=== PATIENT | male | born 1955 ===

== ENCOUNTER 2017-11-14 15:26 | Inpatient (IN) | payer SELFPAY ==
[2017-11-14] MEDS ORDERED: Multivitamin (MVI) 10 ML, Thiamine 100 MG, Folic Acid 1 MG in Dextrose 5%/0.45% NS 1,00... IV ONE (15:42)
--- NOTE | 2017-11-14 15:53 | ED PDOC ---
HPI: Altered Mental Status Time Seen by Provider: 11/14/17 15:41 Chief Complaint (Nursing): Altered Mental Status History Per: Patient, EMS History/Exam Limitations: Intoxication Onset/Duration Of Symptoms: Days (1) Current Symptoms Are (Timing): Still Present Description Of Symptoms: Confused Usual Baseline: Alert Oriented Exacerbating Factor(s): Alcohol Use Use Of Anticoag/Antiplatlets: No Severity: Moderate Additional History Per: Patient, EMS Associated Symptoms: Disoriented Additional Complaint(s): Patient was BIBA for AMS and possible alcohol intoxication. Patient was loitering on the street around a store. He fell and EMS was called. LOC was not reported. Patient admits to drinking alcohol today. NIHSS Stroke Scale - Date/Time Evaluation Performed Date Performed: 11/14/17 Time Performed: 15:50 When Was NIHSS Performed: Baseline - How Severe is the Stroke Level of Consciousness: 0=Alert LOC to Questions: 2=Neither correct LOC to commands: 0=Obeys both correctly Best Gaze: 0=Normal Visual: 0=No visual loss Facial: 0=Normal Motor Arm - Left: 0=No drift Motor Arm - Right: 0=No drift Motor Leg - Left: 0=No drift Motor Leg - Right: 0=No drift Limb Ataxia: 0=Absent Sensory: 0=Normal Best Language: 0=No aphasia Dysarthia: 1=Mild to moderate slurring Extinction & Inattention (Neglect): 0=Normal, no object Score: 3 Severity Of Stroke: 1-4 = Minor Stroke rTPA Inclusion/Exclusion - Refusal of Treatment Patient Refused Treatment: No - Inclusion Criteria for Altepase Patient is 18 years or Older: Yes Clinical DX Ischemic Stroke Cause Neurological Deficit: No Time of Onset Established Less Than 270 Mins Before TX Begin: No Risk/Benefit Discussed With Patient/Family Member Present: Yes Past Medical History Reviewed: Historical Data, Nursing Documentation, Vital Signs, Unable To Obtain Vital Signs: Last Vital Signs Temp 98.9 F 11/14/17 15:27 Pulse 110 H 11/14/17 15:27 Resp 20 11/14/17 15:27 BP 140/93 H 11/14/17 15:27 Pulse Ox 97 11/14/17 15:27 - Medical History PMH: No Chronic Diseases - Surgical History Surgical History: No Surg Hx - Family History Family History: States: No Known Family Hx - Allergies Allergies/Adverse Reactions: Allergies Allergy/AdvReac Type Severity Reaction Status Date / Time Unobtainable Allergy Verified 11/14/17 15:27 Review of Systems Review Of Systems: ROS cannot be obtained secondary to pt's inabilty to answer questions. Physical Exam - Reviewed Nursing Documentation Reviewed: Yes Vital Signs Reviewed: Yes - Physical Exam Appears: Positive for: No Acute Distress (disheveled) Head Exam: Positive for: ATRAUMATIC, NORMAL INSPECTION, NORMOCEPHALIC Skin: Positive for: Normal Color, Warm, Dry Eye Exam: Positive for: EOMI, PERRL ENT: Positive for: Normal ENT Inspection Neck: Positive for: Painless ROM, Supple Cardiovascular/Chest: Positive for: Regular Rate, Rhythm, Tachycardia Respiratory: Positive for: Normal Breath Sounds. Negative for: Respiratory Distress Gastrointestinal/Abdominal: Positive for: Soft. 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 Negative for: Motor/Sensory Deficits - Laboratory Results Result Diagrams: 11/15/17 04:15 11/15/17 04:15 - ECG O2 Sat by Pulse Oximetry: 97 Medical Decision Making Medical Decision Making: Impression AMS, alcohol abuse, head injury Diff include Alcohol intoxication, alcohol encephalopathy, encephalopathy hepatic, CVA, syncope, head injury with ICH Plan: CBC CMP alcohol ammonia CT head EKG trop reassess 18:[address]: FINDINGS: HEMORRHAGE: No acute parenchymal, subarachnoid or extra-axial hemorrhage. BRAIN: There are moderate to significant diffuse/confluent chronic white matter ischemic changes seen extending from the periventricular into the subcortical regions bilaterally. Changes are most pronounced in the parietal lobes. In addition, there are scattered chronic bilateral basal nuclei lacunar type infarcts. Small lacunar type infarcts also seen both cerebellar hemispheres. Note that the possibility of a small hyperacute infarct cannot be excluded on this study. Clinical correlation recommended. VENTRICLES: There is marked dilatation of the atria and occipital horns possibly secondary to central volume loss on which is above most pronounced in the temporal occipital and parietal watershed zone regions. CALVARIUM: Unremarkable. No acute calvarial fractures. PARANASAL SINUSES: Minor mucosal thickening seen within both maxillary antrum. Minimal mucosal thickening in the ethmoid air complex extending superiorly into the frontal sinus. . There are old bilateral lamina papyracea fractures. . There is focal leftward deviation of the nasal septum associated with a left-sided septal bone bar. MASTOID AIR CELLS: Unremarkable as visualized. No inflammatory changes. OTHER FINDINGS: None. IMPRESSION: Limited motion degraded study. Moderate to significant diffuse/confluent chronic white matter ischemic changes seen extending from the periventricular into the subcortical regions bilaterally. Changes are most pronounced in the parietal lobes. In addition, there are scattered chronic bilateral basal nuclei lacunar type infarcts. Small lacunar type infarcts also seen both cerebellar hemispheres. Note that the possibility of a small hyperacute infarct cannot be excluded on this study. Clinical correlation recommended. Marked dilatation of the atria and occipital horns possibly secondary to central volume loss on which is above most pronounced in the temporal occipital and parietal watershed zone regions [address] Mcneill. He will be consult although considers CVA less likely. Recommends drug screen, admission for AMS further work u to rule out CVA. Disposition - Clinical Impression Clinical Impression: Altered mental status, Alcohol intoxication - Patient ED Disposition Is Patient to be Admitted: Yes Discussed With DrLd: Helio Beaulieu Doctor Will See Patient In The: ED Counseled Patient/Family Regarding: Studies Performed, Diagnosis - Disposition Disposition Time: 06:30 Condition: FAIR - Pt Status Changed To: Hospital Disposition Of: Inpatient - Admit Certification Admit to Inpatient:: After my assessment, the patient will require hospitalization for at least two midnights. This is because of the severity of symptoms shown, intensity of services needed, and/or the medical risk in this patient being treated as an outpatient. - POA Present On Arrival: Falls Or Trauma, Pressure Ulcer (feet)
[2017-11-14 16:48] LABS: BASO % 0.5 % (0.0-2.0); EOS # 0.1 K/uL (0.0-0.7); EOS % 0.7 % (0.0-4.0); HEMOGLOBIN 13.8 g/dL (12.0-18.0); LYMPH # 1.2 K/uL (1.0-4.3); LYMPH % 14.4 % (20.0-40.0); MEAN CELL VOLUME 90.9 fl (80.0-94.0); MEAN CORPUSCULAR HEMOGLOBIN 30.3 pg (27.0-31.0); MEAN CORPUSCULAR HGB CONC 33.3 g/dL (33.0-37.0); MEAN PLATELET VOLUME 9.4 fl (7.2-11.7); MONO # 0.8 K/uL (0.0-0.8); MONO % 10.3 % (0.0-10.0); NEUT # 6.1 K/uL (1.8-7.0); NEUT % 74.1 % (50.0-75.0); RBC 4.56 Mil/uL (4.40-5.90); RED CELL DISTRIBUTION WIDTH 15.1 % (11.5-14.5); WHITE BLOOD COUNT 8.2 K/uL (4.8-10.8)
[2017-11-14 16:55] LABS: ALBUMIN 3.9 g/dL (3.5-5.0); BLOOD UREA NITROGEN 12 mg/dl (9-20); CALCIUM 9.5 mg/dL (8.4-10.2); GFR AFRICAN-AMERICAN > 60; GFR NON-AFRICAN AMERICAN > 60
[2017-11-14 16:56] LABS: ALT/SGPT 29 U/L (21-72); AST/SGOT 36 U/L (17-59)
--- NOTE | 2017-11-14 18:01 | CT ---
PROCEDURE: CT HEAD WITHOUT CONTRAST. HISTORY: AMS COMPARISON: None available. TECHNIQUE: Axial computed tomography images were obtained through the head/brain without intravenous contrast. Radiation dose: Total exam DLP = 1333.33 mGy-cm. This CT exam was performed using one or more of the following dose reduction techniques: Automated exposure control, adjustment of the mA and/or kV according to patient size, and/or use of iterative reconstruction technique. FINDINGS: HEMORRHAGE: No acute parenchymal, subarachnoid or extra-axial hemorrhage. BRAIN: There are moderate to significant diffuse/confluent chronic white matter ischemic changes seen extending from the periventricular into the subcortical regions bilaterally. Changes are most pronounced in the parietal lobes. In addition, there are scattered chronic bilateral basal nuclei lacunar type infarcts. Small lacunar type infarcts also seen both cerebellar hemispheres. Note that the possibility of a small hyperacute infarct cannot be excluded on this study. Clinical correlation recommended. VENTRICLES: There is marked dilatation of the atria and occipital horns possibly secondary to central volume loss on which is above most pronounced in the temporal occipital and parietal watershed zone regions. CALVARIUM: Unremarkable. No acute calvarial fractures. PARANASAL SINUSES: Minor mucosal thickening seen within both maxillary antrum. Minimal mucosal thickening in the ethmoid air complex extending superiorly into the frontal sinus. . There are old bilateral lamina papyracea fractures. . There is focal leftward deviation of the nasal septum associated with a left-sided septal bone bar. MASTOID AIR CELLS: Unremarkable as visualized. No inflammatory changes. OTHER FINDINGS: None. IMPRESSION: Limited motion degraded study. Moderate to significant diffuse/confluent chronic white matter ischemic changes seen extending from the periventricular into the subcortical regions bilaterally. Changes are most pronounced in the parietal lobes. In addition, there are scattered chronic bilateral basal nuclei lacunar type infarcts. Small lacunar type infarcts also seen both cerebellar hemispheres. Note that the possibility of a small hyperacute infarct cannot be excluded on this study. Clinical correlation recommended. Marked dilatation of the atria and occipital horns possibly secondary to central volume loss on which is above most pronounced in the temporal occipital and parietal watershed zone regions
--- NOTE | 2017-11-14 18:43 | CP.PCM.HP ---
History of Present Illness - History of Present Illness History of Present Illness: 63 yo male brought in by EMS after he was found falling in the street with unsteady gait. Patient was unable to give further information. Present on Admission - Present on Admission Any Indicators Present on Admission: No History of DVT/PE: No History of Uncontrolled Diabetes: No Urinary Catheter: No Decubitus Ulcer Present: No Review of Systems - Review of Systems Systems not reviewed;Unavailable: Altered Mental Status Past Patient History - Past Social History Smoking Status: Unknown If Ever Smoked - PSYCHIATRIC Hx Substance Use: No (Unknown) Meds Allergies/Adverse Reactions: Allergies Allergy/AdvReac Type Severity Reaction Status Date / Time Unobtainable Allergy Verified 11/14/17 15:27 Physical Exam - Constitutional Appears: No Acute Distress, Unkempt, Confused - Head Exam Head Exam: ATRAUMATIC - Eye Exam Eye Exam: absent: Scleral icterus - ENT Exam ENT Exam: Mucous Membranes Moist - Neck Exam Neck exam: Negative for: Meningismus - Respiratory Exam Respiratory Exam: absent: Rales, Rhonchi, Wheezes, Respiratory Distress - Cardiovascular Exam Cardiovascular Exam: Tachycardia - GI/Abdominal Exam GI & Abdominal Exam: Soft. absent: Tenderness - Rectal Exam Rectal Exam: Deferred - Neurological Exam Neurological exam: Altered - Psychiatric Exam Psychiatric exam: Flat Affect - Skin Skin Exam: Dry, Intact Results - Vital Signs Recent Vital Signs: Last Vital Signs Temp 98.9 F 11/14/17 15:27 Pulse 110 H 11/14/17 15:27 Resp 20 11/14/17 15:27 BP 140/93 H 11/14/17 15:27 Pulse Ox 97 11/14/17 18:36 - Labs Result Diagrams: 11/14/17 16:30 11/14/17 16:30 Labs: Laboratory Results - last 24 hr 11/14/17 11/14/17 11/14/17 16:10 16:30 16:30 WBC 8.2 RBC 4.56 Hgb 13.8 Hct 41.5 MCV 90.9 MCH 30.3 MCHC 33.3 RDW 15.1 H Plt Count 163 MPV 9.4 Neut % (Auto) 74.1 Lymph % (Auto) 14.4 L [place] % (Auto) 10.3 H Eos % (Auto) 0.7 Baso % (Auto) 0.5 Neut # (Auto) 6.1 Lymph # (Auto) 1.2 [place] # (Auto) 0.8 Eos # (Auto) 0.1 Baso # (Auto) 0.0 Sodium 138 Potassium 3.9 Chloride 96 L Carbon Dioxide 27 Anion Gap 19 BUN 12 Creatinine 0.7 L Est GFR ( Amer) > 60 Est GFR (Non-Af Amer) > 60 POC Glucose (mg/dL) 108 Random Glucose 126 H Calcium 9.5 Total Bilirubin 0.7 AST 36 ALT 29 Alkaline Phosphatase 69 Troponin I < 0.0120 Total Protein 7.6 Albumin 3.9 Globulin 3.7 Albumin/Globulin Ratio 1.0 Alcohol, Quantitative < 10 Assessment & Plan - Assessment and Plan (Free Text) Assessment: 63 yo male brought in by EMS after he was found falling in the street with unsteady gait. Patient was unable to give further information. 1. AMS probably secondary to Alcoholic Encephalopathy IV hydration with NSS 150cc/hr Thiamine 100mg IV Folic Acid 1mg IV serum drug screen CT scan of the head: chronic white matter ischemic changes, chronic lacunar infarct on both cerebellar areas
[2017-11-14 19:11] LABS: BARBITURATES, UR NEGATIVE (NEGATIVE); BENZODIAZEPINES, UR NEGATIVE (NEGATIVE); OPIATES, UR NEGATIVE (NEGATIVE); PHENCYCLIDINE, UR NEGATIVE (NEGATIVE)
[2017-11-15] MEDS: Sodium Chloride 0.9% 1,000 ML IV SCH ×4 (02:16→21:56)
[2017-11-15 05:10] LABS: BASO % 0.4 % (0.0-2.0); EOS # 0.1 K/uL (0.0-0.7); EOS % 0.9 % (0.0-4.0); HEMOGLOBIN 14.2 g/dL (12.0-18.0); LYMPH # 1.9 K/uL (1.0-4.3); LYMPH % 21.7 % (20.0-40.0); MEAN CORPUSCULAR HEMOGLOBIN 30.8 pg (27.0-31.0); MEAN CORPUSCULAR HGB CONC 33.9 g/dL (33.0-37.0); MEAN PLATELET VOLUME 9.3 fl (7.2-11.7); MONO % 10.8 % (0.0-10.0); NEUT # 5.9 K/uL (1.8-7.0); NEUT % 66.2 % (50.0-75.0); NRBC % 0.1 % (0.0-0.0); RBC 4.62 Mil/uL (4.40-5.90); RED CELL DISTRIBUTION WIDTH 15.2 % (11.5-14.5); WHITE BLOOD COUNT 8.9 K/uL (4.8-10.8)
[2017-11-15 05:22] LABS: BLOOD UREA NITROGEN 8 mg/dl (9-20); CALCIUM 8.7 mg/dL (8.4-10.2); GFR AFRICAN-AMERICAN > 60; GFR NON-AFRICAN AMERICAN > 60
[2017-11-15 06:32] LABS: T4 7.05 ug/dl (5.5-11.0)
[2017-11-15 08:41] LABS: PARTIAL THROMBOPLASTIN TIME 29.7 Seconds (25.6-37.1); PROTHROMBIN TIME 11.6 Seconds (9.8-13.1)
[2017-11-15] MEDS ORDERED: Pantoprazole 40 mg EC Tab PO SCH (09:00)
[2017-11-15] MEDS: Thiamine 100 mg/ml Inj IV SCH (09:11)
--- NOTE | 2017-11-15 09:47 | CP.PCM.PN ---
Subjective - Date & Time of Evaluation Date of Evaluation: 11/15/17 Time of Evaluation: 09:30 - Subjective Subjective: Pt is unkempt unknown name No fever remains lethargic but arousable follows simple commands speech slurred denies pain Objective - Vital Signs/Intake and Output Vital Signs (last 24 hours): Temp Pulse Resp BP Pulse Ox 97.7 F 82 20 130/76 98 11/15/17 07:54 11/15/17 09:28 11/15/17 07:54 11/15/17 09:28 11/15/17 07:54 - Medications Medications: Current Medications Aspirin (Aspirin Supp) 300 mg [place] DAILY [facility] Last Admin: 11/15/17 09:15 Dose: 300 mg Sodium Chloride (Sodium Chloride 0.9%) 1,000 mls @ 150 mls/hr IV .Q6H40M [facility] Last Admin: 11/15/17 09:20 Dose: 150 mls/hr Folic Acid 1 mg/ Sodium (Chloride) 100.2 mls @ 60 mls/hr IVPB DAILY [facility] Last Admin: 11/15/17 09:08 Dose: 60 mls/hr Lorazepam (Ativan) 1 mg IVP Q6 PRN PRN Reason: Agitation Pantoprazole Sodium (Protonix Inj) 40 mg IVP DAILY [facility] Thiamine HCl (Vitamin B1 Inj) 100 mg IV DAILY [facility] Last Admin: 11/15/17 09:11 Dose: 100 mg - Labs Labs: 11/15/17 04:15 11/15/17 04:15 PT 11.6 Seconds (9.8-13.1) 11/15/17 08:15 INR 1.0 (0.9-1.2) 11/15/17 08:15 APTT 29.7 Seconds (25.6-37.1) 11/15/17 08:15 - Constitutional Appears: Unkempt, Chronically Ill - Head Exam Head Exam: NORMOCEPHALIC - Eye Exam Eye Exam: Normal appearance - ENT Exam ENT Exam: Mucous Membranes Dry, Normal External Ear Exam - Neck Exam Neck Exam: Full ROM. absent: Meningismus - Respiratory Exam Respiratory Exam: Rales, Rhonchi. absent: Wheezes, Respiratory Distress - Cardiovascular Exam Cardiovascular Exam: REGULAR RHYTHM, +S1, +S2 - GI/Abdominal Exam GI & Abdominal Exam: Soft, Normal Bowel Sounds. absent: Tenderness - Extremities Exam Extremities Exam: Normal Capillary Refill. absent: Calf Tenderness, Pedal Edema Additional comments: moves all extremities - Neurological Exam Additional comments: lethargic follows simple command said " NO" when asked if he is in pain" Shaked head when asjked if he has family - Psychiatric Exam Psychiatric exam: Flat Affect - Skin Skin Exam: Dry, Normal Color, Warm Assessment and Plan (1) Altered mental status Status: Acute (2) Slurring of speech Status: Acute (3) HTN (hypertension) Status: Chronic (4) DVT prophylaxis Status: Acute - Assessment and Plan (Free Text) Assessment: White male , Tez White , unkempt, unknown if homeless, per ED documentation, he admitted to Alcoholism, he observed to be falling in the street so was brought in by EMS Pt is lethargic however arousable and follows simple commands however his speech is slurred. CT of head : Moderate to significant diffuse/confluent chronic white matter ischemic changes seen extending from the periventricular into the subcortical regions bilaterally. Changes are most pronounced in the parietal lobes. In addition, there are scattered chronic bilateral basal nuclei lacunar type infarcts. Small lacunar type infarcts also seen both cerebellar hemispheres. Note that the possibility of a small hyperacute infarct cannot be excluded on this study. Clinical correlation recommended. Marked dilatation of the atria and occipital horns possibly secondary to central volume loss on which is above most pronounced in the temporal occipital and parietal watershed zone regions (1) Altered mental status with Slurring of speech, unclear etiology - prob sec to ETOH withdrawal r/o CVA Chronic infarcts seen on CT of head Neuro consult Neuro checks start ASA, statin DVT proph ECHO MRI of brain Carotid Sono (2) HTN (hypertension) Status: Chronic ? sec to withdrawal vs chronic monitor closely allow for permissive HTN for now 3. ? Alcoholism unclear if alcoholic ETOH level low urine Tox : neg Thiamine and FA watch for active withdrawal sxs (4) DVT prophylaxis Status: Acute Lovenox
--- NOTE | 2017-11-15 17:01 | US ---
PROCEDURE: Duplex ultrasound of the carotid and vertebral arteries. HISTORY: Altered mental status, r/o tia, encephalopathy COMPARISON: None available. TECHNIQUE: Grayscale and duplex Doppler evaluation of the cervical carotid and vertebral arteries were performed. The common carotid, carotid bifurcations and cervical ICA and proximal ECA were evaluated. The vertebral arteries were evaluated for gross patency and direction. FINDINGS: RIGHT CAROTID ARTERIES: Common Carotid Artery: Intimal thickening is present Maximal flow velocity of 120.5 cm/s. Carotid Bifurcation: Intimal thickening is present Internal Carotid Artery:Heterogeneous plaque formation. Maximal flow velocity of 101.2 cm/s. External Carotid Artery (proximal branches): Normal. Maximal flow velocity of 94.6 cm/s. ICA/CCA Ratio: 0.9 LEFT CAROTID ARTERIES: Common Carotid Artery: Intimal thickening is present Maximal flow velocity of 91.4 cm/s. Carotid Bifurcation: Intimal thickening is present Internal Carotid Artery:Patient related issues have resulted in nondiagnostic study of the ICA External Carotid Artery (proximal branches): Normal. Maximal flow velocity of 91.4 cm/s. VERTEBRAL ARTERIES: Right Vertebral Artery: Patent. Antegrade flow. Left Vertebral Artery: Patent. Antegrade flow. OTHER FINDINGS: None. IMPRESSION: Right ICA degree of stenosis: Less than 50% Left nondiagnostic assessment of the left ICA % Reference Internal Carotid Artery (ICA) Peak Systolic Velocity (PSV) for above: 1. Less than 50% stenosis less than 125 cm/s peak systolic velocity 2. 50-69% stenosis 125-230cm/s peak systolic velocity 3. Greater than 70% but less than near occlusion greater than 230 cm/s peak systolic velocity
--- NOTE | 2017-11-15 17:22 | RAD ---
HISTORY: to check for metal prior to MRI COMPARISON: No prior. FINDINGS: BONES: Alignment maintained. No fracture. DISC SPACES: Normal. SOFT TISSUES: Normal. OTHER FINDINGS: No evidence of metallic radiopaque foreign body. IMPRESSION: Normal radiographs of the thoracic spine.
--- NOTE | 2017-11-15 17:23 | RAD ---
PROCEDURE: Cervical Spine Radiographs. HISTORY: Pain. COMPARISON: None. FINDINGS: BONES: Technically limited examination. Vertebral bodies maintained in height. Limited evaluation of lower cervical vertebra. Normal alignment maintained. DISC SPACES: Normal. SOFT TISSUES: Normal. No prevertebral soft tissue swelling. OTHER FINDINGS: No radiopaque metallic foreign body identified. IMPRESSION: Normal cervical spine radiographs
--- NOTE | 2017-11-15 17:27 | RAD ---
PROCEDURE: Radiographs of the Lumbar Spine. HISTORY: to check for metal prior to MRI COMPARISON: No prior. FINDINGS: BONES: Normal alignment. No listhesis. No fracture. DISC SPACES: Narrowing of the L4-5 disc space consistent with degenerative disc disease. The remaining intervertebral disc spaces are maintained in height. OTHER FINDINGS: No radiopaque metallic foreign body identified. IMPRESSION: Degenerative disc disease at L4-5.
--- NOTE | 2017-11-15 20:13 | CP.PCM.CON ---
History of Present Illness - History of Present Illness History of Present Illness: The patient is a 63-year-old Tez White, who was found dysarthric, lethargic on the side-walk and brought in to the ED due to unsteadiness and confusion. He was given Ativan about 1/2 an hour prior to my evaluation and he was not able to provide me with any history. Review of Systems - Review of Systems All systems: reviewed and no additional remarkable complaints except Past Patient History - Past Medical History & Family History Past Medical History?: No - Past Social History Smoking Status: unknown - MUSCULOSKELETAL/RHEUMATOLOGICAL Hx Falls: (unknown) - PSYCHIATRIC Hx Substance Use: No (Unknown) - SURGICAL HISTORY Hx Surgeries: No Other/Comment: Unknown - ANESTHESIA Hx Anesthesia: (unknown) Meds Allergies/Adverse Reactions: Allergies Allergy/AdvReac Type Severity Reaction Status Date / Time Unobtainable Allergy Verified 11/14/17 15:27 - Medications Medications: Current Medications Aspirin (Aspirin Supp) 300 mg [place] DAILY [facility] Last Admin: 11/15/17 09:15 Dose: 300 mg Enoxaparin Sodium (Lovenox) 40 mg SC DAILY [facility] PRN Reason: Protocol Sodium Chloride (Sodium Chloride 0.9%) 1,000 mls @ 150 mls/hr IV .Q6H40M [facility] Last Admin: 11/15/17 17:55 Dose: 150 mls/hr Folic Acid 1 mg/ Sodium (Chloride) 100.2 mls @ 60 mls/hr IVPB DAILY [facility] Last Admin: 11/15/17 09:08 Dose: 60 mls/hr Lorazepam (Ativan) 1 mg IVP Q6 PRN PRN Reason: Agitation Last Admin: 11/15/17 14:39 Dose: 1 mg Pantoprazole Sodium (Protonix Inj) 40 mg IVP DAILY [facility] Last Admin: 11/15/17 10:24 Dose: 40 mg Thiamine HCl (Vitamin B1 Inj) 100 mg IV DAILY [facility] Last Admin: 11/15/17 09:11 Dose: 100 mg Physical Exam - Constitutional Appears: Unkempt, Confused - Neurological Exam Neurological exam: Altered, CN II-XII Intact, Reflexes Normal Additional comments: Moves all extremities to painful stimulus. Reflexes are intact. Results - Vital Signs Recent Vital Signs: Last Vital Signs Temp 97.9 F 11/15/17 19:55 Pulse 107 H 11/15/17 19:55 Resp 17 11/15/17 19:55 BP 131/77 11/15/17 19:55 Pulse Ox 95 11/15/17 19:55 - Labs Result Diagrams: 11/15/17 04:15 11/15/17 04:15 Labs: Laboratory Results - last 24 hr 11/15/17 11/15/17 11/15/17 04:15 04:15 06:00 WBC 8.9 RBC 4.62 Hgb 14.2 Hct 42.0 MCV 91.0 MCH 30.8 MCHC 33.9 RDW 15.2 H Plt Count 163 MPV 9.3 Neut % (Auto) 66.2 Lymph % (Auto) 21.7 [place] % (Auto) 10.8 H Eos % (Auto) 0.9 Baso % (Auto) 0.4 Neut # (Auto) 5.9 Lymph # (Auto) 1.9 [place] # (Auto) 1.0 H Eos # (Auto) 0.1 Baso # (Auto) 0.0 PT INR APTT Sodium 134 Potassium 3.7 Chloride 98 Carbon Dioxide 29 Anion Gap 11 BUN 8 L Creatinine 0.6 L Est GFR ( Amer) > 60 Est GFR (Non-Af Amer) > 60 Random Glucose 110 Hemoglobin A1c 5.6 Calcium 8.7 Triglycerides Cholesterol LDL Cholesterol Direct HDL Cholesterol Vitamin B12 25-OH Vitamin D Total Thyroxine (T4) Total T3 TSH 3rd Generation RPR 11/15/17 11/15/17 11/15/17 06:00 06:00 08:15 WBC RBC Hgb Hct MCV MCH MCHC RDW Plt Count MPV Neut % (Auto) Lymph % (Auto) [place] % (Auto) Eos % (Auto) Baso % (Auto) Neut # (Auto) Lymph # (Auto) [place] # (Auto) Eos # (Auto) Baso # (Auto) PT 11.6 INR 1.0 APTT 29.7 Sodium Potassium Chloride Carbon Dioxide Anion Gap BUN Creatinine Est GFR ( Amer) Est GFR (Non-Af Amer) Random Glucose Hemoglobin A1c Calcium Triglycerides 118 Cholesterol 180 LDL Cholesterol Direct 117 HDL Cholesterol 43 Vitamin B12 292 25-OH Vitamin D Total < 12.8 L Thyroxine (T4) 7.05 Total T3 1.00 L TSH 3rd Generation 0.61 RPR 11/15/17 08:15 WBC RBC Hgb Hct MCV MCH MCHC RDW Plt Count MPV Neut % (Auto) Lymph % (Auto) [place] % (Auto) Eos % (Auto) Baso % (Auto) Neut # (Auto) Lymph # (Auto) [place] # (Auto) Eos # (Auto) Baso # (Auto) PT INR APTT Sodium Potassium Chloride Carbon Dioxide Anion Gap BUN Creatinine Est GFR ( Amer) Est GFR (Non-Af Amer) Random Glucose Hemoglobin A1c Calcium Triglycerides Cholesterol LDL Cholesterol Direct HDL Cholesterol Vitamin B12 25-OH Vitamin D Total Thyroxine (T4) Total T3 TSH 3rd Generation RPR Nonreactive Assessment & Plan (1) Altered mental status Assessment and Plan: Likely due to toxic-metabolic encephalopathy. Will evaluate with EEG and obtain an MRI to determine if there is underlying neuropathology. Will re- examine the patient tomorrow after sedation has worn off. Thank you. Status: Acute Priority: High
[2017-11-16] MEDS ORDERED: Sodium Chloride 0.9% 1,000 ML IV SCH (03:48)
[2017-11-16 05:27] LABS: HEMOGLOBIN 14.2 g/dL (12.0-18.0); MEAN CORPUSCULAR HEMOGLOBIN 30.6 pg (27.0-31.0); MEAN CORPUSCULAR HGB CONC 33.7 g/dL (33.0-37.0); RBC 4.63 Mil/uL (4.40-5.90); WHITE BLOOD COUNT 13.3 K/uL (4.8-10.8)
[2017-11-16 05:46] LABS: BLOOD UREA NITROGEN 7 mg/dl (9-20); CALCIUM 8.5 mg/dL (8.4-10.2); GFR AFRICAN-AMERICAN > 60; GFR NON-AFRICAN AMERICAN > 60
--- NOTE | 2017-11-16 07:53 | RAD ---
HISTORY: SOB/Congestion COMPARISON: No prior. FINDINGS: LUNGS: Respiratory motion is excessive and generate artifacts severely limiting this evaluation. No prominent infiltrate is appreciable. PLEURA: No significant pleural effusion identified ; pneumothorax cannot be excluded in this patient due to respiratory motion related artifact. CARDIOVASCULAR: Normal. OSSEOUS STRUCTURES: No significant abnormalities. VISUALIZED UPPER ABDOMEN: Normal. OTHER FINDINGS: None. IMPRESSION: No gross infiltrate or pleural effusion appreciable. Pneumothorax cannot be excluded greater excessive restrained motion generate artifacts severely limiting this evaluation. Repeat chest radiography recommended when feasible. Clinically correlate further.
[2017-11-16] MEDS ORDERED: Albuterol-Ipratrop 3 mg / 0.5 (3 ml) UD INH STA (08:30)
[2017-11-16] MEDS: Thiamine 100 mg/ml Inj IV SCH (08:32)
[2017-11-16] MEDS ORDERED: Albuterol-Ipratrop 3 mg / 0.5 (3 ml) UD ONE (08:33)
--- NOTE | 2017-11-16 08:54 | CP.PCM.PN ---
Subjective - Date & Time of Evaluation Date of Evaluation: 11/16/17 Time of Evaluation: 08:30 - Subjective Subjective: Noticed that pt is more lethargic than yesterday minimally responsive to pain moves lower extremities Also noted tachypnea coarse BS coming from throat tachycardic Transferrred pt to ICU Pt now intubated on Mech Vent Objective - Vital Signs/Intake and Output Vital Signs (last 24 hours): Temp Pulse Resp BP Pulse Ox 98.1 F 131 H 18 187/95 H 91 L 11/16/17 07:56 11/16/17 07:56 11/16/17 07:56 11/16/17 07:56 11/16/17 07:56 - Medications Medications: Current Medications Aspirin (Aspirin Supp) 300 mg [place] DAILY [facility] Last Admin: 11/15/17 09:15 Dose: 300 mg Enoxaparin Sodium (Lovenox) 40 mg SC DAILY [facility] PRN Reason: Protocol Folic Acid 1 mg/ Sodium (Chloride) 100.2 mls @ 60 mls/hr IVPB DAILY [facility] Last Admin: 11/15/17 09:08 Dose: 60 mls/hr Sodium Chloride (Sodium Chloride 0.9%) 1,000 mls @ 42 mls/hr IV .[id number] [facility] Last Admin: 11/16/17 04:06 Dose: 42 mls/hr Lorazepam (Ativan) 1 mg IVP Q6 PRN PRN Reason: Agitation Last Admin: 11/15/17 14:39 Dose: 1 mg Pantoprazole Sodium (Protonix Inj) 40 mg IVP DAILY [facility] Last Admin: 11/16/17 08:36 Dose: 40 mg Thiamine HCl (Vitamin B1 Inj) 100 mg IV DAILY [facility] Last Admin: 11/16/17 08:32 Dose: 100 mg - Labs Labs: 11/16/17 04:20 11/16/17 04:20 PT 11.6 Seconds (9.8-13.1) 11/15/17 08:15 INR 1.0 (0.9-1.2) 11/15/17 08:15 APTT 29.7 Seconds (25.6-37.1) 11/15/17 08:15 - Constitutional Appears: Obtunded , Unkempt, Chronically Ill - Head Exam Head Exam: NORMOCEPHALIC - Eye Exam Eye Exam: Normal appearance pupils 2-3 mm sluggishly reactive - ENT Exam ENT Exam: Mucous Membranes Dry, Normal External Ear Exam - Neck Exam Neck Exam: Full ROM. absent: Meningismus - Respiratory Exam Respiratory Exam: Rales, Rhonchi. absent: Wheezes tachypneic , coarse BS - Cardiovascular Exam Cardiovascular Exam:tachycardic, REGULAR RHYTHM, +S1, +S2 - GI/Abdominal Exam GI & Abdominal Exam: Soft, Normal Bowel Sounds. absent: Tenderness - Extremities Exam Extremities Exam: Normal Capillary Refill. absent: Calf Tenderness, Pedal Edema noted to move lower extremities - Neurological Exam Obtunded noticed that he withdraws from pain bymoving lower extremities - Psychiatric Exam Psychiatric exam: obtunded - Skin Skin Exam: Dry, Normal Color, Warm Assessment and Plan (1) Altered mental status Status: Acute (2) Slurring of speech Status: Acute (3) HTN (hypertension) Status: Chronic (4) DVT prophylaxis Status: Acute (5) Acute metabolic encephalopathy Status: Acute (6) Acute respiratory insufficiency Status: Acute - Assessment and Plan (Free Text) Assessment: White male , Tez White , unkempt, unknown PMH, per ED documentation - ? Alcoholism . He was brought in by EMS after he was he observed by bystanders falling in the street. Pt was lethargic on admission however arousable , noted to have a facial droop and his speech was slurred. CT of head : Moderate to significant diffuse/confluent chronic white matter ischemic changes seen extending from the periventricular into the subcortical regions bilaterally. Changes are most pronounced in the parietal lobes. In addition, there are scattered chronic bilateral basal nuclei lacunar type infarcts. Small lacunar type infarcts also seen both cerebellar hemispheres. Note that the possibility of a small hyperacute infarct cannot be excluded on this study. Clinical correlation recommended. Marked dilatation of the atria and occipital horns possibly secondary to central volume loss on which is above most pronounced in the temporal occipital and parietal watershed zone regions Today 11/16 : Pt is noted to be obtunded , and unable to clear his secretions, tachypneic and saturation in the 80%. Pt transferred to ICU and intubated for airway protection. Rpt CT of head : no change. 1. Acute Respiratory Insufficiency due to Altered Level of consciousness Pt transferred to ICU Pt unable to clear secretions, tachypneic and desaturating Intubated for airway protection- now on Mech Vent CXR : no infiltrate (2.) Encephalopathy (Altered mental status with Slurring of speech), unclear etiology further work up needed Pt is more lethargic - obtunded today Chronic infarcts seen on CT of head, rpt CT of head 11/16 : no change Neuro consulted Neuro checks cont ASA ECHO MRI of brain Carotid Sono: no significant stenosis EEG Ammonia level normal TSH : normal Pt has no fever, no signs of infection, check Procalcitonin level also check Prolactin (3) HTN (hypertension) Status: Chronic monitor closely allow for permissive HTN for now 4. ? Alcoholism unclear if alcoholic, cannot obtain hx however ED note states that pt ETOH level low urine Tox : neg Thiamine and FA watch for active withdrawal sxs DVT prophylaxis Status: Acute Lovenox
--- NOTE | 2017-11-16 10:02 | CT ---
PROCEDURE: CT HEAD WITHOUT CONTRAST. HISTORY: worsening AMS, r/o Bleed COMPARISON: Unenhanced head CT 11/14/2017. TECHNIQUE: Axial computed tomography images were obtained through the head/brain without intravenous contrast. Radiation dose: Total exam DLP = 993.53 mGy-cm. This CT exam was performed using one or more of the following dose reduction techniques: Automated exposure control, adjustment of the mA and/or kV according to patient size, and/or use of iterative reconstruction technique. FINDINGS: HEMORRHAGE: No intracranial hemorrhage. BRAIN: There remains no evidence to suggest an acute or subacute brain infarction at this time with extensive chronic microangiopathy reiterated and pbke-ar-dirknsiz diffuse cerebral atrophy. Central atrophy versus communicators hydrocephalus pattern remains with a dilated ventricular system again appreciated diffusely. No masses appreciated and multiple right the laminae chronic lacunes are seen as well as in the bilateral basal ganglia. No atrophy or chronic microvascular ischemic changes. VENTRICLES: Unremarkable. No hydrocephalus. CALVARIUM: Unremarkable. PARANASAL SINUSES: Unremarkable as visualized. No significant inflammatory changes. MASTOID AIR CELLS: Unremarkable as visualized. No inflammatory changes. OTHER FINDINGS: None. IMPRESSION: Stable age related neuro degenerative changes are findings are appreciate without definite acute intracranial disease as per standard CT criteria. Central atrophy or a communicating hydrocephalus related diffuse ventricular dilatation is again demonstrated. Further clinical correlation is recommended.
[2017-11-16] MEDS: Enoxaparin 40 mg Syringe SC SCH (10:12)
[2017-11-16] MEDS ORDERED: Sodium Chloride 3% for Inhalation 4 ML VIAL.NEB IH PRN ×2 (10:36→23:43)
[2017-11-16] MEDS ORDERED: Propofol 10 mg/ml Inj (20 ML) IV ONE (10:41)
--- NOTE | 2017-11-16 10:44 | CP.CCUPN ---
<JoseSánchezMich - Last Filed: 11/16/17 14:45> CCU Subjective - Physician Review Events Since Last Encounter (Free Text): ICU Admission note, transfer from [address] [place] [address] 63 y/o male, with an unknown PMHx, whom was admitted to telemetry on 11/14/2017 secondary to AMS has been transferred to the ICU secondary to being obtunded, unable to clear secretions, tachypnea and desaturation to 81%. Pt was evaluated at bedside in telemetry, put on 100% re-breather, and saturation only improved to 92%. He was obtunded, tachypneic and unable to clear airway secretions. All Labs and imaging reviewed during hospital stay thus far. ROS: unobtainable 2/2 to mental status PMHx: unobtainable Psurghx: unobtainable Meds: unobtainable ALL: unobtainable FamilyHx: unobtainable SocialHx: as per PMD, he has a suspected history of ETOH abuse, however quantifying level of abuse is unobtainable CCU Objective - Vital Signs / Intake & Output Vital Signs (Last 4 hours): Vital Signs Temp Pulse Resp BP Pulse Ox 11/16/17 09:00 131 H 80 L 11/16/17 08:30 98 F 122 H 24 127/81 94 L 11/16/17 07:56 98.1 F 131 H 18 187/95 H 91 L Intake and Output (Last 8hrs): Intake & Output 11/15/17 11/16/17 11/16/17 22:59 06:59 14:59 Intake Total 184 Balance 184 Intake: IV 84 Intake, Piggyback 100 - Physical Exam Physical Exam Limitations: Positive for: Altered Mental Status, Uncooperative Head: Positive for: Atraumatic, Normocephalic. Negative for: Ecchymosis, Abrasion, Laceration Pupils: Positive for: PERRL Extroacular Muscles: Positive for: EOMI. Negative for: Gaze Palsy Conjunctiva: Positive for: Normal. Negative for: Injected, Icteric Ears: Positive for: Normal Mouth: Positive for: Moist Mucous Membranes. Negative for: Normal Teeth ( missing dentition ) Pharnyx: Positive for: Normal. Negative for: ERYTHEMA, EXUDATE, TONSILS ENLARGED Neck: Positive for: Normal Range of Motion, Trachea Midline. Negative for: Meningeal Signs, JVD, Lymphadenopathy Respiratory/Chest: Positive for: Clear to Auscultation, Respiratory Distress, Accessory Muscle Use, Tachypneic. Negative for: Decreased Breath Sounds, Rales , Retracting, Rhonchi, Tender to Palpation Cardiovascular: Positive for: Normal S1, S2, Peripheal Pulses Present, Tachycardic. Negative for: Regular Rate and Rhythm, Murmurs, Irregular Rhythm, Rub, Gallop, Muffled Abdomen: Positive for: Normal Bowel Sounds. Negative for: Tenderness, Distention, Peritoneal Signs Upper Extremity: Positive for: Normal Inspection, Capillary Refill < 2s. Negative for: Cyanosis, Edema Lower Extremity: Positive for: Normal Inspection, NORMAL PULSES, Neurovascularly Intact, Capillary Refill < 2 s. Negative for: Edema, CALF TENDERNESS, Swelling, Erythema, Temperature Abnormalties Neurological: Negative for: GCS=15 (GCS: 9), Speech Normal (unable to evaluate ) Skin: Positive for: Warm, Dry. Negative for: Normal Color (vitiligo?) Psychiatric: Negative for: Alert, Oriented x 3, Normal Insight, Normal Concentration - Medications Active Medications: Active Medications Generic Name Dose Route Start Last Admin Trade Name Freq PRN Reason Stop Dose Admin Aspirin 300 mg 11/15/17 09:00 11/16/17 10:12 Aspirin Supp MS Not Given DAILY [facility] Enoxaparin Sodium 40 mg 11/16/17 09:00 11/16/17 10:12 Lovenox SC Not Given DAILY [facility] Protocol Folic Acid 1 mg/ Sodium 100.2 mls @ 60 mls/hr 11/15/17 09:00 11/16/17 10:06 Chloride IVPB 60 mls/hr DAILY [facility] Administration Sodium Chloride 1,000 mls @ 42 mls/hr 11/16/17 03:48 11/16/17 04:06 Sodium Chloride 0.9% IV 42 mls/hr .[id number] [facility] Administration Lorazepam 1 mg 11/14/17 18:55 11/15/17 14:39 Ativan IVP 1 mg Q6 PRN Administration Agitation Pantoprazole Sodium 40 mg 11/15/17 09:15 11/16/17 08:36 Protonix Inj IVP 40 mg DAILY [facility] Administration Propofol 7 mg 11/16/17 10:41 Diprivan IV 05/09/18 10:42 ONCE ONE Thiamine HCl 100 mg 11/15/17 09:00 11/16/17 08:32 Vitamin B1 Inj IV 100 mg DAILY [facility] Administration - Patient Studies Lab Studies: Lab Studies 11/16/17 11/16/17 11/15/17 Range/Units 04:20 04:20 08:15 WBC 13.3 H (4.8-10.8) K/uL RBC 4.63 (4.40-5.90) Mil/uL Hgb 14.2 (12.0-18.0) g/dL Hct 42.1 (35.0-51.0) % MCV 91.0 (80.0-94.0) fl MCH 30.6 (27.0-31.0) pg MCHC 33.7 (33.0-37.0) g/dL RDW 15.0 H (11.5-14.5) % Plt Count 159 (130-400) K/uL Sodium 137 (132-148) mmol/l Potassium 3.7 (3.6-5.0) MMOL/L Chloride 100 (98-107) mmol/L Carbon Dioxide 21 L (22-30) mmol/L Anion Gap 20 (10-20) BUN 7 L (9-20) mg/dl Creatinine 0.6 L (0.8-1.5) mg/dl Est GFR ( Amer) > 60 Est GFR (Non-Af Amer) > 60 Random Glucose 106 (75-110) mg/dL Hemoglobin A1c (4.2-6.5) % Calcium 8.5 (8.4-10.2) mg/dL 25-OH Vitamin D Total (30.0-100.0) NG/ML RPR Nonreactive (NONREACTIVE) 11/15/17 11/15/17 Range/Units 06:00 06:00 WBC (4.8-10.8) K/uL RBC (4.40-5.90) Mil/uL Hgb (12.0-18.0) g/dL Hct (35.0-51.0) % MCV (80.0-94.0) fl MCH (27.0-31.0) pg MCHC (33.0-37.0) g/dL RDW (11.5-14.5) % Plt Count (130-400) K/uL Sodium (132-148) mmol/l Potassium (3.6-5.0) MMOL/L Chloride (98-107) mmol/L Carbon Dioxide (22-30) mmol/L Anion Gap (10-20) BUN (9-20) mg/dl Creatinine (0.8-1.5) mg/dl Est GFR ( Amer) Est GFR (Non-Af Amer) Random Glucose (75-110) mg/dL Hemoglobin A1c 5.6 (4.2-6.5) % Calcium (8.4-10.2) mg/dL 25-OH Vitamin D Total < 12.8 L (30.0-100.0) NG/ML RPR (NONREACTIVE) Laboratory Results - last 24 hr 11/15/17 11/15/17 11/15/17 06:00 06:00 08:15 WBC RBC Hgb Hct MCV MCH MCHC RDW Plt Count Sodium Potassium Chloride Carbon Dioxide Anion Gap BUN Creatinine Est GFR ( Amer) Est GFR (Non-Af Amer) Random Glucose Hemoglobin A1c 5.6 Calcium 25-OH Vitamin D Total < 12.8 L RPR Nonreactive 11/16/17 11/16/17 04:20 04:20 WBC 13.3 H RBC 4.63 Hgb 14.2 Hct 42.1 MCV 91.0 MCH 30.6 MCHC 33.7 RDW 15.0 H Plt Count 159 Sodium 137 Potassium 3.7 Chloride 100 Carbon Dioxide 21 L Anion Gap 20 BUN 7 L Creatinine 0.6 L Est GFR ( Amer) > 60 Est GFR (Non-Af Amer) > 60 Random Glucose 106 Hemoglobin A1c Calcium 8.5 25-OH Vitamin D Total RPR Fingerstick Blood Sugar Results: 108 Review of Systems - Review of Systems Systems not reviewed;Unavailable: Intubated Critical Care Progress Note - Ventilator Checklist Head of Bed 30 Degrees: Yes PUD Prophalyxis: Yes DVT Prophylaxis: Yes Oral Care with Chlorhexidine Gluconate {CHG}: Yes - Vent Settings MODE:: ASSIST CONTROL TIDAL VOLUME:: 450 RESP RATE:: 18 FIO2:: 60 PEEP:: 5 - Extremities/Vascular Does the Patient have a Central Venous Catheter?: No Does the Patient have a Holloway Catheter?: Yes Does the Patient need a Holloway Catheter?: Yes Catheter Insertion Criteria: Patient requires prolonged immobilization - Restraints Justification for Restraints: High risk for self extubation, High risk for removing IV access, High risk for harming self - Prophylaxis GI Prophylaxis GI: PPI - Prophylaxis DVT Prophylaxis DVT: Lovenox, SCDs - Nutrition Nutrition: Nutrition Category Date Time Status NPO Diet [DIET] Diets 11/15/17 Lunch Active Assessment/Plan - Assessment and Plan (Free Text) Assessment: 63 y/o male, with unobtainable medical history, admitted to hospital for AMS of uncertain etiology, transferred to ICU due to worsening mental status, tachypnea , and desaturation. Plan: 1) Altered Mental Status -unlikely due to Acute CVA as noncontrast head CT negative x 2, with no interval change appreciated -Rule out toxic-metabolic encephalopathy -Rule out Nonconvulsive status epilepticus -rule out POOLROOM TABLE ATTENDANT infection -rule out autoimmune etiology -HIV, Prolactin, ESR/CRP, sputum cultures, Urine cultures, labs pending and re- evaluate -EEG/Brain MRI pending as per Neuro team -all other labs and imaging reviewed, there are no visible or extraordinary findings to currently account for current clinical condition. -c/w with Propofol drip for sedation -wrist splinting 2) Suspect history of ETOH abuse -no elevation in tranasminases -abd u/s pending -currently on Thiamine/Folate IV supplementation -maintenance fluids 3) Elevated Blood Pressure without Diagnosis of HTN -labs reviewed -monitor BPs 4) Leukocytosis -afebrile -CXR clear -f/u urine/sputum cultures -recheck AM labs 5) Prophylaxis -Head of bed elevation @ 30 degrees -Protonix 40mg IVP QD -Lovenox 40mg SC QD -SCDs 6) Code Status: -Full code <[email or web address] Yun - Last Filed: 11/16/17 18:38> CCU Subjective - Physician Review Events Since Last Encounter (Free Text): Attestation: Patient seen and examined at the bedside with Resident Dr. Chastity Garcia; and I agree with his outline of plans and management documented below as discussed on AM rounds reflecting my review of all applicable clinical data, and participation in the care of the patient throughout the day in ICU; today, November.
[2017-11-16 12:02] LABS: SQUAMOUS EPITHIAL 1 /hpf (0-5); URINE AMORPHOUS SEDIMENT RARE /ul (<OCC); URINE BACTERIA RARE (<OCC); URINE BILIRUBIN NEGATIVE (NEGATIVE); URINE BLOOD MODERATE (NEGATIVE); URINE CLARITY SLIGHTY-CLOUDY (Clear); URINE COLOR YELLOW (YELLOW); URINE GLUCOSE (UA) NEG (Normal); URINE LEUKOCYTE ESTERASE NEG Leu/uL (Negative); URINE PROTEIN NEGATIVE (NEGATIVE)
--- NOTE | 2017-11-16 12:02 | CARD ---
APPROVED REPORT EXAM: Two-dimensional and M-mode echocardiogram with Doppler and color Doppler. Other Information Quality : GoodRhythm : NSR INDICATION AMS 2D DIMENSIONS IVSd1.28 (0.7-1.1cm)LVDd3.94 (3.9-5.9cm) LVOT Diameter1.83 (1.8-2.4cm)PWd1.06 (0.7-1.1cm) IVSs1.53 (0.8-1.2cm)LVDs2.36 (2.5-4.0cm) FS (%) 40.1 %PWs1.22 (0.8-1.2cm) M-Mode DIMENSIONS Left Atrium (MM)4.53 (2.5-4.0cm)IVSd0.78 (0.7-1.1cm) Aortic Root2.84 (2.2-3.7cm)LVDd6.06 (4.0-5.6cm) Aortic Cusp Exc.1.91 (1.5-2.0cm)PWd1.22 (0.7-1.1cm) IVSs1.72 cmFS (%) 44 % LVDs3.38 (2.0-3.8cm)PWs1.56 cm Mitral Valve E/A ratio0.0 TDI E/Lateral E'0.0E/Medial E'0.0 Pulmonary Valve PV Peak [id number]/s LEFT VENTRICLE The left ventricle is normal size. There is normal left ventricular wall thickness. Left ventricle systolic function is normal. The LVEF is 65% There is normal LV segmental wall motion. Transmitral Doppler flow pattern is Grade IV-fixed restrictive diastolic dysfunction. No left ventricle thrombus noted on this study. There is no ventricular septal defect visualized. There is no left ventricular aneurysm. There is no mass noted in the left ventricle. RIGHT VENTRICLE The right ventricle is normal size. There is normal right ventricular wall thickness. The right ventricular systolic function is normal. ATRIA The left atrium size is normal. The right atrium size is normal. The interatrial septum is intact with no evidence for an atrial septal defect. AORTIC VALVE The aortic valve is normal in structure. No aortic regurgitation is present. There is no aortic valvular stenosis. There is no aortic valvular vegetation. MITRAL VALVE The mitral valve is normal in structure. There is no evidence of mitral valve prolapse. There is no mitral valve stenosis. There is no mitral valve regurgitation noted. TRICUSPID VALVE The tricuspid valve is normal in structure. There is no tricuspid valve regurgitation noted. There is no tricuspid valve prolapse or vegetation. There is no tricuspid valve stenosis. PULMONIC VALVE The pulmonary valve is normal in structure. There is no pulmonic valvular regurgitation. There is no pulmonic valvular stenosis. GREAT VESSELS The aortic root is normal in size. The ascending aorta is normal in size. The IVC is normal in size and collapses >50% with inspiration. PERICARDIAL EFFUSION The pericardium appears normal. There is no pleural effusion. <Conclusion> Essentially Normal Echocardiogram
--- NOTE | 2017-11-16 12:37 | CP.PCM.PN ---
Subjective - Date & Time of Evaluation Date of Evaluation: 11/16/17 Time of Evaluation: 12:32 - Subjective Subjective: Mr. White was seen and examined at the bedside in ICU. He is on mechanical ventilator on PRVC mode. He is currently receiving propofol drip for sedation, but remains with episode of restlessness. He is on bilateral wrist restraints for patient safety.His pupils remains brisk reactive to light accommodation, + corneal reflex, + gag reflex, and withdraws to pain stimuli. He had an incident this morning such as facial grimaces noted to painful stimuli only, otherwise not responding. extremities stiff.B/P 187/95 [address]resp rapid 24 per min.Pulse oximeter 91% on room air. 0830 pt congested and suctioned orally large amount of thick yellow secretions. HOB elevated.Dr Calderon aware. repeat b/p 127/81. HR [address] pt placed on o2 2 ln/c. pulse oximeter spot check 94%. This prompted the primary team to transfer the patient to ICU for higher level of care. CT scan of the head showed stable age-related neuro- degenerative changes without definite acute intracranial disease. Central atrophy or a communicating hydrocephalus related diffuse ventricular dilation is again demonstrated. Objective - Vital Signs/Intake and Output Vital Signs (last 24 hours): Temp Pulse Resp BP Pulse Ox 98.8 F 116 H 24 136/91 H 98 11/16/17 11:25 11/16/17 11:25 11/16/17 11:25 11/16/17 11:25 11/16/17 11:25 Intake and Output: 11/16/17 11/16/17 06:59 18:59 Intake Total 226 Balance 226 - Medications Medications: Current Medications Aspirin (Aspirin Supp) 300 mg [place] DAILY [facility] Last Admin: 11/16/17 10:12 Dose: Not Given Enoxaparin Sodium (Lovenox) 40 mg SC DAILY [facility] PRN Reason: Protocol Last Admin: 11/16/17 10:12 Dose: Not Given Folic Acid 1 mg/ Sodium (Chloride) 100.2 mls @ 60 mls/hr IVPB DAILY [facility] Last Admin: 11/16/17 10:06 Dose: 60 mls/hr Sodium Chloride (Sodium Chloride 0.9%) 1,000 mls @ 42 mls/hr IV .[id number] [facility] Last Admin: 11/16/17 04:06 Dose: 42 mls/hr Lorazepam (Ativan) 1 mg IVP Q6 PRN PRN Reason: Agitation Last Admin: 11/15/17 14:39 Dose: 1 mg Pantoprazole Sodium (Protonix Inj) 40 mg IVP DAILY [facility] Last Admin: 11/16/17 08:36 Dose: 40 mg Thiamine HCl (Vitamin B1 Inj) 100 mg IV DAILY [facility] Last Admin: 11/16/17 08:32 Dose: 100 mg - Labs Labs: 11/16/17 04:20 11/16/17 04:20 PT 11.6 Seconds (9.8-13.1) 11/15/17 08:15 INR 1.0 (0.9-1.2) 11/15/17 08:15 APTT 29.7 Seconds (25.6-37.1) 11/15/17 08:15 - Constitutional Appears: No Acute Distress - Head Exam Head Exam: NORMAL INSPECTION - Eye Exam Pupil Exam: Miosis, PERRL Additional comments: bilateral eyes are 3mm in size. - Neurological Exam Neuro motor strength exam: Left Upper Extremity: 3, Right Upper Extremity: 3, Left Lower Extremity: 4, Right Lower Extremity: 4 Additional comments: His pupils remains brisk reactive to light accommodation, + corneal reflex, + gag reflex, and withdraws to pain stimuli. He is able to move all extremities spontaneously. Assessment and Plan (1) Acute metabolic encephalopathy Assessment & Plan: Case discussed with Dr. Mcneill, continue all current medical regimens. Recommend MRI of the brain and EEG to evaluate any brain pathology. Status: Acute
--- NOTE | 2017-11-16 13:41 | RAD ---
HISTORY: post-intubation COMPARISON: Chest radiograph performed approximately 6.5 hours prior. FINDINGS: LUNGS: No active pulmonary disease. PLEURA: No significant pleural effusion identified, no pneumothorax apparent. CARDIOVASCULAR: Atherosclerotic aortic calcifications. Cardiomediastinal silhouette unchanged. OSSEOUS STRUCTURES: Unchanged. VISUALIZED UPPER ABDOMEN: Normal. OTHER FINDINGS: Endotracheal tube with tip at the level of the clavicular head. IMPRESSION: Interval placement of endotracheal tube in satisfactory position.
--- NOTE | 2017-11-16 14:25 | PCM.PROC ---
Procedures Attestation:: I certify that I have explained the specified Operation(s) or Procedure(s), risks, benefits and reasonable alternatives to the Patient and/or other person responsible. The opportunity was given to ask questions and all questions answered - Intubation Time Out Performed: Yes (10:50am ) Sedative: Other (Propofol 70mg ) Mg Given: 70mg Laryngoscope: Flex ET Tube Size: 8.0 ET Tube Uncuffed: No ET Tube Secured at Depth: 23cm at the gums ET Tube Secured Locarion: Lips ET Tube Placement Confirmation: Visualized Passing Through Cords, Breath Sounds Equal Bilaterally, No Breath Sounds Over Epigastrum, Confirmation w/Capnometry Patient Tolerated Procedure: Well Procedure Immediate Complications: None Additional comments: ETCO2 color change confirmed upon CXR done, ET tube with proper placement, above yan
[2017-11-16] MEDS: Sodium Chloride 0.9% 1,000 ML IV SCH (14:29)
[2017-11-16 20:38] LABS: PROLACTIN 7.6 ng/mL (3.7-17.9)
[2017-11-16] MEDS ORDERED: Piperacillin/Tazobact 3.375 GM in Sodium Chloride 0.9% 100 ML IVPB SCH (21:00)
[2017-11-17 04:29] LABS: ABG ALLEN TEST YES; ARTERIAL BLOOD GAS HCO3 24.3 mmol/L (21-28); ARTERIAL BLOOD GAS O2 SAT 99.1 % (95-98); ARTERIAL BLOOD GAS PCO2 37 mm/Hg (35-45); ARTERIAL BLOOD GAS PH 7.41 (7.35-7.45); ARTERIAL BLOOD GAS PO2 124 mm/Hg (80-100); ARTERIAL BLOOD GAS TCO2 24.6 mmol/L (22-28)
[2017-11-17 06:02] LABS: HEMOGLOBIN 13.6 g/dL (12.0-18.0); MEAN CELL VOLUME 91.9 fl (80.0-94.0); MEAN CORPUSCULAR HEMOGLOBIN 30.6 pg (27.0-31.0); MEAN CORPUSCULAR HGB CONC 33.3 g/dL (33.0-37.0); RBC 4.46 Mil/uL (4.40-5.90); RED CELL DISTRIBUTION WIDTH 14.8 % (11.5-14.5); WHITE BLOOD COUNT 22.4 K/uL (4.8-10.8)
[2017-11-17] MEDS: Sodium Chloride 0.9% 1,000 ML IV SCH (06:33)
[2017-11-17 06:35] LABS: ALB/GLOB RATIO 0.9 (1.0-2.1); ALBUMIN 3.3 g/dL (3.5-5.0); ALT/SGPT 23 U/L (21-72); AST/SGOT 34 U/L (17-59); BLOOD UREA NITROGEN 17 mg/dl (9-20); CALCIUM 8.5 mg/dL (8.4-10.2); GFR AFRICAN-AMERICAN > 60; GFR NON-AFRICAN AMERICAN > 60
[2017-11-17] MEDS ORDERED: Potassium Chloride 20 mEq/15 ml LIQ UD GT ONE ×2 (06:51→11:00)
[2017-11-17] MEDS: Morphine 4 MG/ML VIAL IVP PRN (07:35)
--- NOTE | 2017-11-17 09:11 | US ---
HISTORY: rule out liver pathology COMPARISON: None. TECHNIQUE: Sonographic evaluation of the abdomen. FINDINGS: LIVER: Measures 13.7 cm. Normal echogenicity of the liver parenchyma. No mass. No intrahepatic bile duct dilatation. GALLBLADDER: Unremarkable. No gallstones. COMMON BILE DUCT: Measures 3 mm. No stones. No dilatation. PANCREAS: Not well-visualized. RIGHT KIDNEY: Measures 10.2 x 4.3 x 4.8cm. Normal echogenicity. No calculus, mass, or hydronephrosis. LEFT KIDNEY: Measures 11.3 x 6.3 x 4.4cm. Normal echogenicity. No calculus, mass, or hydronephrosis. SPLEEN: Normal in size and contour. No mass. AORTA: No aneurysmal dilatation. IVC: Unremarkable. OTHER FINDINGS: None. IMPRESSION: Limited evaluation of the pancreas. Otherwise, unremarkable abdominal sonogram.
[2017-11-17] MEDS: Enoxaparin 40 mg Syringe SC SCH (09:41)
--- NOTE | 2017-11-17 09:45 | RAD ---
HISTORY: intubated COMPARISON: Chest radiograph dated 11/16/2017. FINDINGS: LUNGS: No active pulmonary disease. PLEURA: No significant pleural effusion identified, no pneumothorax apparent. CARDIOVASCULAR: Atherosclerotic aortic calcifications. Cardiomediastinal silhouette unchanged. OSSEOUS STRUCTURES: Unchanged. VISUALIZED UPPER ABDOMEN: Normal. OTHER FINDINGS: New enteric tube with tip in the stomach. Endotracheal tube, unchanged. Gaseous distention of bowel. IMPRESSION: Interval placement of enteric tube in satisfactory position.
--- NOTE | 2017-11-17 10:09 | CP.CCUPN ---
<WilliamstephanMich - Last Filed: 11/17/17 16:14> CCU Subjective - Physician Review Subjective (Free Text): pt seen and examined at bedside. No acute events overnight. Fever of 103.0 F. Repeat blood cultures drawn. Afebrile this morning. Vitals stable this morning. On Vent. Unresponsive to painful stimuli. Intermittent decerebrate movements. CCU Objective - Vital Signs / Intake & Output Vital Signs (Last 4 hours): Vital Signs Temp Pulse Resp BP Pulse Ox 11/17/17 08:11 98.8 F 105 H 23 158/85 H 99 11/17/17 07:45 104 H 21 158/85 H 99 11/17/17 07:00 98.6 F 106 H 23 148/90 99 Intake and Output (Last 8hrs): Intake & Output 11/16/17 11/17/17 11/17/17 22:59 06:59 14:59 Intake Total 1315 170 Output Total 200 Balance 1115 170 Intake: IV 1065 170 Intake, Piggyback 250 Output: Urine 200 2-way Urethral 200 - Physical Exam Physical Exam Limitations: Positive for: Altered Mental Status Head: Positive for: Atraumatic, Normocephalic. Negative for: Ecchymosis, Abrasion, Laceration Pupils: Positive for: Pinpoint Extroacular Muscles: Negative for: EOMI, Gaze Palsy Conjunctiva: Positive for: Normal. Negative for: Injected, Icteric Mouth: Positive for: Dry. Negative for: Normal Teeth (missing dentition ) Pharnyx: Positive for: Normal. Negative for: ERYTHEMA, EXUDATE, TONSILS ENLARGED Neck: Positive for: Normal Range of Motion, Trachea Midline. Negative for: Meningeal Signs, JVD, Lymphadenopathy Respiratory/Chest: Positive for: Clear to Auscultation, Respiratory Distress, Accessory Muscle Use, Tachypneic. Negative for: Decreased Breath Sounds, Rales , Retracting, Rhonchi, Tender to Palpation Cardiovascular: Positive for: Normal S1, S2, Peripheal Pulses Present, Tachycardic. Negative for: Regular Rate and Rhythm, Murmurs, Irregular Rhythm, Rub, Gallop, Muffled Abdomen: Positive for: Normal Bowel Sounds. Negative for: Tenderness, Distention, Peritoneal Signs Upper Extremity: Positive for: Normal Inspection, Capillary Refill < 2s. Negative for: Cyanosis, Edema Lower Extremity: Positive for: Normal Inspection, NORMAL PULSES, Neurovascularly Intact, Capillary Refill < 2 s. Negative for: Edema, CALF TENDERNESS, Swelling, Erythema, Temperature Abnormalties Neurological: Positive for: Other (intermittent decerebrate posturing ). Negative for: GCS=15 (GCS: 9), CN II-XII Intact, Speech Normal (unable to evaluate ), Normal Sensory Function, Normal Cerebellar Funct, Norm Deep Tendon Reflexes (asymmetric rigidity with brisk reflexes ) Skin: Positive for: Warm, Dry. Negative for: Normal Color (vitiligo?, chronic skin changes from weather exposure and recurrent friction/trauma ), Laceration Lymphatic: Negative for: Cervical Adenopathy Psychiatric: Negative for: Alert, Oriented x 3, Normal Insight, Normal Concentration - Medications Active Medications: Active Medications Generic Name Dose Route Start Last Admin Trade Name Freq PRN Reason Stop Dose Admin Acetaminophen 650 mg 11/16/17 23:44 11/16/17 23:58 Tylenol 650 Mg Supp W[place] 650 mg Q6 PRN Administration Fever >100.4 F Aspirin 300 mg 11/15/17 09:00 11/16/17 10:12 Aspirin Supp W[place] Not Given DAILY ZIA Enoxaparin Sodium 40 mg 11/16/17 09:00 11/17/17 09:41 Lovenox SC 40 mg DAILY ZIA Administration Protocol Folic Acid 1 mg 11/17/17 09:00 Folic Acid GT DAILY ZIA Sodium Chloride 1,000 mls @ 85 mls/hr 11/16/17 14:15 11/17/17 06:33 Sodium Chloride 0.9% IV 11/18/17 14:15 85 mls/hr .[id number] ZIA Administration Vancomycin HCl 1 gm/ Sodium 250 mls @ 166.667 mls/hr 11/16/17 15:30 11/17/17 09:40 Chloride IVPB 166.667 mls/hr DAILY ZIA Administration Protocol Piperacillin Sod/Tazobactam 100 mls @ 100 mls/hr 11/16/17 21:00 Sod 3.375 gm/ Sodium Chloride IVPB Q12 ZIA Protocol Lorazepam 1 mg 11/14/17 18:55 11/15/17 14:39 Ativan IVP 1 mg Q6 PRN Administration Agitation Lorazepam 1 mg 11/16/17 15:30 11/17/17 01:01 Ativan IVP 1 mg PRN ZIA Administration Morphine Sulfate 4 mg 11/16/17 15:28 11/17/17 07:35 Morphine IVP 4 mg Q4 PRN Administration Pain, moderate (4-7) Pantoprazole Sodium 40 mg 11/15/17 09:15 11/16/17 08:36 Protonix Inj IVP 40 mg DAILY ZIA Administration Potassium Chloride 20 meq 11/17/17 11:00 Potassium Chloride Oral Soln GT 11/17/17 11:01 ONCE ONE Thiamine HCl 100 mg 11/17/17 09:00 Vitamin B1 Tab GT DAILY ZIA - Patient Studies Lab Studies: Microbiology Studies 11/16/17 11:40 Gram Stain - Final Sputum Lab Studies 11/17/17 11/17/17 11/17/17 Range/Units 04:30 04:30 04:00 WBC 22.4 H D (4.8-10.8) K/uL RBC 4.46 (4.40-5.90) Mil/uL Hgb 13.6 (12.0-18.0) g/dL Hct 41.0 (35.0-51.0) % MCV 91.9 (80.0-94.0) fl MCH 30.6 (27.0-31.0) pg MCHC 33.3 (33.0-37.0) g/dL RDW 14.8 H (11.5-14.5) % Plt Count 136 (130-400) K/uL ESR (0-20) mm/hr pCO2 37 (35-45) mm/Hg pO2 124 H (80-100) mm/Hg HCO3 24.3 (21-28) mmol/L ABG pH 7.41 (7.35-7.45) ABG Total CO2 24.6 (22-28) mmol/L ABG O2 Saturation 99.1 H (95-98) % ABG Base Excess -0.8 (-2.0-3.0) mmol/L Roberto Test Yes ABG Potassium 2.9 L (3.6-5.2) mmol/L A-a O2 Difference 258.0 mm/Hg Sodium 141 135.0 (132-148) mmol/L Chloride 103 107.0 (98-107) mmol/L Glucose 90 (75-110) mg/dL Lactate 1.2 (0.7-2.1) mmol/L Vent Mode A/c Mechanical Rate 16 FiO2 60.0 % Tidal Volume 450 PEEP 5 Potassium 3.2 L (3.6-5.0) MMOL/L Carbon Dioxide 23 (22-30) mmol/L Anion Gap 18 (10-20) BUN 17 (9-20) mg/dl Creatinine 0.9 (0.8-1.5) mg/dl Est GFR ( Amer) > 60 Est GFR (Non-Af Amer) > 60 Random Glucose 83 (75-110) mg/dL Lactic Acid (0.7-2.1) MMOL/L Calcium 8.5 (8.4-10.2) mg/dL Total Bilirubin 1.9 H (0.2-1.3) mg/dl AST 34 (17-59) U/L ALT 23 (21-72) U/L Alkaline Phosphatase 52 (38-126) U/L Ammonia (16-60) umo/L C-Reactive Protein (0.0-9.9) mg/L Total Protein 7.0 (6.3-8.2) G/DL Albumin 3.3 L (3.5-5.0) g/dL Globulin 3.7 (2.2-3.9) gm/dL Albumin/Globulin Ratio 0.9 L (1.0-2.1) Procalcitonin (0.19-0.49) NG/ML Prolactin (3.7-17.9) ng/mL Arterial Blood Potassium 2.9 L (3.6-5.2) mmol/L Urine Color (YELLOW) Urine Clarity (Clear) Urine pH (5.0-8.0) Ur Specific [place] (1.003-1.030) Urine Protein (NEGATIVE) mg/dL Urine Glucose (UA) (Normal) mg/dL Urine Ketones (NEGATIVE) mg/dL Urine Blood (NEGATIVE) Urine Nitrate (NEGATIVE) Urine Bilirubin (NEGATIVE) Urine Urobilinogen (0.2-1.0) mg/dL Ur Leukocyte Esterase (Negative) Kallie/uL Urine RBC (Auto) (0-3) /hpf Urine Microscopic WBC (0-5) /hpf Ur Squamous Epith Cells (0-5) /hpf Amorphous Sediment (<OCC) /ul Urine Bacteria (<OCC) HIV 1&2 Ag/Ab, 4th Gen (Nonreactive) 11/16/17 11/16/17 11/16/17 Range/Units 13:54 12:40 12:40 WBC (4.8-10.8) K/uL RBC (4.40-5.90) Mil/uL Hgb (12.0-18.0) g/dL Hct (35.0-51.0) % MCV (80.0-94.0) fl MCH (27.0-31.0) pg MCHC (33.0-37.0) g/dL RDW (11.5-14.5) % Plt Count (130-400) K/uL ESR 19 (0-20) mm/hr pCO2 (35-45) mm/Hg pO2 (80-100) mm/Hg HCO3 (21-28) mmol/L ABG pH (7.35-7.45) ABG Total CO2 (22-28) mmol/L ABG O2 Saturation (95-98) % ABG Base Excess (-2.0-3.0) mmol/L Roberto Test ABG Potassium (3.6-5.2) mmol/L A-a O2 Difference mm/Hg Sodium (132-148) mmol/L Chloride (98-107) mmol/L Glucose (75-110) mg/dL Lactate (0.7-2.1) mmol/L Vent Mode Mechanical Rate FiO2 % Tidal Volume PEEP Potassium (3.6-5.0) MMOL/L Carbon Dioxide (22-30) mmol/L Anion Gap (10-20) BUN (9-20) mg/dl Creatinine (0.8-1.5) mg/dl Est GFR ( Amer) Est GFR (Non-Af Amer) Random Glucose (75-110) mg/dL Lactic Acid (0.7-2.1) MMOL/L Calcium (8.4-10.2) mg/dL Total Bilirubin (0.2-1.3) mg/dl AST (17-59) U/L ALT (21-72) U/L Alkaline Phosphatase (38-126) U/L Ammonia (16-60) umo/L C-Reactive Protein (0.0-9.9) mg/L Total Protein (6.3-8.2) G/DL Albumin (3.5-5.0) g/dL Globulin (2.2-3.9) gm/dL Albumin/Globulin Ratio (1.0-2.1) Procalcitonin 0.08 L (0.19-0.49) NG/ML Prolactin (3.7-17.9) ng/mL Arterial Blood Potassium (3.6-5.2) mmol/L Urine Color (YELLOW) Urine Clarity (Clear) Urine pH (5.0-8.0) Ur Specific [place] (1.003-1.030) Urine Protein (NEGATIVE) mg/dL Urine Glucose (UA) (Normal) mg/dL Urine Ketones (NEGATIVE) mg/dL Urine Blood (NEGATIVE) Urine Nitrate (NEGATIVE) Urine Bilirubin (NEGATIVE) Urine Urobilinogen (0.2-1.0) mg/dL Ur Leukocyte Esterase (Negative) Kallie/uL Urine RBC (Auto) (0-3) /hpf Urine Microscopic WBC (0-5) /hpf Ur Squamous Epith Cells (0-5) /hpf Amorphous Sediment (<OCC) /ul Urine Bacteria (<OCC) HIV 1&2 Ag/Ab, 4th Gen Nonreactive (Nonreactive) 11/16/17 11/16/17 11/16/17 Range/Units 12:40 12:40 12:40 WBC (4.8-10.8) K/uL RBC (4.40-5.90) Mil/uL Hgb (12.0-18.0) g/dL Hct (35.0-51.0) % MCV (80.0-94.0) fl MCH (27.0-31.0) pg MCHC (33.0-37.0) g/dL RDW (11.5-14.5) % Plt Count (130-400) K/uL ESR (0-20) mm/hr pCO2 (35-45) mm/Hg pO2 (80-100) mm/Hg HCO3 (21-28) mmol/L ABG pH (7.35-7.45) ABG Total CO2 (22-28) mmol/L ABG O2 Saturation (95-98) % ABG Base Excess (-2.0-3.0) mmol/L Roberto Test ABG Potassium (3.6-5.2) mmol/L A-a O2 Difference mm/Hg Sodium (132-148) mmol/L Chloride (98-107) mmol/L Glucose (75-110) mg/dL Lactate (0.7-2.1) mmol/L Vent Mode Mechanical Rate FiO2 % Tidal Volume PEEP Potassium (3.6-5.0) MMOL/L Carbon Dioxide (22-30) mmol/L Anion Gap (10-20) BUN (9-20) mg/dl Creatinine (0.8-1.5) mg/dl Est GFR ( Amer) Est GFR (Non-Af Amer) Random Glucose (75-110) mg/dL Lactic Acid 1.8 (0.7-2.1) MMOL/L Calcium (8.4-10.2) mg/dL Total Bilirubin (0.2-1.3) mg/dl AST (17-59) U/L ALT (21-72) U/L Alkaline Phosphatase (38-126) U/L Ammonia 13 L D (16-60) umo/L C-Reactive Protein 74.50 H (0.0-9.9) mg/L Total Protein (6.3-8.2) G/DL Albumin (3.5-5.0) g/dL Globulin (2.2-3.9) gm/dL Albumin/Globulin Ratio (1.0-2.1) Procalcitonin (0.19-0.49) NG/ML Prolactin 7.6 (3.7-17.9) ng/mL Arterial Blood Potassium (3.6-5.2) mmol/L Urine Color (YELLOW) Urine Clarity (Clear) Urine pH (5.0-8.0) Ur Specific [place] (1.003-1.030) Urine Protein (NEGATIVE) mg/dL Urine Glucose (UA) (Normal) mg/dL Urine Ketones (NEGATIVE) mg/dL Urine Blood (NEGATIVE) Urine Nitrate (NEGATIVE) Urine Bilirubin (NEGATIVE) Urine Urobilinogen (0.2-1.0) mg/dL Ur Leukocyte Esterase (Negative) Kallie/uL Urine RBC (Auto) (0-3) /hpf Urine Microscopic WBC (0-5) /hpf Ur Squamous Epith Cells (0-5) /hpf Amorphous Sediment (<OCC) /ul Urine Bacteria (<OCC) HIV 1&2 Ag/Ab, 4th Gen (Nonreactive) 11/16/17 Range/Units 11:40 WBC (4.8-10.8) K/uL RBC (4.40-5.90) Mil/uL Hgb (12.0-18.0) g/dL Hct (35.0-51.0) % MCV (80.0-94.0) fl MCH (27.0-31.0) pg MCHC (33.0-37.0) g/dL RDW (11.5-14.5) % Plt Count (130-400) K/uL ESR (0-20) mm/hr pCO2 (35-45) mm/Hg pO2 (80-100) mm/Hg HCO3 (21-28) mmol/L ABG pH (7.35-7.45) ABG Total CO2 (22-28) mmol/L ABG O2 Saturation (95-98) % ABG Base Excess (-2.0-3.0) mmol/L Roberto Test ABG Potassium (3.6-5.2) mmol/L A-a O2 Difference mm/Hg Sodium (132-148) mmol/L Chloride (98-107) mmol/L Glucose (75-110) mg/dL Lactate (0.7-2.1) mmol/L Vent Mode Mechanical Rate FiO2 % Tidal Volume PEEP Potassium (3.6-5.0) MMOL/L Carbon Dioxide (22-30) mmol/L Anion Gap (10-20) BUN (9-20) mg/dl Creatinine (0.8-1.5) mg/dl Est GFR ( Amer) Est GFR (Non-Af Amer) Random Glucose (75-110) mg/dL Lactic Acid (0.7-2.1) MMOL/L Calcium (8.4-10.2) mg/dL Total Bilirubin (0.2-1.3) mg/dl AST (17-59) U/L ALT (21-72) U/L Alkaline Phosphatase (38-126) U/L Ammonia (16-60) umo/L C-Reactive Protein (0.0-9.9) mg/L Total Protein (6.3-8.2) G/DL Albumin (3.5-5.0) g/dL Globulin (2.2-3.9) gm/dL Albumin/Globulin Ratio (1.0-2.1) Procalcitonin (0.19-0.49) NG/ML Prolactin (3.7-17.9) ng/mL Arterial Blood Potassium (3.6-5.2) mmol/L Urine Color Yellow (YELLOW) Urine Clarity Slighty-cloudy (Clear) Urine pH 6.0 (5.0-8.0) Ur Specific [place] 1.016 (1.003-1.030) Urine Protein Negative (NEGATIVE) mg/dL Urine Glucose (UA) Neg (Normal) mg/dL Urine Ketones 20 (NEGATIVE) mg/dL Urine Blood Moderate (NEGATIVE) Urine Nitrate Negative (NEGATIVE) Urine Bilirubin Negative (NEGATIVE) Urine Urobilinogen 2.0 (0.2-1.0) mg/dL Ur Leukocyte Esterase Neg (Negative) Kallie/uL Urine RBC (Auto) 18 H (0-3) /hpf Urine Microscopic WBC 2 (0-5) /hpf Ur Squamous Epith Cells 1 (0-5) /hpf Amorphous Sediment Rare H (<OCC) /ul Urine Bacteria Rare (<OCC) HIV 1&2 Ag/Ab, 4th Gen (Nonreactive) Laboratory Results - last 24 hr 11/16/17 11/16/17 11/16/17 11:40 12:40 12:40 WBC RBC Hgb Hct MCV MCH MCHC RDW Plt Count ESR pCO2 pO2 HCO3 ABG pH ABG Total CO2 ABG O2 Saturation ABG Base Excess Roberto Test ABG Potassium A-a O2 Difference Sodium Chloride Glucose Lactate Vent Mode Mechanical Rate FiO2 Tidal Volume PEEP Potassium Carbon Dioxide Anion Gap BUN Creatinine Est GFR ( Amer) Est GFR (Non-Af Amer) Random Glucose Lactic Acid Calcium Total Bilirubin AST ALT Alkaline Phosphatase Ammonia 13 L D C-Reactive Protein 74.50 H Total Protein Albumin Globulin Albumin/Globulin Ratio Procalcitonin Prolactin 7.6 Arterial Blood Potassium Urine Color Yellow Urine Clarity Slighty-cloudy Urine pH 6.0 Ur Specific [place] 1.016 Urine Protein Negative Urine Glucose (UA) Neg Urine Ketones 20 Urine Blood Moderate Urine Nitrate Negative Urine Bilirubin Negative Urine Urobilinogen 2.0 Ur Leukocyte Esterase Neg Urine RBC (Auto) 18 H Urine Microscopic WBC 2 Ur Squamous Epith Cells 1 Amorphous Sediment Rare H Urine Bacteria Rare HIV 1&2 Ag/Ab, 4th Gen 11/16/17 11/16/17 11/16/17 12:40 12:40 12:40 WBC RBC Hgb Hct MCV MCH MCHC RDW Plt Count ESR 19 pCO2 pO2 HCO3 ABG pH ABG Total CO2 ABG O2 Saturation ABG Base Excess Roberto Test ABG Potassium A-a O2 Difference Sodium Chloride Glucose Lactate Vent Mode Mechanical Rate FiO2 Tidal Volume PEEP Potassium Carbon Dioxide Anion Gap BUN Creatinine Est GFR ( Amer) Est GFR (Non-Af Amer) Random Glucose Lactic Acid 1.8 Calcium Total Bilirubin AST ALT Alkaline Phosphatase Ammonia C-Reactive Protein Total Protein Albumin Globulin Albumin/Globulin Ratio Procalcitonin Prolactin Arterial Blood Potassium Urine Color Urine Clarity Urine pH Ur Specific [place] Urine Protein Urine Glucose (UA) Urine Ketones Urine Blood Urine Nitrate Urine Bilirubin Urine Urobilinogen Ur Leukocyte Esterase Urine RBC (Auto) Urine Microscopic WBC Ur Squamous Epith Cells Amorphous Sediment Urine Bacteria HIV 1&2 Ag/Ab, 4th Gen Nonreactive 11/16/17 11/17/17 11/17/17 13:54 04:00 04:30 WBC 22.4 H D RBC 4.46 Hgb 13.6 Hct 41.0 MCV 91.9 MCH 30.6 MCHC 33.3 RDW 14.8 H Plt Count 136 ESR pCO2 37 pO2 124 H HCO3 24.3 ABG pH 7.41 ABG Total CO2 24.6 ABG O2 Saturation 99.1 H ABG Base Excess -0.8 Roberto Test Yes ABG Potassium 2.9 L A-a O2 Difference 258.0 Sodium 135.0 Chloride 107.0 Glucose 90 Lactate 1.2 Vent Mode A/c Mechanical Rate 16 FiO2 60.0 Tidal Volume 450 PEEP 5 Potassium Carbon Dioxide Anion Gap BUN Creatinine Est GFR ( Amer) Est GFR (Non-Af Amer) Random Glucose Lactic Acid Calcium Total Bilirubin AST ALT Alkaline Phosphatase Ammonia C-Reactive Protein Total Protein Albumin Globulin Albumin/Globulin Ratio Procalcitonin 0.08 L Prolactin Arterial Blood Potassium 2.9 L Urine Color Urine Clarity Urine pH Ur Specific [place] Urine Protein Urine Glucose (UA) Urine Ketones Urine Blood Urine Nitrate Urine Bilirubin Urine Urobilinogen Ur Leukocyte Esterase Urine RBC (Auto) Urine Microscopic WBC Ur Squamous Epith Cells Amorphous Sediment Urine Bacteria HIV 1&2 Ag/Ab, 4th Gen 11/17/17 04:30 WBC RBC Hgb Hct MCV MCH MCHC RDW Plt Count ESR pCO2 pO2 HCO3 ABG pH ABG Total CO2 ABG O2 Saturation ABG Base Excess Roberto Test ABG Potassium A-a O2 Difference Sodium 141 Chloride 103 Glucose Lactate Vent Mode Mechanical Rate FiO2 Tidal Volume PEEP Potassium 3.2 L Carbon Dioxide 23 Anion Gap 18 BUN 17 Creatinine 0.9 Est GFR ( Amer) > 60 Est GFR (Non-Af Amer) > 60 Random Glucose 83 Lactic Acid Calcium 8.5 Total Bilirubin 1.9 H AST 34 ALT 23 Alkaline Phosphatase 52 Ammonia C-Reactive Protein Total Protein 7.0 Albumin 3.3 L Globulin 3.7 Albumin/Globulin Ratio 0.9 L Procalcitonin Prolactin Arterial Blood Potassium Urine Color Urine Clarity Urine pH Ur Specific [place] Urine Protein Urine Glucose (UA) Urine Ketones Urine Blood Urine Nitrate Urine Bilirubin Urine Urobilinogen Ur Leukocyte Esterase Urine RBC (Auto) Urine Microscopic WBC Ur Squamous Epith Cells Amorphous Sediment Urine Bacteria HIV 1&2 Ag/Ab, 4th Gen Fingerstick Blood Sugar Results: 108 Review of Systems - Review of Systems Systems not reviewed;Unavailable: Intubated Critical Care Progress Note - Ventilator Checklist Head of Bed 30 Degrees: Yes PUD Prophalyxis: Yes (PPI) DVT Prophylaxis: Yes (Lovenox ) - Vent Settings MODE:: ASSIST CONTROL TIDAL VOLUME:: 450 RESP RATE:: 18 FIO2:: 60 PEEP:: 5 - Extremities/Vascular Does the Patient have a Central Venous Catheter?: No Does the Patient have a Holloway Catheter?: Yes Does the Patient need a Holloway Catheter?: Yes Catheter Insertion Criteria: Need for accurate measurement of output in critically ill patient - Restraints Justification for Restraints: High risk for self extubation, High risk for harming self - Prophylaxis GI Prophylaxis GI: PPI - Prophylaxis DVT Prophylaxis DVT: Lovenox - Nutrition Nutrition: Nutrition Category Date Time Status NPO Diet [DIET] Diets 11/15/17 Lunch Active Assessment/Plan - Assessment and Plan (Free Text) Assessment: 63 y/o male, with unobtainable medical history, admitted to hospital for AMS of uncertain etiology, transferred to ICU due to worsening mental status, tachypnea , and desaturation, 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 Plan: 1) Altered Mental Status/Acute Pontine infarct with extension to midbrain -EEG-pending -brain MRI: acute pontine infaract with extension to midbrain. Smaller cerebellar infarcts b/l -Intubated, Ativan/Morphine PRN -Prolactin/HIV/Procalcitonin: WNL -CRP elevated -HSV pending -c/w respiratory support -repeat ABG in AM -aspirin -awaiting neurology recommendations 2) Hypokalemia -3.2 -replete K+ via OGT -repeat AM labs 3) Leukocytosis -22.4 today -103.0 F fever overnight -currently Vanco/Zosyn -repeat cultures pending -CXR clear -f/u urine/sputum cultures -f/u CBC 4) Suspect history of ETOH abuse -no elevation in tranasminases -abd u/s: -currently on Thiamine/Folate IV supplementation -maintenance fluids, NS @ 85 mls/hr 5) Elevated Blood Pressure without Diagnosis of HTN -labs reviewed -normalized BP today -monitor BPs 6) Prophylaxis -Head of bed elevation @ 30 degrees -Protonix 40mg IVP QD -Lovenox 40mg SC QD -SCDs 7) Code Status: -Full code <[email or web address] Mary Beth - Last Filed: 11/17/17 22:29> CCU Subjective - Physician Review Subjective (Free Text): Attestation: Patient seen and examined at the bedside with Resident Dr. Chastity Garcia; and I agree with his outline of plans and management documented below as discussed on AM rounds reflecting my review of all applicable clinical data, and participation in the care of the patient throughout the day in ICU; today, November 17, 2017.
--- NOTE | 2017-11-17 14:59 | CP.PCM.PN ---
Subjective - Date & Time of Evaluation Date of Evaluation: 11/17/17 Time of Evaluation: 08:30 - Subjective Subjective: Patient seen and evaluated bedside in ICU. intubated on MV PRVC /AC mode 16/450/ 5/40 %, not sedated , unresponsive. With pinpoint pupils bilaterally and no cornea reflex. Decerebrated movemnets of bilateral upper extremities noted with brisk reflexes to lower extremities Hemodynamically stable, breathing over the vent BP 158/86 HR 105 Tmax 103 last 12 hours RR 23 ABG 37/124/24/7.4 WBc trending up to 22 K Procalcitonin 0.08 K [address] Objective - Vital Signs/Intake and Output Vital Signs (last 24 hours): Temp Pulse Resp BP Pulse Ox 98.9 F 73 21 112/74 99 11/17/17 14:00 11/17/17 13:00 11/17/17 12:00 11/17/17 13:00 11/17/17 12:00 Intake and Output: 11/17/17 11/17/17 06:59 18:59 Intake Total 170 Balance 170 - Medications Medications: Current Medications Acetaminophen (Tylenol 650 Mg Supp) 650 mg [place] Q6 PRN PRN Reason: Fever >100.4 F Last Admin: 11/16/17 23:58 Dose: 650 mg Aspirin (Aspirin Supp) 300 mg NE DAILY [facility] Last Admin: 11/17/17 13:34 Dose: 300 mg Enoxaparin Sodium (Lovenox) 40 mg SC DAILY [facility] PRN Reason: Protocol Last Admin: 11/17/17 09:41 Dose: 40 mg Folic Acid (Folic Acid) 1 mg GT DAILY [facility] Last Admin: 11/17/17 14:24 Dose: 1 mg Sodium Chloride (Sodium Chloride 0.9%) 1,000 mls @ 85 mls/hr IV .[id number] [facility] Stop: 11/18/17 14:15 Last Admin: 11/17/17 06:33 Dose: 85 mls/hr Vancomycin HCl 1 gm/ Sodium (Chloride) 250 mls @ 166.667 mls/hr IVPB DAILY [facility] PRN Reason: Protocol Last Admin: 11/17/17 09:40 Dose: 166.667 mls/hr Piperacillin Sod/Tazobactam (Sod 3.375 gm/ Sodium Chloride) 100 mls @ 100 mls/ hr IVPB Q8 [facility] PRN Reason: Protocol Lorazepam (Ativan) 1 mg IVP Q6 PRN PRN Reason: Agitation Last Admin: 11/15/17 14:39 Dose: 1 mg Lorazepam (Ativan) 1 mg IVP PRN [facility] Last Admin: 11/17/17 01:01 Dose: 1 mg Morphine Sulfate (Morphine) 4 mg IVP Q4 PRN PRN Reason: Pain, moderate (4-7) Last Admin: 11/17/17 07:35 Dose: 4 mg Pantoprazole Sodium (Protonix Inj) 40 mg IVP DAILY [facility] Last Admin: 11/17/17 14:25 Dose: 40 mg Thiamine HCl (Vitamin B1 Tab) 100 mg NG DAILY [facility] Last Admin: 11/17/17 14:24 Dose: 100 mg - Labs Labs: 11/17/17 04:30 11/17/17 04:30 PT 11.6 Seconds (9.8-13.1) 11/15/17 08:15 INR 1.0 (0.9-1.2) 11/15/17 08:15 APTT 29.7 Seconds (25.6-37.1) 11/15/17 08:15 - Constitutional Appears: Other (intuabted on MV, not sedtaed , not responsicve with decerebrated movements) - Head Exam Head Exam: ATRAUMATIC, NORMOCEPHALIC - Eye Exam Additional comments: pin point pupils bilaterally no cornea reflex - ENT Exam ENT Exam: Mucous Membranes Dry - Neck Exam Neck Exam: Normal Inspection - Respiratory Exam Respiratory Exam: Clear to Ausculation Bilateral. absent: Rales, Rhonchi, Wheezes - GI/Abdominal Exam GI & Abdominal Exam: Soft. absent: Distended, Guarding, Tenderness, Rebound - Rectal Exam Rectal Exam: Deferred - Extremities Exam Extremities Exam: absent: Pedal Edema Additional comments: bilateral hip and lower extremities hypopigmented inflammatory skin changes left foot plantal calluses dry skin bilaterally and poor hygiene - Neurological Exam Additional comments: non responsive decerebrated movemnets bilaterally to upper extremities Brisk reflexes - Skin Skin Exam: Dry, Warm Assessment and Plan - Assessment and Plan (Free Text) Assessment: White male , Tez Christopher , unkempt, unknown PMH was broughtby EMS after he was observed by bystanders falling in the street. Patient was lethargic on admission however arousable , noted to have a facial droop and his speech was slurred. CT of head : Moderate to significant diffuse/confluent chronic white matter ischemic changes seen extending from the periventricular into the subcortical regions bilaterally. Changes are most pronounced in the parietal lobes. In addition, there are scattered chronic bilateral basal nuclei lacunar type infarcts. Small lacunar type infarcts also seen both cerebellar hemispheres. Note that the possibility of a small hyperacute infarct cannot be excluded on this study. Clinical correlation recommended. Marked dilatation of the atria and occipital horns possibly secondary to central volume loss on which is above most pronounced in the temporal occipital and parietal watershed zone regions On 11/16 noted to be obtunded ,d unable to clear his secretions, tachypneic and saturation in the 80%. He was transferred to ICU and intubated for airway protection. Repeat CT of head showed no change. At present in ICU, intubated , not sedtaed , not responsive with pinpoint pupils , decerebrated movement to upper extremities and brisk reflexes noted 1. Acute Respiratory failure due to Altered Level of consciousness intubated on MV CXR showed no infiltrates Thick secretions suctioned during intubation and with greenish secretions at present Continue respiratory toilet and sputum cxkeep HOB elevated Continue Vanco and Zosyn 2. Encephalopathy / AMS --unclear etiology r/o CVA vs infectious etiology vs seziure / postictal Most likely central etiology since patient is decorticating and having brisk reflexes. CT head showed no acute pathology Will check MRI head to r/o CVA . Check EEG Continue respiratory support Neurology consulted Will perform LP if MRI shows no acute pathology or reason for stupor to rule out [employer] infection F/u blood Cx, respiratory Cx , urine cx Continue Vanco and Zosyn for now Start Acyclovir since patient has been having Fever Tmax 103 amnd WBC trending up to 22 K send HSV 1 & 2 in blood 3.HTN (hypertension) Chronic monitor closely allow for permissive HTN for now 4. ? Alcoholism unclear if alcoholic, cannot obtain hx however ED note states that pt ETOH level low urine Tox : neg Thiamine and FA watch for active withdrawal sxs 5.DVT prophylaxis Acute Lovenox
--- NOTE | 2017-11-17 15:10 | MRI ---
PROCEDURE: MRI BRAIN WITHOUT CONTRAST HISTORY: AMS COMPARISON: None. TECHNIQUE: Multiplanar, multisequence MR images of the brain were obtained without intravenous contrast enhancement. FINDINGS: HEMORRHAGE: None DWI: There is an acute pontine infarct. This also extends into the midbrain. Small bilateral infarcts are seen in the cerebellar hemispheres. Small bilateral thalamic infarcts are also seen. The findings fit the distribution of the tip of the basilar artery as well as branches of the posterior cerebral and cerebellar arteries. I called the ICU and spoke to the patient's nurse Meghan at 2:55 p.m. BRAIN PARENCHYMA: Moderate atrophy and microvascular changes are seen VENTRICLES: Unremarkable. No hydrocephalus. CRANIUM: Unremarkable. ORBITS: Grossly unremarkable. PARANASAL SINUSES/MASTOIDS: Clear VASCULAR SYSTEM: There is slow flow in the basilar artery which is high in signal intensity on T1 imaging. Normal flow voids are seen on FLAIR and T2 imaging OTHER FINDINGS: None. IMPRESSION: Acute pontine infarct with smaller infarcts in the midbrain, cerebellar hemispheres and thalami. See comments
[2017-11-17] MEDS ORDERED: Acyclovir 500 MG in Sodium Chloride 0.9% 100 ML IVPB SCH (17:00)
[2017-11-17] MEDS: Piperacillin/Tazobact 3.375 GM in Sodium Chloride 0.9% 100 ML IVPB SCH (17:02)
[2017-11-18] MEDS: Morphine 4 MG/ML VIAL IVP PRN (02:01)
[2017-11-18 05:04] LABS: ABG ALLEN TEST YES; ARTERIAL BLOOD GAS HCO3 22.7 mmol/L (21-28); ARTERIAL BLOOD GAS HEMOGLOBIN 12.1 g/dL (11.7-17.4); ARTERIAL BLOOD GAS O2 CAPACITY 16.7 mL/dL (16-24); ARTERIAL BLOOD GAS O2 CONTENT 16.4 ML/dL (15-23); ARTERIAL BLOOD GAS O2 SAT 98.3 % (95-98); ARTERIAL BLOOD GAS PCO2 37 mm/Hg (35-45); ARTERIAL BLOOD GAS PH 7.38 (7.35-7.45); ARTERIAL BLOOD GAS PO2 95 mm/Hg (80-100)
[2017-11-18 05:26] LABS: HEMOGLOBIN 12.1 g/dL (12.0-18.0); MEAN CELL VOLUME 93.3 fl (80.0-94.0); MEAN CORPUSCULAR HEMOGLOBIN 30.6 pg (27.0-31.0); MEAN CORPUSCULAR HGB CONC 32.8 g/dL (33.0-37.0); RBC 3.97 Mil/uL (4.40-5.90); WHITE BLOOD COUNT 15.3 K/uL (4.8-10.8)
[2017-11-18 05:49] LABS: BLOOD UREA NITROGEN 20 mg/dl (9-20); CALCIUM 8.4 mg/dL (8.4-10.2); GFR AFRICAN-AMERICAN > 60; GFR NON-AFRICAN AMERICAN > 60
--- NOTE | 2017-11-18 07:48 | RAD ---
PROCEDURE: CHEST RADIOGRAPH, 1 VIEW HISTORY: intubated COMPARISON: Portable chest 11/17/2017. FINDINGS: LUNGS: Endotracheal and nasogastric tubes appear unchanged in position. Trace medial left basilar atelectasis is favored over infiltrate with remaining lung peres clear. No pleural effusion or pneumothorax bilaterally. Vascular pattern is normal swells cardiac size parent PLEURA: As above. CARDIOVASCULAR: As above. OSSEOUS STRUCTURES: No significant abnormalities. VISUALIZED UPPER ABDOMEN: Normal. OTHER FINDINGS: None. IMPRESSION: Limited medial basilar atelectasis favored over infiltrate. Examination appears stable.
[2017-11-18] MEDS: Enoxaparin 40 mg Syringe SC SCH (08:20)
[2017-11-18] MEDS: Piperacillin/Tazobact 3.375 GM in Sodium Chloride 0.9% 100 ML IVPB SCH ×2 (08:21→16:28)
--- NOTE | 2017-11-18 09:52 | CP.PCM.PN ---
Subjective - Date & Time of Evaluation Date of Evaluation: 11/18/17 Time of Evaluation: 09:51 - Subjective Subjective: Mr. White was seen and examined at the bedside in ICU. He remains on mechanical ventilator on PRVC mode. His pupils are sluggishly reactive to light accommodation, + gag reflex, withdraws from pain stimuli. He is tolerating his NGT feedings. MRI of the brain showed acute pontine infarct with smaller infarcts in the midbrain, cerebellar hemispheres, and thalami. There was no untoward events overnight. Objective - Vital Signs/Intake and Output Vital Signs (last 24 hours): Temp Pulse Resp BP Pulse Ox 100.3 F H 75 17 110/66 100 11/18/17 09:00 11/18/17 09:00 11/18/17 09:00 11/18/17 09:00 11/18/17 09:00 Intake and Output: 11/18/17 11/18/17 06:59 18:59 Intake Total 85 170 Output Total 50 Balance 35 170 - Medications Medications: Current Medications Acetaminophen (Tylenol 650 Mg Supp) 650 mg [place] Q6 PRN PRN Reason: Fever >100.4 F Last Admin: 11/18/17 02:35 Dose: 650 mg Amantadine HCl (Amantadine 100 Mg Cap) 100 mg PO BID [facility] Last Admin: 11/18/17 08:20 Dose: 100 mg Aspirin (Aspirin Chewable) 81 mg NG DAILY [facility] Atorvastatin Calcium (Lipitor) 40 mg PO HS [facility] Last Admin: 11/17/17 21:35 Dose: 40 mg Clopidogrel Bisulfate (Plavix) 75 mg NG DAILY [facility] Enoxaparin Sodium (Lovenox) 40 mg SC DAILY [facility] PRN Reason: Protocol Last Admin: 11/18/17 08:20 Dose: 40 mg Folic Acid (Folic Acid) 1 mg GT DAILY [facility] Last Admin: 11/18/17 08:20 Dose: 1 mg Sodium Chloride (Sodium Chloride 0.9%) 1,000 mls @ 85 mls/hr IV .[id number] [facility] Stop: 11/18/17 14:15 Last Admin: 11/17/17 06:33 Dose: 85 mls/hr Vancomycin HCl 1 gm/ Sodium (Chloride) 250 mls @ 166.667 mls/hr IVPB DAILY [facility] PRN Reason: Protocol Last Admin: 11/17/17 09:40 Dose: 166.667 mls/hr Piperacillin Sod/Tazobactam (Sod 3.375 gm/ Sodium Chloride) 100 mls @ 100 mls/ hr IVPB Q8 [facility] PRN Reason: Protocol Last Admin: 11/18/17 08:21 Dose: 100 mls/hr Acyclovir 500 mg/ Sodium (Chloride) 100 mls @ 100 mls/hr IVPB Q8 [facility] PRN Reason: Protocol Last Admin: 11/18/17 08:23 Dose: 100 mls/hr Lorazepam (Ativan) 1 mg IVP PRN [facility] Last Admin: 11/17/17 01:01 Dose: 1 mg Morphine Sulfate (Morphine) 4 mg IVP Q4 PRN PRN Reason: Pain, moderate (4-7) Last Admin: 11/18/17 02:01 Dose: 4 mg Pantoprazole Sodium (Protonix Inj) 40 mg IVP DAILY [facility] Last Admin: 11/18/17 08:20 Dose: 40 mg Thiamine HCl (Vitamin B1 Tab) 100 mg NG DAILY [facility] Last Admin: 11/18/17 08:20 Dose: 100 mg - Labs Labs: 11/18/17 04:30 11/18/17 04:30 PT 11.6 Seconds (9.8-13.1) 11/15/17 08:15 INR 1.0 (0.9-1.2) 11/15/17 08:15 APTT 29.7 Seconds (25.6-37.1) 11/15/17 08:15 - Constitutional Appears: No Acute Distress - Head Exam Head Exam: NORMAL INSPECTION - Eye Exam Pupil Exam: PERRL Additional comments: sluggish 3 mm bilaterally. Assessment and Plan (1) Ischemic stroke Assessment & Plan: Case discussed with Dr. Mcneill, continue all current medical regimen. Recommend changing aspirin via [place] to aspirin 81 mg NGT daily, Plavix 75 mg NGT daily, and Amantadine 100 mg NGT daily. Pending results of EEG. Status: Acute
--- NOTE | 2017-11-18 10:25 | CP.CCUPN ---
<Mich Garcia - Last Filed: 11/18/17 13:26> CCU Subjective - Physician Review Subjective (Free Text): pt seen and examined at bedside. Intubated. Vitals stable overnight. No acute events overnight. Febrile. Decerebrate posturing not as frequent. Reflexes 4/5 b /l compared to yesterdays 5+ b/l. Pupils reactive to light but sluggish. + Corneal reflex today. Labs/vitals/nursing documentation reviewed. CCU Objective - Vital Signs / Intake & Output Vital Signs (Last 4 hours): Vital Signs Temp Pulse Resp BP Pulse Ox 11/18/17 10:00 72 17 120/65 100 11/18/17 09:00 100.3 F H 75 17 110/66 100 Intake and Output (Last 8hrs): Intake & Output 11/17/17 11/18/17 11/18/17 22:59 06:59 14:59 Intake Total 1285 710 Output Total 350 Balance 935 710 Intake: IV 935 170 Intake, Piggyback 350 350 Tube Feeding 40 Free Water Flush 150 Output: Urine 350 2-way Urethral 350 - Physical Exam Physical Exam Limitations: Positive for: Altered Mental Status (comatose ) Head: Positive for: Atraumatic, Normocephalic. Negative for: Ecchymosis, Abrasion, Laceration Pupils: Positive for: Sluggish Extroacular Muscles: Negative for: EOMI, Gaze Palsy Conjunctiva: Positive for: Normal. Negative for: Injected, Icteric Ears: Positive for: Normal Mouth: Positive for: Dry. Negative for: Normal Teeth (missing dentition ) Pharnyx: Positive for: Normal. Negative for: ERYTHEMA, EXUDATE, TONSILS ENLARGED Neck: Positive for: Normal Range of Motion, Trachea Midline. Negative for: Meningeal Signs, JVD, Lymphadenopathy Respiratory/Chest: Positive for: Clear to Auscultation, Respiratory Distress, Accessory Muscle Use, Tachypneic. Negative for: Decreased Breath Sounds, Rales , Retracting, Rhonchi, Tender to Palpation Cardiovascular: Positive for: Normal S1, S2, Peripheal Pulses Present, Tachycardic. Negative for: Regular Rate and Rhythm, Murmurs, Irregular Rhythm, Rub, Gallop, Muffled Abdomen: Positive for: Normal Bowel Sounds. Negative for: Tenderness, Distention, Peritoneal Signs Upper Extremity: Positive for: Normal Inspection, Capillary Refill < 2s. Negative for: Cyanosis, Edema Lower Extremity: Positive for: Normal Inspection, NORMAL PULSES, Neurovascularly Intact, Capillary Refill < 2 s. Negative for: Edema, CALF TENDERNESS, Swelling, Erythema, Temperature Abnormalties Neurological: Positive for: Motor Func Grossly Intact, Other (intermittent decerebrate posturing, less frequent today. +corneal reflex today). Negative for: GCS=15 (GCS: 9), CN II-XII Intact, Speech Normal (unable to evaluate ), Normal Sensory Function, Normal Cerebellar Funct, Norm Deep Tendon Reflexes ( asymmetric rigidity with brisk reflexes b/l, improved ) Skin: Positive for: Warm, Dry. Negative for: Normal Color (vitiligo?, chronic skin changes from weather exposure and recurrent friction/trauma ), Laceration Lymphatic: Negative for: Cervical Adenopathy Psychiatric: Positive for: Other (comatose). Negative for: Alert, Oriented x 3 , Normal Insight, Normal Concentration - Medications Active Medications: Active Medications Generic Name Dose Route Start Last Admin Trade Name Freq PRN Reason Stop Dose Admin Acetaminophen 650 mg 11/16/17 23:44 11/18/17 02:35 Tylenol 650 Mg Supp [place] 650 mg Q6 PRN Administration Fever >100.4 F Amantadine HCl 100 mg 11/17/17 17:00 11/18/17 08:20 Amantadine 100 Mg Cap PO 100 mg BID [facility] Administration Aspirin 81 mg 11/19/17 09:00 Aspirin Chewable NG DAILY [facility] Atorvastatin Calcium 40 mg 11/17/17 22:00 11/17/17 21:35 Lipitor PO 40 mg HS [facility] Administration Clopidogrel Bisulfate 75 mg 11/18/17 09:45 11/18/17 09:53 Plavix NG 75 mg DAILY [facility] Administration Enoxaparin Sodium 40 mg 11/16/17 09:00 11/18/17 08:20 Lovenox SC 40 mg DAILY [facility] Administration Protocol Folic Acid 1 mg 11/17/17 09:00 11/18/17 08:20 Folic Acid GT 1 mg DAILY [facility] Administration Sodium Chloride 1,000 mls @ 85 mls/hr 11/16/17 14:15 11/17/17 06:33 Sodium Chloride 0.9% IV 11/18/17 14:15 85 mls/hr .[id number] [facility] Administration Vancomycin HCl 1 gm/ Sodium 250 mls @ 166.667 mls/hr 11/16/17 15:30 11/18/17 09:54 Chloride IVPB 166.667 mls/hr DAILY [facility] Administration Protocol Piperacillin Sod/Tazobactam 100 mls @ 100 mls/hr 11/17/17 17:00 11/18/17 08: 21 Sod 3.375 gm/ Sodium Chloride IVPB 100 mls/hr Q8 [facility] Administration Protocol Acyclovir 500 mg/ Sodium 100 mls @ 100 mls/hr 11/17/17 17:00 11/18/17 08:23 Chloride IVPB 100 mls/hr Q8 [facility] Administration Protocol Lorazepam 1 mg 11/16/17 15:30 11/17/17 01:01 Ativan IVP 1 mg PRN [facility] Administration Morphine Sulfate 4 mg 11/16/17 15:28 11/18/17 02:01 Morphine IVP 4 mg Q4 PRN Administration Pain, moderate (4-7) Pantoprazole Sodium 40 mg 11/15/17 09:15 11/18/17 08:20 Protonix Inj IVP 40 mg DAILY [facility] Administration Thiamine HCl 100 mg 11/17/17 13:45 11/18/17 08:20 Vitamin B1 Tab NG 100 mg DAILY [facility] Administration - Patient Studies Lab Studies: Microbiology Studies 11/17/17 04:30 Blood Culture - Preliminary Blood-Venous NO GROWTH AFTER 24 HOURS 11/17/17 04:40 Blood Culture - Preliminary Blood-Venous NO GROWTH AFTER 24 HOURS 11/16/17 11:40 MRSA Culture (Admit) - Final Naris MRSA NOT DETECTED 11/16/17 12:20 Gram Stain - Preliminary Sputum Lab Studies 11/18/17 11/18/17 11/18/17 Range/Units 04:30 04:30 04:00 WBC 15.3 H (4.8-10.8) K/uL RBC 3.97 L (4.40-5.90) Mil/uL Hgb 12.1 (12.0-18.0) g/dL Hct 37.0 (35.0-51.0) % MCV 93.3 (80.0-94.0) fl MCH 30.6 (27.0-31.0) pg MCHC 32.8 L (33.0-37.0) g/dL RDW 15.0 H (11.5-14.5) % Plt Count 120 L (130-400) K/uL pCO2 37 (35-45) mm/Hg pO2 95 (80-100) mm/Hg HCO3 22.7 (21-28) mmol/L ABG pH 7.38 (7.35-7.45) ABG Total CO2 23.0 (22-28) mmol/L ABG O2 Saturation 98.3 H (95-98) % ABG O2 Content 16.4 (15-23) ML/dL ABG Base Excess -2.8 L (-2.0-3.0) mmol/L ABG Hemoglobin 12.1 (11.7-17.4) g/dL ABG Carboxyhemoglobin 1.4 (0.5-1.5) % POC ABG HHb (Measured) 1.7 (0.0-5.0) % ABG Methemoglobin 1.2 (0.0-3.0) % ABG O2 Capacity 16.7 (16-24) mL/dL Roberto Test Yes A-a O2 Difference 144.0 mm/Hg Hgb O2 Saturation 95.7 (95.0-98.0) % Vent Mode A/c Mechanical Rate 16 FiO2 40.0 % Tidal Volume 450 PEEP 5 Sodium 145 (132-148) mmol/l Potassium 3.4 L (3.6-5.0) MMOL/L Chloride 108 H (98-107) mmol/L Carbon Dioxide 22 (22-30) mmol/L Anion Gap 18 (10-20) BUN 20 (9-20) mg/dl Creatinine 0.7 L (0.8-1.5) mg/dl Est GFR ( Amer) > 60 Est GFR (Non-Af Amer) > 60 Random Glucose 70 L (75-110) mg/dL Calcium 8.4 (8.4-10.2) mg/dL Laboratory Results - last 24 hr 11/18/17 11/18/17 11/18/17 04:00 04:30 04:30 WBC 15.3 H RBC 3.97 L Hgb 12.1 Hct 37.0 MCV 93.3 MCH 30.6 MCHC 32.8 L RDW 15.0 H Plt Count 120 L pCO2 37 pO2 95 HCO3 22.7 ABG pH 7.38 ABG Total CO2 23.0 ABG O2 Saturation 98.3 H ABG O2 Content 16.4 ABG Base Excess -2.8 L ABG Hemoglobin 12.1 ABG Carboxyhemoglobin 1.4 POC ABG HHb (Measured) 1.7 ABG Methemoglobin 1.2 ABG O2 Capacity 16.7 Roberto Test Yes A-a O2 Difference 144.0 Hgb O2 Saturation 95.7 Vent Mode A/c Mechanical Rate 16 FiO2 40.0 Tidal Volume 450 PEEP 5 Sodium 145 Potassium 3.4 L Chloride 108 H Carbon Dioxide 22 Anion Gap 18 BUN 20 Creatinine 0.7 L Est GFR ( Amer) > 60 Est GFR (Non-Af Amer) > 60 Random Glucose 70 L Calcium 8.4 Fingerstick Blood Sugar Results: 108 Review of Systems - Review of Systems Systems not reviewed;Unavailable: Altered Mental Status Critical Care Progress Note - Ventilator Checklist Head of Bed 30 Degrees: Yes PUD Prophalyxis: Yes (PPI) DVT Prophylaxis: Yes (lovenox) Oral Care with Chlorhexidine Gluconate {CHG}: Yes - Vent Settings MODE:: PRVC TIDAL VOLUME:: 450 RESP RATE:: 16 FIO2:: 40 PEEP:: 5 - Extremities/Vascular Does the Patient have a Central Venous Catheter?: No Does the Patient have a Holloway Catheter?: Yes Does the Patient need a Holloway Catheter?: Yes Catheter Insertion Criteria: Need for accurate measurement of output in critically ill patient - Prophylaxis GI Prophylaxis GI: PPI - Prophylaxis DVT Prophylaxis DVT: Lovenox - Nutrition Nutrition: Nutrition Category Date Time Status NPO Diet [DIET] Diets 11/15/17 Lunch Active Assessment/Plan - Assessment and Plan (Free Text) Assessment: 63 y/o male, with unobtainable medical history, admitted to hospital for AMS of uncertain etiology, transferred to ICU due to worsening mental status, tachypnea , and desaturation, 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 Plan: 1) Altered Mental Status/Acute Pontine infarct with extension to midbrain -EEG-pending -brain MRI: acute pontine infaract with extension to midbrain. Smaller cerebellar infarcts b/l -Intubated -c/w respiratory support -repeat ABG in AM -aspirin/plavix as per neuro -amantadine 2) Hypokalemia -3.4 -replete K+ via OGT -repeat AM labs 3) Leukocytosis -improving -15.3 today -febrile overnight -Ucx: gram positive cocci -c/w Vanco/Zosyn -Diflucan for fungal -d/c Acyclovir -CXR clear 4) Suspected history of ETOH abuse -no elevation in tranasminases -currently on Thiamine/Folate IV supplementation -maintenance fluids, NS @ 85 mls/hr 5) Elevated Blood Pressure without Diagnosis of HTN -stable -labs reviewed -normalized BP today -monitor BPs 6) Prophylaxis -Head of bed elevation @ 30 degrees -Protonix 40mg IVP QD -Lovenox 40mg SC QD -SCDs 7) Code Status: -Full code <Talib Montejo - Last Filed: 11/18/17 18:44> CCU Subjective - Physician Review Subjective (Free Text): Attestation: Patient seen and examined at the bedside with Resident Dr. Chastity Garcia; and I agree with his outline of plans and management documented below as discussed on AM rounds reflecting my review of all applicable clinical data, and participation in the care of the patient throughout the day in ICU; today, November 18, 2017.
[2017-11-18] MEDS ORDERED: Potassium Chloride 20 mEq/15 ml LIQ UD PO ONE (10:57)
[2017-11-18] MEDS ORDERED: Fluconazole IV 100mg/50 ml NS 50 ML IVPB SCH (11:00)
--- NOTE | 2017-11-18 12:23 | CARD ---
APPROVED REPORT EKG Measurement Heart [id number] <Conclusion> Normal sinus rhythm Inferior infarct, age undetermined Abnormal ECG
--- NOTE | 2017-11-18 12:33 | CP.PCM.PN ---
Subjective - Date & Time of Evaluation Date of Evaluation: 11/18/17 Time of Evaluation: 09:00 - Subjective Subjective: Patient seen and evaluated bedside in ICU. Intubated on MV PRVC /AC mode 16/450/ 5/40 %, not sedated , unresponsive. Pupils 3 mm bilaterally sluggish.Cornea and gag reflex present. Decerebrated movements of bilateral upper extremities still noted but to a much lesser extend compared to the day prior , brisk reflexes to lower extremities but not as pronounced as yesterday Hemodynamically stable, breathing over the vent BP 110/66 HR 75 Saturating 100 % Tmax 100.3 last 12 hours HR RR 23 ABG 37/95/22/7.3 WBc trending down from 22 K to 15 K Hgb 12 PLt 120K Na 145 K 3.4 MRI brain showed acute pontine infarct, midbrain , cerebellar hemispheres and thalami infarcts Objective - Vital Signs/Intake and Output Vital Signs (last 24 hours): Temp Pulse Resp BP Pulse Ox 100.3 F H 72 17 120/65 100 11/18/17 09:00 11/18/17 10:00 11/18/17 10:00 11/18/17 10:00 11/18/17 10:00 Intake and Output: 11/18/17 11/18/17 06:59 18:59 Intake Total 85 710 Output Total 50 Balance 35 710 - Medications Medications: Current Medications Acetaminophen (Tylenol 650 Mg Supp) 650 mg HI Q6 PRN PRN Reason: Fever >100.4 F Last Admin: 11/18/17 02:35 Dose: 650 mg Amantadine HCl (Amantadine 100 Mg Cap) 100 mg PO BID [facility] Last Admin: 11/18/17 08:20 Dose: 100 mg Aspirin (Aspirin Chewable) 81 mg NG DAILY [facility] Atorvastatin Calcium (Lipitor) 40 mg PO HS [facility] Last Admin: 11/17/17 21:35 Dose: 40 mg Clopidogrel Bisulfate (Plavix) 75 mg NG DAILY [facility] Last Admin: 11/18/17 09:53 Dose: 75 mg Enoxaparin Sodium (Lovenox) 40 mg SC DAILY [facility] PRN Reason: Protocol Last Admin: 11/18/17 08:20 Dose: 40 mg Folic Acid (Folic Acid) 1 mg GT DAILY [facility] Last Admin: 11/18/17 08:20 Dose: 1 mg Sodium Chloride (Sodium Chloride 0.9%) 1,000 mls @ 85 mls/hr IV .[id number] [facility] Stop: 11/18/17 14:15 Last Admin: 11/17/17 06:33 Dose: 85 mls/hr Vancomycin HCl 1 gm/ Sodium (Chloride) 250 mls @ 166.667 mls/hr IVPB DAILY [facility] PRN Reason: Protocol Last Admin: 11/18/17 09:54 Dose: 166.667 mls/hr Piperacillin Sod/Tazobactam (Sod 3.375 gm/ Sodium Chloride) 100 mls @ 100 mls/ hr IVPB Q8 [facility] PRN Reason: Protocol Last Admin: 11/18/17 08:21 Dose: 100 mls/hr Fluconazole (Diflucan Iv 100 Mg/50 Ml Ns) 50 mls @ 50 mls/hr IVPB DAILY [facility] PRN Reason: Protocol Last Admin: 11/18/17 11:42 Dose: 50 mls/hr Lorazepam (Ativan) 1 mg IVP PRN [facility] Last Admin: 11/17/17 01:01 Dose: 1 mg Morphine Sulfate (Morphine) 4 mg IVP Q4 PRN PRN Reason: Pain, moderate (4-7) Last Admin: 11/18/17 02:01 Dose: 4 mg Pantoprazole Sodium (Protonix Inj) 40 mg IVP DAILY [facility] Last Admin: 11/18/17 08:20 Dose: 40 mg Thiamine HCl (Vitamin B1 Tab) 100 mg NG DAILY [facility] Last Admin: 11/18/17 08:20 Dose: 100 mg - Labs Labs: 11/18/17 04:30 11/18/17 04:30 PT 11.6 Seconds (9.8-13.1) 11/15/17 08:15 INR 1.0 (0.9-1.2) 11/15/17 08:15 APTT 29.7 Seconds (25.6-37.1) 11/15/17 08:15 - Constitutional Appears: Other (intubated on MV , not sedtaed ,, unresponsive , sluggish pupils) - Head Exam Head Exam: ATRAUMATIC, NORMOCEPHALIC - Eye Exam Additional comments: 3 mm bilateral sluggish - ENT Exam ENT Exam: Mucous Membranes Dry - Neck Exam Neck Exam: Normal Inspection - Respiratory Exam Respiratory Exam: Decreased Breath Sounds (right base). absent: Rales, Rhonchi , Wheezes, Respiratory Distress - Cardiovascular Exam Cardiovascular Exam: REGULAR RHYTHM, +S1, +S2. absent: JVD - GI/Abdominal Exam GI & Abdominal Exam: Soft, Normal Bowel Sounds. absent: Distended, Guarding, Tenderness, Rebound - Rectal Exam Rectal Exam: Deferred - Extremities Exam Additional comments: bilateral hip and lower extremities , denuded hypopigmented skin color changes - Neurological Exam Additional comments: sluggish pupils cornea and gag reflex present Unresponsive decerebrated motion present on upper extremities brisk reflexes - Skin Skin Exam: Dry, Warm Additional comments: bilateral hip and lower extremities , larges areas of skin with hypopigmentation Assessment and Plan - Assessment and Plan (Free Text) Assessment: White male , Tez White , unkempt, unknown PMH was broughtby EMS after he was observed by bystanders falling in the street. Patient was lethargic on admission however arousable , noted to have a facial droop and his speech was slurred. CT of head : Moderate to significant diffuse/confluent chronic white matter ischemic changes seen extending from the periventricular into the subcortical regions bilaterally. Changes are most pronounced in the parietal lobes. In addition, there are scattered chronic bilateral basal nuclei lacunar type infarcts. Small lacunar type infarcts also seen both cerebellar hemispheres. Note that the possibility of a small hyperacute infarct cannot be excluded on this study. Clinical correlation recommended. Marked dilatation of the atria and occipital horns possibly secondary to central volume loss on which is above most pronounced in the temporal occipital and parietal watershed zone regions On 11/16 noted to be obtunded ,unable to clear his secretions, tachypneic and saturation in the 80%. He was transferred to ICU and intubated for airway protection. Repeat CT of head showed no change.MRI showed pontine, muidbrain, cerebellar hemispheres and thalami infarct. patient is intubated , unresponsive , with decerebrated movement to upper extremities and brisk refelxes 2. Encephalopathy / AMS secondary to acute CVA MRI brain showed pontine , midbrain, cerebellar hemispheres and thalamic infa= rct patient intubated , unresponsive , gag and corene areflexes present , breathing over the vent Neurology on cponsult Continue ASA, Started Statin, Plavix and Amantadine Vent management Permissive hypertension OGT feeding guarded prognosis 2. Acute Respiratory failure due to Altered Level of consciousness and CVA Breathing over the vent intubated on MV CXR showed no infiltrates Thick secretions suctioned during intubation and with greenish secretions at present afterwards Started Vanco , Zosyn IV empirically for possible URI since patient had elevated WBC count and is febrile Sputum Cx , blood cx with no growth D/c Acyclovir WBC trending down fromn 22 K -- 15 K Tmax 100.3 Keep HOB elevated and respiratory toilet with frequent suctioning 3.HTN (hypertension) Chronic BP lower today allow for permissive HTN for now 4. ? Alcoholism unclear if alcoholic, cannot obtain hx however ED note stated that pateint has history of ETOH ETOH level low urine Tox : neg Thiamine and FA watch for active withdrawal sxs 5.DVT prophylaxis Acute Lovenox
[2017-11-18] MEDS: Sodium Chloride 0.9% 1,000 ML IV SCH (20:00)
[2017-11-19] MEDS: Piperacillin/Tazobact 3.375 GM in Sodium Chloride 0.9% 100 ML IVPB SCH ×3 (01:35→17:22)
[2017-11-19 05:10] LABS: ABG ALLEN TEST YES; ARTERIAL BLOOD GAS HCO3 26.1 mmol/L (21-28); ARTERIAL BLOOD GAS O2 CAPACITY 15.1 mL/dL (16-24); ARTERIAL BLOOD GAS O2 CONTENT 14.7 ML/dL (15-23); ARTERIAL BLOOD GAS O2 SAT 97.1 % (95-98); ARTERIAL BLOOD GAS PCO2 38 mm/Hg (35-45); ARTERIAL BLOOD GAS PH 7.44 (7.35-7.45); ARTERIAL BLOOD GAS PO2 74 mm/Hg (80-100)
[2017-11-19 05:27] LABS: HEMOGLOBIN 11.3 g/dL (12.0-18.0); MEAN CELL VOLUME 92.4 fl (80.0-94.0); MEAN CORPUSCULAR HEMOGLOBIN 30.5 pg (27.0-31.0); RBC 3.71 Mil/uL (4.40-5.90); RED CELL DISTRIBUTION WIDTH 15.1 % (11.5-14.5); WHITE BLOOD COUNT 7.9 K/uL (4.8-10.8)
[2017-11-19 06:33] LABS: BLOOD UREA NITROGEN 15 mg/dl (9-20); CALCIUM 7.7 mg/dL (8.4-10.2); GFR AFRICAN-AMERICAN > 60; GFR NON-AFRICAN AMERICAN > 60
--- NOTE | 2017-11-19 07:27 | CP.PCM.PN ---
Subjective - Date & Time of Evaluation Date of Evaluation: 11/19/17 Time of Evaluation: 08:00 - Subjective Subjective: Patient seen and evaluated bedside . Intubated on MV PRVC /AC mode 16/450/5/40 % , not sedated , unresponsive. Pupils 2 mm bilaterally sluggish.Cornea and gag reflex present. Hemodynamically stable, breathing over the vent BP 136/70 HR 86 Saturating 100 % Tmax 100 last 12 hours ABG 38/74/26/7.4 WBC 7.9 Hgb 11 Plt 149 K Na 146 K 3.4 Cl 108 Objective - Vital Signs/Intake and Output Vital Signs (last 24 hours): Temp Pulse Resp BP Pulse Ox 100.0 F H 86 20 136/70 100 11/19/17 04:00 11/19/17 06:00 11/19/17 06:00 11/19/17 06:00 11/19/17 06:00 Intake and Output: 11/19/17 11/19/17 06:59 18:59 Intake Total 2205 Output Total 600 Balance 1605 - Medications Medications: Current Medications Acetaminophen (Tylenol 650 Mg Supp) 650 mg MI Q6 PRN PRN Reason: Fever >100.4 F Last Admin: 11/18/17 02:35 Dose: 650 mg Amantadine HCl (Amantadine 100 Mg Cap) 100 mg PO BID [facility] Last Admin: 11/18/17 16:28 Dose: 100 mg Aspirin (Aspirin Chewable) 81 mg NG DAILY [facility] Atorvastatin Calcium (Lipitor) 40 mg PO HS [facility] Last Admin: 11/18/17 21:13 Dose: 40 mg Clopidogrel Bisulfate (Plavix) 75 mg NG DAILY [facility] Last Admin: 11/18/17 09:53 Dose: 75 mg Enoxaparin Sodium (Lovenox) 40 mg SC DAILY [facility] PRN Reason: Protocol Last Admin: 11/18/17 08:20 Dose: 40 mg Folic Acid (Folic Acid) 1 mg GT DAILY [facility] Last Admin: 11/18/17 08:20 Dose: 1 mg Vancomycin HCl 1 gm/ Sodium (Chloride) 250 mls @ 166.667 mls/hr IVPB DAILY [facility] PRN Reason: Protocol Last Admin: 11/18/17 09:54 Dose: 166.667 mls/hr Piperacillin Sod/Tazobactam (Sod 3.375 gm/ Sodium Chloride) 100 mls @ 100 mls/ hr IVPB Q8 [facility] PRN Reason: Protocol Last Admin: 11/19/17 01:35 Dose: 100 mls/hr Pantoprazole Sodium (Protonix Susp) 40 mg NG DAILY [facility] Thiamine HCl (Vitamin B1 Tab) 100 mg NG DAILY [facility] Last Admin: 11/18/17 08:20 Dose: 100 mg - Labs Labs: 11/19/17 04:32 11/19/17 04:32 PT 11.6 Seconds (9.8-13.1) 11/15/17 08:15 INR 1.0 (0.9-1.2) 11/15/17 08:15 APTT 29.7 Seconds (25.6-37.1) 11/15/17 08:15 - Constitutional Appears: Other (intubated on MV, not sedatd , unresponsive) - Head Exam Head Exam: ATRAUMATIC, NORMOCEPHALIC - Eye Exam Additional comments: equal bilaterally 2 mm, sluggish - ENT Exam ENT Exam: Mucous Membranes Dry - Neck Exam Neck Exam: Normal Inspection - Respiratory Exam Respiratory Exam: Clear to Ausculation Bilateral, NORMAL BREATHING PATTERN. absent: Rales, Wheezes, Respiratory Distress - Cardiovascular Exam Cardiovascular Exam: REGULAR RHYTHM, RRR, +S1, +S2. absent: JVD - GI/Abdominal Exam GI & Abdominal Exam: Soft, Normal Bowel Sounds. absent: Distended, Guarding, Rebound - Rectal Exam Rectal Exam: Deferred - Extremities Exam Extremities Exam: absent: Pedal Edema Additional comments: right foot calluses lower ext skin hypopigmentation Bilateral hips laterally hypopigmented areas - Neurological Exam Additional comments: unresponsive brisk reflexes comatose pupils equal bilaterally 2 mm sluggishly responsive to light decerebrated motion with rigidity to extremities noted with noxious stimuli - Psychiatric Exam Additional comments: unresponsive - Skin Skin Exam: Dry, Warm Additional comments: bilateral hips hypopigmented areas bilateral LE hypo/ hyperpigmented skin changes Assessment and Plan - Assessment and Plan (Free Text) Assessment: White male , Tez White , unkempt, unknown PMH was broughtby EMS after he was observed by bystanders falling in the street. Patient was lethargic on admission however arousable , noted to have a facial droop and his speech was slurred. CT of head : Moderate to significant diffuse/confluent chronic white matter ischemic changes seen extending from the periventricular into the subcortical regions bilaterally. Changes are most pronounced in the parietal lobes. In addition, there are scattered chronic bilateral basal nuclei lacunar type infarcts. Small lacunar type infarcts also seen both cerebellar hemispheres. Note that the possibility of a small hyperacute infarct cannot be excluded on this study. Clinical correlation recommended. Marked dilatation of the atria and occipital horns possibly secondary to central volume loss on which is above most pronounced in the temporal occipital and parietal watershed zone regions On 11/16 noted to be obtunded ,unable to clear his secretions, tachypneic and saturation in the 80%. He was transferred to ICU and intubated for airway protection. Repeat CT of head showed no change.MRI showed pontine, midbrain, cerebellar hemispheres and thalami infarct. Patient is intubated , unresponsive , with decerebrated movement to upper extremities and brisk reflexes. No changes overnight Tmax 100 and urine growing gram positive Cocci WBC 7.9 2. Encephalopathy / AMS secondary to acute CVA MRI brain showed pontine , midbrain, cerebellar hemispheres and thalamic infarct patient intubated , unresponsive , gag and cornea reflexes present , breathing over the vent Neurology on consult Continue ASA, Statin, Plavix and Amantadine Vent management Permissive hypertension OGT feeding guarded prognosis 2. Acute Respiratory failure due to Altered Level of consciousness and CVA Breathing over the vent intubated on MV CXR showed no infiltrates Thick secretions suctioned during intubation and with greenish secretions at present afterwards Started Vanco , Zosyn IV empirically for possible URI since patient had elevated WBC count and is febrile Sputum Cx , blood cx with no growth WBC trending down fromn 22 K -- 7.8 K Tmax 100 Keep HOB elevated and respiratory toilet with frequent suctioning 3.HTN (hypertension) Chronic allow for permissive HTN for now 4. UTI urine cx positive for gram positive Cocci Continue vanco 5. ? Alcoholism unclear if alcoholic, cannot obtain hx however ED note stated that pateint has history of ETOH ETOH level low urine Tox : neg Thiamine and FA watch for active withdrawal sxs 6.DVT prophylaxis Acute Lovenox
[2017-11-19] MEDS: Pantoprazole 40 mg Susp UD NG SCH (08:40)
[2017-11-19] MEDS: Enoxaparin 40 mg Syringe SC SCH (08:40)
[2017-11-19] MEDS ORDERED: Potassium Chloride 20 mEq/15 ml LIQ UD PO ONE (12:12)
--- NOTE | 2017-11-19 15:29 | CP.CCUPN ---
CCU Subjective - Physician Review Events Since Last Encounter (Free Text): 11/19/17 15:27 comatose, decorticate response to deep painful stimuli. CCU Objective - Vital Signs / Intake & Output Vital Signs (Last 4 hours): Vital Signs Temp Pulse Resp BP Pulse Ox 11/19/17 13:58 77 19 139/74 100 11/19/17 12:00 98.5 F 78 19 138/77 100 Intake and Output (Last 8hrs): Intake & Output 11/19/17 11/19/17 11/19/17 06:59 14:59 22:59 Intake Total 1460 1487 Output Total 600 Balance 860 1487 Intake: IV 680 357 Intake, Piggyback 350 Oral 360 Tube Feeding 480 420 Free Water Flush 300 Output: Stool 600 Other: # Bowel Movements 0 - Physical Exam Head: Positive for: Atraumatic, Normocephalic. Negative for: Ecchymosis, Abrasion, Laceration Pupils: Positive for: Sluggish Extroacular Muscles: Negative for: EOMI, Gaze Palsy Conjunctiva: Positive for: Normal. Negative for: Injected, Icteric Ears: Positive for: Normal Mouth: Positive for: Dry. Negative for: Normal Teeth (missing dentition ) Pharnyx: Positive for: Normal. Negative for: ERYTHEMA, EXUDATE, TONSILS ENLARGED Neck: Positive for: Normal Range of Motion, Trachea Midline. Negative for: Meningeal Signs, JVD, Lymphadenopathy Respiratory/Chest: Positive for: Clear to Auscultation, Respiratory Distress, Accessory Muscle Use, Tachypneic. Negative for: Decreased Breath Sounds, Rales , Retracting, Rhonchi, Tender to Palpation Cardiovascular: Positive for: Normal S1, S2, Peripheal Pulses Present, Tachycardic. Negative for: Regular Rate and Rhythm, Murmurs, Irregular Rhythm, Rub, Gallop, Muffled Abdomen: Positive for: Normal Bowel Sounds. Negative for: Tenderness, Distention, Peritoneal Signs Upper Extremity: Positive for: Normal Inspection, Capillary Refill < 2s. Negative for: Cyanosis, Edema Lower Extremity: Positive for: Normal Inspection, NORMAL PULSES, Neurovascularly Intact, Capillary Refill < 2 s. Negative for: Edema, CALF TENDERNESS, Swelling, Erythema, Temperature Abnormalties Neurological: Positive for: Motor Func Grossly Intact, Other (intermittent decerebrate posturing, less frequent today. +corneal reflex today). Negative for: GCS=15 (GCS: 9), CN II-XII Intact, Speech Normal (unable to evaluate ), Normal Sensory Function, Normal Cerebellar Funct, Norm Deep Tendon Reflexes ( asymmetric rigidity with brisk reflexes b/l, improved ) Skin: Positive for: Warm, Dry. Negative for: Normal Color (vitiligo?, chronic skin changes from weather exposure and recurrent friction/trauma ), Laceration Lymphatic: Negative for: Cervical Adenopathy Psychiatric: Positive for: Other (comatose). Negative for: Alert, Oriented x 3 , Normal Insight, Normal Concentration - Medications Active Medications: Active Medications Generic Name Dose Route Start Last Admin Trade Name Freq PRN Reason Stop Dose Admin Acetaminophen 650 mg 11/16/17 23:44 11/18/17 02:35 Tylenol 650 Mg Supp SC 650 mg Q6 PRN Administration Fever >100.4 F Amantadine HCl 100 mg 11/17/17 17:00 11/19/17 08:39 Amantadine 100 Mg Cap PO 100 mg BID [facility] Administration Aspirin 81 mg 11/19/17 09:00 11/19/17 08:40 Aspirin Chewable NG 81 mg DAILY [facility] Administration Atorvastatin Calcium 40 mg 11/17/17 22:00 11/18/17 21:13 Lipitor PO 40 mg HS [facility] Administration Clopidogrel Bisulfate 75 mg 11/18/17 09:45 11/19/17 08:40 Plavix NG 75 mg DAILY [facility] Administration Enoxaparin Sodium 40 mg 11/16/17 09:00 11/19/17 08:40 Lovenox SC 40 mg DAILY [facility] Administration Protocol Folic Acid 1 mg 11/17/17 09:00 11/19/17 08:40 Folic Acid GT 1 mg DAILY [facility] Administration Vancomycin HCl 1 gm/ Sodium 250 mls @ 166.667 mls/hr 11/16/17 15:30 11/19/17 08:44 Chloride IVPB 166.667 mls/hr DAILY [facility] Administration Protocol Piperacillin Sod/Tazobactam 100 mls @ 100 mls/hr 11/17/17 17:00 11/19/17 08: 42 Sod 3.375 gm/ Sodium Chloride IVPB 100 mls/hr Q8 [facility] Administration Protocol Pantoprazole Sodium 40 mg 11/19/17 09:00 11/19/17 08:40 Protonix Susp NG 40 mg DAILY [facility] Administration Thiamine HCl 100 mg 11/17/17 13:45 11/19/17 08:41 Vitamin B1 Tab NG 100 mg DAILY [facility] Administration - Patient Studies Lab Studies: Microbiology Studies 11/16/17 12:20 Gram Stain - Final Sputum Sputum Culture - Final NORMAL ORAL FRANCES 11/16/17 11:40 Urine Culture - Preliminary Urine,[place] Gram Positive Cocci 11/17/17 04:30 Blood Culture - Preliminary Blood-Venous NO GROWTH AFTER 48 HOURS 11/17/17 04:40 Blood Culture - Preliminary Blood-Venous NO GROWTH AFTER 48 HOURS Lab Studies 11/19/17 11/19/17 11/19/17 Range/Units 04:58 04:32 04:32 WBC 7.9 (4.8-10.8) K/uL RBC 3.71 L (4.40-5.90) Mil/uL Hgb 11.3 L (12.0-18.0) g/dL Hct 34.3 L (35.0-51.0) % MCV 92.4 (80.0-94.0) fl MCH 30.5 (27.0-31.0) pg MCHC 33.0 (33.0-37.0) g/dL RDW 15.1 H (11.5-14.5) % Plt Count 149 (130-400) K/uL pCO2 38 (35-45) mm/Hg pO2 74 L (80-100) mm/Hg HCO3 26.1 (21-28) mmol/L ABG pH 7.44 (7.35-7.45) ABG Total CO2 27.0 (22-28) mmol/L ABG O2 Saturation 97.1 (95-98) % ABG O2 Content 14.7 L (15-23) ML/dL ABG Base Excess 1.6 (-2.0-3.0) mmol/L ABG Hemoglobin 11.0 L (11.7-17.4) g/dL ABG Carboxyhemoglobin 1.3 (0.5-1.5) % POC ABG HHb (Measured) 2.8 (0.0-5.0) % ABG Methemoglobin 1.0 (0.0-3.0) % ABG O2 Capacity 15.1 L (16-24) mL/dL Roberto Test Yes A-a O2 Difference 164.0 mm/Hg Hgb O2 Saturation 94.8 L (95.0-98.0) % Vent Mode Prvc/ac Mechanical Rate 16 FiO2 40.0 % Tidal Volume 450 PEEP 5 Sodium 146 (132-148) mmol/l Potassium 3.4 L (3.6-5.0) MMOL/L Chloride 108 H (98-107) mmol/L Carbon Dioxide 25 (22-30) mmol/L Anion Gap 16 (10-20) BUN 15 (9-20) mg/dl Creatinine 0.6 L (0.8-1.5) mg/dl Est GFR ( Amer) > 60 Est GFR (Non-Af Amer) > 60 Random Glucose 115 H (75-110) mg/dL Calcium 7.7 L (8.4-10.2) mg/dL HSV I IgG Ab index HSV II IgG index 11/17/17 Range/Units 09:55 WBC (4.8-10.8) K/uL RBC (4.40-5.90) Mil/uL Hgb (12.0-18.0) g/dL Hct (35.0-51.0) % MCV (80.0-94.0) fl MCH (27.0-31.0) pg MCHC (33.0-37.0) g/dL RDW (11.5-14.5) % Plt Count (130-400) K/uL pCO2 (35-45) mm/Hg pO2 (80-100) mm/Hg HCO3 (21-28) mmol/L ABG pH (7.35-7.45) ABG Total CO2 (22-28) mmol/L ABG O2 Saturation (95-98) % ABG O2 Content (15-23) ML/dL ABG Base Excess (-2.0-3.0) mmol/L ABG Hemoglobin (11.7-17.4) g/dL ABG Carboxyhemoglobin (0.5-1.5) % POC ABG HHb (Measured) (0.0-5.0) % ABG Methemoglobin (0.0-3.0) % ABG O2 Capacity (16-24) mL/dL Roberto Test A-a O2 Difference mm/Hg Hgb O2 Saturation (95.0-98.0) % Vent Mode Mechanical Rate FiO2 % Tidal Volume PEEP Sodium (132-148) mmol/l Potassium (3.6-5.0) MMOL/L Chloride (98-107) mmol/L Carbon Dioxide (22-30) mmol/L Anion Gap (10-20) BUN (9-20) mg/dl Creatinine (0.8-1.5) mg/dl Est GFR ( Amer) Est GFR (Non-Af Amer) Random Glucose (75-110) mg/dL Calcium (8.4-10.2) mg/dL HSV I IgG Ab 26.40 H index HSV II IgG <0.90 index Laboratory Results - last 24 hr 11/17/17 11/19/17 11/19/17 09:55 04:32 04:32 WBC 7.9 RBC 3.71 L Hgb 11.3 L Hct 34.3 L MCV 92.4 MCH 30.5 MCHC 33.0 RDW 15.1 H Plt Count 149 pCO2 pO2 HCO3 ABG pH ABG Total CO2 ABG O2 Saturation ABG O2 Content ABG Base Excess ABG Hemoglobin ABG Carboxyhemoglobin POC ABG HHb (Measured) ABG Methemoglobin ABG O2 Capacity Roberto Test A-a O2 Difference Hgb O2 Saturation Vent Mode Mechanical Rate FiO2 Tidal Volume PEEP Sodium 146 Potassium 3.4 L Chloride 108 H Carbon Dioxide 25 Anion Gap 16 BUN 15 Creatinine 0.6 L Est GFR ( Amer) > 60 Est GFR (Non-Af Amer) > 60 Random Glucose 115 H Calcium 7.7 L HSV I IgG Ab 26.40 H HSV II IgG <0.90 11/19/17 04:58 WBC RBC Hgb Hct MCV MCH MCHC RDW Plt Count pCO2 38 pO2 74 L HCO3 26.1 ABG pH 7.44 ABG Total CO2 27.0 ABG O2 Saturation 97.1 ABG O2 Content 14.7 L ABG Base Excess 1.6 ABG Hemoglobin 11.0 L ABG Carboxyhemoglobin 1.3 POC ABG HHb (Measured) 2.8 ABG Methemoglobin 1.0 ABG O2 Capacity 15.1 L Roberto Test Yes A-a O2 Difference 164.0 Hgb O2 Saturation 94.8 L Vent Mode Prvc/ac Mechanical Rate 16 FiO2 40.0 Tidal Volume 450 PEEP 5 Sodium Potassium Chloride Carbon Dioxide Anion Gap BUN Creatinine Est GFR ( Amer) Est GFR (Non-Af Amer) Random Glucose Calcium HSV I IgG Ab HSV II IgG Fingerstick Blood Sugar Results: 108 Review of Systems - Review of Systems Systems not reviewed;Unavailable: Altered Mental Status Critical Care Progress Note - Nutrition Nutrition: Nutrition Category Date Time Status NPO Diet [DIET] Diets 11/15/17 Lunch Active Assessment/Plan (1) Ischemic stroke Assessment and plan: Patient is off all sedation as still comatose. acute respiratory failure on vent. continue tube feeds. unlikely recovery. Awaiting investigation into his identity. Critical Care time 35 minutes Current Visit: Yes Status: Acute
[2017-11-19] MEDS ORDERED: Potassium Ch 20mEq in D5-1/2NS 1,000 ML IV SCH (21:00)
[2017-11-20] MEDS: Piperacillin/Tazobact 3.375 GM in Sodium Chloride 0.9% 100 ML IVPB SCH ×3 (00:33→17:06)
[2017-11-20 04:21] LABS: ABG ALLEN TEST YES; ARTERIAL BLOOD GAS HCO3 28.1 mmol/L (21-28); ARTERIAL BLOOD GAS HEMOGLOBIN 11.1 g/dL (11.7-17.4); ARTERIAL BLOOD GAS O2 CAPACITY 15.6 mL/dL (16-24); ARTERIAL BLOOD GAS O2 CONTENT 15.4 ML/dL (15-23); ARTERIAL BLOOD GAS O2 SAT 98.9 % (95-98); ARTERIAL BLOOD GAS PCO2 35 mm/Hg (35-45); ARTERIAL BLOOD GAS PO2 141 mm/Hg (80-100); ARTERIAL BLOOD GAS TCO2 28.4 mmol/L (22-28)
[2017-11-20 04:55] LABS: HEMOGLOBIN 11.3 g/dL (12.0-18.0); MEAN CELL VOLUME 92.8 fl (80.0-94.0); MEAN CORPUSCULAR HEMOGLOBIN 30.6 pg (27.0-31.0); MEAN CORPUSCULAR HGB CONC 32.9 g/dL (33.0-37.0); RBC 3.7 Mil/uL (4.40-5.90); WHITE BLOOD COUNT 7.7 K/uL (4.8-10.8)
[2017-11-20 05:17] LABS: BLOOD UREA NITROGEN 10 mg/dl (9-20); CALCIUM 7.7 mg/dL (8.4-10.2); GFR AFRICAN-AMERICAN > 60; GFR NON-AFRICAN AMERICAN > 60
--- NOTE | 2017-11-20 07:55 | RAD ---
HISTORY: intubated COMPARISON: 11/18/2017 FINDINGS: LUNGS: Bilateral interstitial infiltrates with consolidation at the left base. PLEURA: No significant pleural effusion identified, no pneumothorax apparent. CARDIOVASCULAR: Normal. OSSEOUS STRUCTURES: No significant abnormalities. VISUALIZED UPPER ABDOMEN: Normal. OTHER FINDINGS: ETT above the haresh. IMPRESSION: Bilateral interstitial infiltrates with consolidation at the left base. Findings worsened since prior exam.
--- NOTE | 2017-11-20 07:56 | RAD ---
PROCEDURE: CHEST RADIOGRAPH, 1 VIEW HISTORY: intubated COMPARISON: 11/19/2017 FINDINGS: LUNGS: Diffuse bilateral interstitial infiltrates, unchanged from prior exam. PLEURA: No pneumothorax or pleural fluid seen. CARDIOVASCULAR: Normal. OSSEOUS STRUCTURES: No significant abnormalities. VISUALIZED UPPER ABDOMEN: Normal. OTHER FINDINGS: ETT above the haresh. IMPRESSION: Diffuse bilateral interstitial infiltrates, unchanged from prior exam.
--- NOTE | 2017-11-20 08:33 | CP.PCM.PN ---
Subjective - Date & Time of Evaluation Date of Evaluation: 11/20/17 Time of Evaluation: 08:33 - Subjective Subjective: Mr. White was seen and examined at the bedside in ICU. He remains on mechanical ventilator on PRVC mode. His pupils are sluggishly reactive to light accommodation, + gag reflex, withdraws from pain stimuli, GCS-4T. He is tolerating his NGT feedings. There was no untoward events overnight. Objective - Vital Signs/Intake and Output Vital Signs (last 24 hours): Temp Pulse Resp BP Pulse Ox 99.5 F 81 18 139/77 100 11/20/17 07:31 11/20/17 07:31 11/20/17 07:31 11/20/17 07:31 11/20/17 07:31 Intake and Output: 11/20/17 11/20/17 06:59 18:59 Intake Total 2200 280 Output Total 700 Balance 1500 280 - Medications Medications: Current Medications Acetaminophen (Tylenol 650 Mg Supp) 650 mg ID Q6 PRN PRN Reason: Fever >100.4 F Last Admin: 11/19/17 19:40 Dose: 650 mg Amantadine HCl (Amantadine 100 Mg Cap) 100 mg PO BID [facility] Last Admin: 11/19/17 17:22 Dose: 100 mg Aspirin (Aspirin Chewable) 81 mg NG DAILY [facility] Last Admin: 11/19/17 08:40 Dose: 81 mg Atorvastatin Calcium (Lipitor) 40 mg PO HS [facility] Last Admin: 11/19/17 21:13 Dose: 40 mg Clopidogrel Bisulfate (Plavix) 75 mg NG DAILY [facility] Last Admin: 11/19/17 08:40 Dose: 75 mg Enoxaparin Sodium (Lovenox) 40 mg SC DAILY [facility] PRN Reason: Protocol Last Admin: 11/19/17 08:40 Dose: 40 mg Folic Acid (Folic Acid) 1 mg GT DAILY [facility] Last Admin: 11/19/17 08:40 Dose: 1 mg Vancomycin HCl 1 gm/ Sodium (Chloride) 250 mls @ 166.667 mls/hr IVPB DAILY [facility] PRN Reason: Protocol Last Admin: 11/19/17 08:44 Dose: 166.667 mls/hr Piperacillin Sod/Tazobactam (Sod 3.375 gm/ Sodium Chloride) 100 mls @ 100 mls/ hr IVPB Q8 [facility] PRN Reason: Protocol Last Admin: 11/20/17 00:33 Dose: 100 mls/hr Potassium Chloride/Dextrose/Sod Cl (Potassium Chl 20 Meq In D5-1/2ns) 1,000 mls @ 80 mls/hr IV .[id number] [facility] Stop: 11/20/17 09:29 Last Admin: 11/19/17 21:43 Dose: 80 mls/hr Pantoprazole Sodium (Protonix Susp) 40 mg NG DAILY [facility] Last Admin: 11/19/17 08:40 Dose: 40 mg Thiamine HCl (Vitamin B1 Tab) 100 mg NG DAILY [facility] Last Admin: 11/19/17 08:41 Dose: 100 mg - Labs Labs: 11/20/17 04:21 11/20/17 04:21 PT 11.6 Seconds (9.8-13.1) 11/15/17 08:15 INR 1.0 (0.9-1.2) 11/15/17 08:15 APTT 29.7 Seconds (25.6-37.1) 11/15/17 08:15 - Constitutional Appears: No Acute Distress - Head Exam Head Exam: NORMAL INSPECTION - Eye Exam Pupil Exam: Miosis, PERRL Additional comments: bilateral 2 mm - Neurological Exam Neuro motor strength exam: Left Upper Extremity: 0, Right Upper Extremity: 0, Left Lower Extremity: 0, Right Lower Extremity: 0 Additional comments: GCS-4T Assessment and Plan (1) Ischemic stroke Assessment & Plan: Case discussed with Dr. Mcneill, continue all current medical regimen. Pending results of EEG. Status: Acute
[2017-11-20] MEDS: Enoxaparin 40 mg Syringe SC SCH (08:36)
[2017-11-20] MEDS: Pantoprazole 40 mg Susp UD NG SCH (08:36)
--- NOTE | 2017-11-20 09:12 | CP.PCM.PN ---
Subjective - Date & Time of Evaluation Date of Evaluation: 11/20/17 Time of Evaluation: 08:00 - Subjective Subjective: Patient was seen at bedside. Patient continues to be intubated. continues to be on A/C 16/40%/450/PEEP +5 Hemodynamically stable, afebrile over last 36 hours T 99.5, P 71, 139/77, RR 18 AB.5/35/141/28.1 Objective - Vital Signs/Intake and Output Vital Signs (last 24 hours): Temp Pulse Resp BP Pulse Ox 99.5 F 81 18 139/77 100 11/20/17 07:31 11/20/17 07:31 11/20/17 07:31 11/20/17 07:31 11/20/17 07:31 Intake and Output: 11/20/17 11/20/17 06:59 18:59 Intake Total 2200 280 Output Total 700 Balance 1500 280 - Medications Medications: Current Medications Acetaminophen (Tylenol 650 Mg Supp) 650 mg [place] Q6 PRN PRN Reason: Fever >100.4 F Last Admin: 11/19/17 19:40 Dose: 650 mg Amantadine HCl (Amantadine 100 Mg Cap) 100 mg PO BID [facility] Last Admin: 11/20/17 08:33 Dose: 100 mg Aspirin (Aspirin Chewable) 81 mg NG DAILY [facility] Last Admin: 11/20/17 08:33 Dose: 81 mg Atorvastatin Calcium (Lipitor) 40 mg PO HS [facility] Last Admin: 11/19/17 21:13 Dose: 40 mg Clopidogrel Bisulfate (Plavix) 75 mg NG DAILY [facility] Last Admin: 11/20/17 08:33 Dose: 75 mg Enoxaparin Sodium (Lovenox) 40 mg SC DAILY [facility] PRN Reason: Protocol Last Admin: 11/20/17 08:36 Dose: 40 mg Folic Acid (Folic Acid) 1 mg GT DAILY [facility] Last Admin: 11/20/17 08:33 Dose: 1 mg Vancomycin HCl 1 gm/ Sodium (Chloride) 250 mls @ 166.667 mls/hr IVPB DAILY [facility] PRN Reason: Protocol Last Admin: 11/20/17 08:34 Dose: 166.667 mls/hr Piperacillin Sod/Tazobactam (Sod 3.375 gm/ Sodium Chloride) 100 mls @ 100 mls/ hr IVPB Q8 [facility] PRN Reason: Protocol Last Admin: 11/20/17 08:35 Dose: 100 mls/hr Potassium Chloride/Dextrose/Sod Cl (Potassium Chl 20 Meq In D5-1/2ns) 1,000 mls @ 80 mls/hr IV .[id number] [facility] Stop: 11/20/17 09:29 Last Admin: 11/19/17 21:43 Dose: 80 mls/hr Pantoprazole Sodium (Protonix Susp) 40 mg NG DAILY [facility] Last Admin: 11/20/17 08:36 Dose: 40 mg Thiamine HCl (Vitamin B1 Tab) 100 mg NG DAILY [facility] Last Admin: 11/20/17 08:33 Dose: 100 mg - Labs Labs: 11/20/17 04:21 11/20/17 04:21 PT 11.6 Seconds (9.8-13.1) 11/15/17 08:15 INR 1.0 (0.9-1.2) 11/15/17 08:15 APTT 29.7 Seconds (25.6-37.1) 11/15/17 08:15 - Additional Findings Additional findings: Physical exam: Constitutional- intubated, not sedated, unresponsive Head- NCAT, PERRL Eye- Pupils equil bilaterally, 2mm, sluggish ENT- + ET tube. nasal mucosa moist Neck- normal inspection, supple, no JVD Respiratory- CTAB, no wheezes rales rhonchi Cardiovascular- RRR, +S1, +S2 no MRG GI/Abdominal- normal bowel sounds, soft, no mass, no hsm Skin- warm, dry Extremities Exam- Right foot calluses. Lower extremity hypopigmentation bilaterally. bilateral hips show laterally hypopigmented areas. normal capillary refill, normal inspection Assessment and Plan - Assessment and Plan (Free Text) Plan: Assessment: White male , Tez White , unkempt, unknown PMH was broughtby EMS after he was observed by bystanders falling in the street. Patient was lethargic on admission however arousable , noted to have a facial droop and his speech was slurred. CT of head : Moderate to significant diffuse/confluent chronic white matter ischemic changes seen extending from the periventricular into the subcortical regions bilaterally. Changes are most pronounced in the parietal lobes. In addition, there are scattered chronic bilateral basal nuclei lacunar type infarcts. Small lacunar type infarcts also seen both cerebellar hemispheres. Note that the possibility of a small hyperacute infarct cannot be excluded on this study. Clinical correlation recommended. Marked dilatation of the atria and occipital horns possibly secondary to central volume loss on which is above most pronounced in the temporal occipital and parietal watershed zone regions On 11/16 noted to be obtunded ,unable to clear his secretions, tachypneic and saturation in the 80%. He was transferred to ICU and intubated for airway protection. Repeat CT of head showed no change.MRI showed pontine, midbrain, cerebellar hemispheres and thalami infarct. Patient is intubated , unresponsive , with decerebrated movement to upper extremities and brisk reflexes. No changes overnight Afebrile x 36 hours, urine growing gram positive Cocci WBC 7.7, normal since 1. Encephalopathy / AMS secondary to acute CVA MRI brain showed pontine , midbrain, cerebellar hemispheres and thalamic infarct patient intubated , unresponsive , gag and cornea reflexes present , breathing over the vent Neurology on consult Continue ASA, Statin, Plavix and Amantadine Vent management Permissive hypertension OGT feeding guarded prognosis 2. Acute Respiratory failure due to Altered Level of consciousness and CVA Breathing over the vent intubated on MV CXR showed no infiltrates Thick secretions suctioned during intubation and with greenish secretions at present afterwards Started Vanco , Zosyn IV empirically for possible URI since patient had elevated WBC count and is febrile Sputum Cx , blood cx with no growth WBC trending down fromn 22 K -- 7.8 K Tmax 100 Keep HOB elevated and respiratory toilet with frequent suctioning 3.HTN (hypertension) Chronic allow for permissive HTN for now 4. UTI urine cx positive for gram positive Cocci Continue vanco 5. ? Alcoholism unclear if alcoholic, cannot obtain hx however ED note stated that pateint has history of ETOH ETOH level low urine Tox : neg Thiamine and FA watch for active withdrawal sxs 6.DVT prophylaxis Acute Lovenox
--- NOTE | 2017-11-20 12:07 | CP.CCUPN ---
CCU Subjective - Physician Review Events Since Last Encounter (Free Text): 11/20/17 12:03 comatose, no improvemet. CCU Objective - Vital Signs / Intake & Output Vital Signs (Last 4 hours): Vital Signs Pulse Resp BP Pulse Ox 11/20/17 10:00 83 19 138/80 99 Intake and Output (Last 8hrs): Intake & Output 11/19/17 11/20/17 11/20/17 22:59 06:59 14:59 Intake Total 1425 1520 710 Output Total 800 700 Balance 625 820 710 Intake: IV 505 640 320 Intake, Piggyback 200 100 Tube Feeding 420 480 240 Free Water Flush 300 300 150 Output: Urine 800 700 2-way Urethral 800 700 - Physical Exam Head: Positive for: Atraumatic, Normocephalic. Negative for: Ecchymosis, Abrasion, Laceration Pupils: Positive for: Sluggish Extroacular Muscles: Negative for: EOMI, Gaze Palsy Conjunctiva: Positive for: Normal. Negative for: Injected, Icteric Ears: Positive for: Normal Mouth: Positive for: Dry. Negative for: Normal Teeth (missing dentition ) Pharnyx: Positive for: Normal. Negative for: ERYTHEMA, EXUDATE, TONSILS ENLARGED Neck: Positive for: Normal Range of Motion, Trachea Midline. Negative for: Meningeal Signs, JVD, Lymphadenopathy Respiratory/Chest: Positive for: Clear to Auscultation, Respiratory Distress, Accessory Muscle Use, Tachypneic. Negative for: Decreased Breath Sounds, Rales , Retracting, Rhonchi, Tender to Palpation Cardiovascular: Positive for: Normal S1, S2, Peripheal Pulses Present, Tachycardic. Negative for: Regular Rate and Rhythm, Murmurs, Irregular Rhythm, Rub, Gallop, Muffled Abdomen: Positive for: Normal Bowel Sounds. Negative for: Tenderness, Distention, Peritoneal Signs Upper Extremity: Positive for: Normal Inspection, Capillary Refill < 2s. Negative for: Cyanosis, Edema Lower Extremity: Positive for: Normal Inspection, NORMAL PULSES, Neurovascularly Intact, Capillary Refill < 2 s. Negative for: Edema, CALF TENDERNESS, Swelling, Erythema, Temperature Abnormalties Neurological: Positive for: Motor Func Grossly Intact, Other (intermittent decerebrate posturing, less frequent today. +corneal reflex today). Negative for: GCS=15 (GCS: 9), CN II-XII Intact, Speech Normal (unable to evaluate ), Normal Sensory Function, Normal Cerebellar Funct, Norm Deep Tendon Reflexes ( asymmetric rigidity with brisk reflexes b/l, improved ) Skin: Positive for: Warm, Dry. Negative for: Normal Color (vitiligo?, chronic skin changes from weather exposure and recurrent friction/trauma ), Laceration Lymphatic: Negative for: Cervical Adenopathy Psychiatric: Positive for: Other (comatose). Negative for: Alert, Oriented x 3 , Normal Insight, Normal Concentration - Medications Active Medications: Active Medications Generic Name Dose Route Start Last Admin Trade Name Freq PRN Reason Stop Dose Admin Acetaminophen 650 mg 11/16/17 23:44 11/19/17 19:40 Tylenol 650 Mg Supp [place] 650 mg Q6 PRN Administration Fever >100.4 F Amantadine HCl 100 mg 11/17/17 17:00 11/20/17 08:33 Amantadine 100 Mg Cap PO 100 mg BID [facility] Administration Aspirin 81 mg 11/19/17 09:00 11/20/17 08:33 Aspirin Chewable NG 81 mg DAILY [facility] Administration Atorvastatin Calcium 40 mg 11/17/17 22:00 11/19/17 21:13 Lipitor PO 40 mg HS [facility] Administration Clopidogrel Bisulfate 75 mg 11/18/17 09:45 11/20/17 08:33 Plavix NG 75 mg DAILY [facility] Administration Enoxaparin Sodium 40 mg 11/16/17 09:00 11/20/17 08:36 Lovenox SC 40 mg DAILY [facility] Administration Protocol Folic Acid 1 mg 11/17/17 09:00 11/20/17 08:33 Folic Acid GT 1 mg DAILY [facility] Administration Vancomycin HCl 1 gm/ Sodium 250 mls @ 166.667 mls/hr 11/16/17 15:30 11/20/17 08:34 Chloride IVPB 166.667 mls/hr DAILY [facility] Administration Protocol Piperacillin Sod/Tazobactam 100 mls @ 100 mls/hr 11/17/17 17:00 11/20/17 08: 35 Sod 3.375 gm/ Sodium Chloride IVPB 100 mls/hr Q8 [facility] Administration Protocol Pantoprazole Sodium 40 mg 11/19/17 09:00 11/20/17 08:36 Protonix Susp NG 40 mg DAILY [facility] Administration Thiamine HCl 100 mg 11/17/17 13:45 11/20/17 08:33 Vitamin B1 Tab NG 100 mg DAILY [facility] Administration - Patient Studies Lab Studies: Microbiology Studies 11/16/17 11:40 Urine Culture - Preliminary Urine,[place] Streptococcus Viridans 11/17/17 04:30 Blood Culture - Preliminary Blood-Venous NO GROWTH AFTER 3 DAYS 11/17/17 04:40 Blood Culture - Preliminary Blood-Venous NO GROWTH AFTER 3 DAYS 11/16/17 12:20 Gram Stain - Final Sputum Sputum Culture - Final NORMAL ORAL FRANCES Lab Studies 11/20/17 11/20/17 11/20/17 Range/Units 04:21 04:21 04:00 WBC 7.7 (4.8-10.8) K/uL RBC 3.70 L (4.40-5.90) Mil/uL Hgb 11.3 L (12.0-18.0) g/dL Hct 34.3 L (35.0-51.0) % MCV 92.8 (80.0-94.0) fl MCH 30.6 (27.0-31.0) pg MCHC 32.9 L (33.0-37.0) g/dL RDW 15.0 H (11.5-14.5) % Plt Count 169 (130-400) K/uL pCO2 35 (35-45) mm/Hg pO2 141 H (80-100) mm/Hg HCO3 28.1 H (21-28) mmol/L ABG pH 7.50 H (7.35-7.45) ABG Total CO2 28.4 H (22-28) mmol/L ABG O2 Saturation 98.9 H (95-98) % ABG O2 Content 15.4 (15-23) ML/dL ABG Base Excess 4.1 H (-2.0-3.0) mmol/L ABG Hemoglobin 11.1 L (11.7-17.4) g/dL ABG Carboxyhemoglobin 1.0 (0.5-1.5) % POC ABG HHb (Measured) 1.1 (0.0-5.0) % ABG Methemoglobin 0.9 (0.0-3.0) % ABG O2 Capacity 15.6 L (16-24) mL/dL Roberto Test Yes A-a O2 Difference 100.0 mm/Hg Hgb O2 Saturation 97.0 (95.0-98.0) % Vent Mode A/c Mechanical Rate 16 FiO2 40.0 % Tidal Volume 450 PEEP 5 Sodium 141 (132-148) mmol/l Potassium 3.6 (3.6-5.0) MMOL/L Chloride 104 (98-107) mmol/L Carbon Dioxide 27 (22-30) mmol/L Anion Gap 14 (10-20) BUN 10 (9-20) mg/dl Creatinine 0.6 L (0.8-1.5) mg/dl Est GFR ( Amer) > 60 Est GFR (Non-Af Amer) > 60 Random Glucose 135 H (75-110) mg/dL Calcium 7.7 L (8.4-10.2) mg/dL Laboratory Results - last 24 hr 11/20/17 11/20/17 11/20/17 04:00 04:21 04:21 WBC 7.7 RBC 3.70 L Hgb 11.3 L Hct 34.3 L MCV 92.8 MCH 30.6 MCHC 32.9 L RDW 15.0 H Plt Count 169 pCO2 35 pO2 141 H HCO3 28.1 H ABG pH 7.50 H ABG Total CO2 28.4 H ABG O2 Saturation 98.9 H ABG O2 Content 15.4 ABG Base Excess 4.1 H ABG Hemoglobin 11.1 L ABG Carboxyhemoglobin 1.0 POC ABG HHb (Measured) 1.1 ABG Methemoglobin 0.9 ABG O2 Capacity 15.6 L Roberto Test Yes A-a O2 Difference 100.0 Hgb O2 Saturation 97.0 Vent Mode A/c Mechanical Rate 16 FiO2 40.0 Tidal Volume 450 PEEP 5 Sodium 141 Potassium 3.6 Chloride 104 Carbon Dioxide 27 Anion Gap 14 BUN 10 Creatinine 0.6 L Est GFR ( Amer) > 60 Est GFR (Non-Af Amer) > 60 Random Glucose 135 H Calcium 7.7 L Fingerstick Blood Sugar Results: 108 Review of Systems - Review of Systems Systems not reviewed;Unavailable: Altered Mental Status Critical Care Progress Note - Nutrition Nutrition: Nutrition Category Date Time Status NPO Diet [DIET] Diets 11/15/17 Lunch Active Assessment/Plan (1) Ischemic stroke Assessment and plan: Patient is off all sedation as still comatose, s/p multiple CVA's. acute respiratory failure on vent. continue tube feeds. unlikely recovery. Awaiting investigation into his identity. Critical Care time 35 minutes Current Visit: Yes Status: Acute
[2017-11-20] MEDS ORDERED: Acetaminophen 650mg/20.3ml solution UD PO PRN (20:33)
[2017-11-20] MEDS: Acetaminophen 650mg/20.3ml solution UD PO PRN (21:47)
[2017-11-21] MEDS: Piperacillin/Tazobact 3.375 GM in Sodium Chloride 0.9% 100 ML IVPB SCH ×4 (03:02→21:19)
[2017-11-21] MEDS: Acetaminophen 650mg/20.3ml solution UD PO PRN ×3 (04:28→20:34)
[2017-11-21 05:17] LABS: ABG ALLEN TEST YES; ARTERIAL BLOOD GAS HCO3 28.3 mmol/L (21-28); ARTERIAL BLOOD GAS HEMOGLOBIN 12.1 g/dL (11.7-17.4); ARTERIAL BLOOD GAS O2 CAPACITY 16.5 mL/dL (16-24); ARTERIAL BLOOD GAS O2 CONTENT 16.3 ML/dL (15-23); ARTERIAL BLOOD GAS O2 SAT 98.5 % (95-98); ARTERIAL BLOOD GAS PCO2 39 mm/Hg (35-45); ARTERIAL BLOOD GAS PH 7.47 (7.35-7.45); ARTERIAL BLOOD GAS PO2 85 mm/Hg (80-100); ARTERIAL BLOOD GAS TCO2 29.6 mmol/L (22-28)
[2017-11-21 06:36] LABS: HEMOGLOBIN 12.1 g/dL (12.0-18.0); MEAN CORPUSCULAR HEMOGLOBIN 30.3 pg (27.0-31.0); MEAN CORPUSCULAR HGB CONC 33.3 g/dL (33.0-37.0); RBC 3.99 Mil/uL (4.40-5.90); RED CELL DISTRIBUTION WIDTH 14.7 % (11.5-14.5); WHITE BLOOD COUNT 10.9 K/uL (4.8-10.8)
[2017-11-21 06:57] LABS: ALB/GLOB RATIO 0.9 (1.0-2.1); ALBUMIN 2.9 g/dL (3.5-5.0); ALT/SGPT 34 U/L (21-72); AST/SGOT 53 U/L (17-59); BLOOD UREA NITROGEN 9 mg/dl (9-20); CALCIUM 7.8 mg/dL (8.4-10.2); GFR AFRICAN-AMERICAN > 60; GFR NON-AFRICAN AMERICAN > 60
--- NOTE | 2017-11-21 08:49 | RAD ---
HISTORY: Intubated COMPARISON: Portable chest 11/20/2017. FINDINGS: Endotracheal and nasogastric tubes appear unchanged in position. LUNGS: Bilateral interstitial infiltrates appear diminished. There is persistent but also diminishing airspace disease the left base probably reflective of diminishing atelectasis. Clinically correlate further. PLEURA: No significant pleural effusion identified, no pneumothorax apparent. CARDIOVASCULAR: Cardiac silhouette remains prominent appearing with borderline pulmonary vascular congestion. OSSEOUS STRUCTURES: No significant abnormalities. VISUALIZED UPPER ABDOMEN: Normal. OTHER FINDINGS: None. IMPRESSION: Diminishing bilateral insert interstitial infiltrates with borderline pulmonary vascular congestion. Diminishing left basilar airspace disease.
--- NOTE | 2017-11-21 09:37 | CP.PCM.PN ---
Subjective - Date & Time of Evaluation Date of Evaluation: 11/21/17 Time of Evaluation: 09:37 - Subjective Subjective: Mr. White was seen and examined at the bedside in ICU. He remains on mechanical ventilator on PRVC mode. His pupils are miosis non-reactive to light accommodation, + gag reflex, withdraws from pain stimuli, but decelebrate which is a decline from previous examination. He used to raise his hand or feet to withdraw from pain, GCS-4T. He also breath over the set vent. settings. He is tolerating his NGT feedings. There was no untoward events overnight. Objective - Vital Signs/Intake and Output Vital Signs (last 24 hours): Temp Pulse Resp BP Pulse Ox 99.2 F 90 18 113/65 100 11/21/17 07:43 11/21/17 07:43 11/21/17 07:43 11/21/17 07:43 11/21/17 07:43 Intake and Output: 11/21/17 11/21/17 06:59 18:59 Intake Total 1250 Output Total 2000 Balance -750 - Medications Medications: Current Medications Acetaminophen (Tylenol 650mg/20.3ml Solution Ud) 650 mg PO Q6 PRN PRN Reason: Fever >100.4 Last Admin: 11/21/17 04:28 Dose: 650 mg Amantadine HCl (Amantadine 100 Mg Cap) 100 mg PO BID [facility] Last Admin: 11/20/17 17:06 Dose: 100 mg Aspirin (Aspirin Chewable) 81 mg NG DAILY [facility] Last Admin: 11/20/17 08:33 Dose: 81 mg Atorvastatin Calcium (Lipitor) 40 mg PO HS [facility] Last Admin: 11/20/17 21:48 Dose: 40 mg Clopidogrel Bisulfate (Plavix) 75 mg NG DAILY [facility] Last Admin: 11/20/17 08:33 Dose: 75 mg Enoxaparin Sodium (Lovenox) 40 mg SC DAILY [facility] PRN Reason: Protocol Last Admin: 11/20/17 08:36 Dose: 40 mg Folic Acid (Folic Acid) 1 mg GT DAILY [facility] Last Admin: 11/20/17 08:33 Dose: 1 mg Vancomycin HCl 1 gm/ Sodium (Chloride) 250 mls @ 166.667 mls/hr IVPB DAILY [facility] PRN Reason: Protocol Last Admin: 11/20/17 08:34 Dose: 166.667 mls/hr Piperacillin Sod/Tazobactam (Sod 3.375 gm/ Sodium Chloride) 100 mls @ 100 mls/ hr IVPB Q6 [facility] PRN Reason: Protocol Last Admin: 11/21/17 03:02 Dose: 100 mls/hr Pantoprazole Sodium (Protonix Susp) 40 mg NG DAILY [facility] Last Admin: 11/20/17 08:36 Dose: 40 mg Thiamine HCl (Vitamin B1 Tab) 100 mg NG DAILY [facility] Last Admin: 11/20/17 08:33 Dose: 100 mg - Labs Labs: 11/21/17 06:24 11/21/17 06:24 PT 11.6 Seconds (9.8-13.1) 11/15/17 08:15 INR 1.0 (0.9-1.2) 11/15/17 08:15 APTT 29.7 Seconds (25.6-37.1) 11/15/17 08:15 - Constitutional Appears: No Acute Distress - Head Exam Head Exam: NORMAL INSPECTION - Neurological Exam Neuro motor strength exam: Left Upper Extremity: 0, Right Upper Extremity: 0, Left Lower Extremity: 0, Right Lower Extremity: 0 Additional comments: GCS-4T Assessment and Plan (1) Ischemic stroke Assessment & Plan: Case discussed with DR. Price, continue all current medical regimen. Recommend to repeat CT scan of the head to evaluate any other brain pathology. Recommend head of bed elevated, blood pressure control, normothermic. Status: Acute
[2017-11-21] MEDS ORDERED: Potassium Chloride 20 mEq 100 ML IVPB ONE (09:45)
[2017-11-21] MEDS: Enoxaparin 40 mg Syringe SC SCH (09:50)
[2017-11-21] MEDS: Pantoprazole 40 mg Susp UD NG SCH (09:51)
[2017-11-21] MEDS ORDERED: Potassium Chloride 20 mEq/15 ml LIQ UD PO ONE (10:07)
--- NOTE | 2017-11-21 11:34 | CP.CCUPN ---
CCU Subjective - Physician Review Events Since Last Encounter (Free Text): 11/21/17 17:53 The patient was Seen/interviewed and examined by me at the bedside during ICU round, Medical records reviewed and Management issues were discussed and formulated with the house staff. Events reviewed Pt orally intubated and mechanically ventilated. PRVC AC16 TV450 FiO2 40% PEEP5. Afebrile, NSR on the monitor Comatosed, no improvement of mental status Pt Continued on IV Vanco and Zosyn Urine C/S positive for gram positive Cocci Sputum and blood C/S with no growth 11/21/17 18:00 11/21/2017: CT HEAD WITHOUT CONTRAST. IMPRESSION: Evolution of brain infarction is identified partially obscured at the brainstem and more obvious at the bilateral cerebral peduncle as well as small foci at both cerebellar hemispheres as discussed above. No intracranial hemorrhage or significant mass appreciable this at this time. Reiteration of age related neuro degenerative changes. 11/21/17 18:04 CCU Objective - Vital Signs / Intake & Output Vital Signs (Last 4 hours): Vital Signs Temp Pulse Resp BP Pulse Ox 11/21/17 07:43 99.2 F 90 18 113/65 100 Intake and Output (Last 8hrs): Intake & Output 11/20/17 11/21/17 11/21/17 22:59 06:59 14:59 Intake Total 760 980 Output Total 1300 2000 Balance -540 -1020 Intake: Intake, Piggyback 100 200 Tube Feeding 360 480 Free Water Flush 300 300 Output: Urine 1300 2000 2-way Urethral 1300 2000 - Physical Exam Head: Positive for: Atraumatic, Normocephalic. Negative for: Ecchymosis, Abrasion, Laceration Pupils: Positive for: Sluggish Extroacular Muscles: Negative for: EOMI, Gaze Palsy Conjunctiva: Positive for: Normal. Negative for: Injected, Icteric Ears: Positive for: Normal Mouth: Positive for: Dry. Negative for: Normal Teeth (missing dentition ) Pharnyx: Positive for: Normal. Negative for: ERYTHEMA, EXUDATE, TONSILS ENLARGED Neck: Positive for: Normal Range of Motion, Trachea Midline. Negative for: Meningeal Signs, JVD, Lymphadenopathy Respiratory/Chest: Positive for: Clear to Auscultation, Respiratory Distress, Accessory Muscle Use, Tachypneic. Negative for: Decreased Breath Sounds, Rales , Retracting, Rhonchi, Tender to Palpation Cardiovascular: Positive for: Normal S1, S2, Peripheal Pulses Present, Tachycardic. Negative for: Regular Rate and Rhythm, Murmurs, Irregular Rhythm, Rub, Gallop, Muffled Abdomen: Positive for: Normal Bowel Sounds. Negative for: Tenderness, Distention, Peritoneal Signs Upper Extremity: Positive for: Normal Inspection, Capillary Refill < 2s. Negative for: Cyanosis, Edema Lower Extremity: Positive for: Normal Inspection, NORMAL PULSES, Neurovascularly Intact, Capillary Refill < 2 s. Negative for: Edema, CALF TENDERNESS, Swelling, Erythema, Temperature Abnormalties Neurological: Positive for: Motor Func Grossly Intact, Other (intermittent decerebrate posturing, less frequent today. +corneal reflex today). Negative for: GCS=15 (GCS: 9), CN II-XII Intact, Speech Normal (unable to evaluate ), Normal Sensory Function, Normal Cerebellar Funct, Norm Deep Tendon Reflexes ( asymmetric rigidity with brisk reflexes b/l, improved ) Skin: Positive for: Warm, Dry. Negative for: Normal Color (vitiligo?, chronic skin changes from weather exposure and recurrent friction/trauma ), Laceration Lymphatic: Negative for: Cervical Adenopathy Psychiatric: Positive for: Other (comatose). Negative for: Alert, Oriented x 3 , Normal Insight, Normal Concentration - Medications Active Medications: Active Medications Generic Name Dose Route Start Last Admin Trade Name Freq PRN Reason Stop Dose Admin Acetaminophen 650 mg 11/20/17 21:14 11/21/17 04:28 Tylenol 650mg/20.3ml Solution Ud PO 650 mg Q6 PRN Administration Fever >100.4 Amantadine HCl 100 mg 11/17/17 17:00 11/21/17 09:50 Amantadine 100 Mg Cap PO 100 mg BID [facility] Administration Aspirin 81 mg 11/19/17 09:00 11/21/17 09:50 Aspirin Chewable NG 81 mg DAILY [facility] Administration Atorvastatin Calcium 40 mg 11/17/17 22:00 11/20/17 21:48 Lipitor PO 40 mg HS [facility] Administration Clopidogrel Bisulfate 75 mg 11/18/17 09:45 11/21/17 09:50 Plavix NG 75 mg DAILY [facility] Administration Folic Acid 1 mg 11/17/17 09:00 11/21/17 09:50 Folic Acid GT 1 mg DAILY [facility] Administration Vancomycin HCl 1 gm/ Sodium 250 mls @ 166.667 mls/hr 11/16/17 15:30 11/21/17 09:51 Chloride IVPB 166.667 mls/hr DAILY [facility] Administration Protocol Piperacillin Sod/Tazobactam 100 mls @ 100 mls/hr 11/21/17 04:00 11/21/17 09: 49 Sod 3.375 gm/ Sodium Chloride IVPB 100 mls/hr Q6 [facility] Administration Protocol Potassium Chloride 100 mls @ 50 mls/hr 11/21/17 09:45 Potassium Chloride 20 Meq/100 Ml IVPB 11/21/17 11:44 ONCE ONE Pantoprazole Sodium 40 mg 11/19/17 09:00 11/21/17 09:51 Protonix Susp NG 40 mg DAILY [facility] Administration Thiamine HCl 100 mg 11/17/17 13:45 11/21/17 09:50 Vitamin B1 Tab NG 100 mg DAILY [facility] Administration - Patient Studies Lab Studies: Microbiology Studies 11/16/17 11:40 Urine Culture - Final Urine,[place] Streptococcus Viridans 11/17/17 04:30 Blood Culture - Preliminary Blood-Venous NO GROWTH AFTER 4 DAYS 11/17/17 04:40 Blood Culture - Preliminary Blood-Venous NO GROWTH AFTER 4 DAYS 11/19/17 21:00 Blood Culture - Preliminary Blood-Venous NO GROWTH AFTER 24 HOURS 11/19/17 21:00 Blood Culture - Preliminary Blood-Venous NO GROWTH AFTER 24 HOURS Lab Studies 11/21/17 11/21/17 11/21/17 Range/Units 06:24 06:24 05:09 WBC 10.9 H (4.8-10.8) K/uL RBC 3.99 L (4.40-5.90) Mil/uL Hgb 12.1 (12.0-18.0) g/dL Hct 36.3 (35.0-51.0) % MCV 91.0 (80.0-94.0) fl MCH 30.3 (27.0-31.0) pg MCHC 33.3 (33.0-37.0) g/dL RDW 14.7 H (11.5-14.5) % Plt Count 213 (130-400) K/uL pCO2 39 (35-45) mm/Hg pO2 85 (80-100) mm/Hg HCO3 28.3 H (21-28) mmol/L ABG pH 7.47 H (7.35-7.45) ABG Total CO2 29.6 H (22-28) mmol/L ABG O2 Saturation 98.5 H (95-98) % ABG O2 Content 16.3 (15-23) ML/dL ABG Base Excess 4.4 H (-2.0-3.0) mmol/L ABG Hemoglobin 12.1 (11.7-17.4) g/dL ABG Carboxyhemoglobin 1.7 H (0.5-1.5) % POC ABG HHb (Measured) 1.5 (0.0-5.0) % ABG Methemoglobin 1.2 (0.0-3.0) % ABG O2 Capacity 16.5 (16-24) mL/dL Roberto Test Yes A-a O2 Difference 151.0 mm/Hg Hgb O2 Saturation 95.6 (95.0-98.0) % Vent Mode Prvc ac Mechanical Rate 16 FiO2 40.0 % Tidal Volume 450 PEEP 5 Sodium 135 (132-148) mmol/l Potassium 3.3 L (3.6-5.0) MMOL/L Chloride 99 (98-107) mmol/L Carbon Dioxide 28 (22-30) mmol/L Anion Gap 11 (10-20) BUN 9 (9-20) mg/dl Creatinine 0.6 L (0.8-1.5) mg/dl Est GFR ( Amer) > 60 Est GFR (Non-Af Amer) > 60 Random Glucose 138 H (75-110) mg/dL Calcium 7.8 L (8.4-10.2) mg/dL Total Bilirubin 0.6 (0.2-1.3) mg/dl AST 53 (17-59) U/L ALT 34 (21-72) U/L Alkaline Phosphatase 56 (38-126) U/L Total Protein 6.2 L (6.3-8.2) G/DL Albumin 2.9 L (3.5-5.0) g/dL Globulin 3.3 (2.2-3.9) gm/dL Albumin/Globulin Ratio 0.9 L (1.0-2.1) Laboratory Results - last 24 hr 11/21/17 11/21/17 11/21/17 05:09 06:24 06:24 WBC 10.9 H RBC 3.99 L Hgb 12.1 Hct 36.3 MCV 91.0 MCH 30.3 MCHC 33.3 RDW 14.7 H Plt Count 213 pCO2 39 pO2 85 HCO3 28.3 H ABG pH 7.47 H ABG Total CO2 29.6 H ABG O2 Saturation 98.5 H ABG O2 Content 16.3 ABG Base Excess 4.4 H ABG Hemoglobin 12.1 ABG Carboxyhemoglobin 1.7 H POC ABG HHb (Measured) 1.5 ABG Methemoglobin 1.2 ABG O2 Capacity 16.5 Roberto Test Yes A-a O2 Difference 151.0 Hgb O2 Saturation 95.6 Vent Mode Prvc ac Mechanical Rate 16 FiO2 40.0 Tidal Volume 450 PEEP 5 Sodium 135 Potassium 3.3 L Chloride 99 Carbon Dioxide 28 Anion Gap 11 BUN 9 Creatinine 0.6 L Est GFR ( Amer) > 60 Est GFR (Non-Af Amer) > 60 Random Glucose 138 H Calcium 7.8 L Total Bilirubin 0.6 AST 53 ALT 34 Alkaline Phosphatase 56 Total Protein 6.2 L Albumin 2.9 L Globulin 3.3 Albumin/Globulin Ratio 0.9 L Fingerstick Blood Sugar Results: 108 Critical Care Progress Note - Ventilator Checklist Head of Bed 30 Degrees: Yes Daily Sedation Vacation: Yes Daily Assessment of Readiness to Wean: Yes Daily Spontaneous Breathing Trial: Yes PUD Prophalyxis: Yes DVT Prophylaxis: Yes Oral Care with Chlorhexidine Gluconate {CHG}: Yes - Extremities/Vascular Does the Patient need a Central Venous Catheter?: No - Nutrition Nutrition: Nutrition Category Date Time Status NPO Diet [DIET] Diets 11/15/17 Lunch Active Assessment/Plan (1) Ischemic stroke Current Visit: Yes Status: Acute Comment: 11/21/2017: CT HEAD WITHOUT CONTRAST. IMPRESSION: Evolution of brain infarction is identified partially obscured at the brainstem and more obvious at the bilateral cerebral peduncle as well as small foci at both cerebellar hemispheres as discussed above. No intracranial hemorrhage or significant mass appreciable this at this time. Reiteration of age related neuro degenerative changes. (2) Acute metabolic encephalopathy Current Visit: Yes Status: Acute (3) Acute respiratory insufficiency Current Visit: Yes Status: Acute Comment: Patient intubated for airway protection, due to Altered Level of consciousness (4) Alcohol intoxication Current Visit: Yes Status: Acute (5) Altered mental status Current Visit: Yes Status: Acute Priority: High Comment: Comatosed, no improvement of mental status (6) UTI (urinary tract infection) Current Visit: Yes Status: Acute Comment: Continue IV Vanco and Zosyn Urine C/S positive for gram positive Cocci Sputum and blood C/S with no growth
--- NOTE | 2017-11-21 12:14 | CP.PCM.PN ---
Subjective - Date & Time of Evaluation Date of Evaluation: 11/21/17 Time of Evaluation: 11:00 - Subjective Subjective: Patient was seen and examined at bedside. Still has 2 mm pupils that are nonreactive to light. Decelebrate posturing. Responds to painful stimuli only. HD stable on ventilator at this time. No new events overnight. Unfortunately appears to be slowly declining from neurologic standpoint. PRVC A/C 16/40%/450/PEEP+5 Objective - Vital Signs/Intake and Output Vital Signs (last 24 hours): Temp Pulse Resp BP Pulse Ox 99.2 F 90 18 113/65 100 11/21/17 07:43 11/21/17 07:43 11/21/17 07:43 11/21/17 07:43 11/21/17 07:43 Intake and Output: 11/21/17 11/21/17 06:59 18:59 Intake Total 1250 Output Total 2000 Balance -750 - Medications Medications: Current Medications Acetaminophen (Tylenol 650mg/20.3ml Solution Ud) 650 mg PO Q6 PRN PRN Reason: Fever >100.4 Last Admin: 11/21/17 04:28 Dose: 650 mg Amantadine HCl (Amantadine 100 Mg Cap) 100 mg PO BID [facility] Last Admin: 11/21/17 09:50 Dose: 100 mg Aspirin (Aspirin Chewable) 81 mg NG DAILY [facility] Last Admin: 11/21/17 09:50 Dose: 81 mg Atorvastatin Calcium (Lipitor) 40 mg PO HS [facility] Last Admin: 11/20/17 21:48 Dose: 40 mg Clopidogrel Bisulfate (Plavix) 75 mg NG DAILY [facility] Last Admin: 11/21/17 09:50 Dose: 75 mg Folic Acid (Folic Acid) 1 mg GT DAILY [facility] Last Admin: 11/21/17 09:50 Dose: 1 mg Vancomycin HCl 1 gm/ Sodium (Chloride) 250 mls @ 166.667 mls/hr IVPB DAILY [facility] PRN Reason: Protocol Last Admin: 11/21/17 09:51 Dose: 166.667 mls/hr Piperacillin Sod/Tazobactam (Sod 3.375 gm/ Sodium Chloride) 100 mls @ 100 mls/ hr IVPB Q6 [facility] PRN Reason: Protocol Last Admin: 11/21/17 09:49 Dose: 100 mls/hr Pantoprazole Sodium (Protonix Susp) 40 mg NG DAILY [facility] Last Admin: 11/21/17 09:51 Dose: 40 mg Thiamine HCl (Vitamin B1 Tab) 100 mg NG DAILY [facility] Last Admin: 11/21/17 09:50 Dose: 100 mg - Labs Labs: 11/21/17 06:24 11/21/17 06:24 PT 11.6 Seconds (9.8-13.1) 11/15/17 08:15 INR 1.0 (0.9-1.2) 11/15/17 08:15 APTT 29.7 Seconds (25.6-37.1) 11/15/17 08:15 - Additional Findings Additional findings: Physical exam: Constitutional- intubated, not sedated, unresponsive. Decereberate Head- NCAT, PERRL Eye- Pupils equil bilaterally, 2mm, sluggish ENT- + ET tube. nasal mucosa moist Neck- normal inspection, supple, no JVD Respiratory- CTAB, no wheezes rales rhonchi Cardiovascular- RRR, +S1, +S2 no MRG GI/Abdominal- normal bowel sounds, soft, no mass, no hsm Skin- warm, dry Extremities Exam- Right foot calluses. Lower extremity hypopigmentation bilaterally. bilateral hips show laterally hypopigmented areas. normal capillary refill, normal inspection Assessment and Plan - Assessment and Plan (Free Text) Plan: Assessment: White male , Tez White , unkempt, unknown PMH was broughtby EMS after he was observed by bystanders falling in the street. Patient was lethargic on admission however arousable , noted to have a facial droop and his speech was slurred. CT of head : Moderate to significant diffuse/confluent chronic white matter ischemic changes seen extending from the periventricular into the subcortical regions bilaterally. Changes are most pronounced in the parietal lobes. In addition, there are scattered chronic bilateral basal nuclei lacunar type infarcts. Small lacunar type infarcts also seen both cerebellar hemispheres. Note that the possibility of a small hyperacute infarct cannot be excluded on this study. Clinical correlation recommended. Marked dilatation of the atria and occipital horns possibly secondary to central volume loss on which is above most pronounced in the temporal occipital and parietal watershed zone regions On 11/16 noted to be obtunded ,unable to clear his secretions, tachypneic and saturation in the 80%. He was transferred to ICU and intubated for airway protection. Repeat CT of head showed no change.MRI showed pontine, midbrain, cerebellar hemispheres and thalami infarct. Patient is intubated , unresponsive , with decerebrated movement to upper extremities and brisk reflexes. No changes overnight Afebrile x 36 hours, urine growing gram positive Cocci WBC 7.7, normal since 1. Encephalopathy / AMS secondary to acute CVA MRI brain showed pontine , midbrain, cerebellar hemispheres and thalamic infarct patient intubated , unresponsive , gag and cornea reflexes present , breathing over the vent Neurology on consult Continue ASA, Statin, Plavix and Amantadine Vent management Permissive hypertension OGT feeding guarded prognosis May need physician / ethics committee involved moving forward as we still do not have an ID on this patient and his mental state appears to be slowly worsening 2. Acute Respiratory failure due to Altered Level of consciousness and CVA Breathing over the vent intubated on MV CXR showed no infiltrates Thick secretions suctioned during intubation and with greenish secretions at present afterwards Started Vanco , Zosyn IV empirically for possible URI since patient had elevated WBC count and is febrile Sputum Cx , blood cx with no growth WBC trending down fromn 22 K -- 7.8 K Tmax 100 Keep HOB elevated and respiratory toilet with frequent suctioning 3.HTN (hypertension) Chronic allow for permissive HTN for now 4. UTI urine cx positive for gram positive Cocci Continue vanco 5. ? Alcoholism unclear if alcoholic, cannot obtain hx however ED note stated that pateint has history of ETOH ETOH level low urine Tox : neg Thiamine and FA watch for active withdrawal sxs 6.DVT prophylaxis Acute Lovenox
--- NOTE | 2017-11-21 12:17 | CT ---
PROCEDURE: CT HEAD WITHOUT CONTRAST. HISTORY: change of mental status COMPARISON: Unenhanced head CT 11/16/2017. TECHNIQUE: Axial computed tomography images were obtained through the head/brain without intravenous contrast. Radiation dose: Total exam DLP = 996.18 mGy-cm. This CT exam was performed using one or more of the following dose reduction techniques: Automated exposure control, adjustment of the mA and/or kV according to patient size, and/or use of iterative reconstruction technique. FINDINGS: HEMORRHAGE: No intracranial hemorrhage. BRAIN: Lucency is not excluded at the brainstem where there is tremendous artifact from the anterior skullbase obscuring in the lower keshia. Based on prior brain MRI 11/17/2017, evolution of brainstem infarction is identified which also includes a portion of the bilateral cerebral peduncle is. This on further review of brain MRI 11/17/2017. Lucency at the bilateral cerebellar hemispheres reflects multifocal small infarcts subacute to early chronic timeframe as well. Diffuse cerebral atrophy chronic microangiopathy are reiterated VENTRICLES: Unremarkable. No hydrocephalus. CALVARIUM: Unremarkable. PARANASAL SINUSES: . No suspicious extra-axial fluid collection. Unremarkable as visualized. No significant inflammatory changes. MASTOID AIR CELLS: Unremarkable as visualized. No inflammatory changes. OTHER FINDINGS: None. IMPRESSION: Evolution of brain infarction is identified partially obscured at the brainstem and more obvious at the bilateral cerebral peduncle as well as small foci at both cerebellar hemispheres as discussed above. No intracranial hemorrhage or significant mass appreciable this at this time. Reiteration of age related neuro degenerative changes.
[2017-11-22] MEDS: Piperacillin/Tazobact 3.375 GM in Sodium Chloride 0.9% 100 ML IVPB SCH ×5 (03:26→21:12)
[2017-11-22] MEDS: Acetaminophen 650mg/20.3ml solution UD PO PRN (03:54)
[2017-11-22 04:40] LABS: ABG ALLEN TEST YES; ARTERIAL BLOOD GAS HEMOGLOBIN 12.9 g/dL (11.7-17.4); ARTERIAL BLOOD GAS O2 CAPACITY 17.6 mL/dL (16-24); ARTERIAL BLOOD GAS O2 CONTENT 16.2 ML/dL (15-23); ARTERIAL BLOOD GAS O2 SAT 91.9 % (95-98); ARTERIAL BLOOD GAS PCO2 38 mm/Hg (35-45); ARTERIAL BLOOD GAS PH 7.42 (7.35-7.45); ARTERIAL BLOOD GAS PO2 56 mm/Hg (80-100); ARTERIAL BLOOD GAS TCO2 25.8 mmol/L (22-28)
[2017-11-22 06:03] LABS: HEMOGLOBIN 13.3 g/dL (12.0-18.0); MEAN CELL VOLUME 93.2 fl (80.0-94.0); MEAN CORPUSCULAR HEMOGLOBIN 30.3 pg (27.0-31.0); MEAN CORPUSCULAR HGB CONC 32.6 g/dL (33.0-37.0); RBC 4.38 Mil/uL (4.40-5.90); RED CELL DISTRIBUTION WIDTH 15.3 % (11.5-14.5)
[2017-11-22] MEDS ORDERED: Sodium Chloride 0.9% 500 ML IV ONE ×2 (06:13→07:49)
[2017-11-22] MEDS ORDERED: Sodium Chloride 0.9% 1,000 ML IV SCH (06:15)
[2017-11-22 06:23] LABS: BLOOD UREA NITROGEN 16 mg/dl (9-20); CALCIUM 8.3 mg/dL (8.4-10.2); GFR AFRICAN-AMERICAN > 60; GFR NON-AFRICAN AMERICAN 55
--- NOTE | 2017-11-22 07:44 | CP.PCM.PN ---
Subjective - Date & Time of Evaluation Date of Evaluation: 11/22/17 Time of Evaluation: 07:30 - Subjective Subjective: Patient seen and evaluated bedside. Intubated on MV PRVC / Ac mode . With episode of vomiting overnight with possible aspiration . OGT output with 700 ml gastric content ( non bilious ) .Becoming tachycardic , hypoxemic, hypotensive and febrile .Mottling noted to skin on the lower extremities Tmax 102.4 BP 79/54 HR 105 ABG 38/56/25/7.4 on 16/450/5/80 % . At present on vent settings 16/450/5/100 % He is comatose with pupils fixed and dilated , no cornea reflex, not withdrawing to pain, gag reflex present WBC 17 K Hgb 13 Plt 199 K urine cx positive for Strep viridans CXR -pending Poor prognosis Objective - Vital Signs/Intake and Output Vital Signs (last 24 hours): Temp Pulse Resp BP Pulse Ox 102.4 F H 110 H 23 79/54 L 97 11/22/17 04:00 11/22/17 06:00 11/22/17 06:00 11/22/17 06:00 11/22/17 06:00 Intake and Output: 11/22/17 11/22/17 06:59 18:59 Intake Total 880 Output Total 1700 Balance -820 - Medications Medications: Current Medications Acetaminophen (Tylenol 650mg/20.3ml Solution Ud) 650 mg PO Q6 PRN PRN Reason: Fever >100.4 Last Admin: 11/22/17 03:54 Dose: 650 mg Amantadine HCl (Amantadine 100 Mg Cap) 100 mg PO BID [facility] Last Admin: 11/21/17 17:13 Dose: 100 mg Aspirin (Aspirin Chewable) 81 mg NG DAILY [facility] Last Admin: 11/21/17 09:50 Dose: 81 mg Atorvastatin Calcium (Lipitor) 40 mg PO HS [facility] Last Admin: 11/21/17 21:40 Dose: 40 mg Clopidogrel Bisulfate (Plavix) 75 mg NG DAILY [facility] Last Admin: 11/21/17 09:50 Dose: 75 mg Folic Acid (Folic Acid) 1 mg GT DAILY [facility] Last Admin: 11/21/17 09:50 Dose: 1 mg Piperacillin Sod/Tazobactam (Sod 3.375 gm/ Sodium Chloride) 100 mls @ 100 mls/ hr IVPB Q6 [facility] PRN Reason: Protocol Last Admin: 11/22/17 03:26 Dose: 100 mls/hr Sodium Chloride (Sodium Chloride 0.9%) 1,000 mls @ 100 mls/hr IV .Q10H [facility] Stop: 11/22/17 16:14 Last Admin: 11/22/17 07:31 Dose: 100 mls/hr Vancomycin HCl 1 gm/ Sodium (Chloride) 250 mls @ 166.667 mls/hr IVPB DAILY [facility] PRN Reason: Protocol Pantoprazole Sodium (Protonix Susp) 40 mg NG DAILY [facility] Last Admin: 11/21/17 09:51 Dose: 40 mg Thiamine HCl (Vitamin B1 Tab) 100 mg NG DAILY [facility] Last Admin: 11/21/17 09:50 Dose: 100 mg - Labs Labs: 11/22/17 05:30 11/22/17 05:30 PT 11.6 Seconds (9.8-13.1) 11/15/17 08:15 INR 1.0 (0.9-1.2) 11/15/17 08:15 APTT 29.7 Seconds (25.6-37.1) 11/15/17 08:15 - Constitutional Appears: Other (intubated on MV , not responsive ) - Head Exam Head Exam: ATRAUMATIC, NORMOCEPHALIC - Eye Exam Pupil Exam: Fixed Additional comments: pupils fixed and dilated - ENT Exam ENT Exam: Mucous Membranes Dry - Neck Exam Neck Exam: Normal Inspection - Respiratory Exam Respiratory Exam: absent: Rhonchi, Wheezes - Cardiovascular Exam Cardiovascular Exam: Tachycardia. absent: JVD - GI/Abdominal Exam GI & Abdominal Exam: Soft, Hypoactive Bowel Sounds. absent: Distended, Guarding , Rebound - Rectal Exam Rectal Exam: Deferred - Extremities Exam Extremities Exam: absent: Pedal Edema - Neurological Exam Additional comments: unresponsive does not withdraws to pain pupils fixed and dilated no cornea reflex gag reflex present ] - Skin Additional comments: mottling to skin on the lower extremities bilateral hip and bilateral lower extremities large hypopigmented skin areas Assessment and Plan - Assessment and Plan (Free Text) Assessment: White male , Tez White , unkempt, unknown PMH was broughtby EMS after he was observed by bystanders falling in the street. Patient was lethargic on admission however arousable , noted to have a facial droop and his speech was slurred. CT of head : Moderate to significant diffuse/confluent chronic white matter ischemic changes seen extending from the periventricular into the subcortical regions bilaterally. Changes are most pronounced in the parietal lobes. In addition, there are scattered chronic bilateral basal nuclei lacunar type infarcts. Small lacunar type infarcts also seen both cerebellar hemispheres. Note that the possibility of a small hyperacute infarct cannot be excluded on this study. Clinical correlation recommended. Marked dilatation of the atria and occipital horns possibly secondary to central volume loss on which is above most pronounced in the temporal occipital and parietal watershed zone regions On 11/16 noted to be obtunded ,unable to clear his secretions, tachypneic and saturation in the 80%. He was transferred to ICU and intubated for airway protection. Repeat CT of head showed no change.MRI showed pontine, midbrain, cerebellar hemispheres and thalami infarct. Patient is intubated , unresponsive comatose , with no cornea and fixed dilated pupils today . Overnight with episode of vomiting , possible aspiration , Becoming hypotensive , tachycardic, febrile, hypoxemic 1. Suspected Aspiration Pneumonia and sepsis CXR stat Vent settings adjusted to 16/5/450/100 % Continue Zosyn and vanco. Add Cipro and call ID consult Hold Feeding and keep NPO Bolus 2 L IVF and than 100 ml/hr . Start pressors if BP does not respond Cooling blankets,Tmax 102 Flat abdomen to r/o ileus or obstruction Send Lactic acid , procalcitonin Keep HOB elevated , aspiratin precautions,respiratory toilet with frequent suctioning 2. Encephalopathy / AMS secondary to acute CVA Patient is comatose at present with fixed and dilated pupils , not withdrawing to painful stimuli , cornea reflex no present , gag reflex present MRI brain showed pontine , midbrain, cerebellar hemispheres and thalamic infarct Neurology on consult Continue ASA, Statin, Plavix and Amantadine Vent management Permissive hypertension Poor Prognosis May need physician / ethics committee involved moving forward as we still do not have an ID on this patient and his mental state appears to be slowly worsening [facility] has been notified 3. Acute Respiratory failure due to Altered Level of consciousness and CVA Intubated on MV PRVC / Ac mode 16 /450/5/100 % Check CXR stat to rule out aspiration Continue vanco and Zosyn . Start Cipro 4. UTI urine cx positive for Strep viridans Continue vanco 5. ? Alcoholism unclear if alcoholic, cannot obtain hx however ED note stated that pateint has history of ETOH ETOH level low urine Tox : neg Thiamine and FA 6.DVT prophylaxis Acute Lovenox
[2017-11-22] MEDS ORDERED: Sodium Chloride 3% for Inhalation 4 ML VIAL.NEB IH PRN (07:51)
--- NOTE | 2017-11-22 08:38 | CP.CCUPN ---
<Mich Garcia - Last Filed: 11/22/17 10:03> CCU Subjective - Physician Review Events Since Last Encounter (Free Text): pt seen and evaluated at bedside. Overnight events reviewed. Spiked fevers, up to 102.4, desaturation and hypotension. Episode of vomiting. Remains intubated, at 16/100/450/5. WBC elevated today. Pupils dilated, w/o reaction. No corneal reflex present, however, gag remains. Intermittent decerebrate posturing still appreciated. CCU Objective - Vital Signs / Intake & Output Vital Signs (Last 4 hours): Vital Signs Temp Pulse Resp BP Pulse Ox 11/22/17 07:48 99.7 F H 106 H 21 74/54 L 100 11/22/17 06:00 110 H 23 79/54 L 97 Intake and Output (Last 8hrs): Intake & Output 11/21/17 11/22/17 11/22/17 22:59 06:59 14:59 Intake Total 1460 390 Output Total 800 1700 Balance 660 -1310 Weight 69.853 kg Intake: Intake, Piggyback 200 Tube Feeding 960 240 Free Water Flush 300 150 Output: Gastric Amount 700 Stomach 700 Urine 800 1000 2-way Urethral 800 1000 Other: # Bowel Movements 0 - Physical Exam Head: Positive for: Atraumatic, Normocephalic. Negative for: Ecchymosis, Abrasion, Laceration Pupils: Positive for: Non-Reactive, Other (dilated ) Extroacular Muscles: Negative for: EOMI, Gaze Palsy Conjunctiva: Positive for: Normal. Negative for: Injected, Icteric Ears: Positive for: Normal Mouth: Positive for: Dry. Negative for: Normal Teeth (missing dentition ) Pharnyx: Positive for: Normal. Negative for: ERYTHEMA, EXUDATE, TONSILS ENLARGED Neck: Positive for: Normal Range of Motion, Trachea Midline. Negative for: Meningeal Signs, JVD, Lymphadenopathy Respiratory/Chest: Positive for: Clear to Auscultation, Respiratory Distress, Accessory Muscle Use, Tachypneic. Negative for: Decreased Breath Sounds, Rales , Retracting, Rhonchi, Tender to Palpation Cardiovascular: Positive for: Normal S1, S2, Peripheal Pulses Present (present but faint ), Tachycardic. Negative for: Regular Rate and Rhythm, Murmurs, Irregular Rhythm, Rub, Gallop, Muffled Abdomen: Positive for: Normal Bowel Sounds. Negative for: Tenderness, Distention, Peritoneal Signs Upper Extremity: Positive for: Normal Inspection, Capillary Refill < 2s. Negative for: Cyanosis, Edema Lower Extremity: Positive for: Normal Inspection, NORMAL PULSES, Neurovascularly Intact, Capillary Refill < 2 s. Negative for: Edema, CALF TENDERNESS, Swelling, Erythema, Temperature Abnormalties Neurological: Positive for: Motor Func Grossly Intact, Other (intermittent decerebrate posturing, less frequent today. +corneal reflex today). Negative for: GCS=15 (GCS: 4T), CN II-XII Intact, Speech Normal (unable to evaluate ), Normal Sensory Function, Normal Cerebellar Funct, Norm Deep Tendon Reflexes ( asymmetric rigidity with brisk reflexes b/l, improved ) Skin: Positive for: Dry, Cold (extremities ), Other (mottled ). Negative for: Normal Color (vitiligo?, chronic skin changes from weather exposure and recurrent friction/trauma ), Laceration Lymphatic: Negative for: Cervical Adenopathy Psychiatric: Positive for: Other (comatose). Negative for: Alert, Oriented x 3 , Normal Insight, Normal Concentration - Medications Active Medications: Active Medications Generic Name Dose Route Start Last Admin Trade Name Freq PRN Reason Stop Dose Admin Acetaminophen 650 mg 11/20/17 21:14 11/22/17 03:54 Tylenol 650mg/20.3ml Solution Ud PO 650 mg Q6 PRN Administration Fever >100.4 Amantadine HCl 100 mg 11/17/17 17:00 11/21/17 17:13 Amantadine 100 Mg Cap PO 100 mg BID ZIA Administration Aspirin 81 mg 11/19/17 09:00 11/21/17 09:50 Aspirin Chewable NG 81 mg DAILY ZIA Administration Atorvastatin Calcium 40 mg 11/17/17 22:00 11/21/17 21:40 Lipitor PO 40 mg HS ZIA Administration Clopidogrel Bisulfate 75 mg 11/18/17 09:45 11/21/17 09:50 Plavix NG 75 mg DAILY ZIA Administration Folic Acid 1 mg 11/17/17 09:00 11/21/17 09:50 Folic Acid GT 1 mg DAILY ZIA Administration Piperacillin Sod/Tazobactam 100 mls @ 100 mls/hr 11/21/17 04:00 11/22/17 03: 26 Sod 3.375 gm/ Sodium Chloride IVPB 100 mls/hr Q6 ZIA Administration Protocol Sodium Chloride 1,000 mls @ 100 mls/hr 11/22/17 06:15 11/22/17 07:31 Sodium Chloride 0.9% IV 11/22/17 16:14 100 mls/hr .Q10H ZIA Administration Vancomycin HCl 1 gm/ Sodium 250 mls @ 166.667 mls/hr 11/22/17 09:00 Chloride IVPB DAILY ZIA Protocol Sodium Chloride 500 mls @ 500 mls/hr 11/22/17 07:49 Sodium Chloride 0.9% IV 11/22/17 08:48 .Q1H ONE Ciprofloxacin 400 mg in 200 mls @ 200 mls/hr 11/22/17 09:00 Cipro 400mg/200ml Dsw IVPB Q12 [facility]IA Protocol Pantoprazole Sodium 40 mg 11/19/17 09:00 11/21/17 09:51 Protonix Susp NG 40 mg DAILY ZIA Administration Thiamine HCl 100 mg 11/17/17 13:45 11/21/17 09:50 Vitamin B1 Tab NG 100 mg DAILY ZIA Administration - Patient Studies Lab Studies: Microbiology Studies 11/17/17 04:30 Blood Culture - Final Blood-Venous NO GROWTH AFTER 5 DAYS Gram Stain - Final TEST NOT PERFORMED 11/17/17 04:40 Blood Culture - Final Blood-Venous NO GROWTH AFTER 5 DAYS Gram Stain - Final TEST NOT PERFORMED 11/19/17 21:00 Blood Culture - Preliminary Blood-Venous NO GROWTH AFTER 48 HOURS 11/19/17 21:00 Blood Culture - Preliminary Blood-Venous NO GROWTH AFTER 48 HOURS 11/16/17 11:40 Urine Culture - Final Urine,[place] Streptococcus Viridans Lab Studies 11/22/17 11/22/17 11/22/17 Range/Units 05:30 05:30 04:25 WBC 17.0 H D (4.8-10.8) K/uL RBC 4.38 L (4.40-5.90) Mil/uL Hgb 13.3 (12.0-18.0) g/dL Hct 40.8 (35.0-51.0) % MCV 93.2 D (80.0-94.0) fl MCH 30.3 (27.0-31.0) pg MCHC 32.6 L (33.0-37.0) g/dL RDW 15.3 H (11.5-14.5) % Plt Count 199 (130-400) K/uL pCO2 38 (35-45) mm/Hg pO2 56 L (80-100) mm/Hg HCO3 25.0 (21-28) mmol/L ABG pH 7.42 (7.35-7.45) ABG Total CO2 25.8 (22-28) mmol/L ABG O2 Saturation 91.9 L (95-98) % ABG O2 Content 16.2 (15-23) ML/dL ABG Base Excess 0.3 (-2.0-3.0) mmol/L ABG Hemoglobin 12.9 (11.7-17.4) g/dL ABG Carboxyhemoglobin 1.4 (0.5-1.5) % POC ABG HHb (Measured) 7.9 H (0.0-5.0) % ABG Methemoglobin 1.1 (0.0-3.0) % ABG O2 Capacity 17.6 (16-24) mL/dL Roberto Test Yes A-a O2 Difference 467.0 mm/Hg Hgb O2 Saturation 89.5 L (95.0-98.0) % Vent Mode Prvc ac Mechanical Rate 16 FiO2 80.0 % Tidal Volume 450 PEEP 5 Sodium 137 (132-148) mmol/l Potassium 4.2 (3.6-5.0) MMOL/L Chloride 98 (98-107) mmol/L Carbon Dioxide 22 (22-30) mmol/L Anion Gap 21 H (10-20) BUN 16 (9-20) mg/dl Creatinine 1.3 (0.8-1.5) mg/dl Est GFR ( Amer) > 60 Est GFR (Non-Af Amer) 55 Random Glucose 161 H (75-110) mg/dL Calcium 8.3 L (8.4-10.2) mg/dL Laboratory Results - last 24 hr 11/22/17 11/22/17 11/22/17 04:25 05:30 05:30 WBC 17.0 H D RBC 4.38 L Hgb 13.3 Hct 40.8 MCV 93.2 D MCH 30.3 MCHC 32.6 L RDW 15.3 H Plt Count 199 pCO2 38 pO2 56 L HCO3 25.0 ABG pH 7.42 ABG Total CO2 25.8 ABG O2 Saturation 91.9 L ABG O2 Content 16.2 ABG Base Excess 0.3 ABG Hemoglobin 12.9 ABG Carboxyhemoglobin 1.4 POC ABG HHb (Measured) 7.9 H ABG Methemoglobin 1.1 ABG O2 Capacity 17.6 Roberto Test Yes A-a O2 Difference 467.0 Hgb O2 Saturation 89.5 L Vent Mode Prvc ac Mechanical Rate 16 FiO2 80.0 Tidal Volume 450 PEEP 5 Sodium 137 Potassium 4.2 Chloride 98 Carbon Dioxide 22 Anion Gap 21 H BUN 16 Creatinine 1.3 Est GFR ( Amer) > 60 Est GFR (Non-Af Amer) 55 Random Glucose 161 H Calcium 8.3 L Fingerstick Blood Sugar Results: 108 Critical Care Progress Note - Ventilator Checklist Head of Bed 30 Degrees: Yes Daily Sedation Vacation: No Daily Assessment of Readiness to Wean: No Daily Spontaneous Breathing Trial: No PUD Prophalyxis: Yes DVT Prophylaxis: Yes Oral Care with Chlorhexidine Gluconate {CHG}: Yes - Vent Settings MODE:: PRVC TIDAL VOLUME:: 450 RESP RATE:: 16 FIO2:: 100 PEEP:: 5 - Extremities/Vascular Does the Patient have a Central Venous Catheter?: Yes Insertion Site: Femoral Vein Does the Patient need a Central Venous Catheter?: Yes Does the Patient have a Holloway Catheter?: Yes Does the Patient need a Holloway Catheter?: Yes Catheter Insertion Criteria: Need for accurate measurement of output in critically ill patient - Prophylaxis GI Prophylaxis GI: PPI - Prophylaxis DVT Prophylaxis DVT: Lovenox - Nutrition Nutrition: Nutrition Category Date Time Status NPO Diet [DIET] Diets 11/15/17 Lunch Active Assessment/Plan - Assessment and Plan (Free Text) Assessment: 63 y/o male, with unobtainable medical history, admitted to hospital for AMS of uncertain etiology, transferred to ICU due to worsening mental status, tachypnea , and desaturation, 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 Plan: 1) Altered Mental Status secondary to Acute Pontine infarct with extension to midbrain -brain MRI: acute pontine infaract with extension to midbrain. Smaller cerebellar infarcts b/l -Intubated -c/w respiratory support -aspirin/plavix as per neuro -amantadine -poor prognosis 2) Respiratory Failure secondary to AMS -2/2 to Acute CVA -intubated -monitor vitals/ABG -currently at 16/100/450/5 -adjust accordingly 3) Suspected Aspiration Pneumonia/Sepsis -repeat CXR -procalcitonin/lactic acid pending -repeat reagan-cultures pending -Ciprofloxacin added to abx regiment -ID Consult pending -hypotensive -fluid resuscitation -CVC in right femoral placed, start Levophed -repeat AM labs/imaging 4) Urinary Tract Infection -Zosyn/Vanc -repeat Urine C&S pending 5) Prophylaxis -Head of bed elevation @ 30 degrees -Protonix 40mg IVP QD -Lovenox 40mg SC QD -SCDs 6) Code Status: -Full code <Ezekiel Torrez M - Last Filed: 11/22/17 12:20> CCU Objective - Vital Signs / Intake & Output Vital Signs (Last 4 hours): Vital Signs Temp Pulse Resp BP Pulse Ox 11/22/17 11:59 97.9 F 88 18 119/71 100 11/22/17 10:00 84 17 107/55 L 100 Intake and Output (Last 8hrs): Intake & Output 11/21/17 11/22/17 11/22/17 22:59 06:59 14:59 Intake Total 5196 250 2770 Output Total 800 1700 Balance 660 -1310 1600 Weight 154 lb Intake: IV 1500 Intake, Piggyback 200 100 Tube Feeding 960 240 Free Water Flush 300 150 Output: Gastric Amount 700 Stomach 700 Urine 800 1000 2-way Urethral 800 1000 Other: # Bowel Movements 0 - Medications Active Medications: Active Medications Generic Name Dose Route Start Last Admin Trade Name Freq PRN Reason Stop Dose Admin Acetaminophen 650 mg 11/20/17 21:14 11/22/17 03:54 Tylenol 650mg/20.3ml Solution Ud PO 650 mg Q6 PRN Administration Fever >100.4 Amantadine HCl 100 mg 11/17/17 17:00 11/22/17 08:51 Amantadine 100 Mg Cap PO Not Given BID ZIA Aspirin 81 mg 11/19/17 09:00 11/22/17 08:50 Aspirin Chewable NG Not Given DAILY ZIA Atorvastatin Calcium 40 mg 11/17/17 22:00 11/21/17 21:40 Lipitor PO 40 mg HS ZIA Administration Clopidogrel Bisulfate 75 mg 11/18/17 09:45 11/22/17 08:51 Plavix NG Not Given DAILY [facility] Folic Acid 1 mg 11/17/17 09:00 11/22/17 08:51 Folic Acid GT Not Given DAILY [facility] Piperacillin Sod/Tazobactam 100 mls @ 100 mls/hr 11/21/17 04:00 11/22/17 03: 26 Sod 3.375 gm/ Sodium Chloride IVPB 100 mls/hr Q6 ZIA Administration Protocol Sodium Chloride 1,000 mls @ 100 mls/hr 11/22/17 06:15 11/22/17 07:31 Sodium Chloride 0.9% IV 11/22/17 16:14 100 mls/hr .Q10H ZIA Administration Vancomycin HCl 1 gm/ Sodium 250 mls @ 166.667 mls/hr 11/22/17 09:00 Chloride IVPB DAILY [facility] Protocol Ciprofloxacin 400 mg in 200 mls @ 200 mls/hr 11/22/17 09:00 Cipro 400mg/200ml Dsw IVPB Q12 [facility] Protocol Norepinephrine Bitartrate 8 mg 258 mls @ 4.83 mls/hr 11/22/17 09:56 / Dextrose IV 11/23/17 09:55 .Q24H ONE 2.5 MCG/MIN Pantoprazole Sodium 40 mg 11/19/17 09:00 11/22/17 08:51 Protonix Susp NG Not Given DAILY [facility] Thiamine HCl 100 mg 11/17/17 13:45 11/22/17 08:52 Vitamin B1 Tab NG Not Given DAILY [facility] - Patient Studies Lab Studies: Microbiology Studies 11/17/17 04:30 Blood Culture - Final Blood-Venous NO GROWTH AFTER 5 DAYS Gram Stain - Final TEST NOT PERFORMED 11/17/17 04:40 Blood Culture - Final Blood-Venous NO GROWTH AFTER 5 DAYS Gram Stain - Final TEST NOT PERFORMED 11/19/17 21:00 Blood Culture - Preliminary Blood-Venous NO GROWTH AFTER 48 HOURS 11/19/17 21:00 Blood Culture - Preliminary Blood-Venous NO GROWTH AFTER 48 HOURS 11/16/17 11:40 Urine Culture - Final Urine,[place] Streptococcus Viridans Lab Studies 11/22/17 11/22/17 11/22/17 Range/Units 11:55 10:30 08:48 WBC (4.8-10.8) K/uL RBC (4.40-5.90) Mil/uL Hgb (12.0-18.0) g/dL Hct (35.0-51.0) % MCV (80.0-94.0) fl MCH (27.0-31.0) pg MCHC (33.0-37.0) g/dL RDW (11.5-14.5) % Plt Count (130-400) K/uL pCO2 (35-45) mm/Hg pO2 160 H (80-100) mm/Hg HCO3 (21-28) mmol/L ABG pH (7.35-7.45) ABG Total CO2 (22-28) mmol/L ABG O2 Saturation (95-98) % ABG O2 Content (15-23) ML/dL ABG Base Excess (-2.0-3.0) mmol/L ABG Hemoglobin (11.7-17.4) g/dL ABG Carboxyhemoglobin (0.5-1.5) % POC ABG HHb (Measured) (0.0-5.0) % ABG Methemoglobin (0.0-3.0) % ABG O2 Capacity (16-24) mL/dL Roberto Test VBG pH 7.37 (7.32-7.43) VBG pCO2 37 L (40-60) mmHg VBG HCO3 22.3 mmol/L VBG Total CO2 22.5 (22-28) mmol/L VBG O2 Sat (Calc) 99.7 H (40-65) % VBG Base Excess -3.4 L (0.0-2.0) mmol/L VBG Potassium 3.5 L (3.6-5.2) mmol/L A-a O2 Difference mm/Hg Hgb O2 Saturation (95.0-98.0) % Glucose 147 H (75-110) mg/dL Lactate 1.2 (0.7-2.1) mmol/L Vent Mode Mechanical Rate FiO2 40.0 % Tidal Volume PEEP Sodium 132.0 (132-148) mmol/l Potassium (3.6-5.0) MMOL/L Chloride 106.0 (98-107) mmol/L Carbon Dioxide (22-30) mmol/L Anion Gap (10-20) BUN (9-20) mg/dl Creatinine (0.8-1.5) mg/dl Est GFR ( Amer) Est GFR (Non-Af Amer) POC Glucose (mg/dL) 127 H (65-110) mg/dL Random Glucose (75-110) mg/dL Lactic Acid 2.1 (0.7-2.1) MMOL/L Calcium (8.4-10.2) mg/dL Venous Blood Potassium 3.5 L (3.6-5.2) mmol/L 11/22/17 11/22/17 11/22/17 Range/Units 05:30 05:30 04:25 WBC 17.0 H D (4.8-10.8) K/uL RBC 4.38 L (4.40-5.90) Mil/uL Hgb 13.3 (12.0-18.0) g/dL Hct 40.8 (35.0-51.0) % MCV 93.2 D (80.0-94.0) fl MCH 30.3 (27.0-31.0) pg MCHC 32.6 L (33.0-37.0) g/dL RDW 15.3 H (11.5-14.5) % Plt Count 199 (130-400) K/uL pCO2 38 (35-45) mm/Hg pO2 56 L (80-100) mm/Hg HCO3 25.0 (21-28) mmol/L ABG pH 7.42 (7.35-7.45) ABG Total CO2 25.8 (22-28) mmol/L ABG O2 Saturation 91.9 L (95-98) % ABG O2 Content 16.2 (15-23) ML/dL ABG Base Excess 0.3 (-2.0-3.0) mmol/L ABG Hemoglobin 12.9 (11.7-17.4) g/dL ABG Carboxyhemoglobin 1.4 (0.5-1.5) % POC ABG HHb (Measured) 7.9 H (0.0-5.0) % ABG Methemoglobin 1.1 (0.0-3.0) % ABG O2 Capacity 17.6 (16-24) mL/dL Roberto Test Yes VBG pH (7.32-7.43) VBG pCO2 (40-60) mmHg VBG HCO3 mmol/L VBG Total CO2 (22-28) mmol/L VBG O2 Sat (Calc) (40-65) % VBG Base Excess (0.0-2.0) mmol/L VBG Potassium (3.6-5.2) mmol/L A-a O2 Difference 467.0 mm/Hg Hgb O2 Saturation 89.5 L (95.0-98.0) % Glucose (75-110) mg/dL Lactate (0.7-2.1) mmol/L Vent Mode Prvc ac Mechanical Rate 16 FiO2 80.0 % Tidal Volume 450 PEEP 5 Sodium 137 (132-148) mmol/l Potassium 4.2 (3.6-5.0) MMOL/L Chloride 98 (98-107) mmol/L Carbon Dioxide 22 (22-30) mmol/L Anion Gap 21 H (10-20) BUN 16 (9-20) mg/dl Creatinine 1.3 (0.8-1.5) mg/dl Est GFR ( Amer) > 60 Est GFR (Non-Af Amer) 55 POC Glucose (mg/dL) (65-110) mg/dL Random Glucose 161 H (75-110) mg/dL Lactic Acid (0.7-2.1) MMOL/L Calcium 8.3 L (8.4-10.2) mg/dL Venous Blood Potassium (3.6-5.2) mmol/L Laboratory Results - last 24 hr 11/22/17 11/22/17 11/22/17 04:25 05:30 05:30 WBC 17.0 H D RBC 4.38 L Hgb 13.3 Hct 40.8 MCV 93.2 D MCH 30.3 MCHC 32.6 L RDW 15.3 H Plt Count 199 pCO2 38 pO2 56 L HCO3 25.0 ABG pH 7.42 ABG Total CO2 25.8 ABG O2 Saturation 91.9 L ABG O2 Content 16.2 ABG Base Excess 0.3 ABG Hemoglobin 12.9 ABG Carboxyhemoglobin 1.4 POC ABG HHb (Measured) 7.9 H ABG Methemoglobin 1.1 ABG O2 Capacity 17.6 Roberto Test Yes VBG pH VBG pCO2 VBG HCO3 VBG Total CO2 VBG O2 Sat (Calc) VBG Base Excess VBG Potassium A-a O2 Difference 467.0 Hgb O2 Saturation 89.5 L Glucose Lactate Vent Mode Prvc ac Mechanical Rate 16 FiO2 80.0 Tidal Volume 450 PEEP 5 Sodium 137 Potassium 4.2 Chloride 98 Carbon Dioxide 22 Anion Gap 21 H BUN 16 Creatinine 1.3 Est GFR ( Amer) > 60 Est GFR (Non-Af Amer) 55 POC Glucose (mg/dL) Random Glucose 161 H Lactic Acid Calcium 8.3 L Venous Blood Potassium 11/22/17 11/22/17 11/22/17 08:48 10:30 11:55 WBC RBC Hgb Hct MCV MCH MCHC RDW Plt Count pCO2 pO2 160 H HCO3 ABG pH ABG Total CO2 ABG O2 Saturation ABG O2 Content ABG Base Excess ABG Hemoglobin ABG Carboxyhemoglobin POC ABG HHb (Measured) ABG Methemoglobin ABG O2 Capacity Roberto Test VBG pH 7.37 VBG pCO2 37 L VBG HCO3 22.3 VBG Total CO2 22.5 VBG O2 Sat (Calc) 99.7 H VBG Base Excess -3.4 L VBG Potassium 3.5 L A-a O2 Difference Hgb O2 Saturation Glucose 147 H Lactate 1.2 Vent Mode Mechanical Rate FiO2 40.0 Tidal Volume PEEP Sodium 132.0 Potassium Chloride 106.0 Carbon Dioxide Anion Gap BUN Creatinine Est GFR ( Amer) Est GFR (Non-Af Amer) POC Glucose (mg/dL) 127 H Random Glucose Lactic Acid 2.1 Calcium Venous Blood Potassium 3.5 L Critical Care Progress Note - Nutrition Nutrition: Nutrition Category Date Time Status NPO Diet [DIET] Diets 11/15/17 Lunch Active Assessment/Plan (1) Ischemic stroke Current Visit: Yes Status: Acute Comment: 11/21/2017: CT HEAD WITHOUT CONTRAST. IMPRESSION: Evolution of brain infarction is identified partially obscured at the brainstem and more obvious at the bilateral cerebral peduncle as well as small foci at both cerebellar hemispheres as discussed above. No intracranial hemorrhage or significant mass appreciable this at this time. Reiteration of age related neuro degenerative changes. (2) Acute metabolic encephalopathy Current Visit: Yes Status: Acute (3) Acute respiratory insufficiency Current Visit: Yes Status: Acute Comment: Patient intubated for airway protection, due to Altered Level of consciousness (4) Alcohol intoxication Current Visit: Yes Status: Acute (5) Altered mental status Current Visit: Yes Status: Acute Priority: High Comment: Comatosed, no improvement of mental status (6) UTI (urinary tract infection) Current Visit: Yes Status: Acute Comment: Continue IV Vanco and Zosyn Urine C/S positive for gram positive Cocci Sputum and blood C/S with no growth Attending/Attestation - Attestation I have personally seen and examined this patient.: Yes I have fully participated in the care of the patient.: Yes I have reviewed all pertinent clinical information: Yes Notes (Text): 11/22/17 12:12 Today: Wednesday, November 22, 2017 The patient was Seen/interviewed and examined by me at the bedside during ICU round, Medical records reviewed and Management issues were discussed and formulated with the house staff. Events reviewed I have reviewed all the relevant clinical, laboratory, hemodynamic, radiographic data and medications Pain issues, skin care, head of the bed elevation, glycemic control were addressed. I concur with resident's assessment and plan of care as transcribed in Dr. Garcia note. Pt critically ill, orally intubated and mechanically ventilated. PRVC AC16 TV450 FiO2 increased to 100% PEEP5. Resp nonlabored, no spontaneous resp noted. Patient now with Septic shock Emergent cental line was placed, two physician consent obtained Optimize blood pressure, hemodynamic monitoring and maintain end-organ perfusion Patient initially noted to be hypotensive to 80s/60s and tachy Started on levophed for BP support, wean as tolerated Continue IV hydration; continue to reassess fluid status regularly Monitor UOP, Strict Is/Os Continue IV antibiotics with IV Vanco and Zosyn, also IV Cipro added Reagan culture sent Total critical care time 48 minutes
[2017-11-22] MEDS: Pantoprazole 40 mg Susp UD NG SCH (08:51)
[2017-11-22] MEDS ORDERED: Ciprofloxacin 400mg/200ml D5W 400 MG/200 ML BAG IVPB SCH (09:00)
--- NOTE | 2017-11-22 09:31 | RAD ---
HISTORY: ETT placement COMPARISON: Chest radiograph dated 11/21/2017. FINDINGS: LUNGS: Pulmonary vascular congestion. Left basilar atelectasis. PLEURA: Questionable small left pleural effusion. No pneumothorax apparent. CARDIOVASCULAR: Atherosclerotic aortic calcifications. Cardiomediastinal silhouette stably enlarged. OSSEOUS STRUCTURES: No significant abnormalities. VISUALIZED UPPER ABDOMEN: Normal. OTHER FINDINGS: Endotracheal, enteric tubes, unchanged. IMPRESSION: Stable tubes and lines. Pulmonary vascular congestion and left basilar atelectasis. Questionable small left pleural effusion.
--- NOTE | 2017-11-22 09:36 | RAD ---
HISTORY: r/o ileus COMPARISON: No prior. FINDINGS: BOWEL: Nonspecific bowel gas pattern with gaseous dilatation of bowel. A small bowel loop measures up to 5.6 cm. BONES: Normal. OTHER FINDINGS: Partially imaged enteric tube. IMPRESSION: Nonspecific gaseous dilatation of bowel with a small bowel loop measuring up to 5.6 cm.
--- NOTE | 2017-11-22 10:17 | PCM.PROC ---
Procedures Attestation:: I certify that I have explained the specified Operation(s) or Procedure(s), risks, benefits and reasonable alternatives to the Patient and/or other person responsible. The opportunity was given to ask questions and all questions answered - Central Line Placement Right Femoral Triple Lumen Catheter Aseptic technique was employed throughout the procedure: Hand Hygiene done prior to procedure, Full sterile barriers (mask, hair cover, sterile gown, sterile gloves), Full body sterile drape, Chloraprep Antiseptic: 2 minute prep for Femoral CVP Time Out Performed: Yes Pt. Placed on Pulse Ox Monitor: Yes Central Line Prep: Chlorhexidine-Alcohol Combination Ultrasound Used for Placement: No Central Line Lumen Inserted: triple Central Line Length: 20 cm Post Procedure: Sutured in Place, Good Blood Return, All Ports Aspirated, Flushed, Capped, Sterile Dressing Applied Secured by: Suture Post procedure dressing: Gauze, Clear vapor permeable, Chlorhexidine disc ( Biopatch) Patient Tolerated Procedure: No Complications Immediate Complications: None Additional Comments: two physician consent was obtained via primary and patient financial services coordinator. Time out: 9: 30am. Emergent central line placed to begin vasopressor therapy. No complications.
[2017-11-22 10:42] LABS: VENOUS BLOOD GAS BASE EXCESS -3.4 mmol/L (0.0-2.0); VENOUS BLOOD GAS PCO2 37 mmHg (40-60); VENOUS BLOOD GAS PO2 160 mm/Hg (30-55); VENOUS BLOOD PH 7.37 (7.32-7.43)
[2017-11-22] MEDS ORDERED: Dextrose 50% SYRINGE Inj (50 ml) ONE (17:00)
[2017-11-22] MEDS ORDERED: Dextrose 50% SYRINGE Inj (50 ml) IVP ONE (17:10)
--- NOTE | 2017-11-22 17:13 | CP.PCM.CON ---
History of Present Illness - History of Present Illness History of Present Illness: 63 yo male brought in by EMS after he was found falling in the street with unsteady gait. Patient was unable to give further information. No other history available Past Patient History - Past Medical History & Family History Past Medical History?: No - Past Social History Smoking Status: unknown - MUSCULOSKELETAL/RHEUMATOLOGICAL Hx Falls: (unknown) - PSYCHIATRIC Hx Substance Use: No (Unknown) - SURGICAL HISTORY Hx Surgeries: No Other/Comment: Unknown - ANESTHESIA Hx Anesthesia: (unknown) Meds Allergies/Adverse Reactions: Allergies Allergy/AdvReac Type Severity Reaction Status Date / Time Unobtainable Allergy Verified 11/14/17 15:27 - Medications Medications: Current Medications Acetaminophen (Tylenol 650mg/20.3ml Solution Ud) 650 mg PO Q6 PRN PRN Reason: Fever >100.4 Last Admin: 11/22/17 03:54 Dose: 650 mg Acetaminophen (Tylenol 650 Mg Supp) 650 mg [place] Q4 PRN PRN Reason: Fever >100.4 F Last Admin: 11/22/17 14:51 Dose: 650 mg Amantadine HCl (Amantadine 100 Mg Cap) 100 mg PO BID [facility] Last Admin: 11/22/17 16:09 Dose: Not Given Aspirin (Aspirin Chewable) 81 mg NG DAILY [facility] Last Admin: 11/22/17 08:50 Dose: Not Given Atorvastatin Calcium (Lipitor) 40 mg PO HS [facility] Last Admin: 11/21/17 21:40 Dose: 40 mg Clopidogrel Bisulfate (Plavix) 75 mg NG DAILY [facility] Last Admin: 11/22/17 08:51 Dose: Not Given Famotidine (Famotidine) 20 mg IVP Q12 [facility] Folic Acid (Folic Acid) 1 mg GT DAILY [facility] Last Admin: 11/22/17 08:51 Dose: Not Given Piperacillin Sod/Tazobactam (Sod 3.375 gm/ Sodium Chloride) 100 mls @ 100 mls/ hr IVPB Q6 [facility] PRN Reason: Protocol Last Admin: 11/22/17 16:10 Dose: 100 mls/hr Vancomycin HCl 1 gm/ Sodium (Chloride) 250 mls @ 166.667 mls/hr IVPB DAILY [facility] PRN Reason: Protocol Last Admin: 11/22/17 12:05 Dose: 166.667 mls/hr Ciprofloxacin (Cipro 400mg/200ml Dsw) 400 mg in 200 mls @ 200 mls/hr IVPB Q12 [facility] PRN Reason: Protocol Last Admin: 11/22/17 12:04 Dose: 200 mls/hr Norepinephrine Bitartrate 8 mg (/ Dextrose) 258 mls @ 4.83 mls/hr IV .Q24H ONE PRN Reason: 2.5 MCG/MIN Stop: 11/23/17 09:55 Last Admin: 11/22/17 12:00 Dose: 4.83 mls/hr Thiamine HCl (Vitamin B1 Tab) 100 mg NG DAILY [facility] Last Admin: 11/22/17 08:52 Dose: Not Given Physical Exam - Constitutional Additional comments: Pt with non verbal and unarousable Results - Vital Signs Recent Vital Signs: Last Vital Signs Temp 101.7 F H 11/22/17 16:00 Pulse 90 11/22/17 16:00 Resp 14 11/22/17 16:00 BP 127/67 11/22/17 16:00 Pulse Ox 100 11/22/17 16:00 - Labs Result Diagrams: 11/22/17 05:30 11/22/17 05:30 Labs: Laboratory Results - last 24 hr 11/22/17 11/22/17 11/22/17 04:25 05:30 05:30 WBC 17.0 H D RBC 4.38 L Hgb 13.3 Hct 40.8 MCV 93.2 D MCH 30.3 MCHC 32.6 L RDW 15.3 H Plt Count 199 pCO2 38 pO2 56 L HCO3 25.0 ABG pH 7.42 ABG Total CO2 25.8 ABG O2 Saturation 91.9 L ABG O2 Content 16.2 ABG Base Excess 0.3 ABG Hemoglobin 12.9 ABG Carboxyhemoglobin 1.4 POC ABG HHb (Measured) 7.9 H ABG Methemoglobin 1.1 ABG O2 Capacity 17.6 Roberto Test Yes VBG pH VBG pCO2 VBG HCO3 VBG Total CO2 VBG O2 Sat (Calc) VBG Base Excess VBG Potassium A-a O2 Difference 467.0 Hgb O2 Saturation 89.5 L Glucose Lactate Vent Mode Prvc ac Mechanical Rate 16 FiO2 80.0 Tidal Volume 450 PEEP 5 Sodium 137 Potassium 4.2 Chloride 98 Carbon Dioxide 22 Anion Gap 21 H BUN 16 Creatinine 1.3 Est GFR ( Amer) > 60 Est GFR (Non-Af Amer) 55 POC Glucose (mg/dL) Random Glucose 161 H Lactic Acid Calcium 8.3 L Venous Blood Potassium 11/22/17 11/22/17 11/22/17 08:48 10:30 11:55 WBC RBC Hgb Hct MCV MCH MCHC RDW Plt Count pCO2 pO2 160 H HCO3 ABG pH ABG Total CO2 ABG O2 Saturation ABG O2 Content ABG Base Excess ABG Hemoglobin ABG Carboxyhemoglobin POC ABG HHb (Measured) ABG Methemoglobin ABG O2 Capacity Roberto Test VBG pH 7.37 VBG pCO2 37 L VBG HCO3 22.3 VBG Total CO2 22.5 VBG O2 Sat (Calc) 99.7 H VBG Base Excess -3.4 L VBG Potassium 3.5 L A-a O2 Difference Hgb O2 Saturation Glucose 147 H Lactate 1.2 Vent Mode Mechanical Rate FiO2 40.0 Tidal Volume PEEP Sodium 132.0 Potassium Chloride 106.0 Carbon Dioxide Anion Gap BUN Creatinine Est GFR ( Amer) Est GFR (Non-Af Amer) POC Glucose (mg/dL) 127 H Random Glucose Lactic Acid 2.1 Calcium Venous Blood Potassium 3.5 L 11/22/17 16:49 WBC RBC Hgb Hct MCV MCH MCHC RDW Plt Count pCO2 pO2 HCO3 ABG pH ABG Total CO2 ABG O2 Saturation ABG O2 Content ABG Base Excess ABG Hemoglobin ABG Carboxyhemoglobin POC ABG HHb (Measured) ABG Methemoglobin ABG O2 Capacity Roberto Test VBG pH VBG pCO2 VBG HCO3 VBG Total CO2 VBG O2 Sat (Calc) VBG Base Excess VBG Potassium A-a O2 Difference Hgb O2 Saturation Glucose Lactate Vent Mode Mechanical Rate FiO2 Tidal Volume PEEP Sodium Potassium Chloride Carbon Dioxide Anion Gap BUN Creatinine Est GFR ( Amer) Est GFR (Non-Af Amer) POC Glucose (mg/dL) 76 Random Glucose Lactic Acid Calcium Venous Blood Potassium Assessment & Plan - Assessment and Plan (Free Text) Assessment: Comatose patient with infiltrates most likely aspiration pneumonitis. Continue Vanomycin and Zosyn. d/c cipro
[2017-11-23] MEDS: Piperacillin/Tazobact 3.375 GM in Sodium Chloride 0.9% 100 ML IVPB SCH ×4 (03:01→21:29)
[2017-11-23 05:19] LABS: ABG ALLEN TEST YES; ARTERIAL BLOOD GAS HCO3 25.9 mmol/L (21-28); ARTERIAL BLOOD GAS HEMOGLOBIN 12.4 g/dL (11.7-17.4); ARTERIAL BLOOD GAS O2 CAPACITY 17.1 mL/dL (16-24); ARTERIAL BLOOD GAS O2 CONTENT 16.7 ML/dL (15-23); ARTERIAL BLOOD GAS O2 SAT 97.6 % (95-98); ARTERIAL BLOOD GAS PCO2 40 mm/Hg (35-45); ARTERIAL BLOOD GAS PH 7.42 (7.35-7.45); ARTERIAL BLOOD GAS PO2 86 mm/Hg (80-100); ARTERIAL BLOOD GAS TCO2 27.1 mmol/L (22-28)
[2017-11-23 05:51] LABS: HEMOGLOBIN 12.3 g/dL (12.0-18.0); MEAN CELL VOLUME 91.4 fl (80.0-94.0); MEAN CORPUSCULAR HEMOGLOBIN 30.1 pg (27.0-31.0); MEAN CORPUSCULAR HGB CONC 32.9 g/dL (33.0-37.0); RBC 4.09 Mil/uL (4.40-5.90); RED CELL DISTRIBUTION WIDTH 15.2 % (11.5-14.5); WHITE BLOOD COUNT 20.2 K/uL (4.8-10.8)
[2017-11-23 06:15] LABS: ALB/GLOB RATIO 0.8 (1.0-2.1); ALT/SGPT 59 U/L (21-72); AST/SGOT 94 U/L (17-59); BLOOD UREA NITROGEN 20 mg/dl (9-20); CALCIUM 7.8 mg/dL (8.4-10.2); GFR AFRICAN-AMERICAN > 60; GFR NON-AFRICAN AMERICAN > 60
--- NOTE | 2017-11-23 07:43 | CP.PCM.PN ---
Subjective - Date & Time of Evaluation Date of Evaluation: 11/23/17 Time of Evaluation: 07:15 - Subjective Subjective: Patient seen and examined . Intubated on MV PRVC / Ac mode 16/450/5/40% ABG 40/ 86/25/7.4 Still with output from OGT around 300 ml last 24 hours , not bilious . Febrile Tmax 102.2 on Levophed drip since yesterday but BP this aM BETTER 141/ 70 HR 74 Tmax 102.4 BP 79/54 HR 105 ABG 38/56/25/7.4 on 16/450/5/80 % . At present on vent settings 16/450/5/100 % He is comatose with pupils fixed and dilated , no cornea reflex, not withdrawing to pain, gag reflex present WBC trending up to 20 K Hgb 12.3 Plt 100 K CXR -pending this AM Objective - Vital Signs/Intake and Output Vital Signs (last 24 hours): Temp Pulse Resp BP Pulse Ox 100.1 F H 74 12 141/70 100 11/23/17 06:28 11/23/17 06:28 11/23/17 06:28 11/23/17 06:28 11/23/17 06:28 Intake and Output: 11/23/17 11/23/17 06:59 18:59 Intake Total 355 Output Total 1600 Balance -1245 - Medications Medications: Current Medications Acetaminophen (Tylenol 650mg/20.3ml Solution Ud) 650 mg PO Q6 PRN PRN Reason: Fever >100.4 Last Admin: 11/22/17 03:54 Dose: 650 mg Acetaminophen (Tylenol 650 Mg Supp) 650 mg [place] Q4 PRN PRN Reason: Fever >100.4 F Last Admin: 11/23/17 00:10 Dose: 650 mg Amantadine HCl (Amantadine 100 Mg Cap) 100 mg PO BID [facility] Last Admin: 11/22/17 16:09 Dose: Not Given Aspirin (Aspirin Chewable) 81 mg NG DAILY [facility] Last Admin: 11/22/17 08:50 Dose: Not Given Atorvastatin Calcium (Lipitor) 40 mg PO HS [facility] Last Admin: 11/22/17 21:47 Dose: Not Given Clopidogrel Bisulfate (Plavix) 75 mg NG DAILY [facility] Last Admin: 11/22/17 08:51 Dose: Not Given Famotidine (Famotidine) 20 mg IVP Q12 [facility] Last Admin: 11/22/17 20:20 Dose: 20 mg Folic Acid (Folic Acid) 1 mg GT DAILY [facility] Last Admin: 11/22/17 08:51 Dose: Not Given Piperacillin Sod/Tazobactam (Sod 3.375 gm/ Sodium Chloride) 100 mls @ 100 mls/ hr IVPB Q6 [facility] PRN Reason: Protocol Last Admin: 11/23/17 03:01 Dose: 100 mls/hr Vancomycin HCl 1 gm/ Sodium (Chloride) 250 mls @ 166.667 mls/hr IVPB DAILY [facility] PRN Reason: Protocol Last Admin: 11/22/17 12:05 Dose: 166.667 mls/hr Norepinephrine Bitartrate 8 mg (/ Dextrose) 258 mls @ 4.83 mls/hr IV .Q24H ONE PRN Reason: 2.5 MCG/MIN Stop: 11/23/17 09:55 Last Admin: 11/22/17 12:00 Dose: 4.83 mls/hr Thiamine HCl (Vitamin B1 Tab) 100 mg NG DAILY [facility] Last Admin: 11/22/17 08:52 Dose: Not Given - Labs Labs: 11/23/17 04:20 11/23/17 04:20 PT 11.6 Seconds (9.8-13.1) 11/15/17 08:15 INR 1.0 (0.9-1.2) 11/15/17 08:15 APTT 29.7 Seconds (25.6-37.1) 11/15/17 08:15 - Constitutional Appears: Other (intubated , not sedtaed , comatose) - Head Exam Head Exam: ATRAUMATIC, NORMOCEPHALIC - Eye Exam Additional comments: Pupils fixed and dilated no cornea reflex - ENT Exam ENT Exam: Mucous Membranes Dry - Neck Exam Neck Exam: Normal Inspection - Respiratory Exam Respiratory Exam: Rhonchi, NORMAL BREATHING PATTERN. absent: Wheezes - Cardiovascular Exam Cardiovascular Exam: REGULAR RHYTHM, +S1, +S2. absent: JVD - GI/Abdominal Exam GI & Abdominal Exam: Soft, Normal Bowel Sounds. absent: Distended, Guarding, Tenderness, Rebound - Extremities Exam Extremities Exam: absent: Pedal Edema Additional comments: mottling to lower extremities - Neurological Exam Additional comments: comatose fixed dilated pupils no cornea reflex gag reflex present brisk reflexes - Skin Skin Exam: Dry, Warm Additional comments: large hypopigmented areas of skin to bilateral hips and lower extremities Dry callouses to left foot plantar surface mottling to lower extremities noted ( better than yesterday ) Assessment and Plan - Assessment and Plan (Free Text) Assessment: White male , Tez White , unkempt, unknown PMH was broughtby EMS after he was observed by bystanders falling in the street. Patient was lethargic on admission however arousable , noted to have a facial droop and his speech was slurred. CT of head : Moderate to significant diffuse/confluent chronic white matter ischemic changes seen extending from the periventricular into the subcortical regions bilaterally. Changes are most pronounced in the parietal lobes. In addition, there are scattered chronic bilateral basal nuclei lacunar type infarcts. Small lacunar type infarcts also seen both cerebellar hemispheres. Note that the possibility of a small hyperacute infarct cannot be excluded on this study. Clinical correlation recommended. Marked dilatation of the atria and occipital horns possibly secondary to central volume loss on which is above most pronounced in the temporal occipital and parietal watershed zone regions On 11/16 noted to be obtunded ,unable to clear his secretions, tachypneic and saturation in the 80%. He was transferred to ICU and intubated for airway protection. Repeat CT of head showed no change.MRI showed pontine, midbrain, cerebellar hemispheres and thalami infarct. Patient is intubated , unresponsive comatose , with no cornea and fixed dilated pupils today . With episode of vomiting and possible aspiration 11/22 , Becoming hypotensive, tachycardic, febrile, hypoxemic Neurologically comatose with fixed dilated pupils, no cornea reflex , gag reflex present. 1. Aspiration Pneumonitis and sepsis BP better today . will elli off levophed drip procalcitonin 79 on Vent PRVC/AC mode 16/5/450/40 % CXR still pending this AM Continue Zosyn and vanco. Case discussed with ID Dr. Anderson Still with output from OGT and abdominal xray showed dilated intestinal loops. Hold Feeding and keep NPO Continue IVF ,cooling blankets,Tylenol PRN for fever Keep HOB elevated , aspiratin precautions,respiratory toilet with frequent suctioning 2. Encephalopathy / AMS secondary to acute CVA--comatose Patient is comatose at present with fixed and dilated pupils , not withdrawing to painful stimuli , cornea reflex no present , gag reflex present MRI brain showed pontine , midbrain, cerebellar hemispheres and thalamic infarct Neurology on consult Continue ASA, Statin, Plavix and Amantadine Vent management Permissive hypertension Poor Prognosis May need physician / ethics committee involved moving forward as we still do not have an ID on this patient and his mental state appears to be slowly worsening [facility] has been notified 3. Acute Respiratory failure due to Altered Level of consciousness and CVA -- and now aspiration pneumonitis Intubated on MV PRVC / Ac mode 16 /450/5/40 % Continue vanco and Zosyn 4. UTI urine cx positive for Strep viridans on vanco IV 5. ? Alcoholism unclear if alcoholic, cannot obtain hx however ED note stated that pateint has history of ETOH ETOH level low urine Tox : neg Thiamine and FA 6.DVT prophylaxis Acute Lovenox
[2017-11-23] MEDS ORDERED: DEXTROSE IV SCH (08:30)
[2017-11-23] MEDS ORDERED: [UNRECOGNIZED DRUG - OTHER] IV SCH (08:30)
[2017-11-23] MEDS ORDERED: POTASSIUM CHLORIDE IV SCH (08:30)
[2017-11-23] MEDS ORDERED: Potassium Ch 20mEq in D5-1/2NS 1,000 ML IV SCH (09:00)
--- NOTE | 2017-11-23 09:17 | EEG ---
DATE: TECHNICAL INFORMATION: Please note that his EEG is acquired by the following. All 15 electrodes were configured using [employer] electrode system. All electrodes were reference to A1/A2, P1/P2 respectively. During this record, there is no normal posterior dominant rhythm rather there is diffuse generalized slowing. There are also spindles noted bilaterally noncharacterized, normal sleep. There are no focal epileptiform discharges. There are no clinical or subclinical seizures. IMPRESSION: This is an abnormal electroencephalogram with presence of diffuse generalized slowing encephalopathy and/or the presence of severe anoxic encephalopathy. Travon Price MD
--- NOTE | 2017-11-23 09:35 | CP.CCUPN ---
<WilliammaritzaMich van - Last Filed: 11/23/17 10:12> CCU Subjective - Physician Review Subjective (Free Text): pt seen and examined at bedside this morning. Intubated on PRVC rate of 12, FIO2 100, Vt 450, PEEP 5. Remains febrile overnight. BP stabilized. Off pressor therapy as of 7:30am today. Labs reviewed, Leukocytosis continues to trend upwards. Procalcitonin 79. Comatose. Pupils remain fixed and dilated. No corneal reflex identified. Gag reflex remains. Episodic decerebrate posturing, less frequent than yesterday, No purposeful movement or withdrawal from painful stimuli. CCU Objective - Vital Signs / Intake & Output Vital Signs (Last 4 hours): Vital Signs Temp Pulse Resp BP Pulse Ox 11/23/17 08:00 99.6 F 72 9 L 144/77 100 11/23/17 06:28 100.1 F H 74 12 141/70 100 11/23/17 05:49 72 12 159/77 H 100 Intake and Output (Last 8hrs): Intake & Output 11/22/17 11/23/17 11/23/17 22:59 06:59 14:59 Intake Total 248 140 Output Total 1200 1600 Balance -952 -1460 Weight 68.946 kg Intake: IV 48 40 Intake, Piggyback 200 100 Oral 0 0 Output: Gastric Amount 200 100 Stomach 200 100 Urine 1000 1500 2-way Urethral 1000 1500 Other: # Bowel Movements 0 1 - Physical Exam Head: Positive for: Atraumatic, Normocephalic. Negative for: Ecchymosis, Abrasion, Laceration Pupils: Positive for: Non-Reactive, Other (fixed and dilated ) Extroacular Muscles: Negative for: EOMI, Gaze Palsy Conjunctiva: Positive for: Normal. Negative for: Injected, Icteric Ears: Positive for: Normal Mouth: Positive for: Dry. Negative for: Normal Teeth (missing dentition ) Pharnyx: Positive for: Normal. Negative for: ERYTHEMA, EXUDATE, TONSILS ENLARGED Neck: Positive for: Normal Range of Motion, Trachea Midline. Negative for: Meningeal Signs, JVD, Lymphadenopathy Respiratory/Chest: Positive for: Clear to Auscultation, Respiratory Distress, Accessory Muscle Use, Tachypneic. Negative for: Decreased Breath Sounds, Rales , Retracting, Rhonchi, Tender to Palpation Cardiovascular: Positive for: Normal S1, S2, Peripheal Pulses Present (present but faint ), Tachycardic. Negative for: Regular Rate and Rhythm, Murmurs, Irregular Rhythm, Rub, Gallop, Muffled Abdomen: Positive for: Normal Bowel Sounds. Negative for: Tenderness, Distention, Peritoneal Signs Upper Extremity: Positive for: Normal Inspection, Capillary Refill < 2s. Negative for: Cyanosis, Edema Lower Extremity: Positive for: Normal Inspection, NORMAL PULSES, Neurovascularly Intact, Capillary Refill < 2 s. Negative for: Edema, CALF TENDERNESS, Swelling, Erythema, Temperature Abnormalties Neurological: Positive for: Gait Normal, Other (intermittent decerebrate posturing, less frequent today. ). Negative for: GCS=15 (GCS: 4T), CN II-XII Intact, Speech Normal (unable to evaluate ), Motor Func Grossly Intact, Normal Sensory Function, Normal Cerebellar Funct, Norm Deep Tendon Reflexes ( asymmetric rigidity with brisk reflexes b/l) Skin: Positive for: Dry, Cold (extremities ), Other (mottled ). Negative for: Normal Color (vitiligo?, chronic skin changes from weather exposure and recurrent friction/trauma ), Laceration Lymphatic: Negative for: Cervical Adenopathy Psychiatric: Positive for: Other (comatose). Negative for: Alert, Oriented x 3 , Normal Insight, Normal Concentration - Medications Active Medications: Active Medications Generic Name Dose Route Start Last Admin Trade Name Freq PRN Reason Stop Dose Admin Acetaminophen 650 mg 11/20/17 21:14 11/22/17 03:54 Tylenol 650mg/20.3ml Solution Ud PO 650 mg Q6 PRN Administration Fever >100.4 Acetaminophen 650 mg 11/22/17 14:09 11/23/17 00:10 Tylenol 650 Mg Supp [place] 650 mg Q4 PRN Administration Fever >100.4 F Amantadine HCl 100 mg 11/17/17 17:00 11/23/17 08:51 Amantadine 100 Mg Cap PO Not Given BID [facility] Aspirin 81 mg 11/19/17 09:00 11/23/17 08:51 Aspirin Chewable NG Not Given DAILY [facility] Atorvastatin Calcium 40 mg 11/17/17 22:00 11/22/17 21:47 Lipitor PO Not Given HS [facility] Clopidogrel Bisulfate 75 mg 11/18/17 09:45 11/23/17 08:52 Plavix NG Not Given DAILY [facility] Famotidine 20 mg 11/22/17 16:14 11/23/17 08:53 Famotidine IVP 20 mg Q12 [facility] Administration Folic Acid 1 mg 11/17/17 09:00 11/23/17 08:52 Folic Acid GT Not Given DAILY [facility] Piperacillin Sod/Tazobactam 100 mls @ 100 mls/hr 11/21/17 04:00 11/23/17 03: 01 Sod 3.375 gm/ Sodium Chloride IVPB 100 mls/hr Q6 [facility] Administration Protocol Vancomycin HCl 1 gm/ Sodium 250 mls @ 166.667 mls/hr 11/22/17 09:00 11/23/17 08:53 Chloride IVPB 166.667 mls/hr DAILY [facility] Administration Protocol Norepinephrine Bitartrate 8 mg 258 mls @ 4.83 mls/hr 11/22/17 09:56 11/22/17 12:00 / Dextrose IV 11/23/17 09:55 4.83 mls/hr .Q24H ONE Administration 2.5 MCG/MIN Potassium Chloride/Dextrose/Sod Cl 1,000 mls @ 40 mls/hr 11/23/17 09:00 Potassium Chl 20 Meq In D5-1/2ns IV .Q24H [facility] Thiamine HCl 100 mg 11/17/17 13:45 11/23/17 08:52 Vitamin B1 Tab NG Not Given DAILY [facility] - Patient Studies Lab Studies: Microbiology Studies 11/22/17 08:48 Blood Culture - Preliminary Blood NO GROWTH AFTER 24 HOURS 11/22/17 08:48 Blood Culture - Preliminary Blood NO GROWTH AFTER 24 HOURS 11/22/17 13:48 Gram Stain - Final Trachasp 11/19/17 21:00 Blood Culture - Preliminary Blood-Venous NO GROWTH AFTER 3 DAYS 11/19/17 21:00 Blood Culture - Preliminary Blood-Venous NO GROWTH AFTER 3 DAYS 11/17/17 04:30 Blood Culture - Final Blood-Venous NO GROWTH AFTER 5 DAYS Gram Stain - Final TEST NOT PERFORMED 11/17/17 04:40 Blood Culture - Final Blood-Venous NO GROWTH AFTER 5 DAYS Gram Stain - Final TEST NOT PERFORMED Lab Studies 11/23/17 11/23/17 11/23/17 Range/Units 05:31 05:01 04:20 WBC (4.8-10.8) K/uL RBC (4.40-5.90) Mil/uL Hgb (12.0-18.0) g/dL Hct (35.0-51.0) % MCV (80.0-94.0) fl MCH (27.0-31.0) pg MCHC (33.0-37.0) g/dL RDW (11.5-14.5) % Plt Count (130-400) K/uL pCO2 40 (35-45) mm/Hg pO2 86 (30-55) mm/Hg HCO3 25.9 (21-28) mmol/L ABG pH 7.42 (7.35-7.45) ABG Total CO2 27.1 (22-28) mmol/L ABG O2 Saturation 97.6 (95-98) % ABG O2 Content 16.7 (15-23) ML/dL ABG Base Excess 1.3 (-2.0-3.0) mmol/L ABG Hemoglobin 12.4 (11.7-17.4) g/dL ABG Carboxyhemoglobin 1.2 (0.5-1.5) % POC ABG HHb (Measured) 2.3 (0.0-5.0) % ABG Methemoglobin 1.5 (0.0-3.0) % ABG O2 Capacity 17.1 (16-24) mL/dL Roberto Test Yes VBG pH (7.32-7.43) VBG pCO2 (40-60) mmHg VBG HCO3 mmol/L VBG Total CO2 (22-28) mmol/L VBG O2 Sat (Calc) (40-65) % VBG Base Excess (0.0-2.0) mmol/L VBG Potassium (3.6-5.2) mmol/L A-a O2 Difference 149.0 mm/Hg Hgb O2 Saturation 95.1 (95.0-98.0) % Sodium 145 (132-148) mmol/L Chloride 106 (98-107) mmol/L Glucose (75-110) mg/dL Lactate (0.7-2.1) mmol/L Vent Mode Prvc ac Mechanical Rate 16 FiO2 40.0 % Tidal Volume 450 PEEP 5 Potassium 3.5 L (3.6-5.0) MMOL/L Carbon Dioxide 24 (22-30) mmol/L Anion Gap 19 (10-20) BUN 20 (9-20) mg/dl Creatinine 1.0 (0.8-1.5) mg/dl Est GFR ( Amer) > 60 Est GFR (Non-Af Amer) > 60 POC Glucose (mg/dL) 81 (65-110) mg/dL Random Glucose 98 (75-110) mg/dL Calcium 7.8 L (8.4-10.2) mg/dL Total Bilirubin 0.9 (0.2-1.3) mg/dl AST 94 H D (17-59) U/L ALT 59 (21-72) U/L Alkaline Phosphatase 66 (38-126) U/L Total Protein 7.0 (6.3-8.2) G/DL Albumin 3.0 L (3.5-5.0) g/dL Globulin 3.9 (2.2-3.9) gm/dL Albumin/Globulin Ratio 0.8 L (1.0-2.1) Procalcitonin (0.19-0.49) NG/ML Venous Blood Potassium (3.6-5.2) mmol/L 11/23/17 11/22/17 11/22/17 Range/Units 04:20 21:18 18:25 WBC 20.2 H (4.8-10.8) K/uL RBC 4.09 L (4.40-5.90) Mil/uL Hgb 12.3 (12.0-18.0) g/dL Hct 37.4 (35.0-51.0) % MCV 91.4 (80.0-94.0) fl MCH 30.1 (27.0-31.0) pg MCHC 32.9 L (33.0-37.0) g/dL RDW 15.2 H (11.5-14.5) % Plt Count 100 L D (130-400) K/uL pCO2 (35-45) mm/Hg pO2 (30-55) mm/Hg HCO3 (21-28) mmol/L ABG pH (7.35-7.45) ABG Total CO2 (22-28) mmol/L ABG O2 Saturation (95-98) % ABG O2 Content (15-23) ML/dL ABG Base Excess (-2.0-3.0) mmol/L ABG Hemoglobin (11.7-17.4) g/dL ABG Carboxyhemoglobin (0.5-1.5) % POC ABG HHb (Measured) (0.0-5.0) % ABG Methemoglobin (0.0-3.0) % ABG O2 Capacity (16-24) mL/dL Roberto Test VBG pH (7.32-7.43) VBG pCO2 (40-60) mmHg VBG HCO3 mmol/L VBG Total CO2 (22-28) mmol/L VBG O2 Sat (Calc) (40-65) % VBG Base Excess (0.0-2.0) mmol/L VBG Potassium (3.6-5.2) mmol/L A-a O2 Difference mm/Hg Hgb O2 Saturation (95.0-98.0) % Sodium (132-148) mmol/L Chloride (98-107) mmol/L Glucose (75-110) mg/dL Lactate (0.7-2.1) mmol/L Vent Mode Mechanical Rate FiO2 % Tidal Volume PEEP Potassium (3.6-5.0) MMOL/L Carbon Dioxide (22-30) mmol/L Anion Gap (10-20) BUN (9-20) mg/dl Creatinine (0.8-1.5) mg/dl Est GFR ( Amer) Est GFR (Non-Af Amer) POC Glucose (mg/dL) 86 127 H (65-110) mg/dL Random Glucose (75-110) mg/dL Calcium (8.4-10.2) mg/dL Total Bilirubin (0.2-1.3) mg/dl AST (17-59) U/L ALT (21-72) U/L Alkaline Phosphatase (38-126) U/L Total Protein (6.3-8.2) G/DL Albumin (3.5-5.0) g/dL Globulin (2.2-3.9) gm/dL Albumin/Globulin Ratio (1.0-2.1) Procalcitonin (0.19-0.49) NG/ML Venous Blood Potassium (3.6-5.2) mmol/L 11/22/17 11/22/17 11/22/17 Range/Units 16:49 11:55 10:30 WBC (4.8-10.8) K/uL RBC (4.40-5.90) Mil/uL Hgb (12.0-18.0) g/dL Hct (35.0-51.0) % MCV (80.0-94.0) fl MCH (27.0-31.0) pg MCHC (33.0-37.0) g/dL RDW (11.5-14.5) % Plt Count (130-400) K/uL pCO2 (35-45) mm/Hg pO2 160 H (30-55) mm/Hg HCO3 (21-28) mmol/L ABG pH (7.35-7.45) ABG Total CO2 (22-28) mmol/L ABG O2 Saturation (95-98) % ABG O2 Content (15-23) ML/dL ABG Base Excess (-2.0-3.0) mmol/L ABG Hemoglobin (11.7-17.4) g/dL ABG Carboxyhemoglobin (0.5-1.5) % POC ABG HHb (Measured) (0.0-5.0) % ABG Methemoglobin (0.0-3.0) % ABG O2 Capacity (16-24) mL/dL Roberto Test VBG pH 7.37 (7.32-7.43) VBG pCO2 37 L (40-60) mmHg VBG HCO3 22.3 mmol/L VBG Total CO2 22.5 (22-28) mmol/L VBG O2 Sat (Calc) 99.7 H (40-65) % VBG Base Excess -3.4 L (0.0-2.0) mmol/L VBG Potassium 3.5 L (3.6-5.2) mmol/L A-a O2 Difference mm/Hg Hgb O2 Saturation (95.0-98.0) % Sodium 132.0 (132-148) mmol/L Chloride 106.0 (98-107) mmol/L Glucose 147 H (75-110) mg/dL Lactate 1.2 (0.7-2.1) mmol/L Vent Mode Mechanical Rate FiO2 40.0 % Tidal Volume PEEP Potassium (3.6-5.0) MMOL/L Carbon Dioxide (22-30) mmol/L Anion Gap (10-20) BUN (9-20) mg/dl Creatinine (0.8-1.5) mg/dl Est GFR ( Amer) Est GFR (Non-Af Amer) POC Glucose (mg/dL) 76 127 H (65-110) mg/dL Random Glucose (75-110) mg/dL Calcium (8.4-10.2) mg/dL Total Bilirubin (0.2-1.3) mg/dl AST (17-59) U/L ALT (21-72) U/L Alkaline Phosphatase (38-126) U/L Total Protein (6.3-8.2) G/DL Albumin (3.5-5.0) g/dL Globulin (2.2-3.9) gm/dL Albumin/Globulin Ratio (1.0-2.1) Procalcitonin (0.19-0.49) NG/ML Venous Blood Potassium 3.5 L (3.6-5.2) mmol/L 11/22/17 Range/Units 08:48 WBC (4.8-10.8) K/uL RBC (4.40-5.90) Mil/uL Hgb (12.0-18.0) g/dL Hct (35.0-51.0) % MCV (80.0-94.0) fl MCH (27.0-31.0) pg MCHC (33.0-37.0) g/dL RDW (11.5-14.5) % Plt Count (130-400) K/uL pCO2 (35-45) mm/Hg pO2 (30-55) mm/Hg HCO3 (21-28) mmol/L ABG pH (7.35-7.45) ABG Total CO2 (22-28) mmol/L ABG O2 Saturation (95-98) % ABG O2 Content (15-23) ML/dL ABG Base Excess (-2.0-3.0) mmol/L ABG Hemoglobin (11.7-17.4) g/dL ABG Carboxyhemoglobin (0.5-1.5) % POC ABG HHb (Measured) (0.0-5.0) % ABG Methemoglobin (0.0-3.0) % ABG O2 Capacity (16-24) mL/dL Roberto Test VBG pH (7.32-7.43) VBG pCO2 (40-60) mmHg VBG HCO3 mmol/L VBG Total CO2 (22-28) mmol/L VBG O2 Sat (Calc) (40-65) % VBG Base Excess (0.0-2.0) mmol/L VBG Potassium (3.6-5.2) mmol/L A-a O2 Difference mm/Hg Hgb O2 Saturation (95.0-98.0) % Sodium (132-148) mmol/L Chloride (98-107) mmol/L Glucose (75-110) mg/dL Lactate (0.7-2.1) mmol/L Vent Mode Mechanical Rate FiO2 % Tidal Volume PEEP Potassium (3.6-5.0) MMOL/L Carbon Dioxide (22-30) mmol/L Anion Gap (10-20) BUN (9-20) mg/dl Creatinine (0.8-1.5) mg/dl Est GFR ( Amer) Est GFR (Non-Af Amer) POC Glucose (mg/dL) (65-110) mg/dL Random Glucose (75-110) mg/dL Calcium (8.4-10.2) mg/dL Total Bilirubin (0.2-1.3) mg/dl AST (17-59) U/L ALT (21-72) U/L Alkaline Phosphatase (38-126) U/L Total Protein (6.3-8.2) G/DL Albumin (3.5-5.0) g/dL Globulin (2.2-3.9) gm/dL Albumin/Globulin Ratio (1.0-2.1) Procalcitonin 79.02 H (0.19-0.49) NG/ML Venous Blood Potassium (3.6-5.2) mmol/L Laboratory Results - last 24 hr 11/22/17 11/22/17 11/22/17 08:48 10:30 11:55 WBC RBC Hgb Hct MCV MCH MCHC RDW Plt Count pCO2 pO2 160 H HCO3 ABG pH ABG Total CO2 ABG O2 Saturation ABG O2 Content ABG Base Excess ABG Hemoglobin ABG Carboxyhemoglobin POC ABG HHb (Measured) ABG Methemoglobin ABG O2 Capacity Roberto Test VBG pH 7.37 VBG pCO2 37 L VBG HCO3 22.3 VBG Total CO2 22.5 VBG O2 Sat (Calc) 99.7 H VBG Base Excess -3.4 L VBG Potassium 3.5 L A-a O2 Difference Hgb O2 Saturation Sodium 132.0 Chloride 106.0 Glucose 147 H Lactate 1.2 Vent Mode Mechanical Rate FiO2 40.0 Tidal Volume PEEP Potassium Carbon Dioxide Anion Gap BUN Creatinine Est GFR ( Amer) Est GFR (Non-Af Amer) POC Glucose (mg/dL) 127 H Random Glucose Calcium Total Bilirubin AST ALT Alkaline Phosphatase Total Protein Albumin Globulin Albumin/Globulin Ratio Procalcitonin 79.02 H Venous Blood Potassium 3.5 L 11/22/17 11/22/17 11/22/17 16:49 18:25 21:18 WBC RBC Hgb Hct MCV MCH MCHC RDW Plt Count pCO2 pO2 HCO3 ABG pH ABG Total CO2 ABG O2 Saturation ABG O2 Content ABG Base Excess ABG Hemoglobin ABG Carboxyhemoglobin POC ABG HHb (Measured) ABG Methemoglobin ABG O2 Capacity Roberto Test VBG pH VBG pCO2 VBG HCO3 VBG Total CO2 VBG O2 Sat (Calc) VBG Base Excess VBG Potassium A-a O2 Difference Hgb O2 Saturation Sodium Chloride Glucose Lactate Vent Mode Mechanical Rate FiO2 Tidal Volume PEEP Potassium Carbon Dioxide Anion Gap BUN Creatinine Est GFR ( Amer) Est GFR (Non-Af Amer) POC Glucose (mg/dL) 76 127 H 86 Random Glucose Calcium Total Bilirubin AST ALT Alkaline Phosphatase Total Protein Albumin Globulin Albumin/Globulin Ratio Procalcitonin Venous Blood Potassium 11/23/17 11/23/17 11/23/17 04:20 04:20 05:01 WBC 20.2 H RBC 4.09 L Hgb 12.3 Hct 37.4 MCV 91.4 MCH 30.1 MCHC 32.9 L RDW 15.2 H Plt Count 100 L D pCO2 40 pO2 86 HCO3 25.9 ABG pH 7.42 ABG Total CO2 27.1 ABG O2 Saturation 97.6 ABG O2 Content 16.7 ABG Base Excess 1.3 ABG Hemoglobin 12.4 ABG Carboxyhemoglobin 1.2 POC ABG HHb (Measured) 2.3 ABG Methemoglobin 1.5 ABG O2 Capacity 17.1 Roberto Test Yes VBG pH VBG pCO2 VBG HCO3 VBG Total CO2 VBG O2 Sat (Calc) VBG Base Excess VBG Potassium A-a O2 Difference 149.0 Hgb O2 Saturation 95.1 Sodium 145 Chloride 106 Glucose Lactate Vent Mode Prvc ac Mechanical Rate 16 FiO2 40.0 Tidal Volume 450 PEEP 5 Potassium 3.5 L Carbon Dioxide 24 Anion Gap 19 BUN 20 Creatinine 1.0 Est GFR ( Amer) > 60 Est GFR (Non-Af Amer) > 60 POC Glucose (mg/dL) Random Glucose 98 Calcium 7.8 L Total Bilirubin 0.9 AST 94 H D ALT 59 Alkaline Phosphatase 66 Total Protein 7.0 Albumin 3.0 L Globulin 3.9 Albumin/Globulin Ratio 0.8 L Procalcitonin Venous Blood Potassium 11/23/17 05:31 WBC RBC Hgb Hct MCV MCH MCHC RDW Plt Count pCO2 pO2 HCO3 ABG pH ABG Total CO2 ABG O2 Saturation ABG O2 Content ABG Base Excess ABG Hemoglobin ABG Carboxyhemoglobin POC ABG HHb (Measured) ABG Methemoglobin ABG O2 Capacity Roberto Test VBG pH VBG pCO2 VBG HCO3 VBG Total CO2 VBG O2 Sat (Calc) VBG Base Excess VBG Potassium A-a O2 Difference Hgb O2 Saturation Sodium Chloride Glucose Lactate Vent Mode Mechanical Rate FiO2 Tidal Volume PEEP Potassium Carbon Dioxide Anion Gap BUN Creatinine Est GFR ( Amer) Est GFR (Non-Af Amer) POC Glucose (mg/dL) 81 Random Glucose Calcium Total Bilirubin AST ALT Alkaline Phosphatase Total Protein Albumin Globulin Albumin/Globulin Ratio Procalcitonin Venous Blood Potassium Fingerstick Blood Sugar Results: 81 Critical Care Progress Note - Ventilator Checklist Head of Bed 30 Degrees: Yes Daily Sedation Vacation: No (not sedated ) Daily Assessment of Readiness to Wean: No Daily Spontaneous Breathing Trial: No PUD Prophalyxis: Yes (PPI) DVT Prophylaxis: Yes (Lovenox) Oral Care with Chlorhexidine Gluconate {CHG}: Yes - Vent Settings MODE:: PRVC TIDAL VOLUME:: 450 RESP RATE:: 12 FIO2:: 100 PEEP:: 5 - Extremities/Vascular Does the Patient have a Central Venous Catheter?: Yes Insertion Site: Femoral Vein Does the Patient need a Central Venous Catheter?: Yes Does the Patient have a Holloway Catheter?: Yes Does the Patient need a Holloway Catheter?: Yes Catheter Insertion Criteria: Need for accurate measurement of output in critically ill patient - Prophylaxis GI Prophylaxis GI: PPI - Prophylaxis DVT Prophylaxis DVT: Lovenox - Nutrition Nutrition: Nutrition Category Date Time Status NPO Diet [DIET] Diets 11/15/17 Lunch Active Assessment/Plan - Assessment and Plan (Free Text) Assessment: 63 y/o male, with unobtainable medical history, admitted to hospital for AMS of uncertain etiology, transferred to ICU due to worsening mental status, tachypnea , and desaturation, found to have 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 Plan: 1) Sepsis secondary to Aspiration Pneumonitis -repeat CXR done today, density overlying left rhonda-diaphragm, can be atelactasis/effusion/pneumonia -procalcitonin: 79 -lactic acid: 2.1 -repeat reagan-cultures pending -ID Consult: d/c Cipro, c/w IV Vanc/zosyn -BP stabilized, was on Levophed, d/c-ed this morning at 7:30am -repeat AM CBC/CMP/ABG 2) Altered Mental Status secondary to Acute Pontine infarct with extension to midbrain -brain MRI: acute pontine infaract with extension to midbrain. Smaller cerebellar infarcts b/l -Intubated -c/w respiratory support -aspirin/plavix as per neuro -amantadine -poor prognosis 3) Respiratory Failure secondary to AMS -2/2 to Acute CVA, now with aspiration pneumonitis -intubated -PRVC mode currently at 12/100/450/5 -ABG on 11/23: pH 7.42, PCO2 40, PO2 86. 4) Thrombocytopenia: -platelets: 100 today -likely 2/2 to septic shock -monitor, repeat labs in AM 5) Urinary Tract Infection -c/w IV Vanc -repeat Urine C&S pending 6) Prophylaxis -Head of bed elevation @ 30 degrees -Protonix 40mg IVP QD -Lovenox 40mg SC QD -SCDs 7) Code Status: -Full code <Talib Montejo - Last Filed: 11/23/17 11:54> CCU Subjective - Physician Review Subjective (Free Text): Attestation: Patient seen and examined at the bedside with Resident Dr. Chastity Garcia; and I agree with his outline of plans and management documented below as discussed on AM rounds reflecting my review of all applicable clinical data, and participation in the care of the patient throughout the day in ICU; today, November 23, 2017.
--- NOTE | 2017-11-23 10:06 | CP.PCM.PN ---
Subjective - Date & Time of Evaluation Date of Evaluation: 11/23/17 Time of Evaluation: 10:06 - Subjective Subjective: Mr. White was seen and examined at the bedside in ICU. He remains on mechanical ventilator on PRVC mode. His pupils are slight mydriasis 4mm bilaterally, non- reactive to light accommodation, + gag reflex, withdraws from pain stimuli, but decelebrate which is a decline from previous examination. He used to raise his hand or feet to withdraw from pain, GCS-4T. He also breath over the set vent. settings. He has bilateral lower extremities mottling until the knees,He is tolerating his NGT feedings. He had episode of febrile episode with t- max 100.6. Repeat CT scan of the head done 11/21/2017 showed evolution of brain infarction is identified obscured at the brainstem. and more obvious at the bilateral cerebral peduncle as well as small foci at both cerebellar hemispheres . There is no intracranial hemorrahge or significant mass appreciable. Objective - Vital Signs/Intake and Output Vital Signs (last 24 hours): Temp Pulse Resp BP Pulse Ox 99.6 F 74 13 160/85 H 100 11/23/17 08:00 11/23/17 09:00 11/23/17 09:00 11/23/17 09:00 11/23/17 09:00 Intake and Output: 11/23/17 11/23/17 06:59 18:59 Intake Total 355 Output Total 1600 100 Balance -1245 -100 - Medications Medications: Current Medications Acetaminophen (Tylenol 650mg/20.3ml Solution Ud) 650 mg PO Q6 PRN PRN Reason: Fever >100.4 Last Admin: 11/22/17 03:54 Dose: 650 mg Acetaminophen (Tylenol 650 Mg Supp) 650 mg [place] Q4 PRN PRN Reason: Fever >100.4 F Last Admin: 11/23/17 00:10 Dose: 650 mg Amantadine HCl (Amantadine 100 Mg Cap) 100 mg PO BID [facility] Last Admin: 11/23/17 08:51 Dose: Not Given Aspirin (Aspirin Chewable) 81 mg NG DAILY [facility] Last Admin: 11/23/17 08:51 Dose: Not Given Atorvastatin Calcium (Lipitor) 40 mg PO HS [facility] Last Admin: 11/22/17 21:47 Dose: Not Given Clopidogrel Bisulfate (Plavix) 75 mg NG DAILY [facility] Last Admin: 11/23/17 08:52 Dose: Not Given Famotidine (Famotidine) 20 mg IVP Q12 [facility] Last Admin: 11/23/17 08:53 Dose: 20 mg Folic Acid (Folic Acid) 1 mg GT DAILY [facility] Last Admin: 11/23/17 08:52 Dose: Not Given Piperacillin Sod/Tazobactam (Sod 3.375 gm/ Sodium Chloride) 100 mls @ 100 mls/ hr IVPB Q6 [facility] PRN Reason: Protocol Last Admin: 11/23/17 03:01 Dose: 100 mls/hr Vancomycin HCl 1 gm/ Sodium (Chloride) 250 mls @ 166.667 mls/hr IVPB DAILY [facility] PRN Reason: Protocol Last Admin: 11/23/17 08:53 Dose: 166.667 mls/hr Potassium Chloride/Dextrose/Sod Cl (Potassium Chl 20 Meq In D5-1/2ns) 1,000 mls @ 40 mls/hr IV .Q24H [facility] Last Admin: 11/23/17 09:55 Dose: 40 mls/hr Thiamine HCl (Vitamin B1 Tab) 100 mg NG DAILY [facility] Last Admin: 11/23/17 08:52 Dose: Not Given - Labs Labs: 11/23/17 04:20 11/23/17 04:20 PT 11.6 Seconds (9.8-13.1) 11/15/17 08:15 INR 1.0 (0.9-1.2) 11/15/17 08:15 APTT 29.7 Seconds (25.6-37.1) 11/15/17 08:15 - Constitutional Appears: No Acute Distress - Head Exam Head Exam: NORMAL INSPECTION - Eye Exam Pupil Exam: Mydriatic Additional comments: 4 mm bilateral non reactive - Neurological Exam Neuro motor strength exam: Left Upper Extremity: 0, Right Upper Extremity: 0, Left Lower Extremity: 0, Right Lower Extremity: 0 Additional comments: GCS-4T Assessment and Plan (1) Ischemic stroke Assessment & Plan: Case discussed with DR. Price, continue all current medical regimen. Recommend head of bed elevated, blood pressure control, normothermic. Recommend palliative care . Status: Acute
--- NOTE | 2017-11-23 11:34 | RAD ---
PROCEDURE: CHEST RADIOGRAPH, 1 VIEW HISTORY: intubated COMPARISON: 11/22/2017 FINDINGS: LUNGS: Bilateral pulmonary venous congestion re- suggested perhaps some slight decrease in the left perihilar pulmonary venous congestion. As before the left hemidiaphragm is not delineated -left basal infiltrate/ atelectasis with or without left pleural effusion are considerations. This appearance is similar. PLEURA: No pneumothorax. Other findings as above regarding the left lung base CARDIOVASCULAR: Aortic knob atherosclerotic vascular calcification. Cardiomegaly-similar. Left ventricular enlargement configuration suggested OSSEOUS STRUCTURES: No significant abnormalities. VISUALIZED UPPER ABDOMEN: Normal. OTHER FINDINGS: Endotracheal tube tip approximately 1.9 cm cephalad to the superior clavicle cortex - consider advancement Enteric tube tip projecting over gastric expected location -similar IMPRESSION: Pulmonary venous congestion -renoted left perihilar pulmonary venous congestion/ coalescence less compatible with interval improved aeration here Left basal a amorphous density similar -left basal infiltrate atelectasis with or without small left pleural effusion considerations as noted previously Endotracheal tube tip appears slightly more cephalad consider its advancement of approximately 2 to 2.5 cm. . Endotracheal tube tip projecting over stomach as before
[2017-11-23] MEDS: Acetaminophen 650mg/20.3ml solution UD PO PRN (15:20)
[2017-11-24] MEDS: Piperacillin/Tazobact 3.375 GM in Sodium Chloride 0.9% 100 ML IVPB SCH ×4 (04:16→21:06)
[2017-11-24 05:37] LABS: ABG ALLEN TEST YES; ARTERIAL BLOOD GAS HCO3 26.4 mmol/L (21-28); ARTERIAL BLOOD GAS HEMOGLOBIN 11.9 g/dL (11.7-17.4); ARTERIAL BLOOD GAS O2 CAPACITY 16.3 mL/dL (16-24); ARTERIAL BLOOD GAS O2 SAT 98.3 % (95-98); ARTERIAL BLOOD GAS PCO2 40 mm/Hg (35-45); ARTERIAL BLOOD GAS PH 7.43 (7.35-7.45); ARTERIAL BLOOD GAS PO2 87 mm/Hg (80-100); ARTERIAL BLOOD GAS TCO2 27.7 mmol/L (22-28)
[2017-11-24 06:51] LABS: HEMOGLOBIN 11.1 g/dL (12.0-18.0); MEAN CELL VOLUME 91.1 fl (80.0-94.0); MEAN CORPUSCULAR HEMOGLOBIN 30.1 pg (27.0-31.0); MEAN CORPUSCULAR HGB CONC 33.1 g/dL (33.0-37.0); RBC 3.7 Mil/uL (4.40-5.90); RED CELL DISTRIBUTION WIDTH 14.9 % (11.5-14.5); WHITE BLOOD COUNT 14.7 K/uL (4.8-10.8)
--- NOTE | 2017-11-24 07:21 | CP.PCM.PN ---
Subjective - Date & Time of Evaluation Date of Evaluation: 11/24/17 Time of Evaluation: 07:21 - Subjective Subjective: pt intubated, sedated HD stable no acute distress Objective - Vital Signs/Intake and Output Vital Signs (last 24 hours): Temp Pulse Resp BP Pulse Ox 99.8 F H 81 13 154/85 H 100 11/23/17 18:00 11/23/17 18:00 11/23/17 18:00 11/23/17 18:00 11/23/17 18:00 Intake and Output: 11/24/17 11/24/17 06:59 18:59 Intake Total 710 Balance 710 - Medications Medications: Current Medications Acetaminophen (Tylenol 650mg/20.3ml Solution Ud) 650 mg PO Q6 PRN PRN Reason: Fever >100.4 Last Admin: 11/23/17 15:20 Dose: 650 mg Acetaminophen (Tylenol 650 Mg Supp) 650 mg ID Q4 PRN PRN Reason: Fever >100.4 F Last Admin: 11/23/17 00:10 Dose: 650 mg Amantadine HCl (Amantadine 100 Mg Cap) 100 mg PO BID [facility] Last Admin: 11/23/17 16:33 Dose: 100 mg Aspirin (Aspirin Chewable) 81 mg NG DAILY [facility] Last Admin: 11/23/17 08:51 Dose: Not Given Atorvastatin Calcium (Lipitor) 40 mg PO HS [facility] Last Admin: 11/23/17 21:30 Dose: 40 mg Clopidogrel Bisulfate (Plavix) 75 mg NG DAILY [facility] Last Admin: 11/23/17 08:52 Dose: Not Given Famotidine (Famotidine) 20 mg IVP Q12 [facility] Last Admin: 11/23/17 21:30 Dose: 20 mg Folic Acid (Folic Acid) 1 mg GT DAILY [facility] Last Admin: 11/23/17 08:52 Dose: Not Given Piperacillin Sod/Tazobactam (Sod 3.375 gm/ Sodium Chloride) 100 mls @ 100 mls/ hr IVPB Q6 [facility] PRN Reason: Protocol Last Admin: 11/24/17 04:16 Dose: 100 mls/hr Vancomycin HCl 1 gm/ Sodium (Chloride) 250 mls @ 166.667 mls/hr IVPB DAILY [facility] PRN Reason: Protocol Last Admin: 11/23/17 08:53 Dose: 166.667 mls/hr Thiamine HCl (Vitamin B1 Tab) 100 mg NG DAILY [facility] Last Admin: 11/23/17 08:52 Dose: Not Given - Labs Labs: 11/24/17 06:45 11/23/17 04:20 PT 11.6 Seconds (9.8-13.1) 11/15/17 08:15 INR 1.0 (0.9-1.2) 11/15/17 08:15 APTT 29.7 Seconds (25.6-37.1) 11/15/17 08:15 - Constitutional Appears: Non-toxic, No Acute Distress - Head Exam Head Exam: ATRAUMATIC, NORMOCEPHALIC - Eye Exam Eye Exam: EOMI, Normal appearance - ENT Exam ENT Exam: Mucous Membranes Moist Additional comments: intubated - Respiratory Exam Respiratory Exam: Clear to Ausculation Bilateral, NORMAL BREATHING PATTERN - Cardiovascular Exam Cardiovascular Exam: RRR, +S1, +S2 - GI/Abdominal Exam GI & Abdominal Exam: Soft, Normal Bowel Sounds. absent: Mass - Extremities Exam Extremities Exam: Normal Capillary Refill. absent: Joint Swelling - Back Exam Back Exam: absent: CVA tenderness (L), CVA tenderness (R) - Neurological Exam Neurological Exam: absent: Alert, Awake - Psychiatric Exam Psychiatric exam: absent: Normal Affect, Normal Mood - Skin Skin Exam: Dry, Warm Assessment and Plan - Assessment and Plan (Free Text) Plan: White male , Tez White , unkempt, unknown PMH was broughtby EMS after he was observed by bystanders falling in the street. Patient was lethargic on admission however arousable , noted to have a facial droop and his speech was slurred. CT of head : Moderate to significant diffuse/confluent chronic white matter ischemic changes seen extending from the periventricular into the subcortical regions bilaterally. Changes are most pronounced in the parietal lobes. In addition, there are scattered chronic bilateral basal nuclei lacunar type infarcts. Small lacunar type infarcts also seen both cerebellar hemispheres. Note that the possibility of a small hyperacute infarct cannot be excluded on this study. Clinical correlation recommended. Marked dilatation of the atria and occipital horns possibly secondary to central volume loss on which is above most pronounced in the temporal occipital and parietal watershed zone regions On 11/16 noted to be obtunded ,unable to clear his secretions, tachypneic and saturation in the 80%. He was transferred to ICU and intubated for airway protection. Repeat CT of head showed no change.MRI showed pontine, midbrain, cerebellar hemispheres and thalami infarct. Patient is intubated , unresponsive comatose , with no cornea and fixed dilated pupils today . With episode of vomiting and possible aspiration 11/22 , Becoming hypotensive, tachycardic, febrile, hypoxemic Neurologically comatose with fixed dilated pupils, no cornea reflex , gag reflex present. 1. Aspiration Pneumonitis and sepsis BP improving. will taper off levophed drip procalcitonin 79 on Vent PRVC/AC mode 16/5/450/40 % CXR still pending this AM Continue Zosyn and vanco. Case discussed with ID Dr. Anderson Cultures: Citerobacter, pansensitive Still with output from OGT and abdominal xray showed dilated intestinal loops. Hold Feeding and keep NPO Continue IVF ,cooling blankets,Tylenol PRN for fever Keep HOB elevated , aspiratin precautions,respiratory toilet with frequent suctioning 2. Encephalopathy / AMS secondary to acute CVA--comatose Patient is comatose at present with fixed and dilated pupils , not withdrawing to painful stimuli , cornea reflex no present , gag reflex present MRI brain showed pontine , midbrain, cerebellar hemispheres and thalamic infarct Neurology on consult Continue ASA, Statin, Plavix and Amantadine Vent management Permissive hypertension Poor Prognosis May need physician / ethics committee involved moving forward as we still do not have an ID on this patient and his mental state appears to be slowly worsening [facility] [facility] has been notified 3. Acute Respiratory failure due to Altered Level of consciousness and CVA -- and now aspiration pneumonitis Intubated on MV PRVC / Ac mode 16 /450/5/40 % Continue vanco and Zosyn 4. UTI urine cx positive for Strep viridans on vanco IV 5. ? Alcoholism unclear if alcoholic, cannot obtain hx however ED note stated that pateint has history of ETOH ETOH level low urine Tox : neg Thiamine and FA 6.DVT prophylaxis Acute Lovenox
[2017-11-24 07:23] LABS: BLOOD UREA NITROGEN 15 mg/dl (9-20); CALCIUM 7.7 mg/dL (8.4-10.2); GFR AFRICAN-AMERICAN > 60; GFR NON-AFRICAN AMERICAN > 60
--- NOTE | 2017-11-24 07:25 | CP.CCUPN ---
<JoseSánchezMich - Last Filed: 11/24/17 10:21> CCU Subjective - Physician Review Events Since Last Encounter (Free Text): pt seen and examined at bedside this morning. Intubated on PRVC rate of 12, FIO2 100, Vt 450, PEEP 5. Breathing over vent at rate of 14-16. Remains febrile overnight. BP remain anjana. Labs reviewed, Currently on IV Vanc/Zosyn as per ID recs. Leukocytosis improved. Remains comatose. Pupils remain fixed and dilated. No corneal reflex identified. Gag reflex remains. Episodic decerebrate posturing even less frequent today. No purposeful movement or withdrawal from painful stimuli. CCU Objective - Vital Signs / Intake & Output Intake and Output (Last 8hrs): Intake & Output 11/23/17 11/24/17 11/24/17 22:59 06:59 14:59 Intake Total 1120 160 Output Total 700 Balance 420 160 Intake: IV 320 80 Intake, Piggyback 200 Tube Feeding 300 80 Free Water Flush 300 Output: Urine 700 2-way Urethral 700 - Physical Exam Head: Positive for: Atraumatic, Normocephalic. Negative for: Ecchymosis, Abrasion, Laceration Pupils: Positive for: Non-Reactive, Other (fixed and dilated ) Extroacular Muscles: Negative for: EOMI, Gaze Palsy Conjunctiva: Positive for: Normal. Negative for: Injected, Icteric Ears: Positive for: Normal Mouth: Positive for: Dry. Negative for: Normal Teeth (missing dentition ) Pharnyx: Positive for: Normal. Negative for: ERYTHEMA, EXUDATE, TONSILS ENLARGED Neck: Positive for: Normal Range of Motion, Trachea Midline. Negative for: Meningeal Signs, JVD, Lymphadenopathy Respiratory/Chest: Positive for: Clear to Auscultation, Respiratory Distress, Accessory Muscle Use, Tachypneic. Negative for: Decreased Breath Sounds, Rales , Retracting, Rhonchi, Tender to Palpation Cardiovascular: Positive for: Normal S1, S2, Peripheal Pulses Present (present but faint ), Tachycardic. Negative for: Regular Rate and Rhythm, Murmurs, Irregular Rhythm, Rub, Gallop, Muffled Abdomen: Positive for: Normal Bowel Sounds. Negative for: Tenderness, Distention, Peritoneal Signs Upper Extremity: Positive for: Normal Inspection, Capillary Refill < 2s. Negative for: Cyanosis, Edema Lower Extremity: Positive for: Normal Inspection, NORMAL PULSES, Neurovascularly Intact, Capillary Refill < 2 s. Negative for: Edema, CALF TENDERNESS, Swelling, Erythema, Temperature Abnormalties Neurological: Positive for: Gait Normal, Other (intermittent decerebrate posturing, less frequent today. ). Negative for: GCS=15 (GCS: 4T), CN II-XII Intact, Speech Normal (unable to evaluate ), Motor Func Grossly Intact, Normal Sensory Function, Normal Cerebellar Funct, Norm Deep Tendon Reflexes ( asymmetric rigidity with brisk reflexes b/l) Skin: Positive for: Dry, Cold (extremities ), Other (mottled ). Negative for: Normal Color (vitiligo?, chronic skin changes from weather exposure and recurrent friction/trauma ), Laceration Lymphatic: Negative for: Cervical Adenopathy Psychiatric: Positive for: Other (comatose). Negative for: Alert, Oriented x 3 , Normal Insight, Normal Concentration - Medications Active Medications: Active Medications Generic Name Dose Route Start Last Admin Trade Name Freq PRN Reason Stop Dose Admin Acetaminophen 650 mg 11/20/17 21:14 11/23/17 15:20 Tylenol 650mg/20.3ml Solution Ud PO 650 mg Q6 PRN Administration Fever >100.4 Acetaminophen 650 mg 11/22/17 14:09 11/23/17 00:10 Tylenol 650 Mg Supp PA 650 mg Q4 PRN Administration Fever >100.4 F Amantadine HCl 100 mg 11/17/17 17:00 11/23/17 16:33 Amantadine 100 Mg Cap PO 100 mg BID [facility] Administration Aspirin 81 mg 11/19/17 09:00 11/23/17 08:51 Aspirin Chewable NG Not Given DAILY [facility] Atorvastatin Calcium 40 mg 11/17/17 22:00 11/23/17 21:30 Lipitor PO 40 mg HS [facility] Administration Clopidogrel Bisulfate 75 mg 11/18/17 09:45 11/23/17 08:52 Plavix NG Not Given DAILY [facility] Famotidine 20 mg 11/22/17 16:14 11/23/17 21:30 Famotidine IVP 20 mg Q12 [facility] Administration Folic Acid 1 mg 11/17/17 09:00 11/23/17 08:52 Folic Acid GT Not Given DAILY [facility] Piperacillin Sod/Tazobactam 100 mls @ 100 mls/hr 11/21/17 04:00 11/24/17 04: 16 Sod 3.375 gm/ Sodium Chloride IVPB 100 mls/hr Q6 [facility] Administration Protocol Vancomycin HCl 1 gm/ Sodium 250 mls @ 166.667 mls/hr 11/22/17 09:00 11/23/17 08:53 Chloride IVPB 166.667 mls/hr DAILY [facility] Administration Protocol Thiamine HCl 100 mg 11/17/17 13:45 11/23/17 08:52 Vitamin B1 Tab NG Not Given DAILY [facility] - Patient Studies Lab Studies: Microbiology Studies 11/19/17 21:00 Blood Culture - Preliminary Blood-Venous NO GROWTH AFTER 4 DAYS 11/19/17 21:00 Blood Culture - Preliminary Blood-Venous NO GROWTH AFTER 4 DAYS 11/22/17 13:48 Gram Stain - Final Trachasp Sputum Culture - Preliminary Gram Negative Ross 11/22/17 08:48 Blood Culture - Preliminary Blood NO GROWTH AFTER 24 HOURS 11/22/17 08:48 Blood Culture - Preliminary Blood NO GROWTH AFTER 24 HOURS Lab Studies 11/24/17 11/24/17 11/24/17 Range/Units 06:45 06:45 05:38 WBC 14.7 H (4.8-10.8) K/uL RBC 3.70 L (4.40-5.90) Mil/uL Hgb 11.1 L (12.0-18.0) g/dL Hct 33.7 L (35.0-51.0) % MCV 91.1 (80.0-94.0) fl MCH 30.1 (27.0-31.0) pg MCHC 33.1 (33.0-37.0) g/dL RDW 14.9 H (11.5-14.5) % Plt Count 76 L D (130-400) K/uL pCO2 (35-45) mm/Hg pO2 (80-100) mm/Hg HCO3 (21-28) mmol/L ABG pH (7.35-7.45) ABG Total CO2 (22-28) mmol/L ABG O2 Saturation (95-98) % ABG O2 Content (15-23) ML/dL ABG Base Excess (-2.0-3.0) mmol/L ABG Hemoglobin (11.7-17.4) g/dL ABG Carboxyhemoglobin (0.5-1.5) % POC ABG HHb (Measured) (0.0-5.0) % ABG Methemoglobin (0.0-3.0) % ABG O2 Capacity (16-24) mL/dL Roberto Test ABG Potassium (3.6-5.2) mmol/L A-a O2 Difference mm/Hg Hgb O2 Saturation (95.0-98.0) % Sodium 138 (132-148) mmol/L Chloride 104 (98-107) mmol/L Glucose (75-110) mg/dL Lactate (0.7-2.1) mmol/L Vent Mode Mechanical Rate FiO2 % Tidal Volume PEEP Potassium 3.9 (3.6-5.0) MMOL/L Carbon Dioxide 26 (22-30) mmol/L Anion Gap 12 (10-20) BUN 15 (9-20) mg/dl Creatinine 0.6 L (0.8-1.5) mg/dl Est GFR ( Amer) > 60 Est GFR (Non-Af Amer) > 60 POC Glucose (mg/dL) 107 (65-110) mg/dL Random Glucose 133 H (75-110) mg/dL Calcium 7.7 L (8.4-10.2) mg/dL Arterial Blood Potassium (3.6-5.2) mmol/L 11/24/17 11/23/17 11/23/17 Range/Units 05:12 21:15 16:25 WBC (4.8-10.8) K/uL RBC (4.40-5.90) Mil/uL Hgb (12.0-18.0) g/dL Hct (35.0-51.0) % MCV (80.0-94.0) fl MCH (27.0-31.0) pg MCHC (33.0-37.0) g/dL RDW (11.5-14.5) % Plt Count (130-400) K/uL pCO2 40 (35-45) mm/Hg pO2 87 (80-100) mm/Hg HCO3 26.4 (21-28) mmol/L ABG pH 7.43 (7.35-7.45) ABG Total CO2 27.7 (22-28) mmol/L ABG O2 Saturation 98.3 H (95-98) % ABG O2 Content 16.0 (15-23) ML/dL ABG Base Excess 2.0 (-2.0-3.0) mmol/L ABG Hemoglobin 11.9 (11.7-17.4) g/dL ABG Carboxyhemoglobin 1.9 H (0.5-1.5) % POC ABG HHb (Measured) 1.6 (0.0-5.0) % ABG Methemoglobin 1.3 (0.0-3.0) % ABG O2 Capacity 16.3 (16-24) mL/dL Roberto Test Yes ABG Potassium 3.8 (3.6-5.2) mmol/L A-a O2 Difference 148.0 mm/Hg Hgb O2 Saturation 95.2 (95.0-98.0) % Sodium 136.0 (132-148) mmol/L Chloride 107.0 (98-107) mmol/L Glucose 145 H (75-110) mg/dL Lactate 0.9 (0.7-2.1) mmol/L Vent Mode A/c Mechanical Rate 12 FiO2 40.0 % Tidal Volume 450 PEEP 5 Potassium (3.6-5.0) MMOL/L Carbon Dioxide (22-30) mmol/L Anion Gap (10-20) BUN (9-20) mg/dl Creatinine (0.8-1.5) mg/dl Est GFR ( Amer) Est GFR (Non-Af Amer) POC Glucose (mg/dL) 110 100 (65-110) mg/dL Random Glucose (75-110) mg/dL Calcium (8.4-10.2) mg/dL Arterial Blood Potassium 3.8 (3.6-5.2) mmol/L 11/23/17 Range/Units 11:14 WBC (4.8-10.8) K/uL RBC (4.40-5.90) Mil/uL Hgb (12.0-18.0) g/dL Hct (35.0-51.0) % MCV (80.0-94.0) fl MCH (27.0-31.0) pg MCHC (33.0-37.0) g/dL RDW (11.5-14.5) % Plt Count (130-400) K/uL pCO2 (35-45) mm/Hg pO2 (80-100) mm/Hg HCO3 (21-28) mmol/L ABG pH (7.35-7.45) ABG Total CO2 (22-28) mmol/L ABG O2 Saturation (95-98) % ABG O2 Content (15-23) ML/dL ABG Base Excess (-2.0-3.0) mmol/L ABG Hemoglobin (11.7-17.4) g/dL ABG Carboxyhemoglobin (0.5-1.5) % POC ABG HHb (Measured) (0.0-5.0) % ABG Methemoglobin (0.0-3.0) % ABG O2 Capacity (16-24) mL/dL Roberto Test ABG Potassium (3.6-5.2) mmol/L A-a O2 Difference mm/Hg Hgb O2 Saturation (95.0-98.0) % Sodium (132-148) mmol/L Chloride (98-107) mmol/L Glucose (75-110) mg/dL Lactate (0.7-2.1) mmol/L Vent Mode Mechanical Rate FiO2 % Tidal Volume PEEP Potassium (3.6-5.0) MMOL/L Carbon Dioxide (22-30) mmol/L Anion Gap (10-20) BUN (9-20) mg/dl Creatinine (0.8-1.5) mg/dl Est GFR ( Amer) Est GFR (Non-Af Amer) POC Glucose (mg/dL) 73 (65-110) mg/dL Random Glucose (75-110) mg/dL Calcium (8.4-10.2) mg/dL Arterial Blood Potassium (3.6-5.2) mmol/L Laboratory Results - last 24 hr 11/23/17 11/23/17 11/23/17 11:14 16:25 21:15 WBC RBC Hgb Hct MCV MCH MCHC RDW Plt Count pCO2 pO2 HCO3 ABG pH ABG Total CO2 ABG O2 Saturation ABG O2 Content ABG Base Excess ABG Hemoglobin ABG Carboxyhemoglobin POC ABG HHb (Measured) ABG Methemoglobin ABG O2 Capacity Roberto Test ABG Potassium A-a O2 Difference Hgb O2 Saturation Sodium Chloride Glucose Lactate Vent Mode Mechanical Rate FiO2 Tidal Volume PEEP Potassium Carbon Dioxide Anion Gap BUN Creatinine Est GFR ( Amer) Est GFR (Non-Af Amer) POC Glucose (mg/dL) 73 100 110 Random Glucose Calcium Arterial Blood Potassium 11/24/17 11/24/17 11/24/17 05:12 05:38 06:45 WBC 14.7 H RBC 3.70 L Hgb 11.1 L Hct 33.7 L MCV 91.1 MCH 30.1 MCHC 33.1 RDW 14.9 H Plt Count 76 L D pCO2 40 pO2 87 HCO3 26.4 ABG pH 7.43 ABG Total CO2 27.7 ABG O2 Saturation 98.3 H ABG O2 Content 16.0 ABG Base Excess 2.0 ABG Hemoglobin 11.9 ABG Carboxyhemoglobin 1.9 H POC ABG HHb (Measured) 1.6 ABG Methemoglobin 1.3 ABG O2 Capacity 16.3 Roberto Test Yes ABG Potassium 3.8 A-a O2 Difference 148.0 Hgb O2 Saturation 95.2 Sodium 136.0 Chloride 107.0 Glucose 145 H Lactate 0.9 Vent Mode A/c Mechanical Rate 12 FiO2 40.0 Tidal Volume 450 PEEP 5 Potassium Carbon Dioxide Anion Gap BUN Creatinine Est GFR ( Amer) Est GFR (Non-Af Amer) POC Glucose (mg/dL) 107 Random Glucose Calcium Arterial Blood Potassium 3.8 11/24/17 06:45 WBC RBC Hgb Hct MCV MCH MCHC RDW Plt Count pCO2 pO2 HCO3 ABG pH ABG Total CO2 ABG O2 Saturation ABG O2 Content ABG Base Excess ABG Hemoglobin ABG Carboxyhemoglobin POC ABG HHb (Measured) ABG Methemoglobin ABG O2 Capacity Roberto Test ABG Potassium A-a O2 Difference Hgb O2 Saturation Sodium 138 Chloride 104 Glucose Lactate Vent Mode Mechanical Rate FiO2 Tidal Volume PEEP Potassium 3.9 Carbon Dioxide 26 Anion Gap 12 BUN 15 Creatinine 0.6 L Est GFR ( Amer) > 60 Est GFR (Non-Af Amer) > 60 POC Glucose (mg/dL) Random Glucose 133 H Calcium 7.7 L Arterial Blood Potassium Fingerstick Blood Sugar Results: 110 Critical Care Progress Note - Nutrition Nutrition: Nutrition Category Date Time Status NPO Diet [DIET] Diets 11/15/17 Lunch Active Assessment/Plan - Assessment and Plan (Free Text) Assessment: 63 y/o male, with unobtainable medical history, admitted to hospital for AMS of uncertain etiology, transferred to ICU due to worsening mental status, tachypnea , and desaturation, found to have 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 Plan: 1) Sepsis secondary to Aspiration Pneumonitis -CXR today: Left basilar consolidation and/or pleural effusion silhouetting left hemidiaphragm. -procalcitonin 15: 79 -lactic acid: 0.9 -sputum: citrobacter diversus -ID Consult: c/w IV Vanc/Zosyn -fever control -leukocytosis improving today 14.7 2) Left Pleural Effusion/Infiltrate -currently on IV Zosyn -monitor, repeat CXR in AM 3) Altered Mental Status secondary to Acute Pontine infarct with extension to midbrain -brain MRI: acute pontine infaract with extension to midbrain. Smaller cerebellar infarcts b/l -Intubated -c/w respiratory support -aspirin/plavix as per neuro -amantadine -poor prognosis 4) Respiratory Failure secondary to AMS -2/2 to Acute CVA, now with aspiration pneumonitis -intubated -PRVC mode currently at 12/100/450/5 -ABG on 11/24: pH 7.43, PCO2 40, PO2 87. 5) Thrombocytopenia: -platelets: 76 today -likely 2/2 to septic shock/abx -hold Lovenox -monitor, repeat labs in AM 6) Urinary Tract Infection -c/w IV Vanc (Cx: strep viridans) 7) Prophylaxis -Head of bed elevation @ 30 degrees -Protonix 40mg IVP QD -Lovenox held 2/2 to thrombocytopenia -SCDs 8) Code Status: -Full code <Talib Montejo - Last Filed: 11/24/17 11:38> CCU Subjective - Physician Review Events Since Last Encounter (Free Text): Attestation: Patient seen and examined at the bedside with Resident Dr. Chastity Garcia; and I agree with his outline of plans and management documented below as discussed on AM rounds reflecting my review of all applicable clinical data, and participation in the care of the patient throughout the day in ICU; today, November 24, 2017.
--- NOTE | 2017-11-24 09:06 | RAD ---
PROCEDURE: CHEST RADIOGRAPH, 1 VIEW HISTORY: intubated COMPARISON: 11/23/2017 FINDINGS: LUNGS: Retrocardiac opacity silhouetting the left diaphragmatic border. Possible consolidation and/or pleural effusion. PLEURA: Possible left pleural effusion, small. No pneumothorax. No right pleural effusion. CARDIOVASCULAR: Grossly normal size. Endotracheal tube positioned just beneath the level of the thoracic inlet. Nasogastric tube extends to the central upper abdomen. OSSEOUS STRUCTURES: No significant abnormalities. VISUALIZED UPPER ABDOMEN: Normal. OTHER FINDINGS: None. IMPRESSION: Left basilar consolidation and/or pleural effusion silhouetting left hemidiaphragm. No significant change from prior. ET tube and NG tube as above.
--- NOTE | 2017-11-24 10:28 | CP.PCM.PN ---
Subjective - Date & Time of Evaluation Date of Evaluation: 11/24/17 Time of Evaluation: 10:28 - Subjective Subjective: Mr. White was seen and examined at the bedside in ICU. He remains on mechanical ventilator on PRVC mode. His pupils are slight mydriasis 4mm bilaterally, non- reactive to light accommodation, + gag reflex, withdraws from pain stimuli, but decelebrate which is a decline from previous examination. He used to raise his hand or feet to withdraw from pain, GCS-4T. He also breath over the set vent. settings. He has bilateral lower extremities mottling until the knees,He is tolerating his NGT feedings.He had episode of febrile episode with t- max 100.2. There was no untoward events overnight. Objective - Vital Signs/Intake and Output Vital Signs (last 24 hours): Temp Pulse Resp BP Pulse Ox 100.2 F H 77 11 L 140/75 100 11/24/17 08:00 11/24/17 08:00 11/24/17 08:00 11/24/17 08:00 11/24/17 08:00 Intake and Output: 11/24/17 11/24/17 06:59 18:59 Intake Total 1500 Output Total 900 Balance 600 - Medications Medications: Current Medications Acetaminophen (Tylenol 650mg/20.3ml Solution Ud) 650 mg PO Q6 PRN PRN Reason: Fever >100.4 Last Admin: 11/23/17 15:20 Dose: 650 mg Acetaminophen (Tylenol 650 Mg Supp) 650 mg NE Q4 PRN PRN Reason: Fever >100.4 F Last Admin: 11/23/17 00:10 Dose: 650 mg Amantadine HCl (Amantadine 100 Mg Cap) 100 mg PO BID [facility] Last Admin: 11/24/17 08:52 Dose: 100 mg Aspirin (Aspirin Chewable) 81 mg NG DAILY [facility] Last Admin: 11/24/17 08:52 Dose: 81 mg Atorvastatin Calcium (Lipitor) 40 mg PO HS [facility] Last Admin: 11/23/17 21:30 Dose: 40 mg Clopidogrel Bisulfate (Plavix) 75 mg NG DAILY [facility] Last Admin: 11/24/17 08:53 Dose: 75 mg Famotidine (Famotidine) 20 mg IVP Q12 [facility] Last Admin: 11/24/17 08:52 Dose: 20 mg Folic Acid (Folic Acid) 1 mg GT DAILY [facility] Last Admin: 11/24/17 08:52 Dose: 1 mg Piperacillin Sod/Tazobactam (Sod 3.375 gm/ Sodium Chloride) 100 mls @ 100 mls/ hr IVPB Q6 [facility] PRN Reason: Protocol Last Admin: 11/24/17 04:16 Dose: 100 mls/hr Vancomycin HCl 1 gm/ Sodium (Chloride) 250 mls @ 166.667 mls/hr IVPB DAILY [facility] PRN Reason: Protocol Last Admin: 11/24/17 08:53 Dose: 166.667 mls/hr Thiamine HCl (Vitamin B1 Tab) 100 mg NG DAILY [facility] Last Admin: 11/24/17 08:53 Dose: 100 mg - Labs Labs: 11/24/17 06:45 11/24/17 06:45 PT 11.6 Seconds (9.8-13.1) 11/15/17 08:15 INR 1.0 (0.9-1.2) 11/15/17 08:15 APTT 29.7 Seconds (25.6-37.1) 11/15/17 08:15 - Constitutional Appears: No Acute Distress - Head Exam Head Exam: NORMAL INSPECTION - Eye Exam Pupil Exam: Fixed, Mydriatic Additional comments: 4 mm bilaterally. - Neurological Exam Neuro motor strength exam: Left Upper Extremity: 0, Right Upper Extremity: 0, Left Lower Extremity: 0, Right Lower Extremity: 0 Additional comments: gcs- 4T Assessment and Plan (1) Ischemic stroke Assessment & Plan: Case discussed with DR. Price, continue all current medical regimen. Recommend head of bed elevated, blood pressure control, normothermic. Recommend palliative care . Status: Acute
--- NOTE | 2017-11-24 11:30 | PCM.PROC ---
<Mich Garcia - Last Filed: 11/24/17 11:28> Procedures Attestation:: I certify that I have explained the specified Operation(s) or Procedure(s), risks, benefits and reasonable alternatives to the Patient and/or other person responsible. The opportunity was given to ask questions and all questions answered - Central Line Placement Right Internal Jugular Triple Lumen Catheter Aseptic technique was employed throughout the procedure: Hand Hygiene done prior to procedure, Full sterile barriers (mask, hair cover, sterile gown, sterile gloves), Full body sterile drape, Chloraprep Antiseptic: 30 second prep for IJ or SC sites CVP Time Out Performed: Yes Pt. Placed on Pulse Ox Monitor: Yes Central Line Prep: Chlorhexidine-Alcohol Combination Ultrasound Used for Placement: No Central Line Lumen Inserted: triple Central Line Length: 20 cm Post Procedure: Sutured in Place, Good Blood Return, All Ports Aspirated, Flushed, Capped, Sterile Dressing Applied Secured by: Suture Post procedure dressing: Clear vapor permeable, Chlorhexidine disc (Biopatch) Post Procedure X-Ray: Yes Patient Tolerated Procedure: Well Immediate Complications: None Additional Comments: right internal jugular vein line placed. Time out 11:00am. No immediate complications. <Talib Montejo - Last Filed: 11/24/17 12:08> Procedures Attestation:: I certify that I have explained the specified Operation(s) or Procedure(s), risks, benefits and reasonable alternatives to the Patient and/or other person responsible. The opportunity was given to ask questions and all questions answered - Central Line Placement Right Internal Jugular Triple Lumen Catheter Additional Comments: Procedure supervised in its entirety at the bedside, as performed by Resident Dr. Chastity Garcia. Post-procedure CXR shows satisfactory placement of tip of TLC in distal SVC, no pneumothorax seen. Overall, patient tolerated procedure well.
--- NOTE | 2017-11-24 12:52 | RAD ---
HISTORY: Right internal jugular catheter placed COMPARISON: 11/24/2017. Time of the most recent examination: 04:44. FINDINGS: LUNGS: Stable infiltrates left lung. PLEURA: No significant pleural effusion identified, no pneumothorax apparent. CARDIOVASCULAR: No radiographic findings to suggest acute or significant cardiovascular disease. Venous access catheter in satisfactory position. OSSEOUS STRUCTURES: No significant abnormalities. VISUALIZED UPPER ABDOMEN: Normal. OTHER FINDINGS: Stable position of endotracheal tube and nasogastric tube. IMPRESSION: No adverse findings, no pneumothorax following right IJ catheter placement
[2017-11-24] MEDS: Acetaminophen 650mg/20.3ml solution UD PO PRN (20:00)
[2017-11-25] MEDS: Acetaminophen 650mg/20.3ml solution UD PO PRN ×2 (00:57→09:22)
[2017-11-25] MEDS: Piperacillin/Tazobact 3.375 GM in Sodium Chloride 0.9% 100 ML IVPB SCH ×4 (02:59→21:04)
[2017-11-25 05:20] LABS: ABG ALLEN TEST YES; ARTERIAL BLOOD GAS HEMOGLOBIN 12.9 g/dL (11.7-17.4); ARTERIAL BLOOD GAS O2 CAPACITY 17.6 mL/dL (16-24); ARTERIAL BLOOD GAS O2 CONTENT 16.9 ML/dL (15-23); ARTERIAL BLOOD GAS O2 SAT 96.1 % (95-98); ARTERIAL BLOOD GAS PCO2 41 mm/Hg (35-45); ARTERIAL BLOOD GAS PH 7.45 (7.35-7.45); ARTERIAL BLOOD GAS PO2 66 mm/Hg (80-100); ARTERIAL BLOOD GAS TCO2 29.8 mmol/L (22-28)
[2017-11-25 05:25] LABS: HEMOGLOBIN 10.6 g/dL (12.0-18.0); MEAN CORPUSCULAR HEMOGLOBIN 30.1 pg (27.0-31.0); MEAN CORPUSCULAR HGB CONC 32.7 g/dL (33.0-37.0); RBC 3.51 Mil/uL (4.40-5.90); RED CELL DISTRIBUTION WIDTH 14.9 % (11.5-14.5); WHITE BLOOD COUNT 13.5 K/uL (4.8-10.8)
--- NOTE | 2017-11-25 07:26 | RAD ---
HISTORY: intubated COMPARISON: Portable chest 11/24/2017. FINDINGS: A transverse line and nasogastric tube do not appear significantly changed in position. ET tube is also stable, terminating above the level of clavicles in the plane of the trachea. Clinically correlate as to the to advance the ET tube further into the trachea. LUNGS: No active right sided pulmonary disease. Persistent opacification of the left base is appreciated on the basis of airspace disease and left pleural effusion potentially. No right-sided pleural effusion. No pneumothorax bilaterally. Patchy left perihilar airspace disease appears to be developing. CARDIOVASCULAR: Normal. OSSEOUS STRUCTURES: No significant abnormalities. VISUALIZED UPPER ABDOMEN: Normal. OTHER FINDINGS: None. IMPRESSION: Interval increase in left-sided airspace disease including left perihilar region with left retrocardiac opacity unchanged. Left pleural effusion unchanged within the right chest clear.
--- NOTE | 2017-11-25 09:48 | CP.CCUPN ---
<Mich Garcia - Last Filed: 11/25/17 10:24> CCU Subjective - Physician Review Subjective (Free Text): pt seen and examined at bedside this morning. Intubated, triggering vent, on PRVC rate of 12, FIO2 100, Vt 450, PEEP 5. Remains febrile overnight, 101.1 F. BP stable. Labs reviewed, Leukocytosis improving. Comatose. Pupils remain fixed and dilated. No corneal reflex identified. Gag reflex remains. Decerebrate posturing no longer appreciated on exam. Reacts to painful stimuli. Reflexes diminished b/l. CCU Objective - Vital Signs / Intake & Output Vital Signs (Last 4 hours): Vital Signs Temp Pulse Resp BP Pulse Ox 11/25/17 09:22 101.1 F H 11/25/17 08:00 101.1 F H 88 12 128/69 100 11/25/17 06:27 89 11 L 128/70 100 11/25/17 06:00 88 14 126/72 100 Intake and Output (Last 8hrs): Intake & Output 11/24/17 11/25/17 11/25/17 22:59 06:59 14:59 Intake Total 900 900 100 Output Total 900 1800 Balance 0 -900 100 Weight 52.617 kg Intake: IV 120 240 40 Intake, Piggyback 200 Oral 120 Tube Feeding 180 360 60 TPN/PPN 120 Free Water Flush 160 300 Output: Urine 900 1800 2-way Urethral 900 1800 Other: # Voids 2-way Urethral 2 # Bowel Movements 0 - Physical Exam Head: Positive for: Atraumatic, Normocephalic. Negative for: Ecchymosis, Abrasion, Laceration Pupils: Positive for: Non-Reactive, Other (fixed and dilated ) Extroacular Muscles: Negative for: EOMI, Gaze Palsy Conjunctiva: Positive for: Normal. Negative for: Injected, Icteric Ears: Positive for: Normal Mouth: Positive for: Dry. Negative for: Normal Teeth (missing dentition ) Pharnyx: Positive for: Normal. Negative for: ERYTHEMA, EXUDATE, TONSILS ENLARGED Neck: Positive for: Normal Range of Motion, Trachea Midline, Other (R. IJ line) . Negative for: Meningeal Signs, JVD, Lymphadenopathy Respiratory/Chest: Positive for: Good Air Exchange. Negative for: Clear to Auscultation (gugrling sounds, distant breath sounds b/l), Respiratory Distress , Decreased Breath Sounds, Rales, Retracting, Rhonchi, Tachypneic, Tender to Palpation Cardiovascular: Positive for: Normal S1, S2, Peripheal Pulses Present (present but faint ), Tachycardic. Negative for: Regular Rate and Rhythm, Murmurs, Irregular Rhythm, Rub, Gallop, Muffled Abdomen: Positive for: Normal Bowel Sounds. Negative for: Tenderness, Distention, Peritoneal Signs Upper Extremity: Positive for: Normal Inspection, Capillary Refill < 2s. Negative for: Cyanosis, Edema Lower Extremity: Positive for: Normal Inspection, NORMAL PULSES, Cyanosis, Neurovascularly Intact, Capillary Refill < 2 s. Negative for: Edema, CALF TENDERNESS, Swelling, Erythema, Temperature Abnormalties Neurological: Positive for: Gait Normal, Other (intermittent decerebrate posturing, less frequent today. ). Negative for: GCS=15 (GCS: 4T), CN II-XII Intact, Speech Normal (unable to evaluate ), Motor Func Grossly Intact, Normal Sensory Function, Normal Cerebellar Funct, Norm Deep Tendon Reflexes (diminished ) Skin: Positive for: Dry, Cold (extremities ), Other (mottled ). Negative for: Normal Color (vitiligo?, chronic skin changes from weather exposure and recurrent friction/trauma ), Laceration Lymphatic: Negative for: Cervical Adenopathy Psychiatric: Positive for: Other (comatose). Negative for: Alert, Oriented x 3 , Normal Insight, Normal Concentration - Medications Active Medications: Active Medications Generic Name Dose Route Start Last Admin Trade Name Freq PRN Reason Stop Dose Admin Acetaminophen 650 mg 11/20/17 21:14 11/25/17 09:22 Tylenol 650mg/20.3ml Solution Ud PO 650 mg Q6 PRN Administration Fever >100.4 Acetaminophen 650 mg 11/22/17 14:09 11/23/17 00:10 Tylenol 650 Mg Supp MS 650 mg Q4 PRN Administration Fever >100.4 F Amantadine HCl 100 mg 11/17/17 17:00 11/25/17 08:23 Amantadine 100 Mg Cap PO 100 mg BID ZIA Administration Aspirin 81 mg 11/19/17 09:00 11/25/17 08:23 Aspirin Chewable NG 81 mg DAILY ZIA Administration Atorvastatin Calcium 40 mg 11/17/17 22:00 11/24/17 21:03 Lipitor PO 40 mg HS ZIA Administration Clopidogrel Bisulfate 75 mg 11/18/17 09:45 11/25/17 08:23 Plavix NG 75 mg DAILY ZIA Administration Famotidine 20 mg 11/22/17 16:14 11/25/17 08:25 Famotidine IVP 20 mg Q12 ZIA Administration Folic Acid 1 mg 11/17/17 09:00 11/25/17 08:23 Folic Acid GT 1 mg DAILY ZIA Administration Piperacillin Sod/Tazobactam 100 mls @ 100 mls/hr 11/21/17 04:00 11/25/17 09: 23 Sod 3.375 gm/ Sodium Chloride IVPB 100 mls/hr Q6 ZIA Administration Protocol Vancomycin HCl 1 gm/ Sodium 250 mls @ 166.667 mls/hr 11/22/17 09:00 11/25/17 08:21 Chloride IVPB 166.667 mls/hr DAILY ZIA Administration Protocol Thiamine HCl 100 mg 11/17/17 13:45 11/25/17 08:23 Vitamin B1 Tab NG 100 mg DAILY ZIA Administration - Patient Studies Lab Studies: Microbiology Studies 11/22/17 08:48 Blood Culture - Preliminary Blood NO GROWTH AFTER 3 DAYS 11/22/17 08:48 Blood Culture - Preliminary Blood NO GROWTH AFTER 3 DAYS 11/19/17 21:00 Blood Culture - Final Blood-Venous NO GROWTH AFTER 5 DAYS Gram Stain - Final TEST NOT PERFORMED 11/19/17 21:00 Blood Culture - Final Blood-Venous NO GROWTH AFTER 5 DAYS Gram Stain - Final TEST NOT PERFORMED 11/22/17 13:48 Urine Culture - Final Urine,Hannah No Growth (<1,000 CFU/ML) 11/22/17 13:48 Gram Stain - Final Trachasp Sputum Culture - Final Citrobacter Diversus Lab Studies 11/25/17 11/25/17 11/25/17 Range/Units 05:17 05:05 05:00 WBC 13.5 H (4.8-10.8) K/uL RBC 3.51 L (4.40-5.90) Mil/uL Hgb 10.6 L (12.0-18.0) g/dL Hct 32.3 L (35.0-51.0) % MCV 92.0 (80.0-94.0) fl MCH 30.1 (27.0-31.0) pg MCHC 32.7 L (33.0-37.0) g/dL RDW 14.9 H (11.5-14.5) % Plt Count 83 L (130-400) K/uL pCO2 41 (35-45) mm/Hg pO2 66 L (80-100) mm/Hg HCO3 28.0 (21-28) mmol/L ABG pH 7.45 (7.35-7.45) ABG Total CO2 29.8 H (22-28) mmol/L ABG O2 Saturation 96.1 (95-98) % ABG O2 Content 16.9 (15-23) ML/dL ABG Base Excess 4.1 H (-2.0-3.0) mmol/L ABG Hemoglobin 12.9 (11.7-17.4) g/dL ABG Carboxyhemoglobin 2.0 H (0.5-1.5) % POC ABG HHb (Measured) 3.8 (0.0-5.0) % ABG Methemoglobin 1.2 (0.0-3.0) % ABG O2 Capacity 17.6 (16-24) mL/dL Roberto Test Yes A-a O2 Difference 168.0 mm/Hg Hgb O2 Saturation 93.0 L (95.0-98.0) % Vent Mode A/c Mechanical Rate 12 FiO2 40.0 % Tidal Volume 450 PEEP 5 POC Glucose (mg/dL) 128 H (65-110) mg/dL 11/24/17 11/24/17 11/24/17 Range/Units 21:22 16:57 12:01 WBC (4.8-10.8) K/uL RBC (4.40-5.90) Mil/uL Hgb (12.0-18.0) g/dL Hct (35.0-51.0) % MCV (80.0-94.0) fl MCH (27.0-31.0) pg MCHC (33.0-37.0) g/dL RDW (11.5-14.5) % Plt Count (130-400) K/uL pCO2 (35-45) mm/Hg pO2 (80-100) mm/Hg HCO3 (21-28) mmol/L ABG pH (7.35-7.45) ABG Total CO2 (22-28) mmol/L ABG O2 Saturation (95-98) % ABG O2 Content (15-23) ML/dL ABG Base Excess (-2.0-3.0) mmol/L ABG Hemoglobin (11.7-17.4) g/dL ABG Carboxyhemoglobin (0.5-1.5) % POC ABG HHb (Measured) (0.0-5.0) % ABG Methemoglobin (0.0-3.0) % ABG O2 Capacity (16-24) mL/dL Roberto Test A-a O2 Difference mm/Hg Hgb O2 Saturation (95.0-98.0) % Vent Mode Mechanical Rate FiO2 % Tidal Volume PEEP POC Glucose (mg/dL) 101 116 H 116 H (65-110) mg/dL Laboratory Results - last 24 hr 11/24/17 11/24/17 11/24/17 12:01 16:57 21:22 WBC RBC Hgb Hct MCV MCH MCHC RDW Plt Count pCO2 pO2 HCO3 ABG pH ABG Total CO2 ABG O2 Saturation ABG O2 Content ABG Base Excess ABG Hemoglobin ABG Carboxyhemoglobin POC ABG HHb (Measured) ABG Methemoglobin ABG O2 Capacity Roberto Test A-a O2 Difference Hgb O2 Saturation Vent Mode Mechanical Rate FiO2 Tidal Volume PEEP POC Glucose (mg/dL) 116 H 116 H 101 11/25/17 11/25/17 11/25/17 05:00 05:05 05:17 WBC 13.5 H RBC 3.51 L Hgb 10.6 L Hct 32.3 L MCV 92.0 MCH 30.1 MCHC 32.7 L RDW 14.9 H Plt Count 83 L pCO2 41 pO2 66 L HCO3 28.0 ABG pH 7.45 ABG Total CO2 29.8 H ABG O2 Saturation 96.1 ABG O2 Content 16.9 ABG Base Excess 4.1 H ABG Hemoglobin 12.9 ABG Carboxyhemoglobin 2.0 H POC ABG HHb (Measured) 3.8 ABG Methemoglobin 1.2 ABG O2 Capacity 17.6 Roberto Test Yes A-a O2 Difference 168.0 Hgb O2 Saturation 93.0 L Vent Mode A/c Mechanical Rate 12 FiO2 40.0 Tidal Volume 450 PEEP 5 POC Glucose (mg/dL) 128 H Fingerstick Blood Sugar Results: 128 Review of Systems - Review of Systems Systems not reviewed;Unavailable: Altered Mental Status Critical Care Progress Note - Ventilator Checklist Head of Bed 30 Degrees: Yes Daily Sedation Vacation: No (not sedated) PUD Prophalyxis: Yes DVT Prophylaxis: Yes Oral Care with Chlorhexidine Gluconate {CHG}: Yes - Vent Settings MODE:: PRVC TIDAL VOLUME:: 450 RESP RATE:: 12 FIO2:: 100 PEEP:: 5 - Extremities/Vascular Does the Patient have a Central Venous Catheter?: Yes Insertion Site: Internal Jugular Vein Does the Patient need a Central Venous Catheter?: Yes Does the Patient have a Hannah Catheter?: Yes Does the Patient need a Hannah Catheter?: Yes Catheter Insertion Criteria: Need for accurate measurement of output in critically ill patient - Prophylaxis GI Prophylaxis GI: PPI - Prophylaxis DVT Prophylaxis DVT: Lovenox - Nutrition Nutrition: Nutrition Category Date Time Status NPO Diet [DIET] Diets 11/15/17 Lunch Active Assessment/Plan - Assessment and Plan (Free Text) Assessment: 63 y/o male, with unobtainable medical history, admitted to hospital for AMS of uncertain etiology, transferred to ICU due to worsening mental status, tachypnea , and desaturation, found to have 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 Plan: 1) Sepsis secondary to Aspiration Pneumonitis -CXR today: Left basilar consolidation and/or pleural effusion silhouetting left hemidiaphragm. -lactic acid: 0.9 -sputum: citrobacter diversus -ID Consult: c/w IV Vanc/Zosyn -fever control with Acetominophen -leukocytosis improving today 13.5 -repeat AM labs/CXR 2) Left Pleural Effusion/Infiltrate -currently on IV Zosyn 3.375 Q6H -monitor, repeat CXR in AM 3) Altered Mental Status secondary to Acute Pontine infarct with extension to midbrain -brain MRI: acute pontine infaract with extension to midbrain. Smaller cerebellar infarcts b/l -Intubated -c/w respiratory support -aspirin/plavix as per neuro -atorvastatin 40mg -amantadine -poor prognosis/Ethic commitee review 4) Respiratory Failure secondary to AMS -2/2 to Acute CVA, now with aspiration pneumonitis -intubated -continues to trigger vent -PRVC mode currently at 12/100/450/5 -ABG on 11/25: pH 7.45, PCO2 41, PO2 66. 5) Thrombocytopenia: -platelets: 83 today -likely 2/2 to septic shock/abx -monitor, repeat labs in AM 6) Urinary Tract Infection -c/w IV Vanc (Cx: strep viridans) -Vanco trough pending 7) Prophylaxis -Head of bed elevation @ 30 degrees -Protonix 40mg IVP QD -Lovenox 40mg SC QD -SCDs 8) Code Status: -Full code <Hortencia Ha - Last Filed: 11/25/17 14:56> CCU Objective - Vital Signs / Intake & Output Vital Signs (Last 4 hours): Vital Signs Temp Pulse Resp BP Pulse Ox 11/25/17 14:00 95 H 14 161/86 H 100 11/25/17 13:00 95 H 12 115/72 100 11/25/17 12:00 100.3 F H 80 11 L 116/72 100 11/25/17 11:00 100.3 F H 87 14 131/79 100 Intake and Output (Last 8hrs): Intake & Output 11/24/17 11/25/17 11/25/17 22:59 06:59 14:59 Intake Total 435 556 7277 Output Total 900 1800 Balance 0 -900 1569 Weight 116 lb Intake: IV 120 240 240 Intake, Piggyback 200 450 Oral 120 Tube Feeding 180 360 429 TPN/PPN 120 Free Water Flush 160 300 450 Output: Urine 900 1800 2-way Urethral 900 1800 Other: # Voids 2-way Urethral 2 # Bowel Movements 0 - Medications Active Medications: Active Medications Generic Name Dose Route Start Last Admin Trade Name Freq PRN Reason Stop Dose Admin Acetaminophen 650 mg 11/22/17 14:09 11/23/17 00:10 Tylenol 650 Mg Supp MS 650 mg Q4 PRN Administration Fever >100.4 F Amantadine HCl 100 mg 11/17/17 17:00 11/25/17 08:23 Amantadine 100 Mg Cap PO 100 mg BID ZIA Administration Aspirin 81 mg 11/19/17 09:00 11/25/17 08:23 Aspirin Chewable NG 81 mg DAILY ZIA Administration Atorvastatin Calcium 40 mg 11/17/17 22:00 11/24/17 21:03 Lipitor PO 40 mg HS ZIA Administration Clopidogrel Bisulfate 75 mg 11/18/17 09:45 11/25/17 08:23 Plavix NG 75 mg DAILY ZIA Administration Famotidine 20 mg 11/22/17 16:14 11/25/17 08:25 Famotidine IVP 20 mg Q12 ZIA Administration Folic Acid 1 mg 11/17/17 09:00 11/25/17 08:23 Folic Acid GT 1 mg DAILY ZIA Administration Piperacillin Sod/Tazobactam 100 mls @ 100 mls/hr 11/21/17 04:00 11/25/17 09: 23 Sod 3.375 gm/ Sodium Chloride IVPB 100 mls/hr Q6 ZIA Administration Protocol Vancomycin HCl 1 gm/ Sodium 250 mls @ 166.667 mls/hr 11/22/17 09:00 11/25/17 08:21 Chloride IVPB 166.667 mls/hr DAILY ZIA Administration Protocol Potassium Chloride 40 meq 11/25/17 12:15 11/25/17 12:17 Potassium Chloride Oral Soln PO 11/25/17 16:16 40 meq Q4H ZIA Administration Thiamine HCl 100 mg 11/17/17 13:45 11/25/17 08:23 Vitamin B1 Tab NG 100 mg DAILY ZIA Administration - Patient Studies Lab Studies: Microbiology Studies 11/22/17 08:48 Blood Culture - Preliminary Blood NO GROWTH AFTER 3 DAYS 11/22/17 08:48 Blood Culture - Preliminary Blood NO GROWTH AFTER 3 DAYS 11/19/17 21:00 Blood Culture - Final Blood-Venous NO GROWTH AFTER 5 DAYS Gram Stain - Final TEST NOT PERFORMED 11/19/17 21:00 Blood Culture - Final Blood-Venous NO GROWTH AFTER 5 DAYS Gram Stain - Final TEST NOT PERFORMED 11/22/17 13:48 Urine Culture - Final Urine,Hannah No Growth (<1,000 CFU/ML) Lab Studies 11/25/17 11/25/17 11/25/17 Range/Units 11:39 10:45 10:45 WBC (4.8-10.8) K/uL RBC (4.40-5.90) Mil/uL Hgb (12.0-18.0) g/dL Hct (35.0-51.0) % MCV (80.0-94.0) fl MCH (27.0-31.0) pg MCHC (33.0-37.0) g/dL RDW (11.5-14.5) % Plt Count (130-400) K/uL pCO2 (35-45) mm/Hg pO2 (80-100) mm/Hg HCO3 (21-28) mmol/L ABG pH (7.35-7.45) ABG Total CO2 (22-28) mmol/L ABG O2 Saturation (95-98) % ABG O2 Content (15-23) ML/dL ABG Base Excess (-2.0-3.0) mmol/L ABG Hemoglobin (11.7-17.4) g/dL ABG Carboxyhemoglobin (0.5-1.5) % POC ABG HHb (Measured) (0.0-5.0) % ABG Methemoglobin (0.0-3.0) % ABG O2 Capacity (16-24) mL/dL Roberto Test A-a O2 Difference mm/Hg Hgb O2 Saturation (95.0-98.0) % Vent Mode Mechanical Rate FiO2 % Tidal Volume PEEP Sodium 136 (132-148) mmol/l Potassium 3.3 L (3.6-5.0) MMOL/L Chloride 98 (98-107) mmol/L Carbon Dioxide 29 (22-30) mmol/L Anion Gap 12 (10-20) BUN 10 (9-20) mg/dl Creatinine 0.6 L (0.8-1.5) mg/dl Est GFR ( Amer) > 60 Est GFR (Non-Af Amer) > 60 POC Glucose (mg/dL) 112 H (65-110) mg/dL Random Glucose 127 H (75-110) mg/dL Calcium 7.3 L (8.4-10.2) mg/dL Total Bilirubin 0.8 (0.2-1.3) mg/dl AST 54 (17-59) U/L ALT 45 (21-72) U/L Alkaline Phosphatase 66 (38-126) U/L Total Protein 6.2 L (6.3-8.2) G/DL Albumin 2.6 L (3.5-5.0) g/dL Globulin 3.6 (2.2-3.9) gm/dL Albumin/Globulin Ratio 0.7 L (1.0-2.1) Vancomycin Trough 12.9 H (5.0-10.0) ug/mL 0511/25/17 11/25/17 Range/Units 05:17 05:05 05:00 WBC 13.5 H (4.8-10.8) K/uL RBC 3.51 L (4.40-5.90) Mil/uL Hgb 10.6 L (12.0-18.0) g/dL Hct 32.3 L (35.0-51.0) % MCV 92.0 (80.0-94.0) fl MCH 30.1 (27.0-31.0) pg MCHC 32.7 L (33.0-37.0) g/dL RDW 14.9 H (11.5-14.5) % Plt Count 83 L (130-400) K/uL pCO2 41 (35-45) mm/Hg pO2 66 L (80-100) mm/Hg HCO3 28.0 (21-28) mmol/L ABG pH 7.45 (7.35-7.45) ABG Total CO2 29.8 H (22-28) mmol/L ABG O2 Saturation 96.1 (95-98) % ABG O2 Content 16.9 (15-23) ML/dL ABG Base Excess 4.1 H (-2.0-3.0) mmol/L ABG Hemoglobin 12.9 (11.7-17.4) g/dL ABG Carboxyhemoglobin 2.0 H (0.5-1.5) % POC ABG HHb (Measured) 3.8 (0.0-5.0) % ABG Methemoglobin 1.2 (0.0-3.0) % ABG O2 Capacity 17.6 (16-24) mL/dL Roberto Test Yes A-a O2 Difference 168.0 mm/Hg Hgb O2 Saturation 93.0 L (95.0-98.0) % Vent Mode A/c Mechanical Rate 12 FiO2 40.0 % Tidal Volume 450 PEEP 5 Sodium (132-148) mmol/l Potassium (3.6-5.0) MMOL/L Chloride (98-107) mmol/L Carbon Dioxide (22-30) mmol/L Anion Gap (10-20) BUN (9-20) mg/dl Creatinine (0.8-1.5) mg/dl Est GFR ( Amer) Est GFR (Non-Af Amer) POC Glucose (mg/dL) 128 H (65-110) mg/dL Random Glucose (75-110) mg/dL Calcium (8.4-10.2) mg/dL Total Bilirubin (0.2-1.3) mg/dl AST (17-59) U/L ALT (21-72) U/L Alkaline Phosphatase (38-126) U/L Total Protein (6.3-8.2) G/DL Albumin (3.5-5.0) g/dL Globulin (2.2-3.9) gm/dL Albumin/Globulin Ratio (1.0-2.1) Vancomycin Trough (5.0-10.0) ug/mL 11/24/17 11/24/17 Range/Units 21:22 16:57 WBC (4.8-10.8) K/uL RBC (4.40-5.90) Mil/uL Hgb (12.0-18.0) g/dL Hct (35.0-51.0) % MCV (80.0-94.0) fl MCH (27.0-31.0) pg MCHC (33.0-37.0) g/dL RDW (11.5-14.5) % Plt Count (130-400) K/uL pCO2 (35-45) mm/Hg pO2 (80-100) mm/Hg HCO3 (21-28) mmol/L ABG pH (7.35-7.45) ABG Total CO2 (22-28) mmol/L ABG O2 Saturation (95-98) % ABG O2 Content (15-23) ML/dL ABG Base Excess (-2.0-3.0) mmol/L ABG Hemoglobin (11.7-17.4) g/dL ABG Carboxyhemoglobin (0.5-1.5) % POC ABG HHb (Measured) (0.0-5.0) % ABG Methemoglobin (0.0-3.0) % ABG O2 Capacity (16-24) mL/dL Roberto Test A-a O2 Difference mm/Hg Hgb O2 Saturation (95.0-98.0) % Vent Mode Mechanical Rate FiO2 % Tidal Volume PEEP Sodium (132-148) mmol/l Potassium (3.6-5.0) MMOL/L Chloride (98-107) mmol/L Carbon Dioxide (22-30) mmol/L Anion Gap (10-20) BUN (9-20) mg/dl Creatinine (0.8-1.5) mg/dl Est GFR ( Amer) Est GFR (Non-Af Amer) POC Glucose (mg/dL) 101 116 H (65-110) mg/dL Random Glucose (75-110) mg/dL Calcium (8.4-10.2) mg/dL Total Bilirubin (0.2-1.3) mg/dl AST (17-59) U/L ALT (21-72) U/L Alkaline Phosphatase (38-126) U/L Total Protein (6.3-8.2) G/DL Albumin (3.5-5.0) g/dL Globulin (2.2-3.9) gm/dL Albumin/Globulin Ratio (1.0-2.1) Vancomycin Trough (5.0-10.0) ug/mL Laboratory Results - last 24 hr 11/24/17 11/24/17 11/25/17 16:57 21:22 05:00 WBC 13.5 H RBC 3.51 L Hgb 10.6 L Hct 32.3 L MCV 92.0 MCH 30.1 MCHC 32.7 L RDW 14.9 H Plt Count 83 L pCO2 pO2 HCO3 ABG pH ABG Total CO2 ABG O2 Saturation ABG O2 Content ABG Base Excess ABG Hemoglobin ABG Carboxyhemoglobin POC ABG HHb (Measured) ABG Methemoglobin ABG O2 Capacity Roberto Test A-a O2 Difference Hgb O2 Saturation Vent Mode Mechanical Rate FiO2 Tidal Volume PEEP Sodium Potassium Chloride Carbon Dioxide Anion Gap BUN Creatinine Est GFR ( Amer) Est GFR (Non-Af Amer) POC Glucose (mg/dL) 116 H 101 Random Glucose Calcium Total Bilirubin AST ALT Alkaline Phosphatase Total Protein Albumin Globulin Albumin/Globulin Ratio Vancomycin Trough 11/25/17 11/25/17 11/25/17 05:05 05:17 10:45 WBC RBC Hgb Hct MCV MCH MCHC RDW Plt Count pCO2 41 pO2 66 L HCO3 28.0 ABG pH 7.45 ABG Total CO2 29.8 H ABG O2 Saturation 96.1 ABG O2 Content 16.9 ABG Base Excess 4.1 H ABG Hemoglobin 12.9 ABG Carboxyhemoglobin 2.0 H POC ABG HHb (Measured) 3.8 ABG Methemoglobin 1.2 ABG O2 Capacity 17.6 Roberto Test Yes A-a O2 Difference 168.0 Hgb O2 Saturation 93.0 L Vent Mode A/c Mechanical Rate 12 FiO2 40.0 Tidal Volume 450 PEEP 5 Sodium Potassium Chloride Carbon Dioxide Anion Gap BUN Creatinine Est GFR ( Amer) Est GFR (Non-Af Amer) POC Glucose (mg/dL) 128 H Random Glucose Calcium Total Bilirubin AST ALT Alkaline Phosphatase Total Protein Albumin Globulin Albumin/Globulin Ratio Vancomycin Trough 12.9 H 11/25/17 11/25/17 10:45 11:39 WBC RBC Hgb Hct MCV MCH MCHC RDW Plt Count pCO2 pO2 HCO3 ABG pH ABG Total CO2 ABG O2 Saturation ABG O2 Content ABG Base Excess ABG Hemoglobin ABG Carboxyhemoglobin POC ABG HHb (Measured) ABG Methemoglobin ABG O2 Capacity Roberto Test A-a O2 Difference Hgb O2 Saturation Vent Mode Mechanical Rate FiO2 Tidal Volume PEEP Sodium 136 Potassium 3.3 L Chloride 98 Carbon Dioxide 29 Anion Gap 12 BUN 10 Creatinine 0.6 L Est GFR ( Amer) > 60 Est GFR (Non-Af Amer) > 60 POC Glucose (mg/dL) 112 H Random Glucose 127 H Calcium 7.3 L Total Bilirubin 0.8 AST 54 ALT 45 Alkaline Phosphatase 66 Total Protein 6.2 L Albumin 2.6 L Globulin 3.6 Albumin/Globulin Ratio 0.7 L Vancomycin Trough Critical Care Progress Note - Nutrition Nutrition: Nutrition Category Date Time Status NPO Diet [DIET] Diets 11/15/17 Lunch Active Assessment/Plan - Assessment and Plan (Free Text) Plan: Above resident's note reviewed and verified. I agree with above documentation. 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 Patient is not on pressors. -tolerating Ng tube feeds -poor neurological outcome -obtain neurology input -ID Dr. Anderson input appreciated -obtain palliative and ethics committee as patient has no relatives and goals of care to be determiened. -patient will benefit from early trach and peg -continue dvt/pud ppx -prognosis very poor given poor neurological outcome d/w CIU team (+)central line (+) d/c hannah and obtain bladder scan q8hrs - Date & Time Date: 11/25/17 Time: 14:56
--- NOTE | 2017-11-25 10:36 | CP.PCM.PN ---
Subjective - Date & Time of Evaluation Date of Evaluation: 11/25/17 Time of Evaluation: 10:36 - Subjective Subjective: Mr. White was seen and examined at the bedside in ICU. He remains on mechanical ventilator on PRVC mode. His pupils are slight mydriasis 4mm bilaterally, non- reactive to light accommodation, + gag reflex, withdraws from pain stimuli, GCS- 4T. He also breath over the set vent. settings. He has bilateral lower extremities mottling until the knees,He is tolerating his NGT feedings. There was no untoward events overnight. Objective - Vital Signs/Intake and Output Vital Signs (last 24 hours): Temp Pulse Resp BP Pulse Ox 100.5 F H 85 12 128/79 100 11/25/17 10:00 11/25/17 10:00 11/25/17 10:00 11/25/17 10:00 11/25/17 10:00 Intake and Output: 11/25/17 11/25/17 06:59 18:59 Intake Total 1310 809 Output Total 1800 Balance -490 809 - Medications Medications: Current Medications Acetaminophen (Tylenol 650 Mg Supp) 650 mg UT Q4 PRN PRN Reason: Fever >100.4 F Last Admin: 11/23/17 00:10 Dose: 650 mg Amantadine HCl (Amantadine 100 Mg Cap) 100 mg PO BID [facility] Last Admin: 11/25/17 08:23 Dose: 100 mg Aspirin (Aspirin Chewable) 81 mg NG DAILY [facility] Last Admin: 11/25/17 08:23 Dose: 81 mg Atorvastatin Calcium (Lipitor) 40 mg PO HS [facility] Last Admin: 11/24/17 21:03 Dose: 40 mg Clopidogrel Bisulfate (Plavix) 75 mg NG DAILY [facility] Last Admin: 11/25/17 08:23 Dose: 75 mg Famotidine (Famotidine) 20 mg IVP Q12 [facility] Last Admin: 11/25/17 08:25 Dose: 20 mg Folic Acid (Folic Acid) 1 mg GT DAILY [facility] Last Admin: 11/25/17 08:23 Dose: 1 mg Piperacillin Sod/Tazobactam (Sod 3.375 gm/ Sodium Chloride) 100 mls @ 100 mls/ hr IVPB Q6 [facility] PRN Reason: Protocol Last Admin: 11/25/17 09:23 Dose: 100 mls/hr Vancomycin HCl 1 gm/ Sodium (Chloride) 250 mls @ 166.667 mls/hr IVPB DAILY [facility] PRN Reason: Protocol Last Admin: 11/25/17 08:21 Dose: 166.667 mls/hr Thiamine HCl (Vitamin B1 Tab) 100 mg NG DAILY [facility] Last Admin: 11/25/17 08:23 Dose: 100 mg - Labs Labs: 11/25/17 05:00 11/24/17 06:45 PT 11.6 Seconds (9.8-13.1) 11/15/17 08:15 INR 1.0 (0.9-1.2) 11/15/17 08:15 APTT 29.7 Seconds (25.6-37.1) 11/15/17 08:15 - Constitutional Appears: No Acute Distress - Head Exam Head Exam: NORMAL INSPECTION - Eye Exam Pupil Exam: Fixed Additional comments: 4 mm - Neurological Exam Neuro motor strength exam: Left Upper Extremity: 0, Right Upper Extremity: 0, Left Lower Extremity: 0, Right Lower Extremity: 0 Additional comments: GCS 4T Assessment and Plan (1) Ischemic stroke Assessment & Plan: Case discussed with DR. Price, continue all current medical regimen. Recommend head of bed elevated, blood pressure control, normothermic. Recommend palliative care. Recommend repeat EEG to rule out any brain injury. Status: Acute
--- NOTE | 2017-11-25 11:18 | CP.PCM.PN ---
Subjective - Date & Time of Evaluation Date of Evaluation: 11/25/17 Time of Evaluation: 11:00 - Subjective Subjective: Pt remains Comatose with fixed pupils Unresponsive to pain Remains intubated - on Mech Vent Remains febrile Objective - Vital Signs/Intake and Output Vital Signs (last 24 hours): Temp Pulse Resp BP Pulse Ox 100.3 F H 87 14 131/79 100 11/25/17 11:00 11/25/17 11:00 11/25/17 11:00 11/25/17 11:00 11/25/17 11:00 Intake and Output: 11/25/17 11/25/17 06:59 18:59 Intake Total 1310 809 Output Total 1800 Balance -490 809 - Medications Medications: Current Medications Acetaminophen (Tylenol 650 Mg Supp) 650 mg MO Q4 PRN PRN Reason: Fever >100.4 F Last Admin: 11/23/17 00:10 Dose: 650 mg Amantadine HCl (Amantadine 100 Mg Cap) 100 mg PO BID [facility] Last Admin: 11/25/17 08:23 Dose: 100 mg Aspirin (Aspirin Chewable) 81 mg NG DAILY [facility] Last Admin: 11/25/17 08:23 Dose: 81 mg Atorvastatin Calcium (Lipitor) 40 mg PO HS [facility] Last Admin: 11/24/17 21:03 Dose: 40 mg Clopidogrel Bisulfate (Plavix) 75 mg NG DAILY [facility] Last Admin: 11/25/17 08:23 Dose: 75 mg Famotidine (Famotidine) 20 mg IVP Q12 [facility] Last Admin: 11/25/17 08:25 Dose: 20 mg Folic Acid (Folic Acid) 1 mg GT DAILY [facility] Last Admin: 11/25/17 08:23 Dose: 1 mg Piperacillin Sod/Tazobactam (Sod 3.375 gm/ Sodium Chloride) 100 mls @ 100 mls/ hr IVPB Q6 [facility] PRN Reason: Protocol Last Admin: 11/25/17 09:23 Dose: 100 mls/hr Vancomycin HCl 1 gm/ Sodium (Chloride) 250 mls @ 166.667 mls/hr IVPB DAILY [facility] PRN Reason: Protocol Last Admin: 11/25/17 08:21 Dose: 166.667 mls/hr Thiamine HCl (Vitamin B1 Tab) 100 mg NG DAILY [facility] Last Admin: 11/25/17 08:23 Dose: 100 mg - Labs Labs: 11/25/17 05:00 11/24/17 06:45 PT 11.6 Seconds (9.8-13.1) 11/15/17 08:15 INR 1.0 (0.9-1.2) 11/15/17 08:15 APTT 29.7 Seconds (25.6-37.1) 11/15/17 08:15 - Constitutional Appears: Other (Comatose) - Head Exam Head Exam: NORMAL INSPECTION, NORMOCEPHALIC - Eye Exam Eye Exam: absent: PERRL Pupil Exam: Fixed - ENT Exam ENT Exam: Mucous Membranes Dry, Normal External Ear Exam - Neck Exam Neck Exam: absent: Meningismus - Respiratory Exam Respiratory Exam: Rhonchi Additional comments: Intubated on Vent - Cardiovascular Exam Cardiovascular Exam: REGULAR RHYTHM, +S1, +S2 - GI/Abdominal Exam GI & Abdominal Exam: Soft, Normal Bowel Sounds - Extremities Exam Extremities Exam: Normal Capillary Refill, Pedal Edema - Neurological Exam Additional comments: Comatose fixed pupils - Skin Skin Exam: Dry, Normal Color, Warm Assessment and Plan (1) Acute CVA (cerebrovascular accident) Status: Acute (2) Altered mental status Status: Acute (3) Slurring of speech Status: Acute (4) HTN (hypertension) Status: Chronic (5) Acute metabolic encephalopathy Status: Acute (6) Acute respiratory insufficiency Status: Acute (7) DVT prophylaxis Status: Acute - Assessment and Plan (Free Text) Assessment: White male , Tez White , unkempt, unknown PMH was broughtby EMS after he was observed by bystanders falling in the street. Patient was lethargic on admission however arousable , noted to have a facial droop and his speech was slurred. CT of head : Moderate to significant diffuse/confluent chronic white matter ischemic changes seen extending from the periventricular into the subcortical regions bilaterally. Changes are most pronounced in the parietal lobes. In addition, there are scattered chronic bilateral basal nuclei lacunar type infarcts. Small lacunar type infarcts also seen both cerebellar hemispheres. Note that the possibility of a small hyperacute infarct cannot be excluded on this study. Clinical correlation recommended. Marked dilatation of the atria and occipital horns possibly secondary to central volume loss on which is above most pronounced in the temporal occipital and parietal watershed zone regions On 11/16 noted to be obtunded ,unable to clear his secretions, tachypneic and saturation in the 80%. He was transferred to ICU and intubated for airway protection. Repeat CT of head showed no change.MRI showed pontine, midbrain, cerebellar hemispheres and thalami infarct. Patient is intubated , unresponsive comatose , with no cornea and fixed dilated pupils today . With episode of vomiting and possible aspiration 11/22 , Becoming hypotensive, tachycardic, febrile, hypoxemic Neurologically comatose with fixed dilated pupils, no cornea reflex , gag reflex present. 1. Sepsis due to Aspiration Pneumonitis Pt is intubated on Vent BP improved, off levophed drip procalcitonin 79 Continue Zosyn and vanco. ID consulted : Dr. Anderson Cultures: Citerobacter, pansensitive Pt remains febrile Continue IVF ,cooling blankets,Tylenol PRN for fever Keep HOB elevated , aspiration, precautions,respiratory toilet with frequent suctioning 2. Acute CVA Patient is comatose at present with fixed and dilated pupils , not withdrawing to painful stimuli , cornea reflex not present , gag reflex present MRI brain showed pontine , midbrain, cerebellar hemispheres and thalamic infarct Neurology on consult Continue ASA, Statin, Plavix and Amantadine Vent management Permissive hypertension Poor Prognosis May need physician / ethics committee involved moving forward as we still do not have an ID on this patient and his mental state appears to be worsening [employer] has been notified 3. UTI urine cx positive for Strep viridans on vanco IV 4. ? Alcoholism unclear if alcoholic, cannot obtain hx however ED note stated that pateint has history of ETOH ETOH level low urine Tox : neg Thiamine and FA DVT prophylaxis Acute Lovenox
[2017-11-25 12:01] LABS: ALB/GLOB RATIO 0.7 (1.0-2.1); ALBUMIN 2.6 g/dL (3.5-5.0); ALT/SGPT 45 U/L (21-72); AST/SGOT 54 U/L (17-59); BLOOD UREA NITROGEN 10 mg/dl (9-20); CALCIUM 7.3 mg/dL (8.4-10.2); GFR AFRICAN-AMERICAN > 60; GFR NON-AFRICAN AMERICAN > 60
[2017-11-25] MEDS: Potassium Chloride 20 mEq/15 ml LIQ UD PO SCH ×2 (12:17→16:13)
[2017-11-25] MEDS ORDERED: Potassium Chloride 20 mEq 100 ML IVPB SCH ×2 (13:00)
[2017-11-26] MEDS: Piperacillin/Tazobact 3.375 GM in Sodium Chloride 0.9% 100 ML IVPB SCH ×4 (03:16→21:28)
[2017-11-26 05:44] LABS: ABG ALLEN TEST YES; ARTERIAL BLOOD GAS HCO3 30.4 mmol/L (21-28); ARTERIAL BLOOD GAS O2 SAT 99.4 % (95-98); ARTERIAL BLOOD GAS PCO2 54 mm/Hg (35-45); ARTERIAL BLOOD GAS PO2 165 mm/Hg (80-100); ARTERIAL BLOOD GAS TCO2 35.1 mmol/L (22-28)
[2017-11-26 05:53] LABS: BASO # 0.1 K/uL (0.0-0.2); BASO % 0.6 % (0.0-2.0); EOS # 0.2 K/uL (0.0-0.7); EOS % 1.4 % (0.0-4.0); HEMOGLOBIN 10.5 g/dL (12.0-18.0); LYMPH # 1.1 K/uL (1.0-4.3); LYMPH % 9.7 % (20.0-40.0); MEAN CELL VOLUME 92.1 fl (80.0-94.0); MEAN CORPUSCULAR HEMOGLOBIN 30.7 pg (27.0-31.0); MEAN CORPUSCULAR HGB CONC 33.3 g/dL (33.0-37.0); MEAN PLATELET VOLUME 11.8 fl (7.2-11.7); MONO # 0.5 K/uL (0.0-0.8); MONO % 4.1 % (0.0-10.0); NEUT # 9.7 K/uL (1.8-7.0); NEUT % 84.2 % (50.0-75.0); PLATELET COUNT 168 K/uL (130-400); RBC 3.42 Mil/uL (4.40-5.90); RED CELL DISTRIBUTION WIDTH 15.1 % (11.5-14.5); WHITE BLOOD COUNT 11.5 K/uL (4.8-10.8)
[2017-11-26 06:01] LABS: ALB/GLOB RATIO 0.7 (1.0-2.1); ALBUMIN 2.7 g/dL (3.5-5.0); ALT/SGPT 41 U/L (21-72); AST/SGOT 52 U/L (17-59); BLOOD UREA NITROGEN 10 mg/dl (9-20); CALCIUM 7.9 mg/dL (8.4-10.2); GFR AFRICAN-AMERICAN > 60; GFR NON-AFRICAN AMERICAN > 60
[2017-11-26 07:27] LABS: BANDS 1 % (0-2); LYMPHOCYTE 1 % (20-50); NEUTROPHIL 84 % (42-75); TOTAL CELLS COUNTED 100
[2017-11-26 07:28] LABS: EOSINOPHIL 1 % (0-7); MONOCYTE 4 % (0-10); PLATELET ESTIMATE NORMAL (NORMAL)
--- NOTE | 2017-11-26 08:34 | RAD ---
PROCEDURE: CHEST RADIOGRAPH, 1 VIEW HISTORY: eval luings COMPARISON: 11/25/2017 FINDINGS: LUNGS: Left-sided diffuse pulmonary opacity, grossly unchanged. No right-sided opacity. PLEURA: Small left pleural effusion. No right pleural effusion. No pneumothorax. CARDIOVASCULAR: Endotracheal tube tip approximately 2 cm above tracheal haresh. Right multi lumen internal jugular central venous catheter, unchanged. Nasogastric tube extends to left upper quadrant of abdomen. OSSEOUS STRUCTURES: No significant abnormalities. VISUALIZED UPPER ABDOMEN: Normal. OTHER FINDINGS: None. IMPRESSION: Left sided diffuse pulmonary opacity. Possible pneumonia.
[2017-11-26] MEDS ORDERED: Acetaminophen 650mg/20.3ml solution UD PO PRN (09:15)
--- NOTE | 2017-11-26 10:40 | CP.PCM.PN ---
Subjective - Date & Time of Evaluation Date of Evaluation: 11/26/17 Time of Evaluation: 10:00 - Subjective Subjective: Patient is intubated and has a gag reflex, no corneals, no dolls eyes He has borderline cortical postwuring, but not as prominent as last week. PERRL, no facial asymmetry, +2 dtr ul and ll bl. Objective - Vital Signs/Intake and Output Vital Signs (last 24 hours): Temp Pulse Resp BP Pulse Ox 98.2 F 73 12 148/75 100 11/26/17 10:00 11/26/17 10:00 11/26/17 10:00 11/26/17 10:00 11/26/17 10:00 Intake and Output: 11/26/17 11/26/17 06:59 18:59 Intake Total 1370 740 Output Total 1200 Balance 170 740 - Medications Medications: Current Medications Acetaminophen (Tylenol 650 Mg Supp) 650 mg GA Q4 PRN PRN Reason: Fever >100.4 F Last Admin: 11/26/17 03:17 Dose: 650 mg Acetaminophen (Tylenol 650mg/20.3ml Solution Ud) 650 mg PO Q6 PRN PRN Reason: Pain, moderate (4-7) Amantadine HCl (Amantadine 100 Mg Cap) 100 mg PO BID [facility] Last Admin: 11/26/17 09:10 Dose: 100 mg Aspirin (Aspirin Chewable) 81 mg NG DAILY [facility] Last Admin: 11/26/17 09:10 Dose: 81 mg Atorvastatin Calcium (Lipitor) 40 mg PO HS [facility] Last Admin: 11/25/17 21:04 Dose: 40 mg Clopidogrel Bisulfate (Plavix) 75 mg NG DAILY [facility] Last Admin: 11/26/17 09:10 Dose: 75 mg Famotidine (Famotidine) 20 mg IVP Q12 [facility] Last Admin: 11/26/17 09:15 Dose: 20 mg Folic Acid (Folic Acid) 1 mg GT DAILY [facility] Last Admin: 11/26/17 09:10 Dose: 1 mg Piperacillin Sod/Tazobactam (Sod 3.375 gm/ Sodium Chloride) 100 mls @ 100 mls/ hr IVPB Q6 [facility] PRN Reason: Protocol Last Admin: 11/26/17 09:16 Dose: 100 mls/hr Vancomycin HCl 1 gm/ Sodium (Chloride) 250 mls @ 166.667 mls/hr IVPB DAILY [facility] PRN Reason: Protocol Last Admin: 11/26/17 09:11 Dose: 166.667 mls/hr Thiamine HCl (Vitamin B1 Tab) 100 mg NG DAILY [facility] Last Admin: 11/26/17 09:13 Dose: 100 mg - Labs Labs: 11/26/17 04:25 11/26/17 04:25 PT 11.6 Seconds (9.8-13.1) 11/15/17 08:15 INR 1.0 (0.9-1.2) 11/15/17 08:15 APTT 29.7 Seconds (25.6-37.1) 11/15/17 08:15 Assessment and Plan - Assessment and Plan (Free Text) Assessment: Patient with severe anoxic encephalopathy, 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 PLan: 1. EEG tuesday 2. CT head tomorrow am. Dr. stark
--- NOTE | 2017-11-26 11:09 | CP.PCM.PN ---
Subjective - Date & Time of Evaluation Date of Evaluation: 11/26/17 Time of Evaluation: 11:00 - Subjective Subjective: Pt remains intubated on Mech Vent Responds to pain Pupils fixed Febrile this am 101.2 Objective - Vital Signs/Intake and Output Vital Signs (last 24 hours): Temp Pulse Resp BP Pulse Ox 98.2 F 73 12 148/75 100 11/26/17 10:00 11/26/17 10:00 11/26/17 10:00 11/26/17 10:00 11/26/17 10:00 Intake and Output: 11/26/17 11/26/17 06:59 18:59 Intake Total 1370 740 Output Total 1200 Balance 170 740 - Medications Medications: Current Medications Acetaminophen (Tylenol 650 Mg Supp) 650 mg HI Q4 PRN PRN Reason: Fever >100.4 F Last Admin: 11/26/17 03:17 Dose: 650 mg Acetaminophen (Tylenol 650mg/20.3ml Solution Ud) 650 mg PO Q6 PRN PRN Reason: Pain, moderate (4-7) Amantadine HCl (Amantadine 100 Mg Cap) 100 mg PO BID [facility] Last Admin: 11/26/17 09:10 Dose: 100 mg Aspirin (Aspirin Chewable) 81 mg NG DAILY [facility] Last Admin: 11/26/17 09:10 Dose: 81 mg Atorvastatin Calcium (Lipitor) 40 mg PO HS [facility] Last Admin: 11/25/17 21:04 Dose: 40 mg Clopidogrel Bisulfate (Plavix) 75 mg NG DAILY [facility] Last Admin: 11/26/17 09:10 Dose: 75 mg Famotidine (Famotidine) 20 mg IVP Q12 [facility] Last Admin: 11/26/17 09:15 Dose: 20 mg Folic Acid (Folic Acid) 1 mg GT DAILY [facility] Last Admin: 11/26/17 09:10 Dose: 1 mg Piperacillin Sod/Tazobactam (Sod 3.375 gm/ Sodium Chloride) 100 mls @ 100 mls/ hr IVPB Q6 [facility] PRN Reason: Protocol Last Admin: 11/26/17 09:16 Dose: 100 mls/hr Vancomycin HCl 1 gm/ Sodium (Chloride) 250 mls @ 166.667 mls/hr IVPB DAILY [facility] PRN Reason: Protocol Last Admin: 11/26/17 09:11 Dose: 166.667 mls/hr Thiamine HCl (Vitamin B1 Tab) 100 mg NG DAILY [facility] Last Admin: 11/26/17 09:13 Dose: 100 mg - Labs Labs: 11/26/17 04:25 11/26/17 04:25 PT 11.6 Seconds (9.8-13.1) 11/15/17 08:15 INR 1.0 (0.9-1.2) 11/15/17 08:15 APTT 29.7 Seconds (25.6-37.1) 11/15/17 08:15 - Constitutional Appears: chronically ill, responds to pain by moving extremities - Head Exam Head Exam: NORMAL INSPECTION, NORMOCEPHALIC - Eye Exam Eye Exam: absent: PERRL Pupil Exam: Fixed - ENT Exam ENT Exam: Mucous Membranes Dry, Normal External Ear Exam - Neck Exam Neck Exam: absent: Meningismus - Respiratory Exam Respiratory Exam: Rhonchi Additional comments: Intubated on Vent - Cardiovascular Exam Cardiovascular Exam: REGULAR RHYTHM, +S1, +S2 - GI/Abdominal Exam GI & Abdominal Exam: Soft, Normal Bowel Sounds - Extremities Exam Extremities Exam: Normal Capillary Refill, Pedal Edema - Neurological Exam Additional comments: responds to pain with movement of extremities fixed pupils Assessment and Plan (1) Acute CVA (cerebrovascular accident) Status: Acute (2) Altered mental status Status: Acute (3) Slurring of speech Status: Acute (4) HTN (hypertension) Status: Chronic (5) Acute metabolic encephalopathy Status: Acute (6) Acute respiratory insufficiency Status: Acute (7) DVT prophylaxis Status: Acute - Assessment and Plan (Free Text) Assessment: White male , Tez White , unkempt, unknown PMH was broughtby EMS after he was observed by bystanders falling in the street. Patient was lethargic on admission however arousable , noted to have a facial droop and his speech was slurred. CT of head : Moderate to significant diffuse/confluent chronic white matter ischemic changes seen extending from the periventricular into the subcortical regions bilaterally. Changes are most pronounced in the parietal lobes. In addition, there are scattered chronic bilateral basal nuclei lacunar type infarcts. Small lacunar type infarcts also seen both cerebellar hemispheres. Note that the possibility of a small hyperacute infarct cannot be excluded on this study. Clinical correlation recommended. Marked dilatation of the atria and occipital horns possibly secondary to central volume loss on which is above most pronounced in the temporal occipital and parietal watershed zone regions On 11/16 noted to be obtunded ,unable to clear his secretions, tachypneic and saturation in the 80%. He was transferred to ICU and intubated for airway protection. Repeat CT of head showed no change. MRI showed pontine, midbrain , cerebellar hemispheres and thalami infarct. Patient is intubated , comatose , with no corneal reflex and fixed pupils . With episode of vomiting and possible aspiration /15m became hypotensive, tachycardic, febrile, hypoxemic Neurologically comatose with fixed dilated pupils, no cornea reflex , gag reflex present. 1. Sepsis due to Aspiration Pneumonitis Pt is intubated on Vent ( PVRC/AC 06/4500/5/60%) BP improved, off levophed drip procalcitonin 79 Continue Zosyn and vanco. ID consulted : Dr. Anderson Cultures: Citerobacter, pansensitive Pt remains febrile Continue IVF ,cooling blankets,Tylenol PRN for fever Keep HOB elevated , aspiration, precautions,respiratory toilet with frequent suctioning 2. Acute CVA Patient is comatose at present with fixed and dilated pupils , not withdrawing to painful stimuli , cornea reflex not present , gag reflex present MRI brain showed pontine , midbrain, cerebellar hemispheres and thalamic infarct Neurology on consult - rec rpt EEG and CT of head Continue ASA, Statin, Plavix and Amantadine Vent management Permissive hypertension Poor Prognosis May need physician / ethics committee involved moving forward as we still do not have an ID on this patient and his mental state appears to be worsening [employer] has been notified 3. UTI urine cx positive for Strep viridans on vanco IV 4. ? Alcoholism unclear if alcoholic, cannot obtain hx however ED note stated that pateint has history of ETOH ETOH level low urine Tox : neg Thiamine and FA DVT prophylaxis Acute Lovenox
[2017-11-27] MEDS: Acetaminophen 650mg/20.3ml solution UD PO PRN ×3 (01:00→20:31)
[2017-11-27] MEDS: Piperacillin/Tazobact 3.375 GM in Sodium Chloride 0.9% 100 ML IVPB SCH ×4 (05:04→21:03)
[2017-11-27 05:26] LABS: BASO # 0.1 K/uL (0.0-0.2); BASO % 0.4 % (0.0-2.0); EOS # 0.1 K/uL (0.0-0.7); EOS % 1.1 % (0.0-4.0); HEMOGLOBIN 9.9 g/dL (12.0-18.0); LYMPH % 7.6 % (20.0-40.0); MEAN CELL VOLUME 92.3 fl (80.0-94.0); MEAN CORPUSCULAR HEMOGLOBIN 30.3 pg (27.0-31.0); MEAN CORPUSCULAR HGB CONC 32.9 g/dL (33.0-37.0); MEAN PLATELET VOLUME 10.1 fl (7.2-11.7); MONO # 0.4 K/uL (0.0-0.8); MONO % 2.9 % (0.0-10.0); NEUT # 11.6 K/uL (1.8-7.0); RBC 3.26 Mil/uL (4.40-5.90); WHITE BLOOD COUNT 13.2 K/uL (4.8-10.8)
[2017-11-27 05:28] LABS: ABG ALLEN TEST YES; ARTERIAL BLOOD GAS HCO3 34.4 mmol/L (21-28); ARTERIAL BLOOD GAS HEMOGLOBIN 10.5 g/dL (11.7-17.4); ARTERIAL BLOOD GAS O2 CAPACITY 14.6 mL/dL (16-24); ARTERIAL BLOOD GAS O2 CONTENT 14.6 ML/dL (15-23); ARTERIAL BLOOD GAS PCO2 47 mm/Hg (35-45); ARTERIAL BLOOD GAS PO2 143 mm/Hg (80-100); ARTERIAL BLOOD GAS TCO2 38.1 mmol/L (22-28)
[2017-11-27 05:30] LABS: BLOOD UREA NITROGEN 12 mg/dl (9-20); GFR AFRICAN-AMERICAN > 60; GFR NON-AFRICAN AMERICAN > 60
--- NOTE | 2017-11-27 09:12 | RAD ---
HISTORY: ETT placement COMPARISON: 11/26/2017 FINDINGS: LUNGS: Diminishing left-sided pulmonary opacity with persistent opacity at lung base. Retrocardiac opacity and silhouetting of left hemidiaphragm. PLEURA: Probable small left pleural effusion. No right pleural effusion. No pneumothorax. CARDIOVASCULAR: ET tube, NG tube and right IJ central venous catheter are all grossly unchanged. Normal heart size. No significant congestive change. OSSEOUS STRUCTURES: No significant abnormalities. VISUALIZED UPPER ABDOMEN: Normal. OTHER FINDINGS: None. IMPRESSION: Decreasing left-sided opacity. Left pleural effusion. Lines and tubes unchanged.
--- NOTE | 2017-11-27 10:54 | CP.PCM.PN ---
Subjective - Date & Time of Evaluation Date of Evaluation: 11/27/17 Time of Evaluation: 10:30 - Subjective Subjective: Pt remains intubated , on Mech Vent OGT in place responds to noxious stimuli by posturing absent pupillary reflex Tolerating tube feeding Remains febrile Objective - Vital Signs/Intake and Output Vital Signs (last 24 hours): Temp Pulse Resp BP Pulse Ox 98.7 F 82 12 131/70 100 11/27/17 08:00 11/27/17 08:00 11/27/17 08:00 11/27/17 08:00 11/27/17 08:00 Intake and Output: 11/27/17 11/27/17 06:59 18:59 Intake Total 1170 500 Output Total 1000 Balance 170 500 - Medications Medications: Current Medications Acetaminophen (Tylenol 650 Mg Supp) 650 mg DC Q4 PRN PRN Reason: Fever >100.4 F Last Admin: 11/27/17 05:21 Dose: 650 mg Acetaminophen (Tylenol 650mg/20.3ml Solution Ud) 650 mg PO Q6 PRN PRN Reason: Pain, moderate (4-7) Last Admin: 11/26/17 17:50 Dose: 650 mg Acetaminophen (Tylenol 650mg/20.3ml Solution Ud) 650 mg PO Q6 PRN PRN Reason: fever > 100.4 Last Admin: 11/27/17 01:00 Dose: 650 mg Aspirin (Aspirin Chewable) 81 mg NG DAILY [facility] Last Admin: 11/27/17 09:28 Dose: 81 mg Atorvastatin Calcium (Lipitor) 40 mg PO HS [facility] Last Admin: 11/26/17 21:19 Dose: 40 mg Clopidogrel Bisulfate (Plavix) 75 mg NG DAILY [facility] Last Admin: 11/27/17 09:44 Dose: 75 mg Famotidine (Famotidine) 20 mg IVP Q12 [facility] Last Admin: 11/27/17 09:43 Dose: 20 mg Folic Acid (Folic Acid) 1 mg GT DAILY [facility] Last Admin: 11/27/17 09:43 Dose: 1 mg Piperacillin Sod/Tazobactam (Sod 3.375 gm/ Sodium Chloride) 100 mls @ 100 mls/ hr IVPB Q6 [facility] PRN Reason: Protocol Last Admin: 11/27/17 09:45 Dose: 100 mls/hr Vancomycin HCl 1 gm/ Sodium (Chloride) 250 mls @ 166.667 mls/hr IVPB DAILY [facility] PRN Reason: Protocol Last Admin: 11/27/17 09:44 Dose: 166.667 mls/hr Thiamine HCl (Vitamin B1 Tab) 100 mg NG DAILY [facility] Last Admin: 11/27/17 09:45 Dose: 100 mg - Labs Labs: 11/27/17 04:18 11/27/17 04:18 PT 11.6 Seconds (9.8-13.1) 11/15/17 08:15 INR 1.0 (0.9-1.2) 11/15/17 08:15 APTT 29.7 Seconds (25.6-37.1) 11/15/17 08:15 - Constitutional Appears: chronically ill, Intubated on Vent - Head Exam Head Exam: NORMAL INSPECTION, NORMOCEPHALIC - Eye Exam Eye Exam: absent: PERRL Pupil Exam: Fixed - ENT Exam ENT Exam: Mucous Membranes Dry, Normal External Ear Exam - Neck Exam Neck Exam: absent: Meningismus - Respiratory Exam Respiratory Exam: Rhonchi Additional comments: Intubated on Vent - Cardiovascular Exam Cardiovascular Exam: REGULAR RHYTHM, +S1, +S2 - GI/Abdominal Exam GI & Abdominal Exam: Soft, Normal Bowel Sounds OGT in place - Extremities Exam Extremities Exam: Normal Capillary Refill, Pedal Edema - Neurological Exam Additional comments: responds to pain with movement of extremities( decrebrate posturing) fixed pupils Assessment and Plan (1) Acute CVA (cerebrovascular accident) Status: Acute (2) Altered mental status Status: Acute (3) Slurring of speech Status: Acute (4) HTN (hypertension) Status: Chronic (5) Acute metabolic encephalopathy Status: Acute (6) Acute respiratory insufficiency Status: Acute (7) DVT prophylaxis Status: Acute - Assessment and Plan (Free Text) Assessment: White male , Tez White , unkempt, unknown PMH was broughtby EMS after he was observed by bystanders falling in the street. Patient was lethargic on admission however arousable , noted to have a facial droop and his speech was slurred. CT of head : Moderate to significant diffuse/confluent chronic white matter ischemic changes seen extending from the periventricular into the subcortical regions bilaterally. Changes are most pronounced in the parietal lobes. In addition, there are scattered chronic bilateral basal nuclei lacunar type infarcts. Small lacunar type infarcts also seen both cerebellar hemispheres. Note that the possibility of a small hyperacute infarct cannot be excluded on this study. Clinical correlation recommended. Marked dilatation of the atria and occipital horns possibly secondary to central volume loss on which is above most pronounced in the temporal occipital and parietal watershed zone regions On 11/16 noted to be obtunded ,unable to clear his secretions, tachypneic and saturation in the 80%. He was transferred to ICU and intubated for airway protection. Repeat CT of head showed no change. MRI showed pontine, midbrain , cerebellar hemispheres and thalami infarct. 11/22: With episode of vomiting and possible aspiration became hypotensive, tachycardic, febrile, hypoxemic Neurologically comatose with fixed pupil, absent pupillary reflex, no gag reflex 1. Sepsis due to Aspiration Pneumonitis Pt is intubated on Vent ( PVRC/AC 06/4500/5/60%) BP improved, off levophed drip procalcitonin 79 Continue Zosyn and vanco. ID consulted : Dr. Anderson Trach asp Culture: Citrobacter, pansensitive Pt remains febrile Continue IVF ,cooling blankets,Tylenol PRN for fever Keep HOB elevated , aspiration, precautions,respiratory toilet with frequent suctioning 2. Acute CVA Patient is comatose at present with fixed and dilated pupils , decerebrate posturing with noxius stimuli MRI brain showed pontine , midbrain, cerebellar hemispheres and thalamic infarct ? Brain - Neurology on consult - rec rpt EEG and CT of head Continue ASA, Statin, Plavix Pt also received Amantadine Permissive hypertension Poor Prognosis [employer] has been notified May need to involve Ethic Committee 3. UTI urine cx positive for Strep viridans on Vanco IV 4. ? Alcoholism unclear if alcoholic, cannot obtain hx however ED note stated that patient has history of ETOH ETOH level low urine Tox : neg Thiamine and FA DVT prophylaxis Acute Lovenox
[2017-11-27] MEDS ORDERED: Enoxaparin 40 mg Syringe SC STA (14:20)
[2017-11-27] MEDS ORDERED: Chlorhexidine Gluconate 1 APPL/PKT TP ONE (17:23)
--- NOTE | 2017-11-27 20:43 | PN ---
DATE: 11/27/2017 CRITICAL CARE PROGRESS NOTE LOCATION: The patient is in ICU, bed 435. TIME SPENT: 35 minutes. SUBJECTIVE: The patient is seen and evaluated at the bedside. Past medical, surgical, social history reviewed as noted in the history and physical. A 63-year-old male admitted after being found by bystanders falling in the street, lethargic on admission; however, noted to be arousable, noted to have a facial droop and slurred speech. Repeat CT showed chronic white matter ischemic changes extending from the periventricular into the subcortical regions bilaterally. MRI showed pontine midbrain cerebellar hemispheres and thalami infarct. The patient noted to desaturate from aspiration, intubated. Now remains unresponsive. Overnight on mechanical ventilation, AC/PRVC rate of 12, observed rate 13, set tidal volume 450, exhaled tidal volume 500, PEEP of 5, minute ventilation 5.5 liters, FiO2 60%, peak airway pressure of 15, and tidal CO2 51. PHYSICAL EXAMINATION: VITAL SIGNS: Temperature 101.6, heart rate 92, regular, blood pressure 136/72, oxygen saturation 99%. Intake 2790, output 2000, positive balance 790. Weight 116 pounds. HEAD, EYES, EARS, NOSE AND THROAT: Pupils 3 to 4 mm reactive. No corneal reflex. No doll's eyes. Positive gag reflex on manipulating Endotracheal tube. Borderline cortical posturing_. No facial asymmetry. Deep tendon reflexes 2+. NECK: Supple. Endotracheal tube in place. No secretions. HEART: Rhythm irregular. S1 and S2 normal. ABDOMEN: Bowel sounds present, soft. NG tube in place, tolerating feeding. EXTREMITIES: No edema. SKIN: Mottling to lower extremities, hypopigmented area to the skin to bilateral hips and lower extremities. Dry callus to left foot plantar surface. CURRENT MEDICATIONS: Tylenol 650 q. 4 p.r.n. for temperature more than 100.4, aspirin 81 mg NG daily, Lipitor 40 mg p.o. daily, Plavix 75 mg NG daily, Pepcid 20 mg IV q. 12, folic acid 1 mg NG daily, Zosyn 3.375 g IV q. 6, thiamine 100 mg NG daily, and vancomycin 1 g IV daily. LABORATORY DATA: WBC 13.2, hemoglobin 9.9, hematocrit 30.1, platelet count of 241, neutrophils 88, lymphocytes 7.6, monocytes 2.9. PT 11.6, INR 1, PTT 29.7. ABG; pH 7.50, pCO2 47, pO2 143, saturation 100% on AC 12, 450, 60%, PEEP of 5. SMA-7; sodium 134, potassium 4.4, chloride 92, CO2 35, blood urea nitrogen 12, creatinine 0.6, random glucose 131, calcium 8. Urinalysis; leukocyte esterase negative, rbc 18, wbc 2. Serology, herpes simplex virus IgG positive. Herpes simplex to IgG less than 0.92, HIV 1 and 2 Ag/Ab fourth generation nonreactive. Microbiology; sputum culture for CD4, Citrobacter diversus. Blood culture; no growth reported. Urine culture; no growth reported. Less than 1000 CFU/mL. Chest x-ray persistent endotracheal tube in place. Persistent, but decreased left-sided opacity, left pleural effusion. Lines and tubes in place. IMPRESSION AND PLAN: 1. 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 MRI showed multiple infarcts involving cerebral and cerebellar areas. Prognosis remains guarded. 2. Pulmonary; remains intubated on mechanical ventilation for airway protection, noted to have pneumonia probably related to aspiration. Not a candidate to be in off the ventilator. Consider tracheostomy and percutaneous endoscopic gastrostomy placement. 3. Cardiac; no acute issues reported. 4. Gastrointestinal; tolerating nasogastric tube feeding. May need percutaneous endoscopic gastrostomy insertion. Leukocytosis trending down on current antibiotics. 5. Anemia of chronic disease, hemoglobin stable. 6. Endocrine; blood sugar maintain below 180. 7. Infectious Disease; suspected aspiration pneumonia on antibiotics. Currently on vancomycin and Zosyn. Appreciate ID followup. Appreciate Neurology followup and recommendation for a repeat CT in the morning, on Tuesday. Raul Finn MD [facility]
[2017-11-28] MEDS: Piperacillin/Tazobact 3.375 GM in Sodium Chloride 0.9% 100 ML IVPB SCH ×4 (04:01→21:15)
[2017-11-28 04:58] LABS: ABG ALLEN TEST YES; ARTERIAL BLOOD GAS HCO3 33.5 mmol/L (21-28); ARTERIAL BLOOD GAS HEMOGLOBIN 12.1 g/dL (11.7-17.4); ARTERIAL BLOOD GAS O2 SAT 99.9 % (95-98); ARTERIAL BLOOD GAS PCO2 53 mm/Hg (35-45); ARTERIAL BLOOD GAS PH 7.45 (7.35-7.45); ARTERIAL BLOOD GAS PO2 182 mm/Hg (80-100); ARTERIAL BLOOD GAS TCO2 38.4 mmol/L (22-28)
[2017-11-28 05:55] LABS: BASO # 0.1 K/uL (0.0-0.2); BASO % 0.4 % (0.0-2.0); EOS # 0.1 K/uL (0.0-0.7); EOS % 0.7 % (0.0-4.0); HEMOGLOBIN 9.7 g/dL (12.0-18.0); LYMPH # 1.3 K/uL (1.0-4.3); LYMPH % 9.6 % (20.0-40.0); MEAN CELL VOLUME 90.9 fl (80.0-94.0); MEAN CORPUSCULAR HEMOGLOBIN 30.9 pg (27.0-31.0); MEAN PLATELET VOLUME 9.8 fl (7.2-11.7); MONO # 0.5 K/uL (0.0-0.8); MONO % 3.6 % (0.0-10.0); NEUT # 11.8 K/uL (1.8-7.0); NEUT % 85.7 % (50.0-75.0); NRBC % 0.1 % (0.0-0.0); RBC 3.16 Mil/uL (4.40-5.90); RED CELL DISTRIBUTION WIDTH 14.9 % (11.5-14.5); WHITE BLOOD COUNT 13.8 K/uL (4.8-10.8)
--- NOTE | 2017-11-28 07:11 | RAD ---
HISTORY: ETT placement COMPARISON: Portable chest 11/27/2017 6:46 a.m.. FINDINGS: LUNGS: Nasogastric and endotracheal tubes do not appear significantly changed in position as well as right central venous line. No interval change in left basilar airspace disease is appreciated with none at the right. No right pleural effusion. Underlying left pleural effusion not excluded. Cardiovascular pattern stable. PLEURA: As above. CARDIOVASCULAR: As above. OSSEOUS STRUCTURES: No significant abnormalities. VISUALIZED UPPER ABDOMEN: Normal. OTHER FINDINGS: None. IMPRESSION: Stable left-sided airspace disease and possible underlying left pleural effusion with right chest remaining clear.
--- NOTE | 2017-11-28 07:48 | CP.PCM.PN ---
Subjective - Date & Time of Evaluation Date of Evaluation: 11/28/17 Time of Evaluation: 09:00 - Subjective Subjective: Patient seen and examined bedside. Intubated on MV PRVC AC mode 12/450/5/60 % ABG 53/182/33/7.45 , not sedated , comatose.No pupillary reflex , cornea present , gag present , does not withdraw tpo painful stimuli Febrile Tmax 103.1 last 24 hours WBC 13 ,Hgb 9.7 I/O 2540/2700 Objective - Vital Signs/Intake and Output Vital Signs (last 24 hours): Temp Pulse Resp BP Pulse Ox 94.6 F L 56 L 13 146/77 100 11/28/17 06:00 11/28/17 06:00 11/28/17 06:00 11/28/17 06:00 11/28/17 06:00 Intake and Output: 11/28/17 11/28/17 06:59 18:59 Intake Total 1020 Output Total 1200 Balance -180 - Medications Medications: Current Medications Acetaminophen (Tylenol 650 Mg Supp) 650 mg [place] Q4 PRN PRN Reason: Fever >100.4 F Last Admin: 11/27/17 17:24 Dose: 650 mg Acetaminophen (Tylenol 650mg/20.3ml Solution Ud) 650 mg PO Q6 PRN PRN Reason: Pain, moderate (4-7) Last Admin: 11/26/17 17:50 Dose: 650 mg Acetaminophen (Tylenol 650mg/20.3ml Solution Ud) 650 mg PO Q6 PRN PRN Reason: fever > 100.4 Last Admin: 11/27/17 20:31 Dose: 650 mg Aspirin (Aspirin Chewable) 81 mg NG DAILY [facility] Last Admin: 11/27/17 09:28 Dose: 81 mg Atorvastatin Calcium (Lipitor) 40 mg PO HS [facility] Last Admin: 11/27/17 21:03 Dose: 40 mg Clopidogrel Bisulfate (Plavix) 75 mg NG DAILY [facility] Last Admin: 11/27/17 09:44 Dose: 75 mg Enoxaparin Sodium (Lovenox) 40 mg SC DAILY [facility] PRN Reason: Protocol Famotidine (Famotidine) 20 mg IVP Q12 [facility] Last Admin: 11/27/17 20:31 Dose: 20 mg Folic Acid (Folic Acid) 1 mg GT DAILY [facility] Last Admin: 11/27/17 09:43 Dose: 1 mg Piperacillin Sod/Tazobactam (Sod 3.375 gm/ Sodium Chloride) 100 mls @ 100 mls/ hr IVPB Q6 [facility] PRN Reason: Protocol Last Admin: 11/28/17 04:01 Dose: 100 mls/hr Vancomycin HCl 1 gm/ Sodium (Chloride) 250 mls @ 166.667 mls/hr IVPB DAILY [facility] PRN Reason: Protocol Last Admin: 11/27/17 09:44 Dose: 166.667 mls/hr Thiamine HCl (Vitamin B1 Tab) 100 mg NG DAILY [facility] Last Admin: 11/27/17 09:45 Dose: 100 mg - Labs Labs: 11/28/17 04:20 11/27/17 04:18 PT 11.6 Seconds (9.8-13.1) 11/15/17 08:15 INR 1.0 (0.9-1.2) 11/15/17 08:15 APTT 29.7 Seconds (25.6-37.1) 11/15/17 08:15 - Constitutional Appears: Other (intubated on MV comatose) - Head Exam Head Exam: ATRAUMATIC, NORMOCEPHALIC - Eye Exam Additional comments: pupils fixed and non reactive - ENT Exam ENT Exam: Normal Exam - Neck Exam Neck Exam: Normal Inspection - Respiratory Exam Respiratory Exam: Clear to Ausculation Bilateral, NORMAL BREATHING PATTERN. absent: Rhonchi, Wheezes, Respiratory Distress - Cardiovascular Exam Cardiovascular Exam: REGULAR RHYTHM, RRR, +S1, +S2. absent: JVD - GI/Abdominal Exam GI & Abdominal Exam: Soft, Normal Bowel Sounds. absent: Distended, Tenderness, Rebound - Rectal Exam Rectal Exam: Deferred - Extremities Exam Extremities Exam: absent: Pedal Edema Additional comments: right foot plantar aspect callouses - Neurological Exam Additional comments: comatose does not withdraw to painful stimuli pupils fixed and non responsive to light cornea reflex and gag reflex present - Skin Skin Exam: Dry, Warm Additional comments: hypopigmented skin areas on bilateral hips Assessment and Plan - Assessment and Plan (Free Text) Assessment: White male , Tez White , unkempt, unknown PMH was brought by EMS after he was observed by bystanders falling in the street. Patient was lethargic on admission however arousable , noted to have a facial droop and his speech was slurred. CT of head : Moderate to significant diffuse/confluent chronic white matter ischemic changes seen extending from the periventricular into the subcortical regions bilaterally. Changes are most pronounced in the parietal lobes. In addition, there are scattered chronic bilateral basal nuclei lacunar type infarcts. Small lacunar type infarcts also seen both cerebellar hemispheres. Note that the possibility of a small hyperacute infarct cannot be excluded on this study. Clinical correlation recommended. Marked dilatation of the atria and occipital horns possibly secondary to central volume loss on which is above most pronounced in the temporal occipital and parietal watershed zone regions On 11/16 noted to be obtunded ,unable to clear his secretions, tachypneic and saturation in the 80%. He was transferred to ICU and intubated for airway protection. Repeat CT of head showed no change. MRI showed pontine, midbrain , cerebellar hemispheres and thalami infarct. 11/22: With episode of vomiting and possible aspiration became hypotensive, tachycardic, febrile, hypoxemic Neurologically comatose with fixed pupil, cornea reflex present, gag reflex present, does not withdraws to painful stimuli. 1. Sepsis due to Aspiration Pneumonitis Pt is intubated on Vent ( PVRC/AC 12/450/5/60%) BP improved, off levophed drip , febrile Tmax 103 procalcitonin 79 trachea aspirates positive for Citrobacter Continue Zosyn and vanco. ID consulted : Dr. Anderson Continue IVF ,cooling blankets,Tylenol PRN for fever Keep HOB elevated , aspiration, precautions,respiratory toilet with frequent suctioning 2. Acute CVA Patient is comatose at present with fixed and dilated pupils , does not withdraw to painful stimuli MRI brain showed pontine , midbrain, cerebellar hemispheres and thalamic infarct Neurology on consult Will repeat EEG and CT of head as [per neurology Continue ASA, Statin, Plavix Amantadine was given Poor Prognosis [facility] network has been notified May need to involve Ethic Committee 3. UTI urine cx positive for Strep viridans on Vanco IV 4. ? Alcoholism unclear if alcoholic, cannot obtain hx however ED note stated that patient has history of ETOH ETOH level low urine Tox : neg Thiamine and FA DVT prophylaxis Acute Lovenox
[2017-11-28 08:07] LABS: ALB/GLOB RATIO 0.8 (1.0-2.1); ALBUMIN 2.9 g/dL (3.5-5.0); ALT/SGPT 42 U/L (21-72); AST/SGOT 146 U/L (17-59); BLOOD UREA NITROGEN 14 mg/dl (9-20); CALCIUM 8.1 mg/dL (8.4-10.2); GFR AFRICAN-AMERICAN > 60; GFR NON-AFRICAN AMERICAN > 60
--- NOTE | 2017-11-28 08:39 | PN ---
DATE: 11/26/2017 CRITICAL CARE PROGRESS NOTE LOCATION: The patient in ICU, bed 435. TIME SPENT: 35 minutes. SUBJECTIVE: Past medical, surgical, and social history reviewed. A 63-year-old male with unobtainable medical history, admitted through emergency room on 11/14/2017 after he was found falling in the street with unsteady gait. CT head showed chronic white matter ischemic changes, chronic lacunar infarct on both cerebellar areas. Clinical course complicated with hypoxic respiratory failure, requiring intubation, remains intubated on mechanical ventilation, AC/PRVC rate of 12, tidal volume of 450, FiO2 of 60%, PEEP of 5, saturation of 100%, observed respiratory rate of 40, observed tidal volume, exhaled tidal volume of 460, and peak airway pressure of 21. Remains comatose, but responds to painful stimuli. Right IJ in place. OBJECTIVE: VITAL SIGNS: Temperature T-max 101.2, heart rate 73 and regular, blood pressure 148/75, mean arterial pressure 99, saturations 100%, end-tidal CO2 of 35. INTAKE AND OUTPUT: Intake 3369 and output 2500. Positive balance 869. HEENT: Pupils 4 mm minimally reactive. No corneal reflex. No conjunctival reflex. Responds to ETT manipulation . CHEST: Bilateral breath sounds, diminished in intensity, clear to auscultation anteriorly and laterally. HEART: Rhythm regular. S1 and S2 normal. ABDOMEN: Bowel sounds present and soft. No tenderness. EXTREMITIES: Trace edema. DP palpable. SKIN: Without rash. No sacral breakdown. NEUROLOGIC: [place] Coma Scale of 4, withdraws from painful stimuli. CURRENT MEDICATIONS: Include Tylenol 650 NG every 6 hours p.r.n., amantadine 100 mg p.o. twice daily, aspirin 81 mg daily, Lipitor 40 mg p.o. daily, Plavix 75 mg NG daily, Pepcid 20 mg IV every 12 hours, folic acid 1 mg daily, Zosyn 3.375 g IV every 6 hours, thiamine 100 mg daily, and vancomycin 1 g IV daily. LABORATORY DATA: WBC 11.5, hemoglobin 10.5, hematocrit 31.5, platelet count 168,000, neutrophils 84.2, lymphocytes 9.7, and monocytes 4.1. PT 11.6, INR 1, and PTT 29.7. ABG; pH of 7.40, pCO2 of 54, pO2 of 165 on AC 12, 450, 60%, and PEEP 5. SMA-7; sodium 137, potassium 4.3, chloride 96, CO2 32, blood urea nitrogen 10, creatinine 0.6, calcium 7.9, phosphorus 3.1, magnesium 2.1, total bilirubin 0.6, AST 53, ALT 41, alkaline phosphatase 87, total protein 6.6, albumin 2.7, and albumin globulin ratio 0.7. Microbiology; sputum culture, Citrobacter diversus. Urine culture positive for Streptococcus viridans. Repeat culture on 11/22/2017 to [facility], no growth, less than 1000 CFU/mL. Chest x-ray done on this morning, endotracheal tube in place, right multilumen internal jugular venous catheter ,_ nasogastric tube extensive to left upper quadrant of the abdomen, left-sided diffuse pulmonary opacity possibly pneumonia. IMPRESSION AND PLAN: 1. Neurologic: Admitted with altered mental status. CT head showed brain infarction obscuring at the brainstem and more obvious at the bilateral cerebral peduncle as well as small foci at both cerebellar hemispheres. No intracranial hemorrhage. Remains responsive only to pain on ventilatory support over dries the ventilator. Pupils 4 mm, mildly reactive. 2. Pulmonary: Hypoxic respiratory failure on mechanical ventilation. Chest x-ray with possible pneumonia likely aspiration, on vancomycin and Zosyn. 3. Cardiac: telemetery without arrhythmias, normotensive. 4. Infectious Disease: Still febrile, borderline leukocytosis, suspected aspiration pneumonia. Continue antibiotics. 5. Gastrointestinal: Hypoalbuminemia. 6. Hematology: Leukocytosis trending down, thrombocytopenia. Now returned to baseline. No active coagulopathy or bleeding noted. 7. Renal: No acute issues. Prognosis remains guarded. May need tracheostomy and percutaneous endoscopic gastrostomy insertion as the remains unchanged and not improving. Raul Finn MD [facility]
[2017-11-28] MEDS: Enoxaparin 40 mg Syringe SC SCH (09:20)
--- NOTE | 2017-11-28 11:00 | CP.CCUPN ---
CCU Subjective - Physician Review Events Since Last Encounter (Free Text): 11/28/17 10:52 The patient was Seen and examined by me at the bedside during ICU round, Medical records reviewed and Management issues were discussed and formulated with the house staff. Events reviewed Pt remains orally intubated and mechanically ventilated. PRVC AC12 TV450 FiO2 60 % PEEP5. Remains febrile overnight, Tmx 101.4 F. BP stable. NSR on the monitor Comatosed, no improvement of mental status, unresponsive to painful stimuli. Pupils remain fixed and dilated, No corneal reflex identified. Gag reflex intact. Pt Continued on IV Vanco and Zosyn Sputum C/S positive Citrobacter Diversus Urine C/S positive for gram positive Cocci Blood C/S with no growth Last 24H I&O 2540/2700 This morning labs revealed persistent Leucocytosis, improved renal function. CCU Objective - Vital Signs / Intake & Output Vital Signs (Last 4 hours): Vital Signs Temp Pulse Resp BP Pulse Ox 11/28/17 10:00 98.5 F 70 12 139/76 100 11/28/17 08:00 95.0 F L 67 12 132/73 100 Intake and Output (Last 8hrs): Intake & Output 11/27/17 11/28/17 11/28/17 22:59 06:59 14:59 Intake Total 1260 630 790 Output Total 1500 1200 Balance -240 -570 790 Intake: Intake, Piggyback 400 Tube Feeding 960 480 240 Free Water Flush 300 150 150 Output: Urine 1500 1200 2-way Urethral 1500 1200 - Physical Exam Head: Positive for: Atraumatic, Normocephalic. Negative for: Ecchymosis, Abrasion, Laceration Pupils: Positive for: Non-Reactive, Other (fixed and dilated ) Extroacular Muscles: Negative for: EOMI, Gaze Palsy Conjunctiva: Positive for: Normal. Negative for: Injected, Icteric Ears: Positive for: Normal Mouth: Positive for: Dry. Negative for: Normal Teeth (missing dentition ) Pharnyx: Positive for: Normal. Negative for: ERYTHEMA, EXUDATE, TONSILS ENLARGED Neck: Positive for: Normal Range of Motion, Trachea Midline, Other (R. IJ line) . Negative for: Meningeal Signs, JVD, Lymphadenopathy Respiratory/Chest: Positive for: Good Air Exchange. Negative for: Clear to Auscultation (gugrling sounds, distant breath sounds b/l), Respiratory Distress , Decreased Breath Sounds, Rales, Retracting, Rhonchi, Tachypneic, Tender to Palpation Cardiovascular: Positive for: Normal S1, S2, Peripheal Pulses Present (present but faint ), Tachycardic. Negative for: Regular Rate and Rhythm, Murmurs, Irregular Rhythm, Rub, Gallop, Muffled Abdomen: Positive for: Normal Bowel Sounds. Negative for: Tenderness, Distention, Peritoneal Signs Upper Extremity: Positive for: Normal Inspection, Capillary Refill < 2s. Negative for: Cyanosis, Edema Lower Extremity: Positive for: Normal Inspection, NORMAL PULSES, Cyanosis, Neurovascularly Intact, Capillary Refill < 2 s. Negative for: Edema, CALF TENDERNESS, Swelling, Erythema, Temperature Abnormalties Neurological: Positive for: Gait Normal, Other (intermittent decerebrate posturing, less frequent today. ). Negative for: GCS=15 (GCS: 4T), CN II-XII Intact, Speech Normal (unable to evaluate ), Motor Func Grossly Intact, Normal Sensory Function, Normal Cerebellar Funct, Norm Deep Tendon Reflexes (diminished ) Skin: Positive for: Dry, Cold (extremities ), Other (mottled ). Negative for: Normal Color (vitiligo?, chronic skin changes from weather exposure and recurrent friction/trauma ), Laceration Lymphatic: Negative for: Cervical Adenopathy Psychiatric: Positive for: Other (comatose). Negative for: Alert, Oriented x 3 , Normal Insight, Normal Concentration - Medications Active Medications: Active Medications Generic Name Dose Route Start Last Admin Trade Name Freq PRN Reason Stop Dose Admin Acetaminophen 650 mg 11/22/17 14:09 11/27/17 17:24 Tylenol 650 Mg Supp UT 650 mg Q4 PRN Administration Fever >100.4 F Acetaminophen 650 mg 11/26/17 09:15 11/26/17 17:50 Tylenol 650mg/20.3ml Solution Ud PO 650 mg Q6 PRN Administration Pain, moderate (4-7) Acetaminophen 650 mg 11/27/17 00:56 11/27/17 20:31 Tylenol 650mg/20.3ml Solution Ud PO 650 mg Q6 PRN Administration fever > 100.4 Aspirin 81 mg 11/19/17 09:00 11/28/17 09:19 Aspirin Chewable NG 81 mg DAILY ZIA Administration Atorvastatin Calcium 40 mg 11/17/17 22:00 11/27/17 21:03 Lipitor PO 40 mg HS ZIA Administration Clopidogrel Bisulfate 75 mg 11/18/17 09:45 11/28/17 09:20 Plavix NG 75 mg DAILY ZIA Administration Enoxaparin Sodium 40 mg 11/28/17 09:00 11/28/17 09:20 Lovenox SC 40 mg DAILY ZIA Administration Protocol Famotidine 20 mg 11/22/17 16:14 11/28/17 09:28 Famotidine IVP 20 mg Q12 ZIA Administration Folic Acid 1 mg 11/17/17 09:00 11/28/17 09:19 Folic Acid GT 1 mg DAILY ZIA Administration Piperacillin Sod/Tazobactam 100 mls @ 100 mls/hr 11/21/17 04:00 11/28/17 09: 21 Sod 3.375 gm/ Sodium Chloride IVPB 100 mls/hr Q6 ZIA Administration Protocol Vancomycin HCl 1 gm/ Sodium 250 mls @ 166.667 mls/hr 11/22/17 09:00 11/28/17 09:23 Chloride IVPB 166.667 mls/hr DAILY ZIA Administration Protocol Thiamine HCl 100 mg 11/17/17 13:45 11/28/17 09:20 Vitamin B1 Tab NG 100 mg DAILY ZIA Administration - Patient Studies Lab Studies: Microbiology Studies 11/22/17 08:48 Blood Culture - Final Blood NO GROWTH AFTER 5 DAYS Gram Stain - Final TEST NOT PERFORMED 11/22/17 08:48 Blood Culture - Final Blood NO GROWTH AFTER 5 DAYS Gram Stain - Final TEST NOT PERFORMED Lab Studies 11/28/17 11/28/17 11/28/17 Range/Units 05:41 04:53 04:20 WBC (4.8-10.8) K/uL RBC (4.40-5.90) Mil/uL Hgb (12.0-18.0) g/dL Hct (35.0-51.0) % MCV (80.0-94.0) fl MCH (27.0-31.0) pg MCHC (33.0-37.0) g/dL RDW (11.5-14.5) % Plt Count (130-400) K/uL MPV (7.2-11.7) fl Neut % (Auto) (50.0-75.0) % Lymph % (Auto) (20.0-40.0) % [place] % (Auto) (0.0-10.0) % Eos % (Auto) (0.0-4.0) % Baso % (Auto) (0.0-2.0) % Neut # (Auto) (1.8-7.0) K/uL Lymph # (Auto) (1.0-4.3) K/uL [place] # (Auto) (0.0-0.8) K/uL Eos # (Auto) (0.0-0.7) K/uL Baso # (Auto) (0.0-0.2) K/uL pCO2 53 H (35-45) mm/Hg pO2 182 H (80-100) mm/Hg HCO3 33.5 H (21-28) mmol/L ABG pH 7.45 (7.35-7.45) ABG Total CO2 38.4 H (22-28) mmol/L ABG O2 Saturation 99.9 H (95-98) % ABG O2 Content 17.0 (15-23) ML/dL ABG Base Excess 11.0 H (-2.0-3.0) mmol/L ABG Hemoglobin 12.1 (11.7-17.4) g/dL ABG Carboxyhemoglobin 1.2 (0.5-1.5) % POC ABG HHb (Measured) 0.1 (0.0-5.0) % ABG Methemoglobin 0.9 (0.0-3.0) % ABG O2 Capacity 17.0 (16-24) mL/dL Roberto Test Yes A-a O2 Difference 180.0 mm/Hg Hgb O2 Saturation 97.7 (95.0-98.0) % Vent Mode A/c Mechanical Rate 12 FiO2 60.0 % Tidal Volume 450 PEEP 5 Sodium 136 (132-148) mmol/l Potassium 4.1 (3.6-5.0) MMOL/L Chloride 93 L (98-107) mmol/L Carbon Dioxide 32 H (22-30) mmol/L Anion Gap 15 (10-20) BUN 14 (9-20) mg/dl Creatinine 0.6 L (0.8-1.5) mg/dl Est GFR ( Amer) > 60 Est GFR (Non-Af Amer) > 60 POC Glucose (mg/dL) 114 H (65-110) mg/dL Random Glucose 133 H (75-110) mg/dL Calcium 8.1 L (8.4-10.2) mg/dL Total Bilirubin 0.5 (0.2-1.3) mg/dl AST 146 H D (17-59) U/L ALT 42 (21-72) U/L Alkaline Phosphatase 83 (38-126) U/L Total Protein 6.6 (6.3-8.2) G/DL Albumin 2.9 L (3.5-5.0) g/dL Globulin 3.7 (2.2-3.9) gm/dL Albumin/Globulin Ratio 0.8 L (1.0-2.1) 11/28/17 11/27/17 11/27/17 Range/Units 04:20 21:13 16:40 WBC 13.8 H (4.8-10.8) K/uL RBC 3.16 L (4.40-5.90) Mil/uL Hgb 9.7 L (12.0-18.0) g/dL Hct 28.7 L (35.0-51.0) % MCV 90.9 (80.0-94.0) fl MCH 30.9 (27.0-31.0) pg MCHC 34.0 (33.0-37.0) g/dL RDW 14.9 H (11.5-14.5) % Plt Count 341 (130-400) K/uL MPV 9.8 (7.2-11.7) fl Neut % (Auto) 85.7 H (50.0-75.0) % Lymph % (Auto) 9.6 L (20.0-40.0) % [place] % (Auto) 3.6 (0.0-10.0) % Eos % (Auto) 0.7 (0.0-4.0) % Baso % (Auto) 0.4 (0.0-2.0) % Neut # (Auto) 11.8 H (1.8-7.0) K/uL Lymph # (Auto) 1.3 (1.0-4.3) K/uL [place] # (Auto) 0.5 (0.0-0.8) K/uL Eos # (Auto) 0.1 (0.0-0.7) K/uL Baso # (Auto) 0.1 (0.0-0.2) K/uL pCO2 (35-45) mm/Hg pO2 (80-100) mm/Hg HCO3 (21-28) mmol/L ABG pH (7.35-7.45) ABG Total CO2 (22-28) mmol/L ABG O2 Saturation (95-98) % ABG O2 Content (15-23) ML/dL ABG Base Excess (-2.0-3.0) mmol/L ABG Hemoglobin (11.7-17.4) g/dL ABG Carboxyhemoglobin (0.5-1.5) % POC ABG HHb (Measured) (0.0-5.0) % ABG Methemoglobin (0.0-3.0) % ABG O2 Capacity (16-24) mL/dL Roberto Test A-a O2 Difference mm/Hg Hgb O2 Saturation (95.0-98.0) % Vent Mode Mechanical Rate FiO2 % Tidal Volume PEEP Sodium (132-148) mmol/l Potassium (3.6-5.0) MMOL/L Chloride (98-107) mmol/L Carbon Dioxide (22-30) mmol/L Anion Gap (10-20) BUN (9-20) mg/dl Creatinine (0.8-1.5) mg/dl Est GFR ( Amer) Est GFR (Non-Af Amer) POC Glucose (mg/dL) 120 H 146 H (65-110) mg/dL Random Glucose (75-110) mg/dL Calcium (8.4-10.2) mg/dL Total Bilirubin (0.2-1.3) mg/dl AST (17-59) U/L ALT (21-72) U/L Alkaline Phosphatase (38-126) U/L Total Protein (6.3-8.2) G/DL Albumin (3.5-5.0) g/dL Globulin (2.2-3.9) gm/dL Albumin/Globulin Ratio (1.0-2.1) 05/20/18 Range/Units 12:20 WBC (4.8-10.8) K/uL RBC (4.40-5.90) Mil/uL Hgb (12.0-18.0) g/dL Hct (35.0-51.0) % MCV (80.0-94.0) fl MCH (27.0-31.0) pg MCHC (33.0-37.0) g/dL RDW (11.5-14.5) % Plt Count (130-400) K/uL MPV (7.2-11.7) fl Neut % (Auto) (50.0-75.0) % Lymph % (Auto) (20.0-40.0) % [place] % (Auto) (0.0-10.0) % Eos % (Auto) (0.0-4.0) % Baso % (Auto) (0.0-2.0) % Neut # (Auto) (1.8-7.0) K/uL Lymph # (Auto) (1.0-4.3) K/uL [place] # (Auto) (0.0-0.8) K/uL Eos # (Auto) (0.0-0.7) K/uL Baso # (Auto) (0.0-0.2) K/uL pCO2 (35-45) mm/Hg pO2 (80-100) mm/Hg HCO3 (21-28) mmol/L ABG pH (7.35-7.45) ABG Total CO2 (22-28) mmol/L ABG O2 Saturation (95-98) % ABG O2 Content (15-23) ML/dL ABG Base Excess (-2.0-3.0) mmol/L ABG Hemoglobin (11.7-17.4) g/dL ABG Carboxyhemoglobin (0.5-1.5) % POC ABG HHb (Measured) (0.0-5.0) % ABG Methemoglobin (0.0-3.0) % ABG O2 Capacity (16-24) mL/dL Roberto Test A-a O2 Difference mm/Hg Hgb O2 Saturation (95.0-98.0) % Vent Mode Mechanical Rate FiO2 % Tidal Volume PEEP Sodium (132-148) mmol/l Potassium (3.6-5.0) MMOL/L Chloride (98-107) mmol/L Carbon Dioxide (22-30) mmol/L Anion Gap (10-20) BUN (9-20) mg/dl Creatinine (0.8-1.5) mg/dl Est GFR ( Amer) Est GFR (Non-Af Amer) POC Glucose (mg/dL) 131 H (65-110) mg/dL Random Glucose (75-110) mg/dL Calcium (8.4-10.2) mg/dL Total Bilirubin (0.2-1.3) mg/dl AST (17-59) U/L ALT (21-72) U/L Alkaline Phosphatase (38-126) U/L Total Protein (6.3-8.2) G/DL Albumin (3.5-5.0) g/dL Globulin (2.2-3.9) gm/dL Albumin/Globulin Ratio (1.0-2.1) Laboratory Results - last 24 hr 11/27/17 11/27/17 11/27/17 12:20 16:40 21:13 WBC RBC Hgb Hct MCV MCH MCHC RDW Plt Count MPV Neut % (Auto) Lymph % (Auto) [place] % (Auto) Eos % (Auto) Baso % (Auto) Neut # (Auto) Lymph # (Auto) [place] # (Auto) Eos # (Auto) Baso # (Auto) pCO2 pO2 HCO3 ABG pH ABG Total CO2 ABG O2 Saturation ABG O2 Content ABG Base Excess ABG Hemoglobin ABG Carboxyhemoglobin POC ABG HHb (Measured) ABG Methemoglobin ABG O2 Capacity Roberto Test A-a O2 Difference Hgb O2 Saturation Vent Mode Mechanical Rate FiO2 Tidal Volume PEEP Sodium Potassium Chloride Carbon Dioxide Anion Gap BUN Creatinine Est GFR ( Amer) Est GFR (Non-Af Amer) POC Glucose (mg/dL) 131 H 146 H 120 H Random Glucose Calcium Total Bilirubin AST ALT Alkaline Phosphatase Total Protein Albumin Globulin Albumin/Globulin Ratio 11/28/17 11/28/17 11/28/17 04:20 04:20 04:53 WBC 13.8 H RBC 3.16 L Hgb 9.7 L Hct 28.7 L MCV 90.9 MCH 30.9 MCHC 34.0 RDW 14.9 H Plt Count 341 MPV 9.8 Neut % (Auto) 85.7 H Lymph % (Auto) 9.6 L [place] % (Auto) 3.6 Eos % (Auto) 0.7 Baso % (Auto) 0.4 Neut # (Auto) 11.8 H Lymph # (Auto) 1.3 [place] # (Auto) 0.5 Eos # (Auto) 0.1 Baso # (Auto) 0.1 pCO2 53 H pO2 182 H HCO3 33.5 H ABG pH 7.45 ABG Total CO2 38.4 H ABG O2 Saturation 99.9 H ABG O2 Content 17.0 ABG Base Excess 11.0 H ABG Hemoglobin 12.1 ABG Carboxyhemoglobin 1.2 POC ABG HHb (Measured) 0.1 ABG Methemoglobin 0.9 ABG O2 Capacity 17.0 Roberto Test Yes A-a O2 Difference 180.0 Hgb O2 Saturation 97.7 Vent Mode A/c Mechanical Rate 12 FiO2 60.0 Tidal Volume 450 PEEP 5 Sodium 136 Potassium 4.1 Chloride 93 L Carbon Dioxide 32 H Anion Gap 15 BUN 14 Creatinine 0.6 L Est GFR ( Amer) > 60 Est GFR (Non-Af Amer) > 60 POC Glucose (mg/dL) Random Glucose 133 H Calcium 8.1 L Total Bilirubin 0.5 AST 146 H D ALT 42 Alkaline Phosphatase 83 Total Protein 6.6 Albumin 2.9 L Globulin 3.7 Albumin/Globulin Ratio 0.8 L 11/28/17 05:41 WBC RBC Hgb Hct MCV MCH MCHC RDW Plt Count MPV Neut % (Auto) Lymph % (Auto) [place] % (Auto) Eos % (Auto) Baso % (Auto) Neut # (Auto) Lymph # (Auto) [place] # (Auto) Eos # (Auto) Baso # (Auto) pCO2 pO2 HCO3 ABG pH ABG Total CO2 ABG O2 Saturation ABG O2 Content ABG Base Excess ABG Hemoglobin ABG Carboxyhemoglobin POC ABG HHb (Measured) ABG Methemoglobin ABG O2 Capacity Roberto Test A-a O2 Difference Hgb O2 Saturation Vent Mode Mechanical Rate FiO2 Tidal Volume PEEP Sodium Potassium Chloride Carbon Dioxide Anion Gap BUN Creatinine Est GFR ( Amer) Est GFR (Non-Af Amer) POC Glucose (mg/dL) 114 H Random Glucose Calcium Total Bilirubin AST ALT Alkaline Phosphatase Total Protein Albumin Globulin Albumin/Globulin Ratio Fingerstick Blood Sugar Results: 114 Critical Care Progress Note - Nutrition Nutrition: Nutrition Category Date Time Status NPO Diet [DIET] Diets 11/15/17 Lunch Active Assessment/Plan (1) Ischemic stroke Current Visit: Yes Status: Acute Comment: 11/21/2017: CT HEAD WITHOUT CONTRAST. IMPRESSION: Evolution of brain infarction is identified partially obscured at the brainstem and more obvious at the bilateral cerebral peduncle as well as small foci at both cerebellar hemispheres as discussed above. No intracranial hemorrhage or significant mass appreciable this at this time. Reiteration of age related neuro degenerative changes. (2) Acute metabolic encephalopathy Current Visit: Yes Status: Acute (3) Acute respiratory insufficiency Current Visit: Yes Status: Acute Comment: Patient intubated for airway protection, due to Altered Level of consciousness (4) Alcohol intoxication Current Visit: Yes Status: Acute (5) Altered mental status Current Visit: Yes Status: Acute Priority: High Comment: Comatosed, no improvement of mental status (6) UTI (urinary tract infection) Current Visit: Yes Status: Acute Comment: Continue IV Vanco and Zosyn Urine C/S positive for gram positive Cocci Sputum and blood C/S with no growth
--- NOTE | 2017-11-28 16:31 | CT ---
PROCEDURE: CT HEAD WITHOUT CONTRAST. HISTORY: ff up CT of head COMPARISON: None available. TECHNIQUE: Axial computed tomography images were obtained through the head/brain without intravenous contrast. Radiation dose: Total exam DLP = 966.57 mGy-cm. This CT exam was performed using one or more of the following dose reduction techniques: Automated exposure control, adjustment of the mA and/or kV according to patient size, and/or use of iterative reconstruction technique. FINDINGS: HEMORRHAGE: No intracranial hemorrhage. BRAIN: Edema is appreciated throughout the entire brainstem extends up to the level of lateral cerebral peduncle cyst with bilateral the thalamic chronic lacunes again evident. More worrisome is the presence of extensive edema throughout the vast majority of the bilateral cerebellar hemispheres hemispheres which appear to compress the posterior margins of the keshia and upper medulla at least somewhat. Artifacts from skullbase obscure this area. The inferior-most margins of this left greater than right cerebellar hemispheres appears spared from edema. Edematous changes now involve the bilateral thalami, right greater than left. Mass effect partially effaces the 4th ventricle but there is no interval obstructive hydrocephalus at this time. CALVARIUM: Unremarkable. PARANASAL SINUSES: Extensive bilateral sphenoid sinusitis is identified in the interval and appears stable in the left maxillary sinus, mild. MASTOID AIR CELLS: Unremarkable as visualized. No inflammatory changes. OTHER FINDINGS: None. IMPRESSION: Gross edematous changes affect cerebellar hemispheres bilaterally sparing only the inferior margins somewhat and causing compression on the the mid to lower brainstem. The 4th ventricle is partially effaced but no obstructive hydrocephalus appreciated at this time. Edema has extend into the bilateral thalami, right greater than left further indicative of expanding infarction. No intracranial hemorrhage. Findings were discussed with Dr. Fernandez 11/28/2017 4:10 p.m..
[2017-11-28] MEDS: Sodium Chloride 3% 500 ML IV SCH (17:15)
[2017-11-28 18:48] LABS: BLOOD UREA NITROGEN 16 mg/dl (9-20); CALCIUM 8.1 mg/dL (8.4-10.2); GFR AFRICAN-AMERICAN > 60; GFR NON-AFRICAN AMERICAN > 60
[2017-11-29] MEDS: Piperacillin/Tazobact 3.375 GM in Sodium Chloride 0.9% 100 ML IVPB SCH ×4 (04:13→21:03)
[2017-11-29 06:03] LABS: ABG ALLEN TEST YES; ARTERIAL BLOOD GAS HCO3 32.8 mmol/L (21-28); ARTERIAL BLOOD GAS HEMOGLOBIN 9.3 g/dL (11.7-17.4); ARTERIAL BLOOD GAS O2 CONTENT 12.8 ML/dL (15-23); ARTERIAL BLOOD GAS O2 SAT 98.7 % (95-98); ARTERIAL BLOOD GAS PCO2 51 mm/Hg (35-45); ARTERIAL BLOOD GAS PH 7.45 (7.35-7.45); ARTERIAL BLOOD GAS PO2 87 mm/Hg (80-100)
[2017-11-29 06:53] LABS: BLOOD UREA NITROGEN 16 mg/dl (9-20); GFR AFRICAN-AMERICAN > 60; GFR NON-AFRICAN AMERICAN > 60
[2017-11-29 06:55] LABS: HEMOGLOBIN 9.1 g/dL (12.0-18.0); MEAN CELL VOLUME 91.7 fl (80.0-94.0); MEAN CORPUSCULAR HEMOGLOBIN 30.7 pg (27.0-31.0); MEAN CORPUSCULAR HGB CONC 33.5 g/dL (33.0-37.0); RBC 2.96 Mil/uL (4.40-5.90); RED CELL DISTRIBUTION WIDTH 15.1 % (11.5-14.5); WHITE BLOOD COUNT 8.3 K/uL (4.8-10.8)
--- NOTE | 2017-11-29 07:41 | RAD ---
HISTORY: intubated COMPARISON: Portable chest 11/28/2017. FINDINGS: Endotracheal and nasogastric tubes do not appear significantly changed in position with right central venous line also stable. LUNGS: There is no interval change in left basilar airspace disease with none identified at the right. PLEURA: No right pleural effusion once again. Left pleural effusion not completely excluded. CARDIOVASCULAR: Cardiac size remains normal with no pulmonary vascular derangement appreciable. OSSEOUS STRUCTURES: No significant abnormalities. VISUALIZED UPPER ABDOMEN: Normal. OTHER FINDINGS: None. IMPRESSION: Stable left basilar atelectasis or infiltrate with left pleural effusion not excluded. No right-sided infiltrate or pleural effusion.
--- NOTE | 2017-11-29 08:19 | CP.PCM.PN ---
Subjective - Date & Time of Evaluation Date of Evaluation: 11/29/17 Time of Evaluation: 08:00 - Subjective Subjective: Patient seen and examined bedside. Intubated on MV PRVC AC mode 12/450/5/60 % ABG 51/87/32/7.4 and CX showing stable left side infiltrate vs atelectasis and and pleural effusion Not sedated , comatose.No pupillary reflex ,cornea present , gag present , does not withdraw to painful stimuli on 3 % Nacl Febrile Tmax 100.3 last 24 hours WBC 8 K ,Hgb 9.1 Seru smolality 290 I/O 3180/1050 CT head showed :Gross edematous changes affect cerebellar hemispheres bilaterally sparing only the inferior margins somewhat and causing compression on the the mid to lower brainstem. The 4th ventricle is partially effaced but no obstructive hydrocephalus appreciated at this time. Edema has extend into the bilateral thalami, right greater than left further indicative of expanding infarction. No intracranial hemorrhage. Objective - Vital Signs/Intake and Output Vital Signs (last 24 hours): Temp Pulse Resp BP Pulse Ox 98.9 F 78 15 131/74 100 11/29/17 04:00 11/29/17 06:00 11/29/17 06:00 11/29/17 06:00 11/29/17 06:00 Intake and Output: 11/29/17 11/29/17 06:59 18:59 Intake Total 1610 Output Total 400 Balance 1210 - Medications Medications: Current Medications Acetaminophen (Tylenol 650 Mg Supp) 650 mg AL Q4 PRN PRN Reason: Fever >100.4 F Last Admin: 11/27/17 17:24 Dose: 650 mg Acetaminophen (Tylenol 650mg/20.3ml Solution Ud) 650 mg PO Q6 PRN PRN Reason: Pain, moderate (4-7) Last Admin: 11/26/17 17:50 Dose: 650 mg Acetaminophen (Tylenol 650mg/20.3ml Solution Ud) 650 mg PO Q6 PRN PRN Reason: fever > 100.4 Last Admin: 11/27/17 20:31 Dose: 650 mg Aspirin (Aspirin Chewable) 81 mg NG DAILY [facility] Last Admin: 11/28/17 09:19 Dose: 81 mg Atorvastatin Calcium (Lipitor) 40 mg PO HS [facility] Last Admin: 11/28/17 21:14 Dose: 40 mg Clopidogrel Bisulfate (Plavix) 75 mg NG DAILY [facility] Last Admin: 11/28/17 09:20 Dose: 75 mg Enoxaparin Sodium (Lovenox) 40 mg SC DAILY [facility] PRN Reason: Protocol Last Admin: 11/28/17 09:20 Dose: 40 mg Folic Acid (Folic Acid) 1 mg GT DAILY [facility] Last Admin: 11/28/17 09:19 Dose: 1 mg Piperacillin Sod/Tazobactam (Sod 3.375 gm/ Sodium Chloride) 100 mls @ 100 mls/ hr IVPB Q6 [facility] PRN Reason: Protocol Last Admin: 11/29/17 04:13 Dose: 100 mls/hr Vancomycin HCl 1 gm/ Sodium (Chloride) 250 mls @ 166.667 mls/hr IVPB DAILY [facility] PRN Reason: Protocol Last Admin: 11/28/17 09:23 Dose: 166.667 mls/hr Sodium Chloride (Hypertonic Saline 3%) 500 mls @ 50 mls/hr IV .Q10H [facility] Stop: 11/29/17 17:02 Last Admin: 11/28/17 17:15 Dose: 50 mls/hr Famotidine (Pepcid 20mg/50ml Premix) 20 mg in 50 mls @ 100 mls/hr IVPB Q12 [facility] Thiamine HCl (Vitamin B1 Tab) 100 mg NG DAILY [facility] Last Admin: 11/28/17 09:20 Dose: 100 mg - Labs Labs: 11/29/17 06:15 11/29/17 06:15 PT 11.6 Seconds (9.8-13.1) 11/15/17 08:15 INR 1.0 (0.9-1.2) 11/15/17 08:15 APTT 29.7 Seconds (25.6-37.1) 11/15/17 08:15 - Constitutional Appears: Other (intubate , comatose ) - Head Exam Head Exam: ATRAUMATIC, NORMOCEPHALIC - Eye Exam Additional comments: pupils fixed , not reactive to light - ENT Exam ENT Exam: Mucous Membranes Dry - Neck Exam Neck Exam: Full ROM, Normal Inspection - Respiratory Exam Respiratory Exam: Decreased Breath Sounds (left base ), Clear to Ausculation Bilateral. absent: Rhonchi, Wheezes - Cardiovascular Exam Cardiovascular Exam: REGULAR RHYTHM, RRR, +S1, +S2. absent: JVD - GI/Abdominal Exam GI & Abdominal Exam: Soft, Normal Bowel Sounds. absent: Distended, Guarding, Tenderness, Rebound - Rectal Exam Rectal Exam: Deferred - Extremities Exam Extremities Exam: Normal Capillary Refill, Normal Inspection Additional comments: right foot plantar aspect callouses bilateral hip large hypopigmented areas - Neurological Exam Additional comments: comatose pupils not reactive to light gag reflex and cornea reflex present - Skin Skin Exam: Dry, Warm Assessment and Plan - Assessment and Plan (Free Text) Assessment: White male , Tez White , unkempt, unknown PMH was brought by EMS after he was observed by bystanders falling in the street. Patient was lethargic on admission however arousable , noted to have a facial droop and his speech was slurred. CT of head : Moderate to significant diffuse/confluent chronic white matter ischemic changes seen extending from the periventricular into the subcortical regions bilaterally. Changes are most pronounced in the parietal lobes. In addition, there are scattered chronic bilateral basal nuclei lacunar type infarcts. Small lacunar type infarcts also seen both cerebellar hemispheres. Note that the possibility of a small hyperacute infarct cannot be excluded on this study. Clinical correlation recommended. Marked dilatation of the atria and occipital horns possibly secondary to central volume loss on which is above most pronounced in the temporal occipital and parietal watershed zone regions On 11/16 noted to be obtunded ,unable to clear his secretions, tachypneic and saturation in the 80%. He was transferred to ICU and intubated for airway protection. Repeat CT of head showed no change. MRI showed pontine, midbrain , cerebellar hemispheres and thalami infarct. 11/22: With episode of vomiting and possible aspiration became hypotensive, tachycardic, febrile, hypoxemic Neurologically comatose with fixed pupil, cornea reflex present, gag reflex present, does not withdraws to painful stimuli. Repeat CT head 11/28 showed :Gross edematous changes affect cerebellar hemispheres bilaterally sparing only the inferior margins somewhat and causing compression on the the mid to lower brainstem. The 4th ventricle is partially effaced but no obstructive hydrocephalus appreciated at this time. Edema has extend into the bilateral thalami, right greater than left further indicative of expanding infarction. No intracranial hemorrhage. 1. Sepsis due to Aspiration Pneumonitis Intubated on Vent ( PVRC/AC 12/450/5/60%) BP improved, off levophed drip , febrile Tmax 10.3 , WBC trended down to normal 8 K procalcitonin was elevated 79 trachea aspirates positive for Citrobacter Continue Zosyn and vanco. ID consulted : Dr. Anderson Continue IVF ,cooling blankets,Tylenol PRN for fever Keep HOB elevated , aspiration, precautions,respiratory toilet with frequent suctioning 2. Acute CVA Patient is comatose at present with fixed and dilated pupils , does not withdraw to painful stimuli MRI brain showed pontine , midbrain, cerebellar hemispheres and thalamic infarct Neurology on consult Repeat CT of head 11/28 showed :Gross edematous changes affect cerebellar hemispheres bilaterally sparing only the inferior margins somewhat and causing compression on the the mid to lower brainstem. The 4th ventricle is partially effaced but no obstructive hydrocephalus appreciated at this time. Edema has extend into the bilateral thalami, right greater than left further indicative of expanding infarction. No intracranial hemorrhage. Discussed with neuro and started 3 % Nacl . Check serum Osm and BM Q8 hours. Poor Prognosis Continue ASA, Statin, Plavix Sharing network has been notified May need to involve Ethic Committee 3. UTI urine cx positive for Strep viridans on Vanco IV 4. ? Alcoholism unclear if alcoholic, cannot obtain hx however ED note stated that patient has history of ETOH ETOH level low urine Tox : neg Thiamine and FA DVT prophylaxis Acute Lovenox
[2017-11-29] MEDS: Sodium Chloride 3% 500 ML IV SCH (10:07)
[2017-11-29] MEDS: Enoxaparin 40 mg Syringe SC SCH (10:08)
[2017-11-29] MEDS: Famotidine 20mg/50ml 20 MG/50 ML BAG IVPB SCH ×2 (10:13→21:08)
--- NOTE | 2017-11-29 12:42 | RAD ---
PROCEDURE: CHEST RADIOGRAPH, 1 VIEW HISTORY: intubated COMPARISON: November 29, 2017. Time of the most recent examination: 04:42. FINDINGS: LUNGS: Stable left lower lobe infiltrate. PLEURA: No pneumothorax or pleural fluid seen. CARDIOVASCULAR: No radiographic findings to suggest acute or significant cardiovascular disease. OSSEOUS STRUCTURES: No significant abnormalities. VISUALIZED UPPER ABDOMEN: Normal. OTHER FINDINGS: Stable position of endotracheal tube and right IJ catheter. Stable position of nasogastric tube. IMPRESSION: No significant interval change compared to the prior examination(s). Stable left lower lobe infiltrate. Stable, satisfactory position ventilatory, vascular and nasogastric apparatus.
--- NOTE | 2017-11-29 20:49 | PN ---
DATE: 11/29/2017 CRITICAL CARE PROGRESS NOTE LOCATION: The patient is in room 435. TIME SPENT: 35 minutes. SUBJECTIVE: The patient was seen and evaluated at the bedside. Events since admission reviewed. Overnight, T-max 100.3. Telemetry sinus rhythm, normotensive, intubated on mechanical ventilation on AC/PRVC rate of 12, tidal volume of 450, FiO2 of 60%, PEEP of 5, observed rate 12, observed tidal volume 500, peak airway pressure at 21, mean airway pressure of 10 and tidal CO2 of 37. No sedation. Remains comatose, but except for response or decorticate to pain and does not follow commands. PHYSICAL EXAMINATION: VITAL SIGNS: Temperature 98.9, heart rate 78, blood pressure 131/74, mean arterial pressure 93, oxygen saturation 100%. Intake 3180 and output 1050. Positive balance 2130. HEAD, EYES, EARS, NOSE AND THROAT: Pupils midline 3 mm, nonreactive. Corneal reflex present. Cold caloric test is negative. Endotracheal tube in place. Responds to manipulation of the endotracheal tube. Mild to moderate secretions in the endotracheal tube. CHEST: Bilateral breath sounds, diminished in intensity, clear to auscultation anteriorly and laterally. HEART: Rhythm regular. S1 and S2 normal. No audible murmur. ABDOMEN: Bowel sounds present and soft. NG tube in place.. EXTREMITIES: 1+ edema. Holloway in place, draining clear urine. NEUROLOGIC: No response to verbal stimuli. Response to pain by decorticate posturing. Corneal present. Pupils 3 mm, nonreactive. CURRENT MEDICATIONS: Aspirin 81 mg daily, Plavix 75 mg NG daily, Lipitor 40 mg NG tube daily, Tylenol 650 every 6 hours p.r.n., Lovenox 40 mg subcutaneous daily, Pepcid 20 mg in 50 mL every 12 hours, folic acid 1 mg NG daily, Zosyn 3.375 g IV every 6 hours, hypertonic saline 3% at 50 mL per hour, thiamine 100 mg NG tube daily, and vancomycin 1 g IV push daily. LABORATORY DATA: WBC 8.3, hemoglobin 9.1, hematocrit 27.1, platelet count 373. PT 11.6, INR 1, PTT 29.7. ABG; pH of 7.45, pCO2 of 51, pO2 of 87, saturation 98.7 on AC/PRVC, 450/60, PEEP of 5. SMA-7; sodium 133, potassium 4.1, chloride 91, CO2 37, blood urea nitrogen 16, creatinine 0.5, and random glucose 119, calcium 8.1. Urinalysis; rbc 18 microscopy, wbc 2, squamous epithelial cells 1. RPR nonreactive. HIV negative. Microbiology; sputum culture positive for Citrobacter diversus. Sensitive to Zosyn, cefepime, and gentamicin. Repeat CAT scan of the head done on 11/28/2017, gross edematous changes affect cerebellar hemispheres bilaterally, sparing only the inferior margins somewhat and causing compression on the mid to lower brainstem. The fourth ventricle is partially effaced, but no obstructive hydrocephalus appreciated. Edema has extended to the bilateral thalami right greater than left, further indicative of expanding infarction. No intracranial hemorrhage. ASSESSMENT AND PLAN: 1. Neurology: Remains comatose. Pupils midline, nonreactive. Corneal present. Minimal gag reflex. Responds to painful stimuli by decorticating. Repeat CAT scan shows extensive edema involving cerebellar hemisphere bilaterally. No obstructive hydrocephalus. Currently on 3% hypertonic saline. Follow serum osmolality, hold 3% saline for osmolality maintain between 300-330. 2. Pulmonary: Intubated on mechanical ventilation, initially for airway protection, left basilar atelectasis and effusion. Suspected aspiration pneumonia. Continue antibiotic. Sputum culture positive for Citrobacter diversus. Sensitive to Zosyn, also on vancomycin. 3. Cardiac: Remains normotensive. Telemetry, no sinus, no arrhythmias. 4. Hematology: Leukocytosis trending down. Hemoglobin and hematocrit consistent with anemia of chronic disease. No active gastrointestinal bleeding noted. 5. Renal: BUN and creatinine 16/0.5. No electrolyte abnormalities. 6. Gastrointestinal: AST more then ALT consider cholestasis. 7. Endocrine: Blood sugar maintain below 180. 8. Infectious disease: Suspected aspiration pneumonia with sputum culture positive for Citrobacter diversus. Sensitive to Zosyn. 9. Appreciate Neurology followup recommendation. Electroencephalogram showed no seizure. Repeat CT with expanding infarction and diffuse edema. 10. Prognosis remains guarded. Discussed with social service. ID has been established. Continue current vent setting. Not a candidate . Head up bed 30 degree up, frequent change of position to avoid sacral breakdown. Continue nasogastric feeding as some tolerated, soap and water enema as the patient has not had bowel movement in the last 2 to 3 days. Raul Finn MD Psychiatric # [id number]
[2017-11-29] MEDS ORDERED: Chlorhexidine Gluconate 1 APPL/PKT TP ONE (23:04)
[2017-11-30] MEDS: Piperacillin/Tazobact 3.375 GM in Sodium Chloride 0.9% 100 ML IVPB SCH ×4 (04:01→21:23)
[2017-11-30] MEDS: Sodium Chloride 3% 500 ML IV SCH ×3 (04:02→20:00)
[2017-11-30 04:58] LABS: ABG ALLEN TEST YES; ARTERIAL BLOOD GAS HCO3 29.6 mmol/L (21-28); ARTERIAL BLOOD GAS HEMOGLOBIN 9.7 g/dL (11.7-17.4); ARTERIAL BLOOD GAS O2 CAPACITY 13.7 mL/dL (16-24); ARTERIAL BLOOD GAS O2 CONTENT 13.6 ML/dL (15-23); ARTERIAL BLOOD GAS O2 SAT 99.2 % (95-98); ARTERIAL BLOOD GAS PCO2 39 mm/Hg (35-45); ARTERIAL BLOOD GAS PH 7.49 (7.35-7.45); ARTERIAL BLOOD GAS PO2 151 mm/Hg (80-100); ARTERIAL BLOOD GAS TCO2 30.9 mmol/L (22-28)
[2017-11-30 06:00] LABS: HEMOGLOBIN 9.4 g/dL (12.0-18.0); MEAN CELL VOLUME 91.5 fl (80.0-94.0); MEAN CORPUSCULAR HEMOGLOBIN 31.1 pg (27.0-31.0); RBC 3.01 Mil/uL (4.40-5.90); RED CELL DISTRIBUTION WIDTH 14.8 % (11.5-14.5); WHITE BLOOD COUNT 10.6 K/uL (4.8-10.8)
[2017-11-30 06:05] LABS: BLOOD UREA NITROGEN 14 mg/dl (9-20); GFR AFRICAN-AMERICAN > 60; GFR NON-AFRICAN AMERICAN > 60
--- NOTE | 2017-11-30 06:50 | CP.CCUPN ---
CCU Subjective - Physician Review Subjective (Free Text): Remains deeply comatose, also very rigid during re-positioning, breathing 17 on AC 12, other hemodynamics have been unremarkable. Significant gastric residuals aspirated from NGT, over 1400ml total last 12H. Tube feeds subsequently have been on hold. Now day # [address] MV support. Most recent CT Brain imaging reviewed. Other vitals and I/O's reviewed. ROS: No other pertinent negs or positives on 10+ system review obtainable due to comatose date. PMSFH: Unknown relative to current disease state. All other Nursing and physician documentation reviewed to date; no new pertinent info noted relevant to current medical problems. EXAM- HEENT: no icterus, no gaze preference, pupils 4 mm and NR, left facial droop NECK: No JVD, supple, carotids equal upstroke bilat/no bruits CHEST: decreased BS bases, no wheezes audible HEART: regular, distant, S1S2, no rubs or murmurs ABD: soft, no distention, no tympany, no palp tenderness, BS hypoactive EXT: No peripheral/ digital cyanosis, no calf tenderness or palpable cords, distal pulses intact and symmetrical. NEURO: flaccid x4 extremities SKIN: no rashes, warm and dry. LABS: ABG 7.49/39/151 WBC= 10.6 HGB= 9.4 PLTs= 413K Cv=005 K= 3.9 XH=569 HCO3= 31 BUN/Cr= 14/0.5 BS= 110 CXR: ETT position Ok above haresh, mild Left basilar haziness ( my interp). EK/14 study- sinus 82/min, T inversion in all anterior leads with poor R progression anteriorly ( my interp). IMPRESSION / MAJOR PROBLEMS NOW: 1. Multi-CVA involving Genie, thalamic nuclei, and cerebellum (as first dxed only on Brain MRI on 11/17) 2. Acute Resp Failure 2 #1 3. Accelerated HTN 2 CVA 4. S. viridans UTI 5. Possible h/o ETOH Abuse suspected PLAN: 1. Latest CT Brain done 11/28: reviewed- Infarct extension and extensive edema noted. Hypertonic saline therapy initiated at that time. Reoeat brain imaging as per Neurology. 2. Now, 3 weeks into present course on MV support. Standard of care would now be considered an appropriate time for tracheostomy; though it is not considered an emergent /urgent procedure. Otherwise, no MV weans feasible given inability to self-protect airway. 3. No spiking fevers since 11/28 whereby T was 101.4F at 3AM. He remains on empiric abx coverage to which C.diversus and S. viridans is sensitive. Last TLC line change was done 11/24. Could consider discontinuing antibiotics or get Procalcitonin level. 4. Patient remains a Tez White with no leads as to formal identification and may be homeless as well. Discuss with PMD / Social Work regarding obtaining Guardianship. CCU Objective - Vital Signs / Intake & Output Vital Signs (Last 4 hours): Vital Signs Temp Pulse Resp BP Pulse Ox 11/30/17 06:00 106 H 12 129/78 100 11/30/17 04:00 98.7 F 100 H 15 101/63 97 Intake and Output (Last 8hrs): Intake & Output 11/29/17 11/29/17 11/30/17 14:59 22:59 06:59 Intake Total 1580 1070 440 Output Total 1000 1760 Balance 1580 70 -1320 Weight 153 lb 8 oz Intake: IV 400 300 440 Intake, Piggyback 400 200 Tube Feeding 480 420 Free Water Flush 300 150 Output: Urine 1000 900 2-way Urethral 1000 900 Emesis 860 - Physical Exam Mouth: Positive for: Dry
--- NOTE | 2017-11-30 07:45 | CP.PCM.PN ---
Subjective - Date & Time of Evaluation Date of Evaluation: 11/30/17 Time of Evaluation: 07:30 - Subjective Subjective: Patient seen and examined bedside. Intubated on MV PRVC AC mode 12/450/5/60 % ABG 39/151/29/7.4 With large residuals overnight , almost 900 ml so feedings are on hold Not sedated , comatose Pupils are equal size sluggish reactive to light ,cornea reflex and gag reflex present , does not withdraw to painful stimuli on 3 % Nacl Afebrile last 24 hours WBC 10 K ,Hgb 9.4 Serum osmolality -pending I/O 3090/2760 CXR showed small left pleural effusion Objective - Vital Signs/Intake and Output Vital Signs (last 24 hours): Temp Pulse Resp BP Pulse Ox 98.7 F 106 H 12 129/78 100 11/30/17 04:00 11/30/17 06:00 11/30/17 06:00 11/30/17 06:00 11/30/17 06:00 Intake and Output: 11/30/17 11/30/17 06:59 18:59 Intake Total 820 Output Total 2760 Balance -1940 - Medications Medications: Current Medications Acetaminophen (Tylenol 650 Mg Supp) 650 mg GA Q4 PRN PRN Reason: Fever >100.4 F Last Admin: 11/27/17 17:24 Dose: 650 mg Acetaminophen (Tylenol 650mg/20.3ml Solution Ud) 650 mg PO Q6 PRN PRN Reason: Pain, moderate (4-7) Last Admin: 11/26/17 17:50 Dose: 650 mg Acetaminophen (Tylenol 650mg/20.3ml Solution Ud) 650 mg PO Q6 PRN PRN Reason: fever > 100.4 Last Admin: 11/27/17 20:31 Dose: 650 mg Aspirin (Aspirin Chewable) 81 mg NG DAILY [facility] Last Admin: 11/29/17 10:07 Dose: 81 mg Atorvastatin Calcium (Lipitor) 40 mg PO HS [facility] Last Admin: 11/29/17 21:08 Dose: 40 mg Bisacodyl (Dulcolax) 10 mg GA DAILY [facility] PRN Reason: Constipation Last Admin: 11/29/17 21:07 Dose: 10 mg Clopidogrel Bisulfate (Plavix) 75 mg NG DAILY [facility] Last Admin: 11/29/17 10:09 Dose: 75 mg Enoxaparin Sodium (Lovenox) 40 mg SC DAILY [facility] PRN Reason: Protocol Last Admin: 11/29/17 10:08 Dose: 40 mg Folic Acid (Folic Acid) 1 mg GT DAILY [facility] Last Admin: 11/29/17 10:07 Dose: 1 mg Piperacillin Sod/Tazobactam (Sod 3.375 gm/ Sodium Chloride) 100 mls @ 100 mls/ hr IVPB Q6 [facility] PRN Reason: Protocol Last Admin: 11/30/17 04:01 Dose: 100 mls/hr Vancomycin HCl 1 gm/ Sodium (Chloride) 250 mls @ 166.667 mls/hr IVPB DAILY [facility] PRN Reason: Protocol Last Admin: 11/29/17 10:11 Dose: 166.667 mls/hr Famotidine (Pepcid 20mg/50ml Premix) 20 mg in 50 mls @ 100 mls/hr IVPB Q12 [facility] Last Admin: 11/29/17 21:08 Dose: 100 mls/hr Sodium Chloride (Hypertonic Saline 3%) 500 mls @ 50 mls/hr IV .Q10H [facility] Stop: 12/01/17 02:16 Last Admin: 11/30/17 04:02 Dose: 50 mls/hr Thiamine HCl (Vitamin B1 Tab) 100 mg NG DAILY [facility] Last Admin: 11/29/17 10:09 Dose: 100 mg - Labs Labs: 11/30/17 04:20 11/30/17 04:20 PT 11.6 Seconds (9.8-13.1) 11/15/17 08:15 INR 1.0 (0.9-1.2) 11/15/17 08:15 APTT 29.7 Seconds (25.6-37.1) 11/15/17 08:15 - Constitutional Appears: Other (comatose , intubated ) - Head Exam Head Exam: ATRAUMATIC, NORMAL INSPECTION, NORMOCEPHALIC - Eye Exam Additional comments: pupils equal size sluggish reactive to light - ENT Exam ENT Exam: Mucous Membranes Dry - Neck Exam Neck Exam: Normal Inspection - Respiratory Exam Respiratory Exam: Clear to Ausculation Bilateral. absent: Rales, Rhonchi, Wheezes - Cardiovascular Exam Cardiovascular Exam: REGULAR RHYTHM, RRR, +S1, +S2. absent: JVD - GI/Abdominal Exam GI & Abdominal Exam: Soft, Hypoactive Bowel Sounds. absent: Distended, Guarding , Rebound - Rectal Exam Rectal Exam: Deferred - Extremities Exam Extremities Exam: absent: Pedal Edema Additional comments: pulses present - Neurological Exam Additional comments: comatose pupils sluggish reactive to light cornea and gag reflex present does not withdraw to painful stimuli - Skin Skin Exam: Warm Additional comments: large hypopigmented areas to bilateral hips Assessment and Plan - Assessment and Plan (Free Text) Assessment: White male , Tez White , unkempt, unknown PMH was brought by EMS after he was observed by bystanders falling in the street. Patient was lethargic on admission however arousable , noted to have a facial droop and his speech was slurred. CT of head : Moderate to significant diffuse/confluent chronic white matter ischemic changes seen extending from the periventricular into the subcortical regions bilaterally. Changes are most pronounced in the parietal lobes. In addition, there are scattered chronic bilateral basal nuclei lacunar type infarcts. Small lacunar type infarcts also seen both cerebellar hemispheres. Note that the possibility of a small hyperacute infarct cannot be excluded on this study. Clinical correlation recommended. Marked dilatation of the atria and occipital horns possibly secondary to central volume loss on which is above most pronounced in the temporal occipital and parietal watershed zone regions On 11/16 noted to be obtunded ,unable to clear his secretions, tachypneic and saturation in the 80%. He was transferred to ICU and intubated for airway protection. Repeat CT of head showed no change. MRI showed pontine, midbrain , cerebellar hemispheres and thalami infarct. 11/22: With episode of vomiting and possible aspiration became hypotensive, tachycardic, febrile, hypoxemic Repeat CT head 11/28 showed :Gross edematous changes affect cerebellar hemispheres bilaterally sparing only the inferior margins somewhat and causing compression on the the mid to lower brainstem. The 4th ventricle is partially effaced but no obstructive hydrocephalus appreciated at this time. Edema has extend into the bilateral thalami, right greater than left further indicative of expanding infarction. No intracranial hemorrhage. Neurologically comatose , pupils sluggish reactive , cornea reflex present, gag reflex present, does not withdraws to painful stimuli, breathing over the vent.Hymodynamically stable,not on pressors , afebrile.With large residuals overnight. 1. Sepsis due to Aspiration Pneumonitis Intubated on Vent ( PVRC/AC 12/450/5/60%) BP improved, off levophed drip , afebrile , WBC trended down to normal 10 K procalcitonin was elevated 79 trachea aspirates positive for Citrobacter Continue Zosyn and vanco. ID consulted : Dr. Anderson With large residuals overnight .Repeat CXR showed stable left pleural effusion Hold feedings for now Keep HOB elevated , aspiration, precautions,respiratory toilet with frequent suctioning 2. Acute CVA Patient is comatose at present with , pupils sluggish , does not withdraw to painful stimuli MRI brain showed pontine , midbrain, cerebellar hemispheres and thalamic infarct Neurology on consult Repeat CT of head 11/28 showed :Gross edematous changes affect cerebellar hemispheres bilaterally sparing only the inferior margins somewhat and causing compression on the the mid to lower brainstem. The 4th ventricle is partially effaced but no obstructive hydrocephalus appreciated at this time. Edema has extend into the bilateral thalami, right greater than left further indicative of expanding infarction. No intracranial hemorrhage. Discussed with neuro and started 3 % Nacl .Monitor serum Osm Poor Prognosis Continue ASA, Statin, Plavix Sharing network has been notified Ethics Committee meeting today to discuss trache and peg placement 3. UTI urine cx positive for Strep viridans on Vanco IV 4. ? Alcoholism unclear if alcoholic, cannot obtain hx however ED note stated that patient has history of ETOH ETOH level low urine Tox : neg Thiamine and FA DVT prophylaxis Acute Lovenox
[2017-11-30] MEDS ORDERED: Bisacodyl 5mg EC Tab PO ONE (08:03)
[2017-11-30] MEDS: Famotidine 20mg/50ml 20 MG/50 ML BAG IVPB SCH ×2 (08:45→20:04)
[2017-11-30] MEDS: Enoxaparin 40 mg Syringe SC SCH (08:45)
[2017-11-30] MEDS ORDERED: Chlorhexidine Gluconate 1 APPL/PKT TP ONE (08:45)
--- NOTE | 2017-11-30 10:58 | CP.PCM.PN ---
Subjective - Date & Time of Evaluation Date of Evaluation: 11/30/17 Time of Evaluation: 10:58 - Subjective Subjective: Mr. White was seen and examined at the bedside in ICU. He remains on mechanical ventilator on PRVC mode. His pupils are slight mydriasis 4mm bilaterally, non- reactive to light accommodation, no corneal reflex, + gag reflex, withdraws from pain stimuli, GCS-4T. He also breath over the set vent. settings. Repeat CT scan of the head done 11/28/2017 showed gross edematous changes affect cerebellar hemispheres bilaterally sparing only the inferior margins somewhat and causing compression on the mid to lower brainstem. The 4 th ventricle partially effaced but no obstructive hydrocephalus appreciated at this time. Edema has extended into the bilateral thalami right greater than the left.There was no untoward events overnight Objective - Vital Signs/Intake and Output Vital Signs (last 24 hours): Temp Pulse Resp BP Pulse Ox 99.5 F 102 H 13 112/67 100 11/30/17 08:00 11/30/17 08:00 11/30/17 08:00 11/30/17 08:00 11/30/17 08:00 Intake and Output: 11/30/17 11/30/17 06:59 18:59 Intake Total 820 400 Output Total 2760 Balance -1940 400 - Medications Medications: Current Medications Acetaminophen (Tylenol 650 Mg Supp) 650 mg [place] Q4 PRN PRN Reason: Fever >100.4 F Last Admin: 11/27/17 17:24 Dose: 650 mg Acetaminophen (Tylenol 650mg/20.3ml Solution Ud) 650 mg PO Q6 PRN PRN Reason: Pain, moderate (4-7) Last Admin: 11/26/17 17:50 Dose: 650 mg Acetaminophen (Tylenol 650mg/20.3ml Solution Ud) 650 mg PO Q6 PRN PRN Reason: fever > 100.4 Last Admin: 11/27/17 20:31 Dose: 650 mg Aspirin (Aspirin Chewable) 81 mg NG DAILY [facility] Last Admin: 11/30/17 08:43 Dose: 81 mg Atorvastatin Calcium (Lipitor) 40 mg PO HS [facility] Last Admin: 11/29/17 21:08 Dose: 40 mg Bisacodyl (Dulcolax) 10 mg VT DAILY PRN PRN Reason: Constipation Last Admin: 11/30/17 08:43 Dose: 10 mg Clopidogrel Bisulfate (Plavix) 75 mg NG DAILY [facility] Last Admin: 11/30/17 08:46 Dose: 75 mg Enoxaparin Sodium (Lovenox) 40 mg SC DAILY [facility] PRN Reason: Protocol Last Admin: 11/30/17 08:45 Dose: 40 mg Folic Acid (Folic Acid) 1 mg GT DAILY [facility] Last Admin: 11/30/17 08:44 Dose: 1 mg Piperacillin Sod/Tazobactam (Sod 3.375 gm/ Sodium Chloride) 100 mls @ 100 mls/ hr IVPB Q6 [facility] PRN Reason: Protocol Last Admin: 11/30/17 09:33 Dose: 100 mls/hr Vancomycin HCl 1 gm/ Sodium (Chloride) 250 mls @ 166.667 mls/hr IVPB DAILY [facility] PRN Reason: Protocol Last Admin: 11/30/17 08:47 Dose: 166.667 mls/hr Famotidine (Pepcid 20mg/50ml Premix) 20 mg in 50 mls @ 100 mls/hr IVPB Q12 [facility] Last Admin: 11/30/17 08:45 Dose: 100 mls/hr Sodium Chloride (Hypertonic Saline 3%) 500 mls @ 50 mls/hr IV .Q10H [facility] Stop: 12/01/17 02:16 Last Admin: 11/30/17 04:02 Dose: 50 mls/hr Thiamine HCl (Vitamin B1 Tab) 100 mg NG DAILY [facility] Last Admin: 11/30/17 08:47 Dose: 100 mg - Labs Labs: 11/30/17 04:20 11/30/17 04:20 PT 11.6 Seconds (9.8-13.1) 11/15/17 08:15 INR 1.0 (0.9-1.2) 11/15/17 08:15 APTT 29.7 Seconds (25.6-37.1) 11/15/17 08:15 - Constitutional Appears: No Acute Distress - Head Exam Head Exam: NORMAL INSPECTION - Eye Exam Pupil Exam: Fixed - Neurological Exam Neuro motor strength exam: Left Upper Extremity: 0, Right Upper Extremity: 0, Left Lower Extremity: 0, Right Lower Extremity: 0 Additional comments: GCS- 4T Assessment and Plan (1) Ischemic stroke Assessment & Plan: Case discussed with Dr. Mcneill, continue all current medical regimen including hypertonic solution keeping na 145- 155, and serum osmolality below 320. Keep head of head elevated at least 30 degrees, normothermic. Recommend to repaet CT of the head without contrast on Tuesday. Status: Acute
--- NOTE | 2017-11-30 11:52 | RAD ---
HISTORY: intubated COMPARISON: Portable chest 12/05/2017. FINDINGS: LUNGS: Endotracheal and nasogastric tubes are not significantly changed in position as well as right central venous line. Improved aeration is noted at the left base with diminished left basilar atelectasis or infiltrate. Trace left pleural effusion remains. No pneumothorax bilaterally. No right-sided infiltrate or pleural effusion. PLEURA: As above. CARDIOVASCULAR: Normal. OSSEOUS STRUCTURES: No significant abnormalities. VISUALIZED UPPER ABDOMEN: Normal. OTHER FINDINGS: None. IMPRESSION: Improving exam including left basilar atelectasis or infiltrate with limited residual. Trace left pleural effusion present.
[2017-11-30] MEDS ORDERED: Pneumococcal 23-Valent Vaccine IM ONE (16:31)
[2017-12-01] MEDS: Piperacillin/Tazobact 3.375 GM in Sodium Chloride 0.9% 100 ML IVPB SCH ×4 (03:20→21:01)
[2017-12-01 05:33] LABS: ABG ALLEN TEST YES; ARTERIAL BLOOD GAS HCO3 29.5 mmol/L (21-28); ARTERIAL BLOOD GAS HEMOGLOBIN 10.9 g/dL (11.7-17.4); ARTERIAL BLOOD GAS O2 CAPACITY 15.2 mL/dL (16-24); ARTERIAL BLOOD GAS O2 CONTENT 15.1 ML/dL (15-23); ARTERIAL BLOOD GAS O2 SAT 99.3 % (95-98); ARTERIAL BLOOD GAS PCO2 51 mm/Hg (35-45); ARTERIAL BLOOD GAS PO2 127 mm/Hg (80-100); ARTERIAL BLOOD GAS TCO2 33.2 mmol/L (22-28)
[2017-12-01 05:42] LABS: HEMOGLOBIN 7.7 g/dL (12.0-18.0); MEAN CELL VOLUME 92.5 fl (80.0-94.0); MEAN CORPUSCULAR HEMOGLOBIN 30.2 pg (27.0-31.0); MEAN CORPUSCULAR HGB CONC 32.6 g/dL (33.0-37.0); RBC 2.56 Mil/uL (4.40-5.90); WHITE BLOOD COUNT 13.5 K/uL (4.8-10.8)
[2017-12-01 05:43] LABS: BLOOD UREA NITROGEN 16 mg/dl (9-20); CALCIUM 7.7 mg/dL (8.4-10.2); GFR AFRICAN-AMERICAN > 60; GFR NON-AFRICAN AMERICAN > 60
[2017-12-01] MEDS ORDERED: Potassium Chloride 20 mEq/15 ml LIQ UD GT ONE (08:00)
--- NOTE | 2017-12-01 08:47 | RAD ---
HISTORY: intubated COMPARISON: Chest radiograph dated 11/30/2017. FINDINGS: LUNGS: Pulmonary vascular congestion. Left basilar atelectasis. PLEURA: Small left pleural effusion. No pneumothorax apparent. CARDIOVASCULAR: Atherosclerotic aortic calcifications. Cardiomediastinal silhouette within normal limits. OSSEOUS STRUCTURES: Unchanged. VISUALIZED UPPER ABDOMEN: Normal. OTHER FINDINGS: Endotracheal, enteric tubes, unchanged. Right internal jugular access central venous catheter, unchanged. IMPRESSION: Grossly similar pulmonary vascular congestion, left basilar atelectasis and small left pleural effusion.
--- NOTE | 2017-12-01 09:20 | CP.PCM.PN ---
Subjective - Date & Time of Evaluation Date of Evaluation: 12/01/17 Time of Evaluation: 09:20 - Subjective Subjective: Mr. White was seen and examined at the bedside in ICU. He remains on mechanical ventilator on PRVC mode. His pupils are slight mydriasis 4mm bilaterally, non- reactive to light accommodation, no corneal reflex, + gag reflex, withdraws from pain stimuli, GCS-4T. He also breath over the set vent. settings. Hypertonic solution is already discontinued with latest Na-145 and serum osmolality is 303.There was no untoward events overnight Objective - Vital Signs/Intake and Output Vital Signs (last 24 hours): Temp Pulse Resp BP Pulse Ox 100.1 F H 80 14 107/58 L 100 12/01/17 08:00 12/01/17 08:00 12/01/17 08:00 12/01/17 08:00 12/01/17 08:00 Intake and Output: 12/01/17 12/01/17 06:59 18:59 Intake Total 1490 200 Output Total 1300 Balance 190 200 - Medications Medications: Current Medications Acetaminophen (Tylenol 650 Mg Supp) 650 mg [place] Q4 PRN PRN Reason: Fever >100.4 F Last Admin: 11/27/17 17:24 Dose: 650 mg Acetaminophen (Tylenol 650mg/20.3ml Solution Ud) 650 mg PO Q6 PRN PRN Reason: Pain, moderate (4-7) Last Admin: 11/26/17 17:50 Dose: 650 mg Acetaminophen (Tylenol 650mg/20.3ml Solution Ud) 650 mg PO Q6 PRN PRN Reason: fever > 100.4 Last Admin: 11/27/17 20:31 Dose: 650 mg Aspirin (Aspirin Chewable) 81 mg NG DAILY [facility] Last Admin: 11/30/17 08:43 Dose: 81 mg Atorvastatin Calcium (Lipitor) 40 mg PO HS [facility] Last Admin: 11/30/17 21:22 Dose: 40 mg Bisacodyl (Dulcolax) 10 mg GA DAILY PRN PRN Reason: Constipation Last Admin: 11/30/17 08:43 Dose: 10 mg Clopidogrel Bisulfate (Plavix) 75 mg NG DAILY [facility] Last Admin: 11/30/17 08:46 Dose: 75 mg Enoxaparin Sodium (Lovenox) 40 mg SC DAILY [facility] PRN Reason: Protocol Last Admin: 11/30/17 08:45 Dose: 40 mg Folic Acid (Folic Acid) 1 mg GT DAILY [facility] Last Admin: 11/30/17 08:44 Dose: 1 mg Piperacillin Sod/Tazobactam (Sod 3.375 gm/ Sodium Chloride) 100 mls @ 100 mls/ hr IVPB Q6 [facility] PRN Reason: Protocol Last Admin: 12/01/17 03:20 Dose: 100 mls/hr Vancomycin HCl 1 gm/ Sodium (Chloride) 250 mls @ 166.667 mls/hr IVPB DAILY [facility] PRN Reason: Protocol Last Admin: 11/30/17 08:47 Dose: 166.667 mls/hr Famotidine (Pepcid 20mg/50ml Premix) 20 mg in 50 mls @ 100 mls/hr IVPB Q12 [facility] Last Admin: 11/30/17 20:04 Dose: 100 mls/hr Thiamine HCl (Vitamin B1 Tab) 100 mg NG DAILY [facility] Last Admin: 11/30/17 08:47 Dose: 100 mg - Labs Labs: 12/01/17 04:30 12/01/17 04:30 PT 11.6 Seconds (9.8-13.1) 11/15/17 08:15 INR 1.0 (0.9-1.2) 11/15/17 08:15 APTT 29.7 Seconds (25.6-37.1) 11/15/17 08:15 - Constitutional Appears: No Acute Distress - Head Exam Head Exam: NORMAL INSPECTION - Eye Exam Pupil Exam: Mydriatic Additional comments: 4 mm bilaterally. - Neurological Exam Neuro motor strength exam: Left Upper Extremity: 0, Right Upper Extremity: 0, Left Lower Extremity: 0, Right Lower Extremity: 0 Additional comments: GCS-4T Assessment and Plan (1) Ischemic stroke Assessment & Plan: Case discussed with Dr. Mcneill, continue all current medical regimen. Recommend to treat any abnormalities in hematology, electrolyte abnormalities, keep head of bed elevated at least 30 degrees, blood pressure and glycemic control. Status: Acute
[2017-12-01] MEDS: Enoxaparin 40 mg Syringe SC SCH (09:30)
[2017-12-01] MEDS: Famotidine 20mg/50ml 20 MG/50 ML BAG IVPB SCH ×2 (09:31→20:41)
--- NOTE | 2017-12-01 09:45 | CP.PCM.PN ---
Subjective - Date & Time of Evaluation Date of Evaluation: 12/01/17 Time of Evaluation: 09:30 - Subjective Subjective: Pt remains comatose noticed sl reaction to painful stimuli by movement of extremities Pupils nonreactive Breaths over Vent Intubated on Mech Vent Tolerating OGT feeding - now at 50ml/hr Low grade fever Objective - Vital Signs/Intake and Output Vital Signs (last 24 hours): Temp Pulse Resp BP Pulse Ox 100.1 F H 80 14 107/58 L 100 12/01/17 08:00 12/01/17 08:00 12/01/17 08:00 12/01/17 08:00 12/01/17 08:00 Intake and Output: 12/01/17 12/01/17 06:59 18:59 Intake Total 1490 200 Output Total 1300 Balance 190 200 - Medications Medications: Current Medications Acetaminophen (Tylenol 650 Mg Supp) 650 mg [place] Q4 PRN PRN Reason: Fever >100.4 F Last Admin: 11/27/17 17:24 Dose: 650 mg Acetaminophen (Tylenol 650mg/20.3ml Solution Ud) 650 mg PO Q6 PRN PRN Reason: Pain, moderate (4-7) Last Admin: 11/26/17 17:50 Dose: 650 mg Acetaminophen (Tylenol 650mg/20.3ml Solution Ud) 650 mg PO Q6 PRN PRN Reason: fever > 100.4 Last Admin: 11/27/17 20:31 Dose: 650 mg Aspirin (Aspirin Chewable) 81 mg NG DAILY [facility] Last Admin: 12/01/17 09:29 Dose: 81 mg Atorvastatin Calcium (Lipitor) 40 mg PO HS [facility] Last Admin: 11/30/17 21:22 Dose: 40 mg Bisacodyl (Dulcolax) 10 mg OK DAILY PRN PRN Reason: Constipation Last Admin: 11/30/17 08:43 Dose: 10 mg Clopidogrel Bisulfate (Plavix) 75 mg NG DAILY [facility] Last Admin: 12/01/17 09:31 Dose: 75 mg Enoxaparin Sodium (Lovenox) 40 mg SC DAILY [facility] PRN Reason: Protocol Last Admin: 12/01/17 09:30 Dose: 40 mg Folic Acid (Folic Acid) 1 mg GT DAILY [facility] Last Admin: 12/01/17 09:29 Dose: 1 mg Piperacillin Sod/Tazobactam (Sod 3.375 gm/ Sodium Chloride) 100 mls @ 100 mls/ hr IVPB Q6 [facility] PRN Reason: Protocol Last Admin: 12/01/17 09:32 Dose: 100 mls/hr Vancomycin HCl 1 gm/ Sodium (Chloride) 250 mls @ 166.667 mls/hr IVPB DAILY [facility] PRN Reason: Protocol Last Admin: 12/01/17 09:31 Dose: 166.667 mls/hr Famotidine (Pepcid 20mg/50ml Premix) 20 mg in 50 mls @ 100 mls/hr IVPB Q12 [facility] Last Admin: 12/01/17 09:31 Dose: 100 mls/hr Thiamine HCl (Vitamin B1 Tab) 100 mg NG DAILY [facility] Last Admin: 11/30/17 08:47 Dose: 100 mg - Labs Labs: 12/01/17 04:30 12/01/17 04:30 PT 11.6 Seconds (9.8-13.1) 11/15/17 08:15 INR 1.0 (0.9-1.2) 11/15/17 08:15 APTT 29.7 Seconds (25.6-37.1) 11/15/17 08:15 - Constitutional Appears: chronically ill, Intubated on Vent - Head Exam Head Exam: NORMAL INSPECTION, NORMOCEPHALIC - Eye Exam Eye Exam: Pupil Exam: Fixed, 4mm, not reactive to light - ENT Exam ENT Exam: Mucous Membranes Dry, Normal External Ear Exam - Neck Exam Neck Exam: absent: Meningismus - Respiratory Exam Respiratory Exam: Rhonchi Additional comments: Intubated on Vent - Cardiovascular Exam Cardiovascular Exam: REGULAR RHYTHM, +S1, +S2 - GI/Abdominal Exam GI & Abdominal Exam: Soft, Normal Bowel Sounds OGT in place - Extremities Exam Extremities Exam: Normal Capillary Refill, Pedal Edema - Neurological Exam Additional comments: responds to pain with movement of extremities fixed pupils Assessment and Plan (1) Acute CVA (cerebrovascular accident) Status: Acute (2) Altered mental status Status: Acute (3) Slurring of speech Status: Acute (4) HTN (hypertension) Status: Chronic (5) Acute metabolic encephalopathy Status: Acute (6) Acute respiratory insufficiency Status: Acute (7) DVT prophylaxis Status: Acute - Assessment and Plan (Free Text) Assessment: White male , Tez White , unkempt, unknown PMH was brought by EMS after he was observed by bystanders falling in the street. Patient was lethargic on admission however arousable , noted to have a facial droop and his speech was slurred. CT of head : Moderate to significant diffuse/confluent chronic white matter ischemic changes seen extending from the periventricular into the subcortical regions bilaterally. Changes are most pronounced in the parietal lobes. In addition, there are scattered chronic bilateral basal nuclei lacunar type infarcts. Small lacunar type infarcts also seen both cerebellar hemispheres. Note that the possibility of a small hyperacute infarct cannot be excluded on this study. Clinical correlation recommended. Marked dilatation of the atria and occipital horns possibly secondary to central volume loss on which is above most pronounced in the temporal occipital and parietal watershed zone regions On 11/16 noted to be obtunded ,unable to clear his secretions, tachypneic and saturation in the 80%. He was transferred to ICU and intubated for airway protection. Repeat CT of head showed no change. MRI showed pontine, midbrain , cerebellar hemispheres and thalami infarct. 11/22: With episode of vomiting and possible aspiration became hypotensive, tachycardic, febrile, hypoxemic Repeat CT head 11/28 showed :Gross edematous changes affect cerebellar hemispheres bilaterally sparing only the inferior margins somewhat and causing compression on the the mid to lower brainstem. The 4th ventricle is partially effaced but no obstructive hydrocephalus appreciated at this time. Edema has extend into the bilateral thalami, right greater than left further indicative of expanding infarction. No intracranial hemorrhage. Neurologically comatose , pupils : 4mm nonreactive to light, cornea reflex present, gag reflex present, slightly withdraws to painful stimuli, breathing over the vent. Hymodynamically stable, not on pressors , afebrile. 1. Sepsis due to Aspiration Pneumonia Intubated on Vent ( PVRC/AC 12/450/5/60%) BP improved, off levophed drip , afebrile , WBC trended down to normal 10 K procalcitonin was elevated 79 trachea aspirates positive for Citrobacter Continue Zosyn and vanco. ID consulted : Dr. Anderson Keep HOB elevated , aspiration, precautions,respiratory toilet with frequent suctioning 2. Acute CVA Patient is comatose at present , noticed slight withdrawal to painful stimuli , pupils nponreactive MRI brain showed pontine , midbrain, cerebellar hemispheres and thalamic infarct Neurology on consult Repeat CT of head 11/28 showed :Gross edematous changes affect cerebellar hemispheres bilaterally sparing only the inferior margins somewhat and causing compression on the the mid to lower brainstem. The 4th ventricle is partially effaced but no obstructive hydrocephalus appreciated at this time. Edema has extend into the bilateral thalami, right greater than left further indicative of expanding infarction. No intracranial hemorrhage. Placed on Hypertonic Saline to keep Na at least 145 Poor Prognosis Continue ASA, Statin, Plavix [employer] has been notified Ethics Committee met -rec application for emergency guardianship - Plan for TRach, PEG 3. UTI urine cx positive for Strep viridans on Vanco IV 4. ? Alcoholism unclear if alcoholic, cannot obtain hx however ED note stated that patient has history of ETOH ETOH level low urine Tox : neg Thiamine and FA DVT prophylaxis Acute Lovenox
--- NOTE | 2017-12-01 09:52 | CP.CCUPN ---
<WilliammaritzaMich van - Last Filed: 12/01/17 13:04> CCU Subjective - Physician Review Subjective (Free Text): pt seen and examined at bedside this morning. Intubated, triggering vent, on A/ C rate of 12, FIO2 60, Vt 450, PEEP 5. Remains febrile overnight. +Corneal reflex, no gag reflex, decerebrates to pain, +carinal reflex. Episodic twitching /hick uping. Increased weight gain this week, up to 74kg from 52. No BM for over 5days now. CCU Objective - Vital Signs / Intake & Output Vital Signs (Last 4 hours): Vital Signs Temp Pulse Resp BP Pulse Ox 12/01/17 08:00 100.1 F H 80 14 107/58 L 100 12/01/17 06:02 88 18 113/60 100 Intake and Output (Last 8hrs): Intake & Output 11/30/17 12/01/17 12/01/17 22:59 06:59 14:59 Intake Total 1440 1100 200 Output Total 600 1300 Balance 840 -200 200 Weight 74.077 kg Intake: IV 650 400 100 Intake, Piggyback 200 100 Oral 60 Tube Feeding 290 390 100 Free Water Flush 300 150 Output: Urine 600 1300 2-way Urethral 600 1300 Other: # Bowel Movements 0 - Physical Exam Head: Positive for: Atraumatic, Normocephalic. Negative for: Ecchymosis, Abrasion, Laceration Pupils: Positive for: Non-Reactive, Other (midline, +corneal reflex, approx 4mm ). Negative for: PERRL Extroacular Muscles: Negative for: EOMI, Gaze Palsy Conjunctiva: Positive for: Normal. Negative for: Injected, Icteric Ears: Positive for: Normal Mouth: Positive for: Dry Pharnyx: Positive for: Normal. Negative for: ERYTHEMA, EXUDATE, TONSILS ENLARGED Neck: Positive for: Normal Range of Motion, Trachea Midline, Other (R. IJ line) . Negative for: Meningeal Signs, JVD, Lymphadenopathy Respiratory/Chest: Positive for: Good Air Exchange. Negative for: Clear to Auscultation (gugrling sounds, distant breath sounds b/l), Respiratory Distress , Decreased Breath Sounds, Rales, Retracting, Rhonchi, Tachypneic, Tender to Palpation Cardiovascular: Positive for: Normal S1, S2, Peripheal Pulses Present (present but faint ), Tachycardic. Negative for: Regular Rate and Rhythm, Murmurs, Irregular Rhythm, Rub, Gallop, Muffled Abdomen: Positive for: Normal Bowel Sounds. Negative for: Tenderness, Distention, Peritoneal Signs Upper Extremity: Positive for: Normal Inspection, Capillary Refill < 2s. Negative for: Cyanosis, Edema Lower Extremity: Positive for: Normal Inspection, NORMAL PULSES, Cyanosis, Neurovascularly Intact, Capillary Refill < 2 s. Negative for: Edema, CALF TENDERNESS, Swelling, Erythema, Temperature Abnormalties Neurological: Positive for: Gait Normal, Other (intermittent decerebrate posturing, less frequent today. ). Negative for: GCS=15 (GCS: 4T), CN II-XII Intact, Speech Normal (unable to evaluate ), Motor Func Grossly Intact, Normal Sensory Function, Normal Cerebellar Funct, Norm Deep Tendon Reflexes (diminished ) Skin: Positive for: Dry, Cold (extremities ), Other (mottled ). Negative for: Normal Color (vitiligo?, chronic skin changes from weather exposure and recurrent friction/trauma ), Laceration Lymphatic: Negative for: Cervical Adenopathy Psychiatric: Positive for: Other (comatose). Negative for: Alert, Oriented x 3 , Normal Insight, Normal Concentration - Medications Active Medications: Active Medications Generic Name Dose Route Start Last Admin Trade Name Freq PRN Reason Stop Dose Admin Acetaminophen 650 mg 11/22/17 14:09 11/27/17 17:24 Tylenol 650 Mg Supp IL 650 mg Q4 PRN Administration Fever >100.4 F Acetaminophen 650 mg 11/26/17 09:15 11/26/17 17:50 Tylenol 650mg/20.3ml Solution Ud PO 650 mg Q6 PRN Administration Pain, moderate (4-7) Acetaminophen 650 mg 11/27/17 00:56 11/27/17 20:31 Tylenol 650mg/20.3ml Solution Ud PO 650 mg Q6 PRN Administration fever > 100.4 Aspirin 81 mg 11/19/17 09:00 12/01/17 09:29 Aspirin Chewable NG 81 mg DAILY ZIA Administration Atorvastatin Calcium 40 mg 11/17/17 22:00 11/30/17 21:22 Lipitor PO 40 mg HS ZIA Administration Bisacodyl 10 mg 11/29/17 17:14 11/30/17 08:43 Dulcolax IL 10 mg DAILY PRN Administration Constipation Clopidogrel Bisulfate 75 mg 11/18/17 09:45 12/01/17 09:31 Plavix NG 75 mg DAILY ZIA Administration Enoxaparin Sodium 40 mg 11/28/17 09:00 12/01/17 09:30 Lovenox SC 40 mg DAILY ZIA Administration Protocol Folic Acid 1 mg 11/17/17 09:00 12/01/17 09:29 Folic Acid GT 1 mg DAILY ZIA Administration Piperacillin Sod/Tazobactam 100 mls @ 100 mls/hr 11/21/17 04:00 12/01/17 09: 32 Sod 3.375 gm/ Sodium Chloride IVPB 100 mls/hr Q6 ZIA Administration Protocol Vancomycin HCl 1 gm/ Sodium 250 mls @ 166.667 mls/hr 11/22/17 09:00 12/01/17 09:31 Chloride IVPB 166.667 mls/hr DAILY ZIA Administration Protocol Famotidine 20 mg in 50 mls @ 100 mls/hr 11/29/17 09:00 12/01/17 09:31 Pepcid 20mg/50ml Premix IVPB 100 mls/hr Q12 ZIA Administration Thiamine HCl 100 mg 11/17/17 13:45 11/30/17 08:47 Vitamin B1 Tab NG 100 mg DAILY ZIA Administration - Patient Studies Lab Studies: Lab Studies 12/01/17 12/01/17 12/01/17 Range/Units 05:28 04:30 04:30 WBC 13.5 H (4.8-10.8) K/uL RBC 2.56 L (4.40-5.90) Mil/uL Hgb 7.7 L (12.0-18.0) g/dL Hct 23.7 L (35.0-51.0) % MCV 92.5 (80.0-94.0) fl MCH 30.2 (27.0-31.0) pg MCHC 32.6 L (33.0-37.0) g/dL RDW 15.0 H (11.5-14.5) % Plt Count 375 (130-400) K/uL pCO2 51 H (35-45) mm/Hg pO2 127 H (80-100) mm/Hg HCO3 29.5 H (21-28) mmol/L ABG pH 7.40 (7.35-7.45) ABG Total CO2 33.2 H (22-28) mmol/L ABG O2 Saturation 99.3 H (95-98) % ABG O2 Content 15.1 (15-23) ML/dL ABG Base Excess 5.8 H (-2.0-3.0) mmol/L ABG Hemoglobin 10.9 L (11.7-17.4) g/dL ABG Carboxyhemoglobin 1.2 (0.5-1.5) % POC ABG HHb (Measured) 0.7 (0.0-5.0) % ABG Methemoglobin 0.9 (0.0-3.0) % ABG O2 Capacity 15.2 L (16-24) mL/dL Roberto Test Yes A-a O2 Difference 237.0 mm/Hg Hgb O2 Saturation 97.2 (95.0-98.0) % Vent Mode A/c Mechanical Rate 450 FiO2 60.0 % Tidal Volume 12 PEEP 5 Sodium 145 (132-148) mmol/l Potassium 3.5 L (3.6-5.0) MMOL/L Chloride 105 (98-107) mmol/L Carbon Dioxide 30 (22-30) mmol/L Anion Gap 14 (10-20) BUN 16 (9-20) mg/dl Creatinine 0.6 L (0.8-1.5) mg/dl Est GFR ( Amer) > 60 Est GFR (Non-Af Amer) > 60 POC Glucose (mg/dL) (65-110) mg/dL Random Glucose 117 H (75-110) mg/dL Serum Osmolality (272-300) mosm/kg Calcium 7.7 L (8.4-10.2) mg/dL 12/01/17 12/01/17 11/30/17 Range/Units 04:30 04:12 21:04 WBC (4.8-10.8) K/uL RBC (4.40-5.90) Mil/uL Hgb (12.0-18.0) g/dL Hct (35.0-51.0) % MCV (80.0-94.0) fl MCH (27.0-31.0) pg MCHC (33.0-37.0) g/dL RDW (11.5-14.5) % Plt Count (130-400) K/uL pCO2 (35-45) mm/Hg pO2 (80-100) mm/Hg HCO3 (21-28) mmol/L ABG pH (7.35-7.45) ABG Total CO2 (22-28) mmol/L ABG O2 Saturation (95-98) % ABG O2 Content (15-23) ML/dL ABG Base Excess (-2.0-3.0) mmol/L ABG Hemoglobin (11.7-17.4) g/dL ABG Carboxyhemoglobin (0.5-1.5) % POC ABG HHb (Measured) (0.0-5.0) % ABG Methemoglobin (0.0-3.0) % ABG O2 Capacity (16-24) mL/dL Roberto Test A-a O2 Difference mm/Hg Hgb O2 Saturation (95.0-98.0) % Vent Mode Mechanical Rate FiO2 % Tidal Volume PEEP Sodium (132-148) mmol/l Potassium (3.6-5.0) MMOL/L Chloride (98-107) mmol/L Carbon Dioxide (22-30) mmol/L Anion Gap (10-20) BUN (9-20) mg/dl Creatinine (0.8-1.5) mg/dl Est GFR ( Amer) Est GFR (Non-Af Amer) POC Glucose (mg/dL) 126 H 103 (65-110) mg/dL Random Glucose (75-110) mg/dL Serum Osmolality 303 H (272-300) mosm/kg Calcium (8.4-10.2) mg/dL 11/30/17 11/30/17 Range/Units 16:32 11:18 WBC (4.8-10.8) K/uL RBC (4.40-5.90) Mil/uL Hgb (12.0-18.0) g/dL Hct (35.0-51.0) % MCV (80.0-94.0) fl MCH (27.0-31.0) pg MCHC (33.0-37.0) g/dL RDW (11.5-14.5) % Plt Count (130-400) K/uL pCO2 (35-45) mm/Hg pO2 (80-100) mm/Hg HCO3 (21-28) mmol/L ABG pH (7.35-7.45) ABG Total CO2 (22-28) mmol/L ABG O2 Saturation (95-98) % ABG O2 Content (15-23) ML/dL ABG Base Excess (-2.0-3.0) mmol/L ABG Hemoglobin (11.7-17.4) g/dL ABG Carboxyhemoglobin (0.5-1.5) % POC ABG HHb (Measured) (0.0-5.0) % ABG Methemoglobin (0.0-3.0) % ABG O2 Capacity (16-24) mL/dL Roberto Test A-a O2 Difference mm/Hg Hgb O2 Saturation (95.0-98.0) % Vent Mode Mechanical Rate FiO2 % Tidal Volume PEEP Sodium (132-148) mmol/l Potassium (3.6-5.0) MMOL/L Chloride (98-107) mmol/L Carbon Dioxide (22-30) mmol/L Anion Gap (10-20) BUN (9-20) mg/dl Creatinine (0.8-1.5) mg/dl Est GFR ( Amer) Est GFR (Non-Af Amer) POC Glucose (mg/dL) 100 105 (65-110) mg/dL Random Glucose (75-110) mg/dL Serum Osmolality (272-300) mosm/kg Calcium (8.4-10.2) mg/dL Laboratory Results - last 24 hr 11/30/17 11/30/17 11/30/17 11:18 16:32 21:04 WBC RBC Hgb Hct MCV MCH MCHC RDW Plt Count pCO2 pO2 HCO3 ABG pH ABG Total CO2 ABG O2 Saturation ABG O2 Content ABG Base Excess ABG Hemoglobin ABG Carboxyhemoglobin POC ABG HHb (Measured) ABG Methemoglobin ABG O2 Capacity Roberto Test A-a O2 Difference Hgb O2 Saturation Vent Mode Mechanical Rate FiO2 Tidal Volume PEEP Sodium Potassium Chloride Carbon Dioxide Anion Gap BUN Creatinine Est GFR ( Amer) Est GFR (Non-Af Amer) POC Glucose (mg/dL) 105 100 103 Random Glucose Serum Osmolality Calcium 12/01/17 12/01/17 12/01/17 04:12 04:30 04:30 WBC 13.5 H RBC 2.56 L Hgb 7.7 L Hct 23.7 L MCV 92.5 MCH 30.2 MCHC 32.6 L RDW 15.0 H Plt Count 375 pCO2 pO2 HCO3 ABG pH ABG Total CO2 ABG O2 Saturation ABG O2 Content ABG Base Excess ABG Hemoglobin ABG Carboxyhemoglobin POC ABG HHb (Measured) ABG Methemoglobin ABG O2 Capacity Roberto Test A-a O2 Difference Hgb O2 Saturation Vent Mode Mechanical Rate FiO2 Tidal Volume PEEP Sodium Potassium Chloride Carbon Dioxide Anion Gap BUN Creatinine Est GFR ( Amer) Est GFR (Non-Af Amer) POC Glucose (mg/dL) 126 H Random Glucose Serum Osmolality 303 H Calcium 12/01/17 12/01/17 04:30 05:28 WBC RBC Hgb Hct MCV MCH MCHC RDW Plt Count pCO2 51 H pO2 127 H HCO3 29.5 H ABG pH 7.40 ABG Total CO2 33.2 H ABG O2 Saturation 99.3 H ABG O2 Content 15.1 ABG Base Excess 5.8 H ABG Hemoglobin 10.9 L ABG Carboxyhemoglobin 1.2 POC ABG HHb (Measured) 0.7 ABG Methemoglobin 0.9 ABG O2 Capacity 15.2 L Roberto Test Yes A-a O2 Difference 237.0 Hgb O2 Saturation 97.2 Vent Mode A/c Mechanical Rate 450 FiO2 60.0 Tidal Volume 12 PEEP 5 Sodium 145 Potassium 3.5 L Chloride 105 Carbon Dioxide 30 Anion Gap 14 BUN 16 Creatinine 0.6 L Est GFR ( Amer) > 60 Est GFR (Non-Af Amer) > 60 POC Glucose (mg/dL) Random Glucose 117 H Serum Osmolality Calcium 7.7 L Fingerstick Blood Sugar Results: 126 Review of Systems - Review of Systems Systems not reviewed;Unavailable: Intubated Critical Care Progress Note - Ventilator Checklist Head of Bed 30 Degrees: Yes Daily Sedation Vacation: No (not on sedation ) PUD Prophalyxis: Yes DVT Prophylaxis: Yes Oral Care with Chlorhexidine Gluconate {CHG}: Yes - Vent Settings MODE:: ASSIST CONTROL TIDAL VOLUME:: 450 RESP RATE:: 12 FIO2:: 60 PEEP:: 5 - Extremities/Vascular Does the Patient have a Central Venous Catheter?: Yes Insertion Site: Internal Jugular Vein Does the Patient need a Central Venous Catheter?: Yes Does the Patient have a Holloway Catheter?: Yes Does the Patient need a Holloway Catheter?: Yes Catheter Insertion Criteria: Need for accurate measurement of output in critically ill patient - Prophylaxis GI Prophylaxis GI: PPI - Prophylaxis DVT Prophylaxis DVT: Lovenox - Nutrition Nutrition: Nutrition Category Date Time Status NPO Diet [DIET] Diets 11/15/17 Lunch Active Assessment/Plan - Assessment and Plan (Free Text) Assessment: 63 y/o male, with unobtainable medical history, admitted to hospital for AMS of uncertain etiology, transferred to ICU due to worsening mental status, tachypnea , and desaturation, found to have 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 Plan: 1) Sepsis secondary to Aspiration Pneumonitis -remains febrile -improving left pleural effusion -WBC up to 13.5 -sputum: citrobacter diversus -c/w Zosyn as ordered -fever control with Acetominophen -repeat AM labs/CXR 2) Left Pleural Effusion/Infiltrate -improving -currently on IV Zosyn 3.375 Q6H -monitor, repeat CXR in AM 3) Altered Mental Status secondary to Acute Pontine infarct with extension to midbrain -Brain MRI: acute pontine infaract with extension to midbrain. Smaller cerebellar infarcts b/l -repeat Head CT: gross edematous changes affect the cerebellar hemispheres bilaterally, with compression of mid to lower brainstem edema extends to the b/l thalamus edema right is greater than left, further indication of expanding infarct -Intubated -c/w respiratory support -aspirin/plavix as per neuro -atorvastatin 40mg -amantadine -poor prognosis/Ethic committee review 4) Respiratory Failure secondary to AMS -2/2 to Acute CVA -intubated -continues to trigger vent 5) Anemia of Unknown Etiology -H/H: 7.7/23.7 -repeat CBC/coags -follow up 6) Weight Gain -strict monitoring of I/Os -trend body weight -Abd xray -lactulose 20mg -Lasix PRN 7) Prophylaxis -Head of bed elevation @ 30 degrees -Protonix 40mg IVP QD -Lovenox 40mg SC QD -SCDs 8) Code Status: -Full code -Overall extremely poor prognosis given recent repeat head CT showing extension of infarct and no change in clinical condition. <Talib Montejo - Last Filed: 12/01/17 23:07> CCU Subjective - Physician Review Subjective (Free Text): Attestation: Patient seen and examined at the bedside with Resident Dr. Chastity Garcia; and I agree with his outline of plans and management documented below as discussed on AM rounds reflecting my review of all applicable clinical data, and participation in the care of the patient throughout the day in ICU; today, December 01, 2017.
[2017-12-01 10:59] LABS: HEMOGLOBIN 7.6 g/dL (12.0-18.0); MEAN CELL VOLUME 92.9 fl (80.0-94.0); MEAN CORPUSCULAR HEMOGLOBIN 30.6 pg (27.0-31.0); RBC 2.49 Mil/uL (4.40-5.90); RED CELL DISTRIBUTION WIDTH 15.1 % (11.5-14.5); WHITE BLOOD COUNT 11.9 K/uL (4.8-10.8)
[2017-12-01 11:00] LABS: INR 1.3 (0.9-1.2); PARTIAL THROMBOPLASTIN TIME 34.4 Seconds (25.6-37.1); PROTHROMBIN TIME 14.1 Seconds (9.8-13.1)
--- NOTE | 2017-12-01 11:40 | RAD ---
HISTORY: constipation COMPARISON: Abdominal radiographs dated 11/22/2017 FINDINGS: BOWEL: Nonspecific bowel gas pattern. Prominent amount of ascending colonic stool. BONES: Unchanged. OTHER FINDINGS: Partially imaged enteric tube. Nonspecific tube/wire overlying the penile/rectal region. IMPRESSION: Prominent amount of ascending colonic stool. Nonspecific bowel gas pattern.
[2017-12-02] MEDS: Piperacillin/Tazobact 3.375 GM in Sodium Chloride 0.9% 100 ML IVPB SCH ×4 (03:30→21:30)
[2017-12-02 04:43] LABS: ABG ALLEN TEST YES; ARTERIAL BLOOD GAS HCO3 30.3 mmol/L (21-28); ARTERIAL BLOOD GAS HEMOGLOBIN 8.2 g/dL (11.7-17.4); ARTERIAL BLOOD GAS O2 CAPACITY 11.8 mL/dL (16-24); ARTERIAL BLOOD GAS O2 CONTENT 11.8 ML/dL (15-23); ARTERIAL BLOOD GAS O2 SAT 100.3 % (95-98); ARTERIAL BLOOD GAS PCO2 48 mm/Hg (35-45); ARTERIAL BLOOD GAS PH 7.43 (7.35-7.45); ARTERIAL BLOOD GAS PO2 181 mm/Hg (80-100); ARTERIAL BLOOD GAS TCO2 33.4 mmol/L (22-28)
[2017-12-02 05:34] LABS: BASO % 0.4 % (0.0-2.0); EOS % 0.3 % (0.0-4.0); HEMOGLOBIN 7.6 g/dL (12.0-18.0); LYMPH # 0.7 K/uL (1.0-4.3); LYMPH % 6.9 % (20.0-40.0); MEAN CELL VOLUME 93.4 fl (80.0-94.0); MEAN CORPUSCULAR HEMOGLOBIN 30.3 pg (27.0-31.0); MEAN CORPUSCULAR HGB CONC 32.4 g/dL (33.0-37.0); MEAN PLATELET VOLUME 9.5 fl (7.2-11.7); MONO # 0.5 K/uL (0.0-0.8); MONO % 5.2 % (0.0-10.0); NEUT # 8.8 K/uL (1.8-7.0); NEUT % 87.2 % (50.0-75.0); NRBC % 0.1 % (0.0-0.0); PLATELET COUNT 387 K/uL (130-400); RBC 2.51 Mil/uL (4.40-5.90); RED CELL DISTRIBUTION WIDTH 15.3 % (11.5-14.5); WHITE BLOOD COUNT 10.1 K/uL (4.8-10.8)
[2017-12-02 05:42] LABS: ALB/GLOB RATIO 0.7 (1.0-2.1); ALBUMIN 2.5 g/dL (3.5-5.0); ALT/SGPT 36 U/L (21-72); AST/SGOT 48 U/L (17-59); BLOOD UREA NITROGEN 15 mg/dl (9-20); CALCIUM 7.8 mg/dL (8.4-10.2); GFR AFRICAN-AMERICAN > 60; GFR NON-AFRICAN AMERICAN > 60
[2017-12-02 07:17] LABS: BANDS 2 % (0-2); BASOPHIL 1 % (0-2); LYMPHOCYTE 5 % (20-50); MONOCYTE 4 % (0-10); NEUTROPHIL 88 % (42-75); PLATELET ESTIMATE NORMAL (NORMAL); TOTAL CELLS COUNTED 100
[2017-12-02] MEDS ORDERED: Potassium Chloride 20 mEq/15 ml LIQ UD PO ONE (07:22)
--- NOTE | 2017-12-02 07:30 | CP.CCUPN ---
<WilliamstephanMich - Last Filed: 12/02/17 09:37> CCU Subjective - Physician Review Events Since Last Encounter (Free Text): pt seen and examined at bedside. No acute events overnight. Labs/imaging reviewed. Pupils fixed, 4mm. +Corneal reflex, negative gag, squirms to deep pain. No scrotal/pedal edema appreciated. CCU Objective - Vital Signs / Intake & Output Vital Signs (Last 4 hours): Vital Signs Temp Pulse Resp BP Pulse Ox 12/02/17 07:24 99.4 F 93 H 13 125/68 99 12/02/17 05:33 96 H 13 122/72 100 12/02/17 04:00 99.5 F 88 14 117/60 100 Intake and Output (Last 8hrs): Intake & Output 12/01/17 12/02/17 12/02/17 22:59 06:59 14:59 Intake Total 1050 940 120 Output Total 600 700 Balance 450 240 120 Weight 72.688 kg Intake: Intake, Piggyback 200 160 Tube Feeding 400 480 120 Free Water Flush 450 300 Output: Urine 600 700 2-way Urethral 600 700 - Physical Exam Head: Positive for: Atraumatic, Normocephalic. Negative for: Ecchymosis, Abrasion, Laceration Pupils: Positive for: Non-Reactive, Other (midline, +corneal reflex, approx 4mm ). Negative for: PERRL Extroacular Muscles: Negative for: EOMI, Gaze Palsy Conjunctiva: Positive for: Normal. Negative for: Injected, Icteric Ears: Positive for: Normal Mouth: Positive for: Dry Pharnyx: Positive for: Normal. Negative for: ERYTHEMA, EXUDATE, TONSILS ENLARGED Neck: Positive for: Normal Range of Motion, Trachea Midline, Other (R. IJ line) . Negative for: Meningeal Signs, JVD, Lymphadenopathy Respiratory/Chest: Positive for: Good Air Exchange. Negative for: Clear to Auscultation (gugrling sounds, distant breath sounds b/l), Respiratory Distress , Decreased Breath Sounds, Rales, Retracting, Rhonchi, Tachypneic, Tender to Palpation Cardiovascular: Positive for: Normal S1, S2, Peripheal Pulses Present (present but faint ), Tachycardic. Negative for: Regular Rate and Rhythm, Murmurs, Irregular Rhythm, Rub, Gallop, Muffled Abdomen: Positive for: Normal Bowel Sounds. Negative for: Tenderness, Distention, Peritoneal Signs Upper Extremity: Positive for: Normal Inspection, Capillary Refill < 2s. Negative for: Cyanosis, Edema Lower Extremity: Positive for: Normal Inspection, NORMAL PULSES, Cyanosis, Neurovascularly Intact, Capillary Refill < 2 s. Negative for: Edema, CALF TENDERNESS, Swelling, Erythema, Temperature Abnormalties Neurological: Positive for: Gait Normal, Other (intermittent decerebrate posturing, less frequent today. ). Negative for: GCS=15 (GCS: 4T), CN II-XII Intact, Speech Normal (unable to evaluate ), Motor Func Grossly Intact, Normal Sensory Function, Normal Cerebellar Funct, Norm Deep Tendon Reflexes (diminished ) Skin: Positive for: Dry, Cold (extremities ), Other (mottled ). Negative for: Normal Color (vitiligo?, chronic skin changes from weather exposure and recurrent friction/trauma ), Laceration Lymphatic: Negative for: Cervical Adenopathy Psychiatric: Positive for: Other (comatose). Negative for: Alert, Oriented x 3 , Normal Insight, Normal Concentration - Medications Active Medications: Active Medications Generic Name Dose Route Start Last Admin Trade Name Freq PRN Reason Stop Dose Admin Acetaminophen 650 mg 11/27/17 00:56 11/27/17 20:31 Tylenol 650mg/20.3ml Solution Ud PO 650 mg Q6 PRN Administration fever > 100.4 Aspirin 81 mg 11/19/17 09:00 12/01/17 09:29 Aspirin Chewable NG 81 mg DAILY ZIA Administration Atorvastatin Calcium 40 mg 11/17/17 22:00 12/01/17 21:00 Lipitor PO 40 mg HS ZIA Administration Bisacodyl 10 mg 11/29/17 17:14 11/30/17 08:[address] 10 mg DAILY PRN Administration Constipation Clopidogrel Bisulfate 75 mg 11/18/17 09:45 12/01/17 09:31 Plavix NG 75 mg DAILY ZIA Administration Enoxaparin Sodium 40 mg 11/28/17 09:00 12/01/17 09:30 Lovenox SC 40 mg DAILY ZIA Administration Protocol Folic Acid 1 mg 11/17/17 09:00 12/01/17 09:29 Folic Acid GT 1 mg DAILY ZIA Administration Furosemide 20 mg 12/02/17 11:08 Lasix IVP 12/02/17 11:09 ONCE ONE Furosemide 20 mg 12/02/17 17:00 Lasix IVP 12/02/17 17:01 ONCE ONE Piperacillin Sod/Tazobactam 100 mls @ 100 mls/hr 11/21/17 04:00 12/02/17 03: 30 Sod 3.375 gm/ Sodium Chloride IVPB 100 mls/hr Q6 ZIA Administration Protocol Famotidine 20 mg in 50 mls @ 100 mls/hr 11/29/17 09:00 12/01/17 20:41 Pepcid 20mg/50ml Premix IVPB 100 mls/hr Q12 ZIA Administration Thiamine HCl 100 mg 11/17/17 13:45 12/01/17 10:32 Vitamin B1 Tab NG 100 mg DAILY ZIA Administration - Patient Studies Lab Studies: Lab Studies 12/02/17 12/02/17 12/02/17 Range/Units 04:20 04:20 04:20 WBC 10.1 (4.8-10.8) K/uL RBC 2.51 L (4.40-5.90) Mil/uL Hgb 7.6 L (12.0-18.0) g/dL Hct 23.4 L (35.0-51.0) % MCV 93.4 (80.0-94.0) fl MCH 30.3 (27.0-31.0) pg MCHC 32.4 L (33.0-37.0) g/dL RDW 15.3 H (11.5-14.5) % Plt Count 387 (130-400) K/uL MPV 9.5 (7.2-11.7) fl Neut % (Auto) 87.2 H (50.0-75.0) % Lymph % (Auto) 6.9 L (20.0-40.0) % Hudson % (Auto) 5.2 (0.0-10.0) % Eos % (Auto) 0.3 (0.0-4.0) % Baso % (Auto) 0.4 (0.0-2.0) % Neut # (Auto) 8.8 H (1.8-7.0) K/uL Lymph # (Auto) 0.7 L (1.0-4.3) K/uL Hudson # (Auto) 0.5 (0.0-0.8) K/uL Eos # (Auto) 0.0 (0.0-0.7) K/uL Baso # (Auto) 0.0 (0.0-0.2) K/uL Neutrophils % (Manual) 88 H (42-75) % Band Neutrophils % 2 (0-2) % Lymphocytes % (Manual) 5 L (20-50) % Monocytes % (Manual) 4 (0-10) % Basophils % (Manual) 1 (0-2) % Platelet Estimate Normal (NORMAL) PT (9.8-13.1) Seconds INR (0.9-1.2) APTT (25.6-37.1) Seconds pCO2 (35-45) mm/Hg pO2 (80-100) mm/Hg HCO3 (21-28) mmol/L ABG pH (7.35-7.45) ABG Total CO2 (22-28) mmol/L ABG O2 Saturation (95-98) % ABG O2 Content (15-23) ML/dL ABG Base Excess (-2.0-3.0) mmol/L ABG Hemoglobin (11.7-17.4) g/dL ABG Carboxyhemoglobin (0.5-1.5) % POC ABG HHb (Measured) (0.0-5.0) % ABG Methemoglobin (0.0-3.0) % ABG O2 Capacity (16-24) mL/dL Roberto Test A-a O2 Difference mm/Hg Hgb O2 Saturation (95.0-98.0) % Vent Mode Mechanical Rate FiO2 % Tidal Volume PEEP Sodium 144 (132-148) mmol/l Potassium 3.4 L (3.6-5.0) MMOL/L Chloride 105 (98-107) mmol/L Carbon Dioxide 32 H (22-30) mmol/L Anion Gap 10 (10-20) BUN 15 (9-20) mg/dl Creatinine 0.5 L (0.8-1.5) mg/dl Est GFR ( Amer) > 60 Est GFR (Non-Af Amer) > 60 POC Glucose (mg/dL) 109 (65-110) mg/dL Random Glucose 90 (75-110) mg/dL Calcium 7.8 L (8.4-10.2) mg/dL Total Bilirubin 0.5 (0.2-1.3) mg/dl AST 48 (17-59) U/L ALT 36 (21-72) U/L Alkaline Phosphatase 79 (38-126) U/L Total Protein 6.0 L (6.3-8.2) G/DL Albumin 2.5 L (3.5-5.0) g/dL Globulin 3.5 (2.2-3.9) gm/dL Albumin/Globulin Ratio 0.7 L (1.0-2.1) 12/02/17 12/01/17 12/01/17 Range/Units 04:00 20:31 16:17 WBC (4.8-10.8) K/uL RBC (4.40-5.90) Mil/uL Hgb (12.0-18.0) g/dL Hct (35.0-51.0) % MCV (80.0-94.0) fl MCH (27.0-31.0) pg MCHC (33.0-37.0) g/dL RDW (11.5-14.5) % Plt Count (130-400) K/uL MPV (7.2-11.7) fl Neut % (Auto) (50.0-75.0) % Lymph % (Auto) (20.0-40.0) % Hudson % (Auto) (0.0-10.0) % Eos % (Auto) (0.0-4.0) % Baso % (Auto) (0.0-2.0) % Neut # (Auto) (1.8-7.0) K/uL Lymph # (Auto) (1.0-4.3) K/uL Hudson # (Auto) (0.0-0.8) K/uL Eos # (Auto) (0.0-0.7) K/uL Baso # (Auto) (0.0-0.2) K/uL Neutrophils % (Manual) (42-75) % Band Neutrophils % (0-2) % Lymphocytes % (Manual) (20-50) % Monocytes % (Manual) (0-10) % Basophils % (Manual) (0-2) % Platelet Estimate (NORMAL) PT (9.8-13.1) Seconds INR (0.9-1.2) APTT (25.6-37.1) Seconds pCO2 48 H (35-45) mm/Hg pO2 181 H (80-100) mm/Hg HCO3 30.3 H (21-28) mmol/L ABG pH 7.43 (7.35-7.45) ABG Total CO2 33.4 H (22-28) mmol/L ABG O2 Saturation 100.3 H (95-98) % ABG O2 Content 11.8 L (15-23) ML/dL ABG Base Excess 6.8 H (-2.0-3.0) mmol/L ABG Hemoglobin 8.2 L (11.7-17.4) g/dL ABG Carboxyhemoglobin 1.2 (0.5-1.5) % POC ABG HHb (Measured) -0.3 L (0.0-5.0) % ABG Methemoglobin 0.9 (0.0-3.0) % ABG O2 Capacity 11.8 L (16-24) mL/dL Roberto Test Yes A-a O2 Difference 187.0 mm/Hg Hgb O2 Saturation 98.2 H (95.0-98.0) % Vent Mode A/c Mechanical Rate 12 FiO2 60.0 % Tidal Volume 450 PEEP 5 Sodium (132-148) mmol/l Potassium (3.6-5.0) MMOL/L Chloride (98-107) mmol/L Carbon Dioxide (22-30) mmol/L Anion Gap (10-20) BUN (9-20) mg/dl Creatinine (0.8-1.5) mg/dl Est GFR ( Amer) Est GFR (Non-Af Amer) POC Glucose (mg/dL) 132 H 132 H (65-110) mg/dL Random Glucose (75-110) mg/dL Calcium (8.4-10.2) mg/dL Total Bilirubin (0.2-1.3) mg/dl AST (17-59) U/L ALT (21-72) U/L Alkaline Phosphatase (38-126) U/L Total Protein (6.3-8.2) G/DL Albumin (3.5-5.0) g/dL Globulin (2.2-3.9) gm/dL Albumin/Globulin Ratio (1.0-2.1) 05/24/18 05/24/18 05/24/18 Range/Units 11:10 09:44 09:44 WBC 11.9 H (4.8-10.8) K/uL RBC 2.49 L (4.40-5.90) Mil/uL Hgb 7.6 L (12.0-18.0) g/dL Hct 23.1 L (35.0-51.0) % MCV 92.9 (80.0-94.0) fl MCH 30.6 (27.0-31.0) pg MCHC 33.0 (33.0-37.0) g/dL RDW 15.1 H (11.5-14.5) % Plt Count 369 (130-400) K/uL MPV (7.2-11.7) fl Neut % (Auto) (50.0-75.0) % Lymph % (Auto) (20.0-40.0) % Hudson % (Auto) (0.0-10.0) % Eos % (Auto) (0.0-4.0) % Baso % (Auto) (0.0-2.0) % Neut # (Auto) (1.8-7.0) K/uL Lymph # (Auto) (1.0-4.3) K/uL Hudson # (Auto) (0.0-0.8) K/uL Eos # (Auto) (0.0-0.7) K/uL Baso # (Auto) (0.0-0.2) K/uL Neutrophils % (Manual) (42-75) % Band Neutrophils % (0-2) % Lymphocytes % (Manual) (20-50) % Monocytes % (Manual) (0-10) % Basophils % (Manual) (0-2) % Platelet Estimate (NORMAL) PT 14.1 H (9.8-13.1) Seconds INR 1.3 H (0.9-1.2) APTT 34.4 (25.6-37.1) Seconds pCO2 (35-45) mm/Hg pO2 (80-100) mm/Hg HCO3 (21-28) mmol/L ABG pH (7.35-7.45) ABG Total CO2 (22-28) mmol/L ABG O2 Saturation (95-98) % ABG O2 Content (15-23) ML/dL ABG Base Excess (-2.0-3.0) mmol/L ABG Hemoglobin (11.7-17.4) g/dL ABG Carboxyhemoglobin (0.5-1.5) % POC ABG HHb (Measured) (0.0-5.0) % ABG Methemoglobin (0.0-3.0) % ABG O2 Capacity (16-24) mL/dL Roberto Test A-a O2 Difference mm/Hg Hgb O2 Saturation (95.0-98.0) % Vent Mode Mechanical Rate FiO2 % Tidal Volume PEEP Sodium (132-148) mmol/l Potassium (3.6-5.0) MMOL/L Chloride (98-107) mmol/L Carbon Dioxide (22-30) mmol/L Anion Gap (10-20) BUN (9-20) mg/dl Creatinine (0.8-1.5) mg/dl Est GFR ( Amer) Est GFR (Non-Af Amer) POC Glucose (mg/dL) 139 H (65-110) mg/dL Random Glucose (75-110) mg/dL Calcium (8.4-10.2) mg/dL Total Bilirubin (0.2-1.3) mg/dl AST (17-59) U/L ALT (21-72) U/L Alkaline Phosphatase (38-126) U/L Total Protein (6.3-8.2) G/DL Albumin (3.5-5.0) g/dL Globulin (2.2-3.9) gm/dL Albumin/Globulin Ratio (1.0-2.1) Laboratory Results - last 24 hr 12/01/17 12/01/17 12/01/17 09:44 09:44 11:10 WBC 11.9 H RBC 2.49 L Hgb 7.6 L Hct 23.1 L MCV 92.9 MCH 30.6 MCHC 33.0 RDW 15.1 H Plt Count 369 MPV Neut % (Auto) Lymph % (Auto) Hudson % (Auto) Eos % (Auto) Baso % (Auto) Neut # (Auto) Lymph # (Auto) Hudson # (Auto) Eos # (Auto) Baso # (Auto) Neutrophils % (Manual) Band Neutrophils % Lymphocytes % (Manual) Monocytes % (Manual) Basophils % (Manual) Platelet Estimate PT 14.1 H INR 1.3 H APTT 34.4 pCO2 pO2 HCO3 ABG pH ABG Total CO2 ABG O2 Saturation ABG O2 Content ABG Base Excess ABG Hemoglobin ABG Carboxyhemoglobin POC ABG HHb (Measured) ABG Methemoglobin ABG O2 Capacity Roberto Test A-a O2 Difference Hgb O2 Saturation Vent Mode Mechanical Rate FiO2 Tidal Volume PEEP Sodium Potassium Chloride Carbon Dioxide Anion Gap BUN Creatinine Est GFR ( Amer) Est GFR (Non-Af Amer) POC Glucose (mg/dL) 139 H Random Glucose Calcium Total Bilirubin AST ALT Alkaline Phosphatase Total Protein Albumin Globulin Albumin/Globulin Ratio 12/01/17 12/01/17 12/02/17 16:17 20:31 04:00 WBC RBC Hgb Hct MCV MCH MCHC RDW Plt Count MPV Neut % (Auto) Lymph % (Auto) Hudson % (Auto) Eos % (Auto) Baso % (Auto) Neut # (Auto) Lymph # (Auto) Hudson # (Auto) Eos # (Auto) Baso # (Auto) Neutrophils % (Manual) Band Neutrophils % Lymphocytes % (Manual) Monocytes % (Manual) Basophils % (Manual) Platelet Estimate PT INR APTT pCO2 48 H pO2 181 H HCO3 30.3 H ABG pH 7.43 ABG Total CO2 33.4 H ABG O2 Saturation 100.3 H ABG O2 Content 11.8 L ABG Base Excess 6.8 H ABG Hemoglobin 8.2 L ABG Carboxyhemoglobin 1.2 POC ABG HHb (Measured) -0.3 L ABG Methemoglobin 0.9 ABG O2 Capacity 11.8 L Roberto Test Yes A-a O2 Difference 187.0 Hgb O2 Saturation 98.2 H Vent Mode A/c Mechanical Rate 12 FiO2 60.0 Tidal Volume 450 PEEP 5 Sodium Potassium Chloride Carbon Dioxide Anion Gap BUN Creatinine Est GFR ( Amer) Est GFR (Non-Af Amer) POC Glucose (mg/dL) 132 H 132 H Random Glucose Calcium Total Bilirubin AST ALT Alkaline Phosphatase Total Protein Albumin Globulin Albumin/Globulin Ratio 12/02/17 12/02/17 12/02/17 04:20 04:20 04:20 WBC 10.1 RBC 2.51 L Hgb 7.6 L Hct 23.4 L MCV 93.4 MCH 30.3 MCHC 32.4 L RDW 15.3 H Plt Count 387 MPV 9.5 Neut % (Auto) 87.2 H Lymph % (Auto) 6.9 L Hudson % (Auto) 5.2 Eos % (Auto) 0.3 Baso % (Auto) 0.4 Neut # (Auto) 8.8 H Lymph # (Auto) 0.7 L Hudson # (Auto) 0.5 Eos # (Auto) 0.0 Baso # (Auto) 0.0 Neutrophils % (Manual) 88 H Band Neutrophils % 2 Lymphocytes % (Manual) 5 L Monocytes % (Manual) 4 Basophils % (Manual) 1 Platelet Estimate Normal PT INR APTT pCO2 pO2 HCO3 ABG pH ABG Total CO2 ABG O2 Saturation ABG O2 Content ABG Base Excess ABG Hemoglobin ABG Carboxyhemoglobin POC ABG HHb (Measured) ABG Methemoglobin ABG O2 Capacity Roberto Test A-a O2 Difference Hgb O2 Saturation Vent Mode Mechanical Rate FiO2 Tidal Volume PEEP Sodium 144 Potassium 3.4 L Chloride 105 Carbon Dioxide 32 H Anion Gap 10 BUN 15 Creatinine 0.5 L Est GFR ( Amer) > 60 Est GFR (Non-Af Amer) > 60 POC Glucose (mg/dL) 109 Random Glucose 90 Calcium 7.8 L Total Bilirubin 0.5 AST 48 ALT 36 Alkaline Phosphatase 79 Total Protein 6.0 L Albumin 2.5 L Globulin 3.5 Albumin/Globulin Ratio 0.7 L Fingerstick Blood Sugar Results: 109 Review of Systems - Review of Systems Systems not reviewed;Unavailable: Intubated Critical Care Progress Note - Ventilator Checklist Head of Bed 30 Degrees: Yes Daily Sedation Vacation: No Daily Assessment of Readiness to Wean: No Daily Spontaneous Breathing Trial: No PUD Prophalyxis: Yes DVT Prophylaxis: Yes Oral Care with Chlorhexidine Gluconate {CHG}: Yes - Vent Settings MODE:: ASSIST CONTROL TIDAL VOLUME:: 450 RESP RATE:: 12 FIO2:: 60 PEEP:: 5 - Extremities/Vascular Does the Patient have a Central Venous Catheter?: Yes Insertion Site: Internal Jugular Vein Does the Patient need a Central Venous Catheter?: Yes Does the Patient have a Holloway Catheter?: Yes Does the Patient need a Holloway Catheter?: Yes Catheter Insertion Criteria: Need for accurate measurement of output in critically ill patient - Prophylaxis GI Prophylaxis GI: PPI - Prophylaxis DVT Prophylaxis DVT: Lovenox - Nutrition Nutrition: Nutrition Category Date Time Status NPO Diet [DIET] Diets 11/15/17 Lunch Active Assessment/Plan - Assessment and Plan (Free Text) Assessment: 63 y/o male, with unobtainable medical history, admitted to hospital for AMS of uncertain etiology, transferred to ICU due to worsening mental status, tachypnea , and desaturation, found to have 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 Plan: 1) Sepsis secondary to Aspiration Pneumonitis -afebrile now -CXR on 12/02:no significant change in pulmonary vascular congestion and small left pleural effusion. -WBC: 10.1 -sputum: citrobacter diversus -repeat sputum cultures: pending -c/w Zosyn as ordered -fever control with Acetominophen -repeat AM labs/CXR 2) Left Pleural Effusion/Infiltrate -stable -currently on IV Zosyn 3.375 Q6H -monitor, repeat CXR in AM 3) Altered Mental Status secondary to Acute Pontine infarct with extension to midbrain -Brain MRI: acute pontine infaract with extension to midbrain. Smaller cerebellar infarcts b/l -repeat Head CT: gross edematous changes affect the cerebellar hemispheres bilaterally, with compression of mid to lower brainstem edema extends to the b/l thalamus edema right is greater than left, further indication of expanding infarct -Intubated -c/w respiratory support -aspirin/plavix as per neuro -atorvastatin 40mg -amantadine -poor prognosis/Ethic committee review 4) Respiratory Failure secondary to AMS -2/2 to Acute CVA -intubated -continues to trigger vent -Rate 12, Vt 450, FIO2 40.0, PEEP 5 5) Anemia of Unknown Etiology -H/H: 7.6/23.4 -stable -repeat CBC/coags -follow up 6) Weight Gain -strict monitoring of I/Os -trend body weight -Abd xray: constipation in ascending -lactulose 20mg -Lasix 40mg 7) Prophylaxis -Head of bed elevation @ 30 degrees -Protonix 40mg IVP QD -Lovenox 40mg SC QD -SCDs 8) Code Status: -DNR -Overall extremely poor prognosis given recent repeat head CT showing extension of infarct and no change in clinical condition. <Talib Montejo - Last Filed: 12/02/17 18:49> CCU Subjective - Physician Review Events Since Last Encounter (Free Text): Attestation: Patient seen and examined at the bedside with Resident Dr. Chastity Garcia; and I agree with his outline of plans and management documented below as discussed on AM rounds reflecting my review of all applicable clinical data, and participation in the care of the patient throughout the day in ICU; today, December 02, 2017. Present major diagnosis includes multiple acute brain strokes with involvement of the bilateral thalamic, cerebellar, medulla and keshia areas. Given the extensive nature of the infarcted areas of the brain, and the refractoriness of his response to treatment; this all portends to a very poor and dismal prognosis. Agree with DNR status given the futility of aggressive interventions and resuscitation that would provide no more overall benefit, nor improve his chances of survival. CCU Objective - Medications Active Medications: Active Medications Generic Name Dose Route Start Last Admin Trade Name Freq PRN Reason Stop Dose Admin Acetaminophen 650 mg 11/27/17 00:56 11/27/17 20:31 Tylenol 650mg/20.3ml Solution Ud PO 650 mg Q6 PRN Administration fever > 100.4 Aspirin 81 mg 11/19/17 09:00 12/02/17 08:56 Aspirin Chewable NG 81 mg DAILY ZIA Administration Atorvastatin Calcium 40 mg 11/17/17 22:00 12/01/17 21:00 Lipitor PO 40 mg HS ZIA Administration Clopidogrel Bisulfate 75 mg 11/18/17 09:45 12/02/17 08:56 Plavix NG 75 mg DAILY ZIA Administration Enoxaparin Sodium 40 mg 11/28/17 09:00 12/02/17 08:56 Lovenox SC 40 mg DAILY ZIA Administration Protocol Famotidine 40 mg 12/02/17 09:00 12/02/17 08:58 Pepcid PO 40 mg DAILY ZIA Administration Folic Acid 1 mg 11/17/17 09:00 12/02/17 08:56 Folic Acid GT 1 mg DAILY ZIA Administration Piperacillin Sod/Tazobactam 100 mls @ 100 mls/hr 11/21/17 04:00 12/02/17 16: 35 Sod 3.375 gm/ Sodium Chloride IVPB 100 mls/hr Q6 ZIA Administration Protocol Thiamine HCl 100 mg 11/17/17 13:45 12/02/17 08:57 Vitamin B1 Tab NG 100 mg DAILY ZIA Administration - Patient Studies Lab Studies: Lab Studies 12/02/17 12/02/17 12/02/17 Range/Units 16:37 11:08 04:20 WBC (4.8-10.8) K/uL RBC (4.40-5.90) Mil/uL Hgb (12.0-18.0) g/dL Hct (35.0-51.0) % MCV (80.0-94.0) fl MCH (27.0-31.0) pg MCHC (33.0-37.0) g/dL RDW (11.5-14.5) % Plt Count (130-400) K/uL MPV (7.2-11.7) fl Neut % (Auto) (50.0-75.0) % Lymph % (Auto) (20.0-40.0) % Hudson % (Auto) (0.0-10.0) % Eos % (Auto) (0.0-4.0) % Baso % (Auto) (0.0-2.0) % Neut # (Auto) (1.8-7.0) K/uL Lymph # (Auto) (1.0-4.3) K/uL Hudson # (Auto) (0.0-0.8) K/uL Eos # (Auto) (0.0-0.7) K/uL Baso # (Auto) (0.0-0.2) K/uL Neutrophils % (Manual) (42-75) % Band Neutrophils % (0-2) % Lymphocytes % (Manual) (20-50) % Monocytes % (Manual) (0-10) % Basophils % (Manual) (0-2) % Platelet Estimate (NORMAL) pCO2 (35-45) mm/Hg pO2 (80-100) mm/Hg HCO3 (21-28) mmol/L ABG pH (7.35-7.45) ABG Total CO2 (22-28) mmol/L ABG O2 Saturation (95-98) % ABG O2 Content (15-23) ML/dL ABG Base Excess (-2.0-3.0) mmol/L ABG Hemoglobin (11.7-17.4) g/dL ABG Carboxyhemoglobin (0.5-1.5) % POC ABG HHb (Measured) (0.0-5.0) % ABG Methemoglobin (0.0-3.0) % ABG O2 Capacity (16-24) mL/dL Roberto Test A-a O2 Difference mm/Hg Hgb O2 Saturation (95.0-98.0) % Vent Mode Mechanical Rate FiO2 % Tidal Volume PEEP Sodium (132-148) mmol/l Potassium (3.6-5.0) MMOL/L Chloride (98-107) mmol/L Carbon Dioxide (22-30) mmol/L Anion Gap (10-20) BUN (9-20) mg/dl Creatinine (0.8-1.5) mg/dl Est GFR ( Amer) Est GFR (Non-Af Amer) POC Glucose (mg/dL) 171 H 158 H 109 (65-110) mg/dL Random Glucose (75-110) mg/dL Calcium (8.4-10.2) mg/dL Total Bilirubin (0.2-1.3) mg/dl AST (17-59) U/L ALT (21-72) U/L Alkaline Phosphatase (38-126) U/L Total Protein (6.3-8.2) G/DL Albumin (3.5-5.0) g/dL Globulin (2.2-3.9) gm/dL Albumin/Globulin Ratio (1.0-2.1) 12/02/17 12/02/17 12/02/17 Range/Units 04:20 04:20 04:00 WBC 10.1 (4.8-10.8) K/uL RBC 2.51 L (4.40-5.90) Mil/uL Hgb 7.6 L (12.0-18.0) g/dL Hct 23.4 L (35.0-51.0) % MCV 93.4 (80.0-94.0) fl MCH 30.3 (27.0-31.0) pg MCHC 32.4 L (33.0-37.0) g/dL RDW 15.3 H (11.5-14.5) % Plt Count 387 (130-400) K/uL MPV 9.5 (7.2-11.7) fl Neut % (Auto) 87.2 H (50.0-75.0) % Lymph % (Auto) 6.9 L (20.0-40.0) % Hudson % (Auto) 5.2 (0.0-10.0) % Eos % (Auto) 0.3 (0.0-4.0) % Baso % (Auto) 0.4 (0.0-2.0) % Neut # (Auto) 8.8 H (1.8-7.0) K/uL Lymph # (Auto) 0.7 L (1.0-4.3) K/uL Hudson # (Auto) 0.5 (0.0-0.8) K/uL Eos # (Auto) 0.0 (0.0-0.7) K/uL Baso # (Auto) 0.0 (0.0-0.2) K/uL Neutrophils % (Manual) 88 H (42-75) % Band Neutrophils % 2 (0-2) % Lymphocytes % (Manual) 5 L (20-50) % Monocytes % (Manual) 4 (0-10) % Basophils % (Manual) 1 (0-2) % Platelet Estimate Normal (NORMAL) pCO2 48 H (35-45) mm/Hg pO2 181 H (80-100) mm/Hg HCO3 30.3 H (21-28) mmol/L ABG pH 7.43 (7.35-7.45) ABG Total CO2 33.4 H (22-28) mmol/L ABG O2 Saturation 100.3 H (95-98) % ABG O2 Content 11.8 L (15-23) ML/dL ABG Base Excess 6.8 H (-2.0-3.0) mmol/L ABG Hemoglobin 8.2 L (11.7-17.4) g/dL ABG Carboxyhemoglobin 1.2 (0.5-1.5) % POC ABG HHb (Measured) -0.3 L (0.0-5.0) % ABG Methemoglobin 0.9 (0.0-3.0) % ABG O2 Capacity 11.8 L (16-24) mL/dL Roberto Test Yes A-a O2 Difference 187.0 mm/Hg Hgb O2 Saturation 98.2 H (95.0-98.0) % Vent Mode A/c Mechanical Rate 12 FiO2 60.0 % Tidal Volume 450 PEEP 5 Sodium 144 (132-148) mmol/l Potassium 3.4 L (3.6-5.0) MMOL/L Chloride 105 (98-107) mmol/L Carbon Dioxide 32 H (22-30) mmol/L Anion Gap 10 (10-20) BUN 15 (9-20) mg/dl Creatinine 0.5 L (0.8-1.5) mg/dl Est GFR ( Amer) > 60 Est GFR (Non-Af Amer) > 60 POC Glucose (mg/dL) (65-110) mg/dL Random Glucose 90 (75-110) mg/dL Calcium 7.8 L (8.4-10.2) mg/dL Total Bilirubin 0.5 (0.2-1.3) mg/dl AST 48 (17-59) U/L ALT 36 (21-72) U/L Alkaline Phosphatase 79 (38-126) U/L Total Protein 6.0 L (6.3-8.2) G/DL Albumin 2.5 L (3.5-5.0) g/dL Globulin 3.5 (2.2-3.9) gm/dL Albumin/Globulin Ratio 0.7 L (1.0-2.1) 05/24/18 Range/Units 20:31 WBC (4.8-10.8) K/uL RBC (4.40-5.90) Mil/uL Hgb (12.0-18.0) g/dL Hct (35.0-51.0) % MCV (80.0-94.0) fl MCH (27.0-31.0) pg MCHC (33.0-37.0) g/dL RDW (11.5-14.5) % Plt Count (130-400) K/uL MPV (7.2-11.7) fl Neut % (Auto) (50.0-75.0) % Lymph % (Auto) (20.0-40.0) % Hudson % (Auto) (0.0-10.0) % Eos % (Auto) (0.0-4.0) % Baso % (Auto) (0.0-2.0) % Neut # (Auto) (1.8-7.0) K/uL Lymph # (Auto) (1.0-4.3) K/uL Hudson # (Auto) (0.0-0.8) K/uL Eos # (Auto) (0.0-0.7) K/uL Baso # (Auto) (0.0-0.2) K/uL Neutrophils % (Manual) (42-75) % Band Neutrophils % (0-2) % Lymphocytes % (Manual) (20-50) % Monocytes % (Manual) (0-10) % Basophils % (Manual) (0-2) % Platelet Estimate (NORMAL) pCO2 (35-45) mm/Hg pO2 (80-100) mm/Hg HCO3 (21-28) mmol/L ABG pH (7.35-7.45) ABG Total CO2 (22-28) mmol/L ABG O2 Saturation (95-98) % ABG O2 Content (15-23) ML/dL ABG Base Excess (-2.0-3.0) mmol/L ABG Hemoglobin (11.7-17.4) g/dL ABG Carboxyhemoglobin (0.5-1.5) % POC ABG HHb (Measured) (0.0-5.0) % ABG Methemoglobin (0.0-3.0) % ABG O2 Capacity (16-24) mL/dL Roberto Test A-a O2 Difference mm/Hg Hgb O2 Saturation (95.0-98.0) % Vent Mode Mechanical Rate FiO2 % Tidal Volume PEEP Sodium (132-148) mmol/l Potassium (3.6-5.0) MMOL/L Chloride (98-107) mmol/L Carbon Dioxide (22-30) mmol/L Anion Gap (10-20) BUN (9-20) mg/dl Creatinine (0.8-1.5) mg/dl Est GFR ( Amer) Est GFR (Non-Af Amer) POC Glucose (mg/dL) 132 H (65-110) mg/dL Random Glucose (75-110) mg/dL Calcium (8.4-10.2) mg/dL Total Bilirubin (0.2-1.3) mg/dl AST (17-59) U/L ALT (21-72) U/L Alkaline Phosphatase (38-126) U/L Total Protein (6.3-8.2) G/DL Albumin (3.5-5.0) g/dL Globulin (2.2-3.9) gm/dL Albumin/Globulin Ratio (1.0-2.1) Laboratory Results - last 24 hr 12/01/17 12/02/17 12/02/17 20:31 04:00 04:20 WBC 10.1 RBC 2.51 L Hgb 7.6 L Hct 23.4 L MCV 93.4 MCH 30.3 MCHC 32.4 L RDW 15.3 H Plt Count 387 MPV 9.5 Neut % (Auto) 87.2 H Lymph % (Auto) 6.9 L Hudson % (Auto) 5.2 Eos % (Auto) 0.3 Baso % (Auto) 0.4 Neut # (Auto) 8.8 H Lymph # (Auto) 0.7 L Hudson # (Auto) 0.5 Eos # (Auto) 0.0 Baso # (Auto) 0.0 Neutrophils % (Manual) 88 H Band Neutrophils % 2 Lymphocytes % (Manual) 5 L Monocytes % (Manual) 4 Basophils % (Manual) 1 Platelet Estimate Normal pCO2 48 H pO2 181 H HCO3 30.3 H ABG pH 7.43 ABG Total CO2 33.4 H ABG O2 Saturation 100.3 H ABG O2 Content 11.8 L ABG Base Excess 6.8 H ABG Hemoglobin 8.2 L ABG Carboxyhemoglobin 1.2 POC ABG HHb (Measured) -0.3 L ABG Methemoglobin 0.9 ABG O2 Capacity 11.8 L Roberto Test Yes A-a O2 Difference 187.0 Hgb O2 Saturation 98.2 H Vent Mode A/c Mechanical Rate 12 FiO2 60.0 Tidal Volume 450 PEEP 5 Sodium Potassium Chloride Carbon Dioxide Anion Gap BUN Creatinine Est GFR ( Amer) Est GFR (Non-Af Amer) POC Glucose (mg/dL) 132 H Random Glucose Calcium Total Bilirubin AST ALT Alkaline Phosphatase Total Protein Albumin Globulin Albumin/Globulin Ratio 12/02/17 12/02/17 12/02/17 04:20 04:20 11:08 WBC RBC Hgb Hct MCV MCH MCHC RDW Plt Count MPV Neut % (Auto) Lymph % (Auto) Hudson % (Auto) Eos % (Auto) Baso % (Auto) Neut # (Auto) Lymph # (Auto) Hudson # (Auto) Eos # (Auto) Baso # (Auto) Neutrophils % (Manual) Band Neutrophils % Lymphocytes % (Manual) Monocytes % (Manual) Basophils % (Manual) Platelet Estimate pCO2 pO2 HCO3 ABG pH ABG Total CO2 ABG O2 Saturation ABG O2 Content ABG Base Excess ABG Hemoglobin ABG Carboxyhemoglobin POC ABG HHb (Measured) ABG Methemoglobin ABG O2 Capacity Roberto Test A-a O2 Difference Hgb O2 Saturation Vent Mode Mechanical Rate FiO2 Tidal Volume PEEP Sodium 144 Potassium 3.4 L Chloride 105 Carbon Dioxide 32 H Anion Gap 10 BUN 15 Creatinine 0.5 L Est GFR ( Amer) > 60 Est GFR (Non-Af Amer) > 60 POC Glucose (mg/dL) 109 158 H Random Glucose 90 Calcium 7.8 L Total Bilirubin 0.5 AST 48 ALT 36 Alkaline Phosphatase 79 Total Protein 6.0 L Albumin 2.5 L Globulin 3.5 Albumin/Globulin Ratio 0.7 L 12/02/17 16:37 WBC RBC Hgb Hct MCV MCH MCHC RDW Plt Count MPV Neut % (Auto) Lymph % (Auto) Hudson % (Auto) Eos % (Auto) Baso % (Auto) Neut # (Auto) Lymph # (Auto) Hudson # (Auto) Eos # (Auto) Baso # (Auto) Neutrophils % (Manual) Band Neutrophils % Lymphocytes % (Manual) Monocytes % (Manual) Basophils % (Manual) Platelet Estimate pCO2 pO2 HCO3 ABG pH ABG Total CO2 ABG O2 Saturation ABG O2 Content ABG Base Excess ABG Hemoglobin ABG Carboxyhemoglobin POC ABG HHb (Measured) ABG Methemoglobin ABG O2 Capacity Roberto Test A-a O2 Difference Hgb O2 Saturation Vent Mode Mechanical Rate FiO2 Tidal Volume PEEP Sodium Potassium Chloride Carbon Dioxide Anion Gap BUN Creatinine Est GFR ( Amer) Est GFR (Non-Af Amer) POC Glucose (mg/dL) 171 H Random Glucose Calcium Total Bilirubin AST ALT Alkaline Phosphatase Total Protein Albumin Globulin Albumin/Globulin Ratio
[2017-12-02] MEDS: Enoxaparin 40 mg Syringe SC SCH (08:56)
--- NOTE | 2017-12-02 08:57 | CP.PCM.PN ---
Subjective - Date & Time of Evaluation Date of Evaluation: 12/02/17 Time of Evaluation: 08:45 - Subjective Subjective: Pt remains intubated , on [facility] Vent - PRVC/AC 06/4500/5/40% Responds only to deep pain. No Pupillary reflex, no gag reflex Extremities edematous Tolerating tube feeding at 60ml/hr Good urine output Pt's prognosis is poor. Had long discussion with Chief Supply Chain Officer Dr Montejo , given pt's poor prognosis , we both agreed that in case patient goes into cardiac arrest , doing CPR would be an exercise of futility. We will change patient Code Status to DNR. Objective - Vital Signs/Intake and Output Vital Signs (last 24 hours): Temp Pulse Resp BP Pulse Ox 99.4 F 93 H 13 125/68 99 12/02/17 07:24 12/02/17 07:24 12/02/17 07:24 12/02/17 07:37 12/02/17 07:24 Intake and Output: 12/02/17 12/02/17 06:59 18:59 Intake Total 1370 120 Output Total 700 Balance 670 120 - Medications Medications: Current Medications Acetaminophen (Tylenol 650mg/20.3ml Solution Ud) 650 mg PO Q6 PRN PRN Reason: fever > 100.4 Last Admin: 11/27/17 20:31 Dose: 650 mg Aspirin (Aspirin Chewable) 81 mg NG DAILY [facility] Last Admin: 12/01/17 09:29 Dose: 81 mg Atorvastatin Calcium (Lipitor) 40 mg PO HS [facility] Last Admin: 12/01/17 21:00 Dose: 40 mg Clopidogrel Bisulfate (Plavix) 75 mg NG DAILY [facility] Last Admin: 12/01/17 09:31 Dose: 75 mg Enoxaparin Sodium (Lovenox) 40 mg SC DAILY [facility] PRN Reason: Protocol Last Admin: 12/01/17 09:30 Dose: 40 mg Famotidine (Pepcid) 40 mg PO DAILY [facility] Folic Acid (Folic Acid) 1 mg GT DAILY [facility] Last Admin: 12/01/17 09:29 Dose: 1 mg Piperacillin Sod/Tazobactam (Sod 3.375 gm/ Sodium Chloride) 100 mls @ 100 mls/ hr IVPB Q6 [facility] PRN Reason: Protocol Last Admin: 12/02/17 03:30 Dose: 100 mls/hr Thiamine HCl (Vitamin B1 Tab) 100 mg NG DAILY [facility] Last Admin: 12/01/17 10:32 Dose: 100 mg - Labs Labs: 12/02/17 04:20 12/02/17 04:20 PT 14.1 Seconds (9.8-13.1) H 12/01/17 09:44 INR 1.3 (0.9-1.2) H 12/01/17 09:44 APTT 34.4 Seconds (25.6-37.1) 12/01/17 09:44 - Constitutional Appears: chronically ill, Intubated on Vent - Head Exam Head Exam: NORMAL INSPECTION, NORMOCEPHALIC - Eye Exam Eye Exam: Pupil Exam: Fixed, 4mm, not reactive to light - ENT Exam ENT Exam: Mucous Membranes Dry, Normal External Ear Exam - Neck Exam Neck Exam: absent: Meningismus - Respiratory Exam Respiratory Exam: Rhonchi, coarse rales Additional comments: Intubated on Vent - Cardiovascular Exam Cardiovascular Exam: REGULAR RHYTHM, +S1, +S2 - GI/Abdominal Exam GI & Abdominal Exam: Soft, Normal Bowel Sounds OGT in place - Extremities Exam Extremities Exam: Normal Capillary Refill, Pedal Edema, edematous upper ext - Neurological Exam Additional comments: responds to deep pain with movement of extremities fixed pupils no gag reflex Assessment and Plan (1) Acute CVA (cerebrovascular accident) Status: Acute (2) Altered mental status Status: Acute (3) Slurring of speech Status: Acute (4) HTN (hypertension) Status: Chronic (5) Acute metabolic encephalopathy Status: Acute (6) Acute respiratory insufficiency Status: Acute (7) DVT prophylaxis Status: Acute - Assessment and Plan (Free Text) Assessment: White male , Tez White , unkempt, unknown PMH was brought by EMS after he was observed by bystanders falling in the street. Patient was lethargic on admission however arousable , noted to have a facial droop and his speech was slurred. CT of head : Moderate to significant diffuse/confluent chronic white matter ischemic changes seen extending from the periventricular into the subcortical regions bilaterally. Changes are most pronounced in the parietal lobes. In addition, there are scattered chronic bilateral basal nuclei lacunar type infarcts. Small lacunar type infarcts also seen both cerebellar hemispheres. Note that the possibility of a small hyperacute infarct cannot be excluded on this study. Clinical correlation recommended. Marked dilatation of the atria and occipital horns possibly secondary to central volume loss on which is above most pronounced in the temporal occipital and parietal watershed zone regions On 11/16 noted to be obtunded ,unable to clear his secretions, tachypneic and saturation in the 80%. He was transferred to ICU and intubated for airway protection. Repeat CT of head showed no change. MRI showed pontine, midbrain , cerebellar hemispheres and thalami infarct. 11/22: With episode of vomiting and possible aspiration became hypotensive, tachycardic, febrile, hypoxemic Repeat CT head 11/28 showed :Gross edematous changes affect cerebellar hemispheres bilaterally sparing only the inferior margins somewhat and causing compression on the the mid to lower brainstem. The 4th ventricle is partially effaced but no obstructive hydrocephalus appreciated at this time. Edema has extend into the bilateral thalami, right greater than left further indicative of expanding infarction. No intracranial hemorrhage. Ethics Committee to discuss patient's case. Emergency guardianship application in progress. 12/02: Given pt's poor prognosis, in my medical opinion , if patient goes into Cardiac Arrest , doing CPR would be medically futile . Discussed with Chief Supply Chain Officer - Dr Montejo who agrees . At this point , a Do not Escalate treatment would be more appropriate. 1. Sepsis due to Aspiration Pneumonia Intubated on Vent ( PVRC/AC 12/450/5/60%) BP improved, off levophed drip , afebrile , WBC trended down to normal 10 K procalcitonin was elevated 79 trachea aspirates positive for Citrobacter Continue Zosyn Completed Vanco treatment - d/c today ID consulted : Dr. Anderson Keep HOB elevated , aspiration, precautions,respiratory toilet with frequent suctioning rpt CXR, rpt Sputum /Trach asp c/s 2. Acute CVA Patient is comatose at present , noticed slight withdrawal to painful stimuli , pupils nonreactive MRI brain showed pontine , midbrain, cerebellar hemispheres and thalamic infarct Neurology on consult Repeat CT of head 11/28 showed :Gross edematous changes affect cerebellar hemispheres bilaterally sparing only the inferior margins somewhat and causing compression on the the mid to lower brainstem. The 4th ventricle is partially effaced but no obstructive hydrocephalus appreciated at this time. Edema has extend into the bilateral thalami, right greater than left further indicative of expanding infarction. No intracranial hemorrhage. Placed on Hypertonic Saline to keep Na at least 145 Poor Prognosis Continue ASA, Statin, Plavix Sharing network has been notified Ethics Committee met -rec application for emergency guardianship 3. UTI urine cx positive for Strep viridans on Vanco IV 4. ? Alcoholism unclear if alcoholic, cannot obtain hx however ED note stated that patient has history of ETOH ETOH level low urine Tox : neg Thiamine and FA DVT prophylaxis Acute Lovenox
[2017-12-02] MEDS ORDERED: Famotidine 40 MG/5 ML PO SCH (09:00)
[2017-12-02] MEDS ORDERED: Famotidine 20mg/50ml 40 MG/100 ML BAG IVPB SCH (09:00)
[2017-12-02] MEDS ORDERED: Sodium Chloride 3% for Inhalation 4 ML VIAL.NEB IH PRN (09:03)
--- NOTE | 2017-12-02 09:14 | RAD ---
HISTORY: intubated, left pleural effusion COMPARISON: Chest radiograph dated 12/01/2017. FINDINGS: LUNGS: Pulmonary vascular congestion. Left basilar atelectasis. PLEURA: Small left pleural effusion. No pneumothorax apparent. CARDIOVASCULAR: Atherosclerotic aortic calcifications. Cardiomediastinal silhouette unchanged. OSSEOUS STRUCTURES: Unchanged. VISUALIZED UPPER ABDOMEN: Normal. OTHER FINDINGS: Endotracheal and enteric tubes, unchanged. Right internal jugular access central venous catheter, unchanged. IMPRESSION: No significant change in pulmonary vascular congestion and small left pleural effusion. Stable tubes and lines.
--- NOTE | 2017-12-02 09:45 | CP.PCM.PN ---
Subjective - Date & Time of Evaluation Date of Evaluation: 12/02/17 Time of Evaluation: 09:45 - Subjective Subjective: Mr. White was seen and examined at the bedside in ICU. He remains on mechanical ventilator on PRVC mode. His pupils are slight mydriasis 4mm bilaterally, non- reactive to light accommodation, no corneal reflex, + gag reflex, withdraws from pain stimuli, GCS-4T. He also breath over the set vent. settings with a thick yellowish- greenish sputum and episode of febrile, on hypothermic blanket.He also has edema noted in his bilateral upper extremities and sctotal area, on diuretics with moderate to large amount of urine output noted. There was no untoward events overnight Objective - Vital Signs/Intake and Output Vital Signs (last 24 hours): Temp Pulse Resp BP Pulse Ox 99.6 F 94 H 16 128/71 99 12/02/17 08:00 12/02/17 08:00 12/02/17 08:00 12/02/17 08:00 12/02/17 08:00 Intake and Output: 12/02/17 12/02/17 06:59 18:59 Intake Total 1370 120 Output Total 700 Balance 670 120 - Medications Medications: Current Medications Acetaminophen (Tylenol 650mg/20.3ml Solution Ud) 650 mg PO Q6 PRN PRN Reason: fever > 100.4 Last Admin: 11/27/17 20:31 Dose: 650 mg Aspirin (Aspirin Chewable) 81 mg NG DAILY [facility] Last Admin: 12/02/17 08:56 Dose: 81 mg Atorvastatin Calcium (Lipitor) 40 mg PO HS [facility] Last Admin: 12/01/17 21:00 Dose: 40 mg Clopidogrel Bisulfate (Plavix) 75 mg NG DAILY [facility] Last Admin: 12/02/17 08:56 Dose: 75 mg Enoxaparin Sodium (Lovenox) 40 mg SC DAILY [facility] PRN Reason: Protocol Last Admin: 12/02/17 08:56 Dose: 40 mg Famotidine (Pepcid) 40 mg PO DAILY [facility] Last Admin: 12/02/17 08:58 Dose: 40 mg Folic Acid (Folic Acid) 1 mg GT DAILY [facility] Last Admin: 12/02/17 08:56 Dose: 1 mg Piperacillin Sod/Tazobactam (Sod 3.375 gm/ Sodium Chloride) 100 mls @ 100 mls/ hr IVPB Q6 [facility] PRN Reason: Protocol Last Admin: 12/02/17 09:02 Dose: 100 mls/hr Thiamine HCl (Vitamin B1 Tab) 100 mg NG DAILY [facility] Last Admin: 12/02/17 08:57 Dose: 100 mg - Labs Labs: 12/02/17 04:20 12/02/17 04:20 PT 14.1 Seconds (9.8-13.1) H 12/01/17 09:44 INR 1.3 (0.9-1.2) H 12/01/17 09:44 APTT 34.4 Seconds (25.6-37.1) 12/01/17 09:44 - Constitutional Appears: No Acute Distress - Head Exam Head Exam: NORMAL INSPECTION - Eye Exam Pupil Exam: Fixed, Mydriatic - Neurological Exam Neuro motor strength exam: Left Upper Extremity: 0, Right Upper Extremity: 0, Left Lower Extremity: 0, Right Lower Extremity: 0 Additional comments: GCS- 4T Assessment and Plan (1) Ischemic stroke Assessment & Plan: Case discussed with Dr. Mcneill, continue all current medical regimen. Patient will be on DNR as of today by 2 physicians. Recommend to treat any abnormalities in hematology, electrolyte abnormalities, keep head of bed elevated at least 30 degrees, blood pressure and glycemic control. Status: Acute
[2017-12-03] MEDS: Piperacillin/Tazobact 3.375 GM in Sodium Chloride 0.9% 100 ML IVPB SCH ×4 (04:44→21:34)
[2017-12-03 04:54] LABS: ABG ALLEN TEST YES; ARTERIAL BLOOD GAS HCO3 33.1 mmol/L (21-28); ARTERIAL BLOOD GAS HEMOGLOBIN 8.7 g/dL (11.7-17.4); ARTERIAL BLOOD GAS O2 CAPACITY 12.1 mL/dL (16-24); ARTERIAL BLOOD GAS O2 SAT 99.1 % (95-98); ARTERIAL BLOOD GAS PCO2 47 mm/Hg (35-45); ARTERIAL BLOOD GAS PH 7.48 (7.35-7.45); ARTERIAL BLOOD GAS PO2 85 mm/Hg (80-100); ARTERIAL BLOOD GAS TCO2 36.4 mmol/L (22-28)
[2017-12-03 06:40] LABS: HEMOGLOBIN 8.8 g/dL (12.0-18.0); MEAN CELL VOLUME 92.4 fl (80.0-94.0); MEAN CORPUSCULAR HEMOGLOBIN 30.8 pg (27.0-31.0); MEAN CORPUSCULAR HGB CONC 33.3 g/dL (33.0-37.0); RBC 2.86 Mil/uL (4.40-5.90); WHITE BLOOD COUNT 7.5 K/uL (4.8-10.8)
[2017-12-03 06:52] LABS: ALB/GLOB RATIO 0.7 (1.0-2.1); ALBUMIN 2.9 g/dL (3.5-5.0); ALT/SGPT 44 U/L (21-72); AST/SGOT 71 U/L (17-59); BLOOD UREA NITROGEN 18 mg/dl (9-20); CALCIUM 8.1 mg/dL (8.4-10.2); GFR AFRICAN-AMERICAN > 60; GFR NON-AFRICAN AMERICAN > 60
--- NOTE | 2017-12-03 08:02 | CP.CCUPN ---
CCU Subjective - Physician Review Events Since Last Encounter (Free Text): 12/03/17 08:00 Patient on ventilator, on PRVC TV 450, RR 12, FIO2 40%, no response to verbal stimuli, no pressors, events reviewed CCU Objective - Vital Signs / Intake & Output Vital Signs (Last 4 hours): Vital Signs Temp Pulse Resp BP Pulse Ox 12/03/17 07:44 96.9 F L 16 141/75 100 12/03/17 06:00 98.7 F 86 12 125/66 96 Intake and Output (Last 8hrs): Intake & Output 12/02/17 12/03/17 12/03/17 22:59 06:59 14:59 Intake Total 630 630 120 Output Total 700 Balance 630 -70 120 Weight 154 lb Intake: Tube Feeding 480 480 120 Free Water Flush 150 150 Output: Urine 700 2-way Urethral 700 - Physical Exam Head: Positive for: Atraumatic, Normocephalic. Negative for: Ecchymosis, Abrasion, Laceration Pupils: Positive for: Non-Reactive, Other (midline, +corneal reflex, approx 4mm ). Negative for: PERRL Extroacular Muscles: Negative for: EOMI, Gaze Palsy Conjunctiva: Positive for: Normal. Negative for: Injected, Icteric Ears: Positive for: Normal Mouth: Positive for: Dry Pharnyx: Positive for: Normal. Negative for: ERYTHEMA, EXUDATE, TONSILS ENLARGED Neck: Positive for: Normal Range of Motion, Trachea Midline, Other (R. IJ line) . Negative for: Meningeal Signs, JVD, Lymphadenopathy Respiratory/Chest: Positive for: Good Air Exchange. Negative for: Clear to Auscultation (gugrling sounds, distant breath sounds b/l), Respiratory Distress , Decreased Breath Sounds, Rales, Retracting, Rhonchi, Tachypneic, Tender to Palpation Cardiovascular: Positive for: Normal S1, S2, Peripheal Pulses Present (present but faint ), Tachycardic. Negative for: Regular Rate and Rhythm, Murmurs, Irregular Rhythm, Rub, Gallop, Muffled Abdomen: Positive for: Normal Bowel Sounds. Negative for: Tenderness, Distention, Peritoneal Signs Upper Extremity: Positive for: Normal Inspection, Capillary Refill < 2s. Negative for: Cyanosis, Edema Lower Extremity: Positive for: Normal Inspection, NORMAL PULSES, Cyanosis, Neurovascularly Intact, Capillary Refill < 2 s. Negative for: Edema, CALF TENDERNESS, Swelling, Erythema, Temperature Abnormalties Neurological: Positive for: Other (intermittent decerebrate posturing, less frequent today. ). Negative for: GCS=15 (GCS: 4T), CN II-XII Intact, Speech Normal (unable to evaluate ), Motor Func Grossly Intact, Normal Sensory Function , Normal Cerebellar Funct, Norm Deep Tendon Reflexes (diminished) Skin: Positive for: Dry, Cold (extremities ), Other (mottled ). Negative for: Normal Color (vitiligo?, chronic skin changes from weather exposure and recurrent friction/trauma ), Laceration Lymphatic: Negative for: Cervical Adenopathy Psychiatric: Positive for: Other (comatose). Negative for: Alert, Oriented x 3 , Normal Insight, Normal Concentration - Medications Active Medications: Active Medications Generic Name Dose Route Start Last Admin Trade Name Freq PRN Reason Stop Dose Admin Acetaminophen 650 mg 11/27/17 00:56 11/27/17 20:31 Tylenol 650mg/20.3ml Solution Ud PO 650 mg Q6 PRN Administration fever > 100.4 Aspirin 81 mg 11/19/17 09:00 12/02/17 08:56 Aspirin Chewable NG 81 mg DAILY [facility] Administration Atorvastatin Calcium 40 mg 11/17/17 22:00 12/02/17 21:30 Lipitor PO 40 mg HS [facility] Administration Clopidogrel Bisulfate 75 mg 11/18/17 09:45 12/02/17 08:56 Plavix NG 75 mg DAILY [facility] Administration Enoxaparin Sodium 40 mg 11/28/17 09:00 12/02/17 08:56 Lovenox SC 40 mg DAILY [facility] Administration Protocol Famotidine 40 mg 12/02/17 09:00 12/02/17 08:58 Pepcid PO 40 mg DAILY [facility] Administration Folic Acid 1 mg 11/17/17 09:00 12/02/17 08:56 Folic Acid GT 1 mg DAILY [facility] Administration Piperacillin Sod/Tazobactam 100 mls @ 100 mls/hr 11/21/17 04:00 12/03/17 04: 44 Sod 3.375 gm/ Sodium Chloride IVPB 100 mls/hr Q6 [facility] Administration Protocol Thiamine HCl 100 mg 11/17/17 13:45 12/02/17 08:57 Vitamin B1 Tab NG 100 mg DAILY [facility] Administration - Patient Studies Lab Studies: Microbiology Studies 12/02/17 18:00 Gram Stain - Final Trachasp Lab Studies 12/03/17 12/03/17 12/03/17 Range/Units 05:55 05:55 05:02 WBC 7.5 (4.8-10.8) K/uL RBC 2.86 L (4.40-5.90) Mil/uL Hgb 8.8 L (12.0-18.0) g/dL Hct 26.4 L (35.0-51.0) % MCV 92.4 (80.0-94.0) fl MCH 30.8 (27.0-31.0) pg MCHC 33.3 (33.0-37.0) g/dL RDW 15.0 H (11.5-14.5) % Plt Count 471 H (130-400) K/uL pCO2 (35-45) mm/Hg pO2 (80-100) mm/Hg HCO3 (21-28) mmol/L ABG pH (7.35-7.45) ABG Total CO2 (22-28) mmol/L ABG O2 Saturation (95-98) % ABG O2 Content (15-23) ML/dL ABG Base Excess (-2.0-3.0) mmol/L ABG Hemoglobin (11.7-17.4) g/dL ABG Carboxyhemoglobin (0.5-1.5) % POC ABG HHb (Measured) (0.0-5.0) % ABG Methemoglobin (0.0-3.0) % ABG O2 Capacity (16-24) mL/dL Roberto Test A-a O2 Difference mm/Hg Hgb O2 Saturation (95.0-98.0) % Vent Mode Mechanical Rate FiO2 % Tidal Volume PEEP Sodium 141 (132-148) mmol/l Potassium 3.6 (3.6-5.0) MMOL/L Chloride 98 (98-107) mmol/L Carbon Dioxide 33 H (22-30) mmol/L Anion Gap 14 (10-20) BUN 18 (9-20) mg/dl Creatinine 0.6 L (0.8-1.5) mg/dl Est GFR ( Amer) > 60 Est GFR (Non-Af Amer) > 60 POC Glucose (mg/dL) 142 H (65-110) mg/dL Random Glucose 117 H (75-110) mg/dL Calcium 8.1 L (8.4-10.2) mg/dL Total Bilirubin 0.6 (0.2-1.3) mg/dl AST 71 H D (17-59) U/L ALT 44 (21-72) U/L Alkaline Phosphatase 100 (38-126) U/L Total Protein 6.9 (6.3-8.2) G/DL Albumin 2.9 L (3.5-5.0) g/dL Globulin 4.0 H (2.2-3.9) gm/dL Albumin/Globulin Ratio 0.7 L (1.0-2.1) 12/03/17 12/02/17 12/02/17 Range/Units 04:00 21:08 16:37 WBC (4.8-10.8) K/uL RBC (4.40-5.90) Mil/uL Hgb (12.0-18.0) g/dL Hct (35.0-51.0) % MCV (80.0-94.0) fl MCH (27.0-31.0) pg MCHC (33.0-37.0) g/dL RDW (11.5-14.5) % Plt Count (130-400) K/uL pCO2 47 H (35-45) mm/Hg pO2 85 (80-100) mm/Hg HCO3 33.1 H (21-28) mmol/L ABG pH 7.48 H (7.35-7.45) ABG Total CO2 36.4 H (22-28) mmol/L ABG O2 Saturation 99.1 H (95-98) % ABG O2 Content 12.0 L (15-23) ML/dL ABG Base Excess 10.4 H (-2.0-3.0) mmol/L ABG Hemoglobin 8.7 L (11.7-17.4) g/dL ABG Carboxyhemoglobin 1.5 (0.5-1.5) % POC ABG HHb (Measured) 0.9 (0.0-5.0) % ABG Methemoglobin 0.9 (0.0-3.0) % ABG O2 Capacity 12.1 L (16-24) mL/dL Roberto Test Yes A-a O2 Difference 141.0 mm/Hg Hgb O2 Saturation 96.7 (95.0-98.0) % Vent Mode A/c Mechanical Rate 450 FiO2 40.0 % Tidal Volume 12 PEEP 5 Sodium (132-148) mmol/l Potassium (3.6-5.0) MMOL/L Chloride (98-107) mmol/L Carbon Dioxide (22-30) mmol/L Anion Gap (10-20) BUN (9-20) mg/dl Creatinine (0.8-1.5) mg/dl Est GFR ( Amer) Est GFR (Non-Af Amer) POC Glucose (mg/dL) 139 H 171 H (65-110) mg/dL Random Glucose (75-110) mg/dL Calcium (8.4-10.2) mg/dL Total Bilirubin (0.2-1.3) mg/dl AST (17-59) U/L ALT (21-72) U/L Alkaline Phosphatase (38-126) U/L Total Protein (6.3-8.2) G/DL Albumin (3.5-5.0) g/dL Globulin (2.2-3.9) gm/dL Albumin/Globulin Ratio (1.0-2.1) 05/25/18 Range/Units 11:08 WBC (4.8-10.8) K/uL RBC (4.40-5.90) Mil/uL Hgb (12.0-18.0) g/dL Hct (35.0-51.0) % MCV (80.0-94.0) fl MCH (27.0-31.0) pg MCHC (33.0-37.0) g/dL RDW (11.5-14.5) % Plt Count (130-400) K/uL pCO2 (35-45) mm/Hg pO2 (80-100) mm/Hg HCO3 (21-28) mmol/L ABG pH (7.35-7.45) ABG Total CO2 (22-28) mmol/L ABG O2 Saturation (95-98) % ABG O2 Content (15-23) ML/dL ABG Base Excess (-2.0-3.0) mmol/L ABG Hemoglobin (11.7-17.4) g/dL ABG Carboxyhemoglobin (0.5-1.5) % POC ABG HHb (Measured) (0.0-5.0) % ABG Methemoglobin (0.0-3.0) % ABG O2 Capacity (16-24) mL/dL Roberto Test A-a O2 Difference mm/Hg Hgb O2 Saturation (95.0-98.0) % Vent Mode Mechanical Rate FiO2 % Tidal Volume PEEP Sodium (132-148) mmol/l Potassium (3.6-5.0) MMOL/L Chloride (98-107) mmol/L Carbon Dioxide (22-30) mmol/L Anion Gap (10-20) BUN (9-20) mg/dl Creatinine (0.8-1.5) mg/dl Est GFR ( Amer) Est GFR (Non-Af Amer) POC Glucose (mg/dL) 158 H (65-110) mg/dL Random Glucose (75-110) mg/dL Calcium (8.4-10.2) mg/dL Total Bilirubin (0.2-1.3) mg/dl AST (17-59) U/L ALT (21-72) U/L Alkaline Phosphatase (38-126) U/L Total Protein (6.3-8.2) G/DL Albumin (3.5-5.0) g/dL Globulin (2.2-3.9) gm/dL Albumin/Globulin Ratio (1.0-2.1) Laboratory Results - last 24 hr 12/02/17 12/02/17 12/02/17 11:08 16:37 21:08 WBC RBC Hgb Hct MCV MCH MCHC RDW Plt Count pCO2 pO2 HCO3 ABG pH ABG Total CO2 ABG O2 Saturation ABG O2 Content ABG Base Excess ABG Hemoglobin ABG Carboxyhemoglobin POC ABG HHb (Measured) ABG Methemoglobin ABG O2 Capacity Roberto Test A-a O2 Difference Hgb O2 Saturation Vent Mode Mechanical Rate FiO2 Tidal Volume PEEP Sodium Potassium Chloride Carbon Dioxide Anion Gap BUN Creatinine Est GFR ( Amer) Est GFR (Non-Af Amer) POC Glucose (mg/dL) 158 H 171 H 139 H Random Glucose Calcium Total Bilirubin AST ALT Alkaline Phosphatase Total Protein Albumin Globulin Albumin/Globulin Ratio 12/03/17 12/03/17 12/03/17 04:00 05:02 05:55 WBC 7.5 RBC 2.86 L Hgb 8.8 L Hct 26.4 L MCV 92.4 MCH 30.8 MCHC 33.3 RDW 15.0 H Plt Count 471 H pCO2 47 H pO2 85 HCO3 33.1 H ABG pH 7.48 H ABG Total CO2 36.4 H ABG O2 Saturation 99.1 H ABG O2 Content 12.0 L ABG Base Excess 10.4 H ABG Hemoglobin 8.7 L ABG Carboxyhemoglobin 1.5 POC ABG HHb (Measured) 0.9 ABG Methemoglobin 0.9 ABG O2 Capacity 12.1 L Roberto Test Yes A-a O2 Difference 141.0 Hgb O2 Saturation 96.7 Vent Mode A/c Mechanical Rate 450 FiO2 40.0 Tidal Volume 12 PEEP 5 Sodium Potassium Chloride Carbon Dioxide Anion Gap BUN Creatinine Est GFR ( Amer) Est GFR (Non-Af Amer) POC Glucose (mg/dL) 142 H Random Glucose Calcium Total Bilirubin AST ALT Alkaline Phosphatase Total Protein Albumin Globulin Albumin/Globulin Ratio 12/03/17 05:55 WBC RBC Hgb Hct MCV MCH MCHC RDW Plt Count pCO2 pO2 HCO3 ABG pH ABG Total CO2 ABG O2 Saturation ABG O2 Content ABG Base Excess ABG Hemoglobin ABG Carboxyhemoglobin POC ABG HHb (Measured) ABG Methemoglobin ABG O2 Capacity Roberto Test A-a O2 Difference Hgb O2 Saturation Vent Mode Mechanical Rate FiO2 Tidal Volume PEEP Sodium 141 Potassium 3.6 Chloride 98 Carbon Dioxide 33 H Anion Gap 14 BUN 18 Creatinine 0.6 L Est GFR ( Amer) > 60 Est GFR (Non-Af Amer) > 60 POC Glucose (mg/dL) Random Glucose 117 H Calcium 8.1 L Total Bilirubin 0.6 AST 71 H D ALT 44 Alkaline Phosphatase 100 Total Protein 6.9 Albumin 2.9 L Globulin 4.0 H Albumin/Globulin Ratio 0.7 L Fingerstick Blood Sugar Results: 142 Critical Care Progress Note - Nutrition Nutrition: Nutrition Category Date Time Status NPO Diet [DIET] Diets 11/15/17 Lunch Active Assessment/Plan - Assessment and Plan (Free Text) Assessment: A/P Respiratory failure, sepsis, pneumonia, pleural effusion, altered mental status , CVA, anemia - Ventilatory support - Pulmonary toilets - Continue meds - DVT prophylaxis - Poor prognosis Critical care 35 min
[2017-12-03] MEDS: Enoxaparin 40 mg Syringe SC SCH (08:21)
--- NOTE | 2017-12-03 09:59 | CP.PCM.PN ---
Subjective - Date & Time of Evaluation Date of Evaluation: 12/03/17 Time of Evaluation: 09:30 - Subjective Subjective: Pt remains intubated , on [facility] Vent - PRVC/AC 06/4500/5/40% Responds only to deep pain. No Pupillary reflex, no gag reflex Breaths over the Vent Extremities edematous, some scrotal edema Tolerating tube feeding at 60ml/hr Good urine output Objective - Vital Signs/Intake and Output Vital Signs (last 24 hours): Temp Pulse Resp BP Pulse Ox 96.9 F L 86 16 141/75 100 12/03/17 07:44 12/03/17 06:00 12/03/17 07:44 12/03/17 07:44 12/03/17 07:44 Intake and Output: 12/03/17 12/03/17 06:59 18:59 Intake Total 870 120 Output Total 700 Balance 170 120 - Medications Medications: Current Medications Acetaminophen (Tylenol 650mg/20.3ml Solution Ud) 650 mg PO Q6 PRN PRN Reason: fever > 100.4 Last Admin: 11/27/17 20:31 Dose: 650 mg Aspirin (Aspirin Chewable) 81 mg NG DAILY [facility] Last Admin: 12/03/17 08:21 Dose: 81 mg Atorvastatin Calcium (Lipitor) 40 mg PO HS [facility] Last Admin: 12/02/17 21:30 Dose: 40 mg Clopidogrel Bisulfate (Plavix) 75 mg NG DAILY [facility] Last Admin: 12/03/17 08:21 Dose: 75 mg Enoxaparin Sodium (Lovenox) 40 mg SC DAILY [facility] PRN Reason: Protocol Last Admin: 12/03/17 08:21 Dose: 40 mg Famotidine (Pepcid) 40 mg PO DAILY [facility] Last Admin: 12/03/17 08:21 Dose: 40 mg Folic Acid (Folic Acid) 1 mg GT DAILY [facility] Last Admin: 12/03/17 08:21 Dose: 1 mg Piperacillin Sod/Tazobactam (Sod 3.375 gm/ Sodium Chloride) 100 mls @ 100 mls/ hr IVPB Q6 [facility] PRN Reason: Protocol Last Admin: 12/03/17 04:44 Dose: 100 mls/hr Thiamine HCl (Vitamin B1 Tab) 100 mg NG DAILY [facility] Last Admin: 12/03/17 08:21 Dose: 100 mg - Labs Labs: 12/03/17 05:55 12/03/17 05:55 PT 14.1 Seconds (9.8-13.1) H 12/01/17 09:44 INR 1.3 (0.9-1.2) H 12/01/17 09:44 APTT 34.4 Seconds (25.6-37.1) 12/01/17 09:44 - Constitutional Appears: chronically ill, Intubated on Vent (PVRC/AC 40% FiO2) - Head Exam Head Exam: NORMAL INSPECTION, NORMOCEPHALIC - Eye Exam Eye Exam: Pupil Exam: Fixed, 4mm, not reactive to light - ENT Exam ENT Exam: Mucous Membranes Dry, Normal External Ear Exam - Neck Exam Neck Exam: absent: Meningismus - Respiratory Exam Respiratory Exam: Rhonchi, coarse rales Additional comments: Intubated on Vent - Cardiovascular Exam Cardiovascular Exam: REGULAR RHYTHM, +S1, +S2 - GI/Abdominal Exam GI & Abdominal Exam: Soft, Normal Bowel Sounds OGT in place - Extremities Exam Extremities Exam: Normal Capillary Refill, Pedal Edema, edematous upper ext - Neurological Exam Additional comments: responds to deep pain with movement of extremities fixed pupils no gag reflex Assessment and Plan (1) Acute CVA (cerebrovascular accident) Status: Acute (2) Altered mental status Status: Acute (3) Slurring of speech Status: Acute (4) HTN (hypertension) Status: Chronic (5) Acute metabolic encephalopathy Status: Acute (6) Acute respiratory insufficiency Status: Acute (7) DVT prophylaxis Status: Acute - Assessment and Plan (Free Text) Assessment: White male , Tez White , unkempt, unknown PMH was brought by EMS after he was observed by bystanders falling in the street. Patient was lethargic on admission however arousable , noted to have a facial droop and his speech was slurred. CT of head : Moderate to significant diffuse/confluent chronic white matter ischemic changes seen extending from the periventricular into the subcortical regions bilaterally. Changes are most pronounced in the parietal lobes. In addition, there are scattered chronic bilateral basal nuclei lacunar type infarcts. Small lacunar type infarcts also seen both cerebellar hemispheres. Note that the possibility of a small hyperacute infarct cannot be excluded on this study. Clinical correlation recommended. Marked dilatation of the atria and occipital horns possibly secondary to central volume loss on which is above most pronounced in the temporal occipital and parietal watershed zone regions On 11/16 noted to be obtunded ,unable to clear his secretions, tachypneic and saturation in the 80%. He was transferred to ICU and intubated for airway protection. Repeat CT of head showed no change. MRI showed pontine, midbrain , cerebellar hemispheres and thalami infarct. 11/22: With episode of vomiting and possible aspiration became hypotensive, tachycardic, febrile, hypoxemic Repeat CT head 11/28 showed :Gross edematous changes affect cerebellar hemispheres bilaterally sparing only the inferior margins somewhat and causing compression on the the mid to lower brainstem. The 4th ventricle is partially effaced but no obstructive hydrocephalus appreciated at this time. Edema has extend into the bilateral thalami, right greater than left further indicative of expanding infarction. No intracranial hemorrhage. Ethics Committee meeting - rec Emergency guardianship , application in progress. 12/02: Given pt's poor prognosis, in my medical opinion , if patient goes into Cardiac Arrest , doing CPR would be medically futile . Discussed with Dental Prosthetist - Dr Montjeo who agrees . At this point , a Do not Escalate treatment would be more appropriate. 1. Sepsis due to Aspiration Pneumonia Intubated on Vent ( PVRC/AC 12/450/5/60%) BP improved, off levophed drip , afebrile , WBC trended down to normal 10 K procalcitonin was elevated 79 trachea aspirate: positive for Citrobacter Continue Zosyn Completed Vanco treatment - d/c today ID consulted : Dr. Anderson Keep HOB elevated , aspiration, precautions,respiratory toilet with frequent suctioning 12/02 : rpt Sputum /Trach asp c/s: Gram neg rods, Rpt CXR : improving aeration , left, stable pleural effusion 2. Acute CVA Patient is comatose at present , noticed slight withdrawal to painful stimuli , pupils nonreactive MRI brain showed pontine , midbrain, cerebellar hemispheres and thalamic infarct Neurology on consult Repeat CT of head 11/28 showed :Gross edematous changes affect cerebellar hemispheres bilaterally sparing only the inferior margins somewhat and causing compression on the the mid to lower brainstem. The 4th ventricle is partially effaced but no obstructive hydrocephalus appreciated at this time. Edema has extend into the bilateral thalami, right greater than left further indicative of expanding infarction. No intracranial hemorrhage. Placed on Hypertonic Saline to keep Na at least 145 Poor Prognosis Continue ASA, Statin, Plavix Sharing network has been notified Ethics Committee met -rec application for emergency guardianship 3. UTI urine cx positive for Strep viridans received Vanco IV 4. ? Alcoholism unclear if alcoholic, cannot obtain hx however ED note stated that patient has history of ETOH ETOH level low urine Tox : neg Thiamine and FA DVT prophylaxis Acute Lovenox
--- NOTE | 2017-12-03 10:04 | RAD ---
HISTORY: intubated/effusion COMPARISON: 12/02/2017. FINDINGS: The right IJV line terminates in the distal SVC. The endotracheal tube terminates 6.5 cm proximal to the haresh. The nasogastric tube terminates in the stomach. LUNGS: The right lung is well inflated and clear. There is improved aeration in the left lower lobe. PLEURA: Again seen is a small left pleural effusion, no pneumothorax apparent. CARDIOVASCULAR: Normal. OSSEOUS STRUCTURES: No significant abnormalities. VISUALIZED UPPER ABDOMEN: Normal. OTHER FINDINGS: None. IMPRESSION: Improving aeration in the left lower lobe and redemonstration of left pleural effusion. Stable position of support line and tubes.
[2017-12-04] MEDS: Piperacillin/Tazobact 3.375 GM in Sodium Chloride 0.9% 100 ML IVPB SCH ×4 (04:24→21:30)
[2017-12-04 04:50] LABS: ABG ALLEN TEST YES; ARTERIAL BLOOD GAS HCO3 30.6 mmol/L (21-28); ARTERIAL BLOOD GAS HEMOGLOBIN 9.3 g/dL (11.7-17.4); ARTERIAL BLOOD GAS O2 CONTENT 12.9 ML/dL (15-23); ARTERIAL BLOOD GAS O2 SAT 99.4 % (95-98); ARTERIAL BLOOD GAS PCO2 49 mm/Hg (35-45); ARTERIAL BLOOD GAS PH 7.43 (7.35-7.45); ARTERIAL BLOOD GAS PO2 127 mm/Hg (80-100)
[2017-12-04 05:28] LABS: BASO # 0.1 K/uL (0.0-0.2); BASO % 1.2 % (0.0-2.0); EOS # 0.1 K/uL (0.0-0.7); EOS % 1.3 % (0.0-4.0); HEMOGLOBIN 8.7 g/dL (12.0-18.0); LYMPH % 19.4 % (20.0-40.0); MEAN CELL VOLUME 91.6 fl (80.0-94.0); MEAN CORPUSCULAR HEMOGLOBIN 29.7 pg (27.0-31.0); MEAN CORPUSCULAR HGB CONC 32.4 g/dL (33.0-37.0); MEAN PLATELET VOLUME 9.1 fl (7.2-11.7); MONO # 0.9 K/uL (0.0-0.8); MONO % 17.3 % (0.0-10.0); NEUT # 3.2 K/uL (1.8-7.0); NEUT % 60.8 % (50.0-75.0); NRBC % 0.1 % (0.0-0.0); RBC 2.94 Mil/uL (4.40-5.90); RED CELL DISTRIBUTION WIDTH 15.3 % (11.5-14.5); WHITE BLOOD COUNT 5.3 K/uL (4.8-10.8)
[2017-12-04 05:41] LABS: ALB/GLOB RATIO 0.7 (1.0-2.1); ALBUMIN 2.9 g/dL (3.5-5.0); ALT/SGPT 53 U/L (21-72); AST/SGOT 87 U/L (17-59); BLOOD UREA NITROGEN 17 mg/dl (9-20); CALCIUM 8.1 mg/dL (8.4-10.2); GFR AFRICAN-AMERICAN > 60; GFR NON-AFRICAN AMERICAN > 60
--- NOTE | 2017-12-04 07:18 | CP.PCM.PN ---
Subjective - Date & Time of Evaluation Date of Evaluation: 12/04/17 Time of Evaluation: 07:18 - Subjective Subjective: patient intubated AC, breathing over vent. no acute distress. not responding to verbal/painful stim +gag reflex HD stable Objective - Vital Signs/Intake and Output Vital Signs (last 24 hours): Temp Pulse Resp BP Pulse Ox 98.4 F 94 H 22 153/86 H 100 12/04/17 06:00 12/04/17 06:00 12/04/17 06:00 12/04/17 06:00 12/04/17 06:00 Intake and Output: 12/04/17 12/04/17 06:59 18:59 Intake Total 1332 Output Total 950 Balance 382 Vitals Reviewed GEN: intubated. unresponsive. HEENT: NCAT, pupillary reflexes HEART: RRR, +S1S2, NO MRG LUNG: CTAB, NO WRR ABD: soft, NT, ND, BSX4, No masses EXT: normal pedal pulses, normal capillary refill NEURO: +GAG reflex, not responsve to pain/verbal stim SKIN: warm, dry PSYCH: intubated, unresponsive - Medications Medications: Current Medications Acetaminophen (Tylenol 650mg/20.3ml Solution Ud) 650 mg PO Q6 PRN PRN Reason: fever > 100.4 Last Admin: 11/27/17 20:31 Dose: 650 mg Aspirin (Aspirin Chewable) 81 mg NG DAILY [facility] Last Admin: 12/03/17 08:21 Dose: 81 mg Atorvastatin Calcium (Lipitor) 40 mg PO HS [facility] Last Admin: 12/03/17 21:34 Dose: 40 mg Clopidogrel Bisulfate (Plavix) 75 mg NG DAILY [facility] Last Admin: 12/03/17 08:21 Dose: 75 mg Enoxaparin Sodium (Lovenox) 40 mg SC DAILY [facility] PRN Reason: Protocol Last Admin: 12/03/17 08:21 Dose: 40 mg Famotidine (Pepcid) 40 mg PO DAILY [facility] Last Admin: 12/03/17 08:21 Dose: 40 mg Folic Acid (Folic Acid) 1 mg GT DAILY [facility] Last Admin: 12/03/17 08:21 Dose: 1 mg Piperacillin Sod/Tazobactam (Sod 3.375 gm/ Sodium Chloride) 100 mls @ 100 mls/ hr IVPB Q6 [facility] PRN Reason: Protocol Last Admin: 12/04/17 04:24 Dose: 100 mls/hr Thiamine HCl (Vitamin B1 Tab) 100 mg NG DAILY [facility] Last Admin: 12/03/17 08:21 Dose: 100 mg - Labs Labs: 12/04/17 04:30 12/04/17 04:30 PT 14.1 Seconds (9.8-13.1) H 12/01/17 09:44 INR 1.3 (0.9-1.2) H 12/01/17 09:44 APTT 34.4 Seconds (25.6-37.1) 12/01/17 09:44 Assessment and Plan - Assessment and Plan (Free Text) Plan: White male , Tez White , unkempt, unknown PMH was brought by EMS after he was observed by bystanders falling in the street. Patient was lethargic on admission however arousable , noted to have a facial droop and his speech was slurred. CT of head : Moderate to significant diffuse/confluent chronic white matter ischemic changes seen extending from the periventricular into the subcortical regions bilaterally. Changes are most pronounced in the parietal lobes. In addition, there are scattered chronic bilateral basal nuclei lacunar type infarcts. Small lacunar type infarcts also seen both cerebellar hemispheres. Note that the possibility of a small hyperacute infarct cannot be excluded on this study. Clinical correlation recommended. Marked dilatation of the atria and occipital horns possibly secondary to central volume loss on which is above most pronounced in the temporal occipital and parietal watershed zone regions On 11/16 noted to be obtunded ,unable to clear his secretions, tachypneic and saturation in the 80%. He was transferred to ICU and intubated for airway protection. Repeat CT of head showed no change. MRI showed pontine, midbrain , cerebellar hemispheres and thalami infarct. 11/22: With episode of vomiting and possible aspiration became hypotensive, tachycardic, febrile, hypoxemic Repeat CT head 11/28 showed :Gross edematous changes affect cerebellar hemispheres bilaterally sparing only the inferior margins somewhat and causing compression on the the mid to lower brainstem. The 4th ventricle is partially effaced but no obstructive hydrocephalus appreciated at this time. Edema has extend into the bilateral thalami, right greater than left further indicative of expanding infarction. No intracranial hemorrhage. Ethics Committee meeting - rec Emergency guardianship , application in progress. 12/02: Given pt's poor prognosis, in my medical opinion , if patient goes into Cardiac Arrest, doing CPR would be medically futile. Discussed with Senior Network Systems Engineer - Dr Montejo who agrees. At this point, a Do not Escalate treatment would be more appropriate. As per discussion with rest of hospitalist team, we will await application Emergency Guardianship application. 1. Sepsis due to Aspiration Pneumonia Intubated on Vent (PVRC/AC 12/450/5/60%) BP improved, off levophed drip , afebrile , WBC trended down to normal 10 K procalcitonin was elevated 79 trachea aspirate: positive for Citrobacter Continue Zosyn Completed Vanco treatment - d/c today ID consulted : Dr. Anderson Keep HOB elevated , aspiration, precautions,respiratory toilet with frequent suctioning 12/02 : rpt Sputum /Trach asp c/s: Gram neg rods, Rpt CXR : improving aeration , left, stable pleural effusion 2. Acute CVA Patient is comatose at present , noticed slight withdrawal to painful stimuli , pupils nonreactive MRI brain showed pontine , midbrain, cerebellar hemispheres and thalamic infarct Neurology on consult Repeat CT of head 11/28 showed :Gross edematous changes affect cerebellar hemispheres bilaterally sparing only the inferior margins somewhat and causing compression on the the mid to lower brainstem. The 4th ventricle is partially effaced but no obstructive hydrocephalus appreciated at this time. Edema has extend into the bilateral thalami, right greater than left further indicative of expanding infarction. No intracranial hemorrhage. Placed on Hypertonic Saline to keep Na at least 145 Poor Prognosis Continue ASA, Statin, Plavix [employer] network has been notified Ethics Committee met -rec application for emergency guardianship 3. UTI urine cx positive for Strep viridans received Vanco IV 4. ? Alcoholism unclear if alcoholic, cannot obtain hx however ED note stated that patient has history of ETOH ETOH level low urine Tox : neg Thiamine and FA DVT prophylaxis Acute Lovenox
--- NOTE | 2017-12-04 07:37 | CP.CCUPN ---
CCU Subjective - Physician Review Events Since Last Encounter (Free Text): Patient on ventilator, on PRVC TV 450, RR 12, FIO2 40%, no response to verbal stimuli, no pressors, events reviewed CCU Objective - Vital Signs / Intake & Output Vital Signs (Last 4 hours): Vital Signs Temp Pulse Resp BP Pulse Ox 12/04/17 06:00 98.4 F 94 H 22 153/86 H 100 12/04/17 04:00 100.1 F H 111 H 21 143/79 100 Intake and Output (Last 8hrs): Intake & Output 12/03/17 12/04/17 12/04/17 22:59 06:59 14:59 Intake Total 930 892 Output Total 650 950 Balance 280 -58 Weight 147 lb 11.2 oz Intake: IV 10 12 Intake, Piggyback 200 100 Tube Feeding 420 480 Free Water Flush 300 300 Output: Urine 650 950 2-way Urethral 650 950 - Physical Exam Head: Positive for: Atraumatic, Normocephalic. Negative for: Ecchymosis, Abrasion, Laceration Pupils: Positive for: Non-Reactive, Other (midline, +corneal reflex, approx 4mm ). Negative for: PERRL Extroacular Muscles: Negative for: EOMI, Gaze Palsy Conjunctiva: Positive for: Normal. Negative for: Injected, Icteric Ears: Positive for: Normal Mouth: Positive for: Dry Pharnyx: Positive for: Normal. Negative for: ERYTHEMA, EXUDATE, TONSILS ENLARGED Neck: Positive for: Normal Range of Motion, Trachea Midline, Other (R. IJ line) . Negative for: Meningeal Signs, JVD, Lymphadenopathy Respiratory/Chest: Positive for: Good Air Exchange. Negative for: Clear to Auscultation (gugrling sounds, distant breath sounds b/l), Respiratory Distress , Decreased Breath Sounds, Rales, Retracting, Rhonchi, Tachypneic, Tender to Palpation Cardiovascular: Positive for: Normal S1, S2, Peripheal Pulses Present (present but faint ), Tachycardic. Negative for: Regular Rate and Rhythm, Murmurs, Irregular Rhythm, Rub, Gallop, Muffled Abdomen: Positive for: Normal Bowel Sounds. Negative for: Tenderness, Distention, Peritoneal Signs Upper Extremity: Positive for: Normal Inspection, Capillary Refill < 2s. Negative for: Cyanosis, Edema Lower Extremity: Positive for: Normal Inspection, NORMAL PULSES, Cyanosis, Neurovascularly Intact, Capillary Refill < 2 s. Negative for: Edema, CALF TENDERNESS, Swelling, Erythema, Temperature Abnormalties Neurological: Positive for: Other (intermittent decerebrate posturing, less frequent today. ). Negative for: GCS=15 (GCS: 4T), CN II-XII Intact, Speech Normal (unable to evaluate ), Motor Func Grossly Intact, Normal Sensory Function , Normal Cerebellar Funct, Norm Deep Tendon Reflexes (diminished) Skin: Positive for: Dry, Cold (extremities ), Other (mottled ). Negative for: Normal Color (vitiligo?, chronic skin changes from weather exposure and recurrent friction/trauma ), Laceration Lymphatic: Negative for: Cervical Adenopathy Psychiatric: Positive for: Other (comatose). Negative for: Alert, Oriented x 3 , Normal Insight, Normal Concentration - Medications Active Medications: Active Medications Generic Name Dose Route Start Last Admin Trade Name Freq PRN Reason Stop Dose Admin Acetaminophen 650 mg 11/27/17 00:56 11/27/17 20:31 Tylenol 650mg/20.3ml Solution Ud PO 650 mg Q6 PRN Administration fever > 100.4 Aspirin 81 mg 11/19/17 09:00 12/03/17 08:21 Aspirin Chewable NG 81 mg DAILY [facility] Administration Atorvastatin Calcium 40 mg 11/17/17 22:00 12/03/17 21:34 Lipitor PO 40 mg HS [facility] Administration Clopidogrel Bisulfate 75 mg 11/18/17 09:45 12/03/17 08:21 Plavix NG 75 mg DAILY [facility] Administration Enoxaparin Sodium 40 mg 11/28/17 09:00 12/03/17 08:21 Lovenox SC 40 mg DAILY [facility] Administration Protocol Famotidine 40 mg 12/02/17 09:00 12/03/17 08:21 Pepcid PO 40 mg DAILY [facility] Administration Folic Acid 1 mg 11/17/17 09:00 12/03/17 08:21 Folic Acid GT 1 mg DAILY [facility] Administration Piperacillin Sod/Tazobactam 100 mls @ 100 mls/hr 11/21/17 04:00 12/04/17 04: 24 Sod 3.375 gm/ Sodium Chloride IVPB 100 mls/hr Q6 [facility] Administration Protocol Thiamine HCl 100 mg 11/17/17 13:45 12/03/17 08:21 Vitamin B1 Tab NG 100 mg DAILY [facility] Administration - Patient Studies Lab Studies: Microbiology Studies 12/02/17 18:00 Gram Stain - Final Trachasp Sputum Culture - Preliminary Gram Negative [facility] Studies 12/04/17 12/04/17 12/04/17 Range/Units 04:30 04:30 04:27 WBC 5.3 (4.8-10.8) K/uL RBC 2.94 L (4.40-5.90) Mil/uL Hgb 8.7 L (12.0-18.0) g/dL Hct 27.0 L (35.0-51.0) % MCV 91.6 (80.0-94.0) fl MCH 29.7 (27.0-31.0) pg MCHC 32.4 L (33.0-37.0) g/dL RDW 15.3 H (11.5-14.5) % Plt Count 452 H (130-400) K/uL MPV 9.1 (7.2-11.7) fl Neut % (Auto) 60.8 (50.0-75.0) % Lymph % (Auto) 19.4 L (20.0-40.0) % [place] % (Auto) 17.3 H (0.0-10.0) % Eos % (Auto) 1.3 (0.0-4.0) % Baso % (Auto) 1.2 (0.0-2.0) % Neut # (Auto) 3.2 (1.8-7.0) K/uL Lymph # (Auto) 1.0 (1.0-4.3) K/uL [place] # (Auto) 0.9 H (0.0-0.8) K/uL Eos # (Auto) 0.1 (0.0-0.7) K/uL Baso # (Auto) 0.1 (0.0-0.2) K/uL pCO2 (35-45) mm/Hg pO2 (80-100) mm/Hg HCO3 (21-28) mmol/L ABG pH (7.35-7.45) ABG Total CO2 (22-28) mmol/L ABG O2 Saturation (95-98) % ABG O2 Content (15-23) ML/dL ABG Base Excess (-2.0-3.0) mmol/L ABG Hemoglobin (11.7-17.4) g/dL ABG Carboxyhemoglobin (0.5-1.5) % POC ABG HHb (Measured) (0.0-5.0) % ABG Methemoglobin (0.0-3.0) % ABG O2 Capacity (16-24) mL/dL Roberto Test A-a O2 Difference mm/Hg Hgb O2 Saturation (95.0-98.0) % Vent Mode Mechanical Rate FiO2 % Tidal Volume PEEP Sodium 139 (132-148) mmol/l Potassium 3.8 (3.6-5.0) MMOL/L Chloride 96 L (98-107) mmol/L Carbon Dioxide 32 H (22-30) mmol/L Anion Gap 15 (10-20) BUN 17 (9-20) mg/dl Creatinine 0.6 L (0.8-1.5) mg/dl Est GFR ( Amer) > 60 Est GFR (Non-Af Amer) > 60 POC Glucose (mg/dL) 137 H (65-110) mg/dL Random Glucose 130 H (75-110) mg/dL Calcium 8.1 L (8.4-10.2) mg/dL Total Bilirubin 0.5 (0.2-1.3) mg/dl AST 87 H D (17-59) U/L ALT 53 (21-72) U/L Alkaline Phosphatase 100 (38-126) U/L Total Protein 7.0 (6.3-8.2) G/DL Albumin 2.9 L (3.5-5.0) g/dL Globulin 4.1 H (2.2-3.9) gm/dL Albumin/Globulin Ratio 0.7 L (1.0-2.1) 12/04/17 12/03/17 12/03/17 Range/Units 04:00 21:52 16:08 WBC (4.8-10.8) K/uL RBC (4.40-5.90) Mil/uL Hgb (12.0-18.0) g/dL Hct (35.0-51.0) % MCV (80.0-94.0) fl MCH (27.0-31.0) pg MCHC (33.0-37.0) g/dL RDW (11.5-14.5) % Plt Count (130-400) K/uL MPV (7.2-11.7) fl Neut % (Auto) (50.0-75.0) % Lymph % (Auto) (20.0-40.0) % [place] % (Auto) (0.0-10.0) % Eos % (Auto) (0.0-4.0) % Baso % (Auto) (0.0-2.0) % Neut # (Auto) (1.8-7.0) K/uL Lymph # (Auto) (1.0-4.3) K/uL [place] # (Auto) (0.0-0.8) K/uL Eos # (Auto) (0.0-0.7) K/uL Baso # (Auto) (0.0-0.2) K/uL pCO2 49 H (35-45) mm/Hg pO2 127 H (80-100) mm/Hg HCO3 30.6 H (21-28) mmol/L ABG pH 7.43 (7.35-7.45) ABG Total CO2 34.0 H (22-28) mmol/L ABG O2 Saturation 99.4 H (95-98) % ABG O2 Content 12.9 L (15-23) ML/dL ABG Base Excess 7.2 H (-2.0-3.0) mmol/L ABG Hemoglobin 9.3 L (11.7-17.4) g/dL ABG Carboxyhemoglobin 1.1 (0.5-1.5) % POC ABG HHb (Measured) 0.6 (0.0-5.0) % ABG Methemoglobin 1.3 (0.0-3.0) % ABG O2 Capacity 13.0 L (16-24) mL/dL Roberto Test Yes A-a O2 Difference 97.0 mm/Hg Hgb O2 Saturation 97.0 (95.0-98.0) % Vent Mode A/c Mechanical Rate 12 FiO2 40.0 % Tidal Volume 450 PEEP 5 Sodium (132-148) mmol/l Potassium (3.6-5.0) MMOL/L Chloride (98-107) mmol/L Carbon Dioxide (22-30) mmol/L Anion Gap (10-20) BUN (9-20) mg/dl Creatinine (0.8-1.5) mg/dl Est GFR ( Amer) Est GFR (Non-Af Amer) POC Glucose (mg/dL) 129 H 123 H (65-110) mg/dL Random Glucose (75-110) mg/dL Calcium (8.4-10.2) mg/dL Total Bilirubin (0.2-1.3) mg/dl AST (17-59) U/L ALT (21-72) U/L Alkaline Phosphatase (38-126) U/L Total Protein (6.3-8.2) G/DL Albumin (3.5-5.0) g/dL Globulin (2.2-3.9) gm/dL Albumin/Globulin Ratio (1.0-2.1) 05//18 Range/Units 11:22 WBC (4.8-10.8) K/uL RBC (4.40-5.90) Mil/uL Hgb (12.0-18.0) g/dL Hct (35.0-51.0) % MCV (80.0-94.0) fl MCH (27.0-31.0) pg MCHC (33.0-37.0) g/dL RDW (11.5-14.5) % Plt Count (130-400) K/uL MPV (7.2-11.7) fl Neut % (Auto) (50.0-75.0) % Lymph % (Auto) (20.0-40.0) % [place] % (Auto) (0.0-10.0) % Eos % (Auto) (0.0-4.0) % Baso % (Auto) (0.0-2.0) % Neut # (Auto) (1.8-7.0) K/uL Lymph # (Auto) (1.0-4.3) K/uL [place] # (Auto) (0.0-0.8) K/uL Eos # (Auto) (0.0-0.7) K/uL Baso # (Auto) (0.0-0.2) K/uL pCO2 (35-45) mm/Hg pO2 (80-100) mm/Hg HCO3 (21-28) mmol/L ABG pH (7.35-7.45) ABG Total CO2 (22-28) mmol/L ABG O2 Saturation (95-98) % ABG O2 Content (15-23) ML/dL ABG Base Excess (-2.0-3.0) mmol/L ABG Hemoglobin (11.7-17.4) g/dL ABG Carboxyhemoglobin (0.5-1.5) % POC ABG HHb (Measured) (0.0-5.0) % ABG Methemoglobin (0.0-3.0) % ABG O2 Capacity (16-24) mL/dL Roberto Test A-a O2 Difference mm/Hg Hgb O2 Saturation (95.0-98.0) % Vent Mode Mechanical Rate FiO2 % Tidal Volume PEEP Sodium (132-148) mmol/l Potassium (3.6-5.0) MMOL/L Chloride (98-107) mmol/L Carbon Dioxide (22-30) mmol/L Anion Gap (10-20) BUN (9-20) mg/dl Creatinine (0.8-1.5) mg/dl Est GFR ( Amer) Est GFR (Non-Af Amer) POC Glucose (mg/dL) 137 H (65-110) mg/dL Random Glucose (75-110) mg/dL Calcium (8.4-10.2) mg/dL Total Bilirubin (0.2-1.3) mg/dl AST (17-59) U/L ALT (21-72) U/L Alkaline Phosphatase (38-126) U/L Total Protein (6.3-8.2) G/DL Albumin (3.5-5.0) g/dL Globulin (2.2-3.9) gm/dL Albumin/Globulin Ratio (1.0-2.1) Laboratory Results - last 24 hr 12/03/17 12/03/17 12/03/17 11:22 16:08 21:52 WBC RBC Hgb Hct MCV MCH MCHC RDW Plt Count MPV Neut % (Auto) Lymph % (Auto) [place] % (Auto) Eos % (Auto) Baso % (Auto) Neut # (Auto) Lymph # (Auto) [place] # (Auto) Eos # (Auto) Baso # (Auto) pCO2 pO2 HCO3 ABG pH ABG Total CO2 ABG O2 Saturation ABG O2 Content ABG Base Excess ABG Hemoglobin ABG Carboxyhemoglobin POC ABG HHb (Measured) ABG Methemoglobin ABG O2 Capacity Roberto Test A-a O2 Difference Hgb O2 Saturation Vent Mode Mechanical Rate FiO2 Tidal Volume PEEP Sodium Potassium Chloride Carbon Dioxide Anion Gap BUN Creatinine Est GFR ( Amer) Est GFR (Non-Af Amer) POC Glucose (mg/dL) 137 H 123 H 129 H Random Glucose Calcium Total Bilirubin AST ALT Alkaline Phosphatase Total Protein Albumin Globulin Albumin/Globulin Ratio 12/04/17 12/04/17 12/04/17 04:00 04:27 04:30 WBC 5.3 RBC 2.94 L Hgb 8.7 L Hct 27.0 L MCV 91.6 MCH 29.7 MCHC 32.4 L RDW 15.3 H Plt Count 452 H MPV 9.1 Neut % (Auto) 60.8 Lymph % (Auto) 19.4 L [place] % (Auto) 17.3 H Eos % (Auto) 1.3 Baso % (Auto) 1.2 Neut # (Auto) 3.2 Lymph # (Auto) 1.0 [place] # (Auto) 0.9 H Eos # (Auto) 0.1 Baso # (Auto) 0.1 pCO2 49 H pO2 127 H HCO3 30.6 H ABG pH 7.43 ABG Total CO2 34.0 H ABG O2 Saturation 99.4 H ABG O2 Content 12.9 L ABG Base Excess 7.2 H ABG Hemoglobin 9.3 L ABG Carboxyhemoglobin 1.1 POC ABG HHb (Measured) 0.6 ABG Methemoglobin 1.3 ABG O2 Capacity 13.0 L Roberto Test Yes A-a O2 Difference 97.0 Hgb O2 Saturation 97.0 Vent Mode A/c Mechanical Rate 12 FiO2 40.0 Tidal Volume 450 PEEP 5 Sodium Potassium Chloride Carbon Dioxide Anion Gap BUN Creatinine Est GFR ( Amer) Est GFR (Non-Af Amer) POC Glucose (mg/dL) 137 H Random Glucose Calcium Total Bilirubin AST ALT Alkaline Phosphatase Total Protein Albumin Globulin Albumin/Globulin Ratio 12/04/17 04:30 WBC RBC Hgb Hct MCV MCH MCHC RDW Plt Count MPV Neut % (Auto) Lymph % (Auto) [place] % (Auto) Eos % (Auto) Baso % (Auto) Neut # (Auto) Lymph # (Auto) [place] # (Auto) Eos # (Auto) Baso # (Auto) pCO2 pO2 HCO3 ABG pH ABG Total CO2 ABG O2 Saturation ABG O2 Content ABG Base Excess ABG Hemoglobin ABG Carboxyhemoglobin POC ABG HHb (Measured) ABG Methemoglobin ABG O2 Capacity Roberto Test A-a O2 Difference Hgb O2 Saturation Vent Mode Mechanical Rate FiO2 Tidal Volume PEEP Sodium 139 Potassium 3.8 Chloride 96 L Carbon Dioxide 32 H Anion Gap 15 BUN 17 Creatinine 0.6 L Est GFR ( Amer) > 60 Est GFR (Non-Af Amer) > 60 POC Glucose (mg/dL) Random Glucose 130 H Calcium 8.1 L Total Bilirubin 0.5 AST 87 H D ALT 53 Alkaline Phosphatase 100 Total Protein 7.0 Albumin 2.9 L Globulin 4.1 H Albumin/Globulin Ratio 0.7 L Fingerstick Blood Sugar Results: 137 Critical Care Progress Note - Nutrition Nutrition: Nutrition Category Date Time Status NPO Diet [DIET] Diets 11/15/17 Lunch Active Assessment/Plan - Assessment and Plan (Free Text) Assessment: A/P Respiratory failure, sepsis, pneumonia, pleural effusion, altered mental status , CVA, anemia - Ventilatory support - Pulmonary toilets - Continue meds - DVT prophylaxis - Poor prognosis Critical care 35 min
--- NOTE | 2017-12-04 08:02 | CP.PCM.PN ---
Subjective - Date & Time of Evaluation Date of Evaluation: 12/04/17 Time of Evaluation: 08:02 - Subjective Subjective: Mr. White was seen and examined at the bedside in ICU. He remains on mechanical ventilator on PRVC mode. His pupils are slight mydriasis 4mm bilaterally, non- reactive to light accommodation, no corneal reflex, + gag reflex, withdraws from pain stimuli, GCS-4T. There was no untoward events overnight Objective - Vital Signs/Intake and Output Vital Signs (last 24 hours): Temp Pulse Resp BP Pulse Ox 98.4 F 94 H 22 153/86 H 100 12/04/17 06:00 12/04/17 06:00 12/04/17 06:00 12/04/17 06:00 12/04/17 06:00 Intake and Output: 12/04/17 12/04/17 06:59 18:59 Intake Total 1332 Output Total 950 Balance 382 - Medications Medications: Current Medications Acetaminophen (Tylenol 650mg/20.3ml Solution Ud) 650 mg PO Q6 PRN PRN Reason: fever > 100.4 Last Admin: 11/27/17 20:31 Dose: 650 mg Aspirin (Aspirin Chewable) 81 mg NG DAILY [facility] Last Admin: 12/03/17 08:21 Dose: 81 mg Atorvastatin Calcium (Lipitor) 40 mg PO HS [facility] Last Admin: 12/03/17 21:34 Dose: 40 mg Clopidogrel Bisulfate (Plavix) 75 mg NG DAILY [facility] Last Admin: 12/03/17 08:21 Dose: 75 mg Enoxaparin Sodium (Lovenox) 40 mg SC DAILY [facility] PRN Reason: Protocol Last Admin: 12/03/17 08:21 Dose: 40 mg Famotidine (Pepcid) 40 mg PO DAILY [facility] Last Admin: 12/03/17 08:21 Dose: 40 mg Folic Acid (Folic Acid) 1 mg GT DAILY [facility] Last Admin: 12/03/17 08:21 Dose: 1 mg Piperacillin Sod/Tazobactam (Sod 3.375 gm/ Sodium Chloride) 100 mls @ 100 mls/ hr IVPB Q6 [facility] PRN Reason: Protocol Last Admin: 12/04/17 04:24 Dose: 100 mls/hr Thiamine HCl (Vitamin B1 Tab) 100 mg NG DAILY [facility] Last Admin: 12/03/17 08:21 Dose: 100 mg - Labs Labs: 12/04/17 04:30 12/04/17 04:30 PT 14.1 Seconds (9.8-13.1) H 12/01/17 09:44 INR 1.3 (0.9-1.2) H 12/01/17 09:44 APTT 34.4 Seconds (25.6-37.1) 12/01/17 09:44 - Constitutional Appears: No Acute Distress - Head Exam Head Exam: NORMAL INSPECTION - Eye Exam Pupil Exam: Fixed, Mydriatic - Neurological Exam Neuro motor strength exam: Left Upper Extremity: 0, Right Upper Extremity: 0, Left Lower Extremity: 0, Right Lower Extremity: 0 Additional comments: GCS- 4T Assessment and Plan (1) Ischemic stroke Assessment & Plan: Case discussed with Dr. Price continue all current medical regimen. Recommend to treat any abnormalities in hematology, electrolyte abnormalities, keep head of bed elevated at least 30 degrees, blood pressure and glycemic control. Status: Acute
[2017-12-04] MEDS: Enoxaparin 40 mg Syringe SC SCH (08:38)
--- NOTE | 2017-12-04 08:45 | RAD ---
HISTORY: vented COMPARISON: 12/03/2017. FINDINGS: The endotracheal tube terminates 6 cm proximal to the haresh. The nasogastric tube terminates in the stomach. The right IJV line terminates in the SVC LUNGS: The right lung is clear. There is airspace disease in the left lower lobe. There is mild pulmonary venous congestion PLEURA: Question of small layering left pleural effusion, no pneumothorax apparent. CARDIOVASCULAR: Normal. OSSEOUS STRUCTURES: No significant abnormalities. VISUALIZED UPPER ABDOMEN: Normal. OTHER FINDINGS: None. IMPRESSION: Left lower lobe atelectasis/pneumonia. Stable position of support line and tubes.
[2017-12-04] MEDS: Acetaminophen 650mg/20.3ml solution UD PO PRN (16:27)
[2017-12-05] MEDS: Piperacillin/Tazobact 3.375 GM in Sodium Chloride 0.9% 100 ML IVPB SCH ×2 (03:29→08:59)
[2017-12-05 06:07] LABS: ABG ALLEN TEST YES; ARTERIAL BLOOD GAS HCO3 31.4 mmol/L (21-28); ARTERIAL BLOOD GAS HEMOGLOBIN 10.7 g/dL (11.7-17.4); ARTERIAL BLOOD GAS O2 CAPACITY 14.9 mL/dL (16-24); ARTERIAL BLOOD GAS O2 CONTENT 14.8 ML/dL (15-23); ARTERIAL BLOOD GAS O2 SAT 99.4 % (95-98); ARTERIAL BLOOD GAS PCO2 48 mm/Hg (35-45); ARTERIAL BLOOD GAS PH 7.45 (7.35-7.45); ARTERIAL BLOOD GAS PO2 133 mm/Hg (80-100); ARTERIAL BLOOD GAS TCO2 34.9 mmol/L (22-28)
[2017-12-05 06:12] LABS: HEMOGLOBIN 10.2 g/dL (12.0-18.0); MEAN CELL VOLUME 90.3 fl (80.0-94.0); MEAN CORPUSCULAR HEMOGLOBIN 30.5 pg (27.0-31.0); MEAN CORPUSCULAR HGB CONC 33.8 g/dL (33.0-37.0); RBC 3.36 Mil/uL (4.40-5.90); RED CELL DISTRIBUTION WIDTH 15.1 % (11.5-14.5); WHITE BLOOD COUNT 6.1 K/uL (4.8-10.8)
[2017-12-05 06:22] LABS: BLOOD UREA NITROGEN 16 mg/dl (9-20); CALCIUM 8.5 mg/dL (8.4-10.2); GFR AFRICAN-AMERICAN > 60; GFR NON-AFRICAN AMERICAN > 60
--- NOTE | 2017-12-05 07:20 | CP.PCM.PN ---
Subjective - Date & Time of Evaluation Date of Evaluation: 12/05/17 Time of Evaluation: 07:20 - Subjective Subjective: pt intubated, sedated [id number] this AM, tachycardic 120s adjusting ABX per sensitivities otherwise BP stable, CT for tomorrow AM Objective - Vital Signs/Intake and Output Vital Signs (last 24 hours): Temp Pulse Resp BP Pulse Ox 98.9 F 109 H 14 138/89 100 12/05/17 06:00 12/05/17 06:00 12/05/17 06:00 12/05/17 06:00 12/05/17 06:00 Intake and Output: 12/05/17 12/05/17 06:59 18:59 Intake Total 1338 Output Total 2505 Balance -1167 EXAM: Vitals reviewed GEN: intubated, sedated HEENT: NCAT, pupils equal Neck: supple, no lymphadenopathy CARDIO: +S1S2, RRR, NO M/R/G LUNG: CTAB, NO W/R/R ABD: soft, ND, no masses, no HSM EXT: +edema, reflexes intact Neuro: +gag reflex, otherwise unresponsive Psych: unable to assess - Medications Medications: Current Medications Acetaminophen (Tylenol 650mg/20.3ml Solution Ud) 650 mg PO Q6 PRN PRN Reason: fever > 100.4 Last Admin: 12/04/17 16:27 Dose: 650 mg Aspirin (Aspirin Chewable) 81 mg NG DAILY [facility] Last Admin: 12/04/17 08:38 Dose: 81 mg Atorvastatin Calcium (Lipitor) 40 mg PO HS [facility] Last Admin: 12/04/17 21:30 Dose: 40 mg Clopidogrel Bisulfate (Plavix) 75 mg NG DAILY [facility] Last Admin: 12/04/17 08:39 Dose: 75 mg Enoxaparin Sodium (Lovenox) 40 mg SC DAILY [facility] PRN Reason: Protocol Last Admin: 12/04/17 08:38 Dose: 40 mg Famotidine (Pepcid) 40 mg PO DAILY [facility] Last Admin: 12/04/17 08:39 Dose: 40 mg Folic Acid (Folic Acid) 1 mg GT DAILY [facility] Last Admin: 12/04/17 08:38 Dose: 1 mg Piperacillin Sod/Tazobactam (Sod 3.375 gm/ Sodium Chloride) 100 mls @ 100 mls/ hr IVPB Q6 [facility] PRN Reason: Protocol Last Admin: 12/05/17 03:29 Dose: 100 mls/hr Thiamine HCl (Vitamin B1 Tab) 100 mg NG DAILY [facility] Last Admin: 12/04/17 08:39 Dose: 100 mg - Labs Labs: 12/05/17 04:30 12/05/17 04:30 PT 14.1 Seconds (9.8-13.1) H 12/01/17 09:44 INR 1.3 (0.9-1.2) H 12/01/17 09:44 APTT 34.4 Seconds (25.6-37.1) 12/01/17 09:44 Assessment and Plan - Assessment and Plan (Free Text) Plan: White male , Tez White , unkempt, unknown PMH was brought by EMS after he was observed by bystanders falling in the street. Patient was lethargic on admission however arousable , noted to have a facial droop and his speech was slurred. CT of head : Moderate to significant diffuse/confluent chronic white matter ischemic changes seen extending from the periventricular into the subcortical regions bilaterally. Changes are most pronounced in the parietal lobes. In addition, there are scattered chronic bilateral basal nuclei lacunar type infarcts. Small lacunar type infarcts also seen both cerebellar hemispheres. Note that the possibility of a small hyperacute infarct cannot be excluded on this study. Clinical correlation recommended. Marked dilatation of the atria and occipital horns possibly secondary to central volume loss on which is above most pronounced in the temporal occipital and parietal watershed zone regions On 11/16 noted to be obtunded ,unable to clear his secretions, tachypneic and saturation in the 80%. He was transferred to ICU and intubated for airway protection. Repeat CT of head showed no change. MRI showed pontine, midbrain , cerebellar hemispheres and thalami infarct. 11/22: With episode of vomiting and possible aspiration became hypotensive, tachycardic, febrile, hypoxemic Repeat CT head 11/28 showed :Gross edematous changes affect cerebellar hemispheres bilaterally sparing only the inferior margins somewhat and causing compression on the the mid to lower brainstem. The 4th ventricle is partially effaced but no obstructive hydrocephalus appreciated at this time. Edema has extend into the bilateral thalami, right greater than left further indicative of expanding infarction. No intracranial hemorrhage. Ethics Committee meeting - rec Emergency guardianship , application in progress. 5/25: Given pt's poor prognosis, in my medical opinion , if patient goes into Cardiac Arrest, doing CPR would be medically futile. Discussed with Phone Circuit Operator - Dr Montejo who agrees. At this point, a Do not Escalate treatment would be more appropriate. As per discussion with rest of hospitalist team, we will await application Emergency Guardianship application. 12/05: developed fever 101, no WBC, tachycardia. Abx changed from Zosyn to Cipro 2/2 sensitivities. Strep Viridans in Urine treated with 2 weeks course of Zosyn and Vanco as well. Cipro day 1: 12/05. Repeat blood and urine cx. 1. Sepsis due to Aspiration Pneumonia Intubated on Vent (PVRC/AC 12/450/5/60%) BP improved, off levophed drip , afebrile , WBC trended down to normal 10 K procalcitonin was elevated 79 trachea aspirate: positive for Citrobacter D/C Zosyn, as repeat sensitivities - Zosyn = I. Completed Vanco treatment ID consulted : Dr. Anderson Keep HOB elevated , aspiration, precautions,respiratory toilet with frequent suctioning 12/02 : rpt Sputum /Trach asp c/s: Gram neg rods, Rpt CXR : improving aeration , left, stable pleural effusion 2. Acute CVA Patient is comatose at present , noticed slight withdrawal to painful stimuli , pupils nonreactive MRI brain showed pontine , midbrain, cerebellar hemispheres and thalamic infarct Neurology on consult Repeat CT of head 11/28 showed :Gross edematous changes affect cerebellar hemispheres bilaterally sparing only the inferior margins somewhat and causing compression on the the mid to lower brainstem. The 4th ventricle is partially effaced but no obstructive hydrocephalus appreciated at this time. Edema has extend into the bilateral thalami, right greater than left further indicative of expanding infarction. No intracranial hemorrhage. Placed on Hypertonic Saline to keep Na at least 145 Poor Prognosis Continue ASA, Statin, Plavix Sharing network has been notified Ethics Committee met -rec application for emergency guardianship 3. UTI urine cx positive for Strep viridans received Vanco IV 4. ? Alcoholism unclear if alcoholic, cannot obtain hx however ED note stated that patient has history of ETOH ETOH level low urine Tox : neg Thiamine and FA DVT prophylaxis Acute Lovenox
[2017-12-05] MEDS: Enoxaparin 40 mg Syringe SC SCH (08:28)
--- NOTE | 2017-12-05 08:41 | RAD ---
HISTORY: vented COMPARISON: 12/04/2017. FINDINGS: The right IJV line terminates at the cavoatrial junction. The nasogastric tube terminates in the stomach. The endotracheal tube terminates 6 cm proximal to the haresh. LUNGS: The lungs are well inflated. There is mild pulmonary venous congestion. No focal consolidation. PLEURA: No significant pleural effusion identified, no pneumothorax apparent. CARDIOVASCULAR: Normal. OSSEOUS STRUCTURES: No significant abnormalities. VISUALIZED UPPER ABDOMEN: Normal. OTHER FINDINGS: None. IMPRESSION: No acute findings. Stable position of support line and tubes.
[2017-12-05] MEDS: Acetaminophen 650mg/20.3ml solution UD PO PRN (09:29)
[2017-12-05] MEDS: Ciprofloxacin 400mg/200ml D5W 400 MG/200 ML BAG IVPB SCH ×2 (13:33→21:10)
--- NOTE | 2017-12-05 21:33 | PN ---
CRITICAL CARE PROGRESS NOTE DATE: 12/05/2017 LOCATION: The patient in ICU, bed 435. TIME SPENT: 35 minutes. SUBJECTIVE: The patient is seen and evaluated at the bedside. Events since admission reviewed. Overnight, telemetry sinus rhythm, normotensive, intubated on mechanical ventilation on AC/PRBC rate 12, tidal volume 450, and FiO2 of 40%. No sedation. Observed rate 16. Observed tidal volume 530, minute ventilation 7.6 L, saturation 100%, mean peak airway pressure of 14, and end-tidal CO2 of 44. OBJECTIVE: HEAD, EYES, EARS, NOSE AND THROAT: Atraumatic and normocephalic. Pupils 3-4 mm midline, nonreactive. No corneal reflex. No conjunctival reflex. Gag reflex on manipulation of the endotracheal tube present, but mild and response to painful stimuli by decorticating. CHEST: Bilateral breath sounds, clear to auscultation anteriorly and laterally. HEART: Rhythm regular. S1 and S2 normal. ABDOMEN: Bowel sounds present and soft. OG tube in place. EXTREMITIES: No clubbing or cyanosis. 1+ edema. DP palpable. NEUROLOGIC: As noted, minimally responsive to painful stimuli/decorticating. LABORATORY DATA: WBC 6.1, hemoglobin 10.2, hematocrit 30.3, and platelet count 521. PT 14.1, INR 1.3, and PTT 34.4. ABG; pH of 7.45, pCO2 of 48, pO2 of 133, and saturation 99.4%. SMA-7; sodium 140, potassium 4.1, chloride 96, CO2 of 33, blood urea nitrogen 16, creatinine 0.6, random glucose 132, and calcium 8.5. Urinalysis; RBC 18 and microscopic WBC 2. Drug screen negative. Serology; HIV negative. Microbiology, sputum culture positive for Citrobacter diversus. Blood culture, no growth reported. Chest x-ray done this morning, endotracheal tube in place. No pneumothorax, no pleural effusion, stable position of all_ lines and the tubes. IMPRESSION AND PLAN: 1. Neurologic: Remains comatose, pupils midline 3-4 mm, and nonreactive. No corneal reflex. Minimal gag reflex, response to painful stimuli by decorticating. Repeat CT head pending. Appreciate Neurology followup. 2. Pulmonary: Intubated on mechanical ventilation for airway protection, left basilar atelectasis and effusion unremarkable, suspected aspiration pneumonia, on antibiotic. Sputum culture positive for Citrobacter, sensitive to current antibiotics. 3. Cardiac: Remains normotensive. Telemetry, no sinus arrhythmias. 4. Hematology: Leukocytosis trending down. Hemoglobin and hematocrit stable. No active gastrointestinal bleeding. 5. Renal. BUN and creatinine stable at BUN 16 and creatinine 0.6. 6. Gastrointestinal: No acute issues. Tolerating p.o. feeding. Keep the head of bed 30 [address] up. [address] in place to frequent change of position, deep venous thrombosis and gastrointestinal prophylaxis. Prognosis remains guarded. Raul Finn MD MTDD
[2017-12-06 06:03] LABS: ABG ALLEN TEST YES; ARTERIAL BLOOD GAS HCO3 33.6 mmol/L (21-28); ARTERIAL BLOOD GAS HEMOGLOBIN 11.2 g/dL (11.7-17.4); ARTERIAL BLOOD GAS O2 CAPACITY 15.5 mL/dL (16-24); ARTERIAL BLOOD GAS O2 CONTENT 15.4 ML/dL (15-23); ARTERIAL BLOOD GAS O2 SAT 99.4 % (95-98); ARTERIAL BLOOD GAS PCO2 53 mm/Hg (35-45); ARTERIAL BLOOD GAS PH 7.45 (7.35-7.45); ARTERIAL BLOOD GAS PO2 119 mm/Hg (80-100); ARTERIAL BLOOD GAS TCO2 38.4 mmol/L (22-28)
[2017-12-06 06:21] LABS: BASO # 0.1 K/uL (0.0-0.2); EOS # 0.1 K/uL (0.0-0.7); EOS % 1.3 % (0.0-4.0); HEMOGLOBIN 11.2 g/dL (12.0-18.0); LYMPH # 1.6 K/uL (1.0-4.3); LYMPH % 18.9 % (20.0-40.0); MEAN CELL VOLUME 90.9 fl (80.0-94.0); MEAN CORPUSCULAR HEMOGLOBIN 29.9 pg (27.0-31.0); MEAN CORPUSCULAR HGB CONC 32.9 g/dL (33.0-37.0); MEAN PLATELET VOLUME 8.7 fl (7.2-11.7); MONO # 1.4 K/uL (0.0-0.8); MONO % 16.1 % (0.0-10.0); NEUT # 5.4 K/uL (1.8-7.0); NEUT % 62.7 % (50.0-75.0); RBC 3.76 Mil/uL (4.40-5.90); RED CELL DISTRIBUTION WIDTH 15.3 % (11.5-14.5); WHITE BLOOD COUNT 8.6 K/uL (4.8-10.8)
[2017-12-06 06:45] LABS: ALB/GLOB RATIO 0.6 (1.0-2.1); ALBUMIN 3.3 g/dL (3.5-5.0); ALT/SGPT 46 U/L (21-72); AST/SGOT 75 U/L (17-59); BLOOD UREA NITROGEN 19 mg/dl (9-20); CALCIUM 8.6 mg/dL (8.4-10.2); GFR AFRICAN-AMERICAN > 60; GFR NON-AFRICAN AMERICAN > 60
[2017-12-06] MEDS: Enoxaparin 40 mg Syringe SC SCH (08:27)
[2017-12-06] MEDS: Ciprofloxacin 400mg/200ml D5W 400 MG/200 ML BAG IVPB SCH ×2 (08:29→21:19)
--- NOTE | 2017-12-06 08:31 | RAD ---
HISTORY: ETT placement COMPARISON: 12/05/2017. FINDINGS: The endotracheal tube is high in position and terminates 8.2 cm proximal to the haresh. The nasogastric tube terminates in the stomach. The right IJV line terminates at the cavoatrial junction. LUNGS: The lungs are well inflated and clear. No focal consolidation. PLEURA: No significant pleural effusion identified, no pneumothorax apparent. CARDIOVASCULAR: Normal. OSSEOUS STRUCTURES: No significant abnormalities. VISUALIZED UPPER ABDOMEN: Normal. OTHER FINDINGS: None. IMPRESSION: High position of endotracheal tube terminating at the thoracic inlet. Stable position of right IJV line and nasogastric tube. No acute findings.
--- NOTE | 2017-12-06 09:32 | CP.CCUPN ---
CCU Subjective - Physician Review Events Since Last Encounter (Free Text): 12/06/17 14:46 The patient was Seen and examined by me at the bedside during ICU round, Medical records reviewed and Management issues were discussed and formulated with the house staff. Events reviewed Pt remains orally intubated and mechanically ventilated. PRVC AC12 TV450 FiO2 40 % PEEP5. Remains febrile overnight, Tmx 101.7 F. BP stable. NSR on the monitor Comatosed, no improvement of mental status, unresponsive to painful stimuli. Pupils remain fixed and dilated, No corneal reflex identified. Gag reflex intact. Scheduled for repeat head CT scan today Pt off antibiotics, completed a course of Vanco and Zosyn 12/02; Sputum C/S positive Citrobacter Diversus 12/05; Urine C/S no growth (11/16: Urine C/S positive for gram positive Cocci ) 12/05; Blood C/S with no growth Last 24H I&O 2864/2300 This morning labs revealed No Leucocytosis, Stable renal function. 12/06/17 14:53 12/06/2017: CT HEAD WITHOUT CONTRAST. IMPRESSION: No acute intracranial abnormality little interval change in presumable ischemic injury to the thalami, worse on the right, brainstem including cerebral peduncles and bilateral cerebellar hemispheres. No evidence of hydrocephalus or herniation. CCU Objective - Vital Signs / Intake & Output Vital Signs (Last 4 hours): Vital Signs Temp Pulse Resp BP Pulse Ox 12/06/17 08:00 99.0 F 107 H 15 126/79 97 12/06/17 06:00 105 H 16 147/92 H 97 Intake and Output (Last 8hrs): Intake & Output 12/05/17 12/06/17 12/06/17 22:59 06:59 14:59 Intake Total 1484 780 Output Total 1300 1000 Balance 184 -220 Intake: IV 24 Intake, Piggyback 200 Tube Feeding 960 480 Free Water Flush 300 300 Output: Urine 1300 1000 2-way Urethral 1300 1000 - Physical Exam Head: Positive for: Atraumatic, Normocephalic. Negative for: Ecchymosis, Abrasion, Laceration Pupils: Positive for: Non-Reactive, Other (midline, +corneal reflex, approx 4mm ). Negative for: PERRL Extroacular Muscles: Negative for: EOMI, Gaze Palsy Conjunctiva: Positive for: Normal. Negative for: Injected, Icteric Ears: Positive for: Normal Mouth: Positive for: Dry Pharnyx: Positive for: Normal. Negative for: ERYTHEMA, EXUDATE, TONSILS ENLARGED Neck: Positive for: Normal Range of Motion, Trachea Midline, Other (R. IJ line) . Negative for: Meningeal Signs, JVD, Lymphadenopathy Respiratory/Chest: Positive for: Good Air Exchange. Negative for: Clear to Auscultation (gugrling sounds, distant breath sounds b/l), Respiratory Distress , Decreased Breath Sounds, Rales, Retracting, Rhonchi, Tachypneic, Tender to Palpation Cardiovascular: Positive for: Normal S1, S2, Peripheal Pulses Present (present but faint ), Tachycardic. Negative for: Regular Rate and Rhythm, Murmurs, Irregular Rhythm, Rub, Gallop, Muffled Abdomen: Positive for: Normal Bowel Sounds. Negative for: Tenderness, Distention, Peritoneal Signs Upper Extremity: Positive for: Normal Inspection, Capillary Refill < 2s. Negative for: Cyanosis, Edema Lower Extremity: Positive for: Normal Inspection, NORMAL PULSES, Cyanosis, Neurovascularly Intact, Capillary Refill < 2 s. Negative for: Edema, CALF TENDERNESS, Swelling, Erythema, Temperature Abnormalties Neurological: Positive for: Other (intermittent decerebrate posturing, less frequent today. ). Negative for: GCS=15 (GCS: 4T), CN II-XII Intact, Speech Normal (unable to evaluate ), Motor Func Grossly Intact, Normal Sensory Function , Normal Cerebellar Funct, Norm Deep Tendon Reflexes (diminished) Skin: Positive for: Dry, Cold (extremities ), Other (mottled ). Negative for: Normal Color (vitiligo?, chronic skin changes from weather exposure and recurrent friction/trauma ), Laceration Lymphatic: Negative for: Cervical Adenopathy Psychiatric: Positive for: Other (comatose). Negative for: Alert, Oriented x 3 , Normal Insight, Normal Concentration - Medications Active Medications: Active Medications Generic Name Dose Route Start Last Admin Trade Name Freq PRN Reason Stop Dose Admin Acetaminophen 650 mg 11/27/17 00:56 12/05/17 09:29 Tylenol 650mg/20.3ml Solution Ud PO 650 mg Q6 PRN Administration fever > 100.4 Aspirin 81 mg 11/19/17 09:00 12/06/17 08:28 Aspirin Chewable NG 81 mg DAILY ZIA Administration Atorvastatin Calcium 40 mg 11/17/17 22:00 12/05/17 21:10 Lipitor PO 40 mg HS ZIA Administration Clopidogrel Bisulfate 75 mg 11/18/17 09:45 12/06/17 08:28 Plavix NG 75 mg DAILY ZIA Administration Enoxaparin Sodium 40 mg 11/28/17 09:00 12/06/17 08:27 Lovenox SC 40 mg DAILY ZIA Administration Protocol Famotidine 40 mg 12/02/17 09:00 12/06/17 08:28 Pepcid PO 40 mg DAILY ZIA Administration Folic Acid 1 mg 11/17/17 09:00 12/06/17 08:27 Folic Acid GT 1 mg DAILY ZIA Administration Ciprofloxacin 400 mg in 200 mls @ 200 mls/hr 12/05/17 12:00 12/06/17 08:29 Cipro 400mg/200ml Dsw IVPB 200 mls/hr Q12 ZIA Administration Protocol Thiamine HCl 100 mg 11/17/17 13:45 12/06/17 08:28 Vitamin B1 Tab NG 100 mg DAILY ZIA Administration - Patient Studies Lab Studies: Lab Studies 12/06/17 12/06/17 12/06/17 Range/Units 06:00 06:00 05:34 WBC 8.6 (4.8-10.8) K/uL RBC 3.76 L (4.40-5.90) Mil/uL Hgb 11.2 L (12.0-18.0) g/dL Hct 34.1 L (35.0-51.0) % MCV 90.9 (80.0-94.0) fl MCH 29.9 (27.0-31.0) pg MCHC 32.9 L (33.0-37.0) g/dL RDW 15.3 H (11.5-14.5) % Plt Count 546 H (130-400) K/uL MPV 8.7 (7.2-11.7) fl Neut % (Auto) 62.7 (50.0-75.0) % Lymph % (Auto) 18.9 L (20.0-40.0) % Worth % (Auto) 16.1 H (0.0-10.0) % Eos % (Auto) 1.3 (0.0-4.0) % Baso % (Auto) 1.0 (0.0-2.0) % Neut # (Auto) 5.4 (1.8-7.0) K/uL Lymph # (Auto) 1.6 (1.0-4.3) K/uL Worth # (Auto) 1.4 H (0.0-0.8) K/uL Eos # (Auto) 0.1 (0.0-0.7) K/uL Baso # (Auto) 0.1 (0.0-0.2) K/uL pCO2 53 H (35-45) mm/Hg pO2 119 H (80-100) mm/Hg HCO3 33.6 H (21-28) mmol/L ABG pH 7.45 (7.35-7.45) ABG Total CO2 38.4 H (22-28) mmol/L ABG O2 Saturation 99.4 H (95-98) % ABG O2 Content 15.4 (15-23) ML/dL ABG Base Excess 11.1 H (-2.0-3.0) mmol/L ABG Hemoglobin 11.2 L (11.7-17.4) g/dL ABG Carboxyhemoglobin 1.6 H (0.5-1.5) % POC ABG HHb (Measured) 0.6 (0.0-5.0) % ABG Methemoglobin 1.1 (0.0-3.0) % ABG O2 Capacity 15.5 L (16-24) mL/dL Roberto Test Yes A-a O2 Difference 100.0 mm/Hg Hgb O2 Saturation 96.6 (95.0-98.0) % Vent Mode Prvc ac Mechanical Rate 12 FiO2 40.0 % Tidal Volume 450 PEEP 5 Sodium 136 (132-148) mmol/l Potassium 4.2 (3.6-5.0) MMOL/L Chloride 92 L (98-107) mmol/L Carbon Dioxide 36 H (22-30) mmol/L Anion Gap 12 (10-20) BUN 19 (9-20) mg/dl Creatinine 0.6 L (0.8-1.5) mg/dl Est GFR ( Amer) > 60 Est GFR (Non-Af Amer) > 60 POC Glucose (mg/dL) (65-110) mg/dL Random Glucose 158 H (75-110) mg/dL Calcium 8.6 (8.4-10.2) mg/dL Total Bilirubin 0.5 (0.2-1.3) mg/dl AST 75 H (17-59) U/L ALT 46 (21-72) U/L Alkaline Phosphatase 127 H D (38-126) U/L Total Protein 8.5 H (6.3-8.2) G/DL Albumin 3.3 L (3.5-5.0) g/dL Globulin 5.2 H (2.2-3.9) gm/dL Albumin/Globulin Ratio 0.6 L (1.0-2.1) 12/05/17 12/05/17 12/05/17 Range/Units 21:08 16:33 11:02 WBC (4.8-10.8) K/uL RBC (4.40-5.90) Mil/uL Hgb (12.0-18.0) g/dL Hct (35.0-51.0) % MCV (80.0-94.0) fl MCH (27.0-31.0) pg MCHC (33.0-37.0) g/dL RDW (11.5-14.5) % Plt Count (130-400) K/uL MPV (7.2-11.7) fl Neut % (Auto) (50.0-75.0) % Lymph % (Auto) (20.0-40.0) % Worth % (Auto) (0.0-10.0) % Eos % (Auto) (0.0-4.0) % Baso % (Auto) (0.0-2.0) % Neut # (Auto) (1.8-7.0) K/uL Lymph # (Auto) (1.0-4.3) K/uL Worth # (Auto) (0.0-0.8) K/uL Eos # (Auto) (0.0-0.7) K/uL Baso # (Auto) (0.0-0.2) K/uL pCO2 (35-45) mm/Hg pO2 (80-100) mm/Hg HCO3 (21-28) mmol/L ABG pH (7.35-7.45) ABG Total CO2 (22-28) mmol/L ABG O2 Saturation (95-98) % ABG O2 Content (15-23) ML/dL ABG Base Excess (-2.0-3.0) mmol/L ABG Hemoglobin (11.7-17.4) g/dL ABG Carboxyhemoglobin (0.5-1.5) % POC ABG HHb (Measured) (0.0-5.0) % ABG Methemoglobin (0.0-3.0) % ABG O2 Capacity (16-24) mL/dL Roberto Test A-a O2 Difference mm/Hg Hgb O2 Saturation (95.0-98.0) % Vent Mode Mechanical Rate FiO2 % Tidal Volume PEEP Sodium (132-148) mmol/l Potassium (3.6-5.0) MMOL/L Chloride (98-107) mmol/L Carbon Dioxide (22-30) mmol/L Anion Gap (10-20) BUN (9-20) mg/dl Creatinine (0.8-1.5) mg/dl Est GFR ( Amer) Est GFR (Non-Af Amer) POC Glucose (mg/dL) 137 H 150 H 143 H (65-110) mg/dL Random Glucose (75-110) mg/dL Calcium (8.4-10.2) mg/dL Total Bilirubin (0.2-1.3) mg/dl AST (17-59) U/L ALT (21-72) U/L Alkaline Phosphatase (38-126) U/L Total Protein (6.3-8.2) G/DL Albumin (3.5-5.0) g/dL Globulin (2.2-3.9) gm/dL Albumin/Globulin Ratio (1.0-2.1) Laboratory Results - last 24 hr 12/05/17 12/05/17 12/05/17 11:02 16:33 21:08 WBC RBC Hgb Hct MCV MCH MCHC RDW Plt Count MPV Neut % (Auto) Lymph % (Auto) Worth % (Auto) Eos % (Auto) Baso % (Auto) Neut # (Auto) Lymph # (Auto) Worth # (Auto) Eos # (Auto) Baso # (Auto) pCO2 pO2 HCO3 ABG pH ABG Total CO2 ABG O2 Saturation ABG O2 Content ABG Base Excess ABG Hemoglobin ABG Carboxyhemoglobin POC ABG HHb (Measured) ABG Methemoglobin ABG O2 Capacity Roberto Test A-a O2 Difference Hgb O2 Saturation Vent Mode Mechanical Rate FiO2 Tidal Volume PEEP Sodium Potassium Chloride Carbon Dioxide Anion Gap BUN Creatinine Est GFR ( Amer) Est GFR (Non-Af Amer) POC Glucose (mg/dL) 143 H 150 H 137 H Random Glucose Calcium Total Bilirubin AST ALT Alkaline Phosphatase Total Protein Albumin Globulin Albumin/Globulin Ratio 12/06/17 12/06/17 12/06/17 05:34 06:00 06:00 WBC 8.6 RBC 3.76 L Hgb 11.2 L Hct 34.1 L MCV 90.9 MCH 29.9 MCHC 32.9 L RDW 15.3 H Plt Count 546 H MPV 8.7 Neut % (Auto) 62.7 Lymph % (Auto) 18.9 L Worth % (Auto) 16.1 H Eos % (Auto) 1.3 Baso % (Auto) 1.0 Neut # (Auto) 5.4 Lymph # (Auto) 1.6 Worth # (Auto) 1.4 H Eos # (Auto) 0.1 Baso # (Auto) 0.1 pCO2 53 H pO2 119 H HCO3 33.6 H ABG pH 7.45 ABG Total CO2 38.4 H ABG O2 Saturation 99.4 H ABG O2 Content 15.4 ABG Base Excess 11.1 H ABG Hemoglobin 11.2 L ABG Carboxyhemoglobin 1.6 H POC ABG HHb (Measured) 0.6 ABG Methemoglobin 1.1 ABG O2 Capacity 15.5 L Roberto Test Yes A-a O2 Difference 100.0 Hgb O2 Saturation 96.6 Vent Mode Prvc ac Mechanical Rate 12 FiO2 40.0 Tidal Volume 450 PEEP 5 Sodium 136 Potassium 4.2 Chloride 92 L Carbon Dioxide 36 H Anion Gap 12 BUN 19 Creatinine 0.6 L Est GFR ( Amer) > 60 Est GFR (Non-Af Amer) > 60 POC Glucose (mg/dL) Random Glucose 158 H Calcium 8.6 Total Bilirubin 0.5 AST 75 H ALT 46 Alkaline Phosphatase 127 H D Total Protein 8.5 H Albumin 3.3 L Globulin 5.2 H Albumin/Globulin Ratio 0.6 L Fingerstick Blood Sugar Results: 158 Review of Systems - Review of Systems Systems not reviewed;Unavailable: Intubated Critical Care Progress Note - Ventilator Checklist Head of Bed 30 Degrees: Yes Daily Sedation Vacation: Yes Daily Assessment of Readiness to Wean: Yes Daily Spontaneous Breathing Trial: Yes PUD Prophalyxis: Yes DVT Prophylaxis: Yes Oral Care with Chlorhexidine Gluconate {CHG}: Yes - Extremities/Vascular Does the Patient have a Central Venous Catheter?: Yes Does the Patient have a Holloway Catheter?: Yes Does the Patient need a Holloway Catheter?: Yes - Nutrition Nutrition: Nutrition Category Date Time Status NPO Diet [DIET] Diets 11/15/17 Lunch Active Assessment/Plan (1) Acute respiratory insufficiency Current Visit: Yes Status: Acute Comment: Patient intubated for airway protection, due to Altered Level of consciousness Not a candidate for Vent weaning dur to poor mental status Aggressive pulmonary toilet Maintain aspiration precautions (2) Ischemic stroke Current Visit: Yes Status: Acute Comment: 11/21/2017: CT HEAD WITHOUT CONTRAST. IMPRESSION: Evolution of brain infarction is identified partially obscured at the brainstem and more obvious at the bilateral cerebral peduncle as well as small foci at both cerebellar hemispheres as discussed above. No intracranial hemorrhage or significant mass appreciable this at this time. Reiteration of age related neuro degenerative changes. (3) Severe sepsis Current Visit: Yes Status: Acute Priority: High Comment: Pt off antibiotics, completed a course of Vanco and Zosyn 12/02; Sputum C/S positive Citrobacter Diversus 12/05; Urine C/S no growth (11/16: Urine C/S positive for gram positive Cocci ) 12/05; Blood C/S with no growth Last 24H I&O 2864/2300 This morning labs revealed No Leucocytosis, Stable renal function. (4) Acute metabolic encephalopathy Current Visit: Yes Status: Acute Priority: High Comment: Pt Comatosed, no improvement of mental status
--- NOTE | 2017-12-06 10:06 | CT ---
PROCEDURE: CT HEAD WITHOUT CONTRAST. HISTORY: follow up intracranial edema COMPARISON: 11/28/2017. TECHNIQUE: Axial computed tomography images were obtained through the head/brain without intravenous contrast. Radiation dose: Total exam DLP = 966.57 mGy-cm. This CT exam was performed using one or more of the following dose reduction techniques: Automated exposure control, adjustment of the mA and/or kV according to patient size, and/or use of iterative reconstruction technique. FINDINGS: HEMORRHAGE: No intracranial hemorrhage. BRAIN: Since the prior examination, there has been no significant interval change in extensive multifocal hypodense areas in bilateral cerebellar hemispheres, brainstem including the cerebral peduncles and bilateral thalami, worse on the right. There are old lacunar infarctions in bilateral basal ganglia. There are moderate chronic microangiopathic changes. There is no mass, mass effect or abnormal extra-axial fluid collection. VENTRICLES: There is moderate age-related global parenchymal volume loss and proportionate enlargement of the ventricles and cortical sulci. CALVARIUM: The skull base and calvarium are normal. There is an old fracture deformity in the left lamina papyracea. PARANASAL SINUSES: Predominantly clear. MASTOID AIR CELLS: Predominantly clear. OTHER FINDINGS: None. IMPRESSION: No acute intracranial abnormality little interval change in presumable ischemic injury to the thalami, worse on the right, brainstem including cerebral peduncles and bilateral cerebellar hemispheres. No evidence of hydrocephalus or herniation.
--- NOTE | 2017-12-06 12:27 | CP.PCM.PN ---
Subjective - Date & Time of Evaluation Date of Evaluation: 12/06/17 Time of Evaluation: 11:00 - Subjective Subjective: Pt remains intubated , on [facility] Vent - PRVC/AC 06/4500/5/40% Febrile Does not respond even to deep pain. No Pupillary reflex, no gag reflex Breaths over the Vent Tolerating tube feeding at 60ml/hr Good urine output Objective - Vital Signs/Intake and Output Vital Signs (last 24 hours): Temp Pulse Resp BP Pulse Ox 99.0 F 118 H 15 120/81 100 12/06/17 12:00 12/06/17 12:00 12/06/17 12:00 12/06/17 12:00 12/06/17 12:00 Intake and Output: 12/06/17 12/06/17 06:59 18:59 Intake Total 1370 530 Output Total 1000 Balance 370 530 - Medications Medications: Current Medications Acetaminophen (Tylenol 650mg/20.3ml Solution Ud) 650 mg PO Q6 PRN PRN Reason: fever > 100.4 Last Admin: 12/05/17 09:29 Dose: 650 mg Aspirin (Aspirin Chewable) 81 mg NG DAILY [facility] Last Admin: 12/06/17 08:28 Dose: 81 mg Atorvastatin Calcium (Lipitor) 40 mg PO HS [facility] Last Admin: 12/05/17 21:10 Dose: 40 mg Clopidogrel Bisulfate (Plavix) 75 mg NG DAILY [facility] Last Admin: 12/06/17 08:28 Dose: 75 mg Enoxaparin Sodium (Lovenox) 40 mg SC DAILY [facility] PRN Reason: Protocol Last Admin: 12/06/17 08:27 Dose: 40 mg Famotidine (Pepcid) 40 mg PO DAILY [facility] Last Admin: 12/06/17 08:28 Dose: 40 mg Folic Acid (Folic Acid) 1 mg GT DAILY [facility] Last Admin: 12/06/17 08:27 Dose: 1 mg Ciprofloxacin (Cipro 400mg/200ml Dsw) 400 mg in 200 mls @ 200 mls/hr IVPB Q12 [facility] PRN Reason: Protocol Last Admin: 12/06/17 08:29 Dose: 200 mls/hr Thiamine HCl (Vitamin B1 Tab) 100 mg NG DAILY [facility] Last Admin: 12/06/17 08:28 Dose: 100 mg - Labs Labs: 12/06/17 06:00 12/06/17 06:00 PT 14.1 Seconds (9.8-13.1) H 12/01/17 09:44 INR 1.3 (0.9-1.2) H 12/01/17 09:44 APTT 34.4 Seconds (25.6-37.1) 12/01/17 09:44 - Constitutional Appears: chronically ill, Intubated on Vent (PVRC/AC 40% FiO2) - Head Exam Head Exam: NORMAL INSPECTION, NORMOCEPHALIC - Eye Exam Eye Exam: Pupil Exam: Fixed, 4mm, not reactive to light - ENT Exam ENT Exam: Mucous Membranes Dry, Normal External Ear Exam - Neck Exam Neck Exam: absent: Meningismus - Respiratory Exam Respiratory Exam: Rhonchi, coarse rales Additional comments: Intubated on Vent - Cardiovascular Exam Cardiovascular Exam: REGULAR RHYTHM, +S1, +S2 - GI/Abdominal Exam GI & Abdominal Exam: Soft, Normal Bowel Sounds OGT in place - Extremities Exam Extremities Exam: Pedal Edema, edematous upper ext - Neurological Exam Additional comments: unresponsive even to pain fixed pupils no gag reflex breathes over the Vent Assessment and Plan (1) Acute CVA (cerebrovascular accident) Status: Acute (2) Altered mental status Status: Acute (3) Slurring of speech Status: Acute (4) HTN (hypertension) Status: Chronic (5) Acute metabolic encephalopathy Status: Acute (6) Acute respiratory insufficiency Status: Acute (7) DVT prophylaxis Status: Acute - Assessment and Plan (Free Text) Assessment: White male , Tez White , unkempt, unknown PMH was brought by EMS after he was observed by bystanders falling in the street. Patient was lethargic on admission however arousable , noted to have a facial droop and his speech was slurred. CT of head : Moderate to significant diffuse/confluent chronic white matter ischemic changes seen extending from the periventricular into the subcortical regions bilaterally. Changes are most pronounced in the parietal lobes. In addition, there are scattered chronic bilateral basal nuclei lacunar type infarcts. Small lacunar type infarcts also seen both cerebellar hemispheres. Note that the possibility of a small hyperacute infarct cannot be excluded on this study. Clinical correlation recommended. Marked dilatation of the atria and occipital horns possibly secondary to central volume loss on which is above most pronounced in the temporal occipital and parietal watershed zone regions On 5/9 noted to be obtunded ,unable to clear his secretions, tachypneic and saturation in the 80%. He was transferred to ICU and intubated for airway protection. Repeat CT of head showed no change. MRI showed pontine, midbrain , cerebellar hemispheres and thalami infarct. 11/22: With episode of vomiting and possible aspiration became hypotensive, tachycardic, febrile, hypoxemic Repeat CT head 11/28 showed :Gross edematous changes affect cerebellar hemispheres bilaterally sparing only the inferior margins somewhat and causing compression on the the mid to lower brainstem. The 4th ventricle is partially effaced but no obstructive hydrocephalus appreciated at this time. Edema has extend into the bilateral thalami, right greater than left further indicative of expanding infarction. No intracranial hemorrhage. Ethics Committee meeting - rec Emergency guardianship , application in progress. 12/02: Given pt's poor prognosis, in my medical opinion , if patient goes into Cardiac Arrest, doing CPR would be medically futile. Discussed with Senior Portfolio Manager - Dr Montejo who agrees. At this point, a Do not Escalate treatment would be more appropriate. DNR order placed. 12/05: developed fever 101, no WBC, tachycardia. Abx changed from Zosyn to Cipro 2/2 sensitivities. Strep Viridans in Urine treated with 2 weeks course of Zosyn and Vanco as well. Repeat blood and urine cx. 1. Sepsis due to Aspiration Pneumonia Intubated on Vent (PVRC/AC 12/450/5/40%) BP improved, off levophed drip , afebrile , WBC trended down to normal 10 K procalcitonin was elevated 79 trachea aspirate: positive for Citrobacter D/C Zosyn, as repeat Trach asp ( Citrobacter) sensitivities - only Intermediate toZosyn , started on IV Cipro Completed Vanco treatment ID consulted : Dr. Anderson Keep HOB elevated , aspiration, precautions,respiratory toilet with frequent suctioning 2. Acute CVA Patient is comatose at present , noticed slight withdrawal to painful stimuli , pupils nonreactive MRI brain showed pontine , midbrain, cerebellar hemispheres and thalamic infarct Neurology on consult Repeat CT of head 11/28 showed :Gross edematous changes affect cerebellar hemispheres bilaterally sparing only the inferior margins somewhat and causing compression on the the mid to lower brainstem. The 4th ventricle is partially effaced but no obstructive hydrocephalus appreciated at this time. Edema has extend into the bilateral thalami, right greater than left further indicative of expanding infarction. No intracranial hemorrhage. Placed on Hypertonic Saline to keep Na at least 145 Poor Prognosis Continue ASA, Statin, Plavix Sharing network has been notified Ethics Committee met -rec application for emergency guardianship 3. UTI urine cx positive for Strep viridans received Vanco IV 4. ? Alcoholism unclear if alcoholic, cannot obtain hx however ED note stated that patient has history of ETOH ETOH level low urine Tox : neg Thiamine and FA DVT prophylaxis Acute Lovenox
[2017-12-07 05:48] LABS: BASO # 0.1 K/uL (0.0-0.2); BASO % 0.9 % (0.0-2.0); EOS # 0.1 K/uL (0.0-0.7); EOS % 1.5 % (0.0-4.0); HEMOGLOBIN 10.7 g/dL (12.0-18.0); LYMPH # 2.1 K/uL (1.0-4.3); LYMPH % 21.7 % (20.0-40.0); MEAN CELL VOLUME 90.3 fl (80.0-94.0); MEAN CORPUSCULAR HGB CONC 33.2 g/dL (33.0-37.0); MEAN PLATELET VOLUME 8.5 fl (7.2-11.7); MONO # 1.6 K/uL (0.0-0.8); MONO % 15.8 % (0.0-10.0); NEUT % 60.1 % (50.0-75.0); RBC 3.58 Mil/uL (4.40-5.90); RED CELL DISTRIBUTION WIDTH 15.4 % (11.5-14.5); WHITE BLOOD COUNT 9.9 K/uL (4.8-10.8)
[2017-12-07 05:49] LABS: ABG ALLEN TEST YES; ARTERIAL BLOOD GAS HEMOGLOBIN 11.4 g/dL (11.7-17.4); ARTERIAL BLOOD GAS O2 CAPACITY 15.7 mL/dL (16-24); ARTERIAL BLOOD GAS O2 CONTENT 15.5 ML/dL (15-23); ARTERIAL BLOOD GAS O2 SAT 98.6 % (95-98); ARTERIAL BLOOD GAS PCO2 56 mm/Hg (35-45); ARTERIAL BLOOD GAS PH 7.45 (7.35-7.45); ARTERIAL BLOOD GAS PO2 104 mm/Hg (80-100); ARTERIAL BLOOD GAS TCO2 40.6 mmol/L (22-28)
[2017-12-07 06:19] LABS: BLOOD UREA NITROGEN 23 mg/dl (9-20); GFR AFRICAN-AMERICAN > 60; GFR NON-AFRICAN AMERICAN > 60
[2017-12-07 06:20] LABS: CALCIUM 8.5 mg/dL (8.4-10.2)
--- NOTE | 2017-12-07 08:19 | CP.PCM.PN ---
Subjective - Date & Time of Evaluation Date of Evaluation: 12/07/17 Time of Evaluation: 08:19 - Subjective Subjective: pt intubated, sedated HD stable no apparent distress Objective - Vital Signs/Intake and Output Vital Signs (last 24 hours): Temp Pulse Resp BP Pulse Ox 96.6 F L 108 H 18 109/71 98 12/07/17 08:00 12/07/17 08:00 12/07/17 08:00 12/07/17 08:00 12/07/17 08:00 Intake and Output: 12/07/17 12/07/17 06:59 18:59 Intake Total 1170 60 Output Total 950 Balance 220 60 - Medications Medications: Current Medications Acetaminophen (Tylenol 650mg/20.3ml Solution Ud) 650 mg PO Q6 PRN PRN Reason: fever > 100.4 Last Admin: 12/05/17 09:29 Dose: 650 mg Aspirin (Aspirin Chewable) 81 mg NG DAILY [facility] Last Admin: 12/06/17 08:28 Dose: 81 mg Atorvastatin Calcium (Lipitor) 40 mg PO HS [facility] Last Admin: 12/06/17 21:19 Dose: 40 mg Clopidogrel Bisulfate (Plavix) 75 mg NG DAILY [facility] Last Admin: 12/06/17 08:28 Dose: 75 mg Enoxaparin Sodium (Lovenox) 40 mg SC DAILY [facility] PRN Reason: Protocol Last Admin: 12/06/17 08:27 Dose: 40 mg Famotidine (Pepcid) 40 mg PO DAILY [facility] Last Admin: 12/06/17 08:28 Dose: 40 mg Folic Acid (Folic Acid) 1 mg GT DAILY [facility] Last Admin: 12/06/17 08:27 Dose: 1 mg Ciprofloxacin (Cipro 400mg/200ml Dsw) 400 mg in 200 mls @ 200 mls/hr IVPB Q12 [facility] PRN Reason: Protocol Last Admin: 12/06/17 21:19 Dose: 200 mls/hr Thiamine HCl (Vitamin B1 Tab) 100 mg NG DAILY [facility] Last Admin: 12/06/17 08:28 Dose: 100 mg - Labs Labs: 12/07/17 04:25 12/07/17 04:25 PT 14.1 Seconds (9.8-13.1) H 12/01/17 09:44 INR 1.3 (0.9-1.2) H 12/01/17 09:44 APTT 34.4 Seconds (25.6-37.1) 12/01/17 09:44 - Constitutional Appears: Non-toxic, No Acute Distress - Head Exam Head Exam: ATRAUMATIC, NORMAL INSPECTION - Eye Exam Eye Exam: Normal appearance. absent: Conjunctival injection, Scleral icterus - ENT Exam ENT Exam: Mucous Membranes Dry Additional comments: intubated - Respiratory Exam Respiratory Exam: Clear to Ausculation Bilateral, NORMAL BREATHING PATTERN - Cardiovascular Exam Cardiovascular Exam: RRR, +S1, +S2 - GI/Abdominal Exam GI & Abdominal Exam: Soft, Normal Bowel Sounds - Extremities Exam Extremities Exam: Normal Capillary Refill. absent: Joint Swelling - Neurological Exam Neurological Exam: absent: Alert, Awake (sedated, intubated) - Psychiatric Exam Psychiatric exam: absent: Normal Affect, Normal Mood (unable to assess, sedated) - Skin Skin Exam: Dry, Normal Color, Warm Assessment and Plan - Assessment and Plan (Free Text) Plan: White male , Tez White , unkempt, unknown PMH was brought by EMS after he was observed by bystanders falling in the street. Patient was lethargic on admission however arousable , noted to have a facial droop and his speech was slurred. CT of head : Moderate to significant diffuse/confluent chronic white matter ischemic changes seen extending from the periventricular into the subcortical regions bilaterally. Changes are most pronounced in the parietal lobes. In addition, there are scattered chronic bilateral basal nuclei lacunar type infarcts. Small lacunar type infarcts also seen both cerebellar hemispheres. Note that the possibility of a small hyperacute infarct cannot be excluded on this study. Clinical correlation recommended. Marked dilatation of the atria and occipital horns possibly secondary to central volume loss on which is above most pronounced in the temporal occipital and parietal watershed zone regions On 11/16 noted to be obtunded ,unable to clear his secretions, tachypneic and saturation in the 80%. He was transferred to ICU and intubated for airway protection. Repeat CT of head showed no change. MRI showed pontine, midbrain , cerebellar hemispheres and thalami infarct. 11/22: With episode of vomiting and possible aspiration became hypotensive, tachycardic, febrile, hypoxemic Repeat CT head 11/28 showed :Gross edematous changes affect cerebellar hemispheres bilaterally sparing only the inferior margins somewhat and causing compression on the the mid to lower brainstem. The 4th ventricle is partially effaced but no obstructive hydrocephalus appreciated at this time. Edema has extend into the bilateral thalami, right greater than left further indicative of expanding infarction. No intracranial hemorrhage. Ethics Committee meeting - rec Emergency guardianship , application in progress. 12/02: Given pt's poor prognosis, in my medical opinion , if patient goes into Cardiac Arrest, doing CPR would be medically futile. Discussed with Tank Wagon Operator - Dr Montejo who agrees. At this point, a Do not Escalate treatment would be more appropriate. DNR order placed. 12/05: developed fever 101, no WBC, tachycardia. Abx changed from Zosyn to Cipro 2/2 sensitivities. Strep Viridans in Urine treated with 2 weeks course of Zosyn and Vanco as well. Repeat blood and urine cx. 1. Sepsis due to Aspiration Pneumonia Intubated on Vent (PVRC/AC 12/450/5/40%) BP improved, off levophed drip , afebrile , WBC trended down to normal 10 K procalcitonin was elevated 79 trachea aspirate: positive for Citrobacter D/C Zosyn, as repeat Trach asp ( Citrobacter) sensitivities - only Intermediate toZosyn , started on IV Cipro Completed Vanco treatment ID consulted : Dr. Anderson Keep HOB elevated , aspiration, precautions,respiratory toilet with frequent suctioning Repeat Blood cx: +coag neg staph, poss contaminant? 2. Acute CVA Patient is comatose at present , noticed slight withdrawal to painful stimuli , pupils nonreactive MRI brain showed pontine , midbrain, cerebellar hemispheres and thalamic infarct Neurology on consult Repeat CT of head 11/28 showed :Gross edematous changes affect cerebellar hemispheres bilaterally sparing only the inferior margins somewhat and causing compression on the the mid to lower brainstem. The 4th ventricle is partially effaced but no obstructive hydrocephalus appreciated at this time. Edema has extend into the bilateral thalami, right greater than left further indicative of expanding infarction. No intracranial hemorrhage. Placed on Hypertonic Saline to keep Na at least 145 Poor Prognosis Continue ASA, Statin, Plavix Sh[employer] network has been notified Ethics Committee met -rec application for emergency guardianship 3. UTI urine cx positive for Strep viridans received Vanco IV 4. ? Alcoholism unclear if alcoholic, cannot obtain hx however ED note stated that patient has history of ETOH ETOH level low urine Tox : neg Thiamine and FA DVT prophylaxis Acute Lovenox
[2017-12-07] MEDS: Ciprofloxacin 400mg/200ml D5W 400 MG/200 ML BAG IVPB SCH ×2 (08:27→20:22)
[2017-12-07] MEDS: Enoxaparin 40 mg Syringe SC SCH (08:28)
--- NOTE | 2017-12-07 08:29 | RAD ---
HISTORY: ETT placement COMPARISON: Portable chest 12/06/2017. FINDINGS: LUNGS: Endotracheal and nasogastric tubes do not appear significantly changed in position. Right central venous line is stable as well. PLEURA: No airspace disease apparent at this time. CARDIOVASCULAR: Normal. OSSEOUS STRUCTURES: No significant abnormalities. VISUALIZED UPPER ABDOMEN: Normal. OTHER FINDINGS: None. IMPRESSION: Tubes and catheter stable in position. No acute cardiopulmonary pathology appreciable.
--- NOTE | 2017-12-07 08:54 | CP.CCUPN ---
<Mich Garcia - Last Filed: 12/07/17 10:46> CCU Subjective - Physician Review Events Since Last Encounter (Free Text): pt seen and examined at bedside. No acute events overnight. Labs/imaging reviewed. Febrile overnight with tachycardia, stable BP. Pupils fixed, 4mm. + Corneal reflex, negative gag. No scrotal/pedal edema appreciated. CCU Objective - Vital Signs / Intake & Output Vital Signs (Last 4 hours): Vital Signs Temp Pulse Resp BP Pulse Ox 12/07/17 08:00 96.6 F L 108 H 18 109/71 98 12/07/17 06:00 104 H 17 134/85 100 Intake and Output (Last 8hrs): Intake & Output 12/06/17 12/07/17 12/07/17 22:59 06:59 14:59 Intake Total 780 780 60 Output Total 1100 950 Balance -320 -170 60 Weight 67.132 kg Intake: Tube Feeding 480 480 60 Free Water Flush 300 300 Output: Urine 1100 950 2-way Urethral 1100 950 - Physical Exam Head: Positive for: Atraumatic, Normocephalic. Negative for: Ecchymosis, Abrasion, Laceration Pupils: Positive for: Non-Reactive, Other (midline, +corneal reflex, approx 4mm ). Negative for: PERRL Extroacular Muscles: Negative for: EOMI, Gaze Palsy Conjunctiva: Positive for: Normal. Negative for: Injected, Icteric Ears: Positive for: Normal Mouth: Positive for: Dry Pharnyx: Positive for: Normal. Negative for: ERYTHEMA, EXUDATE, TONSILS ENLARGED Neck: Positive for: Normal Range of Motion, Trachea Midline, Other (R. IJ line) . Negative for: Meningeal Signs, JVD, Lymphadenopathy Respiratory/Chest: Positive for: Good Air Exchange. Negative for: Clear to Auscultation (gugrling sounds, distant breath sounds b/l), Respiratory Distress , Decreased Breath Sounds, Rales, Retracting, Rhonchi, Tachypneic, Tender to Palpation Cardiovascular: Positive for: Normal S1, S2, Peripheal Pulses Present (present but faint ), Tachycardic. Negative for: Regular Rate and Rhythm, Murmurs, Irregular Rhythm, Rub, Gallop, Muffled Abdomen: Positive for: Normal Bowel Sounds. Negative for: Tenderness, Distention, Peritoneal Signs Upper Extremity: Positive for: Normal Inspection, Capillary Refill < 2s. Negative for: Cyanosis, Edema Lower Extremity: Positive for: Normal Inspection, NORMAL PULSES, Cyanosis, Neurovascularly Intact, Capillary Refill < 2 s. Negative for: Edema, CALF TENDERNESS, Swelling, Erythema, Temperature Abnormalties Neurological: Positive for: Other (intermittent decerebrate posturing, less frequent today. ). Negative for: GCS=15 (GCS: 4T), CN II-XII Intact, Speech Normal (unable to evaluate ), Motor Func Grossly Intact, Normal Sensory Function , Normal Cerebellar Funct, Norm Deep Tendon Reflexes (diminished) Skin: Positive for: Dry, Cold (extremities ), Other (mottled ). Negative for: Normal Color (vitiligo?, chronic skin changes from weather exposure and recurrent friction/trauma ), Laceration Lymphatic: Negative for: Cervical Adenopathy Psychiatric: Positive for: Other (comatose). Negative for: Alert, Oriented x 3 , Normal Insight, Normal Concentration - Medications Active Medications: Active Medications Generic Name Dose Route Start Last Admin Trade Name Freq PRN Reason Stop Dose Admin Acetaminophen 650 mg 11/27/17 00:56 12/05/17 09:29 Tylenol 650mg/20.3ml Solution Ud PO 650 mg Q6 PRN Administration fever > 100.4 Aspirin 81 mg 11/19/17 09:00 12/07/17 08:31 Aspirin Chewable NG 81 mg DAILY [facility] Administration Atorvastatin Calcium 40 mg 11/17/17 22:00 12/06/17 21:19 Lipitor PO 40 mg HS [facility] Administration Clopidogrel Bisulfate 75 mg 11/18/17 09:45 12/07/17 08:30 Plavix NG 75 mg DAILY [facility] Administration Enoxaparin Sodium 40 mg 11/28/17 09:00 12/07/17 08:28 Lovenox SC 40 mg DAILY [facility] Administration Protocol Famotidine 40 mg 12/02/17 09:00 12/07/17 08:31 Pepcid PO 40 mg DAILY [facility] Administration Folic Acid 1 mg 11/17/17 09:00 12/07/17 08:30 Folic Acid GT 1 mg DAILY [facility] Administration Ciprofloxacin 400 mg in 200 mls @ 200 mls/hr 12/05/17 12:00 12/07/17 08:27 Cipro 400mg/200ml Dsw IVPB 200 mls/hr Q12 [facility] Administration Protocol Thiamine HCl 100 mg 11/17/17 13:45 12/07/17 08:30 Vitamin B1 Tab NG 100 mg DAILY [facility] Administration - Patient Studies Lab Studies: Microbiology Studies 12/05/17 12:08 S.aureus & Coag-Neg Staph PNA FISH - Final Blood Blood Culture - Preliminary Coagulase Neg Staphylococcus Gram Stain - Preliminary 12/05/17 12:08 Blood Culture - Preliminary Blood NO GROWTH AFTER 24 HOURS 12/05/17 12:08 Urine Culture - Final Urine,Catheterized No Growth (<1,000 CFU/ML) Lab Studies 12/07/17 12/07/17 12/07/17 Range/Units 05:43 05:27 04:25 WBC (4.8-10.8) K/uL RBC (4.40-5.90) Mil/uL Hgb (12.0-18.0) g/dL Hct (35.0-51.0) % MCV (80.0-94.0) fl MCH (27.0-31.0) pg MCHC (33.0-37.0) g/dL RDW (11.5-14.5) % Plt Count (130-400) K/uL MPV (7.2-11.7) fl Neut % (Auto) (50.0-75.0) % Lymph % (Auto) (20.0-40.0) % Mora % (Auto) (0.0-10.0) % Eos % (Auto) (0.0-4.0) % Baso % (Auto) (0.0-2.0) % Neut # (Auto) (1.8-7.0) K/uL Lymph # (Auto) (1.0-4.3) K/uL Mora # (Auto) (0.0-0.8) K/uL Eos # (Auto) (0.0-0.7) K/uL Baso # (Auto) (0.0-0.2) K/uL pCO2 56 H (35-45) mm/Hg pO2 104 H (80-100) mm/Hg HCO3 35.0 H (21-28) mmol/L ABG pH 7.45 (7.35-7.45) ABG Total CO2 40.6 H (22-28) mmol/L ABG O2 Saturation 98.6 H (95-98) % ABG O2 Content 15.5 (15-23) ML/dL ABG Base Excess 12.9 H (-2.0-3.0) mmol/L ABG Hemoglobin 11.4 L (11.7-17.4) g/dL ABG Carboxyhemoglobin 1.4 (0.5-1.5) % POC ABG HHb (Measured) 1.4 (0.0-5.0) % ABG Methemoglobin 1.3 (0.0-3.0) % ABG O2 Capacity 15.7 L (16-24) mL/dL Roberto Test Yes A-a O2 Difference 111.0 mm/Hg Hgb O2 Saturation 96.0 (95.0-98.0) % Vent Mode A/c Mechanical Rate 12 FiO2 40.0 % Tidal Volume 450 PEEP 5 Sodium 136 (132-148) mmol/l Potassium 3.8 (3.6-5.0) MMOL/L Chloride 87 L (98-107) mmol/L Carbon Dioxide 38 H (22-30) mmol/L Anion Gap 15 (10-20) BUN 23 H (9-20) mg/dl Creatinine 0.8 (0.8-1.5) mg/dl Est GFR ( Amer) > 60 Est GFR (Non-Af Amer) > 60 POC Glucose (mg/dL) 115 H (65-110) mg/dL Random Glucose 132 H (75-110) mg/dL Calcium 8.5 (8.4-10.2) mg/dL 12/07/17 12/06/17 12/06/17 Range/Units 04:25 21:11 16:59 WBC 9.9 (4.8-10.8) K/uL RBC 3.58 L (4.40-5.90) Mil/uL Hgb 10.7 L (12.0-18.0) g/dL Hct 32.3 L (35.0-51.0) % MCV 90.3 (80.0-94.0) fl MCH 30.0 (27.0-31.0) pg MCHC 33.2 (33.0-37.0) g/dL RDW 15.4 H (11.5-14.5) % Plt Count 461 H (130-400) K/uL MPV 8.5 (7.2-11.7) fl Neut % (Auto) 60.1 (50.0-75.0) % Lymph % (Auto) 21.7 (20.0-40.0) % Mora % (Auto) 15.8 H (0.0-10.0) % Eos % (Auto) 1.5 (0.0-4.0) % Baso % (Auto) 0.9 (0.0-2.0) % Neut # (Auto) 6.0 (1.8-7.0) K/uL Lymph # (Auto) 2.1 (1.0-4.3) K/uL Mora # (Auto) 1.6 H (0.0-0.8) K/uL Eos # (Auto) 0.1 (0.0-0.7) K/uL Baso # (Auto) 0.1 (0.0-0.2) K/uL pCO2 (35-45) mm/Hg pO2 (80-100) mm/Hg HCO3 (21-28) mmol/L ABG pH (7.35-7.45) ABG Total CO2 (22-28) mmol/L ABG O2 Saturation (95-98) % ABG O2 Content (15-23) ML/dL ABG Base Excess (-2.0-3.0) mmol/L ABG Hemoglobin (11.7-17.4) g/dL ABG Carboxyhemoglobin (0.5-1.5) % POC ABG HHb (Measured) (0.0-5.0) % ABG Methemoglobin (0.0-3.0) % ABG O2 Capacity (16-24) mL/dL Roberto Test A-a O2 Difference mm/Hg Hgb O2 Saturation (95.0-98.0) % Vent Mode Mechanical Rate FiO2 % Tidal Volume PEEP Sodium (132-148) mmol/l Potassium (3.6-5.0) MMOL/L Chloride (98-107) mmol/L Carbon Dioxide (22-30) mmol/L Anion Gap (10-20) BUN (9-20) mg/dl Creatinine (0.8-1.5) mg/dl Est GFR ( Amer) Est GFR (Non-Af Amer) POC Glucose (mg/dL) 133 H 114 H (65-110) mg/dL Random Glucose (75-110) mg/dL Calcium (8.4-10.2) mg/dL 12/06/17 12/06/17 Range/Units 11:22 05:42 WBC (4.8-10.8) K/uL RBC (4.40-5.90) Mil/uL Hgb (12.0-18.0) g/dL Hct (35.0-51.0) % MCV (80.0-94.0) fl MCH (27.0-31.0) pg MCHC (33.0-37.0) g/dL RDW (11.5-14.5) % Plt Count (130-400) K/uL MPV (7.2-11.7) fl Neut % (Auto) (50.0-75.0) % Lymph % (Auto) (20.0-40.0) % Mora % (Auto) (0.0-10.0) % Eos % (Auto) (0.0-4.0) % Baso % (Auto) (0.0-2.0) % Neut # (Auto) (1.8-7.0) K/uL Lymph # (Auto) (1.0-4.3) K/uL Mora # (Auto) (0.0-0.8) K/uL Eos # (Auto) (0.0-0.7) K/uL Baso # (Auto) (0.0-0.2) K/uL pCO2 (35-45) mm/Hg pO2 (80-100) mm/Hg HCO3 (21-28) mmol/L ABG pH (7.35-7.45) ABG Total CO2 (22-28) mmol/L ABG O2 Saturation (95-98) % ABG O2 Content (15-23) ML/dL ABG Base Excess (-2.0-3.0) mmol/L ABG Hemoglobin (11.7-17.4) g/dL ABG Carboxyhemoglobin (0.5-1.5) % POC ABG HHb (Measured) (0.0-5.0) % ABG Methemoglobin (0.0-3.0) % ABG O2 Capacity (16-24) mL/dL Roberto Test A-a O2 Difference mm/Hg Hgb O2 Saturation (95.0-98.0) % Vent Mode Mechanical Rate FiO2 % Tidal Volume PEEP Sodium (132-148) mmol/l Potassium (3.6-5.0) MMOL/L Chloride (98-107) mmol/L Carbon Dioxide (22-30) mmol/L Anion Gap (10-20) BUN (9-20) mg/dl Creatinine (0.8-1.5) mg/dl Est GFR ( Amer) Est GFR (Non-Af Amer) POC Glucose (mg/dL) 132 H 125 H (65-110) mg/dL Random Glucose (75-110) mg/dL Calcium (8.4-10.2) mg/dL Laboratory Results - last 24 hr 12/06/17 12/06/17 12/06/17 05:42 11:22 16:59 WBC RBC Hgb Hct MCV MCH MCHC RDW Plt Count MPV Neut % (Auto) Lymph % (Auto) Mora % (Auto) Eos % (Auto) Baso % (Auto) Neut # (Auto) Lymph # (Auto) Mora # (Auto) Eos # (Auto) Baso # (Auto) pCO2 pO2 HCO3 ABG pH ABG Total CO2 ABG O2 Saturation ABG O2 Content ABG Base Excess ABG Hemoglobin ABG Carboxyhemoglobin POC ABG HHb (Measured) ABG Methemoglobin ABG O2 Capacity Roberto Test A-a O2 Difference Hgb O2 Saturation Vent Mode Mechanical Rate FiO2 Tidal Volume PEEP Sodium Potassium Chloride Carbon Dioxide Anion Gap BUN Creatinine Est GFR ( Amer) Est GFR (Non-Af Amer) POC Glucose (mg/dL) 125 H 132 H 114 H Random Glucose Calcium 12/06/17 12/07/17 12/07/17 21:11 04:25 04:25 WBC 9.9 RBC 3.58 L Hgb 10.7 L Hct 32.3 L MCV 90.3 MCH 30.0 MCHC 33.2 RDW 15.4 H Plt Count 461 H MPV 8.5 Neut % (Auto) 60.1 Lymph % (Auto) 21.7 Mora % (Auto) 15.8 H Eos % (Auto) 1.5 Baso % (Auto) 0.9 Neut # (Auto) 6.0 Lymph # (Auto) 2.1 Mora # (Auto) 1.6 H Eos # (Auto) 0.1 Baso # (Auto) 0.1 pCO2 pO2 HCO3 ABG pH ABG Total CO2 ABG O2 Saturation ABG O2 Content ABG Base Excess ABG Hemoglobin ABG Carboxyhemoglobin POC ABG HHb (Measured) ABG Methemoglobin ABG O2 Capacity Roberto Test A-a O2 Difference Hgb O2 Saturation Vent Mode Mechanical Rate FiO2 Tidal Volume PEEP Sodium 136 Potassium 3.8 Chloride 87 L Carbon Dioxide 38 H Anion Gap 15 BUN 23 H Creatinine 0.8 Est GFR ( Amer) > 60 Est GFR (Non-Af Amer) > 60 POC Glucose (mg/dL) 133 H Random Glucose 132 H Calcium 8.5 12/07/17 12/07/17 05:27 05:43 WBC RBC Hgb Hct MCV MCH MCHC RDW Plt Count MPV Neut % (Auto) Lymph % (Auto) Mora % (Auto) Eos % (Auto) Baso % (Auto) Neut # (Auto) Lymph # (Auto) Mora # (Auto) Eos # (Auto) Baso # (Auto) pCO2 56 H pO2 104 H HCO3 35.0 H ABG pH 7.45 ABG Total CO2 40.6 H ABG O2 Saturation 98.6 H ABG O2 Content 15.5 ABG Base Excess 12.9 H ABG Hemoglobin 11.4 L ABG Carboxyhemoglobin 1.4 POC ABG HHb (Measured) 1.4 ABG Methemoglobin 1.3 ABG O2 Capacity 15.7 L Roberto Test Yes A-a O2 Difference 111.0 Hgb O2 Saturation 96.0 Vent Mode A/c Mechanical Rate 12 FiO2 40.0 Tidal Volume 450 PEEP 5 Sodium Potassium Chloride Carbon Dioxide Anion Gap BUN Creatinine Est GFR ( Amer) Est GFR (Non-Af Amer) POC Glucose (mg/dL) 115 H Random Glucose Calcium Fingerstick Blood Sugar Results: 133 Critical Care Progress Note - Nutrition Nutrition: Nutrition Category Date Time Status NPO Diet [DIET] Diets 11/15/17 Lunch Active Assessment/Plan - Assessment and Plan (Free Text) Assessment: 63 y/o male, with unobtainable medical history, admitted to hospital for AMS of uncertain etiology, transferred to ICU due to worsening mental status, tachypnea , and desaturation, found to have 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 Plan: 1) Sepsis secondary to Aspiration Pneumonitis -sputum: citrobacter diversus -fever control with Acetominophen -IV Ciprofloxacin as per sputum C&S -monitor CBC -repeat CXR in AM -fever control 2) Coagulase Negative Staph Bacteremia: -3.375 Zosyn Q6H -Awaiting C&S results -ID on board, awaiting further recommendations 3) Altered Mental Status secondary to Acute Pontine infarct with extension to midbrain -Brain MRI: acute pontine infaract with extension to midbrain. Smaller cerebellar infarcts b/l -repeat Head CT 12/06: no acute intracranial abnormality. Little interval change in presumable ischemic injury to the thalami -worse on the right brainstem including cerebral peduncles and b/l cerebellar hemispheres -no evidence of hydrocephalus or herniation -Intubated -c/w respiratory support -aspirin/plavix as per neuro -atorvastatin 40mg -amantadine -repeat ABG in AM -poor prognosis/Ethic committee review 4) Respiratory Failure secondary to AMS -2/2 to Acute CVA -intubated -continues to trigger vent -Rate 12, Vt 450, FIO2 40.0, PEEP 5 -f/u ABG 5) Anemia of Unknown Etiology -resolved -H/H: 10.7/32.3 -monitor H/H 6) Prophylaxis -Head of bed elevation @ 30 degrees -Protonix 40mg IVP QD -Lovenox 40mg SC QD -SCDs 7) Code Status: -DNR -Overall extremely poor prognosis given recent repeat head CT showing extension of infarct and no change in clinical condition. <Talib Montejo - Last Filed: 12/07/17 13:50> CCU Subjective - Physician Review Events Since Last Encounter (Free Text): Attestation: Patient seen and examined at the bedside with Resident Dr. Chastity Garcia; and I agree with his outline of plans and management documented below as discussed on AM rounds reflecting my review of all applicable clinical data, and participation in the care of the patient throughout the day in ICU; today, December 07, 2017.
--- NOTE | 2017-12-07 11:31 | CP.PCM.PN ---
Subjective - Date & Time of Evaluation Date of Evaluation: 12/07/17 Time of Evaluation: 11:31 - Subjective Subjective: Mr. White was seen and examined at the bedside in ICU. He remains on mechanical ventilator on PRVC mode. His pupils are slight mydriasis 4mm bilaterally, non- reactive to light accommodation, no corneal reflex, + gag reflex, withdraws from pain stimuli, GCS-4T. He has mottling noted in the lower extremities and bilateral upper hands. He is also febrile currently on hypothermic blanket. There was no untoward events overnight Objective - Vital Signs/Intake and Output Vital Signs (last 24 hours): Temp Pulse Resp BP Pulse Ox 96.6 F L 109 H 20 128/85 100 12/07/17 08:00 12/07/17 10:00 12/07/17 10:00 12/07/17 10:00 12/07/17 10:00 Intake and Output: 12/07/17 12/07/17 06:59 18:59 Intake Total 1170 530 Output Total 950 Balance 220 530 - Medications Medications: Current Medications Acetaminophen (Tylenol 650mg/20.3ml Solution Ud) 650 mg PO Q6 PRN PRN Reason: fever > 100.4 Last Admin: 12/05/17 09:29 Dose: 650 mg Aspirin (Aspirin Chewable) 81 mg NG DAILY [facility] Last Admin: 12/07/17 08:31 Dose: 81 mg Atorvastatin Calcium (Lipitor) 40 mg PO HS [facility] Last Admin: 12/06/17 21:19 Dose: 40 mg Clopidogrel Bisulfate (Plavix) 75 mg NG DAILY [facility] Last Admin: 12/07/17 08:30 Dose: 75 mg Enoxaparin Sodium (Lovenox) 40 mg SC DAILY [facility] PRN Reason: Protocol Last Admin: 12/07/17 08:28 Dose: 40 mg Famotidine (Pepcid) 40 mg PO DAILY [facility] Last Admin: 12/07/17 08:31 Dose: 40 mg Folic Acid (Folic Acid) 1 mg GT DAILY [facility] Last Admin: 12/07/17 08:30 Dose: 1 mg Ciprofloxacin (Cipro 400mg/200ml Dsw) 400 mg in 200 mls @ 200 mls/hr IVPB Q12 [facility] PRN Reason: Protocol Last Admin: 12/07/17 08:27 Dose: 200 mls/hr Piperacillin Sod/Tazobactam (Sod 3.375 gm/ Sodium Chloride) 100 mls @ 100 mls/ hr IVPB Q6H [facility] PRN Reason: Protocol Thiamine HCl (Vitamin B1 Tab) 100 mg NG DAILY [facility] Last Admin: 12/07/17 08:30 Dose: 100 mg - Labs Labs: 12/07/17 04:25 12/07/17 04:25 PT 14.1 Seconds (9.8-13.1) H 12/01/17 09:44 INR 1.3 (0.9-1.2) H 12/01/17 09:44 APTT 34.4 Seconds (25.6-37.1) 12/01/17 09:44 - Constitutional Appears: No Acute Distress - Head Exam Head Exam: NORMAL INSPECTION - Neurological Exam Neuro motor strength exam: Left Upper Extremity: 0, Right Upper Extremity: 0, Left Lower Extremity: 0, Right Lower Extremity: 0 Additional comments: GCS- 4T. Assessment and Plan (1) Ischemic stroke Assessment & Plan: Case discussed with Dr. Mcneill, continue all current medical regimen. Recommend to treat any abnormalities in hematology, electrolyte abnormalities, keep head of bed elevated at least 30 degrees, blood pressure and glycemic control. Status: Acute
[2017-12-07] MEDS: Piperacillin/Tazobact 3.375 GM in Sodium Chloride 0.9% 100 ML IVPB SCH ×3 (16:49→21:57)
[2017-12-08] MEDS: Piperacillin/Tazobact 3.375 GM in Sodium Chloride 0.9% 100 ML IVPB SCH (04:34)
[2017-12-08 05:01] LABS: ABG ALLEN TEST YES; ARTERIAL BLOOD GAS HCO3 36.7 mmol/L (21-28); ARTERIAL BLOOD GAS HEMOGLOBIN 10.7 g/dL (11.7-17.4); ARTERIAL BLOOD GAS O2 CAPACITY 14.8 mL/dL (16-24); ARTERIAL BLOOD GAS O2 CONTENT 14.3 ML/dL (15-23); ARTERIAL BLOOD GAS O2 SAT 96.7 % (95-98); ARTERIAL BLOOD GAS PCO2 58 mm/Hg (35-45); ARTERIAL BLOOD GAS PH 7.46 (7.35-7.45); ARTERIAL BLOOD GAS PO2 73 mm/Hg (80-100); ARTERIAL BLOOD GAS TCO2 43.1 mmol/L (22-28)
[2017-12-08 05:10] LABS: HEMOGLOBIN 10.7 g/dL (12.0-18.0); MEAN CORPUSCULAR HEMOGLOBIN 30.1 pg (27.0-31.0); RBC 3.55 Mil/uL (4.40-5.90); RED CELL DISTRIBUTION WIDTH 15.7 % (11.5-14.5); WHITE BLOOD COUNT 8.8 K/uL (4.8-10.8)
[2017-12-08 05:25] LABS: ALB/GLOB RATIO 0.7 (1.0-2.1); ALBUMIN 3.1 g/dL (3.5-5.0); ALT/SGPT 52 U/L (21-72); AST/SGOT 108 U/L (17-59); BLOOD UREA NITROGEN 24 mg/dl (9-20); CALCIUM 8.1 mg/dL (8.4-10.2); GFR AFRICAN-AMERICAN > 60; GFR NON-AFRICAN AMERICAN > 60
--- NOTE | 2017-12-08 07:53 | RAD ---
HISTORY: intubated COMPARISON: Portable chest 12/07/2017. FINDINGS: Endotracheal and nasogastric tubes appear stable in position as well as right central venous line. LUNGS: No active pulmonary disease. PLEURA: No significant pleural effusion identified, no pneumothorax apparent. CARDIOVASCULAR: Normal. OSSEOUS STRUCTURES: No significant abnormalities. VISUALIZED UPPER ABDOMEN: Normal. OTHER FINDINGS: None. IMPRESSION: No interval acute cardiopulmonary disease appreciated. Tubes and catheters stable as discussed above.
[2017-12-08] MEDS: Ciprofloxacin 400mg/200ml D5W 400 MG/200 ML BAG IVPB SCH ×2 (09:09→20:10)
[2017-12-08] MEDS: Enoxaparin 40 mg Syringe SC SCH (09:10)
[2017-12-08] MEDS ORDERED: Potassium Chloride 20 mEq/15 ml LIQ UD PO ONE (09:51)
--- NOTE | 2017-12-08 09:57 | CP.CCUPN ---
<Mich Garcia - Last Filed: 12/08/17 11:35> CCU Subjective - Physician Review Subjective (Free Text): pt seen and examined at bedside this morning. Intubated, triggering vent, on A/ C rate of 12, FIO2 40, Vt 520, PEEP 5. Remains febrile overnight, 100.5. pupils fixed. no corneal reflex. no gag. no cough reflex. No other acute events. CCU Objective - Vital Signs / Intake & Output Vital Signs (Last 4 hours): Vital Signs Temp Pulse Resp BP Pulse Ox 12/08/17 08:00 96.6 F L 95 H 20 110/66 97 12/08/17 07:43 96.8 F L 90 12 132/76 97 12/08/17 06:00 90 19 114/88 99 Intake and Output (Last 8hrs): Intake & Output 12/07/17 12/08/17 12/08/17 22:59 06:59 14:59 Intake Total 1170 980 270 Output Total 1000 Balance 170 980 270 Weight 63.957 kg Intake: Intake, Piggyback 400 100 Tube Feeding 420 580 120 Free Water Flush 350 300 150 Output: Urine 1000 2-way Urethral 1000 Other: # Voids 2-way Urethral 900 - Physical Exam Head: Positive for: Atraumatic, Normocephalic. Negative for: Ecchymosis, Abrasion, Laceration Pupils: Positive for: Non-Reactive, Other (midline, +corneal reflex, approx 4mm ). Negative for: PERRL Extroacular Muscles: Negative for: EOMI, Gaze Palsy Conjunctiva: Positive for: Normal. Negative for: Injected, Icteric Ears: Positive for: Normal Mouth: Positive for: Dry Pharnyx: Positive for: Normal. Negative for: ERYTHEMA, EXUDATE, TONSILS ENLARGED Neck: Positive for: Normal Range of Motion, Trachea Midline, Other (R. IJ line) . Negative for: Meningeal Signs, JVD, Lymphadenopathy Respiratory/Chest: Positive for: Good Air Exchange. Negative for: Clear to Auscultation (gugrling sounds, distant breath sounds b/l), Respiratory Distress , Decreased Breath Sounds, Rales, Retracting, Rhonchi, Tachypneic, Tender to Palpation Cardiovascular: Positive for: Normal S1, S2, Peripheal Pulses Present (present but faint ), Tachycardic. Negative for: Regular Rate and Rhythm, Murmurs, Irregular Rhythm, Rub, Gallop, Muffled Abdomen: Positive for: Normal Bowel Sounds. Negative for: Tenderness, Distention, Peritoneal Signs Upper Extremity: Positive for: Normal Inspection, Capillary Refill < 2s. Negative for: Cyanosis, Edema Lower Extremity: Positive for: Normal Inspection, NORMAL PULSES, Cyanosis, Neurovascularly Intact, Capillary Refill < 2 s. Negative for: Edema, CALF TENDERNESS, Swelling, Erythema, Temperature Abnormalties Neurological: Positive for: Other (intermittent decerebrate posturing, less frequent today. ). Negative for: GCS=15 (GCS: 4T), CN II-XII Intact, Speech Normal (unable to evaluate ), Motor Func Grossly Intact, Normal Sensory Function , Normal Cerebellar Funct, Norm Deep Tendon Reflexes (diminished) Skin: Positive for: Dry, Cold (extremities ), Other (mottled ). Negative for: Normal Color (vitiligo?, chronic skin changes from weather exposure and recurrent friction/trauma ), Laceration Lymphatic: Negative for: Cervical Adenopathy Psychiatric: Positive for: Other (comatose). Negative for: Alert, Oriented x 3 , Normal Insight, Normal Concentration - Medications Active Medications: Active Medications Generic Name Dose Route Start Last Admin Trade Name Freq PRN Reason Stop Dose Admin Acetaminophen 650 mg 11/27/17 00:56 12/05/17 09:29 Tylenol 650mg/20.3ml Solution Ud PO 650 mg Q6 PRN Administration fever > 100.4 Aspirin 81 mg 11/19/17 09:00 12/08/17 09:08 Aspirin Chewable NG 81 mg DAILY [facility] Administration Atorvastatin Calcium 40 mg 11/17/17 22:00 12/07/17 21:57 Lipitor PO 40 mg HS [facility] Administration Clopidogrel Bisulfate 75 mg 11/18/17 09:45 12/08/17 09:11 Plavix NG 75 mg DAILY [facility] Administration Enoxaparin Sodium 40 mg 11/28/17 09:00 12/08/17 09:10 Lovenox SC 40 mg DAILY [facility] Administration Protocol Famotidine 40 mg 12/02/17 09:00 12/08/17 09:11 Pepcid PO 40 mg DAILY [facility] Administration Folic Acid 1 mg 11/17/17 09:00 12/08/17 09:10 Folic Acid GT 1 mg DAILY [facility] Administration Ciprofloxacin 400 mg in 200 mls @ 200 mls/hr 12/05/17 12:00 12/08/17 09:09 Cipro 400mg/200ml Dsw IVPB 200 mls/hr Q12 [facility] Administration Protocol Piperacillin Sod/Tazobactam 100 mls @ 100 mls/hr 12/07/17 10:45 12/08/17 04: 34 Sod 3.375 gm/ Sodium Chloride IVPB 100 mls/hr Q6H [facility] Administration Protocol Thiamine HCl 100 mg 11/17/17 13:45 12/08/17 09:11 Vitamin B1 Tab NG 100 mg DAILY [facility] Administration - Patient Studies Lab Studies: Microbiology Studies 12/05/17 12:08 S.aureus & Coag-Neg Staph PNA FISH - Final Blood Blood Culture - Final Coagulase Neg Staphylococcus Gram Stain - Preliminary 12/05/17 12:08 Blood Culture - Preliminary Blood NO GROWTH AFTER 48 HOURS Lab Studies 12/08/17 12/08/17 12/08/17 Range/Units 05:40 04:54 04:40 WBC (4.8-10.8) K/uL RBC (4.40-5.90) Mil/uL Hgb (12.0-18.0) g/dL Hct (35.0-51.0) % MCV (80.0-94.0) fl MCH (27.0-31.0) pg MCHC (33.0-37.0) g/dL RDW (11.5-14.5) % Plt Count (130-400) K/uL pCO2 58 H (35-45) mm/Hg pO2 73 L (80-100) mm/Hg HCO3 36.7 H (21-28) mmol/L ABG pH 7.46 H (7.35-7.45) ABG Total CO2 43.1 H (22-28) mmol/L ABG O2 Saturation 96.7 (95-98) % ABG O2 Content 14.3 L (15-23) ML/dL ABG Base Excess 15.2 H (-2.0-3.0) mmol/L ABG Hemoglobin 10.7 L (11.7-17.4) g/dL ABG Carboxyhemoglobin 1.4 (0.5-1.5) % POC ABG HHb (Measured) 3.2 (0.0-5.0) % ABG Methemoglobin 1.1 (0.0-3.0) % ABG O2 Capacity 14.8 L (16-24) mL/dL Roberto Test Yes A-a O2 Difference 140.0 mm/Hg Hgb O2 Saturation 94.3 L (95.0-98.0) % Vent Mode A/c Mechanical Rate 12 FiO2 40.0 % Tidal Volume 450 PEEP 5 Sodium 136 (132-148) mmol/l Potassium 3.4 L (3.6-5.0) MMOL/L Chloride 89 L (98-107) mmol/L Carbon Dioxide 47 H* D (22-30) mmol/L Anion Gap 3 L (10-20) BUN 24 H (9-20) mg/dl Creatinine 0.6 L (0.8-1.5) mg/dl Est GFR ( Amer) > 60 Est GFR (Non-Af Amer) > 60 POC Glucose (mg/dL) 129 H (65-110) mg/dL Random Glucose 151 H (75-110) mg/dL Calcium 8.1 L (8.4-10.2) mg/dL Total Bilirubin 0.5 (0.2-1.3) mg/dl AST 108 H D (17-59) U/L ALT 52 (21-72) U/L Alkaline Phosphatase 100 (38-126) U/L Total Protein 7.7 (6.3-8.2) G/DL Albumin 3.1 L (3.5-5.0) g/dL Globulin 4.6 H (2.2-3.9) gm/dL Albumin/Globulin Ratio 0.7 L (1.0-2.1) 12/08/17 12/07/17 12/07/17 Range/Units 04:40 21:14 16:58 WBC 8.8 (4.8-10.8) K/uL RBC 3.55 L (4.40-5.90) Mil/uL Hgb 10.7 L (12.0-18.0) g/dL Hct 32.3 L (35.0-51.0) % MCV 91.0 (80.0-94.0) fl MCH 30.1 (27.0-31.0) pg MCHC 33.0 (33.0-37.0) g/dL RDW 15.7 H (11.5-14.5) % Plt Count 362 (130-400) K/uL pCO2 (35-45) mm/Hg pO2 (80-100) mm/Hg HCO3 (21-28) mmol/L ABG pH (7.35-7.45) ABG Total CO2 (22-28) mmol/L ABG O2 Saturation (95-98) % ABG O2 Content (15-23) ML/dL ABG Base Excess (-2.0-3.0) mmol/L ABG Hemoglobin (11.7-17.4) g/dL ABG Carboxyhemoglobin (0.5-1.5) % POC ABG HHb (Measured) (0.0-5.0) % ABG Methemoglobin (0.0-3.0) % ABG O2 Capacity (16-24) mL/dL Roberto Test A-a O2 Difference mm/Hg Hgb O2 Saturation (95.0-98.0) % Vent Mode Mechanical Rate FiO2 % Tidal Volume PEEP Sodium (132-148) mmol/l Potassium (3.6-5.0) MMOL/L Chloride (98-107) mmol/L Carbon Dioxide (22-30) mmol/L Anion Gap (10-20) BUN (9-20) mg/dl Creatinine (0.8-1.5) mg/dl Est GFR ( Amer) Est GFR (Non-Af Amer) POC Glucose (mg/dL) 181 H 143 H (65-110) mg/dL Random Glucose (75-110) mg/dL Calcium (8.4-10.2) mg/dL Total Bilirubin (0.2-1.3) mg/dl AST (17-59) U/L ALT (21-72) U/L Alkaline Phosphatase (38-126) U/L Total Protein (6.3-8.2) G/DL Albumin (3.5-5.0) g/dL Globulin (2.2-3.9) gm/dL Albumin/Globulin Ratio (1.0-2.1) 12/07/ Range/Units 11:15 WBC (4.8-10.8) K/uL RBC (4.40-5.90) Mil/uL Hgb (12.0-18.0) g/dL Hct (35.0-51.0) % MCV (80.0-94.0) fl MCH (27.0-31.0) pg MCHC (33.0-37.0) g/dL RDW (11.5-14.5) % Plt Count (130-400) K/uL pCO2 (35-45) mm/Hg pO2 (80-100) mm/Hg HCO3 (21-28) mmol/L ABG pH (7.35-7.45) ABG Total CO2 (22-28) mmol/L ABG O2 Saturation (95-98) % ABG O2 Content (15-23) ML/dL ABG Base Excess (-2.0-3.0) mmol/L ABG Hemoglobin (11.7-17.4) g/dL ABG Carboxyhemoglobin (0.5-1.5) % POC ABG HHb (Measured) (0.0-5.0) % ABG Methemoglobin (0.0-3.0) % ABG O2 Capacity (16-24) mL/dL Roberto Test A-a O2 Difference mm/Hg Hgb O2 Saturation (95.0-98.0) % Vent Mode Mechanical Rate FiO2 % Tidal Volume PEEP Sodium (132-148) mmol/l Potassium (3.6-5.0) MMOL/L Chloride (98-107) mmol/L Carbon Dioxide (22-30) mmol/L Anion Gap (10-20) BUN (9-20) mg/dl Creatinine (0.8-1.5) mg/dl Est GFR ( Amer) Est GFR (Non-Af Amer) POC Glucose (mg/dL) 130 H (65-110) mg/dL Random Glucose (75-110) mg/dL Calcium (8.4-10.2) mg/dL Total Bilirubin (0.2-1.3) mg/dl AST (17-59) U/L ALT (21-72) U/L Alkaline Phosphatase (38-126) U/L Total Protein (6.3-8.2) G/DL Albumin (3.5-5.0) g/dL Globulin (2.2-3.9) gm/dL Albumin/Globulin Ratio (1.0-2.1) Laboratory Results - last 24 hr 0512/07/17 12/07/17 11:15 16:58 21:14 WBC RBC Hgb Hct MCV MCH MCHC RDW Plt Count pCO2 pO2 HCO3 ABG pH ABG Total CO2 ABG O2 Saturation ABG O2 Content ABG Base Excess ABG Hemoglobin ABG Carboxyhemoglobin POC ABG HHb (Measured) ABG Methemoglobin ABG O2 Capacity Roberto Test A-a O2 Difference Hgb O2 Saturation Vent Mode Mechanical Rate FiO2 Tidal Volume PEEP Sodium Potassium Chloride Carbon Dioxide Anion Gap BUN Creatinine Est GFR ( Amer) Est GFR (Non-Af Amer) POC Glucose (mg/dL) 130 H 143 H 181 H Random Glucose Calcium Total Bilirubin AST ALT Alkaline Phosphatase Total Protein Albumin Globulin Albumin/Globulin Ratio 12/08/17 12/08/17 12/08/17 04:40 04:40 04:54 WBC 8.8 RBC 3.55 L Hgb 10.7 L Hct 32.3 L MCV 91.0 MCH 30.1 MCHC 33.0 RDW 15.7 H Plt Count 362 pCO2 58 H pO2 73 L HCO3 36.7 H ABG pH 7.46 H ABG Total CO2 43.1 H ABG O2 Saturation 96.7 ABG O2 Content 14.3 L ABG Base Excess 15.2 H ABG Hemoglobin 10.7 L ABG Carboxyhemoglobin 1.4 POC ABG HHb (Measured) 3.2 ABG Methemoglobin 1.1 ABG O2 Capacity 14.8 L Roberto Test Yes A-a O2 Difference 140.0 Hgb O2 Saturation 94.3 L Vent Mode A/c Mechanical Rate 12 FiO2 40.0 Tidal Volume 450 PEEP 5 Sodium 136 Potassium 3.4 L Chloride 89 L Carbon Dioxide 47 H* D Anion Gap 3 L BUN 24 H Creatinine 0.6 L Est GFR ( Amer) > 60 Est GFR (Non-Af Amer) > 60 POC Glucose (mg/dL) Random Glucose 151 H Calcium 8.1 L Total Bilirubin 0.5 AST 108 H D ALT 52 Alkaline Phosphatase 100 Total Protein 7.7 Albumin 3.1 L Globulin 4.6 H Albumin/Globulin Ratio 0.7 L 12/08/17 05:40 WBC RBC Hgb Hct MCV MCH MCHC RDW Plt Count pCO2 pO2 HCO3 ABG pH ABG Total CO2 ABG O2 Saturation ABG O2 Content ABG Base Excess ABG Hemoglobin ABG Carboxyhemoglobin POC ABG HHb (Measured) ABG Methemoglobin ABG O2 Capacity Roberto Test A-a O2 Difference Hgb O2 Saturation Vent Mode Mechanical Rate FiO2 Tidal Volume PEEP Sodium Potassium Chloride Carbon Dioxide Anion Gap BUN Creatinine Est GFR ( Amer) Est GFR (Non-Af Amer) POC Glucose (mg/dL) 129 H Random Glucose Calcium Total Bilirubin AST ALT Alkaline Phosphatase Total Protein Albumin Globulin Albumin/Globulin Ratio Fingerstick Blood Sugar Results: 129 Critical Care Progress Note - Ventilator Checklist Head of Bed 30 Degrees: Yes Daily Sedation Vacation: No (not sedated ) Daily Assessment of Readiness to Wean: No Daily Spontaneous Breathing Trial: No PUD Prophalyxis: Yes (Protonix ) DVT Prophylaxis: Yes (lovenox) Oral Care with Chlorhexidine Gluconate {CHG}: Yes - Vent Settings MODE:: ASSIST CONTROL TIDAL VOLUME:: 520 RESP RATE:: 12 FIO2:: 40.0 PEEP:: 5 - Extremities/Vascular Does the Patient have a Central Venous Catheter?: Yes Insertion Site: Internal Jugular Vein Does the Patient need a Central Venous Catheter?: Yes Does the Patient have a Holloway Catheter?: Yes Does the Patient need a Holloway Catheter?: Yes Catheter Insertion Criteria: Patient requires prolonged immobilization - Prophylaxis GI Prophylaxis GI: PPI - Prophylaxis DVT Prophylaxis DVT: Lovenox Assessment/Plan - Assessment and Plan (Free Text) Assessment: 63 y/o male, with unobtainable medical history, admitted to hospital for AMS of uncertain etiology, transferred to ICU due to worsening mental status, tachypnea , and desaturation, found to have 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 Plan: 1) Coagulase Negative Staph Bacteremia: -Vancomycin sensitive -start 2gm Q12H -Vanco trough 12/09 @ 20:30, goal 15-20 -ID on board, awaiting further recommendations -f/u cbc 2) HyperCapnia: -PCO2: 58 -Bicarb: 47 -adjusted vent settings, increased Vt to 520 -f/u ABG and adjust accordingly 3) Sepsis secondary to Aspiration Pneumonitis -sputum: citrobacter diversus -fever control with Acetaminophen -IV Ciprofloxacin as per sputum C&S -monitor CBC -repeat CXR in AM -fever control 4) Altered Mental Status secondary to Acute Pontine infarct with extension to midbrain -Brain MRI: acute pontine infaract with extension to midbrain. Smaller cerebellar infarcts b/l -repeat Head CT 12/06: no acute intracranial abnormality. Little interval change in presumable ischemic injury to the thalami -worse on the right brainstem including cerebral peduncles and b/l cerebellar hemispheres -no evidence of hydrocephalus or herniation -Intubated -c/w respiratory support -aspirin/plavix as per neuro -atorvastatin 40mg -amantadine -repeat ABG in AM -poor prognosis/Ethic committee review. guardianship pending 5) Respiratory Failure secondary to AMS -2/2 to Acute CVA -intubated -continues to trigger vent -Rate 12, Vt 520, FIO2 40.0, PEEP 5 -f/u ABG 6) Anemia of Unknown Etiology -stable -H/H: 10.7/32.3 -monitor H/H 7) Prophylaxis -Head of bed elevation @ 30 degrees -Protonix 40mg IVP QD -Lovenox 40mg SC QD -SCDs 8) Code Status: -DNR -Overall extremely poor prognosis given recent repeat head CT showing extension of infarct and no change in clinical condition. <Talib Montejo - Last Filed: 12/08/17 18:55> CCU Subjective - Physician Review Subjective (Free Text): Attestation: Patient seen and examined at the bedside with Resident Dr. Chastity Garcia; and I agree with his outline of plans and management documented below as discussed on AM rounds reflecting my review of all applicable clinical data, and participation in the care of the patient throughout the day in ICU; today, December 08, 2017.
[2017-12-08] MEDS ORDERED: Vancomycin 2 GM in Sodium Chloride 0.9% 500 ML IVPB SCH (10:15)
[2017-12-08 10:54] LABS: ABG ALLEN TEST YES; ARTERIAL BLOOD GAS HCO3 37.6 mmol/L (21-28); ARTERIAL BLOOD GAS HEMOGLOBIN 10.6 g/dL (11.7-17.4); ARTERIAL BLOOD GAS O2 CAPACITY 14.7 mL/dL (16-24); ARTERIAL BLOOD GAS O2 CONTENT 14.6 ML/dL (15-23); ARTERIAL BLOOD GAS O2 SAT 99.1 % (95-98); ARTERIAL BLOOD GAS PCO2 55 mm/Hg (35-45); ARTERIAL BLOOD GAS PH 7.49 (7.35-7.45); ARTERIAL BLOOD GAS PO2 114 mm/Hg (80-100); ARTERIAL BLOOD GAS TCO2 43.6 mmol/L (22-28)
--- NOTE | 2017-12-08 12:21 | CP.PCM.PN ---
Subjective - Date & Time of Evaluation Date of Evaluation: 12/08/17 Time of Evaluation: 12:15 - Subjective Subjective: Febrile last night , afebrile so far this am Remains intubated on Vent- Vent setting changed to 18//5/40% Tolerating tube feeding remains unresponsivepoor prognosis Objective - Vital Signs/Intake and Output Vital Signs (last 24 hours): Temp Pulse Resp BP Pulse Ox 97.6 F 103 H 12 115/78 98 12/08/17 11:39 12/08/17 11:39 12/08/17 11:39 12/08/17 11:39 12/08/17 11:39 Intake and Output: 12/08/17 12/08/17 06:59 18:59 Intake Total 1660 1360 Output Total 300 Balance 1660 1060 - Medications Medications: Current Medications Acetaminophen (Tylenol 650mg/20.3ml Solution Ud) 650 mg PO Q6 PRN PRN Reason: fever > 100.4 Last Admin: 12/05/17 09:29 Dose: 650 mg Aspirin (Aspirin Chewable) 81 mg NG DAILY [facility] Last Admin: 12/08/17 09:08 Dose: 81 mg Atorvastatin Calcium (Lipitor) 40 mg PO HS [facility] Last Admin: 12/07/17 21:57 Dose: 40 mg Clopidogrel Bisulfate (Plavix) 75 mg NG DAILY [facility] Last Admin: 12/08/17 09:11 Dose: 75 mg Enoxaparin Sodium (Lovenox) 40 mg SC DAILY [facility] PRN Reason: Protocol Last Admin: 12/08/17 09:10 Dose: 40 mg Famotidine (Pepcid) 40 mg PO DAILY [facility] Last Admin: 12/08/17 09:11 Dose: 40 mg Folic Acid (Folic Acid) 1 mg GT DAILY [facility] Last Admin: 12/08/17 09:10 Dose: 1 mg Ciprofloxacin (Cipro 400mg/200ml Dsw) 400 mg in 200 mls @ 200 mls/hr IVPB Q12 [facility] PRN Reason: Protocol Last Admin: 12/08/17 09:09 Dose: 200 mls/hr Vancomycin HCl 2 gm/ Sodium (Chloride) 500 mls @ 166.667 mls/hr IVPB Q12 [facility] PRN Reason: Protocol Last Admin: 12/08/17 11:18 Dose: 166.667 mls/hr Thiamine HCl (Vitamin B1 Tab) 100 mg NG DAILY [facility] Last Admin: 12/08/17 09:11 Dose: 100 mg - Labs Labs: 12/08/17 04:40 12/08/17 04:40 PT 14.1 Seconds (9.8-13.1) H 12/01/17 09:44 INR 1.3 (0.9-1.2) H 12/01/17 09:44 APTT 34.4 Seconds (25.6-37.1) 12/01/17 09:44 - Constitutional Appears: chronically ill, Intubated on Vent (PVRC/AC 40% FiO2) - Head Exam Head Exam: NORMAL INSPECTION, NORMOCEPHALIC - Eye Exam Eye Exam: Pupil Exam: Fixed, 4mm, not reactive to light - ENT Exam ENT Exam: Mucous Membranes Dry, Normal External Ear Exam - Neck Exam Neck Exam: absent: Meningismus - Respiratory Exam Respiratory Exam: Rhonchi, coarse rales Additional comments: Intubated on Vent - Cardiovascular Exam Cardiovascular Exam: REGULAR RHYTHM, +S1, +S2 - GI/Abdominal Exam GI & Abdominal Exam: Soft, Normal Bowel Sounds OGT in place - Extremities Exam Extremities Exam: Pedal Edema, edematous upper ext LE appear mottled right arm cold compared to left - Neurological Exam Additional comments: unresponsive even to pain fixed pupils no gag reflex breathes over the Vent Assessment and Plan (1) Acute CVA (cerebrovascular accident) Status: Acute (2) Altered mental status Status: Acute (3) Slurring of speech Status: Acute (4) HTN (hypertension) Status: Chronic (5) Acute metabolic encephalopathy Status: Acute (6) Acute respiratory insufficiency Status: Acute (7) DVT prophylaxis Status: Acute - Assessment and Plan (Free Text) Assessment: White male , Tez White , unkempt, unknown PMH was brought by EMS after he was observed by bystanders falling in the street. Patient was lethargic on admission however arousable , noted to have a facial droop and his speech was slurred. CT of head : Moderate to significant diffuse/confluent chronic white matter ischemic changes seen extending from the periventricular into the subcortical regions bilaterally. Changes are most pronounced in the parietal lobes. In addition, there are scattered chronic bilateral basal nuclei lacunar type infarcts. Small lacunar type infarcts also seen both cerebellar hemispheres. Note that the possibility of a small hyperacute infarct cannot be excluded on this study. Clinical correlation recommended. Marked dilatation of the atria and occipital horns possibly secondary to central volume loss on which is above most pronounced in the temporal occipital and parietal watershed zone regions On 11/16 noted to be obtunded ,unable to clear his secretions, tachypneic and saturation in the 80%. He was transferred to ICU and intubated for airway protection. Repeat CT of head showed no change. MRI showed pontine, midbrain , cerebellar hemispheres and thalami infarct. 11/22: With episode of vomiting and possible aspiration became hypotensive, tachycardic, febrile, hypoxemic Repeat CT head 11/28 showed :Gross edematous changes affect cerebellar hemispheres bilaterally sparing only the inferior margins somewhat and causing compression on the the mid to lower brainstem. The 4th ventricle is partially effaced but no obstructive hydrocephalus appreciated at this time. Edema has extend into the bilateral thalami, right greater than left further indicative of expanding infarction. No intracranial hemorrhage. Ethics Committee meeting - rec Emergency guardianship , application in progress. 12/02: Given pt's poor prognosis, in my medical opinion , if patient goes into Cardiac Arrest, doing CPR would be medically futile. Discussed with [employer] - Dr Montejo who agrees. At this point, a Do not Escalate treatment would be more appropriate. DNR order placed. 12/05: developed fever 101, no WBC, tachycardia. Abx changed from Zosyn to Cipro 2/2 sensitivities. Strep Viridans in Urine treated with 2 weeks course of Zosyn and Vanco as well. Repeat blood and urine cx. 1. Sepsis due to Aspiration Pneumonia Intubated on Vent (PVRC/AC 12/450/5/40%) BP improved, off levophed drip , afebrile , WBC trended down to normal 10 K procalcitonin was elevated 79 trachea aspirate: positive for Citrobacter D/C Zosyn, as repeat Trach asp ( Citrobacter) sensitivities - only Intermediate toZosyn , started on IV Cipro Completed Vanco treatment ID consulted : Dr. Anderson Keep HOB elevated , aspiration, precautions,respiratory toilet with frequent suctioning Blood c/s + Staph coag negative 1 out of 2 bottles -? contamination, however since pt is febrile , he was restarted back on IV Vanco 2. Acute CVA Patient is comatose at present , noticed slight withdrawal to painful stimuli , pupils nonreactive MRI brain showed pontine , midbrain, cerebellar hemispheres and thalamic infarct Neurology on consult Repeat CT of head 11/28 showed :Gross edematous changes affect cerebellar hemispheres bilaterally sparing only the inferior margins somewhat and causing compression on the the mid to lower brainstem. The 4th ventricle is partially effaced but no obstructive hydrocephalus appreciated at this time. Edema has extend into the bilateral thalami, right greater than left further indicative of expanding infarction. No intracranial hemorrhage. Poor Prognosis Continue ASA, Statin, Plavix Sharing network has been notified Ethics Committee met -rec application for emergency guardianship 3. UTI urine cx positive for Strep viridans received Vanco IV 4. ? Alcoholism unclear if alcoholic, cannot obtain hx however ED note stated that patient has history of ETOH ETOH level low urine Tox : neg Thiamine and FA DVT prophylaxis Acute Lovenox
[2017-12-08 12:55] LABS: VENOUS BLOOD GAS PCO2 50 mmHg (40-60); VENOUS BLOOD GAS PO2 47 mm/Hg (30-55); VENOUS BLOOD PH 7.49 (7.32-7.43)
--- NOTE | 2017-12-08 18:52 | PCM.PROC ---
Procedures Attestation:: I certify that I have explained the specified Operation(s) or Procedure(s), risks, benefits and reasonable alternatives to the Patient and/or other person responsible. The opportunity was given to ask questions and all questions answered - Intubation Time Out Performed: Yes Sedative: None Assist Device Used: Bougie ET Tube Size: 8.0 ET Tube Uncuffed: No ET Tube Secured at Depth: 21 ET Tube Secured Locarion: Teeth ET Tube Placement Confirmation: Breath Sounds Equal Bilaterally, No Breath Sounds Over Epigastrum Patient Tolerated Procedure: Well Procedure Immediate Complications: None
[2017-12-09 05:33] LABS: ALB/GLOB RATIO 0.7 (1.0-2.1); ALBUMIN 2.9 g/dL (3.5-5.0); ALT/SGPT 58 U/L (21-72); AST/SGOT 110 U/L (17-59); BLOOD UREA NITROGEN 26 mg/dl (9-20); CALCIUM 8.1 mg/dL (8.4-10.2); GFR AFRICAN-AMERICAN > 60; GFR NON-AFRICAN AMERICAN > 60
[2017-12-09 05:37] LABS: HEMOGLOBIN 9.6 g/dL (12.0-18.0); MEAN CELL VOLUME 90.6 fl (80.0-94.0); MEAN CORPUSCULAR HGB CONC 33.1 g/dL (33.0-37.0); RBC 3.2 Mil/uL (4.40-5.90); RED CELL DISTRIBUTION WIDTH 15.6 % (11.5-14.5); WHITE BLOOD COUNT 11.1 K/uL (4.8-10.8)
[2017-12-09 05:38] LABS: ABG ALLEN TEST YES; ARTERIAL BLOOD GAS O2 CAPACITY 13.7 mL/dL (16-24); ARTERIAL BLOOD GAS O2 CONTENT 13.4 ML/dL (15-23); ARTERIAL BLOOD GAS O2 SAT 97.5 % (95-98); ARTERIAL BLOOD GAS PCO2 41 mm/Hg (35-45); ARTERIAL BLOOD GAS PH 7.57 (7.35-7.45); ARTERIAL BLOOD GAS PO2 71 mm/Hg (80-100); ARTERIAL BLOOD GAS TCO2 38.9 mmol/L (22-28)
[2017-12-09] MEDS: Ciprofloxacin 400mg/200ml D5W 400 MG/200 ML BAG IVPB SCH ×2 (08:32→21:31)
[2017-12-09] MEDS: Enoxaparin 40 mg Syringe SC SCH (08:33)
--- NOTE | 2017-12-09 09:13 | RAD ---
HISTORY: New ETT re-placement COMPARISON: Chest radiograph dated 12/08/2017. FINDINGS: LUNGS: No active pulmonary disease. PLEURA: No significant pleural effusion identified, no pneumothorax apparent. CARDIOVASCULAR: Atherosclerotic aortic calcifications. Cardiomediastinal silhouette within normal limits. OSSEOUS STRUCTURES: No significant abnormalities. VISUALIZED UPPER ABDOMEN: Normal. OTHER FINDINGS: Endotracheal tube tip between the clavicles and haresh. Enteric tube, unchanged. Right internal jugular access central venous catheter, unchanged. IMPRESSION: Endotracheal tube in satisfactory position. No significant interval change.
--- NOTE | 2017-12-09 09:25 | CP.PCM.PN ---
Subjective - Date & Time of Evaluation Date of Evaluation: 12/09/17 Time of Evaluation: 09:15 - Subjective Subjective: No fever for more than 24 hours Today he responed to deep pain by flinching, pupils fixed, no gag reflex remains intubated on Mech Vent 18/450/5/40% Skin noted to be mottled tolerating Tube feeding good UO Objective - Vital Signs/Intake and Output Vital Signs (last 24 hours): Temp Pulse Resp BP Pulse Ox 98 F 104 H 18 130/73 100 12/09/17 08:00 12/09/17 08:00 12/09/17 08:00 12/09/17 08:00 12/09/17 08:00 Intake and Output: 12/09/17 12/09/17 06:59 18:59 Intake Total 1410 270 Output Total 600 Balance 810 270 - Medications Medications: Current Medications Acetaminophen (Tylenol 650mg/20.3ml Solution Ud) 650 mg PO Q6 PRN PRN Reason: fever > 100.4 Last Admin: 12/05/17 09:29 Dose: 650 mg Aspirin (Aspirin Chewable) 81 mg NG DAILY [facility] Last Admin: 12/09/17 08:31 Dose: 81 mg Atorvastatin Calcium (Lipitor) 40 mg PO HS COUNT [facility]CLUD[facility] Last Admin: 12/08/17 21:06 Dose: 40 mg Clopidogrel Bisulfate (Plavix) 75 mg NG DAILY COUNT [facility]CLUDES [facility] Last Admin: 12/09/17 08:33 Dose: 75 mg Enoxaparin Sodium (Lovenox) 40 mg SC DAILY COUNT [facility]CLUD[facility] PRN Reason: Protocol Last Admin: 12/09/17 08:33 Dose: 40 mg Famotidine (Pepcid) 40 mg PO DAILY COUNT [facility]CLUD[facility] Last Admin: 12/09/17 08:33 Dose: 40 mg Folic Acid (Folic Acid) 1 mg GT DAILY COUNT [facility]CLUDES [facility] Last Admin: 12/09/17 08:34 Dose: 1 mg Ciprofloxacin (Cipro 400mg/200ml Dsw) 400 mg in 200 mls @ 200 mls/hr IVPB Q12 [facility] PRN Reason: Protocol Last Admin: 12/09/17 08:32 Dose: 200 mls/hr Vancomycin HCl 1 gm/ Sodium (Chloride) 250 mls @ 166.667 mls/hr IVPB Q12 [facility] PRN Reason: Protocol Last Admin: 12/09/17 08:34 Dose: 166.667 mls/hr Thiamine HCl (Vitamin B1 Tab) 100 mg NG DAILY [facility] Last Admin: 12/09/17 08:34 Dose: 100 mg - Labs Labs: 12/09/17 04:20 12/09/17 04:20 PT 14.1 Seconds (9.8-13.1) H 12/01/17 09:44 INR 1.3 (0.9-1.2) H 12/01/17 09:44 APTT 34.4 Seconds (25.6-37.1) 12/01/17 09:44 - Constitutional Appears: chronically ill, Intubated on Vent (PVRC/AC 40% FiO2) - Head Exam Head Exam: NORMAL INSPECTION, NORMOCEPHALIC - Eye Exam Eye Exam: Pupil Exam: Fixed, 4mm, not reactive to light - ENT Exam ENT Exam: Mucous Membranes Dry, Normal External Ear Exam - Neck Exam Neck Exam: absent: Meningismus - Respiratory Exam Respiratory Exam: Rhonchi, coarse rales Additional comments: Intubated on Vent - Cardiovascular Exam Cardiovascular Exam: REGULAR RHYTHM, +S1, +S2 - GI/Abdominal Exam GI & Abdominal Exam: Soft, Normal Bowel Sounds OGT in place - Extremities Exam Extremities Exam: Pedal Edema, edematous upper ext Skin : mottled - Neurological Exam Additional comments: responds to deep pain by slightly flinching fixed pupils no gag reflex breathes over the Vent Assessment and Plan (1) Acute CVA (cerebrovascular accident) Status: Acute (2) Altered mental status Status: Acute (3) Slurring of speech Status: Acute (4) HTN (hypertension) Status: Chronic (5) Acute metabolic encephalopathy Status: Acute (6) Acute respiratory insufficiency Status: Acute (7) DVT prophylaxis Status: Acute - Assessment and Plan (Free Text) Assessment: White male , admitted as Tez White , now indentified by Police as Jesus Grayson , unknown PMH was brought by EMS after he was observed by bystanders falling in the street. Patient was lethargic on admission however arousable , noted to have a facial droop and his speech was slurred. CT of head : Moderate to significant diffuse/confluent chronic white matter ischemic changes seen extending from the periventricular into the subcortical regions bilaterally. Changes are most pronounced in the parietal lobes. In addition, there are scattered chronic bilateral basal nuclei lacunar type infarcts. Small lacunar type infarcts also seen both cerebellar hemispheres. Note that the possibility of a small hyperacute infarct cannot be excluded on this study. Clinical correlation recommended. Marked dilatation of the atria and occipital horns possibly secondary to central volume loss on which is above most pronounced in the temporal occipital and parietal watershed zone regions On 11/16 noted to be obtunded ,unable to clear his secretions, tachypneic and saturation in the 80%. He was transferred to ICU and intubated for airway protection. Repeat CT of head showed no change. MRI showed pontine, midbrain , cerebellar hemispheres and thalami infarct. 11/22: With episode of vomiting and possible aspiration became hypotensive, tachycardic, febrile, hypoxemic Repeat CT head 11/28 showed :Gross edematous changes affect cerebellar hemispheres bilaterally sparing only the inferior margins somewhat and causing compression on the the mid to lower brainstem. The 4th ventricle is partially effaced but no obstructive hydrocephalus appreciated at this time. Edema has extend into the bilateral thalami, right greater than left further indicative of expanding infarction. No intracranial hemorrhage. Ethics Committee meeting - rec Emergency guardianship , application in progress. 12/02: Given pt's poor prognosis, in my medical opinion , if patient goes into Cardiac Arrest, doing CPR would be medically futile. Discussed with [employer] Trainer Teacher - Dr Montejo who agrees. At this point, a Do not Escalate treatment would be more appropriate. DNR order placed. 12/05: developed fever 101, no WBC, tachycardia. Abx changed from Zosyn to Cipro 2/2 sensitivities. Strep Viridans in Urine treated with 2 weeks course of Zosyn and Vanco as well. Repeat blood and urine cx. 1. Sepsis due to Aspiration Pneumonia Intubated on Vent (PVRC/AC 12/450/5/40%) BP improved, off levophed drip , afebrile , WBC trended down procalcitonin was elevated 79 trachea aspirate: positive for Citrobacter D/C Zosyn, as repeat Trach asp ( Citrobacter) sensitivities - only Intermediate to Zosyn , started on IV Cipro ID consulted : Dr. Anderson Keep HOB elevated , aspiration, precautions,respiratory toilet with frequent suctioning Blood c/s + Staph coag negative 1 out of 2 bottles -? contamination, however since pt is febrile , he was restarted back on IV Vanco 2. Acute CVA Patient is comatose at present , noticed slight withdrawal to painful stimuli , pupils nonreactive MRI brain showed pontine , midbrain, cerebellar hemispheres and thalamic infarct Neurology on consult Repeat CT of head 11/28 showed :Gross edematous changes affect cerebellar hemispheres bilaterally sparing only the inferior margins somewhat and causing compression on the the mid to lower brainstem. The 4th ventricle is partially effaced but no obstructive hydrocephalus appreciated at this time. Edema has extend into the bilateral thalami, right greater than left further indicative of expanding infarction. No intracranial hemorrhage. Poor Prognosis Continue ASA, Statin, Plavix Sharing network has been notified Ethics Committee met -rec application for emergency guardianship 3. UTI urine cx positive for Strep viridans completed treatment with Vanco IV 4. ? Alcoholism unclear if alcoholic, cannot obtain hx however ED note stated that patient has history of ETOH ETOH level low urine Tox : neg Thiamine and FA DVT prophylaxis Acute Lovenox
--- NOTE | 2017-12-09 09:44 | CP.PCM.PN ---
Subjective - Date & Time of Evaluation Date of Evaluation: 12/09/17 Time of Evaluation: 09:44 - Subjective Subjective: Mr. Wihte was seen and examined at the bedside in ICU. He remains on mechanical ventilator on PRVC mode. His pupils are slight mydriasis 4mm bilaterally, non- reactive to light accommodation, no corneal reflex, + gag reflex, withdraws from pain stimuli, GCS-4T. There was no untoward events overnight Objective - Vital Signs/Intake and Output Vital Signs (last 24 hours): Temp Pulse Resp BP Pulse Ox 98 F 104 H 18 130/73 100 12/09/17 08:00 12/09/17 08:00 12/09/17 08:00 12/09/17 08:00 12/09/17 08:00 Intake and Output: 12/09/17 12/09/17 06:59 18:59 Intake Total 1410 270 Output Total 600 Balance 810 270 - Medications Medications: Current Medications Acetaminophen (Tylenol 650mg/20.3ml Solution Ud) 650 mg PO Q6 PRN PRN Reason: fever > 100.4 Last Admin: 12/05/17 09:29 Dose: 650 mg Aspirin (Aspirin Chewable) 81 mg NG DAILY [facility] Last Admin: 12/09/17 08:31 Dose: 81 mg Atorvastatin Calcium (Lipitor) 40 mg PO HS [facility] Last Admin: 12/08/17 21:06 Dose: 40 mg Clopidogrel Bisulfate (Plavix) 75 mg NG DAILY [facility] Last Admin: 12/09/17 08:33 Dose: 75 mg Enoxaparin Sodium (Lovenox) 40 mg SC DAILY [facility] PRN Reason: Protocol Last Admin: 12/09/17 08:33 Dose: 40 mg Famotidine (Pepcid) 40 mg PO DAILY [facility] Last Admin: 12/09/17 08:33 Dose: 40 mg Folic Acid (Folic Acid) 1 mg GT DAILY [facility] Last Admin: 12/09/17 08:34 Dose: 1 mg Ciprofloxacin (Cipro 400mg/200ml Dsw) 400 mg in 200 mls @ 200 mls/hr IVPB Q12 [facility] PRN Reason: Protocol Last Admin: 12/09/17 08:32 Dose: 200 mls/hr Vancomycin HCl 1 gm/ Sodium (Chloride) 250 mls @ 166.667 mls/hr IVPB Q12 [facility] PRN Reason: Protocol Last Admin: 12/09/17 08:34 Dose: 166.667 mls/hr Thiamine HCl (Vitamin B1 Tab) 100 mg NG DAILY [facility] Last Admin: 12/09/17 08:34 Dose: 100 mg - Labs Labs: 12/09/17 04:20 12/09/17 04:20 PT 14.1 Seconds (9.8-13.1) H 12/01/17 09:44 INR 1.3 (0.9-1.2) H 12/01/17 09:44 APTT 34.4 Seconds (25.6-37.1) 12/01/17 09:44 - Constitutional Appears: No Acute Distress - Head Exam Head Exam: NORMAL INSPECTION - Eye Exam Pupil Exam: Fixed, Mydriatic - Neurological Exam Neuro motor strength exam: Left Upper Extremity: 0, Right Upper Extremity: 0, Left Lower Extremity: 0, Right Lower Extremity: 0 Additional comments: GCS-4T Assessment and Plan (1) Ischemic stroke Assessment & Plan: Case discussed with Dr. Mcneill, continue all current medical regimen. Recommend to treat any abnormalities in hematology, electrolyte abnormalities, keep head of bed elevated at least 30 degrees, blood pressure and glycemic control. Status: Acute
--- NOTE | 2017-12-09 09:54 | RAD ---
HISTORY: intubated COMPARISON: Chest radiograph dated 12/08/2017 FINDINGS: LUNGS: No active pulmonary disease. PLEURA: No significant pleural effusion identified, no pneumothorax apparent. CARDIOVASCULAR: Atherosclerotic aortic calcifications. Cardiomediastinal silhouette within normal limits. OSSEOUS STRUCTURES: Unchanged. VISUALIZED UPPER ABDOMEN: Normal. OTHER FINDINGS: Endotracheal, enteric tubes, unchanged. Right internal jugular access central venous catheter, unchanged. IMPRESSION: No active disease.
--- NOTE | 2017-12-09 10:08 | CP.CCUPN ---
<Matthieu Duncan - Last Filed: 12/09/17 10:51> CCU Subjective - Physician Review Subjective (Free Text): 12/09/17 10:08 62 y/o M seen and examined at bedside this morning. Unresponsive, Afebrile. Extubated and Reintubated Yesterday due to desaturation episode. Vent settings adjusted this AM to A/C rate of 18, FIO2 40, Vt 450, PEEP 5. Pupils fixed. No corneal reflex. No gag. No cough reflex. No other acute events. CCU Objective - Vital Signs / Intake & Output Vital Signs (Last 4 hours): Vital Signs Temp Pulse Resp BP Pulse Ox 12/09/17 09:46 98.7 F 90 18 121/73 100 12/09/17 08:00 98 F 104 H 18 130/73 100 12/09/17 07:50 98.1 F 106 H 18 136/68 100 Intake and Output (Last 8hrs): Intake & Output 12/08/17 12/09/17 12/09/17 22:59 06:59 14:59 Intake Total 7416 035 7234 Output Total 500 600 Balance 730 -30 1140 Weight 156 lb 3.2 oz Intake: IV 750 Intake, Piggyback 450 Tube Feeding 480 420 240 Free Water Flush 300 150 150 Output: Urine 500 600 2-way Urethral 500 600 - Physical Exam Head: Positive for: Atraumatic, Normocephalic. Negative for: Ecchymosis, Abrasion, Laceration Pupils: Positive for: Non-Reactive. Negative for: PERRL Extroacular Muscles: Negative for: EOMI Conjunctiva: Positive for: Normal. Negative for: Injected, Icteric Mouth: Positive for: Dry Neck: Positive for: Trachea Midline, Other (R. IJ line). Negative for: Meningeal Signs, JVD, Lymphadenopathy Respiratory/Chest: Positive for: Decreased Breath Sounds. Negative for: Clear to Auscultation ( distant breath sounds b/l), Rales, Retracting, Rhonchi Cardiovascular: Positive for: Regular Rate and Rhythm, Normal S1, S2, Peripheal Pulses Present (faint), Tachycardic. Negative for: Rub, Gallop Abdomen: Positive for: Normal Bowel Sounds. Negative for: Distention, Peritoneal Signs Upper Extremity: Positive for: Capillary Refill < 2s. Negative for: Normal Inspection (B/L hand edema), Cyanosis Lower Extremity: Positive for: Capillary Refill < 2 s. Negative for: Edema, NORMAL PULSES (faint), Swelling, Erythema, Temperature Abnormalties Neurological: Negative for: GCS=15 (GCS: 4T), CN II-XII Intact (comatose), Speech Normal (unable to evaluate ), Motor Func Grossly Intact, Normal Sensory Function, Normal Cerebellar Funct Skin: Positive for: Dry, Cold (extremities ). Negative for: Normal Color ( chronic skin hypopigmented lesion B/L LE), Laceration Lymphatic: Negative for: Cervical Adenopathy Psychiatric: Positive for: Other (comatose). Negative for: Alert, Oriented x 3 - Medications Active Medications: Active Medications Generic Name Dose Route Start Last Admin Trade Name Freq PRN Reason Stop Dose Admin Acetaminophen 650 mg 11/27/17 00:56 12/05/17 09:29 Tylenol 650mg/20.3ml Solution Ud PO 650 mg Q6 PRN Administration fever > 100.4 Aspirin 81 mg 11/19/17 09:00 12/09/17 08:31 Aspirin Chewable NG 81 mg DAILY [facility] Administration Atorvastatin Calcium 40 mg 11/17/17 22:00 12/08/17 21:06 Lipitor PO 40 mg HS [facility] Administration Clopidogrel Bisulfate 75 mg 11/18/17 09:45 12/09/17 08:33 Plavix NG 75 mg DAILY [facility] Administration Enoxaparin Sodium 40 mg 11/28/17 09:00 12/09/17 08:33 Lovenox SC 40 mg DAILY [facility] Administration Protocol Famotidine 40 mg 12/02/17 09:00 12/09/17 08:33 Pepcid PO 40 mg DAILY [facility] Administration Folic Acid 1 mg 11/17/17 09:00 12/09/17 08:34 Folic Acid GT 1 mg DAILY [facility] Administration Ciprofloxacin 400 mg in 200 mls @ 200 mls/hr 12/05/17 12:00 12/09/17 08:32 Cipro 400mg/200ml Dsw IVPB 200 mls/hr Q12 [facility] Administration Protocol Vancomycin HCl 1 gm/ Sodium 250 mls @ 166.667 mls/hr 12/08/17 12:56 12/09/17 08:34 Chloride IVPB 166.667 mls/hr Q12 [facility] Administration Protocol Thiamine HCl 100 mg 11/17/17 13:45 12/09/17 08:34 Vitamin B1 Tab NG 100 mg DAILY [facility] Administration - Patient Studies Lab Studies: Microbiology Studies 12/05/17 12:08 Blood Culture - Preliminary Blood NO GROWTH AFTER 3 DAYS 12/05/17 12:08 S.aureus & Coag-Neg Staph PNA FISH - Final Blood Blood Culture - Final Coagulase Neg Staphylococcus Gram Stain - Preliminary Lab Studies 12/09/17 12/09/17 12/09/17 Range/Units 06:00 05:31 04:20 WBC (4.8-10.8) K/uL RBC (4.40-5.90) Mil/uL Hgb (12.0-18.0) g/dL Hct (35.0-51.0) % MCV (80.0-94.0) fl MCH (27.0-31.0) pg MCHC (33.0-37.0) g/dL RDW (11.5-14.5) % Plt Count (130-400) K/uL pCO2 41 (35-45) mm/Hg pO2 71 L (80-100) mm/Hg HCO3 36.0 H (21-28) mmol/L ABG pH 7.57 H (7.35-7.45) ABG Total CO2 38.9 H (22-28) mmol/L ABG O2 Saturation 97.5 (95-98) % ABG O2 Content 13.4 L (15-23) ML/dL ABG Base Excess 14.2 H (-2.0-3.0) mmol/L ABG Hemoglobin 10.0 L (11.7-17.4) g/dL ABG Carboxyhemoglobin 1.6 H (0.5-1.5) % POC ABG HHb (Measured) 2.4 (0.0-5.0) % ABG Methemoglobin 1.1 (0.0-3.0) % ABG O2 Capacity 13.7 L (16-24) mL/dL Roberto Test Yes VBG pH (7.32-7.43) VBG pCO2 (40-60) mmHg VBG HCO3 mmol/L VBG O2 Sat (Calc) (40-65) % VBG Base Excess (0.0-2.0) mmol/L VBG Hgb O2 Saturation (95.0-98.0) % A-a O2 Difference 163.0 mm/Hg Hemoglobin (11.7-17.4) g/dL Hgb O2 Saturation 94.9 L (95.0-98.0) % Vent Mode A/c Mechanical Rate 18 FiO2 40.0 % Tidal Volume 520 PEEP 5 Sodium 136 (132-148) mmol/l Potassium 3.6 (3.6-5.0) MMOL/L Chloride 90 L (98-107) mmol/L Carbon Dioxide 38 H (22-30) mmol/L Anion Gap 12 (10-20) BUN 26 H (9-20) mg/dl Creatinine 0.8 (0.8-1.5) mg/dl Est GFR ( Amer) > 60 Est GFR (Non-Af Amer) > 60 POC Glucose (mg/dL) 142 H (65-110) mg/dL Random Glucose 144 H (75-110) mg/dL Calcium 8.1 L (8.4-10.2) mg/dL Total Bilirubin 0.6 (0.2-1.3) mg/dl AST 110 H (17-59) U/L ALT 58 (21-72) U/L Alkaline Phosphatase 91 (38-126) U/L Total Protein 7.2 (6.3-8.2) G/DL Albumin 2.9 L (3.5-5.0) g/dL Globulin 4.2 H (2.2-3.9) gm/dL Albumin/Globulin Ratio 0.7 L (1.0-2.1) 12/09/17 12/08/17 12/08/17 Range/Units 04:20 21:22 17:22 WBC 11.1 H (4.8-10.8) K/uL RBC 3.20 L (4.40-5.90) Mil/uL Hgb 9.6 L (12.0-18.0) g/dL Hct 28.9 L (35.0-51.0) % MCV 90.6 (80.0-94.0) fl MCH 30.0 (27.0-31.0) pg MCHC 33.1 (33.0-37.0) g/dL RDW 15.6 H (11.5-14.5) % Plt Count 283 (130-400) K/uL pCO2 (35-45) mm/Hg pO2 (80-100) mm/Hg HCO3 (21-28) mmol/L ABG pH (7.35-7.45) ABG Total CO2 (22-28) mmol/L ABG O2 Saturation (95-98) % ABG O2 Content (15-23) ML/dL ABG Base Excess (-2.0-3.0) mmol/L ABG Hemoglobin (11.7-17.4) g/dL ABG Carboxyhemoglobin (0.5-1.5) % POC ABG HHb (Measured) (0.0-5.0) % ABG Methemoglobin (0.0-3.0) % ABG O2 Capacity (16-24) mL/dL Roberto Test VBG pH (7.32-7.43) VBG pCO2 (40-60) mmHg VBG HCO3 mmol/L VBG O2 Sat (Calc) (40-65) % VBG Base Excess (0.0-2.0) mmol/L VBG Hgb O2 Saturation (95.0-98.0) % A-a O2 Difference mm/Hg Hemoglobin (11.7-17.4) g/dL Hgb O2 Saturation (95.0-98.0) % Vent Mode Mechanical Rate FiO2 % Tidal Volume PEEP Sodium (132-148) mmol/l Potassium (3.6-5.0) MMOL/L Chloride (98-107) mmol/L Carbon Dioxide (22-30) mmol/L Anion Gap (10-20) BUN (9-20) mg/dl Creatinine (0.8-1.5) mg/dl Est GFR ( Amer) Est GFR (Non-Af Amer) POC Glucose (mg/dL) 169 H 131 H (65-110) mg/dL Random Glucose (75-110) mg/dL Calcium (8.4-10.2) mg/dL Total Bilirubin (0.2-1.3) mg/dl AST (17-59) U/L ALT (21-72) U/L Alkaline Phosphatase (38-126) U/L Total Protein (6.3-8.2) G/DL Albumin (3.5-5.0) g/dL Globulin (2.2-3.9) gm/dL Albumin/Globulin Ratio (1.0-2.1) 12/08/17 12/08/17 12/08/17 Range/Units 12:50 11:19 10:40 WBC (4.8-10.8) K/uL RBC (4.40-5.90) Mil/uL Hgb (12.0-18.0) g/dL Hct (35.0-51.0) % MCV (80.0-94.0) fl MCH (27.0-31.0) pg MCHC (33.0-37.0) g/dL RDW (11.5-14.5) % Plt Count (130-400) K/uL pCO2 55 H (35-45) mm/Hg pO2 47 114 H (80-100) mm/Hg HCO3 37.6 H (21-28) mmol/L ABG pH 7.49 H (7.35-7.45) ABG Total CO2 43.6 H (22-28) mmol/L ABG O2 Saturation 99.1 H (95-98) % ABG O2 Content 14.6 L (15-23) ML/dL ABG Base Excess 16.3 H (-2.0-3.0) mmol/L ABG Hemoglobin 10.6 L (11.7-17.4) g/dL ABG Carboxyhemoglobin 1.9 H 1.2 (0.5-1.5) % POC ABG HHb (Measured) 12.1 H 0.9 (0.0-5.0) % ABG Methemoglobin 1.3 1.2 (0.0-3.0) % ABG O2 Capacity 14.7 L (16-24) mL/dL Roberto Test Yes VBG pH 7.49 H (7.32-7.43) VBG pCO2 50 (40-60) mmHg VBG HCO3 34.8 mmol/L VBG O2 Sat (Calc) 87.5 H (40-65) % VBG Base Excess 13.0 H (0.0-2.0) mmol/L VBG Hgb O2 Saturation 84.6 L (95.0-98.0) % A-a O2 Difference 102.0 mm/Hg Hemoglobin 11.1 L (11.7-17.4) g/dL Hgb O2 Saturation 96.7 (95.0-98.0) % Vent Mode A/c Mechanical Rate 12 FiO2 40.0 % Tidal Volume 520 PEEP 5 Sodium (132-148) mmol/l Potassium (3.6-5.0) MMOL/L Chloride (98-107) mmol/L Carbon Dioxide (22-30) mmol/L Anion Gap (10-20) BUN (9-20) mg/dl Creatinine (0.8-1.5) mg/dl Est GFR ( Amer) Est GFR (Non-Af Amer) POC Glucose (mg/dL) 125 H (65-110) mg/dL Random Glucose (75-110) mg/dL Calcium (8.4-10.2) mg/dL Total Bilirubin (0.2-1.3) mg/dl AST (17-59) U/L ALT (21-72) U/L Alkaline Phosphatase (38-126) U/L Total Protein (6.3-8.2) G/DL Albumin (3.5-5.0) g/dL Globulin (2.2-3.9) gm/dL Albumin/Globulin Ratio (1.0-2.1) Laboratory Results - last 24 hr 12/08/17 12/08/17 12/08/17 10:40 11:19 12:50 WBC RBC Hgb Hct MCV MCH MCHC RDW Plt Count pCO2 55 H pO2 114 H 47 HCO3 37.6 H ABG pH 7.49 H ABG Total CO2 43.6 H ABG O2 Saturation 99.1 H ABG O2 Content 14.6 L ABG Base Excess 16.3 H ABG Hemoglobin 10.6 L ABG Carboxyhemoglobin 1.2 1.9 H POC ABG HHb (Measured) 0.9 12.1 H ABG Methemoglobin 1.2 1.3 ABG O2 Capacity 14.7 L Roberto Test Yes VBG pH 7.49 H VBG pCO2 50 VBG HCO3 34.8 VBG O2 Sat (Calc) 87.5 H VBG Base Excess 13.0 H VBG Hgb O2 Saturation 84.6 L A-a O2 Difference 102.0 Hemoglobin 11.1 L Hgb O2 Saturation 96.7 Vent Mode A/c Mechanical Rate 12 FiO2 40.0 Tidal Volume 520 PEEP 5 Sodium Potassium Chloride Carbon Dioxide Anion Gap BUN Creatinine Est GFR ( Amer) Est GFR (Non-Af Amer) POC Glucose (mg/dL) 125 H Random Glucose Calcium Total Bilirubin AST ALT Alkaline Phosphatase Total Protein Albumin Globulin Albumin/Globulin Ratio 12/08/17 12/08/17 12/09/17 17:22 21:22 04:20 WBC 11.1 H RBC 3.20 L Hgb 9.6 L Hct 28.9 L MCV 90.6 MCH 30.0 MCHC 33.1 RDW 15.6 H Plt Count 283 pCO2 pO2 HCO3 ABG pH ABG Total CO2 ABG O2 Saturation ABG O2 Content ABG Base Excess ABG Hemoglobin ABG Carboxyhemoglobin POC ABG HHb (Measured) ABG Methemoglobin ABG O2 Capacity Roberto Test VBG pH VBG pCO2 VBG HCO3 VBG O2 Sat (Calc) VBG Base Excess VBG Hgb O2 Saturation A-a O2 Difference Hemoglobin Hgb O2 Saturation Vent Mode Mechanical Rate FiO2 Tidal Volume PEEP Sodium Potassium Chloride Carbon Dioxide Anion Gap BUN Creatinine Est GFR ( Amer) Est GFR (Non-Af Amer) POC Glucose (mg/dL) 131 H 169 H Random Glucose Calcium Total Bilirubin AST ALT Alkaline Phosphatase Total Protein Albumin Globulin Albumin/Globulin Ratio 12/09/17 12/09/17 12/09/17 04:20 05:31 06:00 WBC RBC Hgb Hct MCV MCH MCHC RDW Plt Count pCO2 41 pO2 71 L HCO3 36.0 H ABG pH 7.57 H ABG Total CO2 38.9 H ABG O2 Saturation 97.5 ABG O2 Content 13.4 L ABG Base Excess 14.2 H ABG Hemoglobin 10.0 L ABG Carboxyhemoglobin 1.6 H POC ABG HHb (Measured) 2.4 ABG Methemoglobin 1.1 ABG O2 Capacity 13.7 L Roberto Test Yes VBG pH VBG pCO2 VBG HCO3 VBG O2 Sat (Calc) VBG Base Excess VBG Hgb O2 Saturation A-a O2 Difference 163.0 Hemoglobin Hgb O2 Saturation 94.9 L Vent Mode A/c Mechanical Rate 18 FiO2 40.0 Tidal Volume 520 PEEP 5 Sodium 136 Potassium 3.6 Chloride 90 L Carbon Dioxide 38 H Anion Gap 12 BUN 26 H Creatinine 0.8 Est GFR ( Amer) > 60 Est GFR (Non-Af Amer) > 60 POC Glucose (mg/dL) 142 H Random Glucose 144 H Calcium 8.1 L Total Bilirubin 0.6 AST 110 H ALT 58 Alkaline Phosphatase 91 Total Protein 7.2 Albumin 2.9 L Globulin 4.2 H Albumin/Globulin Ratio 0.7 L Fingerstick Blood Sugar Results: 142 Review of Systems - Review of Systems Systems not reviewed;Unavailable: Altered Mental Status (comatose) Critical Care Progress Note - Ventilator Checklist Head of Bed 30 Degrees: Yes Daily Sedation Vacation: No (not sedated) Daily Assessment of Readiness to Wean: No Daily Spontaneous Breathing Trial: No PUD Prophalyxis: Yes DVT Prophylaxis: Yes Oral Care with Chlorhexidine Gluconate {CHG}: Yes - Vent Settings MODE:: ASSIST CONTROL TIDAL VOLUME:: 450 RESP RATE:: 18 FIO2:: 40 PEEP:: 5 - Extremities/Vascular Does the Patient have a Central Venous Catheter?: Yes Insertion Site: Internal Jugular Vein Does the Patient need a Central Venous Catheter?: Yes Does the Patient have a Holloway Catheter?: Yes Does the Patient need a Holloway Catheter?: Yes Catheter Insertion Criteria: Patient requires prolonged immobilization - Prophylaxis GI Prophylaxis GI: Pepsid - Prophylaxis DVT Prophylaxis DVT: Lovenox - Nutrition Nutrition: OG tube feedings Assessment/Plan - Assessment and Plan (Free Text) Assessment: 63 y/o male, with unobtainable medical history, admitted to hospital for AMS of uncertain etiology, transferred to ICU due to worsening mental status, tachypnea , and desaturation, 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 Comatose Altered Mental Status secondary to Acute Pontine infarct with extension to midbrain -Brain MRI: acute pontine infaract with extension to midbrain. Smaller cerebellar infarcts b/l -Intubated -GCS 4T -c/w respiratory support and tube feedings -aspirin/plavix as per neuro -atorvastatin 40mg -poor prognosis/Ethic committee review. guardianship pending Acid-base imbalance Currently Alkalotic PH 7.57, HCO3 36 PCO2 normalized Will readjust vent setting and will repeat ABG Meds reviewed. No signs of sepsis or significant electrolyte imbalance Coagulase Negative Staph Bacteremia: -C/W Vancomycin 1gm Q12H. Day 2 -Vanco trough 12/09 @ 20:30, goal 15-20 -ID on board, awaiting further recommendations -WBC: 11.1 Respiratory Failure secondary to AMS -2/2 to Acute CVA -intubated -continues to trigger vent -Rate 18, Vt 450, FIO2 40.0, PEEP 5 -Will repeat ABG HyperCapnia Resolved Sepsis secondary to Aspiration Pneumonitis Resolved Anemia of Unknown Etiology -H/H trending down 9.6/28.9 -No clinical evidence of acute bleeding -monitor H/H and VS Prophylaxis -Head of bed elevation @ 30 degrees -Pepcid 40 mg daily -Lovenox 40mg SC QD -SCDs Code Status: -DNR -Overall extremely poor prognosis <Talib Montejo - Last Filed: 12/09/17 18:24> CCU Subjective - Physician Review Subjective (Free Text): Attestation: Patient seen and examined at the bedside with Resident Dr. Jayson Duncan; and I agree with his outline of plans and management documented below as discussed on AM rounds reflecting my review of all applicable clinical data, and participation in the care of the patient throughout the day in ICU; today, December 09, 2017.
[2017-12-09 11:13] LABS: ABG ALLEN TEST YES; ARTERIAL BLOOD GAS HCO3 34.7 mmol/L (21-28); ARTERIAL BLOOD GAS HEMOGLOBIN 9.9 g/dL (11.7-17.4); ARTERIAL BLOOD GAS O2 CAPACITY 13.8 mL/dL (16-24); ARTERIAL BLOOD GAS O2 CONTENT 13.6 ML/dL (15-23); ARTERIAL BLOOD GAS O2 SAT 98.6 % (95-98); ARTERIAL BLOOD GAS PCO2 45 mm/Hg (35-45); ARTERIAL BLOOD GAS PH 7.52 (7.35-7.45); ARTERIAL BLOOD GAS PO2 88 mm/Hg (80-100); ARTERIAL BLOOD GAS TCO2 38.1 mmol/L (22-28)
[2017-12-09 15:31] LABS: ABG ALLEN TEST YES; ARTERIAL BLOOD GAS HCO3 34.8 mmol/L (21-28); ARTERIAL BLOOD GAS HEMOGLOBIN 10.1 g/dL (11.7-17.4); ARTERIAL BLOOD GAS O2 CAPACITY 14.1 mL/dL (16-24); ARTERIAL BLOOD GAS O2 SAT 99.2 % (95-98); ARTERIAL BLOOD GAS PCO2 48 mm/Hg (35-45); ARTERIAL BLOOD GAS PO2 111 mm/Hg (80-100); ARTERIAL BLOOD GAS TCO2 38.9 mmol/L (22-28)
[2017-12-09] MEDS: Acetaminophen 650mg/20.3ml solution UD PO PRN (17:00)
[2017-12-10 05:35] LABS: MEAN CELL VOLUME 90.5 fl (80.0-94.0); MEAN CORPUSCULAR HEMOGLOBIN 29.6 pg (27.0-31.0); MEAN CORPUSCULAR HGB CONC 32.7 g/dL (33.0-37.0); RBC 3.15 Mil/uL (4.40-5.90); RED CELL DISTRIBUTION WIDTH 15.9 % (11.5-14.5); WHITE BLOOD COUNT 11.6 K/uL (4.8-10.8)
[2017-12-10 05:45] LABS: BLOOD UREA NITROGEN 23 mg/dl (9-20); CALCIUM 7.6 mg/dL (8.4-10.2); GFR AFRICAN-AMERICAN > 60; GFR NON-AFRICAN AMERICAN > 60
[2017-12-10 05:53] LABS: ABG ALLEN TEST YES; ARTERIAL BLOOD GAS HCO3 35.5 mmol/L (21-28); ARTERIAL BLOOD GAS HEMOGLOBIN 9.6 g/dL (11.7-17.4); ARTERIAL BLOOD GAS O2 CAPACITY 13.3 mL/dL (16-24); ARTERIAL BLOOD GAS O2 CONTENT 13.2 ML/dL (15-23); ARTERIAL BLOOD GAS PCO2 49 mm/Hg (35-45); ARTERIAL BLOOD GAS PO2 95 mm/Hg (80-100); ARTERIAL BLOOD GAS TCO2 39.7 mmol/L (22-28)
[2017-12-10 05:58] LABS: HEMOGLOBIN 9.3 g/dL (12.0-18.0)
--- NOTE | 2017-12-10 07:40 | CP.PCM.PN ---
Subjective - Date & Time of Evaluation Date of Evaluation: 12/10/17 Time of Evaluation: 08:00 - Subjective Subjective: Patient seen and examined bedside. Intubated on MV PRVC AC mode 18/450/5/40 % with ABG 49/95/35/7.5. Hemodynamically stable, not on pressors BP 108/66 HR 99 with Tmax 100 last 12 hours. Not sedated , unresponsive to verbal or noxious stimuli Pupils fixed , unresponsive to light, gag reflex not elicited. No acute changes overnight CXR showed no active disease WBC 11 Hgb 9.3 BUN/Cr 23/0/6 Na 134 K 3.2 Objective - Vital Signs/Intake and Output Vital Signs (last 24 hours): Temp Pulse Resp BP Pulse Ox 100 F H 90 18 108/66 100 12/10/17 04:00 12/10/17 06:00 12/10/17 06:00 12/10/17 06:00 12/10/17 06:00 Intake and Output: 12/10/17 12/10/17 06:59 18:59 Intake Total 1620 Output Total 550 Balance 1070 - Medications Medications: Current Medications Acetaminophen (Tylenol 650mg/20.3ml Solution Ud) 650 mg PO Q6 PRN PRN Reason: fever > 100.4 Last Admin: 12/09/17 17:00 Dose: 650 mg Aspirin (Aspirin Chewable) 81 mg NG DAILY [facility] Last Admin: 12/09/17 08:31 Dose: 81 mg Atorvastatin Calcium (Lipitor) 40 mg PO HS [facility] Last Admin: 12/09/17 21:34 Dose: 40 mg Clopidogrel Bisulfate (Plavix) 75 mg NG DAILY [facility] Last Admin: 12/09/17 08:33 Dose: 75 mg Enoxaparin Sodium (Lovenox) 40 mg SC DAILY [facility] PRN Reason: Protocol Last Admin: 12/09/17 08:33 Dose: 40 mg Famotidine (Pepcid) 40 mg PO DAILY [facility] Last Admin: 12/09/17 08:33 Dose: 40 mg Folic Acid (Folic Acid) 1 mg GT DAILY [facility] Last Admin: 12/09/17 08:34 Dose: 1 mg Ciprofloxacin (Cipro 400mg/200ml Dsw) 400 mg in 200 mls @ 200 mls/hr IVPB Q12 [facility] PRN Reason: Protocol Last Admin: 12/09/17 21:31 Dose: 200 mls/hr Vancomycin HCl 1 gm/ Sodium (Chloride) 250 mls @ 166.667 mls/hr IVPB Q12 [facility] PRN Reason: Protocol Last Admin: 12/09/17 21:31 Dose: 166.667 mls/hr Thiamine HCl (Vitamin B1 Tab) 100 mg NG DAILY [facility] Last Admin: 12/09/17 08:34 Dose: 100 mg - Labs Labs: 12/10/17 04:19 12/10/17 04:19 PT 14.1 Seconds (9.8-13.1) H 12/01/17 09:44 INR 1.3 (0.9-1.2) H 12/01/17 09:44 APTT 34.4 Seconds (25.6-37.1) 12/01/17 09:44 - Constitutional Appears: Other (intubated , comatose) - Head Exam Head Exam: ATRAUMATIC, NORMOCEPHALIC - Eye Exam Pupil Exam: Fixed - ENT Exam ENT Exam: Mucous Membranes Dry - Neck Exam Neck Exam: Normal Inspection - Respiratory Exam Respiratory Exam: Clear to Ausculation Bilateral, NORMAL BREATHING PATTERN. absent: Rales, Rhonchi, Wheezes, Respiratory Distress - Cardiovascular Exam Cardiovascular Exam: REGULAR RHYTHM, RRR, +S1, +S2. absent: JVD - GI/Abdominal Exam GI & Abdominal Exam: Soft, Normal Bowel Sounds. absent: Distended, Guarding, Tenderness, Rebound - Rectal Exam Rectal Exam: Deferred - Extremities Exam Extremities Exam: absent: Joint Swelling, Pedal Edema - Neurological Exam Additional comments: comatose does not respond to verbal or noxious stimuli pupils fixed no gag reflex - Skin Skin Exam: Dry, Warm Additional comments: bilateral hip large hypopigmented areas Assessment and Plan - Assessment and Plan (Free Text) Assessment: White male , admitted as Tez White , now indentified by Police as Jesus Grayson , unknown PMH was brought by EMS after he was observed by bystanders falling in the street. Patient was lethargic on admission however arousable , noted to have a facial droop and his speech was slurred. CT head on admission showed no acute pathology , chronic white matter changes , old bilateral basal nuclei and cerebellar infarct On 11/16 noted to be obtunded ,unable to clear his secretions, tachypneic and saturation in the 80%. He was transferred to ICU and intubated for airway protection. Repeat CT of head showed no change but MRI showed pontine, midbrain, cerebellar hemispheres and thalami infarct. 11/22: With episode of vomiting and possible aspiration became hypotensive, tachycardic, febrile, hypoxemic Patient has been comatose ever since and intubated , maintaining his BP and breathing over the vent Repeat CT head 11/28 showed :Gross edematous changes affect cerebellar hemispheres bilaterally sparing only the inferior margins somewhat and causing compression on the the mid to lower brainstem. The 4th ventricle is partially effaced but no obstructive hydrocephalus appreciated at this time. Edema has extend into the bilateral thalami, right greater than left further indicative of expanding infarction. No intracranial hemorrhage. Ethics Committee meeting recommended Emergency guardianship which is in progress. Given patient's poor prognosis medical team following him has decided that it is appropriate a Do not Escalate treatment and DNR order to be in place. 1. Acute CVA/ Coma state Patient is comatose , with fixed pupils, no gag reflex, does not respond to verbal or noxious stimuli , breathing over the vent ( not brain ) MRI brain showed pontine , midbrain, cerebellar hemispheres and thalamic infarct Repeat CT of head 11/28 showed :Gross edematous changes affect cerebellar hemispheres bilaterally sparing only the inferior margins somewhat and causing compression on the the mid to lower brainstem. The 4th ventricle is partially effaced but no obstructive hydrocephalus appreciated at this time. Edema has extend into the bilateral thalami, right greater than left further indicative of expanding infarction. No intracranial hemorrhage. Poor Prognosis Neurology on consult Continue ASA, Statin, Plavix [employer] has been notified Ethics Committee met -rec application for emergency guardianship Given patient's poor prognosis medical team following him has decided that it is appropriate a Do not Escalate treatment and DNR order to be in place. 2. Sepsis due to Aspiration Pneumonia Still orally Intubated since 11/16 ( ET tube changed 12/09) on Vent (PVRC/AC 18/450 /5/40%) BP has improved, off levophed drip , afebrile , WBC trended down procalcitonin was elevated 79 trachea aspirate: positive for Citrobacter and 1 blood cx positive for Staph coag negative On Vanco and Cipro at present ID consulted : Dr. Anderson Keep HOB elevated , aspiration, precautions,respiratory toilet with frequent suctioning 3. UTI urine cx positive for Strep viridans completed treatment with Vanco IV for 2 weeks 4. ? Alcoholism unclear if alcoholic, cannot obtain hx however ED note stated that patient has history of ETOH ETOH level low urine Tox : neg Thiamine and FA 5.DVT prophylaxis Acute Lovenox
[2017-12-10] MEDS: Ciprofloxacin 400mg/200ml D5W 400 MG/200 ML BAG IVPB SCH ×2 (08:12→20:08)
[2017-12-10] MEDS: Enoxaparin 40 mg Syringe SC SCH (08:13)
[2017-12-10] MEDS ORDERED: Potassium Chloride 20 mEq/15 ml LIQ UD PO ONE (08:34)
--- NOTE | 2017-12-10 13:38 | CP.CCUPN ---
CCU Subjective - Physician Review Events Since Last Encounter (Free Text): 12/10/17 13:36 intubated, unresponsive, no change or improvement in his condition, prognosis is poor, . CCU Objective - Vital Signs / Intake & Output Vital Signs (Last 4 hours): Vital Signs Temp Pulse Resp BP Pulse Ox 12/10/17 12:00 96 F L 74 18 111/63 100 12/10/17 10:00 95.8 F L 77 18 128/56 L 199 H Intake and Output (Last 8hrs): Intake & Output 12/09/17 12/10/17 12/10/17 22:59 06:59 14:59 Intake Total 1230 780 758 Output Total 601 550 Balance 629 230 758 Weight 156 lb Intake: IV 8 Intake, Piggyback 450 450 Tube Feeding 480 480 300 Free Water Flush 300 300 Output: Urine 600 550 2-way Urethral 600 550 Stool 1 - Physical Exam Narrative Physical Exam (Free Text): 12/10/17 13:37 P/E Neck: No Jvd Lungs: Rt basal crackles abdomen: soft Ext: +1 edema Neuro: comotos , unresponsive Head: Positive for: Atraumatic, Normocephalic. Negative for: Ecchymosis, Abrasion, Laceration Pupils: Positive for: Non-Reactive. Negative for: PERRL Extroacular Muscles: Negative for: EOMI Conjunctiva: Positive for: Normal. Negative for: Injected, Icteric Ears: Positive for: Normal Mouth: Positive for: Dry Pharnyx: Positive for: Normal. Negative for: ERYTHEMA, EXUDATE, TONSILS ENLARGED Neck: Positive for: Trachea Midline, Other (R. IJ line). Negative for: Meningeal Signs, JVD, Lymphadenopathy Respiratory/Chest: Positive for: Decreased Breath Sounds. Negative for: Clear to Auscultation ( distant breath sounds b/l), Rales, Retracting, Rhonchi Cardiovascular: Positive for: Regular Rate and Rhythm, Normal S1, S2, Peripheal Pulses Present (faint), Tachycardic. Negative for: Rub, Gallop Abdomen: Positive for: Normal Bowel Sounds. Negative for: Distention, Peritoneal Signs Upper Extremity: Positive for: Capillary Refill < 2s. Negative for: Normal Inspection (B/L hand edema), Cyanosis Lower Extremity: Positive for: Capillary Refill < 2 s. Negative for: Edema, NORMAL PULSES (faint), Swelling, Erythema, Temperature Abnormalties Neurological: Negative for: GCS=15 (GCS: 4T), CN II-XII Intact (comatose), Speech Normal (unable to evaluate ), Motor Func Grossly Intact, Normal Sensory Function, Normal Cerebellar Funct Skin: Positive for: Dry, Cold (extremities ). Negative for: Normal Color ( chronic skin hypopigmented lesion B/L LE), Laceration Lymphatic: Negative for: Cervical Adenopathy Psychiatric: Positive for: Other (comatose). Negative for: Alert, Oriented x 3 - Medications Active Medications: Active Medications Generic Name Dose Route Start Last Admin Trade Name Freq PRN Reason Stop Dose Admin Acetaminophen 650 mg 11/27/17 00:56 12/09/17 17:00 Tylenol 650mg/20.3ml Solution Ud PO 650 mg Q6 PRN Administration fever > 100.4 Aspirin 81 mg 11/19/17 09:00 12/10/17 08:12 Aspirin Chewable NG 81 mg DAILY ZIA Administration Atorvastatin Calcium 40 mg 11/17/17 22:00 12/09/17 21:34 Lipitor PO 40 mg HS ZIA Administration Clopidogrel Bisulfate 75 mg 11/18/17 09:45 12/10/17 08:13 Plavix NG 75 mg DAILY ZIA Administration Enoxaparin Sodium 40 mg 11/28/17 09:00 12/10/17 08:13 Lovenox SC 40 mg DAILY ZIA Administration Protocol Famotidine 40 mg 12/02/17 09:00 12/10/17 08:16 Pepcid PO 40 mg DAILY ZIA Administration Folic Acid 1 mg 11/17/17 09:00 12/10/17 08:13 Folic Acid GT 1 mg DAILY ZIA Administration Ciprofloxacin 400 mg in 200 mls @ 200 mls/hr 12/05/17 12:00 12/10/17 08:12 Cipro 400mg/200ml Dsw IVPB 200 mls/hr Q12 ZIA Administration Protocol Vancomycin HCl 1 gm/ Sodium 250 mls @ 166.667 mls/hr 12/08/17 12:56 12/10/17 08:13 Chloride IVPB 166.667 mls/hr Q12 ZIA Administration Protocol Thiamine HCl 100 mg 11/17/17 13:45 12/10/17 08:14 Vitamin B1 Tab NG 100 mg DAILY ZIA Administration - Patient Studies Lab Studies: Microbiology Studies 12/05/17 12:08 Blood Culture - Final Blood NO GROWTH AFTER 5 DAYS Gram Stain - Final TEST NOT PERFORMED Lab Studies 12/10/17 12/10/17 12/10/17 Range/Units 05:40 04:19 04:19 WBC (4.8-10.8) K/uL RBC (4.40-5.90) Mil/uL Hgb (12.0-18.0) g/dL Hct (35.0-51.0) % MCV (80.0-94.0) fl MCH (27.0-31.0) pg MCHC (33.0-37.0) g/dL RDW (11.5-14.5) % Plt Count (130-400) K/uL pCO2 49 H (35-45) mm/Hg pO2 95 (80-100) mm/Hg HCO3 35.5 H (21-28) mmol/L ABG pH 7.50 H (7.35-7.45) ABG Total CO2 39.7 H (22-28) mmol/L ABG O2 Saturation 99.0 H (95-98) % ABG O2 Content 13.2 L (15-23) ML/dL ABG Base Excess 13.5 H (-2.0-3.0) mmol/L ABG Hemoglobin 9.6 L (11.7-17.4) g/dL ABG Carboxyhemoglobin 1.3 (0.5-1.5) % POC ABG HHb (Measured) 1.0 (0.0-5.0) % ABG Methemoglobin 1.0 (0.0-3.0) % ABG O2 Capacity 13.3 L (16-24) mL/dL Roberto Test Yes A-a O2 Difference 129.0 mm/Hg Hgb O2 Saturation 96.7 (95.0-98.0) % Vent Mode Prvc/ac Mechanical Rate 18 FiO2 40.0 % Tidal Volume 450 PEEP 5 Sodium 134 (132-148) mmol/l Potassium 3.2 L (3.6-5.0) MMOL/L Chloride 90 L (98-107) mmol/L Carbon Dioxide 35 H (22-30) mmol/L Anion Gap 12 (10-20) BUN 23 H (9-20) mg/dl Creatinine 0.6 L (0.8-1.5) mg/dl Est GFR ( Amer) > 60 Est GFR (Non-Af Amer) > 60 POC Glucose (mg/dL) (65-110) mg/dL Random Glucose 135 H (75-110) mg/dL Calcium 7.6 L (8.4-10.2) mg/dL Random Vancomycin 14.7 ug/mL 12/10/17 12/09/17 12/09/17 Range/Units 04:19 22:55 15:23 WBC 11.6 H (4.8-10.8) K/uL RBC 3.15 L (4.40-5.90) Mil/uL Hgb 9.3 L (12.0-18.0) g/dL Hct 28.5 L (35.0-51.0) % MCV 90.5 (80.0-94.0) fl MCH 29.6 (27.0-31.0) pg MCHC 32.7 L (33.0-37.0) g/dL RDW 15.9 H (11.5-14.5) % Plt Count 236 (130-400) K/uL pCO2 48 H (35-45) mm/Hg pO2 111 H (80-100) mm/Hg HCO3 34.8 H (21-28) mmol/L ABG pH 7.50 H (7.35-7.45) ABG Total CO2 38.9 H (22-28) mmol/L ABG O2 Saturation 99.2 H (95-98) % ABG O2 Content 14.0 L (15-23) ML/dL ABG Base Excess 12.7 H (-2.0-3.0) mmol/L ABG Hemoglobin 10.1 L (11.7-17.4) g/dL ABG Carboxyhemoglobin 1.2 (0.5-1.5) % POC ABG HHb (Measured) 0.8 (0.0-5.0) % ABG Methemoglobin 0.7 (0.0-3.0) % ABG O2 Capacity 14.1 L (16-24) mL/dL Roberto Test Yes A-a O2 Difference 114.0 mm/Hg Hgb O2 Saturation 97.2 (95.0-98.0) % Vent Mode Prvc/ac Mechanical Rate 18 FiO2 40.0 % Tidal Volume 450 PEEP 5 Sodium (132-148) mmol/l Potassium (3.6-5.0) MMOL/L Chloride (98-107) mmol/L Carbon Dioxide (22-30) mmol/L Anion Gap (10-20) BUN (9-20) mg/dl Creatinine (0.8-1.5) mg/dl Est GFR ( Amer) Est GFR (Non-Af Amer) POC Glucose (mg/dL) 140 H (65-110) mg/dL Random Glucose (75-110) mg/dL Calcium (8.4-10.2) mg/dL Random Vancomycin ug/mL Laboratory Results - last 24 hr 12/09/17 12/09/17 12/10/17 15:23 22:55 04:19 WBC 11.6 H RBC 3.15 L Hgb 9.3 L Hct 28.5 L MCV 90.5 MCH 29.6 MCHC 32.7 L RDW 15.9 H Plt Count 236 pCO2 48 H pO2 111 H HCO3 34.8 H ABG pH 7.50 H ABG Total CO2 38.9 H ABG O2 Saturation 99.2 H ABG O2 Content 14.0 L ABG Base Excess 12.7 H ABG Hemoglobin 10.1 L ABG Carboxyhemoglobin 1.2 POC ABG HHb (Measured) 0.8 ABG Methemoglobin 0.7 ABG O2 Capacity 14.1 L Roberto Test Yes A-a O2 Difference 114.0 Hgb O2 Saturation 97.2 Vent Mode Prvc/ac Mechanical Rate 18 FiO2 40.0 Tidal Volume 450 PEEP 5 Sodium Potassium Chloride Carbon Dioxide Anion Gap BUN Creatinine Est GFR ( Amer) Est GFR (Non-Af Amer) POC Glucose (mg/dL) 140 H Random Glucose Calcium Random Vancomycin 12/10/17 12/10/17 12/10/17 04:19 04:19 05:40 WBC RBC Hgb Hct MCV MCH MCHC RDW Plt Count pCO2 49 H pO2 95 HCO3 35.5 H ABG pH 7.50 H ABG Total CO2 39.7 H ABG O2 Saturation 99.0 H ABG O2 Content 13.2 L ABG Base Excess 13.5 H ABG Hemoglobin 9.6 L ABG Carboxyhemoglobin 1.3 POC ABG HHb (Measured) 1.0 ABG Methemoglobin 1.0 ABG O2 Capacity 13.3 L Roberto Test Yes A-a O2 Difference 129.0 Hgb O2 Saturation 96.7 Vent Mode Prvc/ac Mechanical Rate 18 FiO2 40.0 Tidal Volume 450 PEEP 5 Sodium 134 Potassium 3.2 L Chloride 90 L Carbon Dioxide 35 H Anion Gap 12 BUN 23 H Creatinine 0.6 L Est GFR ( Amer) > 60 Est GFR (Non-Af Amer) > 60 POC Glucose (mg/dL) Random Glucose 135 H Calcium 7.6 L Random Vancomycin 14.7 Fingerstick Blood Sugar Results: 142 Assessment/Plan - Assessment and Plan (Free Text) Assessment: 1. Acute CVA/ Coma state Comatose , with fixed pupils, no gag reflex, does not respond to verbal or noxious stimuli , breathing over the vent ( not brain ) CVA with pontine , midbrain, cerebellar hemispheres and thalamic infarct Gross edematous changes affect cerebellar hemispheres bilaterally sparing only the inferior margins somewhat and causing compression on the the mid to lower brainstem. The 4th ventricle is partially effaced but no obstructive hydrocephalus appreciated at this time. Edema has extend into the bilateral thalami, right greater than left further indicative of expanding infarction. No intracranial hemorrhage. Poor Prognosis Ethics Committee met -rec application for emergency guardianship Given patient's poor prognosis medical team following him has decided that it is appropriate a Do not Escalate treatment and DNR order to be in place. 2. Res Failure, Sepsis , Aspiration Pneumonia Intubated since 11/16 ( ET tube changed 12/09) on Vent (PVRC/AC 18/450/5/40%) BP stable off pressors afebrile , WBC trended down trachea aspirate: positive for Citrobacter and 1 blood cx positive for Staph coag negative On Vanco and Cipro Keep HOB elevated , aspiration, precautions,respiratory toilet with frequent suctioning 3. UTI urine cx positive for Strep viridans completed treatment with Vanco IV for 2 weeks 4.DVT prophylaxis Acute Lovenox
[2017-12-11 05:46] LABS: ABG ALLEN TEST YES; ARTERIAL BLOOD GAS HCO3 34.7 mmol/L (21-28); ARTERIAL BLOOD GAS HEMOGLOBIN 9.3 g/dL (11.7-17.4); ARTERIAL BLOOD GAS O2 CONTENT 12.8 ML/dL (15-23); ARTERIAL BLOOD GAS O2 SAT 98.8 % (95-98); ARTERIAL BLOOD GAS PCO2 49 mm/Hg (35-45); ARTERIAL BLOOD GAS PH 7.49 (7.35-7.45); ARTERIAL BLOOD GAS PO2 86 mm/Hg (80-100); ARTERIAL BLOOD GAS TCO2 38.8 mmol/L (22-28)
[2017-12-11 05:52] LABS: HEMOGLOBIN 8.9 g/dL (12.0-18.0); MEAN CORPUSCULAR HGB CONC 32.6 g/dL (33.0-37.0); RBC 2.96 Mil/uL (4.40-5.90); RED CELL DISTRIBUTION WIDTH 16.2 % (11.5-14.5); WHITE BLOOD COUNT 10.9 K/uL (4.8-10.8)
[2017-12-11 06:08] LABS: BLOOD UREA NITROGEN 19 mg/dl (9-20); CALCIUM 7.8 mg/dL (8.4-10.2); GFR AFRICAN-AMERICAN > 60; GFR NON-AFRICAN AMERICAN > 60
--- NOTE | 2017-12-11 07:10 | CP.PCM.PN ---
Subjective - Date & Time of Evaluation Date of Evaluation: 12/11/17 Time of Evaluation: 07:09 - Subjective Subjective: pt intubated, sedated vitals reviewed, hd stable fixed pupils, cont to breathe over vent, nad Objective - Vital Signs/Intake and Output Vital Signs (last 24 hours): Temp Pulse Resp BP Pulse Ox 99.5 F 83 18 117/74 100 12/11/17 04:00 12/11/17 06:00 12/11/17 06:00 12/11/17 06:00 12/11/17 06:00 Intake and Output: 12/11/17 12/11/17 06:59 18:59 Intake Total 1570 Balance 1570 - Medications Medications: Current Medications Acetaminophen (Tylenol 650mg/20.3ml Solution Ud) 650 mg PO Q6 PRN PRN Reason: fever > 100.4 Last Admin: 12/09/17 17:00 Dose: 650 mg Aspirin (Aspirin Chewable) 81 mg NG DAILY [facility] Last Admin: 12/10/17 08:12 Dose: 81 mg Atorvastatin Calcium (Lipitor) 40 mg PO HS [facility] Last Admin: 12/10/17 21:33 Dose: 40 mg Clopidogrel Bisulfate (Plavix) 75 mg NG DAILY [facility] Last Admin: 12/10/17 08:13 Dose: 75 mg Enoxaparin Sodium (Lovenox) 40 mg SC DAILY [facility] PRN Reason: Protocol Last Admin: 12/10/17 08:13 Dose: 40 mg Famotidine (Pepcid) 40 mg PO DAILY [facility] Last Admin: 12/10/17 08:16 Dose: 40 mg Folic Acid (Folic Acid) 1 mg GT DAILY [facility] Last Admin: 12/10/17 08:13 Dose: 1 mg Ciprofloxacin (Cipro 400mg/200ml Dsw) 400 mg in 200 mls @ 200 mls/hr IVPB Q12 [facility]IA PRN Reason: Protocol Last Admin: 12/10/17 20:08 Dose: 200 mls/hr Vancomycin HCl 1 gm/ Sodium (Chloride) 250 mls @ 166.667 mls/hr IVPB Q12 ZIA PRN Reason: Protocol Last Admin: 12/10/17 20:07 Dose: 166.667 mls/hr Thiamine HCl (Vitamin B1 Tab) 100 mg NG DAILY [facility] Last Admin: 12/10/17 08:14 Dose: 100 mg - Labs Labs: 12/11/17 04:31 12/11/17 04:31 PT 14.1 Seconds (9.8-13.1) H 12/01/17 09:44 INR 1.3 (0.9-1.2) H 12/01/17 09:44 APTT 34.4 Seconds (25.6-37.1) 12/01/17 09:44 - Additional Findings Additional findings: Vitals Reviewed GEN: intubated sedated HEENT: NCAT, PERRL, EOMI HEART: RRR, +S1S2, NO MRG LUNG: CTAB, NO WRR ABD: soft, ND, No HSM, No masses EXT: normal pedal pulses, normal capillary refill NEURO: fixed pupils, not responsive to verbal or noxious stim SKIN: warm, dry PSYCH: unable to assess at this time Assessment and Plan - Assessment and Plan (Free Text) Plan: White male , admitted as Tez White , now indentified by Police as Jesus Grayson , unknown PMH was brought by EMS after he was observed by bystanders falling in the street. Patient was lethargic on admission however arousable , noted to have a facial droop and his speech was slurred. CT head on admission showed no acute pathology , chronic white matter changes , old bilateral basal nuclei and cerebellar infarct On 11/16 noted to be obtunded ,unable to clear his secretions, tachypneic and saturation in the 80%. He was transferred to ICU and intubated for airway protection. Repeat CT of head showed no change but MRI showed pontine, midbrain, cerebellar hemispheres and thalami infarct. 11/22: With episode of vomiting and possible aspiration became hypotensive, tachycardic, febrile, hypoxemic Patient has been comatose ever since and intubated , maintaining his BP and breathing over the vent Repeat CT head 11/28 showed :Gross edematous changes affect cerebellar hemispheres bilaterally sparing only the inferior margins somewhat and causing compression on the the mid to lower brainstem. The 4th ventricle is partially effaced but no obstructive hydrocephalus appreciated at this time. Edema has extend into the bilateral thalami, right greater than left further indicative of expanding infarction. No intracranial hemorrhage. Ethics Committee meeting recommended Emergency guardianship which is in progress. Given patient's poor prognosis medical team following him has decided that it is appropriate a Do not Escalate treatment and DNR order to be in place. 6/3/18 - no new changes in patient condition, cont to breathe over vent, fixed pupils. 1. Acute CVA/ Coma state Patient is comatose , with fixed pupils, no gag reflex, does not respond to verbal or noxious stimuli, breathing over the vent ( not brain ) MRI brain showed pontine , midbrain, cerebellar hemispheres and thalamic infarct Repeat CT of head 11/28 showed :Gross edematous changes affect cerebellar hemispheres bilaterally sparing only the inferior margins somewhat and causing compression on the the mid to lower brainstem. The 4th ventricle is partially effaced but no obstructive hydrocephalus appreciated at this time. Edema has extend into the bilateral thalami, right greater than left further indicative of expanding infarction. No intracranial hemorrhage. Poor Prognosis Neurology on consult Continue ASA, Statin, Plavix [employer] network has been notified Ethics Committee met -rec application for emergency guardianship Given patient's poor prognosis medical team following him has decided that it is appropriate a Do not Escalate treatment and DNR order to be in place. 2. Sepsis due to Aspiration Pneumonia Still orally Intubated since 11/16 ( ET tube changed 12/09) on Vent (PVRC/AC 18/450 /5/40%) BP has improved, off levophed drip , afebrile , WBC trended down procalcitonin was elevated 79 trachea aspirate: positive for Citrobacter and 1 blood cx positive for Staph coag negative On Vanco and Cipro at present ID consulted : Dr. Anderson Keep HOB elevated , aspiration, precautions,respiratory toilet with frequent suctioning 3. UTI urine cx positive for Strep viridans completed treatment with Vanco IV for 2 weeks 4. ? Alcoholism unclear if alcoholic, cannot obtain hx however ED note stated that patient has history of ETOH ETOH level low urine Tox : neg Thiamine and FA 5.DVT prophylaxis Acute Lovenox
[2017-12-11] MEDS: Ciprofloxacin 400mg/200ml D5W 400 MG/200 ML BAG IVPB SCH ×2 (08:27→20:58)
[2017-12-11] MEDS: Enoxaparin 40 mg Syringe SC SCH (08:28)
--- NOTE | 2017-12-11 10:13 | RAD ---
PROCEDURE: CHEST RADIOGRAPH, 1 VIEW HISTORY: intubated COMPARISON: Comparison is made with 12/09/2017 FINDINGS: LUNGS: The ET tube is seen at appropriate position. No significant interval change in the lungs noted since the previous exam. Prominent lung markings are again noted. PLEURA: Blunting of the right costophrenic angle noted likely due to small pleural effusion. CARDIOVASCULAR: Normal. OSSEOUS STRUCTURES: No significant abnormalities. VISUALIZED UPPER ABDOMEN: Normal. OTHER FINDINGS: Right jugular central line seen in place. There is NG tube seen extends into the abdomen. IMPRESSION: Appropriate position of the support devices. Possible small right pleural effusion.
--- NOTE | 2017-12-11 12:05 | CP.CCUPN ---
CCU Subjective - Physician Review Events Since Last Encounter (Free Text): 12/11/17 12:02 Unresponsive, with no gag reflex, pupil fixed but breathing over the vent, at times, BP has been stable and labs also stable, on vent, on tube feeding. CCU Objective - Vital Signs / Intake & Output Intake and Output (Last 8hrs): Intake & Output 12/10/17 12/11/17 12/11/17 22:59 06:59 14:59 Intake Total 1188 730 320 Output Total 550 Balance 638 730 320 Weight 156 lb Intake: IV 8 Intake, Piggyback 450 200 Tube Feeding 480 580 120 Free Water Flush 250 150 Output: Urine 550 2-way Urethral 550 Other: # Voids 2-way Urethral 600 - Physical Exam Narrative Physical Exam (Free Text): 12/11/17 12:04 Neck: No JVD LUngs: few r basal crackles abdomen: soft, BS +ve Ext: + 1 edma Heart: no gallop Head: Positive for: Atraumatic, Normocephalic. Negative for: Ecchymosis, Abrasion, Laceration Pupils: Positive for: Non-Reactive. Negative for: PERRL Extroacular Muscles: Negative for: EOMI Conjunctiva: Positive for: Normal. Negative for: Injected, Icteric Ears: Positive for: Normal Mouth: Positive for: Dry Pharnyx: Positive for: Normal. Negative for: ERYTHEMA, EXUDATE, TONSILS ENLARGED Neck: Positive for: Trachea Midline, Other (R. IJ line). Negative for: Meningeal Signs, JVD, Lymphadenopathy Respiratory/Chest: Positive for: Decreased Breath Sounds. Negative for: Clear to Auscultation ( distant breath sounds b/l), Rales, Retracting, Rhonchi Cardiovascular: Positive for: Regular Rate and Rhythm, Normal S1, S2, Peripheal Pulses Present (faint), Tachycardic. Negative for: Rub, Gallop Abdomen: Positive for: Normal Bowel Sounds. Negative for: Distention, Peritoneal Signs Upper Extremity: Positive for: Capillary Refill < 2s. Negative for: Normal Inspection (B/L hand edema), Cyanosis Lower Extremity: Positive for: Capillary Refill < 2 s. Negative for: Edema, NORMAL PULSES (faint), Swelling, Erythema, Temperature Abnormalties Neurological: Negative for: GCS=15 (GCS: 4T), CN II-XII Intact (comatose), Speech Normal (unable to evaluate ), Motor Func Grossly Intact, Normal Sensory Function, Normal Cerebellar Funct Skin: Positive for: Dry, Cold (extremities ). Negative for: Normal Color ( chronic skin hypopigmented lesion B/L LE), Laceration Lymphatic: Negative for: Cervical Adenopathy Psychiatric: Positive for: Other (comatose). Negative for: Alert, Oriented x 3 - Medications Active Medications: Active Medications Generic Name Dose Route Start Last Admin Trade Name Freq PRN Reason Stop Dose Admin Acetaminophen 650 mg 11/27/17 00:56 12/09/17 17:00 Tylenol 650mg/20.3ml Solution Ud PO 650 mg Q6 PRN Administration fever > 100.4 Aspirin 81 mg 11/19/17 09:00 12/11/17 08:27 Aspirin Chewable NG 81 mg DAILY ZIA Administration Atorvastatin Calcium 40 mg 11/17/17 22:00 12/10/17 21:33 Lipitor PO 40 mg HS ZIA Administration Clopidogrel Bisulfate 75 mg 11/18/17 09:45 12/11/17 08:29 Plavix NG 75 mg DAILY ZIA Administration Enoxaparin Sodium 40 mg 11/28/17 09:00 12/11/17 08:28 Lovenox SC 40 mg DAILY [facility]IA Administration Protocol Famotidine 40 mg 12/02/17 09:00 12/11/17 08:29 Pepcid PO 40 mg DAILY [facility]IA Administration Folic Acid 1 mg 11/17/17 09:00 12/11/17 08:28 Folic Acid GT 1 mg DAILY ZIA Administration Ciprofloxacin 400 mg in 200 mls @ 200 mls/hr 12/05/17 12:00 12/11/17 08:27 Cipro 400mg/200ml Dsw IVPB 200 mls/hr Q12 [facility]IA Administration Protocol Vancomycin HCl 1 gm/ Sodium 250 mls @ 166.667 mls/hr 12/08/17 12:56 12/11/17 08:46 Chloride IVPB 166.667 mls/hr Q12 ZIA Administration Protocol Thiamine HCl 100 mg 12/12/17 09:00 Vitamin B1 Tab NG DAILY [facility] - Patient Studies Lab Studies: Microbiology Studies 12/05/17 12:08 Blood Culture - Final Blood NO GROWTH AFTER 5 DAYS Gram Stain - Final TEST NOT PERFORMED Lab Studies 12/11/17 12/11/17 12/11/17 Range/Units 05:39 04:31 04:31 WBC 10.9 H (4.8-10.8) K/uL RBC 2.96 L (4.40-5.90) Mil/uL Hgb 8.9 L (12.0-18.0) g/dL Hct 27.2 L (35.0-51.0) % MCV 92.0 (80.0-94.0) fl MCH 30.0 (27.0-31.0) pg MCHC 32.6 L (33.0-37.0) g/dL RDW 16.2 H (11.5-14.5) % Plt Count 205 (130-400) K/uL pCO2 49 H (35-45) mm/Hg pO2 86 (80-100) mm/Hg HCO3 34.7 H (21-28) mmol/L ABG pH 7.49 H (7.35-7.45) ABG Total CO2 38.8 H (22-28) mmol/L ABG O2 Saturation 98.8 H (95-98) % ABG O2 Content 12.8 L (15-23) ML/dL ABG Base Excess 12.5 H (-2.0-3.0) mmol/L ABG Hemoglobin 9.3 L (11.7-17.4) g/dL ABG Carboxyhemoglobin 1.2 (0.5-1.5) % POC ABG HHb (Measured) 1.2 (0.0-5.0) % ABG Methemoglobin 0.7 (0.0-3.0) % ABG O2 Capacity 13.0 L (16-24) mL/dL Roberto Test Yes A-a O2 Difference 138.0 mm/Hg Hgb O2 Saturation 96.9 (95.0-98.0) % Mechanical Rate 18 FiO2 40.0 % Tidal Volume 450 CPAP 5 Sodium 135 (132-148) mmol/l Potassium 3.6 (3.6-5.0) MMOL/L Chloride 93 L (98-107) mmol/L Carbon Dioxide 32 H (22-30) mmol/L Anion Gap 14 (10-20) BUN 19 (9-20) mg/dl Creatinine 0.5 L (0.8-1.5) mg/dl Est GFR ( Amer) > 60 Est GFR (Non-Af Amer) > 60 POC Glucose (mg/dL) (65-110) mg/dL Random Glucose 99 (75-110) mg/dL Calcium 7.8 L (8.4-10.2) mg/dL 12/10/17 Range/Units 21:32 WBC (4.8-10.8) K/uL RBC (4.40-5.90) Mil/uL Hgb (12.0-18.0) g/dL Hct (35.0-51.0) % MCV (80.0-94.0) fl MCH (27.0-31.0) pg MCHC (33.0-37.0) g/dL RDW (11.5-14.5) % Plt Count (130-400) K/uL pCO2 (35-45) mm/Hg pO2 (80-100) mm/Hg HCO3 (21-28) mmol/L ABG pH (7.35-7.45) ABG Total CO2 (22-28) mmol/L ABG O2 Saturation (95-98) % ABG O2 Content (15-23) ML/dL ABG Base Excess (-2.0-3.0) mmol/L ABG Hemoglobin (11.7-17.4) g/dL ABG Carboxyhemoglobin (0.5-1.5) % POC ABG HHb (Measured) (0.0-5.0) % ABG Methemoglobin (0.0-3.0) % ABG O2 Capacity (16-24) mL/dL Roberto Test A-a O2 Difference mm/Hg Hgb O2 Saturation (95.0-98.0) % Mechanical Rate FiO2 % Tidal Volume CPAP Sodium (132-148) mmol/l Potassium (3.6-5.0) MMOL/L Chloride (98-107) mmol/L Carbon Dioxide (22-30) mmol/L Anion Gap (10-20) BUN (9-20) mg/dl Creatinine (0.8-1.5) mg/dl Est GFR ( Amer) Est GFR (Non-Af Amer) POC Glucose (mg/dL) 150 H (65-110) mg/dL Random Glucose (75-110) mg/dL Calcium (8.4-10.2) mg/dL Laboratory Results - last 24 hr 12/10/17 12/11/17 12/11/17 21:32 04:31 04:31 WBC 10.9 H RBC 2.96 L Hgb 8.9 L Hct 27.2 L MCV 92.0 MCH 30.0 MCHC 32.6 L RDW 16.2 H Plt Count 205 pCO2 pO2 HCO3 ABG pH ABG Total CO2 ABG O2 Saturation ABG O2 Content ABG Base Excess ABG Hemoglobin ABG Carboxyhemoglobin POC ABG HHb (Measured) ABG Methemoglobin ABG O2 Capacity Roberto Test A-a O2 Difference Hgb O2 Saturation Mechanical Rate FiO2 Tidal Volume CPAP Sodium 135 Potassium 3.6 Chloride 93 L Carbon Dioxide 32 H Anion Gap 14 BUN 19 Creatinine 0.5 L Est GFR ( Amer) > 60 Est GFR (Non-Af Amer) > 60 POC Glucose (mg/dL) 150 H Random Glucose 99 Calcium 7.8 L 12/11/17 05:39 WBC RBC Hgb Hct MCV MCH MCHC RDW Plt Count pCO2 49 H pO2 86 HCO3 34.7 H ABG pH 7.49 H ABG Total CO2 38.8 H ABG O2 Saturation 98.8 H ABG O2 Content 12.8 L ABG Base Excess 12.5 H ABG Hemoglobin 9.3 L ABG Carboxyhemoglobin 1.2 POC ABG HHb (Measured) 1.2 ABG Methemoglobin 0.7 ABG O2 Capacity 13.0 L Roberto Test Yes A-a O2 Difference 138.0 Hgb O2 Saturation 96.9 Mechanical Rate 18 FiO2 40.0 Tidal Volume 450 CPAP 5 Sodium Potassium Chloride Carbon Dioxide Anion Gap BUN Creatinine Est GFR ( Amer) Est GFR (Non-Af Amer) POC Glucose (mg/dL) Random Glucose Calcium Fingerstick Blood Sugar Results: 142 Assessment/Plan - Assessment and Plan (Free Text) Assessment: 1. Acute ischemic CVA, with brain swelling, Comatose , CVA with pontine , midbrain, cerebellar hemispheres and thalamic infarct Gross edematous changes affect cerebellar hemispheres bilaterally s. No intracranial hemorrhage. Poor Prognosis Ethics Committee met -rec application for emergency guardianship Given patient's poor prognosis medical team following him has decided that it is appropriate a Do not Escalate treatment and DNR order to be in place. 2. Res Failure, Sepsis , Aspiration Pneumonia Intubated since 5/9 ( ET tube changed 12/09) on Vent (PVRC/AC 18/450/5/40%) BP stable off pressors afebrile , WBC trended down trachea aspirate: positive for Citrobacter and 1 blood cx positive for Staph coag negative On Vanco and Cipro Keep HOB elevated , aspiration, precautions,respiratory toilet with frequent suctioning 3. UTI urine cx positive for Strep viridans completed treatment with Vanco IV for 2 weeks 4.DVT prophylaxis Acute Lovenox
[2017-12-12 04:59] LABS: ABG ALLEN TEST YES; ARTERIAL BLOOD GAS HCO3 33.1 mmol/L (21-28); ARTERIAL BLOOD GAS HEMOGLOBIN 8.6 g/dL (11.7-17.4); ARTERIAL BLOOD GAS O2 CAPACITY 11.9 mL/dL (16-24); ARTERIAL BLOOD GAS O2 CONTENT 11.8 ML/dL (15-23); ARTERIAL BLOOD GAS O2 SAT 99.3 % (95-98); ARTERIAL BLOOD GAS PCO2 47 mm/Hg (35-45); ARTERIAL BLOOD GAS PH 7.48 (7.35-7.45); ARTERIAL BLOOD GAS PO2 90 mm/Hg (80-100); ARTERIAL BLOOD GAS TCO2 36.4 mmol/L (22-28)
[2017-12-12 05:30] LABS: HEMOGLOBIN 8.2 g/dL (12.0-18.0); MEAN CELL VOLUME 91.2 fl (80.0-94.0); MEAN CORPUSCULAR HEMOGLOBIN 30.2 pg (27.0-31.0); MEAN CORPUSCULAR HGB CONC 33.1 g/dL (33.0-37.0); RBC 2.73 Mil/uL (4.40-5.90); RED CELL DISTRIBUTION WIDTH 16.1 % (11.5-14.5)
[2017-12-12 05:45] LABS: WHITE BLOOD COUNT 16.6 K/uL (4.8-10.8)
[2017-12-12 05:47] LABS: BLOOD UREA NITROGEN 17 mg/dl (9-20); CALCIUM 7.8 mg/dL (8.4-10.2); GFR AFRICAN-AMERICAN > 60; GFR NON-AFRICAN AMERICAN > 60
--- NOTE | 2017-12-12 07:35 | CP.PCM.PN ---
Subjective - Date & Time of Evaluation Date of Evaluation: 12/12/17 Time of Evaluation: 07:35 - Subjective Subjective: pt intubated, sedated no new chnages in status does not appear to be in any distress hd stable Objective - Vital Signs/Intake and Output Vital Signs (last 24 hours): Temp Pulse Resp BP Pulse Ox 97.9 F 81 10 L 105/70 100 12/12/17 04:00 12/12/17 06:00 12/12/17 06:00 12/12/17 06:00 12/12/17 06:00 Vitals Reviewed GEN: intubated sedated HEENT: NCAT, PERRL, EOMI HEART: RRR, +S1S2, NO MRG LUNG: CTAB, NO WRR ABD: soft, ND, No HSM, No masses EXT: normal pedal pulses, normal capillary refill NEURO: fixed pupils, not responsive to verbal or noxious stim SKIN: warm, dry PSYCH: unable to assess at this time Intake and Output: 12/12/17 12/12/17 06:59 18:59 Intake Total 1628 Output Total 650 Balance 978 - Medications Medications: Current Medications Acetaminophen (Tylenol 650mg/20.3ml Solution Ud) 650 mg PO Q6 PRN PRN Reason: fever > 100.4 Last Admin: 12/09/17 17:00 Dose: 650 mg Aspirin (Aspirin Chewable) 81 mg NG DAILY [facility] Last Admin: 12/11/17 08:27 Dose: 81 mg Atorvastatin Calcium (Lipitor) 40 mg PO HS [facility] Last Admin: 12/11/17 22:47 Dose: 40 mg Clopidogrel Bisulfate (Plavix) 75 mg NG DAILY [facility] Last Admin: 12/11/17 08:29 Dose: 75 mg Enoxaparin Sodium (Lovenox) 40 mg SC DAILY [facility] PRN Reason: Protocol Last Admin: 12/11/17 08:28 Dose: 40 mg Famotidine (Pepcid) 40 mg PO DAILY [facility] Last Admin: 12/11/17 08:29 Dose: 40 mg Folic Acid (Folic Acid) 1 mg GT DAILY [facility] Last Admin: 12/11/17 08:28 Dose: 1 mg Ciprofloxacin (Cipro 400mg/200ml Dsw) 400 mg in 200 mls @ 200 mls/hr IVPB Q12 [facility] PRN Reason: Protocol Last Admin: 12/11/17 20:58 Dose: 200 mls/hr Vancomycin HCl 1 gm/ Sodium (Chloride) 250 mls @ 166.667 mls/hr IVPB Q12 [facility] PRN Reason: Protocol Last Admin: 12/11/17 22:00 Dose: 166.667 mls/hr Thiamine HCl (Vitamin B1 Tab) 100 mg NG DAILY [facility] - Labs Labs: 12/12/17 04:20 12/12/17 04:20 PT 14.1 Seconds (9.8-13.1) H 12/01/17 09:44 INR 1.3 (0.9-1.2) H 12/01/17 09:44 APTT 34.4 Seconds (25.6-37.1) 12/01/17 09:44 Assessment and Plan - Assessment and Plan (Free Text) Plan: White male , admitted as Tez White , now indentified by Police as Jesus Grayson , unknown PMH was brought by EMS after he was observed by bystanders falling in the street. Patient was lethargic on admission however arousable , noted to have a facial droop and his speech was slurred. CT head on admission showed no acute pathology , chronic white matter changes , old bilateral basal nuclei and cerebellar infarct On 11/16 noted to be obtunded ,unable to clear his secretions, tachypneic and saturation in the 80%. He was transferred to ICU and intubated for airway protection. Repeat CT of head showed no change but MRI showed pontine, midbrain, cerebellar hemispheres and thalami infarct. 11/22: With episode of vomiting and possible aspiration became hypotensive, tachycardic, febrile, hypoxemic Patient has been comatose ever since and intubated , maintaining his BP and breathing over the vent Repeat CT head 11/28 showed :Gross edematous changes affect cerebellar hemispheres bilaterally sparing only the inferior margins somewhat and causing compression on the the mid to lower brainstem. The 4th ventricle is partially effaced but no obstructive hydrocephalus appreciated at this time. Edema has extend into the bilateral thalami, right greater than left further indicative of expanding infarction. No intracranial hemorrhage. Ethics Committee meeting recommended Emergency guardianship which is in progress. Given patient's poor prognosis medical team following him has decided that it is appropriate a Do not Escalate treatment and DNR order to be in place. 12/11/17 - no new changes in patient condition, cont to breathe over vent, fixed pupils. 12/12/17 no new changes in condition. 1. Acute CVA/ Coma state Patient is comatose , with fixed pupils, no gag reflex, does not respond to verbal or noxious stimuli, breathing over the vent ( not brain ) MRI brain showed pontine , midbrain, cerebellar hemispheres and thalamic infarct Repeat CT of head 11/28 showed :Gross edematous changes affect cerebellar hemispheres bilaterally sparing only the inferior margins somewhat and causing compression on the the mid to lower brainstem. The 4th ventricle is partially effaced but no obstructive hydrocephalus appreciated at this time. Edema has extend into the bilateral thalami, right greater than left further indicative of expanding infarction. No intracranial hemorrhage. Poor Prognosis Neurology on consult Continue ASA, Statin, Plavix [employer] network has been notified Ethics Committee met -rec application for emergency guardianship Given patient's poor prognosis medical team following him has decided that it is appropriate a Do not Escalate treatment and DNR order to be in place. 2. Sepsis due to Aspiration Pneumonia Still orally Intubated since 11/16 ( ET tube changed 12/09) on Vent (PVRC/AC 18/450 /5/40%) BP has improved, off levophed drip , afebrile , WBC trended down procalcitonin was elevated 79 trachea aspirate: positive for Citrobacter and 1 blood cx positive for Staph coag negative On Vanco and Cipro at present ID consulted : Dr. Anderson Keep HOB elevated , aspiration, precautions,respiratory toilet with frequent suctioning 3. UTI urine cx positive for Strep viridans completed treatment with Vanco IV for 2 weeks 4. ? Alcoholism unclear if alcoholic, cannot obtain hx however ED note stated that patient has history of ETOH ETOH level low urine Tox : neg Thiamine and FA 5.DVT prophylaxis Acute Lovenox
[2017-12-12] MEDS: Ciprofloxacin 400mg/200ml D5W 400 MG/200 ML BAG IVPB SCH ×2 (08:28→21:17)
[2017-12-12] MEDS: Enoxaparin 40 mg Syringe SC SCH (08:30)
--- NOTE | 2017-12-12 08:47 | RAD ---
HISTORY: intubated COMPARISON: Portable chest 12/11/2017. FINDINGS: Endotracheal and nasogastric tubes are stable as well as right central venous line. LUNGS: No definitive infiltrate bilaterally although bronchovascular markings somewhat coarsened at the inferior lung zones, right greater than left. PLEURA: No significant pleural effusion identified, no pneumothorax apparent. CARDIOVASCULAR: Normal. OSSEOUS STRUCTURES: No significant abnormalities. VISUALIZED UPPER ABDOMEN: Normal. OTHER FINDINGS: None. IMPRESSION: Stable chest radiography including tubes and catheters and mildly coarsened bronchovascular markings at the bilateral bases. No definite alveolitis or pleural effusion bilaterally.
--- NOTE | 2017-12-12 09:26 | EEG ---
DATE: GENERAL INFORMATION: EEG is required using a 10-20 International electrode system. All electrodes are reference to A1/A2-P1/P2 respectively. Background rhythm consists of a slow 4-5 Hz background rhythm that is not very reactive or symmetric and does not attenuate to eye opening. There is no normal sleep captured. There are no other normal awake rhythms captured. There are no epileptiform discharges. IMPRESSION: This is an abnormal awake and drowsy electroencephalogram. The presence of diffuse generalized slowing indicates severe encephalopathy. Travon Price MD
--- NOTE | 2017-12-12 15:03 | CP.CCUPN ---
CCU Subjective - Physician Review Subjective (Free Text): 12/12/17 16:20 The patient was Seen and examined by me at the bedside during ICU round, Medical records reviewed and Management issues were discussed and formulated with the house staff. Events reviewed Pt remains orally intubated and mechanically ventilated. PRVC AC12 TV450 FiO2 40 % PEEP5. Remains Afebrile, Currently on antibiotics with IV Vanco and Cipro BP stable. NSR on the monitor Comatosed, no improvement of mental status, unresponsive to painful stimuli. Pupils remain fixed and dilated, No corneal reflex or Gag reflex identified. intact. Patient breathing over the vent. Tolerating tube feeding. Pt off antibiotics, completed a course of Vanco and Zosyn 12/02; Sputum C/S positive Citrobacter Diversus 12/05; Urine C/S no growth (11/16: Urine C/S positive for gram positive Cocci ( Strep viridans ) 12/05; Blood C/S with no growth 12/05; Blood C/S Pos Coagulase negative Staph Last 24H I&O 3216/1375 This morning labs revealed worsening Leucocytosis 16.6, Stable renal function. CCU Objective - Vital Signs / Intake & Output Vital Signs (Last 4 hours): Vital Signs Temp Pulse Resp BP Pulse Ox 12/12/17 12:00 98.4 F 94 H 15 114/69 100 Intake and Output (Last 8hrs): Intake & Output 12/12/17 12/12/17 12/12/17 06:59 14:59 22:59 Intake Total 1044 698 Output Total 650 0 Balance 394 698 Weight 156 lb Intake: IV 14 8 Intake, Piggyback 250 450 Tube Feeding 480 240 Free Water Flush 300 Output: Gastric Amount 0 Stomach 0 Urine 650 2-way Urethral 650 Other: # Bowel Movements 0 - Physical Exam Head: Positive for: Atraumatic, Normocephalic. Negative for: Ecchymosis, Abrasion, Laceration Pupils: Positive for: Non-Reactive. Negative for: PERRL Extroacular Muscles: Negative for: EOMI Conjunctiva: Positive for: Normal. Negative for: Injected, Icteric Ears: Positive for: Normal Mouth: Positive for: Dry Pharnyx: Positive for: Normal. Negative for: ERYTHEMA, EXUDATE, TONSILS ENLARGED Neck: Positive for: Trachea Midline, Other (R. IJ line). Negative for: Meningeal Signs, JVD, Lymphadenopathy Respiratory/Chest: Positive for: Decreased Breath Sounds. Negative for: Clear to Auscultation ( distant breath sounds b/l), Rales, Retracting, Rhonchi Cardiovascular: Positive for: Regular Rate and Rhythm, Normal S1, S2, Peripheal Pulses Present (faint), Tachycardic. Negative for: Rub, Gallop Abdomen: Positive for: Normal Bowel Sounds. Negative for: Distention, Peritoneal Signs Upper Extremity: Positive for: Capillary Refill < 2s. Negative for: Normal Inspection (B/L hand edema), Cyanosis Lower Extremity: Positive for: Capillary Refill < 2 s. Negative for: Edema, NORMAL PULSES (faint), Swelling, Erythema, Temperature Abnormalties Neurological: Negative for: GCS=15 (GCS: 4T), CN II-XII Intact (comatose), Speech Normal (unable to evaluate ), Motor Func Grossly Intact, Normal Sensory Function, Normal Cerebellar Funct Skin: Positive for: Dry, Cold (extremities ). Negative for: Normal Color ( chronic skin hypopigmented lesion B/L LE), Laceration Lymphatic: Negative for: Cervical Adenopathy Psychiatric: Positive for: Other (comatose). Negative for: Alert, Oriented x 3 - Medications Active Medications: Active Medications Generic Name Dose Route Start Last Admin Trade Name Freq PRN Reason Stop Dose Admin Acetaminophen 650 mg 11/27/17 00:56 12/09/17 17:00 Tylenol 650mg/20.3ml Solution Ud PO 650 mg Q6 PRN Administration fever > 100.4 Aspirin 81 mg 11/19/17 09:00 12/12/17 08:30 Aspirin Chewable NG 81 mg DAILY [facility] Administration Atorvastatin Calcium 40 mg 11/17/17 22:00 12/11/17 22:47 Lipitor PO 40 mg HS [facility] Administration Clopidogrel Bisulfate 75 mg 11/18/17 09:45 12/12/17 08:31 Plavix NG 75 mg DAILY [facility] Administration Enoxaparin Sodium 40 mg 11/28/17 09:00 12/12/17 08:30 Lovenox SC 40 mg DAILY [facility] Administration Protocol Famotidine 40 mg 12/02/17 09:00 12/12/17 08:38 Pepcid PO 40 mg DAILY [facility] Administration Folic Acid 1 mg 11/17/17 09:00 12/12/17 08:30 Folic Acid GT 1 mg DAILY [facility] Administration Ciprofloxacin 400 mg in 200 mls @ 200 mls/hr 12/05/17 12:00 12/12/17 08:28 Cipro 400mg/200ml Dsw IVPB 200 mls/hr Q12 [facility] Administration Protocol Thiamine HCl 100 mg 12/12/17 09:00 12/12/17 08:40 Vitamin B1 Tab NG 100 mg DAILY [facility] Administration - Patient Studies Lab Studies: Lab Studies 12/12/17 12/12/17 12/12/17 Range/Units 04:52 04:20 04:20 WBC 16.6 H D (4.8-10.8) K/uL RBC 2.73 L (4.40-5.90) Mil/uL Hgb 8.2 L (12.0-18.0) g/dL Hct 24.9 L (35.0-51.0) % MCV 91.2 (80.0-94.0) fl MCH 30.2 (27.0-31.0) pg MCHC 33.1 (33.0-37.0) g/dL RDW 16.1 H (11.5-14.5) % Plt Count 212 (130-400) K/uL pCO2 47 H (35-45) mm/Hg pO2 90 (80-100) mm/Hg HCO3 33.1 H (21-28) mmol/L ABG pH 7.48 H (7.35-7.45) ABG Total CO2 36.4 H (22-28) mmol/L ABG O2 Saturation 99.3 H (95-98) % ABG O2 Content 11.8 L (15-23) ML/dL ABG Base Excess 10.4 H (-2.0-3.0) mmol/L ABG Hemoglobin 8.6 L (11.7-17.4) g/dL ABG Carboxyhemoglobin 1.6 H (0.5-1.5) % POC ABG HHb (Measured) 0.7 (0.0-5.0) % ABG Methemoglobin 1.1 (0.0-3.0) % ABG O2 Capacity 11.9 L (16-24) mL/dL Roberto Test Yes A-a O2 Difference 136.0 mm/Hg Hgb O2 Saturation 96.6 (95.0-98.0) % Vent Mode A/c pc Mechanical Rate 18 FiO2 40.0 % Tidal Volume 450 PEEP 5 Sodium 133 (132-148) mmol/l Potassium 3.5 L (3.6-5.0) MMOL/L Chloride 94 L (98-107) mmol/L Carbon Dioxide 33 H (22-30) mmol/L Anion Gap 10 (10-20) BUN 17 (9-20) mg/dl Creatinine 0.4 L (0.8-1.5) mg/dl Est GFR ( Amer) > 60 Est GFR (Non-Af Amer) > 60 Random Glucose 121 H (75-110) mg/dL Calcium 7.8 L (8.4-10.2) mg/dL Laboratory Results - last 24 hr 12/12/17 12/12/17 12/12/17 04:20 04:20 04:52 WBC 16.6 H D RBC 2.73 L Hgb 8.2 L Hct 24.9 L MCV 91.2 MCH 30.2 MCHC 33.1 RDW 16.1 H Plt Count 212 pCO2 47 H pO2 90 HCO3 33.1 H ABG pH 7.48 H ABG Total CO2 36.4 H ABG O2 Saturation 99.3 H ABG O2 Content 11.8 L ABG Base Excess 10.4 H ABG Hemoglobin 8.6 L ABG Carboxyhemoglobin 1.6 H POC ABG HHb (Measured) 0.7 ABG Methemoglobin 1.1 ABG O2 Capacity 11.9 L Roberto Test Yes A-a O2 Difference 136.0 Hgb O2 Saturation 96.6 Vent Mode A/c pc Mechanical Rate 18 FiO2 40.0 Tidal Volume 450 PEEP 5 Sodium 133 Potassium 3.5 L Chloride 94 L Carbon Dioxide 33 H Anion Gap 10 BUN 17 Creatinine 0.4 L Est GFR ( Amer) > 60 Est GFR (Non-Af Amer) > 60 Random Glucose 121 H Calcium 7.8 L Fingerstick Blood Sugar Results: 142 Assessment/Plan (1) Acute respiratory insufficiency Current Visit: Yes Status: Acute Comment: Patient intubated for airway protection, due to Altered Level of consciousness Not a candidate for Vent weaning dur to poor mental status Aggressive pulmonary toilet Maintain aspiration precautions (2) Ischemic stroke Current Visit: Yes Status: Acute Comment: 11/21/2017: CT HEAD WITHOUT CONTRAST. IMPRESSION: Evolution of brain infarction is identified partially obscured at the brainstem and more obvious at the bilateral cerebral peduncle as well as small foci at both cerebellar hemispheres as discussed above. No intracranial hemorrhage or significant mass appreciable this at this time. Reiteration of age related neuro degenerative changes. (3) Severe sepsis Current Visit: Yes Status: Acute Priority: High Comment: Continue current antibiotics with IV Vanco and Cipro Pt completed a course of Vanco and Zosyn for 2 weeks 12/02; Sputum C/S positive Citrobacter Diversus 12/05; Urine C/S no growth (11/16: Urine C/S positive for gram positive Cocci ) 12/05; Blood C/S with no growth Last 24H I&O 2864/2300 This morning labs revealed No Leucocytosis, Stable renal function. (4) Acute metabolic encephalopathy Current Visit: Yes Status: Acute Priority: High Comment: Pt Comatosed, no improvement of mental status
[2017-12-13 05:36] LABS: ABG ALLEN TEST YES; ARTERIAL BLOOD GAS HCO3 31.9 mmol/L (21-28); ARTERIAL BLOOD GAS O2 CAPACITY 12.4 mL/dL (16-24); ARTERIAL BLOOD GAS O2 CONTENT 12.1 ML/dL (15-23); ARTERIAL BLOOD GAS O2 SAT 97.6 % (95-98); ARTERIAL BLOOD GAS PCO2 41 mm/Hg (35-45); ARTERIAL BLOOD GAS PH 7.51 (7.35-7.45); ARTERIAL BLOOD GAS PO2 74 mm/Hg (80-100)
[2017-12-13 06:34] LABS: HEMOGLOBIN 8.9 g/dL (12.0-18.0); MEAN CELL VOLUME 91.5 fl (80.0-94.0); MEAN CORPUSCULAR HEMOGLOBIN 30.3 pg (27.0-31.0); MEAN CORPUSCULAR HGB CONC 33.1 g/dL (33.0-37.0); RBC 2.93 Mil/uL (4.40-5.90); RED CELL DISTRIBUTION WIDTH 16.2 % (11.5-14.5); WHITE BLOOD COUNT 11.8 K/uL (4.8-10.8)
[2017-12-13 06:42] LABS: BLOOD UREA NITROGEN 15 mg/dl (9-20); CALCIUM 8.1 mg/dL (8.4-10.2); GFR AFRICAN-AMERICAN > 60; GFR NON-AFRICAN AMERICAN > 60
[2017-12-13] MEDS: Enoxaparin 40 mg Syringe SC SCH (08:09)
[2017-12-13] MEDS: Ciprofloxacin 400mg/200ml D5W 400 MG/200 ML BAG IVPB SCH ×2 (08:10→21:19)
--- NOTE | 2017-12-13 09:08 | RAD ---
HISTORY: ETT placement COMPARISON: Chest radiograph dated 12/12/2017. FINDINGS: LUNGS: Pulmonary vascular congestion. No focal consolidation. PLEURA: No significant pleural effusion identified, no pneumothorax apparent. CARDIOVASCULAR: Atherosclerotic aortic calcifications. Cardiomediastinal silhouette within normal limits. OSSEOUS STRUCTURES: Unchanged. VISUALIZED UPPER ABDOMEN: Normal. OTHER FINDINGS: Endotracheal and enteric tubes, unchanged. Right internal jugular access central venous catheter, unchanged. IMPRESSION: Stable tubes and lines. Pulmonary vascular congestion. No focal consolidation or pleural effusion.
--- NOTE | 2017-12-13 09:26 | CP.CCUPN ---
<Matthieu Duncan - Last Filed: 12/13/17 11:14> CCU Subjective - Physician Review Subjective (Free Text): 12/13/17 09:24 62 y/o M seen and examined at bedside this morning. Unresponsive. Continues Intubated. Vent settings A/C rate of 18, FIO2 40, Vt 450, PEEP 5. Pupils fixed. No corneal reflex. No gag. No cough reflex. No other acute events. Last Temp 100.1 CCU Objective - Vital Signs / Intake & Output Vital Signs (Last 4 hours): Vital Signs Temp Pulse Resp BP Pulse Ox 12/13/17 08:00 100.1 F H 100 H 18 118/69 100 12/13/17 06:00 98 H 18 118/74 100 Intake and Output (Last 8hrs): Intake & Output 12/12/17 12/13/17 12/13/17 22:59 06:59 14:59 Intake Total 488 480 60 Output Total 800 1700 Balance -312 -1220 60 Weight 150 lb Intake: IV 8 Tube Feeding 480 480 60 Output: Gastric Amount 0 Stomach 0 Urine 800 1700 2-way Urethral 800 1700 Other: # Bowel Movements 0 - Physical Exam Head: Positive for: Atraumatic, Normocephalic. Negative for: Ecchymosis, Abrasion, Laceration Pupils: Positive for: Non-Reactive. Negative for: PERRL Extroacular Muscles: Negative for: EOMI Conjunctiva: Positive for: Normal. Negative for: Injected, Icteric Mouth: Positive for: Dry Pharnyx: Negative for: ERYTHEMA, EXUDATE, TONSILS ENLARGED Neck: Positive for: Trachea Midline, Other (R. IJ line). Negative for: JVD, Lymphadenopathy Respiratory/Chest: Positive for: Decreased Breath Sounds. Negative for: Clear to Auscultation ( distant breath sounds b/l), Rales, Retracting, Rhonchi Cardiovascular: Positive for: Regular Rate and Rhythm, Normal S1, S2, Peripheal Pulses Present (faint), Tachycardic. Negative for: Rub, Gallop Abdomen: Positive for: Normal Bowel Sounds. Negative for: Distention, Peritoneal Signs Upper Extremity: Positive for: Capillary Refill < 2s. Negative for: Normal Inspection (Mild B/L hand edema), Cyanosis Lower Extremity: Positive for: Capillary Refill < 2 s. Negative for: Edema, NORMAL PULSES (faint), Swelling, Erythema, Temperature Abnormalties Neurological: Negative for: GCS=15 (GCS: 4T), CN II-XII Intact (comatose), Speech Normal (unable to evaluate ), Motor Func Grossly Intact, Normal Sensory Function, Normal Cerebellar Funct Skin: Positive for: Dry, Cold (extremities ). Negative for: Normal Color ( chronic skin hypopigmented lesion B/L LE), Laceration Lymphatic: Negative for: Cervical Adenopathy Psychiatric: Positive for: Other (comatose). Negative for: Alert, Oriented x 3 - Medications Active Medications: Active Medications Generic Name Dose Route Start Last Admin Trade Name Freq PRN Reason Stop Dose Admin Acetaminophen 650 mg 11/27/17 00:56 12/09/17 17:00 Tylenol 650mg/20.3ml Solution Ud PO 650 mg Q6 PRN Administration fever > 100.4 Aspirin 81 mg 11/19/17 09:00 12/13/17 08:09 Aspirin Chewable NG 81 mg DAILY ZIA Administration Atorvastatin Calcium 40 mg 11/17/17 22:00 12/12/17 21:17 Lipitor PO 40 mg HS ZIA Administration Clopidogrel Bisulfate 75 mg 11/18/17 09:45 12/13/17 08:09 Plavix NG 75 mg DAILY ZIA Administration Enoxaparin Sodium 40 mg 11/28/17 09:00 12/13/17 08:09 Lovenox SC 40 mg DAILY ZIA Administration Protocol Famotidine 40 mg 12/02/17 09:00 12/12/17 08:38 Pepcid PO 40 mg DAILY ZIA Administration Folic Acid 1 mg 11/17/17 09:00 12/13/17 08:09 Folic Acid GT 1 mg DAILY ZIA Administration Ciprofloxacin 400 mg in 200 mls @ 200 mls/hr 12/05/17 12:00 12/13/17 08:10 Cipro 400mg/200ml Dsw IVPB 200 mls/hr Q12 ZIA Administration Protocol Thiamine HCl 100 mg 12/12/17 09:00 12/13/17 08:09 Vitamin B1 Tab NG 100 mg DAILY ZIA Administration - Patient Studies Lab Studies: Lab Studies 12/13/17 12/13/17 12/13/17 Range/Units 06:15 06:15 05:35 WBC 11.8 H (4.8-10.8) K/uL RBC 2.93 L (4.40-5.90) Mil/uL Hgb 8.9 L (12.0-18.0) g/dL Hct 26.8 L (35.0-51.0) % MCV 91.5 (80.0-94.0) fl MCH 30.3 (27.0-31.0) pg MCHC 33.1 (33.0-37.0) g/dL RDW 16.2 H (11.5-14.5) % Plt Count 254 (130-400) K/uL pCO2 41 (35-45) mm/Hg pO2 74 L (80-100) mm/Hg HCO3 31.9 H (21-28) mmol/L ABG pH 7.51 H (7.35-7.45) ABG Total CO2 34.0 H (22-28) mmol/L ABG O2 Saturation 97.6 (95-98) % ABG O2 Content 12.1 L (15-23) ML/dL ABG Base Excess 8.9 H (-2.0-3.0) mmol/L ABG Hemoglobin 9.0 L (11.7-17.4) g/dL ABG Carboxyhemoglobin 1.6 H (0.5-1.5) % POC ABG HHb (Measured) 2.3 (0.0-5.0) % ABG Methemoglobin 1.2 (0.0-3.0) % ABG O2 Capacity 12.4 L (16-24) mL/dL Roberto Test Yes A-a O2 Difference 160.0 mm/Hg Hgb O2 Saturation 94.9 L (95.0-98.0) % Vent Mode A/c Mechanical Rate 1 FiO2 40.0 % Tidal Volume 450 PEEP 5 Sodium 137 (132-148) mmol/l Potassium 4.0 (3.6-5.0) MMOL/L Chloride 96 L (98-107) mmol/L Carbon Dioxide 33 H (22-30) mmol/L Anion Gap 12 (10-20) BUN 15 (9-20) mg/dl Creatinine 0.5 L (0.8-1.5) mg/dl Est GFR ( Amer) > 60 Est GFR (Non-Af Amer) > 60 Random Glucose 94 (75-110) mg/dL Calcium 8.1 L (8.4-10.2) mg/dL Laboratory Results - last 24 hr 12/13/17 12/13/17 12/13/17 05:35 06:15 06:15 WBC 11.8 H RBC 2.93 L Hgb 8.9 L Hct 26.8 L MCV 91.5 MCH 30.3 MCHC 33.1 RDW 16.2 H Plt Count 254 pCO2 41 pO2 74 L HCO3 31.9 H ABG pH 7.51 H ABG Total CO2 34.0 H ABG O2 Saturation 97.6 ABG O2 Content 12.1 L ABG Base Excess 8.9 H ABG Hemoglobin 9.0 L ABG Carboxyhemoglobin 1.6 H POC ABG HHb (Measured) 2.3 ABG Methemoglobin 1.2 ABG O2 Capacity 12.4 L Roberto Test Yes A-a O2 Difference 160.0 Hgb O2 Saturation 94.9 L Vent Mode A/c Mechanical Rate 1 FiO2 40.0 Tidal Volume 450 PEEP 5 Sodium 137 Potassium 4.0 Chloride 96 L Carbon Dioxide 33 H Anion Gap 12 BUN 15 Creatinine 0.5 L Est GFR ( Amer) > 60 Est GFR (Non-Af Amer) > 60 Random Glucose 94 Calcium 8.1 L Fingerstick Blood Sugar Results: 142 Critical Care Progress Note - Ventilator Checklist Head of Bed 30 Degrees: Yes Daily Assessment of Readiness to Wean: No Daily Spontaneous Breathing Trial: No PUD Prophalyxis: Yes DVT Prophylaxis: Yes - Vent Settings MODE:: ASSIST CONTROL TIDAL VOLUME:: 450 RESP RATE:: 18 FIO2:: 40 PEEP:: 5 - Extremities/Vascular Does the Patient have a Central Venous Catheter?: Yes Insertion Site: Internal Jugular Vein Does the Patient need a Central Venous Catheter?: Yes Does the Patient have a Holloway Catheter?: Yes Does the Patient need a Holloway Catheter?: Yes Catheter Insertion Criteria: Patient requires prolonged immobilization - Prophylaxis GI Prophylaxis GI: Pepsid - Prophylaxis DVT Prophylaxis DVT: Lovenox Assessment/Plan - Assessment and Plan (Free Text) Assessment: 63 y/o male, with unobtainable medical history, admitted to hospital for AMS of uncertain etiology, transferred to ICU due to worsening mental status, tachypnea , and desaturation, 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 Comatose Acute CVA/Coma -Brain MRI: acute pontine infaract with extension to midbrain. Smaller cerebellar infarcts b/l -Intubated -GCS 4T -c/w respiratory support and tube feedings -aspirin/plavix as per neuro -atorvastatin 40mg -poor prognosis/Ethic committee review. guardianship pending Acid-base imbalance Currently Alkalotic PH 7.51, HCO3 31.9 PCO2 41 today C/W current vent settings Meds reviewed. No signs of sepsis or significant electrolyte imbalance Coagulase Negative Staph Bacteremia -Vanco IV stopped by hosp Yesterday. Will d/c hospitalist team -ID on board, awaiting further recommendations -WBC: 11.8(down from 16s Yesterday) -Temp 100.1 this AM Respiratory Failure secondary CVA -2/2 to Acute CVA -intubated -continues to trigger vent -Rate 18, Vt 450, FIO2 40.0, PEEP 5 -Monitor ABGs Aspiration Pneumonia -Copious secretions -C/W Cipro IV -CXR today: No significant changes from previous studies Anemia of Unknown Etiology -H/H 8.9/26.8 -No clinical evidence of acute bleeding -monitor H/H and VS Prophylaxis -Head of bed elevation @ 30 degrees -Pepcid 40 mg daily -Lovenox 40mg SC QD -SCDs Code Status: -DNR -Overall extremely poor prognosis <Raul Finn V - Last Filed: 12/13/17 13:48> CCU Objective - Vital Signs / Intake & Output Vital Signs (Last 4 hours): Vital Signs Temp Pulse Resp BP Pulse Ox 12/13/17 12:00 100.4 F H 12/13/17 10:00 100 H 16 122/79 100 Intake and Output (Last 8hrs): Intake & Output 12/12/17 12/13/17 12/13/17 22:59 06:59 14:59 Intake Total 488 480 430 Output Total 800 1700 Balance -312 -1220 430 Weight 150 lb Intake: IV 8 Intake, Piggyback 200 Tube Feeding 480 480 180 Free Water Flush 50 Output: Gastric Amount 0 Stomach 0 Urine 800 1700 2-way Urethral 800 1700 Other: # Bowel Movements 0 - Medications Active Medications: Active Medications Generic Name Dose Route Start Last Admin Trade Name Freq PRN Reason Stop Dose Admin Acetaminophen 650 mg 11/27/17 00:56 12/09/17 17:00 Tylenol 650mg/20.3ml Solution Ud PO 650 mg Q6 PRN Administration fever > 100.4 Aspirin 81 mg 11/19/17 09:00 12/13/17 08:09 Aspirin Chewable NG 81 mg DAILY ZIA Administration Atorvastatin Calcium 40 mg 11/17/17 22:00 12/12/17 21:17 Lipitor PO 40 mg HS ZIA Administration Clopidogrel Bisulfate 75 mg 11/18/17 09:45 12/13/17 08:09 Plavix NG 75 mg DAILY ZIA Administration Enoxaparin Sodium 40 mg 11/28/17 09:00 12/13/17 08:09 Lovenox SC 40 mg DAILY ZIA Administration Protocol Famotidine 40 mg 12/02/17 09:00 12/12/17 08:38 Pepcid PO 40 mg DAILY ZIA Administration Folic Acid 1 mg 11/17/17 09:00 12/13/17 08:09 Folic Acid GT 1 mg DAILY ZIA Administration Ciprofloxacin 400 mg in 200 mls @ 200 mls/hr 12/05/17 12:00 12/13/17 08:10 Cipro 400mg/200ml Dsw IVPB 200 mls/hr Q12 ZIA Administration Protocol Thiamine HCl 100 mg 12/12/17 09:00 12/13/17 08:09 Vitamin B1 Tab NG 100 mg DAILY ZIA Administration - Patient Studies Lab Studies: Lab Studies 12/13/17 12/13/17 12/13/17 Range/Units 06:15 06:15 05:35 WBC 11.8 H (4.8-10.8) K/uL RBC 2.93 L (4.40-5.90) Mil/uL Hgb 8.9 L (12.0-18.0) g/dL Hct 26.8 L (35.0-51.0) % MCV 91.5 (80.0-94.0) fl MCH 30.3 (27.0-31.0) pg MCHC 33.1 (33.0-37.0) g/dL RDW 16.2 H (11.5-14.5) % Plt Count 254 (130-400) K/uL pCO2 41 (35-45) mm/Hg pO2 74 L (80-100) mm/Hg HCO3 31.9 H (21-28) mmol/L ABG pH 7.51 H (7.35-7.45) ABG Total CO2 34.0 H (22-28) mmol/L ABG O2 Saturation 97.6 (95-98) % ABG O2 Content 12.1 L (15-23) ML/dL ABG Base Excess 8.9 H (-2.0-3.0) mmol/L ABG Hemoglobin 9.0 L (11.7-17.4) g/dL ABG Carboxyhemoglobin 1.6 H (0.5-1.5) % POC ABG HHb (Measured) 2.3 (0.0-5.0) % ABG Methemoglobin 1.2 (0.0-3.0) % ABG O2 Capacity 12.4 L (16-24) mL/dL Roberto Test Yes A-a O2 Difference 160.0 mm/Hg Hgb O2 Saturation 94.9 L (95.0-98.0) % Vent Mode A/c Mechanical Rate 1 FiO2 40.0 % Tidal Volume 450 PEEP 5 Sodium 137 (132-148) mmol/l Potassium 4.0 (3.6-5.0) MMOL/L Chloride 96 L (98-107) mmol/L Carbon Dioxide 33 H (22-30) mmol/L Anion Gap 12 (10-20) BUN 15 (9-20) mg/dl Creatinine 0.5 L (0.8-1.5) mg/dl Est GFR ( Amer) > 60 Est GFR (Non-Af Amer) > 60 Random Glucose 94 (75-110) mg/dL Calcium 8.1 L (8.4-10.2) mg/dL Laboratory Results - last 24 hr 12/13/17 12/13/17 12/13/17 05:35 06:15 06:15 WBC 11.8 H RBC 2.93 L Hgb 8.9 L Hct 26.8 L MCV 91.5 MCH 30.3 MCHC 33.1 RDW 16.2 H Plt Count 254 pCO2 41 pO2 74 L HCO3 31.9 H ABG pH 7.51 H ABG Total CO2 34.0 H ABG O2 Saturation 97.6 ABG O2 Content 12.1 L ABG Base Excess 8.9 H ABG Hemoglobin 9.0 L ABG Carboxyhemoglobin 1.6 H POC ABG HHb (Measured) 2.3 ABG Methemoglobin 1.2 ABG O2 Capacity 12.4 L Roberto Test Yes A-a O2 Difference 160.0 Hgb O2 Saturation 94.9 L Vent Mode A/c Mechanical Rate 1 FiO2 40.0 Tidal Volume 450 PEEP 5 Sodium 137 Potassium 4.0 Chloride 96 L Carbon Dioxide 33 H Anion Gap 12 BUN 15 Creatinine 0.5 L Est GFR ( Amer) > 60 Est GFR (Non-Af Amer) > 60 Random Glucose 94 Calcium 8.1 L Assessment/Plan - Assessment and Plan (Free Text) Plan: patient is seen, examined at bedside. Agree with plan of care as detailed in resident's note
--- NOTE | 2017-12-13 13:53 | CP.PCM.PN ---
Subjective - Date & Time of Evaluation Date of Evaluation: 12/13/17 Time of Evaluation: 12:15 - Subjective Subjective: Pt has low grade fever Leukocytosis trended down from 16 to 11K Remains intubated on Mech vent 18/450/5/40% Responds to pain by sl movement of UE Pupils nonreactive Tolerating Tube feeding Objective - Vital Signs/Intake and Output Vital Signs (last 24 hours): Temp Pulse Resp BP Pulse Ox 100.4 F H 100 H 16 122/79 100 12/13/17 12:00 12/13/17 10:00 12/13/17 10:00 12/13/17 10:00 12/13/17 10:00 Intake and Output: 12/13/17 12/13/17 06:59 18:59 Intake Total 720 430 Output Total 1700 Balance -980 430 - Medications Medications: Current Medications Acetaminophen (Tylenol 650mg/20.3ml Solution Ud) 650 mg PO Q6 PRN PRN Reason: fever > 100.4 Last Admin: 12/09/17 17:00 Dose: 650 mg Aspirin (Aspirin Chewable) 81 mg NG DAILY [facility] Last Admin: 12/13/17 08:09 Dose: 81 mg Atorvastatin Calcium (Lipitor) 40 mg PO HS [facility] Last Admin: 12/12/17 21:17 Dose: 40 mg Clopidogrel Bisulfate (Plavix) 75 mg NG DAILY [facility] Last Admin: 12/13/17 08:09 Dose: 75 mg Enoxaparin Sodium (Lovenox) 40 mg SC DAILY [facility]IA PRN Reason: Protocol Last Admin: 12/13/17 08:09 Dose: 40 mg Famotidine (Pepcid) 40 mg PO DAILY [facility] Last Admin: 12/12/17 08:38 Dose: 40 mg Folic Acid (Folic Acid) 1 mg GT DAILY [facility] Last Admin: 12/13/17 08:09 Dose: 1 mg Ciprofloxacin (Cipro 400mg/200ml Dsw) 400 mg in 200 mls @ 200 mls/hr IVPB Q12 [facility]IA PRN Reason: Protocol Last Admin: 12/13/17 08:10 Dose: 200 mls/hr Thiamine HCl (Vitamin B1 Tab) 100 mg NG DAILY [facility] Last Admin: 12/13/17 08:09 Dose: 100 mg - Labs Labs: 12/13/17 06:15 12/13/17 06:15 PT 14.1 Seconds (9.8-13.1) H 12/01/17 09:44 INR 1.3 (0.9-1.2) H 12/01/17 09:44 APTT 34.4 Seconds (25.6-37.1) 12/01/17 09:44 - Constitutional Appears: chronically ill, Intubated on Vent (PVRC/AC 40% FiO2) - Head Exam Head Exam: NORMAL INSPECTION, NORMOCEPHALIC - Eye Exam Eye Exam: Pupil Exam: Fixed, 4mm, not reactive to light - ENT Exam ENT Exam: Mucous Membranes Dry, Normal External Ear Exam - Neck Exam Neck Exam: absent: Meningismus - Respiratory Exam Respiratory Exam: Rhonchi, coarse rales Additional comments: Intubated on Vent - Cardiovascular Exam Cardiovascular Exam: REGULAR RHYTHM, +S1, +S2 - GI/Abdominal Exam GI & Abdominal Exam: Soft, Normal Bowel Sounds OGT in place - Extremities Exam Extremities Exam: Pedal Edema, edematous upper ext Skin : mottled - Neurological Exam Additional comments: responds to deep pain by sl movement fixed pupils no gag reflex breathes over the Vent Assessment and Plan (1) Acute CVA (cerebrovascular accident) Status: Acute (2) Altered mental status Status: Acute (3) Slurring of speech Status: Acute (4) HTN (hypertension) Status: Chronic (5) Acute metabolic encephalopathy Status: Acute (6) Acute respiratory insufficiency Status: Acute (7) DVT prophylaxis Status: Acute - Assessment and Plan (Free Text) Assessment: White male , admitted as Tez White , now identified by Police as Jesus Grayson , unknown PMH was brought by EMS after he was observed by bystanders falling in the street. Patient was lethargic on admission however arousable , noted to have a facial droop and his speech was slurred. CT head on admission showed no acute pathology , chronic white matter changes , old bilateral basal nuclei and cerebellar infarct On 11/16 noted to be obtunded ,unable to clear his secretions, tachypneic and saturation in the 80%. He was transferred to ICU and intubated for airway protection. Repeat CT of head showed no change but MRI showed pontine, midbrain, cerebellar hemispheres and thalami infarct. 11/22: With episode of vomiting and possible aspiration became hypotensive, tachycardic, febrile, hypoxemic Patient has been comatose ever since and intubated , maintaining his BP and breathing over the vent Repeat CT head 11/28 showed :Gross edematous changes affect cerebellar hemispheres bilaterally sparing only the inferior margins somewhat and causing compression on the the mid to lower brainstem. The 4th ventricle is partially effaced but no obstructive hydrocephalus appreciated at this time. Edema has extend into the bilateral thalami, right greater than left further indicative of expanding infarction. No intracranial hemorrhage. Ethics Committee meeting recommended Emergency guardianship which is in progress. Given patient's poor prognosis medical team following him has decided that it is appropriate to " not Escalate treatment " and DNR order placed. 1. Acute CVA/ Coma state Patient is comatose , with fixed pupils, no gag reflex, does not respond to verbal or noxious stimuli, breathing over the vent ( not brain ) MRI brain showed pontine , midbrain, cerebellar hemispheres and thalamic infarct Repeat CT of head 11/28 showed :Gross edematous changes affect cerebellar hemispheres bilaterally sparing only the inferior margins somewhat and causing compression on the the mid to lower brainstem. The 4th ventricle is partially effaced but no obstructive hydrocephalus appreciated at this time. Edema has extend into the bilateral thalami, right greater than left further indicative of expanding infarction. No intracranial hemorrhage. Poor Prognosis Neurology on consult Continue ASA, Statin, Plavix [employer] has been notified Ethics Committee met -rec application for emergency guardianship Given patient's poor prognosis medical team following him has decided a Do not Escalate treatment and DNR order to be in place. 2. Sepsis due to Aspiration Pneumonia Still orally Intubated since 11/16 ( ET tube changed 12/09) on Vent (PVRC/AC 18/450 /5/40%) BP has improved, off levophed drip , afebrile , WBC trended down procalcitonin was elevated 79 trachea aspirate: positive for Citrobacter and 1 blood cx positive for Staph coag negative On Vanco and Cipro at present ID consulted : Dr. Anderson Keep HOB elevated , aspiration, precautions,respiratory toilet with frequent suctioning 3. UTI urine cx positive for Strep viridans completed treatment with Vanco IV for 2 weeks 4. ? Alcoholism unclear if alcoholic, cannot obtain hx however ED note stated that patient has history of ETOH ETOH level low urine Tox : neg Thiamine and FA 5.DVT prophylaxis Acute Lovenox
[2017-12-13] MEDS: Acetaminophen 650mg/20.3ml solution UD PO PRN (16:11)
[2017-12-14 05:49] LABS: BASO # 0.1 K/uL (0.0-0.2); BASO % 0.6 % (0.0-2.0); EOS # 0.2 K/uL (0.0-0.7); EOS % 2.7 % (0.0-4.0); HEMOGLOBIN 9.1 g/dL (12.0-18.0); LYMPH # 1.5 K/uL (1.0-4.3); LYMPH % 18.6 % (20.0-40.0); MEAN CELL VOLUME 92.1 fl (80.0-94.0); MEAN CORPUSCULAR HEMOGLOBIN 30.8 pg (27.0-31.0); MEAN CORPUSCULAR HGB CONC 33.4 g/dL (33.0-37.0); MONO % 11.9 % (0.0-10.0); NEUT # 5.5 K/uL (1.8-7.0); NEUT % 66.2 % (50.0-75.0); NRBC % 0.1 % (0.0-0.0); RBC 2.95 Mil/uL (4.40-5.90); RED CELL DISTRIBUTION WIDTH 16.9 % (11.5-14.5); WHITE BLOOD COUNT 8.3 K/uL (4.8-10.8)
[2017-12-14 06:02] LABS: ABG ALLEN TEST YES; ARTERIAL BLOOD GAS HCO3 32.3 mmol/L (21-28); ARTERIAL BLOOD GAS O2 CAPACITY 12.6 mL/dL (16-24); ARTERIAL BLOOD GAS O2 CONTENT 12.5 ML/dL (15-23); ARTERIAL BLOOD GAS O2 SAT 99.5 % (95-98); ARTERIAL BLOOD GAS PCO2 35 mm/Hg (35-45); ARTERIAL BLOOD GAS PH 7.57 (7.35-7.45); ARTERIAL BLOOD GAS PO2 100 mm/Hg (80-100); ARTERIAL BLOOD GAS TCO2 33.2 mmol/L (22-28)
[2017-12-14 07:45] LABS: ALB/GLOB RATIO 0.7 (1.0-2.1); ALBUMIN 2.9 g/dL (3.5-5.0); ALT/SGPT 22 U/L (21-72); AST/SGOT 60 U/L (17-59); BLOOD UREA NITROGEN 18 mg/dl (9-20); CALCIUM 8.1 mg/dL (8.4-10.2); GFR AFRICAN-AMERICAN > 60; GFR NON-AFRICAN AMERICAN > 60
[2017-12-14] MEDS: Ciprofloxacin 400mg/200ml D5W 400 MG/200 ML BAG IVPB SCH ×2 (08:05→20:17)
[2017-12-14] MEDS: Enoxaparin 40 mg Syringe SC SCH (08:05)
--- NOTE | 2017-12-14 10:19 | CP.CCUPN ---
<Matthieu Duncan - Last Filed: 12/14/17 12:49> CCU Subjective - Physician Review Subjective (Free Text): 62 y/o M seen and examined at bedside this morning. Unresponsive. Intubated. Vent settings A/C rate of 18, FIO2 40, Vt 450, PEEP 5. Pupils fixed. No corneal reflex. No gag. No other acute events. 12/14/17 12:49 CCU Objective - Vital Signs / Intake & Output Vital Signs (Last 4 hours): Vital Signs Temp Pulse Resp BP Pulse Ox 12/14/17 08:00 99.7 F H 95 H 18 123/72 100 Intake and Output (Last 8hrs): Intake & Output 12/13/17 12/14/17 12/14/17 22:59 06:59 14:59 Intake Total 780 530 124 Output Total 1100 1100 Balance -320 -570 124 Weight 150 lb Intake: IV 4 Intake, Piggyback 200 Tube Feeding 480 480 120 Free Water Flush 100 50 Output: Urine 1100 1100 2-way Urethral 1100 1100 - Physical Exam Head: Positive for: Atraumatic, Normocephalic. Negative for: Ecchymosis, Abrasion, Laceration Pupils: Positive for: Non-Reactive. Negative for: PERRL Extroacular Muscles: Negative for: EOMI Conjunctiva: Positive for: Normal. Negative for: Injected, Icteric Ears: Positive for: Normal Mouth: Positive for: Dry Pharnyx: Negative for: ERYTHEMA, EXUDATE, TONSILS ENLARGED Neck: Positive for: Trachea Midline, Other (R. IJ line). Negative for: JVD, Lymphadenopathy Respiratory/Chest: Positive for: Decreased Breath Sounds. Negative for: Clear to Auscultation ( distant breath sounds b/l), Rales, Retracting, Rhonchi Cardiovascular: Positive for: Regular Rate and Rhythm, Normal S1, S2, Peripheal Pulses Present (faint), Tachycardic. Negative for: Rub, Gallop Abdomen: Positive for: Normal Bowel Sounds. Negative for: Distention, Peritoneal Signs Upper Extremity: Positive for: Capillary Refill < 2s. Negative for: Normal Inspection (Mild B/L hand edema), Cyanosis Lower Extremity: Positive for: Capillary Refill < 2 s. Negative for: Edema, NORMAL PULSES (faint), Swelling, Erythema, Temperature Abnormalties Neurological: Negative for: GCS=15 (GCS: 4T), CN II-XII Intact (comatose), Speech Normal (unable to evaluate ), Motor Func Grossly Intact, Normal Sensory Function, Normal Cerebellar Funct Skin: Positive for: Dry, Cold (extremities ). Negative for: Normal Color ( chronic skin hypopigmented lesion B/L LE), Laceration Lymphatic: Negative for: Cervical Adenopathy Psychiatric: Positive for: Other (comatose). Negative for: Alert, Oriented x 3 - Medications Active Medications: Active Medications Generic Name Dose Route Start Last Admin Trade Name Freq PRN Reason Stop Dose Admin Acetaminophen 650 mg 11/27/17 00:56 12/13/17 16:11 Tylenol 650mg/20.3ml Solution Ud PO 650 mg Q6 PRN Administration fever > 100.4 Aspirin 81 mg 11/19/17 09:00 12/14/17 08:05 Aspirin Chewable NG 81 mg DAILY [facility] Administration Atorvastatin Calcium 40 mg 11/17/17 22:00 12/13/17 21:19 Lipitor PO 40 mg HS [facility] Administration Clopidogrel Bisulfate 75 mg 11/18/17 09:45 12/14/17 08:05 Plavix NG 75 mg DAILY [facility] Administration Enoxaparin Sodium 40 mg 11/28/17 09:00 12/14/17 08:05 Lovenox SC 40 mg DAILY [facility] Administration Protocol Famotidine 40 mg 12/02/17 09:00 12/14/17 08:07 Pepcid PO 40 mg DAILY [facility] Administration Folic Acid 1 mg 11/17/17 09:00 12/14/17 08:05 Folic Acid GT 1 mg DAILY [facility] Administration Ciprofloxacin 400 mg in 200 mls @ 200 mls/hr 12/05/17 12:00 12/14/17 08:05 Cipro 400mg/200ml Dsw IVPB 200 mls/hr Q12 [facility] Administration Protocol Thiamine HCl 100 mg 12/12/17 09:00 12/14/17 08:06 Vitamin B1 Tab NG 100 mg DAILY [facility] Administration - Patient Studies Lab Studies: Microbiology Studies 12/05/17 12:08 S.aureus & Coag-Neg Staph PNA FISH - Final Blood Blood Culture - Final Coagulase Neg Staphylococcus Gram Stain - Final Lab Studies 12/14/17 12/14/17 12/14/17 Range/Units 05:31 04:20 04:20 WBC 8.3 (4.8-10.8) K/uL RBC 2.95 L (4.40-5.90) Mil/uL Hgb 9.1 L (12.0-18.0) g/dL Hct 27.1 L (35.0-51.0) % MCV 92.1 (80.0-94.0) fl MCH 30.8 (27.0-31.0) pg MCHC 33.4 (33.0-37.0) g/dL RDW 16.9 H (11.5-14.5) % Plt Count 280 (130-400) K/uL MPV 9.0 (7.2-11.7) fl Neut % (Auto) 66.2 (50.0-75.0) % Lymph % (Auto) 18.6 L (20.0-40.0) % Converse % (Auto) 11.9 H (0.0-10.0) % Eos % (Auto) 2.7 (0.0-4.0) % Baso % (Auto) 0.6 (0.0-2.0) % Neut # (Auto) 5.5 (1.8-7.0) K/uL Lymph # (Auto) 1.5 (1.0-4.3) K/uL Converse # (Auto) 1.0 H (0.0-0.8) K/uL Eos # (Auto) 0.2 (0.0-0.7) K/uL Baso # (Auto) 0.1 (0.0-0.2) K/uL pCO2 35 (35-45) mm/Hg pO2 100 (80-100) mm/Hg HCO3 32.3 H (21-28) mmol/L ABG pH 7.57 H (7.35-7.45) ABG Total CO2 33.2 H (22-28) mmol/L ABG O2 Saturation 99.5 H (95-98) % ABG O2 Content 12.5 L (15-23) ML/dL ABG Base Excess 9.4 H (-2.0-3.0) mmol/L ABG Hemoglobin 9.0 L (11.7-17.4) g/dL ABG Carboxyhemoglobin 1.4 (0.5-1.5) % POC ABG HHb (Measured) 0.5 (0.0-5.0) % ABG Methemoglobin 0.8 (0.0-3.0) % ABG O2 Capacity 12.6 L (16-24) mL/dL Roberto Test Yes A-a O2 Difference 141.0 mm/Hg Hgb O2 Saturation 97.3 (95.0-98.0) % Vent Mode Prvc ac Mechanical Rate 18 FiO2 40.0 % Tidal Volume 450 PEEP 5 Sodium 137 (132-148) mmol/l Potassium 4.1 (3.6-5.0) MMOL/L Chloride 96 L (98-107) mmol/L Carbon Dioxide 35 H (22-30) mmol/L Anion Gap 10 (10-20) BUN 18 (9-20) mg/dl Creatinine 0.5 L (0.8-1.5) mg/dl Est GFR ( Amer) > 60 Est GFR (Non-Af Amer) > 60 Random Glucose 102 (75-110) mg/dL Calcium 8.1 L (8.4-10.2) mg/dL Total Bilirubin 0.4 (0.2-1.3) mg/dl AST 60 H D (17-59) U/L ALT 22 (21-72) U/L Alkaline Phosphatase 109 (38-126) U/L Total Protein 7.2 (6.3-8.2) G/DL Albumin 2.9 L (3.5-5.0) g/dL Globulin 4.3 H (2.2-3.9) gm/dL Albumin/Globulin Ratio 0.7 L (1.0-2.1) Laboratory Results - last 24 hr 12/14/17 12/14/17 12/14/17 04:20 04:20 05:31 WBC 8.3 RBC 2.95 L Hgb 9.1 L Hct 27.1 L MCV 92.1 MCH 30.8 MCHC 33.4 RDW 16.9 H Plt Count 280 MPV 9.0 Neut % (Auto) 66.2 Lymph % (Auto) 18.6 L Converse % (Auto) 11.9 H Eos % (Auto) 2.7 Baso % (Auto) 0.6 Neut # (Auto) 5.5 Lymph # (Auto) 1.5 Converse # (Auto) 1.0 H Eos # (Auto) 0.2 Baso # (Auto) 0.1 pCO2 35 pO2 100 HCO3 32.3 H ABG pH 7.57 H ABG Total CO2 33.2 H ABG O2 Saturation 99.5 H ABG O2 Content 12.5 L ABG Base Excess 9.4 H ABG Hemoglobin 9.0 L ABG Carboxyhemoglobin 1.4 POC ABG HHb (Measured) 0.5 ABG Methemoglobin 0.8 ABG O2 Capacity 12.6 L Roberto Test Yes A-a O2 Difference 141.0 Hgb O2 Saturation 97.3 Vent Mode Prvc ac Mechanical Rate 18 FiO2 40.0 Tidal Volume 450 PEEP 5 Sodium 137 Potassium 4.1 Chloride 96 L Carbon Dioxide 35 H Anion Gap 10 BUN 18 Creatinine 0.5 L Est GFR ( Amer) > 60 Est GFR (Non-Af Amer) > 60 Random Glucose 102 Calcium 8.1 L Total Bilirubin 0.4 AST 60 H D ALT 22 Alkaline Phosphatase 109 Total Protein 7.2 Albumin 2.9 L Globulin 4.3 H Albumin/Globulin Ratio 0.7 L Fingerstick Blood Sugar Results: 142 Critical Care Progress Note - Ventilator Checklist Head of Bed 30 Degrees: Yes Daily Sedation Vacation: No Daily Assessment of Readiness to Wean: No Daily Spontaneous Breathing Trial: No PUD Prophalyxis: Yes DVT Prophylaxis: Yes - Vent Settings MODE:: ASSIST CONTROL TIDAL VOLUME:: 450 RESP RATE:: 14 FIO2:: 40 PEEP:: 5 - Extremities/Vascular Does the Patient have a Central Venous Catheter?: Yes Insertion Site: Internal Jugular Vein Does the Patient need a Central Venous Catheter?: Yes Does the Patient have a Holloway Catheter?: Yes Does the Patient need a Holloway Catheter?: Yes Catheter Insertion Criteria: Patient requires prolonged immobilization - Prophylaxis GI Prophylaxis GI: Pepsid - Prophylaxis DVT Prophylaxis DVT: Lovenox Assessment/Plan - Assessment and Plan (Free Text) Assessment: 63 y/o male, with unobtainable medical history, 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 Comatose Acute CVA/Coma -Brain MRI: acute pontine infaract with extension to midbrain. Smaller cerebellar infarcts b/l -Intubated -GCS 4T -c/w respiratory support and tube feedings -aspirin/plavix as per neuro -atorvastatin 40mg -poor prognosis/Ethic committee review. guardianship pending Acid-base imbalance Alkalotic PH 7.57, HCO3 32.3 Vent rate decreased to 14 to try to improve alkalosis Coagulase Negative Staph Bacteremia -Vanco IV stopped by primary care team because patient finished 10 days of IV Vanco before and only 1 of 2 BCx came back +. -F/U Repeated BCx today -WBC: 8.3 -Temp 99.7 Respiratory Failure secondary CVA -2/2 to Acute CVA -intubated -continues to trigger vent -Rate decreased to 14, Vt 450, FIO2 40.0, PEEP 5 -Monitor ABGs Aspiration Pneumonia -Copious secretions -C/W Cipro IV Anemia of Unknown Etiology -Stable -H/H 9.1/27.1 -No clinical evidence of acute bleeding -monitor H/H and VS Prophylaxis -Head of bed elevation @ 30 degrees -Pepcid 40 mg daily -Lovenox 40mg SC QD -SCDs Code Status: -DNR -Overall extremely poor prognosis <Talib Montejo - Last Filed: 12/14/17 17:03> CCU Subjective - Physician Review Subjective (Free Text): Attestation: Patient seen and examined at the bedside with Resident Dr. Jayson Duncan; and I agree with his outline of plans and management documented below as discussed on AM rounds reflecting my review of all applicable clinical data, and participation in the care of the patient throughout the day in ICU; today, December 14, 2017.
--- NOTE | 2017-12-14 11:18 | CP.PCM.PN ---
Subjective - Date & Time of Evaluation Date of Evaluation: 12/14/17 Time of Evaluation: 11:00 - Subjective Subjective: Pt was febrile up to 102 yesterday remains intubated on Mech Vent 18/450/5/40% Responds to deep pain however pupils nonreactive, breaths over Vent awaiting Guardianship - application in progress ( as per , likely will be approved this week) Tolerating Tube feeding Objective - Vital Signs/Intake and Output Vital Signs (last 24 hours): Temp Pulse Resp BP Pulse Ox 99.7 F H 95 H 18 123/72 100 12/14/17 08:00 12/14/17 08:00 12/14/17 08:00 12/14/17 08:00 12/14/17 08:00 Intake and Output: 12/14/17 12/14/17 06:59 18:59 Intake Total 1020 124 Output Total 1100 Balance -80 124 - Medications Medications: Current Medications Acetaminophen (Tylenol 650mg/20.3ml Solution Ud) 650 mg PO Q6 PRN PRN Reason: fever > 100.4 Last Admin: 12/13/17 16:11 Dose: 650 mg Aspirin (Aspirin Chewable) 81 mg NG DAILY [facility] Last Admin: 12/14/17 08:05 Dose: 81 mg Atorvastatin Calcium (Lipitor) 40 mg PO HS [facility] Last Admin: 12/13/17 21:19 Dose: 40 mg Clopidogrel Bisulfate (Plavix) 75 mg NG DAILY [facility] Last Admin: 12/14/17 08:05 Dose: 75 mg Enoxaparin Sodium (Lovenox) 40 mg SC DAILY [facility] PRN Reason: Protocol Last Admin: 12/14/17 08:05 Dose: 40 mg Famotidine (Pepcid) 40 mg PO DAILY [facility] Last Admin: 12/14/17 08:07 Dose: 40 mg Folic Acid (Folic Acid) 1 mg GT DAILY [facility] Last Admin: 12/14/17 08:05 Dose: 1 mg Ciprofloxacin (Cipro 400mg/200ml Dsw) 400 mg in 200 mls @ 200 mls/hr IVPB Q12 [facility]IA PRN Reason: Protocol Last Admin: 12/14/17 08:05 Dose: 200 mls/hr Thiamine HCl (Vitamin B1 Tab) 100 mg NG DAILY [facility] Last Admin: 12/14/17 08:06 Dose: 100 mg - Labs Labs: 12/14/17 04:20 12/14/17 04:20 PT 14.1 Seconds (9.8-13.1) H 12/01/17 09:44 INR 1.3 (0.9-1.2) H 12/01/17 09:44 APTT 34.4 Seconds (25.6-37.1) 12/01/17 09:44 - Constitutional Appears: chronically ill, Intubated on Vent (PVRC/AC 40% FiO2) - Head Exam Head Exam: NORMAL INSPECTION, NORMOCEPHALIC - Eye Exam Eye Exam: Pupil Exam: Fixed, 4mm, not reactive to light - ENT Exam ENT Exam: Mucous Membranes Dry, Normal External Ear Exam - Neck Exam Neck Exam: absent: Meningismus - Respiratory Exam Respiratory Exam: Rhonchi, coarse rales Additional comments: Intubated on Vent - Cardiovascular Exam Cardiovascular Exam: REGULAR RHYTHM, +S1, +S2 - GI/Abdominal Exam GI & Abdominal Exam: Soft, Normal Bowel Sounds OGT in place - Extremities Exam Extremities Exam: Pedal Edema, edematous upper ext Skin : mottled - Neurological Exam Additional comments: responds to deep pain by sl movement fixed pupils no gag reflex breathes over the Vent Assessment and Plan (1) Acute CVA (cerebrovascular accident) Status: Acute (2) Altered mental status Status: Acute (3) Slurring of speech Status: Acute (4) HTN (hypertension) Status: Chronic (5) Acute metabolic encephalopathy Status: Acute (6) Acute respiratory insufficiency Status: Acute (7) DVT prophylaxis Status: Acute - Assessment and Plan (Free Text) Assessment: : 62y/o White male , initially admitted as Tez White , now identified by Police as Jesus Grayson , unknown PMH was brought by EMS after he was observed by bystanders falling in the street. Patient was lethargic on admission however arousable , noted to have a facial droop and his speech was slurred. 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 He was transferred to ICU and intubated for airway protection. Repeat CT of head showed no change but MRI showed pontine, midbrain, cerebellar hemispheres and thalami infarct. 11/22: With episode of vomiting and possible aspiration became hypotensive, tachycardic, febrile, and hypoxemic Repeat CT head 11/28 showed :Gross edematous changes affect cerebellar hemispheres bilaterally sparing only the inferior margins somewhat and causing compression on the the mid to lower brainstem. The 4th ventricle is partially effaced but no obstructive hydrocephalus appreciated at this time. Edema has extend into the bilateral thalami, right greater than left further indicative of expanding infarction. No intracranial hemorrhage. Ethics Committee meeting recommended Emergency guardianship which is in progress. Given patient's poor prognosis medical team following him has decided that it is appropriate to " not Escalate treatment " and DNR order placed. 1. Acute CVA/ Coma state Patient is comatose , with fixed pupils, no gag reflex, does not respond to verbal or noxious stimuli, howevere breathing over the vent ( not brain ) MRI brain showed pontine , midbrain, cerebellar hemispheres and thalamic infarct Repeat CT of head 11/28 showed :Gross edematous changes affect cerebellar hemispheres bilaterally sparing only the inferior margins somewhat and causing compression on the the mid to lower brainstem. The 4th ventricle is partially effaced but no obstructive hydrocephalus appreciated at this time. Edema has extend into the bilateral thalami, right greater than left further indicative of expanding infarction. No intracranial hemorrhage. Poor Prognosis Neurology on consult Continue ASA, Statin, Plavix Sharing network has been notified Ethics Committee met - application for emergency guardianship Given patient's poor prognosis medical team following him has decided a Do not Escalate treatment and DNR order in place. 2. Sepsis due to Aspiration Pneumonia Still orally Intubated since 11/16 ( ET tube changed 12/09) on Vent (PVRC/AC 18/450 /5/40%) BP has improved, off levophed drip , afebrile , WBC trended down procalcitonin was elevated 79 trachea aspirate: positive for Citrobacter and 1 blood cx positive for Staph coag negative ( ? contaminant), rpt Blood c/s done On Cipro at present received IV Vanco -now off ID consulted : Dr. Anderson Keep HOB elevated , aspiration, precautions,respiratory toilet with frequent suctioning 3. UTI urine cx positive for Strep viridans completed treatment with Vanco IV for 2 weeks 4. ? Alcoholism unclear if alcoholic, cannot obtain hx however ED note stated that patient has history of ETOH ETOH level low urine Tox : neg Thiamine and FA 5.DVT prophylaxis Acute Lovenox
--- NOTE | 2017-12-14 13:23 | RAD ---
HISTORY: ETT placement COMPARISON: 12/13/2017 FINDINGS: LUNGS: Current study less exposed. Pulmonary venous congestion early similar albeit more conspicuous PLEURA: Possible left pleural effusion left costophrenic angle obliterated -more obscured on this exam te CARDIOVASCULAR: Cardiomegaly as before Atherosclerotic vascular calcifications present. . OSSEOUS STRUCTURES: Degenerative changes VISUALIZED UPPER ABDOMEN: Normal. OTHER FINDINGS: Endotracheal tube tip approximately 3 cm from the haresh. Right internal jugular vein central line tip superior vena cava. Nasogastric distal to seen over stomach IMPRESSION: Limited exam for reasons stated above. No definitive interval pathology noted.
[2017-12-15 04:01] LABS: ABG ALLEN TEST YES; ARTERIAL BLOOD GAS HCO3 31.5 mmol/L (21-28); ARTERIAL BLOOD GAS O2 CAPACITY 13.9 mL/dL (16-24); ARTERIAL BLOOD GAS O2 CONTENT 13.8 ML/dL (15-23); ARTERIAL BLOOD GAS O2 SAT 99.3 % (95-98); ARTERIAL BLOOD GAS PCO2 44 mm/Hg (35-45); ARTERIAL BLOOD GAS PH 7.48 (7.35-7.45); ARTERIAL BLOOD GAS PO2 105 mm/Hg (80-100); ARTERIAL BLOOD GAS TCO2 34.2 mmol/L (22-28)
[2017-12-15 05:37] LABS: BASO # 0.1 K/uL (0.0-0.2); BASO % 0.8 % (0.0-2.0); EOS # 0.4 K/uL (0.0-0.7); EOS % 4.2 % (0.0-4.0); HEMOGLOBIN 9.8 g/dL (12.0-18.0); LYMPH # 1.4 K/uL (1.0-4.3); LYMPH % 16.6 % (20.0-40.0); MEAN CELL VOLUME 91.9 fl (80.0-94.0); MEAN CORPUSCULAR HEMOGLOBIN 30.7 pg (27.0-31.0); MEAN CORPUSCULAR HGB CONC 33.4 g/dL (33.0-37.0); MEAN PLATELET VOLUME 8.3 fl (7.2-11.7); MONO # 0.9 K/uL (0.0-0.8); MONO % 10.2 % (0.0-10.0); NEUT # 5.9 K/uL (1.8-7.0); NEUT % 68.2 % (50.0-75.0); RBC 3.18 Mil/uL (4.40-5.90); RED CELL DISTRIBUTION WIDTH 17.4 % (11.5-14.5); WHITE BLOOD COUNT 8.7 K/uL (4.8-10.8)
[2017-12-15 05:51] LABS: BLOOD UREA NITROGEN 19 mg/dl (9-20); CALCIUM 8.3 mg/dL (8.4-10.2); GFR AFRICAN-AMERICAN > 60; GFR NON-AFRICAN AMERICAN > 60
--- NOTE | 2017-12-15 07:50 | CP.PCM.PN ---
Subjective - Date & Time of Evaluation Date of Evaluation: 12/15/17 Time of Evaluation: 07:30 - Subjective Subjective: Patient seen and examined bedside. Comatose, intubated on MV PRVC AC mode 14/450 /5/40% n ABG 44/105/31/7.48 With thick copious yellowish secretions being suctioned via ET tube No changes neurologically, no gag reflex, sluggish pupillary reflex, no cornea reflex With on and off cough reflex Breathing over the vent. Does not respond to noxious stimuli BP 107/66 HR 102 Tmax 100.5 WBC 8.7 Hgb 9.8 Plt 336 K CXR stable , no infiltrates Objective - Vital Signs/Intake and Output Vital Signs (last 24 hours): Temp Pulse Resp BP Pulse Ox 98.5 F 70 23 133/80 95 12/15/17 04:00 12/15/17 06:00 12/15/17 06:00 12/15/17 06:00 12/15/17 06:00 Intake and Output: 12/15/17 12/15/17 06:59 18:59 Intake Total 620 Output Total 1000 Balance -380 - Medications Medications: Current Medications Acetaminophen (Tylenol 650mg/20.3ml Solution Ud) 650 mg PO Q6 PRN PRN Reason: fever > 100.4 Last Admin: 12/13/17 16:11 Dose: 650 mg Aspirin (Aspirin Chewable) 81 mg NG DAILY [facility] Last Admin: 12/14/17 08:05 Dose: 81 mg Atorvastatin Calcium (Lipitor) 40 mg PO HS [facility] Last Admin: 12/14/17 22:43 Dose: 40 mg Clopidogrel Bisulfate (Plavix) 75 mg NG DAILY [facility] Last Admin: 12/14/17 08:05 Dose: 75 mg Enoxaparin Sodium (Lovenox) 40 mg SC DAILY [facility] PRN Reason: Protocol Last Admin: 12/14/17 08:05 Dose: 40 mg Famotidine (Pepcid) 40 mg PO DAILY [facility] Last Admin: 12/14/17 08:07 Dose: 40 mg Folic Acid (Folic Acid) 1 mg GT DAILY [facility] Last Admin: 12/14/17 08:05 Dose: 1 mg Ciprofloxacin (Cipro 400mg/200ml Dsw) 400 mg in 200 mls @ 200 mls/hr IVPB Q12 [facility] PRN Reason: Protocol Last Admin: 12/14/17 20:17 Dose: 200 mls/hr Thiamine HCl (Vitamin B1 Tab) 100 mg NG DAILY [facility] Last Admin: 12/14/17 08:06 Dose: 100 mg - Labs Labs: 12/15/17 04:20 12/15/17 04:20 PT 14.1 Seconds (9.8-13.1) H 12/01/17 09:44 INR 1.3 (0.9-1.2) H 12/01/17 09:44 APTT 34.4 Seconds (25.6-37.1) 12/01/17 09:44 - Constitutional Appears: Chronically Ill, Other (comatose, intubated ) - Head Exam Head Exam: ATRAUMATIC, NORMOCEPHALIC - Eye Exam Additional comments: pupils equal in size with sluggish response to light stimuli - ENT Exam ENT Exam: Mucous Membranes Dry - Neck Exam Neck Exam: Normal Inspection - Respiratory Exam Respiratory Exam: Clear to Ausculation Bilateral, NORMAL BREATHING PATTERN. absent: Rhonchi, Wheezes - Cardiovascular Exam Cardiovascular Exam: REGULAR RHYTHM, RRR, +S1, +S2. absent: JVD - GI/Abdominal Exam GI & Abdominal Exam: Soft, Normal Bowel Sounds. absent: Distended, Guarding, Rebound - Rectal Exam Rectal Exam: Deferred - Extremities Exam Extremities Exam: Pedal Edema (1 +) - Neurological Exam Additional comments: comatose no gag reflex sluggish pupils no response to noxious stimuli - Skin Skin Exam: Dry, Warm Assessment and Plan - Assessment and Plan (Free Text) Assessment: 62y/o White male , initially admitted as Tez White , now identified by Police as Jesus Grayson , unknown PMH was brought by EMS after he was observed by bystanders falling in the street. Patient was lethargic on admission however arousable , noted to have a facial droop and his speech was slurred. 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 He was transferred to ICU and intubated for airway protection. Repeat CT of head showed no change but MRI showed pontine, midbrain, cerebellar hemispheres and thalami infarct. 11/22: With episode of vomiting and possible aspiration became hypotensive, tachycardic, febrile, and hypoxemic Repeat CT head 11/28 showed :Gross edematous changes affect cerebellar hemispheres bilaterally sparing only the inferior margins somewhat and causing compression on the the mid to lower brainstem. The 4th ventricle is partially effaced but no obstructive hydrocephalus appreciated at this time. Edema has extend into the bilateral thalami, right greater than left further indicative of expanding infarction. No intracranial hemorrhage. Ethics Committee meeting recommended Emergency guardianship which is in progress. Given patient's poor prognosis medical team following him has decided that it is appropriate to " not Escalate treatment " and DNR order placed. 1. Acute CVA/ Coma state Patient is comatose , with sluggish pupils, no gag reflex, does not respond to verbal or noxious stimuli, however breathing over the vent ( not brain ) MRI brain showed pontine , midbrain, cerebellar hemispheres and thalamic infarct Repeat CT of head 11/28 showed :Gross edematous changes affect cerebellar hemispheres bilaterally sparing only the inferior margins somewhat and causing compression on the the mid to lower brainstem. The 4th ventricle is partially effaced but no obstructive hydrocephalus appreciated at this time. Edema has extend into the bilateral thalami, right greater than left further indicative of expanding infarction. No intracranial hemorrhage. Poor Prognosis Neurology on consult Continue ASA, Statin, Plavix Sharing network has been notified Ethics Committee met - application for emergency guardianship Given patient's poor prognosis medical team following him has decided a Do not Escalate treatment and DNR order in place. 2. Sepsis due to Aspiration Pneumonia Still orally Intubated since 11/16 ( ET tube changed 12/09) on Vent (PVRC/AC 14/450 /5/40%) BP has improved, off levophed drip , afebrile , WBC trended down procalcitonin was elevated 79 trachea aspirate: positive for Citrobacter and 1 blood cx positive for Staph coag negative ( ? contaminant),. follow up repeat blood cultures On Cipro at present received IV Vanco -now off ID consulted : Dr. Anderson Keep HOB elevated , aspiration, precautions,respiratory toilet with frequent suctioning 3. UTI urine cx positive for Strep viridans completed treatment with Vanco IV for 2 weeks 4. ? Alcoholism unclear if alcoholic, cannot obtain hx however ED note stated that patient has history of ETOH ETOH level low urine Tox : neg Thiamine and FA 5.DVT prophylaxis Acute Lovenox
--- NOTE | 2017-12-15 09:41 | RAD ---
HISTORY: intubated COMPARISON: Chest radiograph dated 12/14/2017 FINDINGS: LUNGS: Mildly improved pulmonary vascular congestion. No active pulmonary disease. PLEURA: No significant pleural effusion identified, no pneumothorax apparent. CARDIOVASCULAR: Atherosclerotic aortic calcifications. Cardiomediastinal silhouette within normal meds. OSSEOUS STRUCTURES: Unchanged. VISUALIZED UPPER ABDOMEN: Normal. OTHER FINDINGS: Endotracheal and enteric tubes, unchanged. Right internal jugular access central venous catheter, unchanged. IMPRESSION: Improved pulmonary vascular congestion. Stable tubes and lines. No other significant interval change.
[2017-12-15] MEDS: Ciprofloxacin 400mg/200ml D5W 400 MG/200 ML BAG IVPB SCH ×2 (09:42→20:37)
[2017-12-15] MEDS: Enoxaparin 40 mg Syringe SC SCH (09:43)
--- NOTE | 2017-12-15 10:50 | CP.CCUPN ---
<Matthieu Duncan - Last Filed: 12/15/17 10:57> CCU Subjective - Physician Review Subjective (Free Text): 12/15/17 10:48 62 y/o M seen and examined at bedside this morning. Unresponsive. Intubated. Vent settings A/C rate of 14, FIO2 40, Vt 450, PEEP 5. Pupils fixed. No corneal reflex. No gag. No other acute events. On and off cough reflex. CCU Objective - Vital Signs / Intake & Output Vital Signs (Last 4 hours): Vital Signs Temp Pulse Resp BP Pulse Ox 12/15/17 08:00 99.9 F H 99 H 13 107/66 100 Intake and Output (Last 8hrs): Intake & Output 12/14/17 12/15/17 12/15/17 22:59 06:59 14:59 Intake Total 778 136 300 Output Total 1100 1000 Balance -322 -864 300 Weight 150 lb Intake: IV 8 16 Intake, Piggyback 250 250 Tube Feeding 420 120 Free Water Flush 100 50 Output: Urine 1100 1000 2-way Urethral 1100 1000 - Physical Exam Head: Positive for: Atraumatic, Normocephalic. Negative for: Ecchymosis, Abrasion, Laceration Pupils: Positive for: Non-Reactive. Negative for: PERRL Extroacular Muscles: Negative for: EOMI Conjunctiva: Positive for: Normal. Negative for: Injected, Icteric Ears: Positive for: Normal Mouth: Positive for: Dry Pharnyx: Negative for: ERYTHEMA, EXUDATE, TONSILS ENLARGED Neck: Positive for: Trachea Midline, Other (R. IJ line). Negative for: JVD, Lymphadenopathy Respiratory/Chest: Positive for: Decreased Breath Sounds. Negative for: Clear to Auscultation ( distant breath sounds b/l), Rales, Retracting, Rhonchi Cardiovascular: Positive for: Regular Rate and Rhythm, Normal S1, S2, Peripheal Pulses Present (faint), Tachycardic. Negative for: Rub, Gallop Abdomen: Positive for: Normal Bowel Sounds. Negative for: Distention, Peritoneal Signs Upper Extremity: Positive for: Capillary Refill < 2s. Negative for: Normal Inspection (Mild B/L hand edema), Cyanosis Lower Extremity: Positive for: Capillary Refill < 2 s. Negative for: Edema, NORMAL PULSES (faint), Swelling, Erythema, Temperature Abnormalties Neurological: Negative for: GCS=15 (GCS: 4T), CN II-XII Intact (comatose), Speech Normal (unable to evaluate ), Motor Func Grossly Intact, Normal Sensory Function, Normal Cerebellar Funct Skin: Positive for: Dry, Cold (extremities ). Negative for: Normal Color ( chronic skin hypopigmented lesion B/L LE), Laceration Lymphatic: Negative for: Cervical Adenopathy Psychiatric: Positive for: Other (comatose). Negative for: Alert, Oriented x 3 - Medications Active Medications: Active Medications Generic Name Dose Route Start Last Admin Trade Name Freq PRN Reason Stop Dose Admin Acetaminophen 650 mg 11/27/17 00:56 12/13/17 16:11 Tylenol 650mg/20.3ml Solution Ud PO 650 mg Q6 PRN Administration fever > 100.4 Aspirin 81 mg 11/19/17 09:00 12/15/17 09:42 Aspirin Chewable NG 81 mg DAILY ZIA Administration Atorvastatin Calcium 40 mg 11/17/17 22:00 12/14/17 22:43 Lipitor PO 40 mg HS ZIA Administration Clopidogrel Bisulfate 75 mg 11/18/17 09:45 12/15/17 09:44 Plavix NG 75 mg DAILY [facility]IA Administration Enoxaparin Sodium 40 mg 11/28/17 09:00 12/15/17 09:43 Lovenox SC 40 mg DAILY ZIA Administration Protocol Famotidine 40 mg 12/02/17 09:00 12/15/17 09:43 Pepcid PO 40 mg DAILY ZIA Administration Folic Acid 1 mg 11/17/17 09:00 12/15/17 09:43 Folic Acid GT 1 mg DAILY [facility]IA Administration Ciprofloxacin 400 mg in 200 mls @ 200 mls/hr 12/05/17 12:00 12/15/17 09:42 Cipro 400mg/200ml Dsw IVPB 200 mls/hr Q12 ZIA Administration Protocol Thiamine HCl 100 mg 12/12/17 09:00 12/15/17 09:44 Vitamin B1 Tab NG 100 mg DAILY ZIA Administration - Patient Studies Lab Studies: Microbiology Studies 12/14/17 04:20 Blood Culture - Preliminary Blood NO GROWTH AFTER 24 HOURS Lab Studies 12/15/17 12/15/17 12/15/17 Range/Units 04:20 04:20 03:40 WBC 8.7 (4.8-10.8) K/uL RBC 3.18 L (4.40-5.90) Mil/uL Hgb 9.8 L (12.0-18.0) g/dL Hct 29.2 L (35.0-51.0) % MCV 91.9 (80.0-94.0) fl MCH 30.7 (27.0-31.0) pg MCHC 33.4 (33.0-37.0) g/dL RDW 17.4 H (11.5-14.5) % Plt Count 336 (130-400) K/uL MPV 8.3 (7.2-11.7) fl Neut % (Auto) 68.2 (50.0-75.0) % Lymph % (Auto) 16.6 L (20.0-40.0) % [place] % (Auto) 10.2 H (0.0-10.0) % Eos % (Auto) 4.2 H (0.0-4.0) % Baso % (Auto) 0.8 (0.0-2.0) % Neut # (Auto) 5.9 (1.8-7.0) K/uL Lymph # (Auto) 1.4 (1.0-4.3) K/uL [place] # (Auto) 0.9 H (0.0-0.8) K/uL Eos # (Auto) 0.4 (0.0-0.7) K/uL Baso # (Auto) 0.1 (0.0-0.2) K/uL pCO2 44 (35-45) mm/Hg pO2 105 H (80-100) mm/Hg HCO3 31.5 H (21-28) mmol/L ABG pH 7.48 H (7.35-7.45) ABG Total CO2 34.2 H (22-28) mmol/L ABG O2 Saturation 99.3 H (95-98) % ABG O2 Content 13.8 L (15-23) ML/dL ABG Base Excess 8.4 H (-2.0-3.0) mmol/L ABG Hemoglobin 10.0 L (11.7-17.4) g/dL ABG Carboxyhemoglobin 1.5 (0.5-1.5) % POC ABG HHb (Measured) 0.7 (0.0-5.0) % ABG Methemoglobin 0.9 (0.0-3.0) % ABG O2 Capacity 13.9 L (16-24) mL/dL Roberto Test Yes A-a O2 Difference 125.0 mm/Hg Hgb O2 Saturation 96.9 (95.0-98.0) % Vent Mode Prvc ac Mechanical Rate 14 FiO2 40.0 % Tidal Volume 450 PEEP 5 Sodium 137 (132-148) mmol/l Potassium 3.9 (3.6-5.0) MMOL/L Chloride 94 L (98-107) mmol/L Carbon Dioxide 37 H (22-30) mmol/L Anion Gap 10 (10-20) BUN 19 (9-20) mg/dl Creatinine 0.6 L (0.8-1.5) mg/dl Est GFR ( Amer) > 60 Est GFR (Non-Af Amer) > 60 Random Glucose 114 H (75-110) mg/dL Calcium 8.3 L (8.4-10.2) mg/dL Procalcitonin (0.19-0.49) NG/ML 12/14/17 Range/Units 04:20 WBC (4.8-10.8) K/uL RBC (4.40-5.90) Mil/uL Hgb (12.0-18.0) g/dL Hct (35.0-51.0) % MCV (80.0-94.0) fl MCH (27.0-31.0) pg MCHC (33.0-37.0) g/dL RDW (11.5-14.5) % Plt Count (130-400) K/uL MPV (7.2-11.7) fl Neut % (Auto) (50.0-75.0) % Lymph % (Auto) (20.0-40.0) % [place] % (Auto) (0.0-10.0) % Eos % (Auto) (0.0-4.0) % Baso % (Auto) (0.0-2.0) % Neut # (Auto) (1.8-7.0) K/uL Lymph # (Auto) (1.0-4.3) K/uL [place] # (Auto) (0.0-0.8) K/uL Eos # (Auto) (0.0-0.7) K/uL Baso # (Auto) (0.0-0.2) K/uL pCO2 (35-45) mm/Hg pO2 (80-100) mm/Hg HCO3 (21-28) mmol/L ABG pH (7.35-7.45) ABG Total CO2 (22-28) mmol/L ABG O2 Saturation (95-98) % ABG O2 Content (15-23) ML/dL ABG Base Excess (-2.0-3.0) mmol/L ABG Hemoglobin (11.7-17.4) g/dL ABG Carboxyhemoglobin (0.5-1.5) % POC ABG HHb (Measured) (0.0-5.0) % ABG Methemoglobin (0.0-3.0) % ABG O2 Capacity (16-24) mL/dL Roberto Test A-a O2 Difference mm/Hg Hgb O2 Saturation (95.0-98.0) % Vent Mode Mechanical Rate FiO2 % Tidal Volume PEEP Sodium (132-148) mmol/l Potassium (3.6-5.0) MMOL/L Chloride (98-107) mmol/L Carbon Dioxide (22-30) mmol/L Anion Gap (10-20) BUN (9-20) mg/dl Creatinine (0.8-1.5) mg/dl Est GFR ( Amer) Est GFR (Non-Af Amer) Random Glucose (75-110) mg/dL Calcium (8.4-10.2) mg/dL Procalcitonin 0.08 L (0.19-0.49) NG/ML Laboratory Results - last 24 hr 12/14/17 12/15/17 12/15/17 04:20 03:40 04:20 WBC 8.7 RBC 3.18 L Hgb 9.8 L Hct 29.2 L MCV 91.9 MCH 30.7 MCHC 33.4 RDW 17.4 H Plt Count 336 MPV 8.3 Neut % (Auto) 68.2 Lymph % (Auto) 16.6 L [place] % (Auto) 10.2 H Eos % (Auto) 4.2 H Baso % (Auto) 0.8 Neut # (Auto) 5.9 Lymph # (Auto) 1.4 [place] # (Auto) 0.9 H Eos # (Auto) 0.4 Baso # (Auto) 0.1 pCO2 44 pO2 105 H HCO3 31.5 H ABG pH 7.48 H ABG Total CO2 34.2 H ABG O2 Saturation 99.3 H ABG O2 Content 13.8 L ABG Base Excess 8.4 H ABG Hemoglobin 10.0 L ABG Carboxyhemoglobin 1.5 POC ABG HHb (Measured) 0.7 ABG Methemoglobin 0.9 ABG O2 Capacity 13.9 L Roberto Test Yes A-a O2 Difference 125.0 Hgb O2 Saturation 96.9 Vent Mode Prvc ac Mechanical Rate 14 FiO2 40.0 Tidal Volume 450 PEEP 5 Sodium Potassium Chloride Carbon Dioxide Anion Gap BUN Creatinine Est GFR ( Amer) Est GFR (Non-Af Amer) Random Glucose Calcium Procalcitonin 0.08 L 12/15/17 04:20 WBC RBC Hgb Hct MCV MCH MCHC RDW Plt Count MPV Neut % (Auto) Lymph % (Auto) [place] % (Auto) Eos % (Auto) Baso % (Auto) Neut # (Auto) Lymph # (Auto) [place] # (Auto) Eos # (Auto) Baso # (Auto) pCO2 pO2 HCO3 ABG pH ABG Total CO2 ABG O2 Saturation ABG O2 Content ABG Base Excess ABG Hemoglobin ABG Carboxyhemoglobin POC ABG HHb (Measured) ABG Methemoglobin ABG O2 Capacity Roberto Test A-a O2 Difference Hgb O2 Saturation Vent Mode Mechanical Rate FiO2 Tidal Volume PEEP Sodium 137 Potassium 3.9 Chloride 94 L Carbon Dioxide 37 H Anion Gap 10 BUN 19 Creatinine 0.6 L Est GFR ( Amer) > 60 Est GFR (Non-Af Amer) > 60 Random Glucose 114 H Calcium 8.3 L Procalcitonin Fingerstick Blood Sugar Results: 142 Review of Systems - Review of Systems Systems not reviewed;Unavailable: Acuity of Condition Critical Care Progress Note - Ventilator Checklist Head of Bed 30 Degrees: Yes Daily Sedation Vacation: No Daily Assessment of Readiness to Wean: No Daily Spontaneous Breathing Trial: No PUD Prophalyxis: Yes DVT Prophylaxis: Yes - Vent Settings MODE:: ASSIST CONTROL TIDAL VOLUME:: 450 RESP RATE:: 14 FIO2:: 40 PEEP:: 5 - Extremities/Vascular Does the Patient have a Central Venous Catheter?: Yes Insertion Site: Internal Jugular Vein Does the Patient need a Central Venous Catheter?: Yes Does the Patient have a Holloway Catheter?: Yes Does the Patient need a Holloway Catheter?: Yes Catheter Insertion Criteria: Patient requires prolonged immobilization - Prophylaxis GI Prophylaxis GI: Pepsid - Prophylaxis DVT Prophylaxis DVT: Lovenox Assessment/Plan - Assessment and Plan (Free Text) Assessment: 63 y/o male, with unobtainable medical history, 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 Smaller cerebellar infarcts b/l -Intubated -GCS 4T -c/w respiratory support and tube feedings -aspirin/plavix as per neuro -atorvastatin 40mg -poor prognosis/Ethic committee review. guardianship pending Acid-base imbalance Improved Alkalotic PH 7.48 HCO3 31.5 C/W Current vent settings Coagulase Negative Staph Bacteremia -Vanco IV stopped by primary care team because patient finished 10 days of IV Vanco before and only 1 of 2 BCx came back +. -Repeat BCx from 12/14/17 no growth so far -WBC WNL -Temp 99.9 Respiratory Failure secondary CVA -2/2 to Acute CVA -intubated -continues to trigger vent -C/W 14, Vt 450, FIO2 40.0, PEEP 5 -Monitor ABGs Aspiration Pneumonia -Copious secretions -C/W Cipro IV -CXR mild improvement on vasc congestion Anemia of Unknown Etiology -Stable -No clinical evidence of acute bleeding -monitor H/H and VS Prophylaxis -Head of bed elevation @ 30 degrees -Pepcid 40 mg daily -Lovenox 40mg SC QD -SCDs Code Status: -DNR -Overall extremely poor prognosis <MontejoTalibn - Last Filed: 12/15/17 12:37> CCU Subjective - Physician Review Subjective (Free Text): Attestation: Patient seen and examined at the bedside with Resident Dr. Jayson Duncan; and I agree with his outline of plans and management documented below as discussed on AM rounds reflecting my review of all applicable clinical data, and participation in the care of the patient throughout the day in ICU; today, December 15, 2017. CCU Objective - Medications Active Medications: Active Medications Generic Name Dose Route Start Last Admin Trade Name Freq PRN Reason Stop Dose Admin Acetaminophen 650 mg 11/27/17 00:56 12/13/17 16:11 Tylenol 650mg/20.3ml Solution Ud PO 650 mg Q6 PRN Administration fever > 100.4 Aspirin 81 mg 11/19/17 09:00 12/15/17 09:42 Aspirin Chewable NG 81 mg DAILY ZIA Administration Atorvastatin Calcium 40 mg 11/17/17 22:00 12/14/17 22:43 Lipitor PO 40 mg HS ZIA Administration Clopidogrel Bisulfate 75 mg 11/18/17 09:45 12/15/17 09:44 Plavix NG 75 mg DAILY ZIA Administration Enoxaparin Sodium 40 mg 11/28/17 09:00 12/15/17 09:43 Lovenox SC 40 mg DAILY ZIA Administration Protocol Famotidine 40 mg 12/02/17 09:00 12/15/17 09:43 Pepcid PO 40 mg DAILY ZIA Administration Folic Acid 1 mg 11/17/17 09:00 12/15/17 09:43 Folic Acid GT 1 mg DAILY ZIA Administration Ciprofloxacin 400 mg in 200 mls @ 200 mls/hr 12/05/17 12:00 12/15/17 09:42 Cipro 400mg/200ml Dsw IVPB 200 mls/hr Q12 [facility]IA Administration Protocol Thiamine HCl 100 mg 12/12/17 09:00 12/15/17 09:44 Vitamin B1 Tab NG 100 mg DAILY [facility]IA Administration
[2017-12-16 04:26] LABS: ABG ALLEN TEST YES; ARTERIAL BLOOD GAS HEMOGLOBIN 9.7 g/dL (11.7-17.4); ARTERIAL BLOOD GAS O2 CAPACITY 13.4 mL/dL (16-24); ARTERIAL BLOOD GAS O2 CONTENT 13.3 ML/dL (15-23); ARTERIAL BLOOD GAS O2 SAT 99.3 % (95-98); ARTERIAL BLOOD GAS PCO2 47 mm/Hg (35-45); ARTERIAL BLOOD GAS PH 7.48 (7.35-7.45); ARTERIAL BLOOD GAS PO2 91 mm/Hg (80-100); ARTERIAL BLOOD GAS TCO2 36.4 mmol/L (22-28)
[2017-12-16 05:13] LABS: HEMOGLOBIN 9.5 g/dL (12.0-18.0); MEAN CELL VOLUME 92.2 fl (80.0-94.0); MEAN CORPUSCULAR HEMOGLOBIN 30.6 pg (27.0-31.0); MEAN CORPUSCULAR HGB CONC 33.2 g/dL (33.0-37.0); RBC 3.11 Mil/uL (4.40-5.90); RED CELL DISTRIBUTION WIDTH 17.1 % (11.5-14.5); WHITE BLOOD COUNT 8.6 K/uL (4.8-10.8)
[2017-12-16 05:40] LABS: BLOOD UREA NITROGEN 23 mg/dl (9-20); CALCIUM 8.4 mg/dL (8.4-10.2); GFR AFRICAN-AMERICAN > 60; GFR NON-AFRICAN AMERICAN > 60
--- NOTE | 2017-12-16 07:55 | RAD ---
PROCEDURE: CHEST RADIOGRAPH, 1 VIEW HISTORY: intubated COMPARISON: Portable chest 12/15/2017. FINDINGS: LUNGS: Endotracheal and nasogastric tubes appear unchanged in position as well as right central venous line. No acute pulmonary disease appreciated bilaterally. PLEURA: No pneumothorax or pleural fluid seen. CARDIOVASCULAR: Cardiac silhouette remains normal in size. No definite pulmonary vascular congestion appreciated at this time. OSSEOUS STRUCTURES: No significant abnormalities. VISUALIZED UPPER ABDOMEN: Normal. OTHER FINDINGS: None. IMPRESSION: No acute infiltrate or pulmonary venous congestion at this time.
--- NOTE | 2017-12-16 08:39 | CP.PCM.PN ---
Subjective - Date & Time of Evaluation Date of Evaluation: 12/16/17 Time of Evaluation: 08:30 - Subjective Subjective: Patient seen and examined bedside. Comatose, intubated on MV PRVC AC mode 14/450 /5/40% n ABG 47/91/33/7.48 No changes neurologically, no gag reflex, sluggish pupillary reflex, no cornea reflex Breathing over the vent. Does not respond to noxious stimuli BP 106/66 HR 83 afebrile last 24 hours WBC 8.6 Hgb 9.5 BUN/Cr 23/0/6 CXR stable , no infiltrates Objective - Vital Signs/Intake and Output Vital Signs (last 24 hours): Temp Pulse Resp BP Pulse Ox 98.2 F 90 14 103/70 100 12/16/17 04:00 12/16/17 05:57 12/16/17 05:57 12/16/17 05:57 12/16/17 05:57 Intake and Output: 12/16/17 12/16/17 06:59 18:59 Intake Total 960 Output Total 500 Balance 460 - Medications Medications: Current Medications Acetaminophen (Tylenol 650mg/20.3ml Solution Ud) 650 mg PO Q6 PRN PRN Reason: fever > 100.4 Last Admin: 12/13/17 16:11 Dose: 650 mg Aspirin (Aspirin Chewable) 81 mg NG DAILY [facility] Last Admin: 12/15/17 09:42 Dose: 81 mg Atorvastatin Calcium (Lipitor) 40 mg PO HS [facility] Last Admin: 12/15/17 21:01 Dose: 40 mg Clopidogrel Bisulfate (Plavix) 75 mg NG DAILY [facility] Last Admin: 12/15/17 09:44 Dose: 75 mg Enoxaparin Sodium (Lovenox) 40 mg SC DAILY [facility] PRN Reason: Protocol Last Admin: 12/15/17 09:43 Dose: 40 mg Famotidine (Pepcid) 40 mg PO DAILY [facility] Last Admin: 12/15/17 09:43 Dose: 40 mg Folic Acid (Folic Acid) 1 mg GT DAILY [facility] Last Admin: 12/15/17 09:43 Dose: 1 mg Ciprofloxacin (Cipro 400mg/200ml Dsw) 400 mg in 200 mls @ 200 mls/hr IVPB Q12 [facility] PRN Reason: Protocol Last Admin: 12/15/17 20:37 Dose: 200 mls/hr Thiamine HCl (Vitamin B1 Tab) 100 mg NG DAILY [facility] Last Admin: 12/15/17 09:44 Dose: 100 mg - Labs Labs: 12/16/17 04:25 12/16/17 04:25 PT 14.1 Seconds (9.8-13.1) H 12/01/17 09:44 INR 1.3 (0.9-1.2) H 12/01/17 09:44 APTT 34.4 Seconds (25.6-37.1) 12/01/17 09:44 - Constitutional Appears: Other (comatose, intubated ) - Head Exam Head Exam: ATRAUMATIC, NORMOCEPHALIC - Eye Exam Additional comments: pupils equal size , sluggish responsive to light - ENT Exam ENT Exam: Mucous Membranes Dry, Normal Exam - Neck Exam Neck Exam: Normal Inspection - Respiratory Exam Respiratory Exam: Clear to Ausculation Bilateral. absent: Wheezes Additional comments: intubated on MV - Cardiovascular Exam Cardiovascular Exam: REGULAR RHYTHM, RRR, +S1, +S2. absent: JVD - GI/Abdominal Exam GI & Abdominal Exam: Soft, Normal Bowel Sounds. absent: Distended, Tenderness, Rebound - Rectal Exam Rectal Exam: Deferred - Extremities Exam Extremities Exam: absent: Pedal Edema - Neurological Exam Additional comments: comatose no gag no cornea reflex sluggish pupillary reflex no response to noxious stimuli - Skin Skin Exam: Dry, Normal Color, Warm Assessment and Plan - Assessment and Plan (Free Text) Assessment: 62y/o White male , initially admitted as Tez White , now identified by Police as Jesus Grayson , unknown PMH was brought by EMS after he was observed by bystanders falling in the street. Patient was lethargic on admission however arousable , noted to have a facial droop and his speech was slurred. 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 He was transferred to ICU and intubated for airway protection. Repeat CT of head showed no change but MRI showed pontine, midbrain, cerebellar hemispheres and thalami infarct. 11/22: With episode of vomiting and possible aspiration became hypotensive, tachycardic, febrile, and hypoxemic Repeat CT head 11/28 showed :Gross edematous changes affect cerebellar hemispheres bilaterally sparing only the inferior margins somewhat and causing compression on the the mid to lower brainstem. The 4th ventricle is partially effaced but no obstructive hydrocephalus appreciated at this time. Edema has extend into the bilateral thalami, right greater than left further indicative of expanding infarction. No intracranial hemorrhage. Ethics Committee meeting recommended Emergency guardianship which is in progress. Given patient's poor prognosis medical team following him has decided that it is appropriate to " not Escalate treatment " and DNR order placed. 1. Acute CVA/ Coma state Patient is comatose , with sluggish pupils, no gag reflex, does not respond to verbal or noxious stimuli, however breathing over the vent ( not brain ) MRI brain showed pontine , midbrain, cerebellar hemispheres and thalamic infarct Repeat CT of head 11/28 showed :Gross edematous changes affect cerebellar hemispheres bilaterally sparing only the inferior margins somewhat and causing compression on the the mid to lower brainstem. The 4th ventricle is partially effaced but no obstructive hydrocephalus appreciated at this time. Edema has extend into the bilateral thalami, right greater than left further indicative of expanding infarction. No intracranial hemorrhage. Poor Prognosis Neurology on consult Continue ASA, Statin, Plavix [employer] network has been notified Ethics Committee met - application for emergency guardianship Given patient's poor prognosis medical team following him has decided a Do not Escalate treatment and DNR order in place. 2. Sepsis due to Aspiration Pneumonia Still orally Intubated since 11/16 ( ET tube changed 12/09) on Vent (PVRC/AC 14/450 /5/40%) BP has improved, off levophed drip , afebrile , WBC trended down procalcitonin was elevated 79 trachea aspirate: positive for Citrobacter and 1 blood cx positive for Staph coag negative ( ? contaminant),. follow up repeat blood cultures On Cipro at present received IV Vanco -now off ID consulted : Dr. Anderson Keep HOB elevated , aspiration, precautions,respiratory toilet with frequent suctioning 3. UTI urine cx positive for Strep viridans completed treatment with Vanco IV for 2 weeks 4. ? Alcoholism unclear if alcoholic, cannot obtain hx however ED note stated that patient has history of ETOH ETOH level low urine Tox : neg Thiamine and FA 5.DVT prophylaxis Acute Lovenox
[2017-12-16] MEDS: Ciprofloxacin 400mg/200ml D5W 400 MG/200 ML BAG IVPB SCH ×2 (09:24→20:55)
[2017-12-16] MEDS: Enoxaparin 40 mg Syringe SC SCH (09:25)
--- NOTE | 2017-12-16 10:04 | CP.CCUPN ---
<Matthieu Duncan - Last Filed: 12/16/17 10:14> CCU Subjective - Physician Review Subjective (Free Text): Patient examined at bedside this AM. Continues unresponsive. Intubated. Current vent settings A/C rate of 14, FIO2 40, Vt 450, PEEP 5. Pupils fixed. No corneal reflex. No gag. No other acute events. CCU Objective - Vital Signs / Intake & Output Vital Signs (Last 4 hours): Vital Signs Temp Pulse Resp BP Pulse Ox 12/16/17 08:00 961 F H 86 14 106/66 100 12/16/17 05:57 90 14 103/70 100 Intake and Output (Last 8hrs): Intake & Output 12/15/17 12/16/17 12/16/17 22:59 06:59 14:59 Intake Total 1224 530 300 Output Total 800 500 Balance 424 30 300 Weight 150 lb Intake: IV 24 0 Intake, Piggyback 200 250 Tube Feeding 900 480 50 Free Water Flush 100 50 Output: Urine 800 500 2-way Urethral 800 500 Other: # Bowel Movements 1 - Physical Exam Head: Positive for: Atraumatic, Normocephalic. Negative for: Ecchymosis, Abrasion, Laceration Pupils: Positive for: Non-Reactive. Negative for: PERRL Extroacular Muscles: Negative for: EOMI Conjunctiva: Positive for: Normal. Negative for: Injected, Icteric Ears: Positive for: Normal Mouth: Positive for: Dry Pharnyx: Negative for: ERYTHEMA, EXUDATE, TONSILS ENLARGED Neck: Positive for: Trachea Midline, Other (R. IJ line). Negative for: JVD, Lymphadenopathy Respiratory/Chest: Positive for: Decreased Breath Sounds. Negative for: Clear to Auscultation ( distant breath sounds b/l), Rales, Retracting, Rhonchi Cardiovascular: Positive for: Regular Rate and Rhythm, Normal S1, S2, Peripheal Pulses Present (faint), Tachycardic. Negative for: Rub, Gallop Abdomen: Positive for: Normal Bowel Sounds. Negative for: Distention, Peritoneal Signs Upper Extremity: Positive for: Capillary Refill < 2s. Negative for: Normal Inspection (Mild B/L hand edema), Cyanosis Lower Extremity: Positive for: Capillary Refill < 2 s. Negative for: Edema, NORMAL PULSES (faint), Swelling, Erythema, Temperature Abnormalties Neurological: Negative for: GCS=15 (GCS: 4T), CN II-XII Intact (comatose), Speech Normal (unable to evaluate ), Motor Func Grossly Intact, Normal Sensory Function, Normal Cerebellar Funct Skin: Positive for: Dry, Cold (extremities ). Negative for: Normal Color ( chronic skin hypopigmented lesion B/L LE), Laceration Lymphatic: Negative for: Cervical Adenopathy Psychiatric: Positive for: Other (comatose). Negative for: Alert, Oriented x 3 - Medications Active Medications: Active Medications Generic Name Dose Route Start Last Admin Trade Name Freq PRN Reason Stop Dose Admin Acetaminophen 650 mg 11/27/17 00:56 12/13/17 16:11 Tylenol 650mg/20.3ml Solution Ud PO 650 mg Q6 PRN Administration fever > 100.4 Aspirin 81 mg 11/19/17 09:00 12/16/17 09:24 Aspirin Chewable NG 81 mg DAILY [facility] Administration Atorvastatin Calcium 40 mg 11/17/17 22:00 12/15/17 21:01 Lipitor PO 40 mg HS [facility]IA Administration Clopidogrel Bisulfate 75 mg 11/18/17 09:45 12/16/17 09:26 Plavix NG 75 mg DAILY [facility] Administration Enoxaparin Sodium 40 mg 11/28/17 09:00 12/16/17 09:25 Lovenox SC 40 mg DAILY [facility] Administration Protocol Famotidine 40 mg 12/02/17 09:00 12/16/17 09:26 Pepcid PO 40 mg DAILY [facility] Administration Folic Acid 1 mg 11/17/17 09:00 12/16/17 09:25 Folic Acid GT 1 mg DAILY [facility] Administration Ciprofloxacin 400 mg in 200 mls @ 200 mls/hr 12/05/17 12:00 12/16/17 09:24 Cipro 400mg/200ml Dsw IVPB 200 mls/hr Q12 [facility]IA Administration Protocol Thiamine HCl 100 mg 12/12/17 09:00 12/16/17 09:26 Vitamin B1 Tab NG 100 mg DAILY [facility] Administration - Patient Studies Lab Studies: Microbiology Studies 12/14/17 04:20 Blood Culture - Preliminary Blood NO GROWTH AFTER 48 HOURS Lab Studies 12/16/17 12/16/17 12/16/17 Range/Units 04:25 04:25 04:00 WBC 8.6 (4.8-10.8) K/uL RBC 3.11 L (4.40-5.90) Mil/uL Hgb 9.5 L (12.0-18.0) g/dL Hct 28.7 L (35.0-51.0) % MCV 92.2 (80.0-94.0) fl MCH 30.6 (27.0-31.0) pg MCHC 33.2 (33.0-37.0) g/dL RDW 17.1 H (11.5-14.5) % Plt Count 355 (130-400) K/uL pCO2 47 H (35-45) mm/Hg pO2 91 (80-100) mm/Hg HCO3 33.0 H (21-28) mmol/L ABG pH 7.48 H (7.35-7.45) ABG Total CO2 36.4 H (22-28) mmol/L ABG O2 Saturation 99.3 H (95-98) % ABG O2 Content 13.3 L (15-23) ML/dL ABG Base Excess 10.3 H (-2.0-3.0) mmol/L ABG Hemoglobin 9.7 L (11.7-17.4) g/dL ABG Carboxyhemoglobin 1.8 H (0.5-1.5) % POC ABG HHb (Measured) 0.7 (0.0-5.0) % ABG Methemoglobin 1.0 (0.0-3.0) % ABG O2 Capacity 13.4 L (16-24) mL/dL Roberto Test Yes A-a O2 Difference 135.0 mm/Hg Hgb O2 Saturation 96.6 (95.0-98.0) % Vent Mode A/c Mechanical Rate 14 FiO2 40.0 % Tidal Volume 450 PEEP 5 Sodium 136 (132-148) mmol/l Potassium 4.0 (3.6-5.0) MMOL/L Chloride 93 L (98-107) mmol/L Carbon Dioxide 38 H (22-30) mmol/L Anion Gap 9 L (10-20) BUN 23 H (9-20) mg/dl Creatinine 0.6 L (0.8-1.5) mg/dl Est GFR ( Amer) > 60 Est GFR (Non-Af Amer) > 60 Random Glucose 111 H (75-110) mg/dL Calcium 8.4 (8.4-10.2) mg/dL Laboratory Results - last 24 hr 12/16/17 12/16/17 12/16/17 04:00 04:25 04:25 WBC 8.6 RBC 3.11 L Hgb 9.5 L Hct 28.7 L MCV 92.2 MCH 30.6 MCHC 33.2 RDW 17.1 H Plt Count 355 pCO2 47 H pO2 91 HCO3 33.0 H ABG pH 7.48 H ABG Total CO2 36.4 H ABG O2 Saturation 99.3 H ABG O2 Content 13.3 L ABG Base Excess 10.3 H ABG Hemoglobin 9.7 L ABG Carboxyhemoglobin 1.8 H POC ABG HHb (Measured) 0.7 ABG Methemoglobin 1.0 ABG O2 Capacity 13.4 L Roberto Test Yes A-a O2 Difference 135.0 Hgb O2 Saturation 96.6 Vent Mode A/c Mechanical Rate 14 FiO2 40.0 Tidal Volume 450 PEEP 5 Sodium 136 Potassium 4.0 Chloride 93 L Carbon Dioxide 38 H Anion Gap 9 L BUN 23 H Creatinine 0.6 L Est GFR ( Amer) > 60 Est GFR (Non-Af Amer) > 60 Random Glucose 111 H Calcium 8.4 Fingerstick Blood Sugar Results: 142 Assessment/Plan - Assessment and Plan (Free Text) Assessment: 63 y/o male, with unobtainable medical history, 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 Smaller cerebellar infarcts b/l -Intubated -GCS 4T -c/w respiratory support and tube feedings -aspirin/plavix as per neuro -atorvastatin 40mg -poor prognosis/Ethic committee review. guardianship pending Acid-base imbalance Stable Likely due to hypoxemia/resp insuficiency C/W Current vent settings Coagulase Negative Staph Bacteremia -Poss contamination -Repeat BCx from 12/14/17 no growth so far -WBC WNL -Afebrile Respiratory Failure secondary CVA -2/2 to Acute CVA -intubated -continues to trigger vent -C/W 14, Vt 450, FIO2 40.0, PEEP 5 -Monitor ABGs Aspiration Pneumonia -Copious secretions -C/W Cipro IV -CXR no acute disease Anemia of Unknown Etiology -Stable -No clinical evidence of acute bleeding -monitor H/H and VS Prophylaxis -Head of bed elevation @ 30 degrees -Pepcid 40 mg daily -Lovenox 40mg SC QD -SCDs Code Status: -DNR <Talib Montejo - Last Filed: 12/16/17 15:26> CCU Subjective - Physician Review Subjective (Free Text): Attestation: Patient seen and examined at the bedside with Resident Dr. Jayson Duncan; and I agree with his outline of plans and management documented below as discussed on AM rounds reflecting my review of all applicable clinical data, and participation in the care of the patient throughout the day in ICU; today, December 16, 2017.
[2017-12-17 04:28] LABS: ABG ALLEN TEST YES; ARTERIAL BLOOD GAS HCO3 37.2 mmol/L (21-28); ARTERIAL BLOOD GAS HEMOGLOBIN 8.6 g/dL (11.7-17.4); ARTERIAL BLOOD GAS O2 CAPACITY 11.9 mL/dL (16-24); ARTERIAL BLOOD GAS O2 CONTENT 11.8 ML/dL (15-23); ARTERIAL BLOOD GAS O2 SAT 99.1 % (95-98); ARTERIAL BLOOD GAS PCO2 52 mm/Hg (35-45); ARTERIAL BLOOD GAS PO2 90 mm/Hg (80-100); ARTERIAL BLOOD GAS TCO2 42.2 mmol/L (22-28)
[2017-12-17 06:22] LABS: HEMOGLOBIN 8.2 g/dL (12.0-18.0); MEAN CELL VOLUME 92.3 fl (80.0-94.0); MEAN CORPUSCULAR HGB CONC 33.6 g/dL (33.0-37.0); RBC 2.66 Mil/uL (4.40-5.90); RED CELL DISTRIBUTION WIDTH 17.6 % (11.5-14.5); WHITE BLOOD COUNT 8.4 K/uL (4.8-10.8)
[2017-12-17 06:34] LABS: BLOOD UREA NITROGEN 22 mg/dl (9-20); CALCIUM 8.1 mg/dL (8.4-10.2); GFR AFRICAN-AMERICAN > 60; GFR NON-AFRICAN AMERICAN > 60
--- NOTE | 2017-12-17 06:39 | CP.CCUPN ---
CCU Subjective - Physician Review Subjective (Free Text): Overall neuromental status unchanged with deep coma, moves left shoulder in response to deep pain stimulus, breathing 16 on AC 14. Other hemodynamics have been stable. Other vitals and I/O's reviewed. T max 100.7 over last 24H. ROS: No other pertinent negs or positives on 10+ system review obtainable due to comatose date. PMSFH: Unknown relative to current disease state. All other Nursing and physician documentation reviewed to date; no new pertinent info noted relevant to current medical problems. EXAM- HEENT: no icterus, no gaze preference, pupils 3mm and NR, midline, has slight eye twitching on cornela reflex testing. +light cough on ETT suctioning. NECK: No JVD, supple, carotids equal upstroke bilat/no bruits CHEST: decreased BS bases, no wheezes audible HEART: regular, distant, S1S2, no rubs or murmurs ABD: soft, no distention, no tympany, no palp tenderness, BS hypoactive EXT: No peripheral/ digital cyanosis, no calf tenderness or palpable cords, distal pulses intact and symmetrical. NEURO: flaccid x4 extremities SKIN: no rashes, warm and dry. LABS: ABG 7.50/52/90 WBC= 8.4 HGB= 8.2 PLTs= 314K Cq=275 K= 3.6 CL=92 HCO3= 36 BUN/Cr= 22/0.6 BS= 104 CXR from 12/16 reviewed: ETT position Ok above haresh, no new consolidation, awaiting todays film ( my interp). IMPRESSION / MAJOR PROBLEMS NOW: 1. Multi-CVA involving Genie, thalamic nuclei, and cerebellum (as first dxed only on Brain MRI on 11/17) 2. Acute Resp Failure 2 #1 3. Accelerated HTN 2 CVA 4. s/p S. viridans UTI 5. Possible h/o ETOH Abuse suspected PLAN: 1. Stable, non-deteriorating neurologic status, and with brain stem reflexes. 1. Latest CT Brain done 11/28: reviewed- Infarct extension and extensive edema noted. Hypertonic saline therapy initiated at that time. Repeat brain imaging as per Neurology. 2. Now, 6 weeks into present course on MV support. Standard of care would now be considered an appropriate time for tracheostomy; though it is not considered an emergent /urgent procedure. Otherwise, no MV weans feasible given inability to self-protect airway. Awaiting Guardianship to determine further directives regarding tracheostomy versus continued present supportive mgmt.. 3. No spiking fevers beyond present occasional low grade temps, and repeat blood cultures from 12/14/ have been negative. Remains on Cipro. Last TLC line change was done 11/24. Could consider discontinuing antibiotics or get Procalcitonin level. CCU Objective - Vital Signs / Intake & Output Vital Signs (Last 4 hours): Vital Signs Temp Pulse Resp BP Pulse Ox 12/17/17 06:00 97.9 F 85 16 100/65 100 12/17/17 04:00 98.7 F 90 17 118/73 100 Intake and Output (Last 8hrs): Intake & Output 12/16/17 12/16/17 12/17/17 14:59 22:59 06:59 Intake Total 300 1214 496 Output Total 700 500 Balance 300 514 -4 Weight 150 lb 139 lb 9.6 oz Intake: IV 14 16 Intake, Piggyback 250 200 Tube Feeding 50 900 480 Free Water Flush 100 Output: Urine 700 500 2-way Urethral 700 500 - Physical Exam Pupils: Negative for: PERRL
[2017-12-17] MEDS: Ciprofloxacin 400mg/200ml D5W 400 MG/200 ML BAG IVPB SCH ×2 (08:02→20:27)
[2017-12-17] MEDS: Enoxaparin 40 mg Syringe SC SCH (08:03)
--- NOTE | 2017-12-17 09:13 | CP.PCM.PN ---
Subjective - Date & Time of Evaluation Date of Evaluation: 12/17/17 Time of Evaluation: 08:30 - Subjective Subjective: Feb[facility] yesterday [facility]40% Responds to deep pain however pupils nonreactive, breaths over Vent awaiting Guardianship - application in progress Tolerating Tube feeding Objective - Vital Signs/Intake and Output Vital Signs (last 24 hours): Temp Pulse Resp BP Pulse Ox 98.0 F 87 14 119/73 100 12/17/17 08:00 12/17/17 08:00 12/17/17 08:00 12/17/17 08:00 12/17/17 08:00 Intake and Output: 12/17/17 12/17/17 06:59 18:59 Intake Total 928 124 Output Total 500 Balance 428 124 - Medications Medications: Current Medications Acetaminophen (Tylenol 650mg/20.3ml Solution Ud) 650 mg PO Q6 PRN PRN Reason: fever > 100.4 Last Admin: 12/13/17 16:11 Dose: 650 mg Aspirin (Aspirin Chewable) 81 mg NG DAILY [facility] Last Admin: 12/17/17 08:02 Dose: 81 mg Atorvastatin Calcium (Lipitor) 40 mg PO HS [facility] Last Admin: 12/16/17 21:00 Dose: 40 mg Clopidogrel Bisulfate (Plavix) 75 mg NG DAILY [facility] Last Admin: 12/17/17 08:03 Dose: 75 mg Enoxaparin Sodium (Lovenox) 40 mg SC DAILY [facility] PRN Reason: Protocol Last Admin: 12/17/17 08:03 Dose: 40 mg Famotidine (Pepcid) 40 mg PO DAILY [facility] Last Admin: 12/17/17 08:03 Dose: 40 mg Folic Acid (Folic Acid) 1 mg GT DAILY [facility] Last Admin: 12/17/17 08:03 Dose: 1 mg Ciprofloxacin (Cipro 400mg/200ml Dsw) 400 mg in 200 mls @ 200 mls/hr IVPB Q12 [facility]IA PRN Reason: Protocol Last Admin: 12/17/17 08:02 Dose: 200 mls/hr Thiamine HCl (Vitamin B1 Tab) 100 mg NG DAILY [facility] Last Admin: 12/17/17 08:03 Dose: 100 mg - Labs Labs: 12/17/17 05:30 12/17/17 05:30 PT 14.1 Seconds (9.8-13.1) H 05/24/18 09:44 INR 1.3 (0.9-1.2) H 12/01/17 09:44 APTT 34.4 Seconds (25.6-37.1) 12/01/17 09:44 - Constitutional Appears: chronically ill, Intubated on Vent (PVRC/AC 40% FiO2) - Head Exam Head Exam: NORMAL INSPECTION, NORMOCEPHALIC - Eye Exam Eye Exam: Pupil Exam: Fixed, 4mm, not reactive to light - ENT Exam ENT Exam: Mucous Membranes Dry, Normal External Ear Exam - Neck Exam Neck Exam: absent: Meningismus - Respiratory Exam Respiratory Exam: Rhonchi, coarse rales Additional comments: Intubated on Vent - Cardiovascular Exam Cardiovascular Exam: REGULAR RHYTHM, +S1, +S2 - GI/Abdominal Exam GI & Abdominal Exam: Soft, Normal Bowel Sounds OGT in place - Extremities Exam Extremities Exam: Pedal Edema, edematous upper ext - Neurological Exam Additional comments: responds to deep pain by sl movement fixed pupils no gag reflex breathes over the Vent Assessment and Plan (1) Acute CVA (cerebrovascular accident) Status: Acute (2) Altered mental status Status: Acute (3) Slurring of speech Status: Acute (4) HTN (hypertension) Status: Chronic (5) Acute metabolic encephalopathy Status: Acute (6) Acute respiratory insufficiency Status: Acute (7) DVT prophylaxis Status: Acute - Assessment and Plan (Free Text) Assessment: 62y/o White male , initially admitted as Tez White , now identified by Police as Jesus Grayson , unknown PMH was brought by EMS after he was observed by bystanders falling in the street. Patient was lethargic on admission however arousable , noted to have a facial droop and his speech was slurred. 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 He was transferred to ICU and intubated for airway protection. Repeat CT of head showed no change but MRI showed pontine, midbrain, cerebellar hemispheres and thalami infarct. 11/22: With episode of vomiting and possible aspiration became hypotensive, tachycardic, febrile, and hypoxemic Repeat CT head 11/28 showed :Gross edematous changes affect cerebellar hemispheres bilaterally sparing only the inferior margins somewhat and causing compression on the the mid to lower brainstem. The 4th ventricle is partially effaced but no obstructive hydrocephalus appreciated at this time. Edema has extend into the bilateral thalami, right greater than left further indicative of expanding infarction. No intracranial hemorrhage. Ethics Committee meeting recommended Emergency guardianship which is in progress. Given patient's poor prognosis medical team following him has decided that it is appropriate to " not Escalate treatment " and DNR order placed. 1. Acute CVA/ Coma state Patient is comatose , with sluggish pupils, no gag reflex, does not respond to verbal or noxious stimuli, however breathing over the vent ( not brain ) MRI brain showed pontine , midbrain, cerebellar hemispheres and thalamic infarct Repeat CT of head 11/28 showed :Gross edematous changes affect cerebellar hemispheres bilaterally sparing only the inferior margins somewhat and causing compression on the the mid to lower brainstem. The 4th ventricle is partially effaced but no obstructive hydrocephalus appreciated at this time. Edema has extend into the bilateral thalami, right greater than left further indicative of expanding infarction. No intracranial hemorrhage. Poor Prognosis Neurology on consult Continue ASA, Statin, Plavix Sharing network has been notified Ethics Committee met - application for emergency guardianship Given patient's poor prognosis medical team following him has decided a Do not Escalate treatment and DNR order in place. 2. Sepsis due to Aspiration Pneumonia Still orally Intubated since 11/16 ( ET tube changed 12/09) on Vent (PVRC/AC 14/450 /5/40%) BP has improved, off levophed drip , afebrile , WBC trended down procalcitonin was elevated 79 trachea aspirate: positive for Citrobacter and 1 blood cx positive for Staph coag negative ( ? contaminant),repeat blood cultures negative On Cipro at present received IV Vanco -now off ID consulted : Dr. Anderson Keep HOB elevated , aspiration, precautions,respiratory toilet with frequent suctioning 3. UTI urine cx positive for Strep viridans - completed treatment with Vanco IV for 2 weeks 4. ? Alcoholism unclear if alcoholic, cannot obtain hx however ED note stated that patient has history of ETOH ETOH level low urine Tox : neg Thiamine and FA 5.DVT prophylaxis Acute Lovenox
--- NOTE | 2017-12-17 10:43 | RAD ---
PROCEDURE: CHEST RADIOGRAPH, 1 VIEW HISTORY: intubated COMPARISON: Frontal chest radiograph 12/16/2017. FINDINGS: LUNGS: Right central venous line unchanged in position. Endotracheal and nasogastric tubes also stable in position. Borderline patchy density right base medially. Remaining lung peres are clear. PLEURA: No pneumothorax or pleural fluid seen. CARDIOVASCULAR: Normal. OSSEOUS STRUCTURES: No significant abnormalities. VISUALIZED UPPER ABDOMEN: Normal. OTHER FINDINGS: None. IMPRESSION: Borderline patchy atelectasis or infiltrate medial right base with remaining lung peres clear.
[2017-12-18 06:57] LABS: BASO # 0.1 K/uL (0.0-0.2); BASO % 1.1 % (0.0-2.0); EOS # 0.3 K/uL (0.0-0.7); EOS % 4.6 % (0.0-4.0); HEMOGLOBIN 8.3 g/dL (12.0-18.0); LYMPH # 1.3 K/uL (1.0-4.3); MEAN CELL VOLUME 92.8 fl (80.0-94.0); MEAN CORPUSCULAR HEMOGLOBIN 30.2 pg (27.0-31.0); MEAN CORPUSCULAR HGB CONC 32.6 g/dL (33.0-37.0); MEAN PLATELET VOLUME 8.1 fl (7.2-11.7); MONO # 0.7 K/uL (0.0-0.8); MONO % 12.7 % (0.0-10.0); NEUT # 3.2 K/uL (1.8-7.0); NEUT % 57.6 % (50.0-75.0); RBC 2.74 Mil/uL (4.40-5.90); RED CELL DISTRIBUTION WIDTH 17.9 % (11.5-14.5); WHITE BLOOD COUNT 5.6 K/uL (4.8-10.8)
[2017-12-18 07:01] LABS: BLOOD UREA NITROGEN 19 mg/dl (9-20); CALCIUM 8.1 mg/dL (8.4-10.2); GFR AFRICAN-AMERICAN > 60; GFR NON-AFRICAN AMERICAN > 60
[2017-12-18] MEDS: Ferrous Sulfate 300 mg/5 mL Liq UD PO SCH (08:57)
[2017-12-18] MEDS: Enoxaparin 40 mg Syringe SC SCH (08:58)
[2017-12-18] MEDS: Ciprofloxacin 400mg/200ml D5W 400 MG/200 ML BAG IVPB SCH ×2 (08:58→20:04)
--- NOTE | 2017-12-18 10:28 | CP.PCM.PN ---
Subjective - Date & Time of Evaluation Date of Evaluation: 12/18/17 Time of Evaluation: 08:30 - Subjective Subjective: Afebrile today [facility] 14/450/5/40% Responds to deep pain however pupils nonreactive Breaths over Vent awaiting Guardianship - application in progress Tolerating Tube feeding Objective - Vital Signs/Intake and Output Vital Signs (last 24 hours): Temp Pulse Resp BP Pulse Ox 98.5 F 81 14 111/66 100 12/18/17 08:00 12/18/17 08:00 12/18/17 08:00 12/18/17 08:00 12/18/17 08:00 Intake and Output: 12/18/17 12/18/17 06:59 18:59 Intake Total 934 60 Output Total 600 Balance 334 60 - Medications Medications: Current Medications Acetaminophen (Tylenol 650mg/20.3ml Solution Ud) 650 mg PO Q6 PRN PRN Reason: fever > 100.4 Last Admin: 12/13/17 16:11 Dose: 650 mg Aspirin (Aspirin Chewable) 81 mg NG DAILY [facility] Last Admin: 12/18/17 08:57 Dose: 81 mg Atorvastatin Calcium (Lipitor) 40 mg PO HS [facility] Last Admin: 12/17/17 22:23 Dose: 40 mg Clopidogrel Bisulfate (Plavix) 75 mg NG DAILY [facility] Last Admin: 12/18/17 08:57 Dose: 75 mg Enoxaparin Sodium (Lovenox) 40 mg SC DAILY [facility] PRN Reason: Protocol Last Admin: 12/18/17 08:58 Dose: 40 mg Famotidine (Pepcid) 40 mg PO DAILY [facility] Last Admin: 12/18/17 09:00 Dose: 40 mg Ferrous Sulfate (Feosol Liq) 300 mg PO DAILY [facility] Last Admin: 12/18/17 08:57 Dose: 300 mg Folic Acid (Folic Acid) 1 mg GT DAILY [facility] Last Admin: 12/18/17 08:58 Dose: 1 mg Ciprofloxacin (Cipro 400mg/200ml Dsw) 400 mg in 200 mls @ 200 mls/hr IVPB Q12 [facility] PRN Reason: Protocol Last Admin: 12/18/17 08:58 Dose: 200 mls/hr Thiamine HCl (Vitamin B1 Tab) 100 mg NG DAILY [facility] Last Admin: 12/18/17 08:57 Dose: 100 mg - Labs Labs: 12/18/17 05:30 12/18/17 05:30 PT 14.1 Seconds (9.8-13.1) H 12/01/17 09:44 INR 1.3 (0.9-1.2) H 12/01/17 09:44 APTT 34.4 Seconds (25.6-37.1) 12/01/17 09:44 - Constitutional Appears: chronically ill, Intubated on Vent (PVRC/AC 40% FiO2) - Head Exam Head Exam: NORMAL INSPECTION, NORMOCEPHALIC - Eye Exam Eye Exam: Pupil Exam: Fixed, 4mm, not reactive to light - ENT Exam ENT Exam: Mucous Membranes Dry, Normal External Ear Exam - Neck Exam Neck Exam: absent: Meningismus - Respiratory Exam Respiratory Exam: Rhonchi, coarse rales Additional comments: Intubated on Vent - Cardiovascular Exam Cardiovascular Exam: REGULAR RHYTHM, +S1, +S2 - GI/Abdominal Exam GI & Abdominal Exam: Soft, Normal Bowel Sounds OGT in place - Extremities Exam Extremities Exam: Pedal Edema, edematous upper ext - Neurological Exam Additional comments: responds to deep pain by sl movement fixed pupils no gag reflex breathes over the Vent Assessment and Plan (1) Acute CVA (cerebrovascular accident) Status: Acute (2) Altered mental status Status: Acute (3) Slurring of speech Status: Acute (4) HTN (hypertension) Status: Chronic (5) Acute metabolic encephalopathy Status: Acute (6) Acute respiratory insufficiency Status: Acute (7) DVT prophylaxis Status: Acute - Assessment and Plan (Free Text) Assessment: 62y/o White male , initially admitted as Tez White , now identified by Police as Jesus Grayson , unknown PMH was brought by EMS after he was observed by bystanders falling in the street. Patient was lethargic on admission however arousable , noted to have a facial droop and his speech was slurred. 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 He was transferred to ICU and intubated for airway protection. Repeat CT of head showed no change but MRI showed pontine, midbrain, cerebellar hemispheres and thalami infarct. 11/22: With episode of vomiting and possible aspiration became hypotensive, tachycardic, febrile, and hypoxemic Repeat CT head 11/28 showed :Gross edematous changes affect cerebellar hemispheres bilaterally sparing only the inferior margins somewhat and causing compression on the the mid to lower brainstem. The 4th ventricle is partially effaced but no obstructive hydrocephalus appreciated at this time. Edema has extend into the bilateral thalami, right greater than left further indicative of expanding infarction. No intracranial hemorrhage. Ethics Committee meeting recommended Emergency guardianship which is in progress. Given patient's poor prognosis medical team following him has decided that it is appropriate to " not Escalate treatment " and DNR order placed. 1. Acute CVA/ Coma state Patient is comatose , with sluggish pupils, no gag reflex, does not respond to verbal or noxious stimuli, however breathing over the vent ( not brain ) MRI brain showed pontine , midbrain, cerebellar hemispheres and thalamic infarct Repeat CT of head 11/28 showed :Gross edematous changes affect cerebellar hemispheres bilaterally sparing only the inferior margins somewhat and causing compression on the the mid to lower brainstem. The 4th ventricle is partially effaced but no obstructive hydrocephalus appreciated at this time. Edema has extend into the bilateral thalami, right greater than left further indicative of expanding infarction. No intracranial hemorrhage. Poor Prognosis Neurology on consult Continue ASA, Statin, Plavix Sharing network has been notified Ethics Committee met - application for emergency guardianship Given patient's poor prognosis medical team following him has decided a Do not Escalate treatment and DNR order in place. 2. Sepsis due to Aspiration Pneumonia Still orally Intubated since 11/16 ( ET tube changed 12/09) on Vent (PVRC/AC 14/450 /5/40%) BP has improved, off levophed drip , afebrile , WBC trended down procalcitonin was elevated 79 trachea aspirate: positive for Citrobacter and 1 blood cx positive for Staph coag negative ( ? contaminant),repeat blood cultures negative On Cipro at present received IV Vanco -now off ID consulted : Dr. Anderson Keep HOB elevated , aspiration, precautions,respiratory toilet with frequent suctioning 3. UTI urine cx positive for Strep viridans - completed treatment with Vanco IV for 2 weeks 4. ? Alcoholism unclear if alcoholic, cannot obtain hx however ED note stated that patient has history of ETOH ETOH level low urine Tox : neg Thiamine and FA 5.DVT prophylaxis Acute Lovenox
[2017-12-19 05:49] LABS: ABG ALLEN TEST YES; ARTERIAL BLOOD GAS HCO3 35.5 mmol/L (21-28); ARTERIAL BLOOD GAS HEMOGLOBIN 9.2 g/dL (11.7-17.4); ARTERIAL BLOOD GAS O2 CAPACITY 12.7 mL/dL (16-24); ARTERIAL BLOOD GAS O2 CONTENT 12.7 ML/dL (15-23); ARTERIAL BLOOD GAS O2 SAT 99.7 % (95-98); ARTERIAL BLOOD GAS PCO2 49 mm/Hg (35-45); ARTERIAL BLOOD GAS PO2 103 mm/Hg (80-100); ARTERIAL BLOOD GAS TCO2 39.7 mmol/L (22-28)
[2017-12-19 05:59] LABS: HEMOGLOBIN 8.7 g/dL (12.0-18.0); MEAN CELL VOLUME 92.4 fl (80.0-94.0); MEAN CORPUSCULAR HEMOGLOBIN 30.9 pg (27.0-31.0); MEAN CORPUSCULAR HGB CONC 33.4 g/dL (33.0-37.0); RBC 2.81 Mil/uL (4.40-5.90); RED CELL DISTRIBUTION WIDTH 17.7 % (11.5-14.5); WHITE BLOOD COUNT 5.6 K/uL (4.8-10.8)
[2017-12-19 06:07] LABS: BLOOD UREA NITROGEN 17 mg/dl (9-20); CALCIUM 8.2 mg/dL (8.4-10.2); GFR AFRICAN-AMERICAN > 60; GFR NON-AFRICAN AMERICAN > 60
--- NOTE | 2017-12-19 07:53 | CP.CCUPN ---
CCU Subjective - Physician Review Subjective (Free Text): 12/19/17 12:26 The patient was Seen and examined by me at the bedside during ICU round, Medical records reviewed and Management issues were discussed and formulated with the house staff. Events reviewed Pt remains orally intubated and mechanically ventilated. PRVC AC12 TV450 FiO2 40 % PEEP5. Remains Afebrile, Currently on antibiotics with IV Vanco and Cipro BP stable. NSR on the monitor Comatosed, no improvement of mental status, unresponsive to painful stimuli. Pupils remain fixed and dilated, No corneal reflex or Gag reflex identified. intact. Patient breathing over the vent. Tolerating tube feeding. Pt off antibiotics, completed a course of Vanco and Zosyn 12/02; Sputum C/S positive Citrobacter Diversus 12/05; Urine C/S no growth (11/16: Urine C/S positive for gram positive Cocci ( Strep viridans ) 12/05; Blood C/S with no growth 12/05; Blood C/S Pos Coagulase negative Staph Last 24H I&O 1900/1575 This morning labs revealed No Leucocytosis 16.6, Stable renal function. CCU Objective - Vital Signs / Intake & Output Vital Signs (Last 4 hours): Vital Signs Pulse Resp BP Pulse Ox 12/19/17 06:00 92 H 14 139/81 100 12/19/17 04:00 90 14 137/79 100 Intake and Output (Last 8hrs): Intake & Output 12/18/17 12/19/17 12/19/17 22:59 06:59 14:59 Intake Total 770 500 Output Total 575 1000 Balance 195 -500 Weight 138 lb 3.2 oz Intake: IV 10 20 Intake, Piggyback 200 Tube Feeding 460 480 Free Water Flush 100 Output: Gastric Amount 0 Stomach 0 Urine 575 1000 2-way Urethral 575 1000 Other: # Bowel Movements 0 - Physical Exam Head: Positive for: Atraumatic, Normocephalic. Negative for: Ecchymosis, Abrasion, Laceration Pupils: Negative for: PERRL Extroacular Muscles: Negative for: EOMI Conjunctiva: Positive for: Normal. Negative for: Injected, Icteric Ears: Positive for: Normal Mouth: Positive for: Dry Pharnyx: Negative for: ERYTHEMA, EXUDATE, TONSILS ENLARGED Neck: Positive for: Trachea Midline, Other (R. IJ line). Negative for: JVD, Lymphadenopathy Respiratory/Chest: Positive for: Decreased Breath Sounds. Negative for: Clear to Auscultation ( distant breath sounds b/l), Rales, Retracting, Rhonchi Cardiovascular: Positive for: Regular Rate and Rhythm, Normal S1, S2, Peripheal Pulses Present (faint), Tachycardic. Negative for: Rub, Gallop Abdomen: Positive for: Normal Bowel Sounds. Negative for: Distention, Peritoneal Signs Upper Extremity: Positive for: Capillary Refill < 2s. Negative for: Normal Inspection (Mild B/L hand edema), Cyanosis Lower Extremity: Positive for: Capillary Refill < 2 s. Negative for: Edema, NORMAL PULSES (faint), Swelling, Erythema, Temperature Abnormalties Neurological: Negative for: GCS=15 (GCS: 4T), CN II-XII Intact (comatose), Speech Normal (unable to evaluate ), Motor Func Grossly Intact, Normal Sensory Function, Normal Cerebellar Funct Skin: Positive for: Dry, Cold (extremities ). Negative for: Normal Color ( chronic skin hypopigmented lesion B/L LE), Laceration Lymphatic: Negative for: Cervical Adenopathy Psychiatric: Positive for: Other (comatose). Negative for: Alert, Oriented x 3 - Medications Active Medications: Active Medications Generic Name Dose Route Start Last Admin Trade Name Freq PRN Reason Stop Dose Admin Acetaminophen 650 mg 11/27/17 00:56 12/13/17 16:11 Tylenol 650mg/20.3ml Solution Ud PO 650 mg Q6 PRN Administration fever > 100.4 Aspirin 81 mg 11/19/17 09:00 12/18/17 08:57 Aspirin Chewable NG 81 mg DAILY [facility] Administration Atorvastatin Calcium 40 mg 11/17/17 22:00 12/18/17 21:09 Lipitor PO 40 mg HS [facility] Administration Clopidogrel Bisulfate 75 mg 11/18/17 09:45 12/18/17 08:57 Plavix NG 75 mg DAILY [facility] Administration Enoxaparin Sodium 40 mg 11/28/17 09:00 12/18/17 08:58 Lovenox SC 40 mg DAILY [facility] Administration Protocol Famotidine 40 mg 12/02/17 09:00 12/18/17 09:00 Pepcid PO 40 mg DAILY [facility] Administration Ferrous Sulfate 300 mg 12/18/17 09:00 12/18/17 08:57 Feosol Liq PO 300 mg DAILY [facility] Administration Folic Acid 1 mg 11/17/17 09:00 12/18/17 08:58 Folic Acid GT 1 mg DAILY [facility] Administration Ciprofloxacin 400 mg in 200 mls @ 200 mls/hr 12/05/17 12:00 12/18/17 20:04 Cipro 400mg/200ml Dsw IVPB 200 mls/hr Q12 [facility] Administration Protocol Thiamine HCl 100 mg 12/12/17 09:00 12/18/17 08:57 Vitamin B1 Tab NG 100 mg DAILY [facility] Administration - Patient Studies Lab Studies: Microbiology Studies 12/14/17 04:20 Blood Culture - Final Blood NO GROWTH AFTER 5 DAYS Gram Stain - Final TEST NOT PERFORMED Lab Studies 12/19/17 12/19/17 12/19/17 Range/Units 04:49 04:20 04:20 WBC 5.6 (4.8-10.8) K/uL RBC 2.81 L (4.40-5.90) Mil/uL Hgb 8.7 L (12.0-18.0) g/dL Hct 26.0 L (35.0-51.0) % MCV 92.4 (80.0-94.0) fl MCH 30.9 (27.0-31.0) pg MCHC 33.4 (33.0-37.0) g/dL RDW 17.7 H (11.5-14.5) % Plt Count 331 (130-400) K/uL pCO2 49 H (35-45) mm/Hg pO2 103 H (80-100) mm/Hg HCO3 35.5 H (21-28) mmol/L ABG pH 7.50 H (7.35-7.45) ABG Total CO2 39.7 H (22-28) mmol/L ABG O2 Saturation 99.7 H (95-98) % ABG O2 Content 12.7 L (15-23) ML/dL ABG Base Excess 13.5 H (-2.0-3.0) mmol/L ABG Hemoglobin 9.2 L (11.7-17.4) g/dL ABG Carboxyhemoglobin 1.6 H (0.5-1.5) % POC ABG HHb (Measured) 0.3 (0.0-5.0) % ABG Methemoglobin 1.1 (0.0-3.0) % ABG O2 Capacity 12.7 L (16-24) mL/dL Roberto Test Yes A-a O2 Difference 121.0 mm/Hg Hgb O2 Saturation 97.0 (95.0-98.0) % Vent Mode Prvc ac Mechanical Rate 14 FiO2 40.0 % Tidal Volume 500 PEEP 5 Sodium 136 (132-148) mmol/l Potassium 3.9 (3.6-5.0) MMOL/L Chloride 93 L (98-107) mmol/L Carbon Dioxide 38 H (22-30) mmol/L Anion Gap 9 L (10-20) BUN 17 (9-20) mg/dl Creatinine 0.5 L (0.8-1.5) mg/dl Est GFR ( Amer) > 60 Est GFR (Non-Af Amer) > 60 Random Glucose 100 (75-110) mg/dL Calcium 8.2 L (8.4-10.2) mg/dL Laboratory Results - last 24 hr 12/19/17 12/19/17 12/19/17 04:20 04:20 04:49 WBC 5.6 RBC 2.81 L Hgb 8.7 L Hct 26.0 L MCV 92.4 MCH 30.9 MCHC 33.4 RDW 17.7 H Plt Count 331 pCO2 49 H pO2 103 H HCO3 35.5 H ABG pH 7.50 H ABG Total CO2 39.7 H ABG O2 Saturation 99.7 H ABG O2 Content 12.7 L ABG Base Excess 13.5 H ABG Hemoglobin 9.2 L ABG Carboxyhemoglobin 1.6 H POC ABG HHb (Measured) 0.3 ABG Methemoglobin 1.1 ABG O2 Capacity 12.7 L Roberto Test Yes A-a O2 Difference 121.0 Hgb O2 Saturation 97.0 Vent Mode Prvc ac Mechanical Rate 14 FiO2 40.0 Tidal Volume 500 PEEP 5 Sodium 136 Potassium 3.9 Chloride 93 L Carbon Dioxide 38 H Anion Gap 9 L BUN 17 Creatinine 0.5 L Est GFR ( Amer) > 60 Est GFR (Non-Af Amer) > 60 Random Glucose 100 Calcium 8.2 L Fingerstick Blood Sugar Results: 142 Assessment/Plan (1) Acute respiratory insufficiency Current Visit: Yes Status: Acute Comment: Patient intubated for airway protection, due to Altered Level of consciousness Not a candidate for Vent weaning dur to poor mental status Aggressive pulmonary toilet Maintain aspiration precautions (2) Ischemic stroke Current Visit: Yes Status: Acute Comment: 11/21/2017: CT HEAD WITHOUT CONTRAST. IMPRESSION: Evolution of brain infarction is identified partially obscured at the brainstem and more obvious at the bilateral cerebral peduncle as well as small foci at both cerebellar hemispheres as discussed above. No intracranial hemorrhage or significant mass appreciable this at this time. Reiteration of age related neuro degenerative changes. (3) Severe sepsis Current Visit: Yes Status: Acute Priority: High Comment: Continue current antibiotics with IV Cipro Pt completed a course of Vanco and Zosyn for 2 weeks 12/02; Sputum C/S positive Citrobacter Diversus 12/05; Urine C/S no growth (11/16: Urine C/S positive for gram positive Cocci ) 12/05; Blood C/S with no growth Last 24H I&O 2864/2300 This morning labs revealed No Leucocytosis, Stable renal function. (4) Acute metabolic encephalopathy Current Visit: Yes Status: Acute Priority: High Comment: Pt Comatosed, no improvement of mental status
--- NOTE | 2017-12-19 08:37 | PN ---
DATE: 12/18/2017 CRITICAL CARE PROGRESS NOTE LOCATION: The patient in ICU, bed 435. TIME SPENT: 25 minutes. SUBJECTIVE: The patient is seen and evaluated at the bedside. Past medical, surgical, family, and social history noted. Events since admission reviewed. Overnight, remains comatose on ventilator. AC/PRBC rate 1 4. Observed rate 14 Exhaled set tidal volume of 400,observed tidal volume 440, minute ventilation 6 liters ,on FiO2 of 40, saturating 100%, peak airway pressure 18, end-tidal CO2 of 30. No sedation. Remains unresponsive to verbal commands. Minimal response to painful stimuli. PHYSICAL EXAMINATION: HEAD, EYES, EARS, NOSE AND THROAT: Pupils 3 to 4 mm, nonreactive. No corneal or conjunctival reflex. No gag reflex. VITAL SIGNS: Temperature 97.7, heart rate 86, blood pressure 135/81, saturation 100%. Intake 1824, output 1200, positive 624. Weight 138 pounds. CHEST: Bilateral breath sounds diminished intensity. HEART: Rhythm regular. No audible murmur. ABDOMEN: Bowel sounds present. Soft. EXTREMITIES: Trace edema. NEUROLOGIC: Comatose. CURRENT MEDICATIONS: Tylenol 650 every 6 hours p.r.n., aspirin 81 mg daily, Lipitor 40 mg daily, ciprofloxacin 400 mg twice daily, Plavix 75 mg daily, Lovenox 40 subcutaneous daily, Pepcid 40 daily, ferrous sulphate 300 mg daily, folic acid 1 mg daily, vitamin B 100 mg daily. LABORATORY DATA: WBC 5.6, hemoglobin 8.3, hematocrit 25.4, platelet count 321, neutrophils 57.6, lymphocytes 24, monocytes 12.7. PT 14.1, INR 1.3, PTT 34.4. ABG; pH of 7.5, pCO2 of 52, pO2 of 90, saturation 99.1. SMA-7; sodium 137, potassium 3.9, chloride 92, CO2 of 35, BUN 19, creatinine 0.5, calcium 8.1. Urinalysis; rbc 18, wbc 2. Toxicology screen, negative. Serology; HIV-1 and HIV-2 negative. IMPRESSION: 1. Status post multiple cerebrovascular accident involving keshia thalamic and cerebellum. Remains comatose. On ventilator secondary to acute respiratory failure. 2. Accelerated hypertension secondary to cerebrovascular accident, status post Streptococcus viridans urinary tract infections. Suspected EtOH abuse. The patient's prognosis remains guarded. Need tracheostomy and PEG insertion. Awaiting for retirement care and for consent for the procedure. Prognosis poor. Raul Finn MD MTDTeri
--- NOTE | 2017-12-19 08:56 | RAD ---
HISTORY: vented COMPARISON: Portable chest 12/17/2017. FINDINGS: Endotracheal and nasogastric tubes appear unchanged in position as well as right central venous line. LUNGS: No active pulmonary disease. PLEURA: No significant pleural effusion identified, no pneumothorax apparent. CARDIOVASCULAR: Normal. OSSEOUS STRUCTURES: No significant abnormalities. VISUALIZED UPPER ABDOMEN: Normal. OTHER FINDINGS: None. IMPRESSION: No interval acute cardiopulmonary disease. Stable tubes and catheters as discussed above.
[2017-12-19] MEDS: Ferrous Sulfate 300 mg/5 mL Liq UD PO SCH (09:23)
[2017-12-19] MEDS: Ciprofloxacin 400mg/200ml D5W 400 MG/200 ML BAG IVPB SCH ×2 (09:23→21:10)
[2017-12-19] MEDS: Enoxaparin 40 mg Syringe SC SCH (09:24)
--- NOTE | 2017-12-19 10:01 | CP.PCM.PN ---
Subjective - Date & Time of Evaluation Date of Evaluation: 12/19/17 Time of Evaluation: 10:01 - Subjective Subjective: Mr. White was seen and examined at the bedside in ICU. He remains on mechanical ventilator on PRVC mode. His pupils are slight mydriasis 4mm bilaterally, non- reactive to light accommodation, no corneal reflex, + gag reflex, withdraws from pain stimuli, GCS-4T. There was no untoward events overnight Objective - Vital Signs/Intake and Output Vital Signs (last 24 hours): Temp Pulse Resp BP Pulse Ox 97.7 F 98 H 14 141/87 100 12/19/17 08:00 12/19/17 08:00 12/19/17 08:00 12/19/17 08:00 12/19/17 08:00 Intake and Output: 12/19/17 12/19/17 06:59 18:59 Intake Total 940 500 Output Total 1000 225 Balance -60 275 - Medications Medications: Current Medications Acetaminophen (Tylenol 650mg/20.3ml Solution Ud) 650 mg PO Q6 PRN PRN Reason: fever > 100.4 Last Admin: 12/13/17 16:11 Dose: 650 mg Aspirin (Aspirin Chewable) 81 mg NG DAILY [facility] Last Admin: 12/19/17 09:23 Dose: 81 mg Atorvastatin Calcium (Lipitor) 40 mg PO HS [facility] Last Admin: 12/18/17 21:09 Dose: 40 mg Clopidogrel Bisulfate (Plavix) 75 mg NG DAILY [facility] Last Admin: 12/19/17 09:24 Dose: 75 mg Enoxaparin Sodium (Lovenox) 40 mg SC DAILY [facility] PRN Reason: Protocol Last Admin: 12/19/17 09:24 Dose: 40 mg Famotidine (Pepcid) 40 mg PO DAILY [facility] Last Admin: 12/19/17 09:26 Dose: 40 mg Ferrous Sulfate (Feosol Liq) 300 mg PO DAILY [facility] Last Admin: 12/19/17 09:23 Dose: 300 mg Folic Acid (Folic Acid) 1 mg GT DAILY [facility] Last Admin: 12/19/17 09:24 Dose: 1 mg Ciprofloxacin (Cipro 400mg/200ml Dsw) 400 mg in 200 mls @ 200 mls/hr IVPB Q12 [facility] PRN Reason: Protocol Last Admin: 12/19/17 09:23 Dose: 200 mls/hr Thiamine HCl (Vitamin B1 Tab) 100 mg NG DAILY [facility] Last Admin: 12/19/17 09:24 Dose: 100 mg - Labs Labs: 12/19/17 04:20 12/19/17 04:20 PT 14.1 Seconds (9.8-13.1) H 12/01/17 09:44 INR 1.3 (0.9-1.2) H 12/01/17 09:44 APTT 34.4 Seconds (25.6-37.1) 12/01/17 09:44 - Constitutional Appears: No Acute Distress - Head Exam Head Exam: NORMAL INSPECTION - Eye Exam Pupil Exam: Mydriatic Additional comments: left eye 5 mm non reactive, left 4 mm non reactive - Neurological Exam Neuro motor strength exam: Left Upper Extremity: 0, Right Upper Extremity: 0, Left Lower Extremity: 0, Right Lower Extremity: 0 Additional comments: GCS-4T Assessment and Plan (1) Ischemic stroke Assessment & Plan: Case discussed with Dr. Mcneill, continue all current medical regimen. Recommend to treat any abnormalities in hematology, electrolyte abnormalities, keep head of bed elevated at least 30 degrees, blood pressure and glycemic control. Status: Acute
--- NOTE | 2017-12-19 12:13 | CP.PCM.PN ---
Subjective - Date & Time of Evaluation Date of Evaluation: 12/19/17 Time of Evaluation: 12:00 - Subjective Subjective: Remains intubated on [facility] Vent 14/450/5/40% Responds to deep pain however pupils nonreactive Breaths over Vent awaiting Guardianship - application in progress Tolerating Tube feeding Pt has low grade fever Objective - Vital Signs/Intake and Output Vital Signs (last 24 hours): Temp Pulse Resp BP Pulse Ox 97.7 F 99 H 15 131/84 100 12/19/17 08:00 12/19/17 10:00 12/19/17 10:00 12/19/17 10:00 12/19/17 10:00 Intake and Output: 12/19/17 12/19/17 06:59 18:59 Intake Total 940 500 Output Total 1000 225 Balance -60 275 - Medications Medications: Current Medications Acetaminophen (Tylenol 650mg/20.3ml Solution Ud) 650 mg PO Q6 PRN PRN Reason: fever > 100.4 Last Admin: 12/13/17 16:11 Dose: 650 mg Aspirin (Aspirin Chewable) 81 mg NG DAILY [facility] Last Admin: 12/19/17 09:23 Dose: 81 mg Atorvastatin Calcium (Lipitor) 40 mg PO HS [facility] Last Admin: 12/18/17 21:09 Dose: 40 mg Clopidogrel Bisulfate (Plavix) 75 mg NG DAILY [facility] Last Admin: 12/19/17 09:24 Dose: 75 mg Enoxaparin Sodium (Lovenox) 40 mg SC DAILY [facility] PRN Reason: Protocol Last Admin: 12/19/17 09:24 Dose: 40 mg Famotidine (Pepcid) 40 mg PO DAILY [facility] Last Admin: 12/19/17 09:26 Dose: 40 mg Ferrous Sulfate (Feosol Liq) 300 mg PO DAILY [facility] Last Admin: 12/19/17 09:23 Dose: 300 mg Folic Acid (Folic Acid) 1 mg GT DAILY [facility] Last Admin: 12/19/17 09:24 Dose: 1 mg Ciprofloxacin (Cipro 400mg/200ml Dsw) 400 mg in 200 mls @ 200 mls/hr IVPB Q12 [facility] PRN Reason: Protocol Last Admin: 12/19/17 09:23 Dose: 200 mls/hr Thiamine HCl (Vitamin B1 Tab) 100 mg NG DAILY [facility] Last Admin: 12/19/17 09:24 Dose: 100 mg - Labs Labs: 12/19/17 04:20 12/19/17 04:20 PT 14.1 Seconds (9.8-13.1) H 12/01/17 09:44 INR 1.3 (0.9-1.2) H 12/01/17 09:44 APTT 34.4 Seconds (25.6-37.1) 12/01/17 09:44 - Constitutional Appears: chronically ill, Intubated on Vent (PVRC/AC 40% FiO2) - Head Exam Head Exam: NORMAL INSPECTION, NORMOCEPHALIC - Eye Exam Eye Exam: Pupil Exam: Fixed, 4mm, not reactive to light - ENT Exam ENT Exam: Mucous Membranes Dry, Normal External Ear Exam - Neck Exam Neck Exam: absent: Meningismus - Respiratory Exam Respiratory Exam: Rhonchi, coarse rales Additional comments: Intubated on Vent - Cardiovascular Exam Cardiovascular Exam: REGULAR RHYTHM, +S1, +S2 - GI/Abdominal Exam GI & Abdominal Exam: Soft, Normal Bowel Sounds OGT in place - Extremities Exam Extremities Exam: Pedal Edema, edematous upper ext - Neurological Exam Additional comments: responds to deep pain by sl movement fixed pupils no gag reflex breathes over the Vent Assessment and Plan (1) Acute CVA (cerebrovascular accident) Status: Acute (2) Altered mental status Status: Acute (3) Slurring of speech Status: Acute (4) HTN (hypertension) Status: Chronic (5) Acute metabolic encephalopathy Status: Acute (6) Acute respiratory insufficiency Status: Acute (7) DVT prophylaxis Status: Acute - Assessment and Plan (Free Text) Assessment: 62y/o White male , initially admitted as Tez White , now identified by Police as Jesus Grayson , unknown PMH was brought by EMS after he was observed by bystanders falling in the street. Patient was lethargic on admission however arousable , noted to have a facial droop and his speech was slurred. 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 He was transferred to ICU and intubated for airway protection. Repeat CT of head showed no change but MRI showed pontine, midbrain, cerebellar hemispheres and thalami infarct. 11/22: With episode of vomiting and possible aspiration became hypotensive, tachycardic, febrile, and hypoxemic Repeat CT head 11/28 showed :Gross edematous changes affect cerebellar hemispheres bilaterally sparing only the inferior margins somewhat and causing compression on the the mid to lower brainstem. The 4th ventricle is partially effaced but no obstructive hydrocephalus appreciated at this time. Edema has extend into the bilateral thalami, right greater than left further indicative of expanding infarction. No intracranial hemorrhage. Ethics Committee meeting recommended Emergency guardianship which is in progress. Given patient's poor prognosis medical team following him has decided that it is appropriate to " not Escalate treatment " and DNR order placed. 1. Acute CVA/ Coma state Patient is comatose , with sluggish pupils, no gag reflex, does not respond to verbal or noxious stimuli, however breathing over the vent ( not brain ) MRI brain showed pontine , midbrain, cerebellar hemispheres and thalamic infarct Repeat CT of head 11/28 showed :Gross edematous changes affect cerebellar hemispheres bilaterally sparing only the inferior margins somewhat and causing compression on the the mid to lower brainstem. The 4th ventricle is partially effaced but no obstructive hydrocephalus appreciated at this time. Edema has extend into the bilateral thalami, right greater than left further indicative of expanding infarction. No intracranial hemorrhage. Poor Prognosis Neurology on consult Continue ASA, Statin, Plavix [employer] has been notified Ethics Committee : - application for emergency guardianship Given patient's poor prognosis medical team following him has decided a Do not Escalate treatment and DNR order in place. 2. Sepsis due to Aspiration Pneumonia Still orally Intubated since 11/16 ( ET tube changed 12/09) on Vent (PVRC/AC 14/450 /5/40%) BP has improved, off levophed drip , afebrile , WBC trended down procalcitonin was elevated trachea aspirate: positive for Citrobacter and 1 blood cx positive for Staph coag negative ( ? contaminant),repeat blood cultures negative On Cipro at present received IV Vanco -now off ID consulted : Dr. Anderson Keep HOB elevated , aspiration, precautions,respiratory toilet with frequent suctioning rpt CXR today 12/19 : no change 3. UTI urine cx positive for Strep viridans - completed treatment with Vanco IV for 2 weeks 4. ? Alcoholism unclear if alcoholic, cannot obtain hx however ED note stated that patient has history of ETOH ETOH level low urine Tox : neg cont Thiamine and FA 5.DVT prophylaxis Acute Lovenox
[2017-12-19] MEDS: Acetaminophen 650mg/20.3ml solution UD PO PRN (17:20)
[2017-12-20 05:32] LABS: BASO # 0.1 K/uL (0.0-0.2); EOS # 0.3 K/uL (0.0-0.7); EOS % 4.2 % (0.0-4.0); HEMOGLOBIN 9.8 g/dL (12.0-18.0); LYMPH # 1.4 K/uL (1.0-4.3); MEAN CELL VOLUME 92.5 fl (80.0-94.0); MEAN CORPUSCULAR HEMOGLOBIN 30.9 pg (27.0-31.0); MEAN CORPUSCULAR HGB CONC 33.4 g/dL (33.0-37.0); MEAN PLATELET VOLUME 7.8 fl (7.2-11.7); MONO # 0.6 K/uL (0.0-0.8); MONO % 9.8 % (0.0-10.0); NEUT # 4.2 K/uL (1.8-7.0); NRBC % 0.1 % (0.0-0.0); RBC 3.16 Mil/uL (4.40-5.90); RED CELL DISTRIBUTION WIDTH 17.6 % (11.5-14.5); WHITE BLOOD COUNT 6.5 K/uL (4.8-10.8)
[2017-12-20 05:42] LABS: ABG ALLEN TEST YES; ARTERIAL BLOOD GAS HCO3 34.3 mmol/L (21-28); ARTERIAL BLOOD GAS HEMOGLOBIN 10.2 g/dL (11.7-17.4); ARTERIAL BLOOD GAS O2 CAPACITY 13.8 mL/dL (16-24); ARTERIAL BLOOD GAS O2 CONTENT 9.4 ML/dL (15-23); ARTERIAL BLOOD GAS O2 SAT 68.3 % (95-98); ARTERIAL BLOOD GAS PCO2 51 mm/Hg (35-45); ARTERIAL BLOOD GAS PH 7.48 (7.35-7.45); ARTERIAL BLOOD GAS PO2 33 mm/Hg (80-100); ARTERIAL BLOOD GAS TCO2 39.6 mmol/L (22-28)
[2017-12-20 05:57] LABS: ALB/GLOB RATIO 0.7 (1.0-2.1); ALBUMIN 3.1 g/dL (3.5-5.0); ALT/SGPT 35 U/L (21-72); AST/SGOT 65 U/L (17-59); BLOOD UREA NITROGEN 16 mg/dl (9-20); CALCIUM 8.5 mg/dL (8.4-10.2); GFR AFRICAN-AMERICAN > 60; GFR NON-AFRICAN AMERICAN > 60
[2017-12-20 07:22] LABS: ABG ALLEN TEST YES; ARTERIAL BLOOD GAS HEMOGLOBIN 10.1 g/dL (11.7-17.4); ARTERIAL BLOOD GAS O2 CAPACITY 14.7 mL/dL (16-24); ARTERIAL BLOOD GAS O2 CONTENT 14.7 ML/dL (15-23); ARTERIAL BLOOD GAS PCO2 55 mm/Hg (35-45); ARTERIAL BLOOD GAS PH 7.44 (7.35-7.45); ARTERIAL BLOOD GAS PO2 329 mm/Hg (80-100); ARTERIAL BLOOD GAS TCO2 39.1 mmol/L (22-28)
--- NOTE | 2017-12-20 07:32 | CP.PCM.PN ---
Subjective - Date & Time of Evaluation Date of Evaluation: 12/20/17 Time of Evaluation: 07:30 - Subjective Subjective: Patient seen and examined bedside. Intubated on MV PRVC/ Ac mode 14/450/5/100 % with ABG 55/329/34/7.4 Not sedated , comatose Not on pressors.BP 143/92 HR 104 afebrile Pupils fixed and dilated , no cornea, no gag reflex ,not woithdrawing to noxious stimuli No acute issuers overnight CXR showed no infiltrate Poor prognosis Objective - Vital Signs/Intake and Output Vital Signs (last 24 hours): Temp Pulse Resp BP Pulse Ox 98.8 F 104 H 14 143/92 H 100 12/20/17 04:00 12/20/17 06:00 12/20/17 06:00 12/20/17 06:00 12/20/17 06:00 Intake and Output: 12/20/17 12/20/17 06:59 18:59 Intake Total 1020 Output Total 1000 Balance 20 - Medications Medications: Current Medications Acetaminophen (Tylenol 650mg/20.3ml Solution Ud) 650 mg PO Q6 PRN PRN Reason: fever > 100.4 Last Admin: 12/19/17 17:20 Dose: 650 mg Aspirin (Aspirin Chewable) 81 mg NG DAILY [facility] Last Admin: 12/19/17 09:23 Dose: 81 mg Atorvastatin Calcium (Lipitor) 40 mg PO HS [facility] Last Admin: 12/19/17 21:10 Dose: 40 mg Clopidogrel Bisulfate (Plavix) 75 mg NG DAILY [facility] Last Admin: 12/19/17 09:24 Dose: 75 mg Enoxaparin Sodium (Lovenox) 40 mg SC DAILY [facility] PRN Reason: Protocol Last Admin: 12/19/17 09:24 Dose: 40 mg Famotidine (Pepcid) 40 mg PO DAILY [facility] Last Admin: 12/19/17 09:26 Dose: 40 mg Ferrous Sulfate (Feosol Liq) 300 mg PO DAILY [facility] Last Admin: 12/19/17 09:23 Dose: 300 mg Folic Acid (Folic Acid) 1 mg GT DAILY [facility] Last Admin: 12/19/17 09:24 Dose: 1 mg Ciprofloxacin (Cipro 400mg/200ml Dsw) 400 mg in 200 mls @ 200 mls/hr IVPB Q12 [facility] PRN Reason: Protocol Last Admin: 12/19/17 21:10 Dose: 200 mls/hr Thiamine HCl (Vitamin B1 Tab) 100 mg NG DAILY [facility] Last Admin: 12/19/17 09:24 Dose: 100 mg - Labs Labs: 12/20/17 04:20 12/20/17 04:20 PT 14.1 Seconds (9.8-13.1) H 12/01/17 09:44 INR 1.3 (0.9-1.2) H 12/01/17 09:44 APTT 34.4 Seconds (25.6-37.1) 12/01/17 09:44 - Constitutional Appears: Other (intubated , comatose) - Head Exam Head Exam: ATRAUMATIC, NORMOCEPHALIC - Eye Exam Pupil Exam: Fixed (dilated ) - ENT Exam ENT Exam: Mucous Membranes Dry, Normal Exam - Neck Exam Neck Exam: Normal Inspection - Respiratory Exam Respiratory Exam: Clear to Ausculation Bilateral, NORMAL BREATHING PATTERN. absent: Rhonchi, Wheezes - Cardiovascular Exam Cardiovascular Exam: REGULAR RHYTHM, +S1, +S2. absent: JVD - GI/Abdominal Exam GI & Abdominal Exam: Soft. absent: Distended, Guarding, Rebound - Rectal Exam Rectal Exam: Deferred - Extremities Exam Extremities Exam: Normal Capillary Refill. absent: Pedal Edema - Neurological Exam Additional comments: comatose no gag, no cornea,no pupillary refllex - Skin Skin Exam: Dry, Warm Assessment and Plan - Assessment and Plan (Free Text) Assessment: 62 y/o White male , initially admitted as Tez White , now identified by Police as Jesus Grayson , unknown PMH was brought by EMS after he was observed by bystanders falling in the street. Patient was lethargic on admission however arousable , noted to have a facial droop and his speech was slurred. 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 He was transferred to ICU and intubated for airway protection. Repeat CT of head showed no change but MRI showed pontine, midbrain, cerebellar hemispheres and thalami infarct. 11/22: With episode of vomiting and possible aspiration became hypotensive, tachycardic, febrile, and hypoxemic Repeat CT head 11/28 showed :Gross edematous changes affect cerebellar hemispheres bilaterally sparing only the inferior margins somewhat and causing compression on the the mid to lower brainstem. The 4th ventricle is partially effaced but no obstructive hydrocephalus appreciated at this time. Edema has extend into the bilateral thalami, right greater than left further indicative of expanding infarction. No intracranial hemorrhage. Ethics Committee meeting recommended Emergency guardianship which is in progress. Given patient's poor prognosis medical team following him has decided that it is appropriate to " not Escalate treatment " and DNR order placed. 1. Acute CVA/ Coma state Patient is comatose , pupilks fixed and dilated , no gag reflex, does not respond to verbal or noxious stimuli MRI brain showed pontine , midbrain, cerebellar hemispheres and thalamic infarct Repeat CT of head 11/28 showed :Gross edematous changes affect cerebellar hemispheres bilaterally sparing only the inferior margins somewhat and causing compression on the the mid to lower brainstem. The 4th ventricle is partially effaced but no obstructive hydrocephalus appreciated at this time. Edema has extend into the bilateral thalami, right greater than left further indicative of expanding infarction. No intracranial hemorrhage. Poor Prognosis Neurology on consult Continue ASA, Statin, Plavix Sh[employer] network has been notified Ethics Committee : - application for emergency guardianship Given patient's poor prognosis medical team following him has decided a Do not Escalate treatment and DNR order in place. 2. Sepsis due to Aspiration Pneumonia Still orally Intubated since 11/16 ( ET tube changed 12/09) on Vent (PVRC/AC 14/450 /5/40%) BP has improved, off levophed drip , afebrile , WBC trended down procalcitonin was elevated trachea aspirate: positive for Citrobacter and 1 blood cx positive for Staph coag negative ( ? contaminant),repeat blood cultures negative On Cipro at present received IV Vanco -now off ID consulted : Dr. Anderson Keep HOB elevated , aspiration, precautions,respiratory toilet with frequent suctioning CXR today showed no infiltrate 3. UTI urine cx positive for Strep viridans - completed treatment with Vanco IV for 2 weeks 4. ? Alcoholism unclear if alcoholic, cannot obtain hx however ED note stated that patient has history of ETOH ETOH level low urine Tox : neg cont Thiamine and FA 5.DVT prophylaxis Acute Lovenox
[2017-12-20] MEDS: Ciprofloxacin 400mg/200ml D5W 400 MG/200 ML BAG IVPB SCH ×2 (08:23→21:04)
[2017-12-20] MEDS: Ferrous Sulfate 300 mg/5 mL Liq UD PO SCH (08:23)
[2017-12-20] MEDS: Enoxaparin 40 mg Syringe SC SCH (08:23)
--- NOTE | 2017-12-20 09:49 | RAD ---
HISTORY: ETT placement COMPARISON: Chest radiograph dated 12/19/2017. FINDINGS: LUNGS: No active pulmonary disease. PLEURA: No significant pleural effusion identified, no pneumothorax apparent. CARDIOVASCULAR: Atherosclerotic aortic calcifications. Cardiomediastinal silhouette within normal limits. OSSEOUS STRUCTURES: Unchanged. VISUALIZED UPPER ABDOMEN: Normal. OTHER FINDINGS: Endotracheal and enteric tubes, unchanged. Right internal jugular access central venous catheter, unchanged. IMPRESSION: Stable tubes and lines. No significant interval change.
--- NOTE | 2017-12-20 10:04 | CP.CCUPN ---
<Matthieu Duncan - Last Filed: 12/20/17 10:57> CCU Subjective - Physician Review Subjective (Free Text): 12/20/17 10:35 Patient seen this morning. Intubated and mechanically ventilated. 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 Patient is comatose, dosnt respond to painful stimuli, no corneal reflex, pupillary response or gag reflex. Fluctuating BP, no vasopressors. CCU Objective - Vital Signs / Intake & Output Vital Signs (Last 4 hours): Vital Signs Temp Pulse Resp BP Pulse Ox 12/20/17 08:00 98.2 F 103 H 14 89/66 L 99 Intake and Output (Last 8hrs): Intake & Output 12/19/17 12/20/17 12/20/17 22:59 06:59 14:59 Intake Total 880 530 60 Output Total 550 1000 100 Balance 330 -470 -40 Intake: Intake, Piggyback 200 Tube Feeding 480 480 60 Free Water Flush 200 50 Output: Urine 550 1000 100 2-way Urethral 550 1000 100 - Physical Exam Head: Positive for: Atraumatic, Normocephalic. Negative for: Ecchymosis, Abrasion, Laceration Pupils: Negative for: PERRL Extroacular Muscles: Negative for: EOMI Conjunctiva: Positive for: Normal. Negative for: Injected, Icteric Ears: Positive for: Normal Mouth: Positive for: Dry Pharnyx: Negative for: ERYTHEMA, EXUDATE, TONSILS ENLARGED Neck: Positive for: Trachea Midline, Other (R. IJ line). Negative for: JVD, Lymphadenopathy Respiratory/Chest: Positive for: Decreased Breath Sounds. Negative for: Clear to Auscultation ( distant breath sounds b/l), Rales, Retracting, Rhonchi Cardiovascular: Positive for: Regular Rate and Rhythm, Normal S1, S2, Peripheal Pulses Present (faint), Tachycardic. Negative for: Rub, Gallop Abdomen: Positive for: Normal Bowel Sounds. Negative for: Distention, Peritoneal Signs Upper Extremity: Positive for: Capillary Refill < 2s. Negative for: Normal Inspection (Mild B/L hand edema), Cyanosis Lower Extremity: Positive for: Capillary Refill < 2 s. Negative for: Edema, NORMAL PULSES (faint), Swelling, Erythema, Temperature Abnormalties Neurological: Negative for: GCS=15 (GCS: 4T), CN II-XII Intact (comatose), Speech Normal (unable to evaluate ), Motor Func Grossly Intact, Normal Sensory Function, Normal Cerebellar Funct Skin: Positive for: Dry, Cold (extremities ). Negative for: Normal Color ( chronic skin hypopigmented lesion B/L LE), Laceration Lymphatic: Negative for: Cervical Adenopathy Psychiatric: Positive for: Other (comatose). Negative for: Alert, Oriented x 3 - Medications Active Medications: Active Medications Generic Name Dose Route Start Last Admin Trade Name Freq PRN Reason Stop Dose Admin Acetaminophen 650 mg 11/27/17 00:56 12/19/17 17:20 Tylenol 650mg/20.3ml Solution Ud PO 650 mg Q6 PRN Administration fever > 100.4 Aspirin 81 mg 11/19/17 09:00 12/20/17 08:23 Aspirin Chewable NG 81 mg DAILY ZIA Administration Atorvastatin Calcium 40 mg 11/17/17 22:00 12/19/17 21:10 Lipitor PO 40 mg HS ZIA Administration Clopidogrel Bisulfate 75 mg 11/18/17 09:45 12/20/17 08:23 Plavix NG 75 mg DAILY ZIA Administration Enoxaparin Sodium 40 mg 11/28/17 09:00 12/20/17 08:23 Lovenox SC 40 mg DAILY ZIA Administration Protocol Famotidine 40 mg 12/02/17 09:00 12/20/17 08:24 Pepcid PO 40 mg DAILY ZIA Administration Ferrous Sulfate 300 mg 12/18/17 09:00 12/20/17 08:23 Feosol Liq PO 300 mg DAILY ZIA Administration Folic Acid 1 mg 11/17/17 09:00 12/20/17 08:23 Folic Acid GT 1 mg DAILY ZIA Administration Ciprofloxacin 400 mg in 200 mls @ 200 mls/hr 12/05/17 12:00 12/20/17 08:23 Cipro 400mg/200ml Dsw IVPB 200 mls/hr Q12 ZIA Administration Protocol Thiamine HCl 100 mg 12/12/17 09:00 12/20/17 08:23 Vitamin B1 Tab NG 100 mg DAILY ZIA Administration - Patient Studies Lab Studies: Microbiology Studies 12/14/17 04:20 Blood Culture - Final Blood NO GROWTH AFTER 5 DAYS Gram Stain - Final TEST NOT PERFORMED Lab Studies 12/20/17 12/20/17 12/20/17 Range/Units 07:15 05:17 04:20 WBC (4.8-10.8) K/uL RBC (4.40-5.90) Mil/uL Hgb (12.0-18.0) g/dL Hct (35.0-51.0) % MCV (80.0-94.0) fl MCH (27.0-31.0) pg MCHC (33.0-37.0) g/dL RDW (11.5-14.5) % Plt Count (130-400) K/uL MPV (7.2-11.7) fl Neut % (Auto) (50.0-75.0) % Lymph % (Auto) (20.0-40.0) % Bonner % (Auto) (0.0-10.0) % Eos % (Auto) (0.0-4.0) % Baso % (Auto) (0.0-2.0) % Neut # (Auto) (1.8-7.0) K/uL Lymph # (Auto) (1.0-4.3) K/uL Bonner # (Auto) (0.0-0.8) K/uL Eos # (Auto) (0.0-0.7) K/uL Baso # (Auto) (0.0-0.2) K/uL pCO2 55 H 51 H (35-45) mm/Hg pO2 329 H 33 L* (80-100) mm/Hg HCO3 34.0 H 34.3 H (21-28) mmol/L ABG pH 7.44 7.48 H (7.35-7.45) ABG Total CO2 39.1 H 39.6 H (22-28) mmol/L ABG O2 Saturation 100.0 H 68.3 L (95-98) % ABG O2 Content 14.7 L 9.4 L (15-23) ML/dL ABG Base Excess 11.6 H 12.8 H (-2.0-3.0) mmol/L ABG Hemoglobin 10.1 L 10.2 L (11.7-17.4) g/dL ABG Carboxyhemoglobin 1.3 1.6 H (0.5-1.5) % POC ABG HHb (Measured) 0.0 30.6 H (0.0-5.0) % ABG Methemoglobin 1.4 1.8 (0.0-3.0) % ABG O2 Capacity 14.7 L 13.8 L (16-24) mL/dL Roberto Test Yes Yes A-a O2 Difference 315.0 188.0 mm/Hg Hgb O2 Saturation 97.3 65.9 L (95.0-98.0) % Vent Mode A/c Mechanical Rate 14 FiO2 100.0 40.0 % Tidal Volume 450 PEEP 5 Crit Value Called To Carlyle rocha md Crit Value Called By 333 Crit Value Read Back Y Blood Gas Notified Time 540 Sodium 137 (132-148) mmol/l Potassium 3.8 (3.6-5.0) MMOL/L Chloride 94 L (98-107) mmol/L Carbon Dioxide 38 H (22-30) mmol/L Anion Gap 9 L (10-20) BUN 16 (9-20) mg/dl Creatinine 0.5 L (0.8-1.5) mg/dl Est GFR ( Amer) > 60 Est GFR (Non-Af Amer) > 60 Random Glucose 107 (75-110) mg/dL Calcium 8.5 (8.4-10.2) mg/dL Total Bilirubin 0.7 (0.2-1.3) mg/dl AST 65 H (17-59) U/L ALT 35 (21-72) U/L Alkaline Phosphatase 107 (38-126) U/L Total Protein 7.6 (6.3-8.2) G/DL Albumin 3.1 L (3.5-5.0) g/dL Globulin 4.5 H (2.2-3.9) gm/dL Albumin/Globulin Ratio 0.7 L (1.0-2.1) 12/20/17 Range/Units 04:20 WBC 6.5 (4.8-10.8) K/uL RBC 3.16 L (4.40-5.90) Mil/uL Hgb 9.8 L (12.0-18.0) g/dL Hct 29.3 L (35.0-51.0) % MCV 92.5 (80.0-94.0) fl MCH 30.9 (27.0-31.0) pg MCHC 33.4 (33.0-37.0) g/dL RDW 17.6 H (11.5-14.5) % Plt Count 356 (130-400) K/uL MPV 7.8 (7.2-11.7) fl Neut % (Auto) 64.0 (50.0-75.0) % Lymph % (Auto) 21.0 (20.0-40.0) % Bonner % (Auto) 9.8 (0.0-10.0) % Eos % (Auto) 4.2 H (0.0-4.0) % Baso % (Auto) 1.0 (0.0-2.0) % Neut # (Auto) 4.2 (1.8-7.0) K/uL Lymph # (Auto) 1.4 (1.0-4.3) K/uL Bonner # (Auto) 0.6 (0.0-0.8) K/uL Eos # (Auto) 0.3 (0.0-0.7) K/uL Baso # (Auto) 0.1 (0.0-0.2) K/uL pCO2 (35-45) mm/Hg pO2 (80-100) mm/Hg HCO3 (21-28) mmol/L ABG pH (7.35-7.45) ABG Total CO2 (22-28) mmol/L ABG O2 Saturation (95-98) % ABG O2 Content (15-23) ML/dL ABG Base Excess (-2.0-3.0) mmol/L ABG Hemoglobin (11.7-17.4) g/dL ABG Carboxyhemoglobin (0.5-1.5) % POC ABG HHb (Measured) (0.0-5.0) % ABG Methemoglobin (0.0-3.0) % ABG O2 Capacity (16-24) mL/dL Roberto Test A-a O2 Difference mm/Hg Hgb O2 Saturation (95.0-98.0) % Vent Mode Mechanical Rate FiO2 % Tidal Volume PEEP Crit Value Called To Crit Value Called By Crit Value Read Back Blood Gas Notified Time Sodium (132-148) mmol/l Potassium (3.6-5.0) MMOL/L Chloride (98-107) mmol/L Carbon Dioxide (22-30) mmol/L Anion Gap (10-20) BUN (9-20) mg/dl Creatinine (0.8-1.5) mg/dl Est GFR ( Amer) Est GFR (Non-Af Amer) Random Glucose (75-110) mg/dL Calcium (8.4-10.2) mg/dL Total Bilirubin (0.2-1.3) mg/dl AST (17-59) U/L ALT (21-72) U/L Alkaline Phosphatase (38-126) U/L Total Protein (6.3-8.2) G/DL Albumin (3.5-5.0) g/dL Globulin (2.2-3.9) gm/dL Albumin/Globulin Ratio (1.0-2.1) Laboratory Results - last 24 hr 12/20/17 12/20/17 12/20/17 04:20 04:20 05:17 WBC 6.5 RBC 3.16 L Hgb 9.8 L Hct 29.3 L MCV 92.5 MCH 30.9 MCHC 33.4 RDW 17.6 H Plt Count 356 MPV 7.8 Neut % (Auto) 64.0 Lymph % (Auto) 21.0 Bonner % (Auto) 9.8 Eos % (Auto) 4.2 H Baso % (Auto) 1.0 Neut # (Auto) 4.2 Lymph # (Auto) 1.4 Bonner # (Auto) 0.6 Eos # (Auto) 0.3 Baso # (Auto) 0.1 pCO2 51 H pO2 33 L* HCO3 34.3 H ABG pH 7.48 H ABG Total CO2 39.6 H ABG O2 Saturation 68.3 L ABG O2 Content 9.4 L ABG Base Excess 12.8 H ABG Hemoglobin 10.2 L ABG Carboxyhemoglobin 1.6 H POC ABG HHb (Measured) 30.6 H ABG Methemoglobin 1.8 ABG O2 Capacity 13.8 L Roberto Test Yes A-a O2 Difference 188.0 Hgb O2 Saturation 65.9 L Vent Mode A/c Mechanical Rate 14 FiO2 40.0 Tidal Volume 450 PEEP 5 Crit Value Called To Carlyle rocha md Crit Value Called By 333 Crit Value Read Back Y Blood Gas Notified Time 540 Sodium 137 Potassium 3.8 Chloride 94 L Carbon Dioxide 38 H Anion Gap 9 L BUN 16 Creatinine 0.5 L Est GFR ( Amer) > 60 Est GFR (Non-Af Amer) > 60 Random Glucose 107 Calcium 8.5 Total Bilirubin 0.7 AST 65 H ALT 35 Alkaline Phosphatase 107 Total Protein 7.6 Albumin 3.1 L Globulin 4.5 H Albumin/Globulin Ratio 0.7 L 12/20/17 07:15 WBC RBC Hgb Hct MCV MCH MCHC RDW Plt Count MPV Neut % (Auto) Lymph % (Auto) Bonner % (Auto) Eos % (Auto) Baso % (Auto) Neut # (Auto) Lymph # (Auto) Bonner # (Auto) Eos # (Auto) Baso # (Auto) pCO2 55 H pO2 329 H HCO3 34.0 H ABG pH 7.44 ABG Total CO2 39.1 H ABG O2 Saturation 100.0 H ABG O2 Content 14.7 L ABG Base Excess 11.6 H ABG Hemoglobin 10.1 L ABG Carboxyhemoglobin 1.3 POC ABG HHb (Measured) 0.0 ABG Methemoglobin 1.4 ABG O2 Capacity 14.7 L Roberto Test Yes A-a O2 Difference 315.0 Hgb O2 Saturation 97.3 Vent Mode Mechanical Rate FiO2 100.0 Tidal Volume PEEP Crit Value Called To Crit Value Called By Crit Value Read Back Blood Gas Notified Time Sodium Potassium Chloride Carbon Dioxide Anion Gap BUN Creatinine Est GFR ( Amer) Est GFR (Non-Af Amer) Random Glucose Calcium Total Bilirubin AST ALT Alkaline Phosphatase Total Protein Albumin Globulin Albumin/Globulin Ratio Fingerstick Blood Sugar Results: 142 Review of Systems - Review of Systems Systems not reviewed;Unavailable: Acuity of Condition Critical Care Progress Note - Ventilator Checklist Head of Bed 30 Degrees: Yes Daily Sedation Vacation: No Daily Assessment of Readiness to Wean: No Daily Spontaneous Breathing Trial: No PUD Prophalyxis: Yes DVT Prophylaxis: Yes - Vent Settings MODE:: ASSIST CONTROL TIDAL VOLUME:: 450 RESP RATE:: 14 FIO2:: 35 PEEP:: 5 - Extremities/Vascular Does the Patient have a Central Venous Catheter?: Yes Insertion Site: Internal Jugular Vein Does the Patient need a Central Venous Catheter?: Yes Does the Patient have a Holloway Catheter?: Yes Does the Patient need a Holloway Catheter?: Yes Catheter Insertion Criteria: Patient requires prolonged immobilization - Prophylaxis GI Prophylaxis GI: Pepsid - Prophylaxis DVT Prophylaxis DVT: Lovenox Assessment/Plan - Assessment and Plan (Free Text) Assessment: 63 y/o male, with unobtainable medical history, 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 Smaller cerebellar infarcts b/l -Intubated -GCS 4T -c/w respiratory support and tube feedings -C/W ASA and Plavix -poor prognosis/Ethic committee review. guardianship pending Respiratory Failure secondary CVA -2/2 to Acute CVA -intubated -continues to trigger vent -C/W 14, Vt 450, FIO2 35.0, PEEP 5 -Monitor ABGs Aspiration Pneumonia -C/W Cipro IV -CXR no interval changes on daily CXR Anemia of Unknown Etiology -Stable -No clinical evidence of acute bleeding -monitor H/H and VS Prophylaxis -Head of bed elevation @ 30 degrees -Pepcid 40 mg daily -Lovenox 40mg SC QD -SCDs <Raul Finn V - Last Filed: 12/20/17 12:38> CCU Subjective - Physician Review Events Since Last Encounter (Free Text): 12/20/17 12:36 patient is seen, examined at bedside. discussed in am rounds. family member notified by business case analyst. to discuss with family member on arriva ti ICU. agree with plan of care as detailed as in resident's note CCU Objective - Vital Signs / Intake & Output Vital Signs (Last 4 hours): Vital Signs Temp Pulse Resp BP Pulse Ox 12/20/17 12:00 97.7 F 107 H 20 98/62 L 100 12/20/17 10:00 105 H 20 104/72 99 Intake and Output (Last 8hrs): Intake & Output 12/19/17 12/20/17 12/20/17 22:59 06:59 14:59 Intake Total 880 530 280 Output Total 550 1000 250 Balance 330 -470 30 Intake: Intake, Piggyback 200 Tube Feeding 480 480 180 Free Water Flush 200 50 100 Output: Urine 550 1000 250 2-way Urethral 550 1000 250 - Medications Active Medications: Active Medications Generic Name Dose Route Start Last Admin Trade Name Freq PRN Reason Stop Dose Admin Acetaminophen 650 mg 11/27/17 00:56 12/19/17 17:20 Tylenol 650mg/20.3ml Solution Ud PO 650 mg Q6 PRN Administration fever > 100.4 Aspirin 81 mg 11/19/17 09:00 12/20/17 08:23 Aspirin Chewable NG 81 mg DAILY ZIA Administration Atorvastatin Calcium 40 mg 11/17/17 22:00 12/19/17 21:10 Lipitor PO 40 mg HS ZIA Administration Clopidogrel Bisulfate 75 mg 11/18/17 09:45 12/20/17 08:23 Plavix NG 75 mg DAILY ZIA Administration Enoxaparin Sodium 40 mg 11/28/17 09:00 12/20/17 08:23 Lovenox SC 40 mg DAILY ZIA Administration Protocol Famotidine 40 mg 12/02/17 09:00 12/20/17 08:24 Pepcid PO 40 mg DAILY ZIA Administration Ferrous Sulfate 300 mg 12/18/17 09:00 12/20/17 08:23 Feosol Liq PO 300 mg DAILY ZIA Administration Folic Acid 1 mg 11/17/17 09:00 12/20/17 08:23 Folic Acid GT 1 mg DAILY ZIA Administration Ciprofloxacin 400 mg in 200 mls @ 200 mls/hr 12/05/17 12:00 12/20/17 08:23 Cipro 400mg/200ml Dsw IVPB 200 mls/hr Q12 ZIA Administration Protocol Thiamine HCl 100 mg 12/12/17 09:00 12/20/17 08:23 Vitamin B1 Tab NG 100 mg DAILY ZIA Administration - Patient Studies Lab Studies: Lab Studies 12/20/17 12/20/17 12/20/17 Range/Units 07:15 05:17 04:20 WBC (4.8-10.8) K/uL RBC (4.40-5.90) Mil/uL Hgb (12.0-18.0) g/dL Hct (35.0-51.0) % MCV (80.0-94.0) fl MCH (27.0-31.0) pg MCHC (33.0-37.0) g/dL RDW (11.5-14.5) % Plt Count (130-400) K/uL MPV (7.2-11.7) fl Neut % (Auto) (50.0-75.0) % Lymph % (Auto) (20.0-40.0) % Bonner % (Auto) (0.0-10.0) % Eos % (Auto) (0.0-4.0) % Baso % (Auto) (0.0-2.0) % Neut # (Auto) (1.8-7.0) K/uL Lymph # (Auto) (1.0-4.3) K/uL Bonner # (Auto) (0.0-0.8) K/uL Eos # (Auto) (0.0-0.7) K/uL Baso # (Auto) (0.0-0.2) K/uL pCO2 55 H 51 H (35-45) mm/Hg pO2 329 H 33 L* (80-100) mm/Hg HCO3 34.0 H 34.3 H (21-28) mmol/L ABG pH 7.44 7.48 H (7.35-7.45) ABG Total CO2 39.1 H 39.6 H (22-28) mmol/L ABG O2 Saturation 100.0 H 68.3 L (95-98) % ABG O2 Content 14.7 L 9.4 L (15-23) ML/dL ABG Base Excess 11.6 H 12.8 H (-2.0-3.0) mmol/L ABG Hemoglobin 10.1 L 10.2 L (11.7-17.4) g/dL ABG Carboxyhemoglobin 1.3 1.6 H (0.5-1.5) % POC ABG HHb (Measured) 0.0 30.6 H (0.0-5.0) % ABG Methemoglobin 1.4 1.8 (0.0-3.0) % ABG O2 Capacity 14.7 L 13.8 L (16-24) mL/dL Roberto Test Yes Yes A-a O2 Difference 315.0 188.0 mm/Hg Hgb O2 Saturation 97.3 65.9 L (95.0-98.0) % Vent Mode A/c Mechanical Rate 14 FiO2 100.0 40.0 % Tidal Volume 450 PEEP 5 Crit Value Called To Carlyle rocha md Crit Value Called By 333 Crit Value Read Back Y Blood Gas Notified Time 540 Sodium 137 (132-148) mmol/l Potassium 3.8 (3.6-5.0) MMOL/L Chloride 94 L (98-107) mmol/L Carbon Dioxide 38 H (22-30) mmol/L Anion Gap 9 L (10-20) BUN 16 (9-20) mg/dl Creatinine 0.5 L (0.8-1.5) mg/dl Est GFR ( Amer) > 60 Est GFR (Non-Af Amer) > 60 Random Glucose 107 (75-110) mg/dL Calcium 8.5 (8.4-10.2) mg/dL Total Bilirubin 0.7 (0.2-1.3) mg/dl AST 65 H (17-59) U/L ALT 35 (21-72) U/L Alkaline Phosphatase 107 (38-126) U/L Total Protein 7.6 (6.3-8.2) G/DL Albumin 3.1 L (3.5-5.0) g/dL Globulin 4.5 H (2.2-3.9) gm/dL Albumin/Globulin Ratio 0.7 L (1.0-2.1) 12/20/17 Range/Units 04:20 WBC 6.5 (4.8-10.8) K/uL RBC 3.16 L (4.40-5.90) Mil/uL Hgb 9.8 L (12.0-18.0) g/dL Hct 29.3 L (35.0-51.0) % MCV 92.5 (80.0-94.0) fl MCH 30.9 (27.0-31.0) pg MCHC 33.4 (33.0-37.0) g/dL RDW 17.6 H (11.5-14.5) % Plt Count 356 (130-400) K/uL MPV 7.8 (7.2-11.7) fl Neut % (Auto) 64.0 (50.0-75.0) % Lymph % (Auto) 21.0 (20.0-40.0) % Bonner % (Auto) 9.8 (0.0-10.0) % Eos % (Auto) 4.2 H (0.0-4.0) % Baso % (Auto) 1.0 (0.0-2.0) % Neut # (Auto) 4.2 (1.8-7.0) K/uL Lymph # (Auto) 1.4 (1.0-4.3) K/uL Bonner # (Auto) 0.6 (0.0-0.8) K/uL Eos # (Auto) 0.3 (0.0-0.7) K/uL Baso # (Auto) 0.1 (0.0-0.2) K/uL pCO2 (35-45) mm/Hg pO2 (80-100) mm/Hg HCO3 (21-28) mmol/L ABG pH (7.35-7.45) ABG Total CO2 (22-28) mmol/L ABG O2 Saturation (95-98) % ABG O2 Content (15-23) ML/dL ABG Base Excess (-2.0-3.0) mmol/L ABG Hemoglobin (11.7-17.4) g/dL ABG Carboxyhemoglobin (0.5-1.5) % POC ABG HHb (Measured) (0.0-5.0) % ABG Methemoglobin (0.0-3.0) % ABG O2 Capacity (16-24) mL/dL Roberto Test A-a O2 Difference mm/Hg Hgb O2 Saturation (95.0-98.0) % Vent Mode Mechanical Rate FiO2 % Tidal Volume PEEP Crit Value Called To Crit Value Called By Crit Value Read Back Blood Gas Notified Time Sodium (132-148) mmol/l Potassium (3.6-5.0) MMOL/L Chloride (98-107) mmol/L Carbon Dioxide (22-30) mmol/L Anion Gap (10-20) BUN (9-20) mg/dl Creatinine (0.8-1.5) mg/dl Est GFR ( Amer) Est GFR (Non-Af Amer) Random Glucose (75-110) mg/dL Calcium (8.4-10.2) mg/dL Total Bilirubin (0.2-1.3) mg/dl AST (17-59) U/L ALT (21-72) U/L Alkaline Phosphatase (38-126) U/L Total Protein (6.3-8.2) G/DL Albumin (3.5-5.0) g/dL Globulin (2.2-3.9) gm/dL Albumin/Globulin Ratio (1.0-2.1) Laboratory Results - last 24 hr 12/20/17 12/20/17 12/20/17 04:20 04:20 05:17 WBC 6.5 RBC 3.16 L Hgb 9.8 L Hct 29.3 L MCV 92.5 MCH 30.9 MCHC 33.4 RDW 17.6 H Plt Count 356 MPV 7.8 Neut % (Auto) 64.0 Lymph % (Auto) 21.0 Bonner % (Auto) 9.8 Eos % (Auto) 4.2 H Baso % (Auto) 1.0 Neut # (Auto) 4.2 Lymph # (Auto) 1.4 Bonner # (Auto) 0.6 Eos # (Auto) 0.3 Baso # (Auto) 0.1 pCO2 51 H pO2 33 L* HCO3 34.3 H ABG pH 7.48 H ABG Total CO2 39.6 H ABG O2 Saturation 68.3 L ABG O2 Content 9.4 L ABG Base Excess 12.8 H ABG Hemoglobin 10.2 L ABG Carboxyhemoglobin 1.6 H POC ABG HHb (Measured) 30.6 H ABG Methemoglobin 1.8 ABG O2 Capacity 13.8 L Roberto Test Yes A-a O2 Difference 188.0 Hgb O2 Saturation 65.9 L Vent Mode A/c Mechanical Rate 14 FiO2 40.0 Tidal Volume 450 PEEP 5 Crit Value Called To Carlyle rocha md Crit Value Called By 333 Crit Value Read Back Y Blood Gas Notified Time 540 Sodium 137 Potassium 3.8 Chloride 94 L Carbon Dioxide 38 H Anion Gap 9 L BUN 16 Creatinine 0.5 L Est GFR ( Amer) > 60 Est GFR (Non-Af Amer) > 60 Random Glucose 107 Calcium 8.5 Total Bilirubin 0.7 AST 65 H ALT 35 Alkaline Phosphatase 107 Total Protein 7.6 Albumin 3.1 L Globulin 4.5 H Albumin/Globulin Ratio 0.7 L 12/20/17 07:15 WBC RBC Hgb Hct MCV MCH MCHC RDW Plt Count MPV Neut % (Auto) Lymph % (Auto) Bonner % (Auto) Eos % (Auto) Baso % (Auto) Neut # (Auto) Lymph # (Auto) Bonner # (Auto) Eos # (Auto) Baso # (Auto) pCO2 55 H pO2 329 H HCO3 34.0 H ABG pH 7.44 ABG Total CO2 39.1 H ABG O2 Saturation 100.0 H ABG O2 Content 14.7 L ABG Base Excess 11.6 H ABG Hemoglobin 10.1 L ABG Carboxyhemoglobin 1.3 POC ABG HHb (Measured) 0.0 ABG Methemoglobin 1.4 ABG O2 Capacity 14.7 L Roberto Test Yes A-a O2 Difference 315.0 Hgb O2 Saturation 97.3 Vent Mode Mechanical Rate FiO2 100.0 Tidal Volume PEEP Crit Value Called To Crit Value Called By Crit Value Read Back Blood Gas Notified Time Sodium Potassium Chloride Carbon Dioxide Anion Gap BUN Creatinine Est GFR ( Amer) Est GFR (Non-Af Amer) Random Glucose Calcium Total Bilirubin AST ALT Alkaline Phosphatase Total Protein Albumin Globulin Albumin/Globulin Ratio
[2017-12-21 05:20] LABS: HEMOGLOBIN 9.2 g/dL (12.0-18.0); MEAN CELL VOLUME 92.6 fl (80.0-94.0); MEAN CORPUSCULAR HEMOGLOBIN 30.7 pg (27.0-31.0); MEAN CORPUSCULAR HGB CONC 33.2 g/dL (33.0-37.0); RBC 2.99 Mil/uL (4.40-5.90); RED CELL DISTRIBUTION WIDTH 18.3 % (11.5-14.5)
[2017-12-21 05:29] LABS: BLOOD UREA NITROGEN 20 mg/dl (9-20); CALCIUM 8.3 mg/dL (8.4-10.2); GFR AFRICAN-AMERICAN > 60; GFR NON-AFRICAN AMERICAN > 60
[2017-12-21 05:47] LABS: ABG ALLEN TEST YES; ARTERIAL BLOOD GAS HEMOGLOBIN 9.4 g/dL (11.7-17.4); ARTERIAL BLOOD GAS O2 CAPACITY 12.8 mL/dL (16-24); ARTERIAL BLOOD GAS O2 CONTENT 12.2 ML/dL (15-23); ARTERIAL BLOOD GAS O2 SAT 95.1 % (95-98); ARTERIAL BLOOD GAS PCO2 52 mm/Hg (35-45); ARTERIAL BLOOD GAS PH 7.46 (7.35-7.45); ARTERIAL BLOOD GAS PO2 61 mm/Hg (80-100); ARTERIAL BLOOD GAS TCO2 38.6 mmol/L (22-28)
--- NOTE | 2017-12-21 07:16 | RAD ---
PROCEDURE: CHEST RADIOGRAPH, 1 VIEW HISTORY: intubated COMPARISON: Portable chest 12/20/2017. FINDINGS: Endotracheal and nasogastric tubes do not appear significantly changed in position as well as right central venous line. LUNGS: Limited patchy airspace disease developing in the left base with remaining lung peres clear. PLEURA: No pneumothorax or pleural fluid seen. CARDIOVASCULAR: Normal. OSSEOUS STRUCTURES: No significant abnormalities. VISUALIZED UPPER ABDOMEN: Normal. OTHER FINDINGS: None. IMPRESSION: Developing left basilar airspace disease with remainder the examination is stable and unremarkable. Continued clinical and radiographic monitor advised.
--- NOTE | 2017-12-21 08:22 | CP.PCM.PN ---
Subjective - Date & Time of Evaluation Date of Evaluation: 12/21/17 Time of Evaluation: 08:30 - Subjective Subjective: Patient seen and examined bedside. Intubated on MV PRVC/ Ac mode 14/450/5/35 % with ABG 52/61/34/7.46 ET noted to be too far out CXR showed developing left basilar disease Not sedated , comatose.Pupils fixed and dilated , no cornea, no gag reflex ,not withdrawing to noxious stimuli BP 117/73 HR 90 Tmax 100.8 last 24 hours Temporary guardians visited patient yesterday No acute issuers overnight Poor prognosis DNR Objective - Vital Signs/Intake and Output Vital Signs (last 24 hours): Temp Pulse Resp BP Pulse Ox 97.8 F 90 15 117/73 100 12/21/17 04:00 12/21/17 06:00 12/21/17 06:00 12/21/17 06:00 12/21/17 06:00 Intake and Output: 12/21/17 12/21/17 06:59 18:59 Intake Total 1020 Balance 1020 - Medications Medications: Current Medications Acetaminophen (Tylenol 650mg/20.3ml Solution Ud) 650 mg PO Q6 PRN PRN Reason: fever > 100.4 Last Admin: 12/19/17 17:20 Dose: 650 mg Aspirin (Aspirin Chewable) 81 mg NG DAILY [facility] Last Admin: 12/20/17 08:23 Dose: 81 mg Atorvastatin Calcium (Lipitor) 40 mg PO HS [facility] Last Admin: 12/20/17 21:04 Dose: 40 mg Clopidogrel Bisulfate (Plavix) 75 mg NG DAILY [facility] Last Admin: 12/20/17 08:23 Dose: 75 mg Enoxaparin Sodium (Lovenox) 40 mg SC DAILY [facility] PRN Reason: Protocol Last Admin: 12/20/17 08:23 Dose: 40 mg Famotidine (Pepcid) 40 mg PO DAILY [facility] Last Admin: 12/20/17 08:24 Dose: 40 mg Ferrous Sulfate (Feosol Liq) 300 mg PO DAILY [facility] Last Admin: 12/20/17 08:23 Dose: 300 mg Folic Acid (Folic Acid) 1 mg GT DAILY [facility] Last Admin: 12/20/17 08:23 Dose: 1 mg Ciprofloxacin (Cipro 400mg/200ml Dsw) 400 mg in 200 mls @ 200 mls/hr IVPB Q12 [facility] PRN Reason: Protocol Last Admin: 12/20/17 21:04 Dose: 200 mls/hr Thiamine HCl (Vitamin B1 Tab) 100 mg NG DAILY [facility] Last Admin: 12/20/17 08:23 Dose: 100 mg - Labs Labs: 12/21/17 04:20 12/21/17 04:20 PT 14.1 Seconds (9.8-13.1) H 12/01/17 09:44 INR 1.3 (0.9-1.2) H 12/01/17 09:44 APTT 34.4 Seconds (25.6-37.1) 12/01/17 09:44 - Constitutional Appears: Other (intubated , comatose) - Eye Exam Pupil Exam: Fixed Additional comments: dilated - ENT Exam ENT Exam: Mucous Membranes Moist - Neck Exam Neck Exam: Normal Inspection - Respiratory Exam Respiratory Exam: Decreased Breath Sounds (bibasilar), Clear to Ausculation Bilateral, Rhonchi Additional comments: intubated - Cardiovascular Exam Cardiovascular Exam: REGULAR RHYTHM, RRR, +S1, +S2. absent: JVD - GI/Abdominal Exam GI & Abdominal Exam: Soft, Normal Bowel Sounds. absent: Distended, Guarding, Rebound - Rectal Exam Rectal Exam: Deferred - Neurological Exam Additional comments: comatose no gag , no cornea no pupillary reflex does not withdraw to painful stimuli - Skin Skin Exam: Dry, Pallor, Warm Assessment and Plan - Assessment and Plan (Free Text) Assessment: 62 y/o White male , initially admitted as Tez White , now identified by Police as Jesus Grayson , unknown PMH was brought by EMS after he was observed by bystanders falling in the street. Patient was lethargic on admission however arousable , noted to have a facial droop and his speech was slurred. 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 He was transferred to ICU and intubated for airway protection. Repeat CT of head showed no change but MRI showed pontine, midbrain, cerebellar hemispheres and thalami infarct. 11/22: With episode of vomiting and possible aspiration became hypotensive, tachycardic, febrile, and hypoxemic Repeat CT head 11/28 showed :Gross edematous changes affect cerebellar hemispheres bilaterally sparing only the inferior margins somewhat and causing compression on the the mid to lower brainstem. The 4th ventricle is partially effaced but no obstructive hydrocephalus appreciated at this time. Edema has extend into the bilateral thalami, right greater than left further indicative of expanding infarction. No intracranial hemorrhage. Given patient's poor prognosis medical team following him has decided that it is appropriate to " not Escalate treatment " and DNR order placed. Ethics Committee meeting recommended Emergency guardianship which is in progress.Temporary guardians came to hospital yesterday and received all information in regard to patient's medical condtion and prognosis. 1. Acute CVA/ Coma state Patient is comatose , pupilks fixed and dilated , no gag reflex, does not respond to verbal or noxious stimuli MRI brain showed pontine , midbrain, cerebellar hemispheres and thalamic infarct Repeat CT of head 11/28 showed :Gross edematous changes affect cerebellar hemispheres bilaterally sparing only the inferior margins somewhat and causing compression on the the mid to lower brainstem. The 4th ventricle is partially effaced but no obstructive hydrocephalus appreciated at this time. Edema has extend into the bilateral thalami, right greater than left further indicative of expanding infarction. No intracranial hemorrhage. Poor Prognosis Neurology on consult Continue ASA, Statin, Plavix Sharing network has been notified Given patient's poor prognosis medical team following him has decided a Do not Escalate treatment and DNR order in place. Temporary guardianship is i n effect 2. Sepsis due to Aspiration Pneumonia Still orally Intubated since 11/16 ( ET tube changed 12/09) on Vent (PVRC/AC 14/450 /5/40%) BP has improved, off levophed drip , afebrile , WBC trended down procalcitonin was elevated trachea aspirate: positive for Citrobacter and 1 blood cx positive for Staph coag negative ( ? contaminant),repeat blood cultures negative On Cipro at present received IV Vanco -now off ID consulted : Dr. Anderson Keep HOB elevated , aspiration, precautions,respiratory toilet with frequent suctioning 3. UTI urine cx positive for Strep viridans - completed treatment with Vanco IV for 2 weeks 4. ? Alcoholism unclear if alcoholic, cannot obtain hx however ED note stated that patient has history of ETOH ETOH level low urine Tox : neg cont Thiamine and FA 5.DVT prophylaxis Acute Lovenox
[2017-12-21] MEDS: Ciprofloxacin 400mg/200ml D5W 400 MG/200 ML BAG IVPB SCH (09:58)
[2017-12-21] MEDS: Enoxaparin 40 mg Syringe SC SCH (09:59)
[2017-12-21] MEDS: Ferrous Sulfate 300 mg/5 mL Liq UD PO SCH (09:59)
--- NOTE | 2017-12-21 10:33 | CP.CCUPN ---
<Matthieu Duncan - Last Filed: 12/21/17 10:36> CCU Subjective - Physician Review Subjective (Free Text): 12/21/17 10:33 Patient seen this morning. Continues Intubated and mechanically ventilated. ETT repositioned this AM by respiratory after it was noticed to had moved out slightly. Patient is comatose, doesn't respond to painful stimuli, no corneal reflex, pupillary response or gag reflex. Fluctuating BP without needing vasopressors. Afebrile. Continues producing moderate amount of resp secretions daily. Temporary designed guardian visited Yesterday. CCU Objective - Vital Signs / Intake & Output Vital Signs (Last 4 hours): Vital Signs Temp Pulse Resp BP Pulse Ox 12/21/17 10:00 98 F 94 H 12 93/60 L 99 12/21/17 08:00 98.7 F 89 15 118/71 100 Intake and Output (Last 8hrs): Intake & Output 12/20/17 12/21/17 12/21/17 22:59 06:59 14:59 Intake Total 780 530 540 Output Total 350 200 Balance 430 530 340 Weight 148 lb 8 oz Intake: IV 250 Intake, Piggyback 200 Tube Feeding 480 480 240 Free Water Flush 100 50 50 Output: Urine 350 200 2-way Urethral 350 200 - Physical Exam Head: Positive for: Atraumatic, Normocephalic. Negative for: Ecchymosis, Abrasion, Laceration Pupils: Negative for: PERRL Extroacular Muscles: Negative for: EOMI Conjunctiva: Positive for: Normal. Negative for: Injected, Icteric Ears: Positive for: Normal Mouth: Positive for: Dry Pharnyx: Negative for: ERYTHEMA, EXUDATE, TONSILS ENLARGED Neck: Positive for: Trachea Midline, Other (R. IJ line). Negative for: JVD, Lymphadenopathy Respiratory/Chest: Positive for: Decreased Breath Sounds. Negative for: Clear to Auscultation ( distant breath sounds b/l), Rales, Retracting, Rhonchi Cardiovascular: Positive for: Regular Rate and Rhythm, Normal S1, S2, Peripheal Pulses Present (faint), Tachycardic. Negative for: Rub, Gallop Abdomen: Positive for: Normal Bowel Sounds. Negative for: Distention, Peritoneal Signs Upper Extremity: Positive for: Capillary Refill < 2s. Negative for: Normal Inspection (Mild B/L hand edema), Cyanosis Lower Extremity: Positive for: Capillary Refill < 2 s. Negative for: Edema, NORMAL PULSES (faint), Swelling, Erythema, Temperature Abnormalties Neurological: Negative for: GCS=15 (GCS: 4T), CN II-XII Intact (comatose), Speech Normal (unable to evaluate ), Motor Func Grossly Intact, Normal Sensory Function, Normal Cerebellar Funct Skin: Positive for: Dry, Cold (extremities ). Negative for: Normal Color ( chronic skin hypopigmented lesion B/L LE), Laceration Lymphatic: Negative for: Cervical Adenopathy Psychiatric: Positive for: Other (comatose). Negative for: Alert, Oriented x 3 - Medications Active Medications: Active Medications Generic Name Dose Route Start Last Admin Trade Name Freq PRN Reason Stop Dose Admin Acetaminophen 650 mg 11/27/17 00:56 12/19/17 17:20 Tylenol 650mg/20.3ml Solution Ud PO 650 mg Q6 PRN Administration fever > 100.4 Aspirin 81 mg 11/19/17 09:00 12/21/17 09:58 Aspirin Chewable NG 81 mg DAILY [facility] Administration Atorvastatin Calcium 40 mg 11/17/17 22:00 12/20/17 21:04 Lipitor PO 40 mg HS [facility] Administration Clopidogrel Bisulfate 75 mg 11/18/17 09:45 12/21/17 10:00 Plavix NG 75 mg DAILY [facility] Administration Enoxaparin Sodium 40 mg 11/28/17 09:00 12/21/17 09:59 Lovenox SC 40 mg DAILY [facility] Administration Protocol Famotidine 40 mg 12/02/17 09:00 12/21/17 10:00 Pepcid PO 40 mg DAILY [facility] Administration Ferrous Sulfate 300 mg 12/18/17 09:00 12/21/17 09:59 Feosol Liq PO 300 mg DAILY [facility] Administration Folic Acid 1 mg 11/17/17 09:00 12/21/17 09:59 Folic Acid GT 1 mg DAILY [facility] Administration Ciprofloxacin 400 mg in 200 mls @ 200 mls/hr 12/05/17 12:00 12/21/17 09:58 Cipro 400mg/200ml Dsw IVPB 200 mls/hr Q12 [facility] Administration Protocol Thiamine HCl 100 mg 12/12/17 09:00 12/21/17 10:00 Vitamin B1 Tab NG 100 mg DAILY [facility] Administration - Patient Studies Lab Studies: Lab Studies 12/21/17 12/21/17 12/21/17 Range/Units 05:24 04:20 04:20 WBC 9.0 (4.8-10.8) K/uL RBC 2.99 L (4.40-5.90) Mil/uL Hgb 9.2 L (12.0-18.0) g/dL Hct 27.7 L (35.0-51.0) % MCV 92.6 (80.0-94.0) fl MCH 30.7 (27.0-31.0) pg MCHC 33.2 (33.0-37.0) g/dL RDW 18.3 H (11.5-14.5) % Plt Count 297 (130-400) K/uL pCO2 52 H (35-45) mm/Hg pO2 61 L (80-100) mm/Hg HCO3 34.0 H (21-28) mmol/L ABG pH 7.46 H (7.35-7.45) ABG Total CO2 38.6 H (22-28) mmol/L ABG O2 Saturation 95.1 (95-98) % ABG O2 Content 12.2 L (15-23) ML/dL ABG Base Excess 11.7 H (-2.0-3.0) mmol/L ABG Hemoglobin 9.4 L (11.7-17.4) g/dL ABG Carboxyhemoglobin 2.1 H (0.5-1.5) % POC ABG HHb (Measured) 4.7 (0.0-5.0) % ABG Methemoglobin 1.2 (0.0-3.0) % ABG O2 Capacity 12.8 L (16-24) mL/dL Roberto Test Yes A-a O2 Difference 124.0 mm/Hg Hgb O2 Saturation 92.0 L (95.0-98.0) % Vent Mode A/c Mechanical Rate 14 FiO2 35.0 % Tidal Volume 450 PEEP 5 Sodium 135 (132-148) mmol/l Potassium 3.5 L (3.6-5.0) MMOL/L Chloride 92 L (98-107) mmol/L Carbon Dioxide 34 H (22-30) mmol/L Anion Gap 13 (10-20) BUN 20 (9-20) mg/dl Creatinine 0.5 L (0.8-1.5) mg/dl Est GFR ( Amer) > 60 Est GFR (Non-Af Amer) > 60 Random Glucose 108 (75-110) mg/dL Calcium 8.3 L (8.4-10.2) mg/dL Laboratory Results - last 24 hr 12/21/17 12/21/17 12/21/17 04:20 04:20 05:24 WBC 9.0 RBC 2.99 L Hgb 9.2 L Hct 27.7 L MCV 92.6 MCH 30.7 MCHC 33.2 RDW 18.3 H Plt Count 297 pCO2 52 H pO2 61 L HCO3 34.0 H ABG pH 7.46 H ABG Total CO2 38.6 H ABG O2 Saturation 95.1 ABG O2 Content 12.2 L ABG Base Excess 11.7 H ABG Hemoglobin 9.4 L ABG Carboxyhemoglobin 2.1 H POC ABG HHb (Measured) 4.7 ABG Methemoglobin 1.2 ABG O2 Capacity 12.8 L Roberto Test Yes A-a O2 Difference 124.0 Hgb O2 Saturation 92.0 L Vent Mode A/c Mechanical Rate 14 FiO2 35.0 Tidal Volume 450 PEEP 5 Sodium 135 Potassium 3.5 L Chloride 92 L Carbon Dioxide 34 H Anion Gap 13 BUN 20 Creatinine 0.5 L Est GFR ( Amer) > 60 Est GFR (Non-Af Amer) > 60 Random Glucose 108 Calcium 8.3 L Fingerstick Blood Sugar Results: 142 Review of Systems - Review of Systems Systems not reviewed;Unavailable: Acuity of Condition Critical Care Progress Note - Ventilator Checklist Head of Bed 30 Degrees: Yes Daily Sedation Vacation: No Daily Assessment of Readiness to Wean: No Daily Spontaneous Breathing Trial: No PUD Prophalyxis: Yes DVT Prophylaxis: Yes - Vent Settings MODE:: ASSIST CONTROL TIDAL VOLUME:: 450 RESP RATE:: 14 FIO2:: 35 PEEP:: 5 - Extremities/Vascular Does the Patient have a Central Venous Catheter?: Yes Insertion Site: Internal Jugular Vein Does the Patient need a Central Venous Catheter?: Yes Does the Patient have a Holloway Catheter?: Yes Does the Patient need a Holloway Catheter?: Yes Catheter Insertion Criteria: Patient requires prolonged immobilization - Prophylaxis GI Prophylaxis GI: Pepsid - Prophylaxis DVT Prophylaxis DVT: Lovenox Assessment/Plan - Assessment and Plan (Free Text) Assessment: 63 y/o male, with unobtainable medical history, 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 Smaller cerebellar infarcts b/l -Intubated. Tube repositioned this AM since it had move out slightly -GCS 4T -c/w respiratory support and tube feedings -C/W ASA and Plavix -poor prognosis/Ethic committee review. guardianship pending Respiratory Failure secondary CVA -2/2 to Acute CVA -intubated -continues to trigger vent -C/W 14, Vt 450, FIO2 35.0, PEEP 5 -Monitor ABGs Aspiration Pneumonia -C/W Cipro IV -CXR no interval changes on daily CXR Anemia of Unknown Etiology -Stable -No clinical evidence of acute bleeding -monitor H/H and VS Prophylaxis -Head of bed elevation @ 30 degrees -Pepcid 40 mg daily -Lovenox 40mg SC QD -SCDs <Talib Montejo - Last Filed: 12/21/17 13:13> CCU Subjective - Physician Review Subjective (Free Text): Attestation: Patient seen and examined at the bedside with Resident Dr. Jayson Duncan; and I agree with his outline of plans and management documented below as discussed on AM rounds reflecting my review of all applicable clinical data, and participation in the care of the patient throughout the day in ICU; today, December 21, 2017.
[2017-12-21] MEDS ORDERED: Sodium Chloride 0.9% 1,000 ML IV SCH (16:45)
[2017-12-22 05:29] LABS: HEMOGLOBIN 8.5 g/dL (12.0-18.0); MEAN CELL VOLUME 92.8 fl (80.0-94.0); MEAN CORPUSCULAR HEMOGLOBIN 30.4 pg (27.0-31.0); MEAN CORPUSCULAR HGB CONC 32.8 g/dL (33.0-37.0); RBC 2.78 Mil/uL (4.40-5.90); RED CELL DISTRIBUTION WIDTH 18.3 % (11.5-14.5); WHITE BLOOD COUNT 9.2 K/uL (4.8-10.8)
[2017-12-22 05:42] LABS: ABG ALLEN TEST YES; ARTERIAL BLOOD GAS HCO3 33.9 mmol/L (21-28); ARTERIAL BLOOD GAS HEMOGLOBIN 8.7 g/dL (11.7-17.4); ARTERIAL BLOOD GAS O2 CAPACITY 11.9 mL/dL (16-24); ARTERIAL BLOOD GAS O2 CONTENT 11.5 ML/dL (15-23); ARTERIAL BLOOD GAS O2 SAT 96.5 % (95-98); ARTERIAL BLOOD GAS PCO2 41 mm/Hg (35-45); ARTERIAL BLOOD GAS PH 7.54 (7.35-7.45); ARTERIAL BLOOD GAS PO2 62 mm/Hg (80-100); ARTERIAL BLOOD GAS TCO2 36.4 mmol/L (22-28)
[2017-12-22 05:43] LABS: BLOOD UREA NITROGEN 22 mg/dl (9-20); CALCIUM 7.9 mg/dL (8.4-10.2); GFR AFRICAN-AMERICAN > 60; GFR NON-AFRICAN AMERICAN > 60
--- NOTE | 2017-12-22 08:15 | RAD ---
HISTORY: Intubated. COMPARISON: Multiple serial examinations preceding the most recent study: December 21, 2017. FINDINGS: LUNGS: No active pulmonary disease. PLEURA: No significant pleural effusion identified, no pneumothorax apparent. CARDIOVASCULAR: Normal. OSSEOUS STRUCTURES: No significant abnormalities. VISUALIZED UPPER ABDOMEN: Normal. OTHER FINDINGS: Stable, satisfactory position ventilatory, vascular and nasogastric apparatus. IMPRESSION: No significant interval change compared to the prior examination(s).
[2017-12-22] MEDS: Ferrous Sulfate 300 mg/5 mL Liq UD PO SCH (09:36)
--- NOTE | 2017-12-22 10:01 | CP.PCM.PN ---
Subjective - Date & Time of Evaluation Date of Evaluation: 12/22/17 Time of Evaluation: 09:30 - Subjective Subjective: [facility]/450/35% Responds to deep pain - flinches Tolerating Tube feeding Has low grade fever Objective - Vital Signs/Intake and Output Vital Signs (last 24 hours): Temp Pulse Resp BP Pulse Ox 100.0 F H 108 H 14 102/59 L 99 12/22/17 08:00 12/22/17 08:00 12/22/17 08:00 12/22/17 08:00 12/22/17 08:00 Intake and Output: 12/22/17 12/22/17 06:59 18:59 Intake Total 760 100 Output Total 400 Balance 360 100 - Medications Medications: Current Medications Acetaminophen (Tylenol 650mg/20.3ml Solution Ud) 650 mg PO Q6 PRN PRN Reason: fever > 100.4 Last Admin: 12/19/17 17:20 Dose: 650 mg Aspirin (Aspirin Chewable) 81 mg NG DAILY [facility] Last Admin: 12/22/17 09:36 Dose: 81 mg Atorvastatin Calcium (Lipitor) 40 mg PO HS [facility] Last Admin: 12/21/17 21:21 Dose: 40 mg Clopidogrel Bisulfate (Plavix) 75 mg NG DAILY [facility] Last Admin: 12/22/17 09:37 Dose: 75 mg Famotidine (Pepcid) 40 mg PO DAILY [facility] Last Admin: 12/22/17 09:39 Dose: 40 mg Ferrous Sulfate (Feosol Liq) 300 mg PO DAILY [facility] Last Admin: 12/22/17 09:36 Dose: 300 mg Folic Acid (Folic Acid) 1 mg GT DAILY [facility] Last Admin: 12/22/17 09:36 Dose: 1 mg Thiamine HCl (Vitamin B1 Tab) 100 mg NG DAILY [facility] Last Admin: 12/22/17 09:37 Dose: 100 mg - Labs Labs: 12/22/17 04:40 12/22/17 04:40 PT 14.1 Seconds (9.8-13.1) H 12/01/17 09:44 INR 1.3 (0.9-1.2) H 12/01/17 09:44 APTT 34.4 Seconds (25.6-37.1) 12/01/17 09:44 - Constitutional Appears: chronically ill, Intubated on Vent - Head Exam Head Exam: NORMAL INSPECTION, NORMOCEPHALIC - Eye Exam Eye Exam: Pupil Exam: Fixed, 4mm, not reactive to light - ENT Exam ENT Exam: Mucous Membranes Dry, Normal External Ear Exam - Neck Exam Neck Exam: absent: Meningismus - Respiratory Exam Respiratory Exam: Rhonchi, coarse rales Additional comments: Intubated on Vent - Cardiovascular Exam Cardiovascular Exam: REGULAR RHYTHM, +S1, +S2 - GI/Abdominal Exam GI & Abdominal Exam: Soft, Normal Bowel Sounds OGT in place - Extremities Exam Extremities Exam: Pedal Edema, edematous upper ext - Neurological Exam Additional comments: responds to deep pain by sl movement fixed pupils no gag reflex breathes over the Vent Assessment and Plan (1) Acute CVA (cerebrovascular accident) Status: Acute (2) Altered mental status Status: Acute (3) Slurring of speech Status: Acute (4) HTN (hypertension) Status: Chronic (5) Acute metabolic encephalopathy Status: Acute (6) Acute respiratory insufficiency Status: Acute (7) DVT prophylaxis Status: Acute - Assessment and Plan (Free Text) Assessment: 62 y/o White male , initially admitted as Tez White , now identified by Police as Jesus Grayson , unknown PMH was brought by EMS after he was observed by bystanders falling in the street. Patient was lethargic on admission however arousable , noted to have a facial droop and his speech was slurred. 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 He was transferred to ICU and intubated for airway protection. Repeat CT of head showed no change but MRI showed pontine, midbrain, cerebellar hemispheres and thalami infarct. 11/22: With episode of vomiting and possible aspiration became hypotensive, tachycardic, febrile, and hypoxemic Repeat CT head 11/28 showed :Gross edematous changes affect cerebellar hemispheres bilaterally sparing only the inferior margins somewhat and causing compression on the the mid to lower brainstem. The 4th ventricle is partially effaced but no obstructive hydrocephalus appreciated at this time. Edema has extend into the bilateral thalami, right greater than left further indicative of expanding infarction. No intracranial hemorrhage. Given patient's poor prognosis medical team following him has decided that it is appropriate to " not Escalate treatment " and DNR order placed. Ethics Committee meeting recommended Emergency guardianship which is in progress. Temporary guardians came to hospital 12/20 and received all information in regards to patient's medical condtion and prognosis. 1. Acute CVA/ Coma state Patient is comatose , pupilks fixed and dilated , no gag reflex, does not respond to verbal or noxious stimuli MRI brain showed pontine , midbrain, cerebellar hemispheres and thalamic infarct Repeat CT of head 11/28 showed :Gross edematous changes affect cerebellar hemispheres bilaterally sparing only the inferior margins somewhat and causing compression on the the mid to lower brainstem. The 4th ventricle is partially effaced but no obstructive hydrocephalus appreciated at this time. Edema has extend into the bilateral thalami, right greater than left further indicative of expanding infarction. No intracranial hemorrhage. Poor Prognosis Neurology on consult Continue ASA, Statin, Plavix Sharing network has been notified Given patient's poor prognosis medical team following him has decided a Do not Escalate treatment and DNR order in place. Temporary guardianship is in effect 2. Sepsis due to Aspiration Pneumonia Still orally Intubated since 11/16 ( ET tube changed 12/09) on Vent (PVRC/AC 14/450 /5/40%) BP has improved, off levophed drip , afebrile , WBC trended down procalcitonin was elevated trachea aspirate: positive for Citrobacter and 1 blood cx positive for Staph coag negative ( ? contaminant),repeat blood cultures negative completed IV antibiotic treatment with Cipro and Vanco - now off antibiotics ID consulted : Dr. Anderson Keep HOB elevated , aspiration, precautions,respiratory toilet with frequent suctioning 3. UTI urine cx positive for Strep viridans - completed treatment with Vanco IV for 2 weeks 4. ? Alcoholism unclear if alcoholic, cannot obtain hx however ED note stated that patient has history of ETOH ETOH level low urine Tox : neg cont Thiamine and FA 5.DVT prophylaxis Acute Lovenox
--- NOTE | 2017-12-22 10:09 | CP.CCUPN ---
<Matthieu Duncan - Last Filed: 12/22/17 10:11> CCU Subjective - Physician Review Subjective (Free Text): 12/22/17 10:06 Patient seen at bedside, unresponsive, intubated and mechanically ventilated. Overnight patient developed low fever of 100.4 and 100.6 this AM. Cipro IV stopped yesterday after 16-17 days. Repeated BCx 12/14 no growth. Hypotensive and tachy overnight and received 1 L of IV fluids bolus. CCU Objective - Vital Signs / Intake & Output Vital Signs (Last 4 hours): Vital Signs Temp Pulse Resp BP Pulse Ox 12/22/17 08:00 100.0 F H 108 H 14 102/59 L 99 Intake and Output (Last 8hrs): Intake & Output 12/21/17 12/22/17 12/22/17 22:59 06:59 14:59 Intake Total 510 640 100 Output Total 500 400 Balance 10 240 100 Intake: Tube Feeding 360 540 100 Free Water Flush 150 100 Output: Urine 500 400 2-way Urethral 500 400 Other: # Bowel Movements 0 - Physical Exam Head: Positive for: Atraumatic, Normocephalic. Negative for: Ecchymosis, Abrasion, Laceration Pupils: Negative for: PERRL Extroacular Muscles: Negative for: EOMI Conjunctiva: Positive for: Normal. Negative for: Injected, Icteric Ears: Positive for: Normal Mouth: Positive for: Dry Pharnyx: Negative for: ERYTHEMA, EXUDATE, TONSILS ENLARGED Neck: Positive for: Trachea Midline, Other (R. IJ line). Negative for: JVD, Lymphadenopathy Respiratory/Chest: Positive for: Decreased Breath Sounds. Negative for: Clear to Auscultation ( distant breath sounds b/l), Rales, Retracting, Rhonchi Cardiovascular: Positive for: Regular Rate and Rhythm, Normal S1, S2, Peripheal Pulses Present (faint), Tachycardic. Negative for: Rub, Gallop Abdomen: Positive for: Normal Bowel Sounds. Negative for: Distention, Peritoneal Signs Upper Extremity: Positive for: Capillary Refill < 2s. Negative for: Normal Inspection (Mild B/L hand edema), Cyanosis Lower Extremity: Positive for: Capillary Refill < 2 s. Negative for: Edema, NORMAL PULSES (faint), Swelling, Erythema, Temperature Abnormalties Neurological: Negative for: GCS=15 (GCS: 4T), CN II-XII Intact (comatose), Speech Normal (unable to evaluate ), Motor Func Grossly Intact, Normal Sensory Function, Normal Cerebellar Funct Skin: Positive for: Dry, Cold (extremities ). Negative for: Normal Color ( chronic skin hypopigmented lesion B/L LE), Laceration Lymphatic: Negative for: Cervical Adenopathy Psychiatric: Positive for: Other (comatose). Negative for: Alert, Oriented x 3 - Medications Active Medications: Active Medications Generic Name Dose Route Start Last Admin Trade Name Freq PRN Reason Stop Dose Admin Acetaminophen 650 mg 11/27/17 00:56 12/19/17 17:20 Tylenol 650mg/20.3ml Solution Ud PO 650 mg Q6 PRN Administration fever > 100.4 Aspirin 81 mg 11/19/17 09:00 12/22/17 09:36 Aspirin Chewable NG 81 mg DAILY [facility] Administration Atorvastatin Calcium 40 mg 11/17/17 22:00 12/21/17 21:21 Lipitor PO 40 mg HS [facility] Administration Clopidogrel Bisulfate 75 mg 11/18/17 09:45 12/22/17 09:37 Plavix NG 75 mg DAILY [facility] Administration Famotidine 40 mg 12/02/17 09:00 12/22/17 09:39 Pepcid PO 40 mg DAILY [facility] Administration Ferrous Sulfate 300 mg 12/18/17 09:00 12/22/17 09:36 Feosol Liq PO 300 mg DAILY [facility] Administration Folic Acid 1 mg 11/17/17 09:00 12/22/17 09:36 Folic Acid GT 1 mg DAILY [facility] Administration Thiamine HCl 100 mg 12/12/17 09:00 12/22/17 09:37 Vitamin B1 Tab NG 100 mg DAILY [facility] Administration - Patient Studies Lab Studies: Lab Studies 12/22/17 12/22/17 12/22/17 Range/Units 05:17 04:40 04:40 WBC 9.2 (4.8-10.8) K/uL RBC 2.78 L (4.40-5.90) Mil/uL Hgb 8.5 L (12.0-18.0) g/dL Hct 25.8 L (35.0-51.0) % MCV 92.8 (80.0-94.0) fl MCH 30.4 (27.0-31.0) pg MCHC 32.8 L (33.0-37.0) g/dL RDW 18.3 H (11.5-14.5) % Plt Count 272 (130-400) K/uL pCO2 41 (35-45) mm/Hg pO2 62 L (80-100) mm/Hg HCO3 33.9 H (21-28) mmol/L ABG pH 7.54 H (7.35-7.45) ABG Total CO2 36.4 H (22-28) mmol/L ABG O2 Saturation 96.5 (95-98) % ABG O2 Content 11.5 L (15-23) ML/dL ABG Base Excess 11.5 H (-2.0-3.0) mmol/L ABG Hemoglobin 8.7 L (11.7-17.4) g/dL ABG Carboxyhemoglobin 2.0 H (0.5-1.5) % POC ABG HHb (Measured) 3.4 (0.0-5.0) % ABG Methemoglobin 1.1 (0.0-3.0) % ABG O2 Capacity 11.9 L (16-24) mL/dL Roberto Test Yes A-a O2 Difference 136.0 mm/Hg Hgb O2 Saturation 93.5 L (95.0-98.0) % Vent Mode A/c Mechanical Rate 14 FiO2 35.0 % Tidal Volume 450 PEEP 5 Sodium 137 (132-148) mmol/l Potassium 3.8 (3.6-5.0) MMOL/L Chloride 94 L (98-107) mmol/L Carbon Dioxide 34 H (22-30) mmol/L Anion Gap 13 (10-20) BUN 22 H (9-20) mg/dl Creatinine 0.6 L (0.8-1.5) mg/dl Est GFR ( Amer) > 60 Est GFR (Non-Af Amer) > 60 Random Glucose 94 (75-110) mg/dL Calcium 7.9 L (8.4-10.2) mg/dL Laboratory Results - last 24 hr 12/22/17 12/22/17 12/22/17 04:40 04:40 05:17 WBC 9.2 RBC 2.78 L Hgb 8.5 L Hct 25.8 L MCV 92.8 MCH 30.4 MCHC 32.8 L RDW 18.3 H Plt Count 272 pCO2 41 pO2 62 L HCO3 33.9 H ABG pH 7.54 H ABG Total CO2 36.4 H ABG O2 Saturation 96.5 ABG O2 Content 11.5 L ABG Base Excess 11.5 H ABG Hemoglobin 8.7 L ABG Carboxyhemoglobin 2.0 H POC ABG HHb (Measured) 3.4 ABG Methemoglobin 1.1 ABG O2 Capacity 11.9 L Roberto Test Yes A-a O2 Difference 136.0 Hgb O2 Saturation 93.5 L Vent Mode A/c Mechanical Rate 14 FiO2 35.0 Tidal Volume 450 PEEP 5 Sodium 137 Potassium 3.8 Chloride 94 L Carbon Dioxide 34 H Anion Gap 13 BUN 22 H Creatinine 0.6 L Est GFR ( Amer) > 60 Est GFR (Non-Af Amer) > 60 Random Glucose 94 Calcium 7.9 L Fingerstick Blood Sugar Results: 142 Review of Systems - Review of Systems Systems not reviewed;Unavailable: Acuity of Condition Critical Care Progress Note - Ventilator Checklist Head of Bed 30 Degrees: Yes Daily Sedation Vacation: No Daily Assessment of Readiness to Wean: No Daily Spontaneous Breathing Trial: No PUD Prophalyxis: Yes DVT Prophylaxis: Yes - Vent Settings MODE:: ASSIST CONTROL TIDAL VOLUME:: 450 RESP RATE:: 14 FIO2:: 35 PEEP:: 5 - Extremities/Vascular Does the Patient have a Central Venous Catheter?: Yes Insertion Site: Internal Jugular Vein Does the Patient have a Holloway Catheter?: Yes Does the Patient need a Holloway Catheter?: Yes Catheter Insertion Criteria: Patient requires prolonged immobilization - Prophylaxis GI Prophylaxis GI: Pepsid - Prophylaxis DVT Prophylaxis DVT: Lovenox Assessment/Plan - Assessment and Plan (Free Text) Assessment: 63 y/o male, with unobtainable medical history, 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 Smaller cerebellar infarcts b/l -Intubated. -GCS 4T -c/w respiratory support and tube feedings -C/W ASA and Plavix -C/W Tube feedings -poor prognosis/Ethic committee review. temporary guardianship assigned to patient. Low grade fever -No leukocytosis -No on abx at this time -If c/w spiking will repeat cultures in the afternoon after 1 day off abx -Monitor VS -Lactate and Procalcitonin ordered. F/U results Respiratory Failure secondary CVA -2/2 to Acute CVA -intubated -C/W 14, Vt 450, FIO2 35.0, PEEP 5 -Monitor ABGs Aspiration Pneumonia -CXR no interval changes on daily CXR Anemia of Unknown Etiology -Stable -No clinical evidence of acute bleeding -monitor H/H and VS Prophylaxis -Head of bed elevation @ 30 degrees -Pepcid 40 mg daily -Lovenox 40mg SC QD -SCDs <Talib Montejo - Last Filed: 12/22/17 15:36> CCU Subjective - Physician Review Subjective (Free Text): Attestation: Patient seen and examined at the bedside with Resident Dr. Jayson Duncan; and I agree with his outline of plans and management documented below as discussed on AM rounds reflecting my review of all applicable clinical data, and participation in the care of the patient throughout the day in ICU; today, December 22, 2017. Over the past 2 hours, hypotension noted with SBP dropping to 80s, without associated tachycardia (nor any bradycardia). Neurologic re-exam shows no deterioration in neuromental status, nor pupillary changes, nor any loss of vent triggering. Fluid challenges given with some effect on BP improvement, but effects are variable and not sustained. Discussed present status with PMD and patients Guardian- Mary Kate Garland who was notified by Curing Supervisor regarding these new clinical events. Given DNR status, will not start resuscitative vasopressors beyond present fluid challenges which have amounted to 2.0 liters of saline. Guardian aware and has stated to not perform any further measures to prolong life. Patients overall appearance appears comfortable and non- distressed.
[2017-12-22] MEDS ORDERED: Sodium Chloride 0.9% 1,000 ML IV ONE (13:05)
[2017-12-22] MEDS: Enoxaparin 40 mg Syringe SC SCH (21:02)
[2017-12-23 04:29] LABS: ABG ALLEN TEST YES; ARTERIAL BLOOD GAS HCO3 32.4 mmol/L (21-28); ARTERIAL BLOOD GAS HEMOGLOBIN 6.8 g/dL (11.7-17.4); ARTERIAL BLOOD GAS O2 CAPACITY 9.3 mL/dL (16-24); ARTERIAL BLOOD GAS O2 CONTENT 9.1 ML/dL (15-23); ARTERIAL BLOOD GAS PCO2 47 mm/Hg (35-45); ARTERIAL BLOOD GAS PH 7.47 (7.35-7.45); ARTERIAL BLOOD GAS PO2 63 mm/Hg (80-100); ARTERIAL BLOOD GAS TCO2 35.6 mmol/L (22-28)
[2017-12-23 05:42] LABS: HEMOGLOBIN 7.3 g/dL (12.0-18.0); MEAN CELL VOLUME 93.4 fl (80.0-94.0); MEAN CORPUSCULAR HEMOGLOBIN 30.3 pg (27.0-31.0); MEAN CORPUSCULAR HGB CONC 32.4 g/dL (33.0-37.0); RBC 2.4 Mil/uL (4.40-5.90); RED CELL DISTRIBUTION WIDTH 18.2 % (11.5-14.5); WHITE BLOOD COUNT 11.8 K/uL (4.8-10.8)
[2017-12-23 05:58] LABS: BLOOD UREA NITROGEN 21 mg/dl (9-20); CALCIUM 7.7 mg/dL (8.4-10.2); GFR AFRICAN-AMERICAN > 60; GFR NON-AFRICAN AMERICAN > 60
--- NOTE | 2017-12-23 07:32 | RAD ---
PROCEDURE: CHEST RADIOGRAPH, 1 VIEW HISTORY: intubated COMPARISON: Portable chest 12/22/2017. FINDINGS: Endotracheal and nasogastric tubes are unchanged in position as well as right central venous line. LUNGS: Interval right basilar atelectasis or infiltrate is identified mildly with partial silhouetting the right hemidiaphragm noted. No left-sided infiltrate. PLEURA: Limited right pleural effusion is in question. None is seen at the left. There is no pneumothorax bilaterally. CARDIOVASCULAR: Normal. OSSEOUS STRUCTURES: No significant abnormalities. VISUALIZED UPPER ABDOMEN: Normal. OTHER FINDINGS: None. IMPRESSION: Interval limited right pleural effusion and right basilar atelectasis or infiltrate. Left chest remains clear.
[2017-12-23] MEDS: Ferrous Sulfate 300 mg/5 mL Liq UD PO SCH (08:24)
--- NOTE | 2017-12-23 09:27 | CP.PCM.PN ---
Subjective - Date & Time of Evaluation Date of Evaluation: 12/23/17 Time of Evaluation: 09:00 - Subjective Subjective: Low grade fever yesterday morning , no fever since Remains intubated - on [facility] Vent Tolerating Tube feeding Responds to deep pain by sl movement Breaths over the Vent Objective - Vital Signs/Intake and Output Vital Signs (last 24 hours): Temp Pulse Resp BP Pulse Ox 97.8 F 76 14 91/54 L 98 12/23/17 04:00 12/23/17 06:00 12/23/17 06:00 12/23/17 06:00 12/23/17 06:00 Intake and Output: 12/23/17 12/23/17 06:59 18:59 Intake Total 1170 210 Balance 1170 210 - Medications Medications: Current Medications Acetaminophen (Tylenol 650mg/20.3ml Solution Ud) 650 mg PO Q6 PRN PRN Reason: fever > 100.4 Last Admin: 12/19/17 17:20 Dose: 650 mg Aspirin (Aspirin Chewable) 81 mg NG DAILY [facility] Last Admin: 12/23/17 08:23 Dose: 81 mg Atorvastatin Calcium (Lipitor) 40 mg PO HS [facility] Last Admin: 12/22/17 21:01 Dose: 40 mg Clopidogrel Bisulfate (Plavix) 75 mg NG DAILY [facility] Last Admin: 12/23/17 08:23 Dose: 75 mg Enoxaparin Sodium (Lovenox) 40 mg SC HS [facility] PRN Reason: Protocol Last Admin: 12/22/17 21:02 Dose: 40 mg Famotidine (Pepcid) 40 mg PO DAILY [facility] Last Admin: 12/23/17 08:24 Dose: 40 mg Ferrous Sulfate (Feosol Liq) 300 mg PO DAILY [facility] Last Admin: 12/23/17 08:24 Dose: 300 mg Folic Acid (Folic Acid) 1 mg GT DAILY [facility] Last Admin: 12/23/17 08:24 Dose: 1 mg Thiamine HCl (Vitamin B1 Tab) 100 mg NG DAILY [facility] Last Admin: 12/23/17 08:23 Dose: 100 mg - Labs Labs: 12/23/17 04:20 12/23/17 04:20 PT 14.1 Seconds (9.8-13.1) H 12/01/17 09:44 INR 1.3 (0.9-1.2) H 12/01/17 09:44 APTT 34.4 Seconds (25.6-37.1) 12/01/17 09:44 - Constitutional Appears: chronically ill, Intubated on Vent - Head Exam Head Exam: NORMAL INSPECTION, NORMOCEPHALIC - Eye Exam Eye Exam: Pupil Exam: Fixed, 4mm, not reactive to light - ENT Exam ENT Exam: Mucous Membranes Dry, Normal External Ear Exam - Neck Exam Neck Exam: absent: Meningismus - Respiratory Exam Respiratory Exam: Rhonchi, coarse rales Additional comments: Intubated on Vent - Cardiovascular Exam Cardiovascular Exam: REGULAR RHYTHM, +S1, +S2 - GI/Abdominal Exam GI & Abdominal Exam: Soft, Normal Bowel Sounds OGT in place - Extremities Exam Extremities Exam: Pedal Edema, edematous upper ext - Neurological Exam Additional comments: responds to deep pain by sl movement fixed pupils no gag reflex breathes over the Vent Assessment and Plan (1) Acute CVA (cerebrovascular accident) Status: Acute (2) Altered mental status Status: Acute (3) Slurring of speech Status: Acute (4) HTN (hypertension) Status: Chronic (5) Acute metabolic encephalopathy Status: Acute (6) Acute respiratory insufficiency Status: Acute (7) DVT prophylaxis Status: Acute - Assessment and Plan (Free Text) Assessment: 62 y/o White male , initially admitted as Tez White , now identified by Police as Jesus Grayson , unknown PMH was brought by EMS after he was observed by bystanders falling in the street. Patient was lethargic on admission however arousable , noted to have a facial droop and his speech was slurred. 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 He was transferred to ICU and intubated for airway protection. Repeat CT of head showed no change but MRI showed pontine, midbrain, cerebellar hemispheres and thalami infarct. 11/22: With episode of vomiting and possible aspiration became hypotensive, tachycardic, febrile, and hypoxemic Repeat CT head 11/28 showed :Gross edematous changes affect cerebellar hemispheres bilaterally sparing only the inferior margins somewhat and causing compression on the the mid to lower brainstem. The 4th ventricle is partially effaced but no obstructive hydrocephalus appreciated at this time. Edema has extend into the bilateral thalami, right greater than left further indicative of expanding infarction. No intracranial hemorrhage. Given patient's poor prognosis medical team following him has decided that it is appropriate to " not Escalate treatment " and DNR order placed. Ethics Committee meeting recommended Emergency guardianship which is in progress. Temporary guardians came to hospital 12/20 and received all information in regards to patient's medical condtion and prognosis. 1. Acute CVA/ Coma state Patient is comatose , pupilks fixed and dilated , no gag reflex, does not respond to verbal or noxious stimuli MRI brain showed pontine , midbrain, cerebellar hemispheres and thalamic infarct Repeat CT of head 11/28 showed :Gross edematous changes affect cerebellar hemispheres bilaterally sparing only the inferior margins somewhat and causing compression on the the mid to lower brainstem. The 4th ventricle is partially effaced but no obstructive hydrocephalus appreciated at this time. Edema has extend into the bilateral thalami, right greater than left further indicative of expanding infarction. No intracranial hemorrhage. Poor Prognosis Neurology on consult Continue ASA, Statin, Plavix [facility] network has been notified Given patient's poor prognosis medical team following him has decided a Do not Escalate treatment and DNR order in place. Temporary guardianship is in effect 2. Sepsis due to Aspiration Pneumonia Still orally Intubated since 11/16 ( ET tube changed 12/09) on Vent (PVRC/AC 14/450 /5/35%) procalcitonin was elevated , intermittent fever Off Levophed, off all antibiotics trachea aspirate: positive for Citrobacter and 1 blood cx positive for Staph coag negative ( ? contaminant),repeat blood cultures negative completed IV antibiotic treatment with Cipro and Vanco - now off antibiotics ID consulted : Dr. Anderson Keep HOB elevated , aspiration, precautions,respiratory toilet with frequent suctioning will reculture - Blood, Trach Asp, Urine, will insert periph and d/c TLC once we have a line 3. UTI urine cx positive for Strep viridans - completed treatment with Vanco IV for 2 weeks 4. ? Alcoholism unclear if alcoholic, cannot obtain hx however ED note stated that patient has history of ETOH ETOH level low urine Tox : neg cont Thiamine and FA 5.DVT prophylaxis Acute Lovenox
--- NOTE | 2017-12-23 11:09 | CP.CCUPN ---
CCU Subjective - Physician Review Subjective (Free Text): Overall neuromental status unchanged with deep coma, moves shoulders in response to deep pain stimulus, breathing 16 on AC 14. BP s rem an low with SBP 80-90s, HR 70s. Other vitals and I/O's reviewed. T max 100.6 over last 24H. ROS: No other pertinent negs or positives on 10+ system review obtainable due to comatose date. PMSFH: Unknown relative to current disease state. All other Nursing and physician documentation reviewed to date; no new pertinent info noted relevant to current medical problems. EXAM- HEENT: no icterus, no gaze preference, pupils 3mm and NR, midline, has slight eye twitching on corneal reflex testing. +cough on ETT suctioning. NECK: No JVD, supple, carotids equal upstroke bilat/no bruits CHEST: decreased BS bases, no wheezes audible HEART: regular, distant, S1S2, no rubs or murmurs ABD: soft, no distention, no tympany, no palp tenderness, BS hypoactive EXT: No peripheral/ digital cyanosis, no calf tenderness or palpable cords, distal pulses intact and symmetrical. NEURO: flaccid x4 extremities SKIN: no rashes, warm and dry. LABS: ABG 7.47/47/63 WBC= 11.8 HGB= 7.3 PLTs= 223K Kv=824 K= 3.3 CL=98 HCO3= 35 BUN/Cr= 21/0.4 BS= 81 CXR: ETT position Ok above haresh, new R basilar effusion, and or R basilar atelectasis with reduced R lung volume ( my interp). IMPRESSION / MAJOR PROBLEMS NOW: 1. Multi-CVA involving Genie, thalamic nuclei, and cerebellum (as first dxed only on Brain MRI on 11/17) 2. Acute Resp Failure 2 #1 3. Accelerated HTN 2 CVA 4. s/p S. viridans UTI 5. Possible h/o ETOH Abuse suspected PLAN: 1. Stable, non-deteriorating neurologic status, and with brain stem reflexes. 2. DNR status re-confirmed with Guardian, discussed no additional measures to prolong life given low BP levels, will not start vasopressors. Hgb lower, but no active bleeding evident. PRBCs would be a life-pronging measure, will re- discuss with PMD and Guardian. 3. Awaiting Guardians decision regarding tracheostomy. If he deteriorates further, it may preclude any requests for the procedure. 4. Cipro discontinued after a long course, monitor serial temps and WBCs, off all antibiotics over last 2 days.
[2017-12-23] MEDS ORDERED: Potassium Chloride 20 mEq/15 ml LIQ UD GT ONE (13:41)
[2017-12-23] MEDS ORDERED: Sodium Chloride 3% for Inhalation 4 ML VIAL.NEB IH PRN (13:46)
[2017-12-23] MEDS: Enoxaparin 40 mg Syringe SC SCH (21:51)
[2017-12-24 05:48] LABS: BASO # 0.1 K/uL (0.0-0.2); BASO % 0.8 % (0.0-2.0); EOS # 0.3 K/uL (0.0-0.7); EOS % 3.8 % (0.0-4.0); HEMOGLOBIN 7.8 g/dL (12.0-18.0); LYMPH # 1.5 K/uL (1.0-4.3); LYMPH % 20.1 % (20.0-40.0); MEAN CELL VOLUME 94.5 fl (80.0-94.0); MEAN CORPUSCULAR HEMOGLOBIN 30.9 pg (27.0-31.0); MEAN CORPUSCULAR HGB CONC 32.7 g/dL (33.0-37.0); MEAN PLATELET VOLUME 8.4 fl (7.2-11.7); MONO # 0.9 K/uL (0.0-0.8); MONO % 12.2 % (0.0-10.0); NEUT # 4.7 K/uL (1.8-7.0); NEUT % 63.1 % (50.0-75.0); NRBC % 0.1 % (0.0-0.0); RBC 2.52 Mil/uL (4.40-5.90); RED CELL DISTRIBUTION WIDTH 18.6 % (11.5-14.5); WHITE BLOOD COUNT 7.4 K/uL (4.8-10.8)
[2017-12-24 06:16] LABS: BLOOD UREA NITROGEN 19 mg/dl (9-20); CALCIUM 7.8 mg/dL (8.4-10.2); GFR AFRICAN-AMERICAN > 60; GFR NON-AFRICAN AMERICAN > 60
--- NOTE | 2017-12-24 07:25 | CP.CCUPN ---
CCU Subjective - Physician Review Events Since Last Encounter (Free Text): Patient on ventilator, on PRVC TV 450, RR 14, Fio2 35%, no response to verbal stimuli, no pressors, on NG feeding, events reviewed CCU Objective - Vital Signs / Intake & Output Vital Signs (Last 4 hours): Vital Signs Temp Pulse Resp BP Pulse Ox 12/24/17 06:00 72 14 124/68 100 12/24/17 04:00 97.8 F 81 19 91/60 L 97 Intake and Output (Last 8hrs): Intake & Output 12/23/17 12/24/17 12/24/17 22:59 06:59 14:59 Intake Total 880 796 Output Total 305 400 Balance 575 396 Weight 142 lb 6.4 oz Intake: IV 10 16 Tube Feeding 420 480 Free Water Flush 450 300 Output: Gastric Amount 5 Stomach 5 Urine 300 400 2-way Urethral 300 400 Other: # Bowel Movements 0 - Physical Exam Head: Positive for: Atraumatic, Normocephalic. Negative for: Ecchymosis, Abrasion, Laceration Pupils: Negative for: PERRL Conjunctiva: Positive for: Normal. Negative for: Injected, Icteric Ears: Positive for: Normal Mouth: Positive for: Dry Neck: Positive for: Trachea Midline. Negative for: JVD, Lymphadenopathy Respiratory/Chest: Positive for: Decreased Breath Sounds. Negative for: Clear to Auscultation ( distant breath sounds b/l), Rales, Retracting, Rhonchi Cardiovascular: Positive for: Regular Rate and Rhythm, Normal S1, S2, Peripheal Pulses Present (faint), Tachycardic. Negative for: Rub, Gallop Abdomen: Positive for: Normal Bowel Sounds. Negative for: Distention, Peritoneal Signs Upper Extremity: Negative for: Normal Inspection (Mild B/L hand edema), Cyanosis Lower Extremity: Negative for: Edema, NORMAL PULSES (faint), Swelling, Erythema , Temperature Abnormalties Neurological: Positive for: Other (on ventilator, no response to verbal stimuli) Skin: Positive for: Dry. Negative for: Laceration Lymphatic: Negative for: Cervical Adenopathy Psychiatric: Positive for: Other (comatose). Negative for: Alert, Oriented x 3 - Medications Active Medications: Active Medications Generic Name Dose Route Start Last Admin Trade Name Freq PRN Reason Stop Dose Admin Acetaminophen 650 mg 11/27/17 00:56 12/19/17 17:20 Tylenol 650mg/20.3ml Solution Ud PO 650 mg Q6 PRN Administration fever > 100.4 Aspirin 81 mg 11/19/17 09:00 12/23/17 08:23 Aspirin Chewable NG 81 mg DAILY [facility] Administration Atorvastatin Calcium 40 mg 11/17/17 22:00 12/23/17 21:35 Lipitor PO 40 mg HS [facility] Administration Clopidogrel Bisulfate 75 mg 11/18/17 09:45 12/23/17 08:23 Plavix NG 75 mg DAILY [facility] Administration Enoxaparin Sodium 40 mg 12/22/17 22:00 12/23/17 21:51 Lovenox SC 40 mg HS [facility] Administration Protocol Famotidine 40 mg 12/02/17 09:00 12/23/17 08:24 Pepcid PO 40 mg DAILY [facility] Administration Ferrous Sulfate 300 mg 12/18/17 09:00 12/23/17 08:24 Feosol Liq PO 300 mg DAILY [facility] Administration Folic Acid 1 mg 11/17/17 09:00 12/23/17 08:24 Folic Acid GT 1 mg DAILY [facility] Administration Thiamine HCl 100 mg 12/12/17 09:00 12/23/17 08:23 Vitamin B1 Tab NG 100 mg DAILY [facility] Administration - Patient Studies Lab Studies: Lab Studies 12/24/17 12/24/17 12/24/17 Range/Units 05:00 05:00 05:00 WBC 7.4 (4.8-10.8) K/uL RBC 2.52 L (4.40-5.90) Mil/uL Hgb 7.8 L (12.0-18.0) g/dL Hct 23.9 L (35.0-51.0) % MCV 94.5 H (80.0-94.0) fl MCH 30.9 (27.0-31.0) pg MCHC 32.7 L (33.0-37.0) g/dL RDW 18.6 H (11.5-14.5) % Plt Count 236 (130-400) K/uL MPV 8.4 (7.2-11.7) fl Neut % (Auto) 63.1 (50.0-75.0) % Lymph % (Auto) 20.1 (20.0-40.0) % [place] % (Auto) 12.2 H (0.0-10.0) % Eos % (Auto) 3.8 (0.0-4.0) % Baso % (Auto) 0.8 (0.0-2.0) % Neut # (Auto) 4.7 (1.8-7.0) K/uL Lymph # (Auto) 1.5 (1.0-4.3) K/uL [place] # (Auto) 0.9 H (0.0-0.8) K/uL Eos # (Auto) 0.3 (0.0-0.7) K/uL Baso # (Auto) 0.1 (0.0-0.2) K/uL Sodium 136 (132-148) mmol/l Potassium 4.0 (3.6-5.0) MMOL/L Chloride 98 (98-107) mmol/L Carbon Dioxide 30 (22-30) mmol/L Anion Gap 12 (10-20) BUN 19 (9-20) mg/dl Creatinine 0.4 L (0.8-1.5) mg/dl Est GFR ( Amer) > 60 Est GFR (Non-Af Amer) > 60 Random Glucose 87 (75-110) mg/dL Calcium 7.8 L (8.4-10.2) mg/dL Blood Type O POSITIVE Antibody Screen Negative BBK History Checked No verified bt Laboratory Results - last 24 hr 12/24/17 12/24/17 12/24/17 05:00 05:00 05:00 WBC 7.4 RBC 2.52 L Hgb 7.8 L Hct 23.9 L MCV 94.5 H MCH 30.9 MCHC 32.7 L RDW 18.6 H Plt Count 236 MPV 8.4 Neut % (Auto) 63.1 Lymph % (Auto) 20.1 [place] % (Auto) 12.2 H Eos % (Auto) 3.8 Baso % (Auto) 0.8 Neut # (Auto) 4.7 Lymph # (Auto) 1.5 [place] # (Auto) 0.9 H Eos # (Auto) 0.3 Baso # (Auto) 0.1 Sodium 136 Potassium 4.0 Chloride 98 Carbon Dioxide 30 Anion Gap 12 BUN 19 Creatinine 0.4 L Est GFR ( Amer) > 60 Est GFR (Non-Af Amer) > 60 Random Glucose 87 Calcium 7.8 L Blood Type O POSITIVE Antibody Screen Negative BBK History Checked No verified bt Fingerstick Blood Sugar Results: 142 Assessment/Plan - Assessment and Plan (Free Text) Assessment: Respiratory failure, CVA, HTN, s/p sepsis, possible h/o ETOH abuse, anemia - Ventilatory support - Pulmonary toilets - NG feeding - Continue meds
--- NOTE | 2017-12-24 07:58 | CP.PCM.PN ---
Subjective - Date & Time of Evaluation Date of Evaluation: 12/24/17 Time of Evaluation: 07:45 - Subjective Subjective: Patient seen and examined bedside. Comatose with no gag , no cornea reflex , pupils fixed 4 mm bilaterally not responding to light stimuli, does not withdraw to painful stimuli.breathing over the vent Intubated on MV PRVc Ac mode 14/450/5/35 % No acute events overnight BP stable 124/68 ( not on pressors ) afebrile HR 72 OGT with 1.2 tiffany 2 60 ml/hr Objective - Vital Signs/Intake and Output Vital Signs (last 24 hours): Temp Pulse Resp BP Pulse Ox 97.8 F 72 14 124/68 100 12/24/17 04:00 12/24/17 06:00 12/24/17 06:00 12/24/17 06:00 12/24/17 06:00 Intake and Output: 12/24/17 12/24/17 06:59 18:59 Intake Total 1136 Output Total 405 Balance 731 - Medications Medications: Current Medications Acetaminophen (Tylenol 650mg/20.3ml Solution Ud) 650 mg PO Q6 PRN PRN Reason: fever > 100.4 Last Admin: 12/19/17 17:20 Dose: 650 mg Aspirin (Aspirin Chewable) 81 mg NG DAILY [facility] Last Admin: 12/23/17 08:23 Dose: 81 mg Atorvastatin Calcium (Lipitor) 40 mg PO HS [facility] Last Admin: 12/23/17 21:35 Dose: 40 mg Clopidogrel Bisulfate (Plavix) 75 mg NG DAILY [facility] Last Admin: 12/23/17 08:23 Dose: 75 mg Enoxaparin Sodium (Lovenox) 40 mg SC HS [facility] PRN Reason: Protocol Last Admin: 12/23/17 21:51 Dose: 40 mg Famotidine (Pepcid) 40 mg PO DAILY [facility] Last Admin: 12/23/17 08:24 Dose: 40 mg Ferrous Sulfate (Feosol Liq) 300 mg PO DAILY [facility] Last Admin: 12/23/17 08:24 Dose: 300 mg Folic Acid (Folic Acid) 1 mg GT DAILY [facility] Last Admin: 12/23/17 08:24 Dose: 1 mg Thiamine HCl (Vitamin B1 Tab) 100 mg NG DAILY [facility] Last Admin: 12/23/17 08:23 Dose: 100 mg - Labs Labs: 12/24/17 05:00 12/24/17 05:00 PT 14.1 Seconds (9.8-13.1) H 12/01/17 09:44 INR 1.3 (0.9-1.2) H 12/01/17 09:44 APTT 34.4 Seconds (25.6-37.1) 12/01/17 09:44 - Constitutional Appears: Other (comatose, intubated ) - Head Exam Head Exam: ATRAUMATIC, NORMOCEPHALIC - Eye Exam Eye Exam: absent: PERRL Pupil Exam: Fixed - ENT Exam ENT Exam: Mucous Membranes Dry - Neck Exam Neck Exam: Normal Inspection - Respiratory Exam Respiratory Exam: Decreased Breath Sounds (bibasilar ), Clear to Ausculation Bilateral, NORMAL BREATHING PATTERN. absent: Rhonchi, Wheezes - Cardiovascular Exam Cardiovascular Exam: REGULAR RHYTHM, RRR, +S1, +S2. absent: JVD - GI/Abdominal Exam GI & Abdominal Exam: Soft, Normal Bowel Sounds. absent: Distended, Guarding, Tenderness, Rebound - Rectal Exam Rectal Exam: Deferred - Extremities Exam Extremities Exam: absent: Pedal Edema - Neurological Exam Additional comments: comatose no cornea reflex no pupillary reflex no gag reflex does not withdraw to painful stimuli breathing over the vent - Skin Skin Exam: Dry, Pallor, Warm Assessment and Plan - Assessment and Plan (Free Text) Assessment: 62 y/o White male , initially admitted as Tez White , now identified by Police as Jesus Grayson , unknown PMH was brought by EMS after he was observed by bystanders falling in the street. Patient was lethargic on admission however arousable , noted to have a facial droop and his speech was slurred. 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 He was transferred to ICU and intubated for airway protection. Repeat CT of head showed no change but MRI showed pontine, midbrain, cerebellar hemispheres and thalami infarct. 11/22: With episode of vomiting and possible aspiration became hypotensive, tachycardic, febrile, and hypoxemic Repeat CT head 11/28 showed :Gross edematous changes affect cerebellar hemispheres bilaterally sparing only the inferior margins somewhat and causing compression on the the mid to lower brainstem. The 4th ventricle is partially effaced but no obstructive hydrocephalus appreciated at this time. Edema has extend into the bilateral thalami, right greater than left further indicative of expanding infarction. No intracranial hemorrhage. Patient is comatose with no gag , no cornea no pupillary reflex Given patient's poor prognosis medical team following him has decided that it is appropriate to " not Escalate treatment " and DNR order placed. Ethics Committee meeting recommended Emergency guardianship which is in progress. Temporary guardians came to hospital 12/20 and received all information in regards to patient's medical condition and prognosis.They agreed to DNR order . 1. Acute CVA/ Coma state Patient is comatose , pupils fixed and dilated , no gag reflex, does not respond to verbal or noxious stimuli. Breaths over the vent and maintains his BP MRI brain showed pontine , midbrain, cerebellar hemispheres and thalamic infarct Repeat CT of head 11/28 showed :Gross edematous changes affect cerebellar hemispheres bilaterally sparing only the inferior margins somewhat and causing compression on the the mid to lower brainstem. The 4th ventricle is partially effaced but no obstructive hydrocephalus appreciated at this time. Edema has extend into the bilateral thalami, right greater than left further indicative of expanding infarction. No intracranial hemorrhage. Poor Prognosis Neurology on consult Continue ASA, Statin, Plavix Sharing network has been notified Given patient's poor prognosis medical team following him has decided a Do not Escalate treatment and DNR order in place. Temporary guardianship is in effect and agrees to DNR order 2. Sepsis due to Aspiration Pneumonia-resolved Still orally Intubated since 11/16 ( ET tube changed 12/09) on Vent (PVRC/AC 14/450 /5/35%) procalcitonin was elevated , intermittent fever Off Levophed, off all antibiotics, afebrile and WBc - normal trachea aspirate: positive for Citrobacter and 1 blood cx positive for Staph coag negative ( ? contaminant),repeat blood cultures negative completed IV antibiotic treatment with Cipro and Vanco - now off antibiotics ID consulted : Dr. Anderson Keep HOB elevated , aspiration, precautions,respiratory toilet with frequent suctioning CXR showed right pleural effusion 3. UTI-treated urine cx positive for Strep viridans - completed treatment with Vanco IV for 2 weeks 4. ? Alcoholism unclear if alcoholic, cannot obtain hx however ED note stated that patient has history of ETOH ETOH level low urine Tox : neg cont Thiamine and FA 5.DVT prophylaxis Acute Lovenox
[2017-12-24] MEDS: Ferrous Sulfate 300 mg/5 mL Liq UD PO SCH (08:31)
[2017-12-24] MEDS: Enoxaparin 40 mg Syringe SC SCH (22:42)
[2017-12-25 05:50] LABS: ABG ALLEN TEST YES; ARTERIAL BLOOD GAS HCO3 31.6 mmol/L (21-28); ARTERIAL BLOOD GAS HEMOGLOBIN 7.9 g/dL (11.7-17.4); ARTERIAL BLOOD GAS O2 CAPACITY 10.5 mL/dL (16-24); ARTERIAL BLOOD GAS O2 CONTENT 10.2 ML/dL (15-23); ARTERIAL BLOOD GAS O2 SAT 96.8 % (95-98); ARTERIAL BLOOD GAS PCO2 47 mm/Hg (35-45); ARTERIAL BLOOD GAS PH 7.46 (7.35-7.45); ARTERIAL BLOOD GAS PO2 56 mm/Hg (80-100); ARTERIAL BLOOD GAS TCO2 34.8 mmol/L (22-28)
[2017-12-25 06:10] LABS: HEMOGLOBIN 7.7 g/dL (12.0-18.0); MEAN CELL VOLUME 94.5 fl (80.0-94.0); MEAN CORPUSCULAR HEMOGLOBIN 31.2 pg (27.0-31.0); RBC 2.45 Mil/uL (4.40-5.90); RED CELL DISTRIBUTION WIDTH 18.8 % (11.5-14.5); WHITE BLOOD COUNT 8.4 K/uL (4.8-10.8)
[2017-12-25 06:26] LABS: BLOOD UREA NITROGEN 14 mg/dl (9-20); GFR AFRICAN-AMERICAN > 60; GFR NON-AFRICAN AMERICAN > 60
--- NOTE | 2017-12-25 07:08 | CP.PCM.PN ---
Subjective - Date & Time of Evaluation Date of Evaluation: 12/25/17 Time of Evaluation: 09:30 - Subjective Subjective: Patient seen and examined bedside. Comatose with no cornea reflex to right eye ? ,pupils fixed 4 mm bilaterally not responding to light stimuli, with gag reflex upon suctioning,breathing over the vent.Withdraws to painful stimuli ?? Intubated on MV PRVc Ac mode 14/450/5/35 % with ABG 47/56/31/7.4. With dark colored respiratory secretions upon suctioning . Changed vent settings to 16/450 /5/100% No acute events overnight BP 99/67 ( not on pressors ) Tmax 99.9 HR 81 OGT with 1.2 tiffany @ 60 ml/hr Objective - Vital Signs/Intake and Output Vital Signs (last 24 hours): Temp Pulse Resp BP Pulse Ox 99.1 F 89 19 132/71 99 12/25/17 04:00 12/25/17 06:00 12/25/17 06:00 12/25/17 06:00 12/25/17 06:00 Intake and Output: 12/25/17 12/25/17 06:59 18:59 Intake Total 870 Balance 870 - Medications Medications: Current Medications Acetaminophen (Tylenol 650mg/20.3ml Solution Ud) 650 mg PO Q6 PRN PRN Reason: fever > 100.4 Last Admin: 12/19/17 17:20 Dose: 650 mg Aspirin (Aspirin Chewable) 81 mg NG DAILY [facility] Last Admin: 12/24/17 08:31 Dose: 81 mg Atorvastatin Calcium (Lipitor) 40 mg PO HS [facility] Last Admin: 12/24/17 22:42 Dose: 40 mg Clopidogrel Bisulfate (Plavix) 75 mg NG DAILY [facility] Last Admin: 12/24/17 08:31 Dose: 75 mg Enoxaparin Sodium (Lovenox) 40 mg SC HS [facility] PRN Reason: Protocol Last Admin: 12/24/17 22:42 Dose: 40 mg Famotidine (Pepcid) 40 mg PO DAILY [facility] Last Admin: 12/24/17 08:32 Dose: 40 mg Ferrous Sulfate (Feosol Liq) 300 mg PO DAILY [facility] Last Admin: 12/24/17 08:31 Dose: 300 mg Folic Acid (Folic Acid) 1 mg GT DAILY [facility] Last Admin: 12/24/17 08:31 Dose: 1 mg Thiamine HCl (Vitamin B1 Tab) 100 mg NG DAILY [facility] Last Admin: 12/24/17 08:31 Dose: 100 mg - Labs Labs: 12/25/17 05:30 12/25/17 05:30 PT 14.1 Seconds (9.8-13.1) H 12/01/17 09:44 INR 1.3 (0.9-1.2) H 12/01/17 09:44 APTT 34.4 Seconds (25.6-37.1) 12/01/17 09:44 - Constitutional Appears: Other (comatose, intubated ) - Head Exam Head Exam: ATRAUMATIC, NORMOCEPHALIC - Eye Exam Pupil Exam: Fixed Additional comments: not responsive to light - ENT Exam ENT Exam: Mucous Membranes Dry - Neck Exam Neck Exam: Normal Inspection - Respiratory Exam Respiratory Exam: Rhonchi (diffuse bilaterally ). absent: Wheezes - Cardiovascular Exam Cardiovascular Exam: REGULAR RHYTHM, RRR, +S1, +S2. absent: JVD - GI/Abdominal Exam GI & Abdominal Exam: Soft, Normal Bowel Sounds. absent: Distended, Guarding, Rebound - Rectal Exam Rectal Exam: Deferred - Extremities Exam Extremities Exam: Normal Capillary Refill. absent: Pedal Edema - Neurological Exam Additional comments: comatose gag present pupils fixed not reactive to light - Skin Skin Exam: Dry, Warm Assessment and Plan - Assessment and Plan (Free Text) Assessment: 62 y/o White male , initially admitted as Tez White , now identified by Police as Jesus Grayson , unknown PMH was brought by EMS after he was observed by bystanders falling in the street. Patient was lethargic on admission however arousable , noted to have a facial droop and his speech was slurred. 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 He was transferred to ICU and intubated for airway protection. Repeat CT of head showed no change but MRI showed pontine, midbrain, cerebellar hemispheres and thalami infarct. 11/22: With episode of vomiting and possible aspiration became hypotensive, tachycardic, febrile, and hypoxemic Repeat CT head 11/28 showed :Gross edematous changes affect cerebellar hemispheres bilaterally sparing only the inferior margins somewhat and causing compression on the the mid to lower brainstem. The 4th ventricle is partially effaced but no obstructive hydrocephalus appreciated at this time. Edema has extend into the bilateral thalami, right greater than left further indicative of expanding infarction. No intracranial hemorrhage. Patient is comatose with no gag , no cornea no pupillary reflex Given patient's poor prognosis medical team following him has decided that it is appropriate to " not Escalate treatment " and DNR order placed. Ethics Committee meeting recommended Emergency guardianship which is in progress. Temporary guardians came to hospital 12/20 and received all information in regards to patient's medical condition and prognosis.They agreed to DNR order . 1. Acute CVA/ Coma state Patient is comatose , pupils fixed not reactive to light ,gag reflex present. Breaths over the vent and maintains his BP MRI brain showed pontine , midbrain, cerebellar hemispheres and thalamic infarct Repeat CT of head 11/28 showed :Gross edematous changes affect cerebellar hemispheres bilaterally sparing only the inferior margins somewhat and causing compression on the the mid to lower brainstem. The 4th ventricle is partially effaced but no obstructive hydrocephalus appreciated at this time. Edema has extend into the bilateral thalami, right greater than left further indicative of expanding infarction. No intracranial hemorrhage. Poor Prognosis Neurology on consult Continue ASA, Statin, Plavix [employer] network has been notified Given patient's poor prognosis medical team following him has decided a Do not Escalate treatment and DNR order in place. Temporary guardianship is in effect and agrees to DNR order 2. Sepsis due to Aspiration Pneumonia-resolved Still orally Intubated since 11/16 ( ET tube changed 12/09) on Vent (PVRC/AC 16/450 /5/100%) procalcitonin was elevated , intermittent fever Off Levophed, off all antibiotics, afebrile and WBc - normal trachea aspirate: positive for Citrobacter and 1 blood cx positive for Staph coag negative ( ? contaminant),repeat blood cultures negative completed IV antibiotic treatment with Cipro and Vanco - now off antibiotics ID consulted : Dr. Anderson Keep HOB elevated , aspiration, precautions,respiratory toilet with frequent suctioning CXR showed right pleural effusion 3. UTI-treated urine cx positive for Strep viridans - completed treatment with Vanco IV for 2 weeks 4. ? Alcoholism unclear if alcoholic, cannot obtain hx however ED note stated that patient has history of ETOH ETOH level low urine Tox : neg cont Thiamine and FA 5.DVT prophylaxis Acute Lovenox
--- NOTE | 2017-12-25 07:20 | CP.CCUPN ---
CCU Subjective - Physician Review Events Since Last Encounter (Free Text): Patient on ventilator, on PRVC TV 450, RR 14, Fio2 35%, no response to verbal stimuli, no pressors, on NG feeding, events reviewed CCU Objective - Vital Signs / Intake & Output Vital Signs (Last 4 hours): Vital Signs Temp Pulse Resp BP Pulse Ox 12/25/17 06:00 89 19 132/71 99 12/25/17 04:00 99.1 F 92 H 18 104/70 97 Intake and Output (Last 8hrs): Intake & Output 12/24/17 12/25/17 12/25/17 22:59 06:59 14:59 Intake Total 720 540 Output Total 200 Balance 520 540 Intake: Tube Feeding 420 240 Free Water Flush 300 300 Output: Urine 200 2-way Urethral 200 - Physical Exam Head: Positive for: Atraumatic, Normocephalic. Negative for: Ecchymosis, Abrasion, Laceration Pupils: Negative for: PERRL Extroacular Muscles: Negative for: EOMI Conjunctiva: Positive for: Normal. Negative for: Injected, Icteric Ears: Positive for: Normal Mouth: Positive for: Dry Pharnyx: Negative for: ERYTHEMA, EXUDATE, TONSILS ENLARGED Neck: Positive for: Trachea Midline. Negative for: JVD, Lymphadenopathy Respiratory/Chest: Positive for: Decreased Breath Sounds. Negative for: Clear to Auscultation ( distant breath sounds b/l), Rales, Retracting, Rhonchi Cardiovascular: Positive for: Regular Rate and Rhythm, Normal S1, S2, Peripheal Pulses Present (faint), Tachycardic. Negative for: Rub, Gallop Abdomen: Positive for: Normal Bowel Sounds. Negative for: Distention, Peritoneal Signs Upper Extremity: Negative for: Normal Inspection (Mild B/L hand edema), Cyanosis Lower Extremity: Negative for: Edema, NORMAL PULSES (faint), Swelling, Erythema , Temperature Abnormalties Neurological: Positive for: Other (on ventilator, no response to verbal stimuli) Skin: Positive for: Dry. Negative for: Laceration Lymphatic: Negative for: Cervical Adenopathy Psychiatric: Positive for: Other (comatose). Negative for: Alert, Oriented x 3 - Medications Active Medications: Active Medications Generic Name Dose Route Start Last Admin Trade Name Freq PRN Reason Stop Dose Admin Acetaminophen 650 mg 11/27/17 00:56 12/19/17 17:20 Tylenol 650mg/20.3ml Solution Ud PO 650 mg Q6 PRN Administration fever > 100.4 Aspirin 81 mg 11/19/17 09:00 12/24/17 08:31 Aspirin Chewable NG 81 mg DAILY [facility] Administration Atorvastatin Calcium 40 mg 11/17/17 22:00 12/24/17 22:42 Lipitor PO 40 mg HS [facility] Administration Clopidogrel Bisulfate 75 mg 11/18/17 09:45 12/24/17 08:31 Plavix NG 75 mg DAILY [facility] Administration Enoxaparin Sodium 40 mg 12/22/17 22:00 12/24/17 22:42 Lovenox SC 40 mg HS [facility] Administration Protocol Famotidine 40 mg 12/02/17 09:00 12/24/17 08:32 Pepcid PO 40 mg DAILY [facility] Administration Ferrous Sulfate 300 mg 12/18/17 09:00 12/24/17 08:31 Feosol Liq PO 300 mg DAILY [facility] Administration Folic Acid 1 mg 11/17/17 09:00 12/24/17 08:31 Folic Acid GT 1 mg DAILY [facility] Administration Thiamine HCl 100 mg 12/12/17 09:00 12/24/17 08:31 Vitamin B1 Tab NG 100 mg DAILY [facility] Administration - Patient Studies Lab Studies: Microbiology Studies 12/24/17 05:21 Blood Culture - Preliminary Blood-Thru Central Line NO GROWTH AFTER 24 HOURS 12/23/17 18:30 Gram Stain - Final Trachasp Lab Studies 12/25/17 12/25/17 12/25/17 Range/Units 05:44 05:30 05:30 WBC 8.4 (4.8-10.8) K/uL RBC 2.45 L (4.40-5.90) Mil/uL Hgb 7.7 L (12.0-18.0) g/dL Hct 23.2 L (35.0-51.0) % MCV 94.5 H (80.0-94.0) fl MCH 31.2 H (27.0-31.0) pg MCHC 33.0 (33.0-37.0) g/dL RDW 18.8 H (11.5-14.5) % Plt Count 252 (130-400) K/uL pCO2 47 H (35-45) mm/Hg pO2 56 L (80-100) mm/Hg HCO3 31.6 H (21-28) mmol/L ABG pH 7.46 H (7.35-7.45) ABG Total CO2 34.8 H (22-28) mmol/L ABG O2 Saturation 96.8 (95-98) % ABG O2 Content 10.2 L (15-23) ML/dL ABG Base Excess 8.7 H (-2.0-3.0) mmol/L ABG Hemoglobin 7.9 L (11.7-17.4) g/dL ABG Carboxyhemoglobin 3.9 H (0.5-1.5) % POC ABG HHb (Measured) 3.0 (0.0-5.0) % ABG Methemoglobin 1.9 (0.0-3.0) % ABG O2 Capacity 10.5 L (16-24) mL/dL Roberto Test Yes A-a O2 Difference 135.0 mm/Hg Hgb O2 Saturation 91.1 L (95.0-98.0) % Vent Mode A/c Mechanical Rate 14 FiO2 35.0 % Tidal Volume 450 PEEP 5 Sodium 135 (132-148) mmol/l Potassium 4.1 (3.6-5.0) MMOL/L Chloride 95 L (98-107) mmol/L Carbon Dioxide 31 H (22-30) mmol/L Anion Gap 13 (10-20) BUN 14 (9-20) mg/dl Creatinine 0.4 L (0.8-1.5) mg/dl Est GFR ( Amer) > 60 Est GFR (Non-Af Amer) > 60 Random Glucose 100 (75-110) mg/dL Calcium 8.0 L (8.4-10.2) mg/dL Blood Type Confirm 12/24/17 Range/Units 10:10 WBC (4.8-10.8) K/uL RBC (4.40-5.90) Mil/uL Hgb (12.0-18.0) g/dL Hct (35.0-51.0) % MCV (80.0-94.0) fl MCH (27.0-31.0) pg MCHC (33.0-37.0) g/dL RDW (11.5-14.5) % Plt Count (130-400) K/uL pCO2 (35-45) mm/Hg pO2 (80-100) mm/Hg HCO3 (21-28) mmol/L ABG pH (7.35-7.45) ABG Total CO2 (22-28) mmol/L ABG O2 Saturation (95-98) % ABG O2 Content (15-23) ML/dL ABG Base Excess (-2.0-3.0) mmol/L ABG Hemoglobin (11.7-17.4) g/dL ABG Carboxyhemoglobin (0.5-1.5) % POC ABG HHb (Measured) (0.0-5.0) % ABG Methemoglobin (0.0-3.0) % ABG O2 Capacity (16-24) mL/dL Roberto Test A-a O2 Difference mm/Hg Hgb O2 Saturation (95.0-98.0) % Vent Mode Mechanical Rate FiO2 % Tidal Volume PEEP Sodium (132-148) mmol/l Potassium (3.6-5.0) MMOL/L Chloride (98-107) mmol/L Carbon Dioxide (22-30) mmol/L Anion Gap (10-20) BUN (9-20) mg/dl Creatinine (0.8-1.5) mg/dl Est GFR ( Amer) Est GFR (Non-Af Amer) Random Glucose (75-110) mg/dL Calcium (8.4-10.2) mg/dL Blood Type Confirm O POSITIVE Laboratory Results - last 24 hr 12/24/17 12/25/17 12/25/17 10:10 05:30 05:30 WBC 8.4 RBC 2.45 L Hgb 7.7 L Hct 23.2 L MCV 94.5 H MCH 31.2 H MCHC 33.0 RDW 18.8 H Plt Count 252 pCO2 pO2 HCO3 ABG pH ABG Total CO2 ABG O2 Saturation ABG O2 Content ABG Base Excess ABG Hemoglobin ABG Carboxyhemoglobin POC ABG HHb (Measured) ABG Methemoglobin ABG O2 Capacity Roberto Test A-a O2 Difference Hgb O2 Saturation Vent Mode Mechanical Rate FiO2 Tidal Volume PEEP Sodium 135 Potassium 4.1 Chloride 95 L Carbon Dioxide 31 H Anion Gap 13 BUN 14 Creatinine 0.4 L Est GFR ( Amer) > 60 Est GFR (Non-Af Amer) > 60 Random Glucose 100 Calcium 8.0 L Blood Type Confirm O POSITIVE 06/17/18 05:44 WBC RBC Hgb Hct MCV MCH MCHC RDW Plt Count pCO2 47 H pO2 56 L HCO3 31.6 H ABG pH 7.46 H ABG Total CO2 34.8 H ABG O2 Saturation 96.8 ABG O2 Content 10.2 L ABG Base Excess 8.7 H ABG Hemoglobin 7.9 L ABG Carboxyhemoglobin 3.9 H POC ABG HHb (Measured) 3.0 ABG Methemoglobin 1.9 ABG O2 Capacity 10.5 L Roberto Test Yes A-a O2 Difference 135.0 Hgb O2 Saturation 91.1 L Vent Mode A/c Mechanical Rate 14 FiO2 35.0 Tidal Volume 450 PEEP 5 Sodium Potassium Chloride Carbon Dioxide Anion Gap BUN Creatinine Est GFR ( Amer) Est GFR (Non-Af Amer) Random Glucose Calcium Blood Type Confirm Fingerstick Blood Sugar Results: 142 Assessment/Plan - Assessment and Plan (Free Text) Assessment: A/P Respiratory failure, CVA, HTN, s/p sepsis, possible h/o ETOH abuse, anemia - Ventilatory support - Pulmonary toilets - NG feeding - Continue meds
--- NOTE | 2017-12-25 08:17 | RAD ---
HISTORY: Intubated. COMPARISON: Portable chest 12/23/2017. FINDINGS: LUNGS: Endotracheal tube is unchanged in position with right central venous line now removed. No significant change in nasogastric tube placement grossly evident. Improved aeration is appreciate the right base with residual limited patchy density remaining. No left-sided infiltrate. PLEURA: Resolution of prior right pleural effusion. No pneumothorax bilaterally or left pleural effusion. CARDIOVASCULAR: Normal. OSSEOUS STRUCTURES: No significant abnormalities. VISUALIZED UPPER ABDOMEN: Normal. OTHER FINDINGS: None. IMPRESSION: Improved aeration right base with trace residual patchy density remaining. No pleural effusion. Removal of right center venous line apparent.
[2017-12-25] MEDS: Ferrous Sulfate 300 mg/5 mL Liq UD PO SCH (08:22)
[2017-12-25] MEDS: Enoxaparin 40 mg Syringe SC SCH (21:38)
[2017-12-26 05:38] LABS: HEMOGLOBIN 8.1 g/dL (12.0-18.0); MEAN CELL VOLUME 94.8 fl (80.0-94.0); MEAN CORPUSCULAR HEMOGLOBIN 30.9 pg (27.0-31.0); MEAN CORPUSCULAR HGB CONC 32.6 g/dL (33.0-37.0); RBC 2.62 Mil/uL (4.40-5.90); RED CELL DISTRIBUTION WIDTH 18.6 % (11.5-14.5); WHITE BLOOD COUNT 15.6 K/uL (4.8-10.8)
[2017-12-26 05:38] LABS: ABG ALLEN TEST YES; ARTERIAL BLOOD GAS HCO3 32.5 mmol/L (21-28); ARTERIAL BLOOD GAS O2 CAPACITY 11.1 mL/dL (16-24); ARTERIAL BLOOD GAS O2 CONTENT 11.1 ML/dL (15-23); ARTERIAL BLOOD GAS PCO2 50 mm/Hg (35-45); ARTERIAL BLOOD GAS PH 7.45 (7.35-7.45); ARTERIAL BLOOD GAS PO2 119 mm/Hg (80-100); ARTERIAL BLOOD GAS TCO2 36.3 mmol/L (22-28)
[2017-12-26 05:45] LABS: BLOOD UREA NITROGEN 14 mg/dl (9-20); CALCIUM 7.9 mg/dL (8.4-10.2); GFR AFRICAN-AMERICAN > 60; GFR NON-AFRICAN AMERICAN > 60
--- NOTE | 2017-12-26 08:25 | RAD ---
HISTORY: intubated. COMPARISON: Portable chest 12/25/2017. FINDINGS: Endotracheal and nasogastric tubes do not appear significantly changed in position. LUNGS: There is complete opacification of the left lung in the interval, likely is a function of postobstructive atelectasis. The left mainstem bronchus appears attenuated distally. Further clinical correlation is recommended. No right-sided infiltrate identified at this time. PLEURA: No significant right pleural effusion identified, no pneumothorax apparent, bilaterally. CARDIOVASCULAR: Right-sided vascular pattern appears normal. Left heart border and left pulmonary vascular completely silhouetted by diffuse left-sided pulmonary opacity. OSSEOUS STRUCTURES: No significant abnormalities. VISUALIZED UPPER ABDOMEN: Normal. OTHER FINDINGS: None. IMPRESSION: Complete opacification of the left lung is appreciated, likely is a function of postobstructive atelectasis. Underlying pneumonia or pleural effusion not excluded. Right chest is clear. I discussed the findings with Dr. Finn with written down and read back verification, 12/26/2017 8:17 a.m.. Further, the technologist capturing this examination discussed the findings with Nurse Gibson 12/26/2017 4:38 a.m. as per tech note in PACs.
[2017-12-26] MEDS: Ferrous Sulfate 300 mg/5 mL Liq UD PO SCH (08:36)
--- NOTE | 2017-12-26 11:26 | CP.PCM.PN ---
Subjective - Date & Time of Evaluation Date of Evaluation: 12/26/17 Time of Evaluation: 11:00 - Subjective Subjective: Low grade fever yesterday, no fever so far today Remains Intubated , on the [facility] Vent- Fio2 increased to 50% CXR showed Atelectasis of the left lung- ? mucus plugging - suctioning done Tolerating tube feeding Objective - Vital Signs/Intake and Output Vital Signs (last 24 hours): Temp Pulse Resp BP Pulse Ox 98.3 F 84 18 101/60 100 12/26/17 08:00 12/26/17 10:00 12/26/17 10:00 12/26/17 10:00 12/26/17 10:00 Intake and Output: 12/26/17 12/26/17 06:59 18:59 Intake Total 1870 330 Output Total 1200 80 Balance 670 250 - Medications Medications: Current Medications Acetaminophen (Tylenol 650mg/20.3ml Solution Ud) 650 mg PO Q6 PRN PRN Reason: fever > 100.4 Last Admin: 12/19/17 17:20 Dose: 650 mg Aspirin (Aspirin Chewable) 81 mg NG DAILY [facility] Last Admin: 12/26/17 08:36 Dose: 81 mg Atorvastatin Calcium (Lipitor) 40 mg PO HS [facility] Last Admin: 12/25/17 21:38 Dose: 40 mg Clopidogrel Bisulfate (Plavix) 75 mg NG DAILY [facility] Last Admin: 12/26/17 08:36 Dose: 75 mg Enoxaparin Sodium (Lovenox) 40 mg SC HS [facility] PRN Reason: Protocol Last Admin: 12/25/17 21:38 Dose: 40 mg Famotidine (Pepcid) 40 mg PO DAILY [facility] Last Admin: 12/26/17 08:37 Dose: 40 mg Ferrous Sulfate (Feosol Liq) 300 mg PO DAILY [facility] Last Admin: 12/26/17 08:36 Dose: 300 mg Folic Acid (Folic Acid) 1 mg GT DAILY [facility] Last Admin: 12/26/17 08:36 Dose: 1 mg Ampicillin Sodium/Sulbactam (Sodium 1.5 gm/ Sodium Chloride) 100 mls @ 100 mls/ hr IVPB Q6 ZIA PRN Reason: Protocol Thiamine HCl (Vitamin B1 Tab) 100 mg NG DAILY [facility] Last Admin: 12/26/17 08:36 Dose: 100 mg - Labs Labs: 12/26/17 04:35 12/26/17 04:35 PT 14.1 Seconds (9.8-13.1) H 12/01/17 09:44 INR 1.3 (0.9-1.2) H 12/01/17 09:44 APTT 34.4 Seconds (25.6-37.1) 12/01/17 09:44 - Constitutional Appears: chronically ill, Intubated on Vent - Head Exam Head Exam: NORMAL INSPECTION, NORMOCEPHALIC - Eye Exam Eye Exam: Pupil Exam: Fixed, 4mm, not reactive to light - ENT Exam ENT Exam: Mucous Membranes Dry, Normal External Ear Exam - Neck Exam Neck Exam: absent: Meningismus - Respiratory Exam Respiratory Exam: Rhonchi, coarse rales Additional comments: Intubated on Vent - Cardiovascular Exam Cardiovascular Exam: REGULAR RHYTHM, +S1, +S2 - GI/Abdominal Exam GI & Abdominal Exam: Soft, Normal Bowel Sounds OGT in place - Extremities Exam Extremities Exam: Pedal Edema, edematous upper ext - Neurological Exam Additional comments: responds to deep pain by sl movement fixed pupils no gag reflex breathes over the Vent Assessment and Plan (1) Acute CVA (cerebrovascular accident) Status: Acute (2) Altered mental status Status: Acute (3) Slurring of speech Status: Acute (4) HTN (hypertension) Status: Chronic (5) Acute metabolic encephalopathy Status: Acute (6) Acute respiratory insufficiency Status: Acute (7) DVT prophylaxis Status: Acute - Assessment and Plan (Free Text) Assessment: 62 y/o White male , initially admitted as Tez White , now identified by Police as Jesus Grayson , unknown PMH was brought by EMS after he was observed by bystanders falling in the street. Patient was lethargic on admission however arousable , noted to have a facial droop and his speech was slurred. 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 He was transferred to ICU and intubated for airway protection. Repeat CT of head showed no change but MRI showed pontine, midbrain, cerebellar hemispheres and thalami infarct. 11/22: With episode of vomiting and possible aspiration became hypotensive, tachycardic, febrile, and hypoxemic Repeat CT head 11/28 showed :Gross edematous changes affect cerebellar hemispheres bilaterally sparing only the inferior margins somewhat and causing compression on the the mid to lower brainstem. The 4th ventricle is partially effaced but no obstructive hydrocephalus appreciated at this time. Edema has extend into the bilateral thalami, right greater than left further indicative of expanding infarction. No intracranial hemorrhage. Patient is comatose with no gag , no cornea no pupillary reflex Given patient's poor prognosis medical team following him has decided that it is appropriate to " not Escalate treatment " and DNR order placed. Ethics Committee meeting recommended Emergency guardianship which is in progress. Temporary guardians came to hospital 12/20 and received all information in regards to patient's medical condition and prognosis.They agreed to DNR order . 1. Acute CVA/ Coma state Patient is comatose , pupils fixed not reactive to light ,gag reflex present. Breaths over the vent and maintains his BP MRI brain showed pontine , midbrain, cerebellar hemispheres and thalamic infarct Repeat CT of head 11/28 showed :Gross edematous changes affect cerebellar hemispheres bilaterally sparing only the inferior margins somewhat and causing compression on the the mid to lower brainstem. The 4th ventricle is partially effaced but no obstructive hydrocephalus appreciated at this time. Edema has extend into the bilateral thalami, right greater than left further indicative of expanding infarction. No intracranial hemorrhage. Poor Prognosis Neurology on consult Continue ASA, Statin, Plavix [facility] network has been notified Given patient's poor prognosis medical team following him has decided a Do not Escalate treatment and DNR order in place. Temporary guardianship is in effect and agrees to DNR order -if pt remains comatose and unlikely to wake up, will discuss Withdrawal of care/terminal extubation with Guardian. Discussed this with Neuro - rec to rpt CT of Head 2. Sepsis due to Aspiration Pneumonia-resolved Still orally Intubated since 11/16 ( ET tube changed 12/09) on Vent (PVRC/AC 16/450 /5/100%) procalcitonin was elevated , intermittent fever Off Levophed, off all antibiotics, afebrile and WBc - normal trachea aspirate: positive for Citrobacter and 1 blood cx positive for Staph coag negative ( ? contaminant),repeat blood cultures negative completed IV antibiotic treatment with Cipro and Vanco - now off antibiotics ID consulted : Dr. Anderson Keep HOB elevated , aspiration, precautions,respiratory toilet with frequent suctioning CXR showed right pleural effusion 3. Atelectasis , left lung likely from mucus plugging CXR shows whole left lung white out Trach Asp C/S: Beta hemolytic Strep- Unasyn started by Dr Finn Deep suctioning by Resp team 4. UTI-treated urine cx positive for Strep viridans - completed treatment with Vanco IV for 2 weeks 5. ? Alcoholism unclear if alcoholic, cannot obtain hx however ED note stated that patient has history of ETOH ETOH level low urine Tox : neg cont Thiamine and FA DVT prophylaxis Acute Lovenox
--- NOTE | 2017-12-26 13:10 | CT ---
PROCEDURE: CT HEAD WITHOUT CONTRAST. HISTORY: Follow-up CVA COMPARISON: Comparison made with prior CT scan brain dated 12/06/2017. TECHNIQUE: Contiguous helical/transaxial computed tomography images were obtained through the head/brain without intravenous contrast. Radiation dose: Total exam DLP = 1126.77 mGy-cm. This CT exam was performed using one or more of the following dose reduction techniques: Automated exposure control, adjustment of the mA and/or kV according to patient size, and/or use of iterative reconstruction technique. . FINDINGS: HEMORRHAGE: No intracranial hemorrhage. BRAIN: Interval evolution previously noted of large acute infarct which involves keshia in both cerebellar hemispheres including vermis. There also has been interval evolution of posterior bilateral basal nuclei ischemic changes Diffuse/confluent chronic periventricular white matter ischemic changes extending peripherally into the deep and subcortical white matter both cerebral hemispheres. In addition, there are multiple additional chronic appearing bilateral basal nuclei lacunar type infarcts also seen. Vascular calcifications both carotid siphons. VENTRICLES: There is persistent dilatation of the temporal horns and atria bilaterally likely due to asymmetric central volume loss most pronounced in the posterior temporal lobes and occipital parietal regions CALVARIUM: Calvarium intact PARANASAL SINUSES: Mild mucosal thickening both maxillary antra multiple ethmoid air cells and sphenoid sinus left, left chamber greater than right. MASTOID AIR CELLS: Unremarkable as visualized. No inflammatory changes. Complete opacification both mastoid air complexes and right middle ear canal. There is subtotal opacification left middle ear canal. OTHER FINDINGS: Old fracture deformity left lamina papyracea unchanged. In situ ETT IMPRESSION: Interval evolution previously noted of large acute infarct which involves keshia in both cerebellar hemispheres including vermis. There also has been interval evolution of posterior bilateral basal nuclei ischemic changes Diffuse/confluent chronic periventricular white matter ischemic changes extending peripherally into the deep and subcortical white matter both cerebral hemispheres. In addition, there are multiple additional chronic appearing bilateral basal nuclei lacunar type infarcts also seen. There is persistent dilatation of the temporal horns and atria bilaterally likely due to asymmetric central volume loss most pronounced in the posterior temporal lobes and occipital parietal regions
[2017-12-26] MEDS ORDERED: Potassium Chloride 20 mEq 100 ML IVPB ONE (20:39)
[2017-12-26] MEDS: Enoxaparin 40 mg Syringe SC SCH (21:05)
--- NOTE | 2017-12-27 00:11 | PN ---
DATE: 12/26/2017 CRITICAL CARE PROGRESS NOTE LOCATION: The patient in ICU bed 435. TIME SPENT: 35 minutes. The patient is seen and evaluated at the bedside. Past medical, surgical, family and social history as noted in the H and P, and subsequent clinical course reviewed. SUBJECTIVE: A 62-year-old male admitted with extensive CVA involving putamen, thalamus, midbrain, and cerebellum, intubated on mechanical ventilation for airway protection. Remains comatose with no response to verbal or painful stimuli. Overnight normotensive, low-grade temperature. Chest x-ray this morning showed complete collapse of left lung. PHYSICAL EXAMINATION: VITAL SIGNS: Temperature 98.3, heart rate 84 and regular, blood pressure 101/60, mean arterial pressure 73, oxygen saturation 100%. Intake 2980, output 1725, positive balance is 1255. Weight 142 pounds. On AC/PRVC rate of 16, tidal volume 415, minute ventilation of 7.4 liters, on FiO2 50%, saturating 100%. Peak airway pressure 21. End-tidal CO2 is 45. HEAD, EYES, EARS, NOSE AND THROAT: Pupils are 4 mm, midline, nonreactive. No corneal reflex. No conjunctival reflex. No gag reflex. LUNGS: Bilateral breath sounds, reduced on the left compared to right. Fine crepitations at the bases. HEART: Rhythm regular. S1 and S1 normal. No audible murmur. ABDOMEN: Bowel sounds present, soft. Liver and spleen not palpable. Bladder not distended. EXTREMITIES: With trace edema. SKIN: Without rash. NEUROLOGIC: Remains comatose. No significant change from yesterday. CURRENT MEDICATIONS: Include Tylenol 650 every 6 hours p.r.n., aspirin 81 mg NG daily, Lipitor 40 mg daily, Plavix 75 mg daily, Lovenox 40 mg subcu daily, Pepcid 40 mg daily, ferrous sulfate 300 mg p.o. daily, folic acid 1 mg daily, thiamine 100 mg NG daily. LABORATORY DATA: WBC 15.6, hemoglobin 8.1, hematocrit 24.8, and platelet count of 239. PT 14.1, INR 1.3, PTT 34.4. ABG: The pH of 7.45, pCO2 of 15, pO2 119, oxygen saturation 100%, on AC/PRVC rate of 16, 450, 100% with a PEEP of 5. SMA-7: Sodium 147, potassium 3.8, chloride 97, blood urea nitrogen 14, creatinine 0.4, random glucose 104, calcium 7.9. Urinalysis: Rbc's 18, wbc's 2. Serology: RPR negative, hepatitis surface HSV-1 IgG antibody 26.40, HSV-2 IgG less than 0.90, HIV nonreactive. Chest x-ray done this morning: Endotracheal tube in place. Silhouette of the heart with complete opacification of the left lung consistent with obstructive atelectasis. Microbiology: Sputum culture drawn on 12/23/2017 consistent with beta-hemolytic Streptococcus group B sensitive to amoxicillin. IMPRESSION: 1. Neurologic: No significant change in patient's mental status. Remains comatose with no brainstem reflexes. 2. Fluctuating blood pressure, on pressors. 3. Pulmonary: Ventilator-dependent respiratory failure, status post complete white-out left lung probably related to mucus plug, on unilateral directional coude catheter to clear off the mucus plug. If not successful, may need bronchoscopy and lavage. Continue DuoNeb with Mucomyst. 4. Cardiac: History of hypertension, controlled on current medications. 5. Gastrointestinal: No acute issues noted. 6. Hematology: Anemia of chronic disease. No active gastrointestinal bleeding. Continue gastrointestinal prophylaxis. 7. Renal: No acute issues. 8. Infectious Disease: Status post mucus plug of left lung. Sputum culture grew hemolytic Streptococcus group B, sensitive to amoxicillin. We will add amoxicillin 1.25 gm every 6 hours. The patient's clinical condition remains guarded, poor prognosis, being on the ventilator for more than 30 days. We would recommend discussion with temporary care decision maker for terminal extubation and if not, then consider tracheostomy and PEG insertion. Raul Finn MD [facility]
[2017-12-27 05:09] LABS: ABG ALLEN TEST YES; ARTERIAL BLOOD GAS HCO3 37.1 mmol/L (21-28); ARTERIAL BLOOD GAS HEMOGLOBIN 7.4 g/dL (11.7-17.4); ARTERIAL BLOOD GAS O2 CAPACITY 10.3 mL/dL (16-24); ARTERIAL BLOOD GAS O2 CONTENT 10.4 ML/dL (15-23); ARTERIAL BLOOD GAS O2 SAT 100.7 % (95-98); ARTERIAL BLOOD GAS PCO2 53 mm/Hg (35-45); ARTERIAL BLOOD GAS PH 7.49 (7.35-7.45); ARTERIAL BLOOD GAS PO2 111 mm/Hg (80-100)
[2017-12-27 05:35] LABS: BASO # 0.1 K/uL (0.0-0.2); BASO % 0.4 % (0.0-2.0); EOS # 0.2 K/uL (0.0-0.7); EOS % 1.9 % (0.0-4.0); HEMOGLOBIN 7.7 g/dL (12.0-18.0); LYMPH # 1.5 K/uL (1.0-4.3); LYMPH % 12.8 % (20.0-40.0); MEAN CELL VOLUME 94.8 fl (80.0-94.0); MEAN CORPUSCULAR HEMOGLOBIN 30.5 pg (27.0-31.0); MEAN CORPUSCULAR HGB CONC 32.2 g/dL (33.0-37.0); MONO # 1.6 K/uL (0.0-0.8); MONO % 13.8 % (0.0-10.0); NEUT # 8.4 K/uL (1.8-7.0); NEUT % 71.1 % (50.0-75.0); RBC 2.51 Mil/uL (4.40-5.90); WHITE BLOOD COUNT 11.8 K/uL (4.8-10.8)
[2017-12-27 05:49] LABS: BLOOD UREA NITROGEN 14 mg/dl (9-20); CALCIUM 8.1 mg/dL (8.4-10.2); GFR AFRICAN-AMERICAN > 60; GFR NON-AFRICAN AMERICAN > 60
[2017-12-27] MEDS: Ferrous Sulfate 300 mg/5 mL Liq UD PO SCH (08:18)
[2017-12-27] MEDS ORDERED: Chlorhexidine Gluconate 1 APPL/PKT TP ONE (09:41)
--- NOTE | 2017-12-27 10:32 | RAD ---
HISTORY: ETT placement COMPARISON: 12/26/2017 FINDINGS: LUNGS: Patchy opacity left upper/ paramediastinal. Possible pneumonia or residual atelectasis. There is also abnormal opacity at the left base with silhouetting of left hemidiaphragm. Again, possible pneumonia versus residual atelectasis. PLEURA: Small left pleural effusion. No pneumothorax. CARDIOVASCULAR: Endotracheal tube and nasogastric tube unchanged. OSSEOUS STRUCTURES: No significant abnormalities. VISUALIZED UPPER ABDOMEN: Normal. OTHER FINDINGS: None. IMPRESSION: Re- aeration of left lung with residual opacity left upper paramediastinal and left base. Small left pleural effusion. ET tube and NG tube unchanged.
--- NOTE | 2017-12-27 10:32 | CP.CCUPN ---
<Matthieu Duncan - Last Filed: 12/27/17 10:35> CCU Subjective - Physician Review Subjective (Free Text): 12/27/17 10:30 Patient seen at bedside, unresponsive, intubated and mechanically ventilated. Weak cough reflex present. Fluctuating temps with last 99.7. Repeated CXR this morning interval improvement of left lung opacity. Patient on abx for + Strep in trach aspiration. CCU Objective - Vital Signs / Intake & Output Vital Signs (Last 4 hours): Vital Signs Temp Pulse Resp BP Pulse Ox 12/27/17 10:00 89 16 119/76 100 12/27/17 08:00 99.7 F H 95 H 16 95/54 L 100 Intake and Output (Last 8hrs): Intake & Output 12/26/17 12/27/17 12/27/17 22:59 06:59 14:59 Intake Total 860 780 310 Output Total 135 500 Balance 725 280 310 Weight 155 lb Intake: Intake, Piggyback 200 100 Tube Feeding 510 480 60 Free Water Flush 150 300 150 Output: Urine 135 500 2-way Urethral 135 500 - Physical Exam Head: Positive for: Atraumatic, Normocephalic. Negative for: Ecchymosis, Abrasion, Laceration Pupils: Negative for: PERRL Extroacular Muscles: Negative for: EOMI Conjunctiva: Positive for: Normal. Negative for: Injected, Icteric Ears: Positive for: Normal Mouth: Positive for: Dry Pharnyx: Negative for: ERYTHEMA, EXUDATE, TONSILS ENLARGED Neck: Positive for: Trachea Midline. Negative for: JVD, Lymphadenopathy Respiratory/Chest: Positive for: Decreased Breath Sounds. Negative for: Clear to Auscultation ( distant breath sounds b/l), Rales, Retracting, Rhonchi Cardiovascular: Positive for: Regular Rate and Rhythm, Normal S1, S2, Peripheal Pulses Present (faint), Tachycardic. Negative for: Rub, Gallop Abdomen: Positive for: Normal Bowel Sounds. Negative for: Distention, Peritoneal Signs Upper Extremity: Negative for: Normal Inspection (Mild B/L hand edema), Cyanosis Lower Extremity: Negative for: Edema, NORMAL PULSES (faint), Swelling, Erythema , Temperature Abnormalties Neurological: Positive for: Other (on ventilator, no response to verbal stimuli) Skin: Positive for: Dry. Negative for: Laceration Lymphatic: Negative for: Cervical Adenopathy Psychiatric: Positive for: Other (comatose). Negative for: Alert, Oriented x 3 - Medications Active Medications: Active Medications Generic Name Dose Route Start Last Admin Trade Name Freq PRN Reason Stop Dose Admin Acetaminophen 650 mg 11/27/17 00:56 12/19/17 17:20 Tylenol 650mg/20.3ml Solution Ud PO 650 mg Q6 PRN Administration fever > 100.4 Aspirin 81 mg 11/19/17 09:00 12/27/17 08:19 Aspirin Chewable NG 81 mg DAILY [facility]IA Administration Atorvastatin Calcium 40 mg 11/17/17 22:00 12/26/17 21:05 Lipitor PO 40 mg HS [facility]IA Administration Clopidogrel Bisulfate 75 mg 11/18/17 09:45 12/27/17 08:18 Plavix NG 75 mg DAILY [facility]IA Administration Enoxaparin Sodium 40 mg 12/22/17 22:00 12/26/17 21:05 Lovenox SC 40 mg HS ZIA Administration Protocol Famotidine 40 mg 12/02/17 09:00 12/27/17 08:19 Pepcid PO 40 mg DAILY [facility]IA Administration Ferrous Sulfate 300 mg 12/18/17 09:00 12/27/17 08:18 Feosol Liq PO 300 mg DAILY [facility]IA Administration Folic Acid 1 mg 11/17/17 09:00 12/27/17 08:19 Folic Acid GT 1 mg DAILY [facility] Administration Ampicillin Sodium/Sulbactam 100 mls @ 100 mls/hr 12/26/17 16:00 12/27/17 09: 13 Sodium 1.5 gm/ Sodium Chloride IVPB 100 mls/hr Q6 [facility]IA Administration Protocol Thiamine HCl 100 mg 12/12/17 09:00 12/27/17 08:18 Vitamin B1 Tab NG 100 mg DAILY [facility]IA Administration - Patient Studies Lab Studies: Microbiology Studies 12/24/17 05:21 Blood Culture - Preliminary Blood-Thru Central Line NO GROWTH AFTER 3 DAYS 12/23/17 18:30 Gram Stain - Final Trachasp Sputum Culture - Final Beta Hemolytic Strep Group B Lab Studies 12/27/17 12/27/17 12/27/17 Range/Units 05:06 05:00 05:00 WBC 11.8 H (4.8-10.8) K/uL RBC 2.51 L (4.40-5.90) Mil/uL Hgb 7.7 L (12.0-18.0) g/dL Hct 23.8 L (35.0-51.0) % MCV 94.8 H (80.0-94.0) fl MCH 30.5 (27.0-31.0) pg MCHC 32.2 L (33.0-37.0) g/dL RDW 19.0 H (11.5-14.5) % Plt Count 237 (130-400) K/uL MPV 8.0 (7.2-11.7) fl Neut % (Auto) 71.1 (50.0-75.0) % Lymph % (Auto) 12.8 L (20.0-40.0) % [place] % (Auto) 13.8 H (0.0-10.0) % Eos % (Auto) 1.9 (0.0-4.0) % Baso % (Auto) 0.4 (0.0-2.0) % Neut # (Auto) 8.4 H (1.8-7.0) K/uL Lymph # (Auto) 1.5 (1.0-4.3) K/uL [place] # (Auto) 1.6 H (0.0-0.8) K/uL Eos # (Auto) 0.2 (0.0-0.7) K/uL Baso # (Auto) 0.1 (0.0-0.2) K/uL pCO2 53 H (35-45) mm/Hg pO2 111 H (80-100) mm/Hg HCO3 37.1 H (21-28) mmol/L ABG pH 7.49 H (7.35-7.45) ABG Total CO2 42.0 H (22-28) mmol/L ABG O2 Saturation 100.7 H (95-98) % ABG O2 Content 10.4 L (15-23) ML/dL ABG Base Excess 15.5 H (-2.0-3.0) mmol/L ABG Hemoglobin 7.4 L (11.7-17.4) g/dL ABG Carboxyhemoglobin 2.3 H (0.5-1.5) % POC ABG HHb (Measured) -0.7 L (0.0-5.0) % ABG Methemoglobin 0.8 (0.0-3.0) % ABG O2 Capacity 10.3 L (16-24) mL/dL Roberto Test Yes A-a O2 Difference 179.0 mm/Hg Hgb O2 Saturation 97.6 (95.0-98.0) % Vent Mode A/c Mechanical Rate 16 FiO2 50.0 % Tidal Volume 450 PEEP 5 Sodium 138 (132-148) mmol/l Potassium 3.8 (3.6-5.0) MMOL/L Chloride 97 L (98-107) mmol/L Carbon Dioxide 32 H (22-30) mmol/L Anion Gap 13 (10-20) BUN 14 (9-20) mg/dl Creatinine 0.4 L (0.8-1.5) mg/dl Est GFR ( Amer) > 60 Est GFR (Non-Af Amer) > 60 Random Glucose 100 (75-110) mg/dL Calcium 8.1 L (8.4-10.2) mg/dL Laboratory Results - last 24 hr 12/27/17 12/27/17 12/27/17 05:00 05:00 05:06 WBC 11.8 H RBC 2.51 L Hgb 7.7 L Hct 23.8 L MCV 94.8 H MCH 30.5 MCHC 32.2 L RDW 19.0 H Plt Count 237 MPV 8.0 Neut % (Auto) 71.1 Lymph % (Auto) 12.8 L [place] % (Auto) 13.8 H Eos % (Auto) 1.9 Baso % (Auto) 0.4 Neut # (Auto) 8.4 H Lymph # (Auto) 1.5 [place] # (Auto) 1.6 H Eos # (Auto) 0.2 Baso # (Auto) 0.1 pCO2 53 H pO2 111 H HCO3 37.1 H ABG pH 7.49 H ABG Total CO2 42.0 H ABG O2 Saturation 100.7 H ABG O2 Content 10.4 L ABG Base Excess 15.5 H ABG Hemoglobin 7.4 L ABG Carboxyhemoglobin 2.3 H POC ABG HHb (Measured) -0.7 L ABG Methemoglobin 0.8 ABG O2 Capacity 10.3 L Roberto Test Yes A-a O2 Difference 179.0 Hgb O2 Saturation 97.6 Vent Mode A/c Mechanical Rate 16 FiO2 50.0 Tidal Volume 450 PEEP 5 Sodium 138 Potassium 3.8 Chloride 97 L Carbon Dioxide 32 H Anion Gap 13 BUN 14 Creatinine 0.4 L Est GFR ( Amer) > 60 Est GFR (Non-Af Amer) > 60 Random Glucose 100 Calcium 8.1 L Fingerstick Blood Sugar Results: 142 Review of Systems - Review of Systems Systems not reviewed;Unavailable: Acuity of Condition Critical Care Progress Note - Ventilator Checklist Head of Bed 30 Degrees: Yes Daily Sedation Vacation: No Daily Assessment of Readiness to Wean: No Daily Spontaneous Breathing Trial: No PUD Prophalyxis: Yes DVT Prophylaxis: Yes - Vent Settings MODE:: ASSIST CONTROL TIDAL VOLUME:: 450 RESP RATE:: 16 FIO2:: 50 PEEP:: 5 - Extremities/Vascular Does the Patient have a Central Venous Catheter?: Yes Does the Patient need a Central Venous Catheter?: Yes Does the Patient have a Holloway Catheter?: Yes Does the Patient need a Holloway Catheter?: Yes Catheter Insertion Criteria: Patient requires prolonged immobilization - Prophylaxis GI Prophylaxis GI: Pepsid - Prophylaxis DVT Prophylaxis DVT: Lovenox Assessment/Plan - Assessment and Plan (Free Text) Assessment: 63 y/o male, with unobtainable medical history, 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 Smaller cerebellar infarcts b/l -Repeated head CT: -Intubated. -GCS 4T -c/w respiratory support and tube feedings -C/W ASA and Plavix -poor prognosis/Ethic committee review. guardianship pending Respiratory Failure secondary CVA -2/2 to Acute CVA -intubated -C/W 16, Vt 450, FIO2 50, PEEP 5 -Monitor ABGs Left lung lobe atelectasis -Likely due to mucus plug. s/p suction -Markedly improved this AM -Monitor with daily CXR Strep + on tracheostomy secretions -C/w Unasyn IV -Mechanically ventilated Anemia of Unknown Etiology -Worse -No clinical evidence of acute bleeding -monitor H/H and VS Prophylaxis -Head of bed elevation @ 30 degrees -Pepcid 40 mg daily -Lovenox 40mg SC QD -SCDs <Raul Finn V - Last Filed: 12/27/17 14:57> CCU Subjective - Physician Review Events Since Last Encounter (Free Text): 12/27/17 14:56 patient is seen, examined at bedside Agree with plan of care as detailed in resident's note CCU Objective - Vital Signs / Intake & Output Vital Signs (Last 4 hours): Vital Signs Temp Pulse Resp BP Pulse Ox 12/27/17 14:00 100 H 17 113/64 100 12/27/17 12:00 99.8 F H 101 H 13 123/70 100 Intake and Output (Last 8hrs): Intake & Output 12/26/17 12/27/17 12/27/17 22:59 06:59 14:59 Intake Total 860 780 700 Output Total 135 500 Balance 725 280 700 Weight 155 lb Intake: Intake, Piggyback 200 100 Tube Feeding 510 480 300 Free Water Flush 150 300 300 Output: Urine 135 500 2-way Urethral 135 500 - Medications Active Medications: Active Medications Generic Name Dose Route Start Last Admin Trade Name Freq PRN Reason Stop Dose Admin Acetaminophen 650 mg 11/27/17 00:56 12/19/17 17:20 Tylenol 650mg/20.3ml Solution Ud PO 650 mg Q6 PRN Administration fever > 100.4 Aspirin 81 mg 11/19/17 09:00 12/27/17 08:19 Aspirin Chewable NG 81 mg DAILY [facility]IA Administration Atorvastatin Calcium 40 mg 11/17/17 22:00 12/26/17 21:05 Lipitor PO 40 mg HS ZIA Administration Clopidogrel Bisulfate 75 mg 11/18/17 09:45 12/27/17 08:18 Plavix NG 75 mg DAILY [facility]IA Administration Enoxaparin Sodium 40 mg 12/22/17 22:00 12/26/17 21:05 Lovenox SC 40 mg HS ZIA Administration Protocol Famotidine 40 mg 12/02/17 09:00 12/27/17 08:19 Pepcid PO 40 mg DAILY ZIA Administration Ferrous Sulfate 300 mg 12/18/17 09:00 12/27/17 08:18 Feosol Liq PO 300 mg DAILY ZIA Administration Folic Acid 1 mg 11/17/17 09:00 12/27/17 08:19 Folic Acid GT 1 mg DAILY [facility]IA Administration Ampicillin Sodium/Sulbactam 100 mls @ 100 mls/hr 12/26/17 16:00 12/27/17 09: 13 Sodium 1.5 gm/ Sodium Chloride IVPB 100 mls/hr Q6 ZIA Administration Protocol Thiamine HCl 100 mg 12/12/17 09:00 12/27/17 08:18 Vitamin B1 Tab NG 100 mg DAILY ZIA Administration - Patient Studies Lab Studies: Microbiology Studies 12/24/17 05:21 Blood Culture - Preliminary Blood-Thru Central Line NO GROWTH AFTER 3 DAYS Lab Studies 12/27/17 12/27/17 12/27/17 Range/Units 05:06 05:00 05:00 WBC 11.8 H (4.8-10.8) K/uL RBC 2.51 L (4.40-5.90) Mil/uL Hgb 7.7 L (12.0-18.0) g/dL Hct 23.8 L (35.0-51.0) % MCV 94.8 H (80.0-94.0) fl MCH 30.5 (27.0-31.0) pg MCHC 32.2 L (33.0-37.0) g/dL RDW 19.0 H (11.5-14.5) % Plt Count 237 (130-400) K/uL MPV 8.0 (7.2-11.7) fl Neut % (Auto) 71.1 (50.0-75.0) % Lymph % (Auto) 12.8 L (20.0-40.0) % [place] % (Auto) 13.8 H (0.0-10.0) % Eos % (Auto) 1.9 (0.0-4.0) % Baso % (Auto) 0.4 (0.0-2.0) % Neut # (Auto) 8.4 H (1.8-7.0) K/uL Lymph # (Auto) 1.5 (1.0-4.3) K/uL [place] # (Auto) 1.6 H (0.0-0.8) K/uL Eos # (Auto) 0.2 (0.0-0.7) K/uL Baso # (Auto) 0.1 (0.0-0.2) K/uL pCO2 53 H (35-45) mm/Hg pO2 111 H (80-100) mm/Hg HCO3 37.1 H (21-28) mmol/L ABG pH 7.49 H (7.35-7.45) ABG Total CO2 42.0 H (22-28) mmol/L ABG O2 Saturation 100.7 H (95-98) % ABG O2 Content 10.4 L (15-23) ML/dL ABG Base Excess 15.5 H (-2.0-3.0) mmol/L ABG Hemoglobin 7.4 L (11.7-17.4) g/dL ABG Carboxyhemoglobin 2.3 H (0.5-1.5) % POC ABG HHb (Measured) -0.7 L (0.0-5.0) % ABG Methemoglobin 0.8 (0.0-3.0) % ABG O2 Capacity 10.3 L (16-24) mL/dL Roberto Test Yes A-a O2 Difference 179.0 mm/Hg Hgb O2 Saturation 97.6 (95.0-98.0) % Vent Mode A/c Mechanical Rate 16 FiO2 50.0 % Tidal Volume 450 PEEP 5 Sodium 138 (132-148) mmol/l Potassium 3.8 (3.6-5.0) MMOL/L Chloride 97 L (98-107) mmol/L Carbon Dioxide 32 H (22-30) mmol/L Anion Gap 13 (10-20) BUN 14 (9-20) mg/dl Creatinine 0.4 L (0.8-1.5) mg/dl Est GFR ( Amer) > 60 Est GFR (Non-Af Amer) > 60 Random Glucose 100 (75-110) mg/dL Calcium 8.1 L (8.4-10.2) mg/dL Laboratory Results - last 24 hr 12/27/17 12/27/17 12/27/17 05:00 05:00 05:06 WBC 11.8 H RBC 2.51 L Hgb 7.7 L Hct 23.8 L MCV 94.8 H MCH 30.5 MCHC 32.2 L RDW 19.0 H Plt Count 237 MPV 8.0 Neut % (Auto) 71.1 Lymph % (Auto) 12.8 L [place] % (Auto) 13.8 H Eos % (Auto) 1.9 Baso % (Auto) 0.4 Neut # (Auto) 8.4 H Lymph # (Auto) 1.5 [place] # (Auto) 1.6 H Eos # (Auto) 0.2 Baso # (Auto) 0.1 pCO2 53 H pO2 111 H HCO3 37.1 H ABG pH 7.49 H ABG Total CO2 42.0 H ABG O2 Saturation 100.7 H ABG O2 Content 10.4 L ABG Base Excess 15.5 H ABG Hemoglobin 7.4 L ABG Carboxyhemoglobin 2.3 H POC ABG HHb (Measured) -0.7 L ABG Methemoglobin 0.8 ABG O2 Capacity 10.3 L Roberto Test Yes A-a O2 Difference 179.0 Hgb O2 Saturation 97.6 Vent Mode A/c Mechanical Rate 16 FiO2 50.0 Tidal Volume 450 PEEP 5 Sodium 138 Potassium 3.8 Chloride 97 L Carbon Dioxide 32 H Anion Gap 13 BUN 14 Creatinine 0.4 L Est GFR ( Amer) > 60 Est GFR (Non-Af Amer) > 60 Random Glucose 100 Calcium 8.1 L
--- NOTE | 2017-12-27 11:02 | CP.PCM.PN ---
Subjective - Date & Time of Evaluation Date of Evaluation: 12/27/17 Time of Evaluation: 11:00 - Subjective Subjective: Pt has low grade fever Remains intubated on Vent 24/11/4519/50% Pt suctioned and mucus plugging improved. CXR shows improvement Spoke with Temporary Guardian George Garland regarding pt's condition - Discussed poor prognosis and unlikehood that pt would have a meaningful life. Discussed if we could proceed with plan for Trach /PEG vs Withdrawal of Care - at present , she could not make a decision about this and would rather wait for the Public Guardian decide on this. Objective - Vital Signs/Intake and Output Vital Signs (last 24 hours): Temp Pulse Resp BP Pulse Ox 99.7 F H 89 16 119/76 100 12/27/17 08:00 12/27/17 10:00 12/27/17 10:00 12/27/17 10:00 12/27/17 10:00 Intake and Output: 12/27/17 12/27/17 06:59 18:59 Intake Total 1150 310 Output Total 500 Balance 650 310 - Medications Medications: Current Medications Acetaminophen (Tylenol 650mg/20.3ml Solution Ud) 650 mg PO Q6 PRN PRN Reason: fever > 100.4 Last Admin: 12/19/17 17:20 Dose: 650 mg Aspirin (Aspirin Chewable) 81 mg NG DAILY [facility] Last Admin: 12/27/17 08:19 Dose: 81 mg Atorvastatin Calcium (Lipitor) 40 mg PO HS [facility] Last Admin: 12/26/17 21:05 Dose: 40 mg Clopidogrel Bisulfate (Plavix) 75 mg NG DAILY [facility] Last Admin: 12/27/17 08:18 Dose: 75 mg Enoxaparin Sodium (Lovenox) 40 mg SC HS [facility] PRN Reason: Protocol Last Admin: 12/26/17 21:05 Dose: 40 mg Famotidine (Pepcid) 40 mg PO DAILY [facility] Last Admin: 12/27/17 08:19 Dose: 40 mg Ferrous Sulfate (Feosol Liq) 300 mg PO DAILY [facility] Last Admin: 12/27/17 08:18 Dose: 300 mg Folic Acid (Folic Acid) 1 mg GT DAILY [facility] Last Admin: 12/27/17 08:19 Dose: 1 mg Ampicillin Sodium/Sulbactam (Sodium 1.5 gm/ Sodium Chloride) 100 mls @ 100 mls/ hr IVPB Q6 [facility] PRN Reason: Protocol Last Admin: 12/27/17 09:13 Dose: 100 mls/hr Thiamine HCl (Vitamin B1 Tab) 100 mg NG DAILY [facility] Last Admin: 12/27/17 08:18 Dose: 100 mg - Labs Labs: 12/27/17 05:00 12/27/17 05:00 PT 14.1 Seconds (9.8-13.1) H 12/01/17 09:44 INR 1.3 (0.9-1.2) H 12/01/17 09:44 APTT 34.4 Seconds (25.6-37.1) 12/01/17 09:44 - Constitutional Appears: chronically ill, Intubated on Vent - Head Exam Head Exam: NORMAL INSPECTION, NORMOCEPHALIC - Eye Exam Eye Exam: Pupil Exam: Fixed, 4mm, not reactive to light - ENT Exam ENT Exam: Mucous Membranes Dry, Normal External Ear Exam - Neck Exam Neck Exam: absent: Meningismus - Respiratory Exam Respiratory Exam: Rhonchi, coarse rales Additional comments: Intubated on Vent - Cardiovascular Exam Cardiovascular Exam: REGULAR RHYTHM, +S1, +S2 - GI/Abdominal Exam GI & Abdominal Exam: Soft, Normal Bowel Sounds OGT in place - Extremities Exam Extremities Exam: Pedal Edema, edematous upper ext - Neurological Exam Additional comments: responds to deep pain by sl movement fixed pupils no gag reflex breathes over the Vent Assessment and Plan (1) Acute CVA (cerebrovascular accident) Status: Acute (2) Altered mental status Status: Acute (3) Slurring of speech Status: Acute (4) HTN (hypertension) Status: Chronic (5) Acute metabolic encephalopathy Status: Acute (6) Acute respiratory insufficiency Status: Acute (7) DVT prophylaxis Status: Acute - Assessment and Plan (Free Text) Assessment: 62 y/o White male , initially admitted as Tez White , now identified by Police as Jesus Grayson , unknown PMH was brought by EMS after he was observed by bystanders falling in the street. Patient was lethargic on admission however arousable , noted to have a facial droop and his speech was slurred. 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 He was transferred to ICU and intubated for airway protection. Repeat CT of head showed no change but MRI showed pontine, midbrain, cerebellar hemispheres and thalami infarct. 11/22: With episode of vomiting and possible aspiration became hypotensive, tachycardic, febrile, and hypoxemic Repeat CT head 11/28 showed :Gross edematous changes affect cerebellar hemispheres bilaterally sparing only the inferior margins somewhat and causing compression on the the mid to lower brainstem. The 4th ventricle is partially effaced but no obstructive hydrocephalus appreciated at this time. Edema has extend into the bilateral thalami, right greater than left further indicative of expanding infarction. No intracranial hemorrhage. Patient is comatose with no gag , no cornea no pupillary reflex Given patient's poor prognosis medical team following him has decided that it is appropriate to " not Escalate treatment " and DNR order placed. Ethics Committee meeting recommended Emergency guardianship which is in progress. Temporary guardians came to hospital 12/20 and received all information in regards to patient's medical condition and prognosis.They agreed to DNR order . 1. Acute CVA/ Coma state Patient is comatose , pupils fixed not reactive to light ,gag reflex present. Breaths over the vent and maintains his BP MRI brain showed pontine , midbrain, cerebellar hemispheres and thalamic infarct Repeat CT of head 11/28 showed :Gross edematous changes affect cerebellar hemispheres bilaterally sparing only the inferior margins somewhat and causing compression on the the mid to lower brainstem. The 4th ventricle is partially effaced but no obstructive hydrocephalus appreciated at this time. Edema has extend into the bilateral thalami, right greater than left further indicative of expanding infarction. No intracranial hemorrhage. Poor Prognosis Neurology on consult Continue ASA, Statin, Plavix [facility] network has been notified Given patient's poor prognosis medical team following him has decided a Do not Escalate treatment and DNR order in place. Temporary guardianship is in effect and agrees to DNR order Rpt CT of head 12/26 -Interval evolution previously noted of large acute infarct which involves keshia in both cerebellar hemispheres including vermis. There also has been interval evolution of posterior bilateral basal nuclei ischemic changes Diffuse/confluent chronic periventricular white matter ischemic changes extending peripherally into the deep and subcortical white matter both cerebral hemispheres. In addition, there are multiple additional chronic appearing bilateral basal nuclei lacunar type infarcts also seen. There is persistent dilatation of the temporal horns and atria bilaterally likely due to asymmetric central volume loss most pronounced in the posterior temporal lobes and occipital parietal regions Discussed case with Dr Mcneill - he does not feel that pt would improved or have meaningful life ahead- pt has extensive CVA , brain does not communicate with spinal cord. 12/27 : I spoke with Temporary Guardian- George Garland , given pt's very poor prognosis/comatose state , discussed plan for Trach/PEG vs withdrawal of care . Since she is not in the medical field and does not know pt, she would like to defer this decision and wait for the Public Guardianship to decide of these. 2. Sepsis due to Aspiration Pneumonia-resolved Still orally Intubated since 11/16 ( ET tube changed 12/09) on Vent (PVRC/AC 16/450 /5/100%) procalcitonin was elevated , intermittent fever Off Levophed, all antibiotics d/c trachea aspirate: positive for Citrobacter and 1 blood cx positive for Staph coag negative ( ? contaminant),repeat blood cultures negative completed IV antibiotic treatment with Cipro and Vanco - now off antibiotics ID consulted : Dr. Anderson Keep HOB elevated , aspiration, precautions,respiratory toilet with frequent suctioning CXR showed right pleural effusion rpt Trach Aspirate c/s : Beta hemolytic Strep - Unasyn started on 12/26 3. Atelectasis , left lung likely from mucus plugging CXR shows whole left lung white out Trach Asp C/S: Beta hemolytic Strep- Unasyn started by Dr Finn Deep suctioning by Resp team rpt CXR 12/27 - improved 4. UTI-treated urine cx positive for Strep viridans - completed treatment with Vanco IV for 2 weeks 5. ? Alcoholism unclear if alcoholic, cannot obtain hx however ED note stated that patient has history of ETOH ETOH level low urine Tox : neg cont Thiamine and FA DVT prophylaxis Acute Lovenox
[2017-12-27] MEDS: Enoxaparin 40 mg Syringe SC SCH (21:23)
[2017-12-27] MEDS: Acetaminophen 650mg/20.3ml solution UD PO PRN (21:23)
[2017-12-28 05:31] LABS: MEAN CELL VOLUME 95.2 fl (80.0-94.0); MEAN CORPUSCULAR HGB CONC 32.5 g/dL (33.0-37.0); RBC 2.59 Mil/uL (4.40-5.90); RED CELL DISTRIBUTION WIDTH 19.1 % (11.5-14.5); WHITE BLOOD COUNT 7.3 K/uL (4.8-10.8)
[2017-12-28 05:42] LABS: ABG ALLEN TEST YES; ARTERIAL BLOOD GAS HCO3 38.1 mmol/L (21-28); ARTERIAL BLOOD GAS HEMOGLOBIN 8.2 g/dL (11.7-17.4); ARTERIAL BLOOD GAS O2 CAPACITY 11.5 mL/dL (16-24); ARTERIAL BLOOD GAS O2 CONTENT 11.5 ML/dL (15-23); ARTERIAL BLOOD GAS PCO2 60 mm/Hg (35-45); ARTERIAL BLOOD GAS PH 7.46 (7.35-7.45); ARTERIAL BLOOD GAS PO2 156 mm/Hg (80-100); ARTERIAL BLOOD GAS TCO2 44.5 mmol/L (22-28)
[2017-12-28 06:17] LABS: BLOOD UREA NITROGEN 12 mg/dl (9-20); CALCIUM 8.1 mg/dL (8.4-10.2); GFR AFRICAN-AMERICAN > 60; GFR NON-AFRICAN AMERICAN > 60
[2017-12-28] MEDS: Ferrous Sulfate 300 mg/5 mL Liq UD PO SCH (08:25)
--- NOTE | 2017-12-28 09:55 | CP.CCUPN ---
<Matthieu Duncan - Last Filed: 12/28/17 10:07> CCU Subjective - Physician Review Subjective (Free Text): 12/28/17 09:52 Patient seen at bedside, unresponsive, intubated and mechanically ventilated. Weak cough reflex at times. Patient seen like squirming at times when stimulated. Corneal reflex present today. No pupillary response. Feeding through OG tube. CCU Objective - Vital Signs / Intake & Output Vital Signs (Last 4 hours): Vital Signs Temp Pulse Resp BP Pulse Ox 12/28/17 08:00 97.5 F L 90 20 120/63 100 12/28/17 06:00 86 18 119/67 100 Intake and Output (Last 8hrs): Intake & Output 12/27/17 12/28/17 12/28/17 22:59 06:59 14:59 Intake Total 730 250 210 Output Total 1000 1550 Balance -270 -1300 210 Intake: IV 0 0 Intake, Piggyback 200 100 Tube Feeding 240 60 Free Water Flush 290 150 150 Output: Urine 1000 1550 2-way Urethral 1000 1550 Other: # Bowel Movements 0 - Physical Exam Head: Positive for: Atraumatic, Normocephalic. Negative for: Ecchymosis, Abrasion, Laceration Pupils: Negative for: PERRL Extroacular Muscles: Negative for: EOMI Conjunctiva: Positive for: Normal. Negative for: Injected, Icteric Ears: Positive for: Normal Mouth: Positive for: Moist Mucous Membranes Pharnyx: Negative for: ERYTHEMA, EXUDATE, TONSILS ENLARGED Neck: Positive for: Trachea Midline. Negative for: JVD, Lymphadenopathy Respiratory/Chest: Positive for: Clear to Auscultation ( distant breath sounds b /l). Negative for: Rales, Retracting, Rhonchi Cardiovascular: Positive for: Regular Rate and Rhythm, Normal S1, S2, Peripheal Pulses Present (faint). Negative for: Rub, Gallop Abdomen: Positive for: Normal Bowel Sounds. Negative for: Distention, Peritoneal Signs Upper Extremity: Positive for: Capillary Refill < 2s. Negative for: Cyanosis, Erythema Lower Extremity: Negative for: Normal Inspection (DTI), Edema, NORMAL PULSES ( faint), Swelling, Temperature Abnormalties Neurological: Positive for: Other (on ventilator, no response to verbal stimuli) . Negative for: GCS=15 (4T), Speech Normal, Motor Func Grossly Intact, Normal Sensory Function Skin: Positive for: Dry. Negative for: Laceration Lymphatic: Negative for: Cervical Adenopathy Psychiatric: Positive for: Other (comatose). Negative for: Alert, Oriented x 3 - Medications Active Medications: Active Medications Generic Name Dose Route Start Last Admin Trade Name Freq PRN Reason Stop Dose Admin Acetaminophen 650 mg 11/27/17 00:56 12/27/17 21:23 Tylenol 650mg/20.3ml Solution Ud PO 650 mg Q6 PRN Administration fever > 100.4 Aspirin 81 mg 11/19/17 09:00 12/28/17 08:25 Aspirin Chewable NG 81 mg DAILY [facility] Administration Atorvastatin Calcium 40 mg 11/17/17 22:00 12/27/17 21:23 Lipitor PO 40 mg HS [facility]IA Administration Clopidogrel Bisulfate 75 mg 11/18/17 09:45 12/28/17 08:25 Plavix NG 75 mg DAILY [facility] Administration Enoxaparin Sodium 40 mg 12/22/17 22:00 12/27/17 21:23 Lovenox SC 40 mg HS [facility]IA Administration Protocol Famotidine 40 mg 12/02/17 09:00 12/28/17 08:26 Pepcid PO 40 mg DAILY [facility] Administration Ferrous Sulfate 300 mg 12/18/17 09:00 12/28/17 08:25 Feosol Liq PO 300 mg DAILY [facility] Administration Folic Acid 1 mg 11/17/17 09:00 12/28/17 08:25 Folic Acid GT 1 mg DAILY [facility] Administration Ampicillin Sodium/Sulbactam 100 mls @ 100 mls/hr 12/26/17 16:00 12/28/17 09: 14 Sodium 1.5 gm/ Sodium Chloride IVPB 100 mls/hr Q6 [facility] Administration Protocol Thiamine HCl 100 mg 12/12/17 09:00 12/28/17 08:25 Vitamin B1 Tab NG 100 mg DAILY [facility] Administration - Patient Studies Lab Studies: Microbiology Studies 12/24/17 05:21 Blood Culture - Preliminary Blood-Thru Central Line NO GROWTH AFTER 4 DAYS Lab Studies 12/28/17 12/28/17 12/28/17 Range/Units 05:31 04:50 04:50 WBC 7.3 (4.8-10.8) K/uL RBC 2.59 L (4.40-5.90) Mil/uL Hgb 8.0 L (12.0-18.0) g/dL Hct 24.6 L (35.0-51.0) % MCV 95.2 H (80.0-94.0) fl MCH 31.0 (27.0-31.0) pg MCHC 32.5 L (33.0-37.0) g/dL RDW 19.1 H (11.5-14.5) % Plt Count 251 (130-400) K/uL pCO2 60 H (35-45) mm/Hg pO2 156 H (80-100) mm/Hg HCO3 38.1 H (21-28) mmol/L ABG pH 7.46 H (7.35-7.45) ABG Total CO2 44.5 H (22-28) mmol/L ABG O2 Saturation 100.0 H (95-98) % ABG O2 Content 11.5 L (15-23) ML/dL ABG Base Excess 16.9 H (-2.0-3.0) mmol/L ABG Hemoglobin 8.2 L (11.7-17.4) g/dL ABG Carboxyhemoglobin 1.7 H (0.5-1.5) % POC ABG HHb (Measured) 0.0 (0.0-5.0) % ABG Methemoglobin 1.7 (0.0-3.0) % ABG O2 Capacity 11.5 L (16-24) mL/dL Roberto Test Yes A-a O2 Difference 126.0 mm/Hg Hgb O2 Saturation 96.5 (95.0-98.0) % Vent Mode A/c Mechanical Rate 16 FiO2 50.0 % Tidal Volume 450 PEEP 5 Sodium 139 (132-148) mmol/l Potassium 3.8 (3.6-5.0) MMOL/L Chloride 97 L (98-107) mmol/L Carbon Dioxide 39 H (22-30) mmol/L Anion Gap 7 L (10-20) BUN 12 (9-20) mg/dl Creatinine 0.4 L (0.8-1.5) mg/dl Est GFR ( Amer) > 60 Est GFR (Non-Af Amer) > 60 Random Glucose 107 (75-110) mg/dL Calcium 8.1 L (8.4-10.2) mg/dL Laboratory Results - last 24 hr 12/28/17 12/28/17 12/28/17 04:50 04:50 05:31 WBC 7.3 RBC 2.59 L Hgb 8.0 L Hct 24.6 L MCV 95.2 H MCH 31.0 MCHC 32.5 L RDW 19.1 H Plt Count 251 pCO2 60 H pO2 156 H HCO3 38.1 H ABG pH 7.46 H ABG Total CO2 44.5 H ABG O2 Saturation 100.0 H ABG O2 Content 11.5 L ABG Base Excess 16.9 H ABG Hemoglobin 8.2 L ABG Carboxyhemoglobin 1.7 H POC ABG HHb (Measured) 0.0 ABG Methemoglobin 1.7 ABG O2 Capacity 11.5 L Roberto Test Yes A-a O2 Difference 126.0 Hgb O2 Saturation 96.5 Vent Mode A/c Mechanical Rate 16 FiO2 50.0 Tidal Volume 450 PEEP 5 Sodium 139 Potassium 3.8 Chloride 97 L Carbon Dioxide 39 H Anion Gap 7 L BUN 12 Creatinine 0.4 L Est GFR ( Amer) > 60 Est GFR (Non-Af Amer) > 60 Random Glucose 107 Calcium 8.1 L Fingerstick Blood Sugar Results: 142 Review of Systems - Review of Systems Systems not reviewed;Unavailable: Acuity of Condition Critical Care Progress Note - Ventilator Checklist Head of Bed 30 Degrees: Yes Daily Sedation Vacation: No Daily Assessment of Readiness to Wean: No Daily Spontaneous Breathing Trial: No PUD Prophalyxis: Yes DVT Prophylaxis: Yes - Vent Settings MODE:: ASSIST CONTROL TIDAL VOLUME:: 450 RESP RATE:: 16 FIO2:: 50 PEEP:: 5 - Extremities/Vascular Does the Patient have a Central Venous Catheter?: No Does the Patient need a Central Venous Catheter?: No Does the Patient have a Holloway Catheter?: Yes Does the Patient need a Holloway Catheter?: Yes Catheter Insertion Criteria: Patient requires prolonged immobilization - Prophylaxis GI Prophylaxis GI: Pepsid - Prophylaxis DVT Prophylaxis DVT: Lovenox Assessment/Plan - Assessment and Plan (Free Text) Assessment: 63 y/o male, with unobtainable medical history, 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 Smaller cerebellar infarcts b/l -Intubated. -GCS 4T -c/w respiratory support and tube feedings -C/W ASA and Plavix -poor prognosis/Ethic committee review. -Decision regarding PEG/Trach placement deferred at this time by Temporary guardianship Respiratory Failure secondary CVA -2/2 to Acute CVA -intubated -C/W 16, Vt 450, FIO2 50, PEEP 5 -Monitor ABGs Left lung lobe atelectasis -Likely due to mucus plug. s/p suction -Improved -Monitor Strep + on tracheostomy secretions -C/w Unasyn IV -Mechanically ventilated Anemia of Unknown Etiology -Worse. Will monitor V/S. Consider blood transfusion if Hgb<7 or hemodinamically unstable -No clinical evidence of acute bleeding -monitor H/H and VS Prophylaxis -Head of bed elevation @ 30 degrees -Pepcid 40 mg daily -Lovenox 40mg SC QD -SCDs <Talib Montejo - Last Filed: 12/28/17 18:43> CCU Subjective - Physician Review Subjective (Free Text): Attestation: Patient seen and examined at the bedside with Resident Dr. Jayson Duncan; and I agree with his outline of plans and management documented below as discussed on AM rounds reflecting my review of all applicable clinical data, and participation in the care of the patient throughout the day in ICU; today, December 28, 2017.
--- NOTE | 2017-12-28 11:48 | CP.PCM.PN ---
Subjective - Date & Time of Evaluation Date of Evaluation: 12/28/17 Time of Evaluation: 09:00 - Subjective Subjective: Pt is febrile Remains intubated on Vent 16/450/5/50% breaths over Vent sl movement of shoulder on deep pain Tolerating tube feeding Leukocytosis improved today Objective - Vital Signs/Intake and Output Vital Signs (last 24 hours): Temp Pulse Resp BP Pulse Ox 97.5 F L 97 H 20 136/69 100 12/28/17 08:00 12/28/17 10:00 12/28/17 10:00 12/28/17 10:00 12/28/17 10:00 Intake and Output: 12/28/17 12/28/17 06:59 18:59 Intake Total 500 430 Output Total 1550 Balance -1050 430 - Medications Medications: Current Medications Acetaminophen (Tylenol 650mg/20.3ml Solution Ud) 650 mg PO Q6 PRN PRN Reason: fever > 100.4 Last Admin: 12/27/17 21:23 Dose: 650 mg Aspirin (Aspirin Chewable) 81 mg NG DAILY [facility] Last Admin: 12/28/17 08:25 Dose: 81 mg Atorvastatin Calcium (Lipitor) 40 mg PO HS [facility] Last Admin: 12/27/17 21:23 Dose: 40 mg Clopidogrel Bisulfate (Plavix) 75 mg NG DAILY [facility] Last Admin: 12/28/17 08:25 Dose: 75 mg Enoxaparin Sodium (Lovenox) 40 mg SC HS [facility] PRN Reason: Protocol Last Admin: 12/27/17 21:23 Dose: 40 mg Famotidine (Pepcid) 40 mg PO DAILY [facility] Last Admin: 12/28/17 08:26 Dose: 40 mg Ferrous Sulfate (Feosol Liq) 300 mg PO DAILY [facility] Last Admin: 12/28/17 08:25 Dose: 300 mg Folic Acid (Folic Acid) 1 mg GT DAILY [facility] Last Admin: 12/28/17 08:25 Dose: 1 mg Ampicillin Sodium/Sulbactam (Sodium 1.5 gm/ Sodium Chloride) 100 mls @ 100 mls/ hr IVPB Q6 [facility] PRN Reason: Protocol Last Admin: 12/28/17 09:14 Dose: 100 mls/hr Thiamine HCl (Vitamin B1 Tab) 100 mg NG DAILY [facility] Last Admin: 12/28/17 08:25 Dose: 100 mg - Labs Labs: 12/28/17 04:50 12/28/17 04:50 PT 14.1 Seconds (9.8-13.1) H 12/01/17 09:44 INR 1.3 (0.9-1.2) H 12/01/17 09:44 APTT 34.4 Seconds (25.6-37.1) 12/01/17 09:44 - Constitutional Appears: chronically ill, Intubated on Vent - Head Exam Head Exam: NORMAL INSPECTION, NORMOCEPHALIC - Eye Exam Eye Exam: Pupil Exam: Fixed, 4mm, not reactive to light - ENT Exam ENT Exam: Mucous Membranes Dry, Normal External Ear Exam - Neck Exam Neck Exam: absent: Meningismus - Respiratory Exam Respiratory Exam: Rhonchi, coarse rales Additional comments: Intubated on Vent - Cardiovascular Exam Cardiovascular Exam: REGULAR RHYTHM, +S1, +S2 - GI/Abdominal Exam GI & Abdominal Exam: Soft, Normal Bowel Sounds OGT in place - Extremities Exam Extremities Exam: Pedal Edema, edematous upper ext - Neurological Exam Additional comments: responds to deep pain by sl movement fixed pupils no gag reflex breathes over the Vent Assessment and Plan (1) Acute CVA (cerebrovascular accident) Status: Acute (2) Altered mental status Status: Acute (3) Slurring of speech Status: Acute (4) HTN (hypertension) Status: Chronic (5) Acute metabolic encephalopathy Status: Acute (6) Acute respiratory insufficiency Status: Acute (7) DVT prophylaxis Status: Acute - Assessment and Plan (Free Text) Assessment: 62 y/o White male , initially admitted as Tez White , now identified by Police as Jesus Grayson , unknown PMH was brought by EMS after he was observed by bystanders falling in the street. Patient was lethargic on admission however arousable , noted to have a facial droop and his speech was slurred. 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 He was transferred to ICU and intubated for airway protection. Repeat CT of head showed no change but MRI showed pontine, midbrain, cerebellar hemispheres and thalami infarct. 11/22: With episode of vomiting and possible aspiration became hypotensive, tachycardic, febrile, and hypoxemic Repeat CT head 11/28 showed :Gross edematous changes affect cerebellar hemispheres bilaterally sparing only the inferior margins somewhat and causing compression on the the mid to lower brainstem. The 4th ventricle is partially effaced but no obstructive hydrocephalus appreciated at this time. Edema has extend into the bilateral thalami, right greater than left further indicative of expanding infarction. No intracranial hemorrhage. Patient is comatose with no gag , no cornea no pupillary reflex Given patient's poor prognosis medical team following him has decided that it is appropriate to " not Escalate treatment " and DNR order placed. Ethics Committee meeting recommended Emergency guardianship which is in progress. Temporary guardians came to hospital 12/20 and received all information in regards to patient's medical condition and prognosis.They agreed to DNR order . 1. Acute CVA/ Coma state Patient is comatose , pupils fixed not reactive to light ,gag reflex present. Breaths over the vent and maintains his BP MRI brain showed pontine , midbrain, cerebellar hemispheres and thalamic infarct Repeat CT of head 11/28 showed :Gross edematous changes affect cerebellar hemispheres bilaterally sparing only the inferior margins somewhat and causing compression on the the mid to lower brainstem. The 4th ventricle is partially effaced but no obstructive hydrocephalus appreciated at this time. Edema has extend into the bilateral thalami, right greater than left further indicative of expanding infarction. No intracranial hemorrhage. Poor Prognosis Neurology on consult Continue ASA, Statin, Plavix [facility] has been notified Given patient's poor prognosis medical team following him has decided a Do not Escalate treatment and DNR order in place. Temporary guardianship is in effect and agrees to DNR order Rpt CT of head 12/26 -Interval evolution previously noted of large acute infarct which involves keshia in both cerebellar hemispheres including vermis. There also has been interval evolution of posterior bilateral basal nuclei ischemic changes Diffuse/confluent chronic periventricular white matter ischemic changes extending peripherally into the deep and subcortical white matter both cerebral hemispheres. In addition, there are multiple additional chronic appearing bilateral basal nuclei lacunar type infarcts also seen. There is persistent dilatation of the temporal horns and atria bilaterally likely due to asymmetric central volume loss most pronounced in the posterior temporal lobes and occipital parietal regions Discussed case with Dr Mcneill - he does not feel that pt would improved or have meaningful life ahead- pt has extensive CVA , brain does not communicate with spinal cord. 12/27 : I spoke with Temporary Guardian- George Garland , given pt's very poor prognosis/comatose state , discussed plan for Trach/PEG vs withdrawal of care - she stated that since she is not in the medical field and does not know pt, she would like to defer this decision and wait for the Public Guardianship to decide of these. 2. Sepsis due to Aspiration Pneumonia-resolved Still orally Intubated since 11/16 ( ET tube changed 12/09) on Vent (PVRC/AC 16/450 /5/100%) procalcitonin was elevated , intermittent fever Off Levophed, all antibiotics d/c trachea aspirate: positive for Citrobacter and 1 blood cx positive for Staph coag negative ( ? contaminant),repeat blood cultures negative completed IV antibiotic treatment with Cipro and Vanco - now off antibiotics ID consulted : Dr. Anderson Keep HOB elevated , aspiration, precautions,respiratory toilet with frequent suctioning CXR showed right pleural effusion rpt Trach Aspirate c/s : Beta hemolytic Strep - Unasyn started on 12/26 3. Atelectasis , left lung likely from mucus plugging CXR shows whole left lung white out Trach Asp C/S: Beta hemolytic Strep- Unasyn started by Dr Finn Deep suctioning by Resp team rpt CXR 12/27 - improved 4. UTI-treated urine cx positive for Strep viridans - completed treatment with Vanco IV for 2 weeks 5. ? Alcoholism unclear if alcoholic, cannot obtain hx however ED note stated that patient has history of ETOH ETOH level low urine Tox : neg cont Thiamine and FA 6. Anemia, chronic dis sl. drop during hospitalization likely due to acute medical condition, blood drawing will hold off on transfusion unless Hgb drops to less than 7 ot if pt shows any signs on hemodynamic instability/. DVT prophylaxis Acute Lovenox
[2017-12-28] MEDS: Acetaminophen 650mg/20.3ml solution UD PO PRN (19:38)
[2017-12-28] MEDS: Enoxaparin 40 mg Syringe SC SCH (21:27)
[2017-12-29 05:47] LABS: HEMOGLOBIN 9.7 g/dL (12.0-18.0); MEAN CELL VOLUME 95.2 fl (80.0-94.0); MEAN CORPUSCULAR HEMOGLOBIN 30.5 pg (27.0-31.0); RBC 3.19 Mil/uL (4.40-5.90); RED CELL DISTRIBUTION WIDTH 19.3 % (11.5-14.5); WHITE BLOOD COUNT 10.5 K/uL (4.8-10.8)
[2017-12-29 05:58] LABS: ABG ALLEN TEST YES; ARTERIAL BLOOD GAS HEMOGLOBIN 9.4 g/dL (11.7-17.4); ARTERIAL BLOOD GAS O2 CAPACITY 13.1 mL/dL (16-24); ARTERIAL BLOOD GAS O2 CONTENT 13.1 ML/dL (15-23); ARTERIAL BLOOD GAS O2 SAT 99.8 % (95-98); ARTERIAL BLOOD GAS PCO2 62 mm/Hg (35-45); ARTERIAL BLOOD GAS PH 7.45 (7.35-7.45); ARTERIAL BLOOD GAS PO2 150 mm/Hg (80-100)
[2017-12-29 06:08] LABS: BLOOD UREA NITROGEN 13 mg/dl (9-20); CALCIUM 8.5 mg/dL (8.4-10.2); GFR AFRICAN-AMERICAN > 60; GFR NON-AFRICAN AMERICAN > 60
--- NOTE | 2017-12-29 08:23 | CP.PCM.PN ---
Subjective - Date & Time of Evaluation Date of Evaluation: 12/29/17 Time of Evaluation: 08:15 - Subjective Subjective: Patient seen and examined bedside. Comatose, intubated on MV PRVC AC mode 16/450 /5/50 % ABG 62/150/38/7.45 ,not on any pressors BP 122/83 febrile Tmax 101 last 12 hours HR 88 No acute issues overnight | Pupils today unequal not reactive to light. gag and cornea reflex present , not withdrawing to painful stimuli WBC 10 Hgb 9.7 plt 318 k Objective - Vital Signs/Intake and Output Vital Signs (last 24 hours): Temp Pulse Resp BP Pulse Ox 98 F 88 20 122/83 100 12/29/17 04:00 12/29/17 06:00 12/29/17 06:00 12/29/17 06:00 12/29/17 06:00 Intake and Output: 12/29/17 12/29/17 06:59 18:59 Intake Total 500 Output Total 1950 Balance -1450 - Medications Medications: Current Medications Acetaminophen (Tylenol 650mg/20.3ml Solution Ud) 650 mg PO Q6 PRN PRN Reason: fever > 100.4 Last Admin: 12/28/17 19:38 Dose: 650 mg Aspirin (Aspirin Chewable) 81 mg NG DAILY [facility] Last Admin: 12/28/17 08:25 Dose: 81 mg Atorvastatin Calcium (Lipitor) 40 mg PO HS [facility] Last Admin: 12/28/17 21:25 Dose: 40 mg Clopidogrel Bisulfate (Plavix) 75 mg NG DAILY [facility] Last Admin: 12/28/17 08:25 Dose: 75 mg Enoxaparin Sodium (Lovenox) 40 mg SC HS [facility] PRN Reason: Protocol Last Admin: 12/28/17 21:27 Dose: 40 mg Famotidine (Pepcid) 40 mg PO DAILY [facility] Last Admin: 12/28/17 08:26 Dose: 40 mg Ferrous Sulfate (Feosol Liq) 300 mg PO DAILY [facility] Last Admin: 12/28/17 08:25 Dose: 300 mg Folic Acid (Folic Acid) 1 mg GT DAILY [facility] Last Admin: 12/28/17 08:25 Dose: 1 mg Ampicillin Sodium/Sulbactam (Sodium 1.5 gm/ Sodium Chloride) 100 mls @ 100 mls/ hr IVPB Q6 [facility] PRN Reason: Protocol Last Admin: 12/29/17 05:26 Dose: 100 mls/hr Thiamine HCl (Vitamin B1 Tab) 100 mg NG DAILY [facility] Last Admin: 12/28/17 08:25 Dose: 100 mg - Labs Labs: 12/29/17 04:35 12/29/17 04:35 PT 14.1 Seconds (9.8-13.1) H 12/01/17 09:44 INR 1.3 (0.9-1.2) H 12/01/17 09:44 APTT 34.4 Seconds (25.6-37.1) 12/01/17 09:44 - Constitutional Appears: Other (intubated on MV , comatose ) - Head Exam Head Exam: ATRAUMATIC, NORMOCEPHALIC - Eye Exam Pupil Exam: Unequal Additional comments: right pupil 4 mm left 2 mm not responsive to light stimuli cornea reflex present - ENT Exam ENT Exam: Mucous Membranes Dry, Normal Exam - Neck Exam Neck Exam: Normal Inspection - Respiratory Exam Respiratory Exam: Rhonchi (bilateral) Additional comments: intubated - Cardiovascular Exam Cardiovascular Exam: REGULAR RHYTHM, +S1, +S2. absent: JVD - GI/Abdominal Exam GI & Abdominal Exam: Soft, Normal Bowel Sounds. absent: Distended, Guarding, Rebound - Rectal Exam Rectal Exam: Deferred - Extremities Exam Extremities Exam: absent: Joint Swelling, Pedal Edema - Neurological Exam Additional comments: comatose not responding to verbal or painful stimuli gag and cornea reflex present pupils unequal size not reactive to light reflex - Skin Skin Exam: Dry, Warm Assessment and Plan - Assessment and Plan (Free Text) Assessment: 62 y/o White male , initially admitted as Tez White , now identified by Police as Jesus Grayson , unknown PMH was brought by EMS after he was observed by bystanders falling in the street. Patient was lethargic on admission however arousable , noted to have a facial droop and his speech was slurred. 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 He was transferred to ICU and intubated for airway protection. Repeat CT of head showed no change but MRI showed pontine, midbrain, cerebellar hemispheres and thalami infarct. 11/22: With episode of vomiting and possible aspiration became hypotensive, tachycardic, febrile, and hypoxemic Repeat CT head 11/28 showed :Gross edematous changes affect cerebellar hemispheres bilaterally sparing only the inferior margins somewhat and causing compression on the the mid to lower brainstem. The 4th ventricle is partially effaced but no obstructive hydrocephalus appreciated at this time. Edema has extend into the bilateral thalami, right greater than left further indicative of expanding infarction. No intracranial hemorrhage. Patient is comatose. Today his pupils are unequal size ( right 4 m, left 2 mm ) not reactive to light stimuli, gag and cornea reflex present , not withdrawing to painful stimuli Given patient's poor prognosis medical team following him has decided that it is appropriate to " not Escalate treatment " and DNR order placed. Ethics Committee meeting recommended Emergency guardianship which is in progress. Temporary guardians came to hospital 12/20 and received all information in regards to patient's medical condition and prognosis.They agreed to DNR order, no trache , no peg for now. 1. Acute CVA/ Coma state Patient is comatose , pupils fixed , unequal size not reactive to light ,gag reflex present. Breaths over the vent and maintains his BP MRI brain showed pontine , midbrain, cerebellar hemispheres and thalamic infarct Repeat CT of head 11/28 showed :Gross edematous changes affect cerebellar hemispheres bilaterally sparing only the inferior margins somewhat and causing compression on the the mid to lower brainstem. The 4th ventricle is partially effaced but no obstructive hydrocephalus appreciated at this time. Edema has extend into the bilateral thalami, right greater than left further indicative of expanding infarction. No intracranial hemorrhage. Poor Prognosis Neurology on consult Continue ASA, Statin, Plavix [facility] network has been notified Given patient's poor prognosis medical team following him has decided a Do not Escalate treatment and DNR order in place. Temporary guardianship is in effect and agrees to DNR order Repeat CT of head 12/26 -Interval evolution previously noted of large acute infarct which involves keshia in both cerebellar hemispheres including vermis. There also has been interval evolution of posterior bilateral basal nuclei ischemic changes Diffuse/confluent chronic periventricular white matter ischemic changes extending peripherally into the deep and subcortical white matter both cerebral hemispheres. In addition, there are multiple additional chronic appearing bilateral basal nuclei lacunar type infarcts also seen. There is persistent dilatation of the temporal horns and atria bilaterally likely due to asymmetric central volume loss most pronounced in the posterior temporal lobes and occipital parietal regions Discussed case with Dr Mcneill - he does not feel that pt would improved or have meaningful life ahead- pt has extensive CVA , brain does not communicate with spinal cord. 12/27 : Temporary Guardian- George Garland , given pt's very poor prognosis/ comatose state , discussed plan for Trach/PEG vs withdrawal of care - she stated that since she is not in the medical field and does not know pt, she would like to defer this decision and wait for the Public Guardianship to decide of these. 2. Sepsis due to Aspiration Pneumonia-resolved Still orally Intubated since 11/16 ( ET tube changed 12/09) on Vent (PVRC/AC 16/450 /5/50%) procalcitonin was elevated , intermittent fever Off Levophed, all antibiotics d/c trachea aspirate: positive for Citrobacter and 1 blood cx positive for Staph coag negative ( ? contaminant),repeat blood cultures negative completed IV antibiotic treatment with Cipro and Vanco - now off antibiotics ID consulted : Dr. Anderson Keep HOB elevated , aspiration, precautions,respiratory toilet with frequent suctioning CXR showed no infiltrate today Repeat Trach Aspirate c/s : Beta hemolytic Strep - Unasyn started on 12/26 3. Atelectasis , left lung likely from mucus plugging CXR showed whole left lung white out and presently opened Trach Asp C/S: Beta hemolytic Strep- Unasyn started by Dr Finn Continue Deep suctioning by Respiratory team CXR today shows no infiltrtae 4. UTI-treated urine cx positive for Strep viridans - completed treatment with Vanco IV for 2 weeks 5. ? Alcoholism unclear if alcoholic, cannot obtain hx however ED note stated that patient has history of ETOH ETOH level low urine Tox : neg cont Thiamine and FA 6. Anemia, chronic dis sl. drop during hospitalization likely due to acute medical condition, blood drawing will hold off on transfusion unless Hgb drops to less than 7 ot if pt shows any signs on hemodynamic instability/. 7.DVT prophylaxis Acute Lovenox
[2017-12-29] MEDS: Ferrous Sulfate 300 mg/5 mL Liq UD PO SCH (08:49)
--- NOTE | 2017-12-29 10:38 | RAD ---
HISTORY: intubated COMPARISON: Portable chest 12/27/2017. FINDINGS: LUNGS: Endotracheal and nasogastric tubes do not appear significantly changed in position. Improved aeration is seen at the left chest with trace residual airspace disease at the medial left base. None is seen the right. PLEURA: No significant pleural effusion identified, no pneumothorax apparent. CARDIOVASCULAR: Normal. OSSEOUS STRUCTURES: No significant abnormalities. VISUALIZED UPPER ABDOMEN: Normal. OTHER FINDINGS: None. IMPRESSION: Improved aeration at the mid to inferior left lung zone with trace residual medial left basilar airspace disease. Unremarkable right lung. No pulmonary vascular congestion.
--- NOTE | 2017-12-29 11:49 | CP.CCUPN ---
<DakotaMatthieu - Last Filed: 12/29/17 11:53> CCU Subjective - Physician Review Subjective (Free Text): Patient seen at bedside, unresponsive, intubated and mechanically ventilated. Squirming at times. Corneal reflex present. No pupillary response. Feeding through OG tube. Had fever overnight. CCU Objective - Vital Signs / Intake & Output Vital Signs (Last 4 hours): Vital Signs Temp Pulse Resp BP Pulse Ox 12/29/17 10:00 94 H 9 L 122/79 100 12/29/17 08:00 98.1 F 90 16 145/84 100 Intake and Output (Last 8hrs): Intake & Output 12/28/17 12/29/17 12/29/17 22:59 06:59 14:59 Intake Total 640 350 150 Output Total 1300 1950 Balance -660 -1600 150 Intake: IV 0 0 Intake, Piggyback 100 200 Tube Feeding 240 Free Water Flush 300 150 150 Output: Urine 1300 1950 2-way Urethral 1300 1950 Other: # Bowel Movements 1 1 - Physical Exam Head: Positive for: Atraumatic, Normocephalic. Negative for: Ecchymosis, Abrasion, Laceration Pupils: Negative for: PERRL Extroacular Muscles: Negative for: EOMI Conjunctiva: Positive for: Normal. Negative for: Injected, Icteric Ears: Positive for: Normal Mouth: Positive for: Moist Mucous Membranes Pharnyx: Negative for: ERYTHEMA, EXUDATE, TONSILS ENLARGED Neck: Positive for: Trachea Midline. Negative for: JVD, Lymphadenopathy Respiratory/Chest: Positive for: Clear to Auscultation ( distant breath sounds b /l). Negative for: Rales, Retracting, Rhonchi Cardiovascular: Positive for: Regular Rate and Rhythm, Normal S1, S2, Peripheal Pulses Present (faint). Negative for: Rub, Gallop Abdomen: Positive for: Normal Bowel Sounds. Negative for: Distention, Peritoneal Signs Upper Extremity: Positive for: Capillary Refill < 2s. Negative for: Cyanosis, Erythema Lower Extremity: Negative for: Normal Inspection (DTI), Edema, NORMAL PULSES ( faint), Swelling, Temperature Abnormalties Neurological: Positive for: Other (on ventilator, no response to verbal stimuli) . Negative for: GCS=15 (4T), Speech Normal, Motor Func Grossly Intact, Normal Sensory Function Skin: Positive for: Dry. Negative for: Laceration Lymphatic: Negative for: Cervical Adenopathy Psychiatric: Positive for: Other (comatose). Negative for: Alert, Oriented x 3 - Medications Active Medications: Active Medications Generic Name Dose Route Start Last Admin Trade Name Freq PRN Reason Stop Dose Admin Acetaminophen 650 mg 11/27/17 00:56 12/28/17 19:38 Tylenol 650mg/20.3ml Solution Ud PO 650 mg Q6 PRN Administration fever > 100.4 Aspirin 81 mg 11/19/17 09:00 12/29/17 08:49 Aspirin Chewable NG 81 mg DAILY [facility] Administration Atorvastatin Calcium 40 mg 11/17/17 22:00 12/28/17 21:25 Lipitor PO 40 mg HS [facility] Administration Clopidogrel Bisulfate 75 mg 11/18/17 09:45 12/29/17 08:49 Plavix NG 75 mg DAILY [facility] Administration Enoxaparin Sodium 40 mg 12/22/17 22:00 12/28/17 21:27 Lovenox SC 40 mg HS [facility] Administration Protocol Famotidine 40 mg 12/02/17 09:00 12/29/17 08:50 Pepcid PO 40 mg DAILY [facility] Administration Ferrous Sulfate 300 mg 12/18/17 09:00 12/29/17 08:49 Feosol Liq PO 300 mg DAILY [facility] Administration Folic Acid 1 mg 11/17/17 09:00 12/28/17 08:25 Folic Acid GT 1 mg DAILY [facility] Administration Ampicillin Sodium/Sulbactam 100 mls @ 100 mls/hr 12/26/17 16:00 12/29/17 05: 26 Sodium 1.5 gm/ Sodium Chloride IVPB 100 mls/hr Q6 [facility] Administration Protocol Thiamine HCl 100 mg 12/12/17 09:00 12/29/17 08:50 Vitamin B1 Tab NG 100 mg DAILY [facility] Administration - Patient Studies Lab Studies: Microbiology Studies 12/24/17 05:21 Blood Culture - Final Blood-Thru Central Line NO GROWTH AFTER 5 DAYS Gram Stain - Final TEST NOT PERFORMED Lab Studies 12/29/17 12/29/17 12/29/17 Range/Units 05:52 04:35 04:35 WBC 10.5 (4.8-10.8) K/uL RBC 3.19 L (4.40-5.90) Mil/uL Hgb 9.7 L (12.0-18.0) g/dL Hct 30.3 L (35.0-51.0) % MCV 95.2 H (80.0-94.0) fl MCH 30.5 (27.0-31.0) pg MCHC 32.0 L (33.0-37.0) g/dL RDW 19.3 H (11.5-14.5) % Plt Count 318 (130-400) K/uL pCO2 62 H (35-45) mm/Hg pO2 150 H (80-100) mm/Hg HCO3 38.0 H (21-28) mmol/L ABG pH 7.45 (7.35-7.45) ABG Total CO2 45.0 H (22-28) mmol/L ABG O2 Saturation 99.8 H (95-98) % ABG O2 Content 13.1 L (15-23) ML/dL ABG Base Excess 16.8 H (-2.0-3.0) mmol/L ABG Hemoglobin 9.4 L (11.7-17.4) g/dL ABG Carboxyhemoglobin 1.6 H (0.5-1.5) % POC ABG HHb (Measured) 0.2 (0.0-5.0) % ABG Methemoglobin 1.7 (0.0-3.0) % ABG O2 Capacity 13.1 L (16-24) mL/dL Roberto Test Yes A-a O2 Difference 129.0 mm/Hg Hgb O2 Saturation 96.4 (95.0-98.0) % Vent Mode A/c Mechanical Rate 16 FiO2 50.0 % Tidal Volume 450 PEEP 5 Sodium 140 (132-148) mmol/l Potassium 4.2 (3.6-5.0) MMOL/L Chloride 95 L (98-107) mmol/L Carbon Dioxide 39 H (22-30) mmol/L Anion Gap 10 (10-20) BUN 13 (9-20) mg/dl Creatinine 0.4 L (0.8-1.5) mg/dl Est GFR ( Amer) > 60 Est GFR (Non-Af Amer) > 60 Random Glucose 116 H (75-110) mg/dL Calcium 8.5 (8.4-10.2) mg/dL Laboratory Results - last 24 hr 12/29/17 12/29/1718 04:35 04:35 05:52 WBC 10.5 RBC 3.19 L Hgb 9.7 L Hct 30.3 L MCV 95.2 H MCH 30.5 MCHC 32.0 L RDW 19.3 H Plt Count 318 pCO2 62 H pO2 150 H HCO3 38.0 H ABG pH 7.45 ABG Total CO2 45.0 H ABG O2 Saturation 99.8 H ABG O2 Content 13.1 L ABG Base Excess 16.8 H ABG Hemoglobin 9.4 L ABG Carboxyhemoglobin 1.6 H POC ABG HHb (Measured) 0.2 ABG Methemoglobin 1.7 ABG O2 Capacity 13.1 L Roberto Test Yes A-a O2 Difference 129.0 Hgb O2 Saturation 96.4 Vent Mode A/c Mechanical Rate 16 FiO2 50.0 Tidal Volume 450 PEEP 5 Sodium 140 Potassium 4.2 Chloride 95 L Carbon Dioxide 39 H Anion Gap 10 BUN 13 Creatinine 0.4 L Est GFR ( Amer) > 60 Est GFR (Non-Af Amer) > 60 Random Glucose 116 H Calcium 8.5 Fingerstick Blood Sugar Results: 142 Review of Systems - Review of Systems Systems not reviewed;Unavailable: Acuity of Condition Critical Care Progress Note - Ventilator Checklist Head of Bed 30 Degrees: Yes Daily Sedation Vacation: No Daily Assessment of Readiness to Wean: No Daily Spontaneous Breathing Trial: No PUD Prophalyxis: Yes DVT Prophylaxis: Yes - Vent Settings MODE:: ASSIST CONTROL TIDAL VOLUME:: 450 RESP RATE:: 16 FIO2:: 50 PEEP:: 5 - Extremities/Vascular Does the Patient have a Central Venous Catheter?: No Does the Patient need a Central Venous Catheter?: No Does the Patient have a Holloway Catheter?: Yes Does the Patient need a Holloway Catheter?: Yes Catheter Insertion Criteria: Patient requires prolonged immobilization - Prophylaxis GI Prophylaxis GI: Pepsid - Prophylaxis DVT Prophylaxis DVT: Lovenox Assessment/Plan - Assessment and Plan (Free Text) Assessment: 63 y/o male, with unobtainable medical history, 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 Comatose Acute CVA/Coma -Pontine infarct with extension to midbrain. Smaller cerebellar infarcts b/l -Intubated. -GCS 4T -c/w respiratory support and tube feedings -C/W ASA and Plavix -poor prognosis/Ethic committee review. -Decision regarding PEG/Trach placement deferred at this time by Temporary guardianship Respiratory Failure secondary CVA -2/2 to Acute CVA -intubated -C/W same vent settings: RR 16, Vt 450, FIO2 50, PEEP 5 -Monitor ABGs Strep + on tracheostomy secretions -C/w Unasyn IV -Fever overnight -BCx no growth -Mechanically ventilated Anemia of Unknown Etiology -Monitor V/S. Consider blood transfusion if Hgb<7 or hemodinamically unstable -No clinical evidence of acute bleeding Prophylaxis -Head of bed elevation @ 30 degrees -Pepcid 40 mg daily -Lovenox 40mg SC QD -SCDs <Talib Montejo - Last Filed: 12/29/17 18:34> CCU Subjective - Physician Review Subjective (Free Text): Attestation: Patient seen and examined at the bedside with Resident Dr. Jayson Duncan; and I agree with his outline of plans and management documented below as discussed on AM rounds reflecting my review of all applicable clinical data, and participation in the care of the patient throughout the day in ICU; today, December 29, 2017.
[2017-12-29] MEDS: Enoxaparin 40 mg Syringe SC SCH (21:04)
[2017-12-29] MEDS: Acetaminophen 650mg/20.3ml solution UD PO PRN (23:31)
[2017-12-30] MEDS: Acetaminophen 650mg/20.3ml solution UD PO PRN ×2 (05:22→09:38)
[2017-12-30 05:26] LABS: ABG ALLEN TEST YES; ARTERIAL BLOOD GAS HCO3 37.8 mmol/L (21-28); ARTERIAL BLOOD GAS HEMOGLOBIN 9.8 g/dL (11.7-17.4); ARTERIAL BLOOD GAS O2 CAPACITY 13.5 mL/dL (16-24); ARTERIAL BLOOD GAS O2 CONTENT 13.5 ML/dL (15-23); ARTERIAL BLOOD GAS O2 SAT 99.7 % (95-98); ARTERIAL BLOOD GAS PCO2 52 mm/Hg (35-45); ARTERIAL BLOOD GAS PH 7.51 (7.35-7.45); ARTERIAL BLOOD GAS PO2 108 mm/Hg (80-100); ARTERIAL BLOOD GAS TCO2 43.1 mmol/L (22-28)
[2017-12-30 05:37] LABS: HEMOGLOBIN 10.5 g/dL (12.0-18.0); MEAN CELL VOLUME 95.4 fl (80.0-94.0); MEAN CORPUSCULAR HEMOGLOBIN 30.6 pg (27.0-31.0); MEAN CORPUSCULAR HGB CONC 32.1 g/dL (33.0-37.0); RBC 3.42 Mil/uL (4.40-5.90); RED CELL DISTRIBUTION WIDTH 18.8 % (11.5-14.5); WHITE BLOOD COUNT 9.5 K/uL (4.8-10.8)
[2017-12-30 06:01] LABS: BLOOD UREA NITROGEN 17 mg/dl (9-20); CALCIUM 8.6 mg/dL (8.4-10.2); GFR AFRICAN-AMERICAN > 60; GFR NON-AFRICAN AMERICAN > 60
--- NOTE | 2017-12-30 07:32 | RAD ---
HISTORY: intubated COMPARISON: Portable chest 12/29/2017. FINDINGS: LUNGS: Endotracheal and nasogastric tubes do not appear significantly changed in position. No infiltrate right chest. Medial basilar left sided atelectasis is identified increased slightly. PLEURA: Left pleural effusion not excluded. None on the right. No pneumothorax bilaterally. CARDIOVASCULAR: Normal. OSSEOUS STRUCTURES: No significant abnormalities. VISUALIZED UPPER ABDOMEN: Normal. OTHER FINDINGS: None. IMPRESSION: A marginal increase in left basilar atelectasis or infiltrate. Small left pleural effusion not excluded. The remainder appears stable.
[2017-12-30] MEDS: Ferrous Sulfate 300 mg/5 mL Liq UD PO SCH (08:24)
--- NOTE | 2017-12-30 08:39 | CP.CCUPN ---
<Matthieu Duncan - Last Filed: 12/30/17 08:39> CCU Subjective - Physician Review Subjective (Free Text): Patient seen at bedside, unresponsive, intubated and mechanically ventilated. Corneal reflex present. No pupillary response. Feeding through OG tube. Have been spiking low grade fevers. General status remains unchanged. CCU Objective - Vital Signs / Intake & Output Vital Signs (Last 4 hours): Vital Signs Temp Pulse Resp BP Pulse Ox 12/30/17 06:00 117 H 12 120/70 100 12/30/17 05:22 100.8 F H Intake and Output (Last 8hrs): Intake & Output 12/29/17 12/30/17 12/30/17 22:59 06:59 14:59 Intake Total 1520 200 60 Output Total 1000 1400 Balance 520 -1200 60 Weight 154 lb Intake: IV 0 Intake, Piggyback 200 200 Tube Feeding 720 60 Free Water Flush 600 Output: Urine 1000 1400 2-way Urethral 1000 1400 Stool 0 Emesis 0 Other: # Bowel Movements 0 1 - Physical Exam Head: Positive for: Atraumatic, Normocephalic. Negative for: Ecchymosis, Abrasion, Laceration Pupils: Negative for: PERRL Extroacular Muscles: Negative for: EOMI Conjunctiva: Positive for: Normal. Negative for: Injected, Icteric Ears: Positive for: Normal Mouth: Positive for: Moist Mucous Membranes Pharnyx: Negative for: ERYTHEMA, EXUDATE, TONSILS ENLARGED Neck: Positive for: Trachea Midline. Negative for: JVD, Lymphadenopathy Respiratory/Chest: Positive for: Clear to Auscultation ( distant breath sounds b /l). Negative for: Rales, Retracting, Rhonchi Cardiovascular: Positive for: Regular Rate and Rhythm, Normal S1, S2, Peripheal Pulses Present (faint). Negative for: Rub, Gallop Abdomen: Positive for: Normal Bowel Sounds. Negative for: Distention, Peritoneal Signs Upper Extremity: Positive for: Capillary Refill < 2s. Negative for: Cyanosis, Erythema Lower Extremity: Negative for: Normal Inspection (DTI), Edema, NORMAL PULSES ( faint), Swelling, Temperature Abnormalties Neurological: Positive for: Other (on ventilator, no response to verbal stimuli) . Negative for: GCS=15 (4T), Speech Normal, Motor Func Grossly Intact, Normal Sensory Function Skin: Positive for: Dry. Negative for: Laceration Lymphatic: Negative for: Cervical Adenopathy Psychiatric: Positive for: Other (comatose). Negative for: Alert, Oriented x 3 - Medications Active Medications: Active Medications Generic Name Dose Route Start Last Admin Trade Name Freq PRN Reason Stop Dose Admin Acetaminophen 650 mg 11/27/17 00:56 12/30/17 05:22 Tylenol 650mg/20.3ml Solution Ud PO 650 mg Q6 PRN Administration fever > 100.4 Aspirin 81 mg 11/19/17 09:00 12/30/17 08:24 Aspirin Chewable NG 81 mg DAILY [facility] Administration Atorvastatin Calcium 40 mg 11/17/17 22:00 12/29/17 21:04 Lipitor PO 40 mg HS [facility] Administration Clopidogrel Bisulfate 75 mg 11/18/17 09:45 12/30/17 08:24 Plavix NG 75 mg DAILY [facility] Administration Enoxaparin Sodium 40 mg 12/22/17 22:00 12/29/17 21:04 Lovenox SC 40 mg HS [facility] Administration Protocol Famotidine 40 mg 12/02/17 09:00 12/30/17 08:26 Pepcid PO 40 mg DAILY [facility] Administration Ferrous Sulfate 300 mg 12/18/17 09:00 12/30/17 08:24 Feosol Liq PO 300 mg DAILY [facility] Administration Folic Acid 1 mg 11/17/17 09:00 12/30/17 08:24 Folic Acid GT 1 mg DAILY [facility] Administration Ampicillin Sodium/Sulbactam 100 mls @ 100 mls/hr 12/26/17 16:00 12/30/17 05: 16 Sodium 1.5 gm/ Sodium Chloride IVPB 100 mls/hr Q6 [facility] Administration Protocol Thiamine HCl 100 mg 12/12/17 09:00 12/30/17 08:24 Vitamin B1 Tab NG 100 mg DAILY [facility] Administration - Patient Studies Lab Studies: Microbiology Studies 12/24/17 05:21 Blood Culture - Final Blood-Thru Central Line NO GROWTH AFTER 5 DAYS Gram Stain - Final TEST NOT PERFORMED Lab Studies 12/30/17 12/30/17 12/30/17 Range/Units 05:19 04:20 04:20 WBC 9.5 (4.8-10.8) K/uL RBC 3.42 L (4.40-5.90) Mil/uL Hgb 10.5 L (12.0-18.0) g/dL Hct 32.6 L (35.0-51.0) % MCV 95.4 H (80.0-94.0) fl MCH 30.6 (27.0-31.0) pg MCHC 32.1 L (33.0-37.0) g/dL RDW 18.8 H (11.5-14.5) % Plt Count 367 (130-400) K/uL pCO2 52 H (35-45) mm/Hg pO2 108 H (80-100) mm/Hg HCO3 37.8 H (21-28) mmol/L ABG pH 7.51 H (7.35-7.45) ABG Total CO2 43.1 H (22-28) mmol/L ABG O2 Saturation 99.7 H (95-98) % ABG O2 Content 13.5 L (15-23) ML/dL ABG Base Excess 16.5 H (-2.0-3.0) mmol/L ABG Hemoglobin 9.8 L (11.7-17.4) g/dL ABG Carboxyhemoglobin 1.9 H (0.5-1.5) % POC ABG HHb (Measured) 0.3 (0.0-5.0) % ABG Methemoglobin 1.3 (0.0-3.0) % ABG O2 Capacity 13.5 L (16-24) mL/dL Roberto Test Yes A-a O2 Difference 184.0 mm/Hg Hgb O2 Saturation 96.6 (95.0-98.0) % Vent Mode A/c Mechanical Rate 16 FiO2 50.0 % Tidal Volume 450 PEEP 5 Sodium 138 (132-148) mmol/l Potassium 4.4 (3.6-5.0) MMOL/L Chloride 91 L (98-107) mmol/L Carbon Dioxide 39 H (22-30) mmol/L Anion Gap 12 (10-20) BUN 17 (9-20) mg/dl Creatinine 0.5 L (0.8-1.5) mg/dl Est GFR ( Amer) > 60 Est GFR (Non-Af Amer) > 60 Random Glucose 114 H (75-110) mg/dL Calcium 8.6 (8.4-10.2) mg/dL Laboratory Results - last 24 hr 12/30/17 12/30/17 12/30/17 04:20 04:20 05:19 WBC 9.5 RBC 3.42 L Hgb 10.5 L Hct 32.6 L MCV 95.4 H MCH 30.6 MCHC 32.1 L RDW 18.8 H Plt Count 367 pCO2 52 H pO2 108 H HCO3 37.8 H ABG pH 7.51 H ABG Total CO2 43.1 H ABG O2 Saturation 99.7 H ABG O2 Content 13.5 L ABG Base Excess 16.5 H ABG Hemoglobin 9.8 L ABG Carboxyhemoglobin 1.9 H POC ABG HHb (Measured) 0.3 ABG Methemoglobin 1.3 ABG O2 Capacity 13.5 L Roberto Test Yes A-a O2 Difference 184.0 Hgb O2 Saturation 96.6 Vent Mode A/c Mechanical Rate 16 FiO2 50.0 Tidal Volume 450 PEEP 5 Sodium 138 Potassium 4.4 Chloride 91 L Carbon Dioxide 39 H Anion Gap 12 BUN 17 Creatinine 0.5 L Est GFR ( Amer) > 60 Est GFR (Non-Af Amer) > 60 Random Glucose 114 H Calcium 8.6 Fingerstick Blood Sugar Results: 142 Critical Care Progress Note - Ventilator Checklist Head of Bed 30 Degrees: Yes Daily Sedation Vacation: No Daily Assessment of Readiness to Wean: No Daily Spontaneous Breathing Trial: No PUD Prophalyxis: Yes DVT Prophylaxis: Yes - Vent Settings MODE:: ASSIST CONTROL TIDAL VOLUME:: 450 RESP RATE:: 16 FIO2:: 50 PEEP:: 5 - Extremities/Vascular Does the Patient have a Central Venous Catheter?: No Does the Patient need a Central Venous Catheter?: No Does the Patient have a Holloway Catheter?: Yes Does the Patient need a Holloway Catheter?: Yes Catheter Insertion Criteria: Patient requires prolonged immobilization - Prophylaxis GI Prophylaxis GI: Pepsid - Prophylaxis DVT Prophylaxis DVT: Lovenox Assessment/Plan - Assessment and Plan (Free Text) Assessment: 63 y/o male, admitted for 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 Comatose Acute CVA/Coma -Pontine infarct with extension to midbrain. Smaller cerebellar infarcts b/l -Intubated and mechanically ventilated -GCS 4T -c/w respiratory support and tube feedings -Neuro on board -C/W ASA and Plavix -Poor prognosis. -Decision regarding PEG/Trach placement deferred at this time by Temporary guardianship Respiratory Failure secondary CVA -2/2 to Acute CVA -intubated -C/W same vent settings: RR 16, Vt 450, FIO2 50, PEEP 5 -CXR unchanged today -Monitor ABGs Strep + on tracheostomy secretions -CXR left lower base atelectasis -C/w Unasyn IV -Fevers -BCx no growth -Mechanically ventilated Anemia of Unknown Etiology -Monitor V/S. Consider blood transfusion if Hgb<7 or hemodinamically unstable -No clinical evidence of acute bleeding Prophylaxis -Head of bed elevation @ 30 degrees -Pepcid 40 mg daily -Lovenox 40mg SC QD -SCDs <Talib Montejo - Last Filed: 12/30/17 09:47> CCU Subjective - Physician Review Subjective (Free Text): Attestation: Patient seen and examined at the bedside with Resident Dr. Jayson Duncan; and I agree with his outline of plans and management documented below as discussed on AM rounds reflecting my review of all applicable clinical data, and participation in the care of the patient throughout the day in ICU; today, December 30, 2017.
--- NOTE | 2017-12-30 10:19 | CP.PCM.PN ---
Subjective - Date & Time of Evaluation Date of Evaluation: 12/30/17 Time of Evaluation: 08:00 - Subjective Subjective: Patient seen and examined bedside. Comatose, intubated on MV PRVC AC mode 16/450/5/50 % ABG 52/108/37/7.5 ,not on any pressors BP 121/77,persistently febrile overenight with Tmax 103 Pupils unequal not reactive to light. Gag and cornea reflex present , not withdrawing to painful stimuli, breathing over the vent WBC 9.5 Hgb 10 plt 318 k Objective - Vital Signs/Intake and Output Vital Signs (last 24 hours): Temp Pulse Resp BP Pulse Ox 102 F H 97 H 16 121/77 100 12/30/17 09:38 12/30/17 10:00 12/30/17 10:00 12/30/17 10:00 12/30/17 10:00 Intake and Output: 12/30/17 12/30/17 06:59 18:59 Intake Total 450 430 Output Total 1400 Balance -950 430 - Medications Medications: Current Medications Acetaminophen (Tylenol 650mg/20.3ml Solution Ud) 650 mg PO Q6 PRN PRN Reason: fever > 100.4 Last Admin: 12/30/17 09:38 Dose: 650 mg Aspirin (Aspirin Chewable) 81 mg NG DAILY [facility] Last Admin: 12/30/17 08:24 Dose: 81 mg Atorvastatin Calcium (Lipitor) 40 mg PO HS [facility] Last Admin: 12/29/17 21:04 Dose: 40 mg Clopidogrel Bisulfate (Plavix) 75 mg NG DAILY [facility] Last Admin: 12/30/17 08:24 Dose: 75 mg Enoxaparin Sodium (Lovenox) 40 mg SC HS [facility] PRN Reason: Protocol Last Admin: 12/29/17 21:04 Dose: 40 mg Famotidine (Pepcid) 40 mg PO DAILY [facility] Last Admin: 12/30/17 08:26 Dose: 40 mg Ferrous Sulfate (Feosol Liq) 300 mg PO DAILY [facility] Last Admin: 12/30/17 08:24 Dose: 300 mg Folic Acid (Folic Acid) 1 mg GT DAILY [facility] Last Admin: 12/30/17 08:24 Dose: 1 mg Ampicillin Sodium/Sulbactam (Sodium 1.5 gm/ Sodium Chloride) 100 mls @ 100 mls/ hr IVPB Q6 [facility] PRN Reason: Protocol Last Admin: 12/30/17 09:15 Dose: 100 mls/hr Thiamine HCl (Vitamin B1 Tab) 100 mg NG DAILY [facility] Last Admin: 12/30/17 08:24 Dose: 100 mg - Labs Labs: 12/30/17 04:20 12/30/17 04:20 PT 14.1 Seconds (9.8-13.1) H 12/01/17 09:44 INR 1.3 (0.9-1.2) H 12/01/17 09:44 APTT 34.4 Seconds (25.6-37.1) 12/01/17 09:44 - Constitutional Appears: Other (intubated , comatose ) - Eye Exam Pupil Exam: Fixed, Unequal - ENT Exam ENT Exam: Normal Exam - Neck Exam Neck Exam: Normal Inspection - Respiratory Exam Respiratory Exam: Decreased Breath Sounds (bibasilar ), Rhonchi Additional comments: intubated - Cardiovascular Exam Cardiovascular Exam: Tachycardia, RRR. absent: JVD - GI/Abdominal Exam GI & Abdominal Exam: Soft, Normal Bowel Sounds, Rebound. absent: Distended, Guarding - Rectal Exam Rectal Exam: Deferred - Extremities Exam Extremities Exam: Normal Inspection. absent: Joint Swelling, Pedal Edema - Neurological Exam Additional comments: comatose does not withdraw to painful stimuli Cornea and gag reflex present Breathing over the vent pupils unequal size fixed , not responsive to light stimuli - Psychiatric Exam Additional comments: comatose - Skin Skin Exam: Dry, Pallor, Warm Assessment and Plan - Assessment and Plan (Free Text) Assessment: 62 y/o White male , initially admitted as Tez White , now identified by Police as Jesus Grayson , unknown PMH was brought by EMS after he was observed by bystanders falling in the street. Patient was lethargic on admission however arousable , noted to have a facial droop and his speech was slurred. 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 He was transferred to ICU and intubated for airway protection. Repeat CT of head showed no change but MRI showed pontine, midbrain, cerebellar hemispheres and thalami infarct. 11/22: With episode of vomiting and possible aspiration became hypotensive, tachycardic, febrile, and hypoxemic Repeat CT head 11/28 showed :Gross edematous changes affect cerebellar hemispheres bilaterally sparing only the inferior margins somewhat and causing compression on the the mid to lower brainstem. The 4th ventricle is partially effaced but no obstructive hydrocephalus appreciated at this time. Edema has extend into the bilateral thalami, right greater than left further indicative of expanding infarction. No intracranial hemorrhage. Patient is comatose. Today his pupils are unequal size ( right 4 m, left 2 mm ) not reactive to light stimuli, gag and cornea reflex present , not withdrawing to painful stimuli Given patient's poor prognosis medical team following him has decided that it is appropriate to " not Escalate treatment " and DNR order placed. Ethics Committee meeting recommended Emergency guardianship which is in progress. Temporary guardians came to hospital 12/20 and received all information in regards to patient's medical condition and prognosis.They agreed to DNR order, no trache , no peg for now. 1. Acute CVA/ Coma state Patient is comatose , pupils fixed , unequal size not reactive to light ,gag reflex present. Breaths over the vent and maintains his BP MRI brain showed pontine , midbrain, cerebellar hemispheres and thalamic infarct Repeat CT of head 11/28 showed :Gross edematous changes affect cerebellar hemispheres bilaterally sparing only the inferior margins somewhat and causing compression on the the mid to lower brainstem. The 4th ventricle is partially effaced but no obstructive hydrocephalus appreciated at this time. Edema has extend into the bilateral thalami, right greater than left further indicative of expanding infarction. No intracranial hemorrhage. Poor Prognosis Neurology on consult Continue ASA, Statin, Plavix [facility] network has been notified Given patient's poor prognosis medical team following him has decided a Do not Escalate treatment and DNR order in place. Temporary guardianship is in effect and agrees to DNR order Repeat CT of head 12/26 -Interval evolution previously noted of large acute infarct which involves keshia in both cerebellar hemispheres including vermis. There also has been interval evolution of posterior bilateral basal nuclei ischemic changes Diffuse/confluent chronic periventricular white matter ischemic changes extending peripherally into the deep and subcortical white matter both cerebral hemispheres. In addition, there are multiple additional chronic appearing bilateral basal nuclei lacunar type infarcts also seen. There is persistent dilatation of the temporal horns and atria bilaterally likely due to asymmetric central volume loss most pronounced in the posterior temporal lobes and occipital parietal regions Discussed case with Dr Mcneill - he does not feel that pt would improved or have meaningful life ahead- pt has extensive CVA , brain does not communicate with spinal cord. 12/27 : Temporary Guardian- George Garland , given pt's very poor prognosis/ comatose state , discussed plan for Trach/PEG vs withdrawal of care - she stated that since she is not in the medical field and does not know pt, she would like to defer this decision and wait for the Public Guardianship to decide of these. 2. Sepsis due to Aspiration Pneumonia-resolved Still orally Intubated since 11/16 ( ET tube changed 12/09) on Vent (PVRC/AC 16/450 /5/50%) procalcitonin was elevated , intermittent fever Off Levophed, all antibiotics d/c trachea aspirate: positive for Citrobacter and 1 blood cx positive for Staph coag negative ( ? contaminant),repeat blood cultures negative completed IV antibiotic treatment with Cipro and Vanco - now off antibiotics ID consulted : Dr. Anderson Keep HOB elevated , aspiration, precautions,respiratory toilet with frequent suctioning CXR showed no infiltrate today Repeat Trach Aspirate c/s : Beta hemolytic Strep - Unasyn started on 12/26 3. Atelectasis , left lung likely from mucus plugging CXR showed whole left lung white out and presently opened Trach Asp C/S: Beta hemolytic Strep- Unasyn started by Dr Finn Continue Deep suctioning by Respiratory team CXR today shows no infiltrate 4. UTI-treated urine cx positive for Strep viridans - completed treatment with Vanco IV for 2 weeks 5. ? Alcoholism unclear if alcoholic, cannot obtain hx however ED note stated that patient has history of ETOH ETOH level low urine Tox : neg cont Thiamine and FA 6. Anemia, chronic dis sl. drop during hospitalization likely due to acute medical condition, blood drawing will hold off on transfusion unless Hgb drops to less than 7 ot if pt shows any signs on hemodynamic instability/. 7.DVT prophylaxis Acute Lovenox
[2017-12-30] MEDS: Enoxaparin 40 mg Syringe SC SCH (22:39)
[2017-12-31 04:12] LABS: ABG ALLEN TEST YES; ARTERIAL BLOOD GAS HCO3 38.4 mmol/L (21-28); ARTERIAL BLOOD GAS HEMOGLOBIN 9.1 g/dL (11.7-17.4); ARTERIAL BLOOD GAS O2 CAPACITY 12.5 mL/dL (16-24); ARTERIAL BLOOD GAS O2 CONTENT 12.2 ML/dL (15-23); ARTERIAL BLOOD GAS O2 SAT 97.7 % (95-98); ARTERIAL BLOOD GAS PCO2 61 mm/Hg (35-45); ARTERIAL BLOOD GAS PH 7.46 (7.35-7.45); ARTERIAL BLOOD GAS PO2 71 mm/Hg (80-100); ARTERIAL BLOOD GAS TCO2 45.3 mmol/L (22-28)
--- NOTE | 2017-12-31 08:34 | CP.CCUPN ---
CCU Subjective - Physician Review Events Since Last Encounter (Free Text): 12/31/17 08:27 No change in condition, unresponsive, labs and meds reviewed, ABG showed higher Co2, vent setting adjusted with rate increased to 18/m CCU Objective - Vital Signs / Intake & Output Vital Signs (Last 4 hours): Vital Signs Pulse Resp BP Pulse Ox 12/31/17 06:50 98 H 16 119/74 96 12/31/17 06:20 15 79 L 12/31/17 06:00 97 H 16 109/74 98 Intake and Output (Last 8hrs): Intake & Output 12/30/17 12/31/17 12/31/17 22:59 06:59 14:59 Intake Total 920 790 Output Total 600 600 Balance 320 190 Intake: Intake, Piggyback 200 100 Tube Feeding 420 540 Free Water Flush 300 150 Output: Urine 600 600 2-way Urethral 600 600 - Physical Exam Narrative Physical Exam (Free Text): 12/31/17 08:28 P/E neck: No JVD Lungs: Rt basal crackles Abdomen: soft, no-tender Ext: + 1 edema Heart: No gallop Head: Positive for: Atraumatic, Normocephalic. Negative for: Ecchymosis, Abrasion, Laceration Pupils: Negative for: PERRL Extroacular Muscles: Negative for: EOMI Conjunctiva: Positive for: Normal. Negative for: Injected, Icteric Ears: Positive for: Normal Mouth: Positive for: Moist Mucous Membranes Pharnyx: Negative for: ERYTHEMA, EXUDATE, TONSILS ENLARGED Neck: Positive for: Trachea Midline. Negative for: JVD, Lymphadenopathy Respiratory/Chest: Positive for: Clear to Auscultation ( distant breath sounds b /l). Negative for: Rales, Retracting, Rhonchi Cardiovascular: Positive for: Regular Rate and Rhythm, Normal S1, S2, Peripheal Pulses Present (faint). Negative for: Rub, Gallop Abdomen: Positive for: Normal Bowel Sounds. Negative for: Distention, Peritoneal Signs Upper Extremity: Positive for: Capillary Refill < 2s. Negative for: Cyanosis, Erythema Lower Extremity: Negative for: Normal Inspection (DTI), Edema, NORMAL PULSES ( faint), Swelling, Temperature Abnormalties Neurological: Positive for: Other (on ventilator, no response to verbal stimuli) . Negative for: GCS=15 (4T), Speech Normal, Motor Func Grossly Intact, Normal Sensory Function Skin: Positive for: Dry. Negative for: Laceration Lymphatic: Negative for: Cervical Adenopathy Psychiatric: Positive for: Other (comatose). Negative for: Alert, Oriented x 3 - Medications Active Medications: Active Medications Generic Name Dose Route Start Last Admin Trade Name Freq PRN Reason Stop Dose Admin Acetaminophen 650 mg 11/27/17 00:56 12/30/17 09:38 Tylenol 650mg/20.3ml Solution Ud PO 650 mg Q6 PRN Administration fever > 100.4 Aspirin 81 mg 11/19/17 09:00 12/30/17 08:24 Aspirin Chewable NG 81 mg DAILY [facility] Administration Atorvastatin Calcium 40 mg 11/17/17 22:00 12/30/17 21:21 Lipitor PO 40 mg HS [facility] Administration Clopidogrel Bisulfate 75 mg 11/18/17 09:45 12/30/17 08:24 Plavix NG 75 mg DAILY [facility] Administration Enoxaparin Sodium 40 mg 12/22/17 22:00 12/30/17 22:39 Lovenox SC 40 mg HS [facility] Administration Protocol Famotidine 40 mg 12/02/17 09:00 12/30/17 08:26 Pepcid PO 40 mg DAILY [facility] Administration Ferrous Sulfate 300 mg 12/18/17 09:00 12/30/17 08:24 Feosol Liq PO 300 mg DAILY [facility] Administration Folic Acid 1 mg 11/17/17 09:00 12/30/17 08:24 Folic Acid GT 1 mg DAILY [facility] Administration Ampicillin Sodium/Sulbactam 100 mls @ 100 mls/hr 12/26/17 16:00 12/31/17 03: 02 Sodium 1.5 gm/ Sodium Chloride IVPB 100 mls/hr Q6 [facility] Administration Protocol Thiamine HCl 100 mg 12/12/17 09:00 12/30/17 08:24 Vitamin B1 Tab NG 100 mg DAILY [facility] Administration - Patient Studies Lab Studies: Lab Studies 12/31/17 Range/Units 04:00 pCO2 61 H (35-45) mm/Hg pO2 71 L (80-100) mm/Hg HCO3 38.4 H (21-28) mmol/L ABG pH 7.46 H (7.35-7.45) ABG Total CO2 45.3 H (22-28) mmol/L ABG O2 Saturation 97.7 (95-98) % ABG O2 Content 12.2 L (15-23) ML/dL ABG Base Excess 17.3 H (-2.0-3.0) mmol/L ABG Hemoglobin 9.1 L (11.7-17.4) g/dL ABG Carboxyhemoglobin 2.1 H (0.5-1.5) % POC ABG HHb (Measured) 2.2 (0.0-5.0) % ABG Methemoglobin 1.2 (0.0-3.0) % ABG O2 Capacity 12.5 L (16-24) mL/dL Roberto Test Yes A-a O2 Difference 209.0 mm/Hg Hgb O2 Saturation 94.5 L (95.0-98.0) % Vent Mode A/c Mechanical Rate 16 FiO2 50.0 % Tidal Volume 450 PEEP 5 Laboratory Results - last 24 hr 12/31/17 04:00 pCO2 61 H pO2 71 L HCO3 38.4 H ABG pH 7.46 H ABG Total CO2 45.3 H ABG O2 Saturation 97.7 ABG O2 Content 12.2 L ABG Base Excess 17.3 H ABG Hemoglobin 9.1 L ABG Carboxyhemoglobin 2.1 H POC ABG HHb (Measured) 2.2 ABG Methemoglobin 1.2 ABG O2 Capacity 12.5 L Roberto Test Yes A-a O2 Difference 209.0 Hgb O2 Saturation 94.5 L Vent Mode A/c Mechanical Rate 16 FiO2 50.0 Tidal Volume 450 PEEP 5 Fingerstick Blood Sugar Results: 142 Assessment/Plan - Assessment and Plan (Free Text) Assessment: 1-CVA Patient is comatose , pupils fixed , unequal size not reactive to light ,gag reflex present. Breaths over the vent and maintains his BP MRI brain showed pontine , midbrain, cerebellar hemispheres and thalamic infarct Very poor prognosis On ASA, Statin, Plavix Given patient's poor prognosis medical team following him has decided a Do not Escalate treatment and DNR order in place. Temporary guardianship is in effect and agrees to DNR order Repeat CT of head 12/26 -Interval evolution previously noted of large acute infarct which involves keshia in both cerebellar hemispheres including vermis. There also has been interval evolution of posterior bilateral basal nuclei ischemic changes Diffuse/confluent chronic periventricular white matter ischemic changes extending peripherally into the deep and subcortical white matter both cerebral hemispheres. In addition, there are multiple additional chronic appearing bilateral basal nuclei lacunar type 12/27 : Temporary Guardian- George Garland , given pt's very poor prognosis/ comatose state , discussed plan for Trach/PEG vs withdrawal of care - she stated that since she is not in the medical field and does not know pt, she would like to defer this decision and wait for the Public Guardianship to decide of these. 2. Resp failure, aspiration PNA , sepsis Still orally Intubated since 11/16 ( ET tube changed 12/09) on Vent (PVRC/AC 16/450 /5/50%) procalcitonin was elevated , intermittent fever Off Levophed, all antibiotics d/c completed IV antibiotic treatment with Cipro and Vanco - now off antibiotics Keep HOB elevated , aspiration, precautions,respiratory toilet with frequent suctioning CXR showed no infiltrate today Vent setting adjusted, AC, VT 450 PEEP 5 Rate 18/m Fio 0.50 3. UTI-treated urine cx positive for Strep viridans - completed treatment with Vanco IV for 2 weeks 4. Anemia, chronic dis sl. drop during hospitalization likely due to acute medical condition, blood drawing will hold off on transfusion unless Hgb drops to less than 7 ot if pt shows any signs on hemodynamic instability/. 5.DVT prophylaxis Acute Lovenox
[2017-12-31] MEDS: Ferrous Sulfate 300 mg/5 mL Liq UD PO SCH (09:24)
--- NOTE | 2017-12-31 10:11 | RAD ---
HISTORY: intubated COMPARISON: Frontal chest 12/30/2017. FINDINGS: LUNGS: Endotracheal and nasogastric tubes are not significantly changed in position grossly. Significant interval improvement of left base is appreciated with only coarse bronchovascular markings identified at the bilateral bases at this time. PLEURA: No significant pleural effusion identified, no pneumothorax apparent. CARDIOVASCULAR: Normal. OSSEOUS STRUCTURES: No significant abnormalities. VISUALIZED UPPER ABDOMEN: Normal. OTHER FINDINGS: None. IMPRESSION: Resolution of left basilar airspace disease and trace left pleural effusion. Mildly coarsened bronchovascular markings identified the bases.
[2017-12-31 10:25] LABS: HEMOGLOBIN 9.1 g/dL (12.0-18.0); MEAN CELL VOLUME 93.5 fl (80.0-94.0); MEAN CORPUSCULAR HEMOGLOBIN 31.5 pg (27.0-31.0); MEAN CORPUSCULAR HGB CONC 33.7 g/dL (33.0-37.0); RBC 2.88 Mil/uL (4.40-5.90); RED CELL DISTRIBUTION WIDTH 18.9 % (11.5-14.5); WHITE BLOOD COUNT 10.2 K/uL (4.8-10.8)
[2017-12-31 11:23] LABS: BLOOD UREA NITROGEN 19 mg/dl (9-20); GFR AFRICAN-AMERICAN > 60; GFR NON-AFRICAN AMERICAN > 60
--- NOTE | 2017-12-31 12:49 | CP.PCM.PN ---
Subjective - Date & Time of Evaluation Date of Evaluation: 12/31/17 Time of Evaluation: 10:00 - Subjective Subjective: Pt remains intubated on Mech Vent 18/450/5/50% Febrile Responds to deep pain by sl movement of shoulders Breaths over the Vent Right pupil dilated more than left - NRTL Tolerating tube feeding Objective - Vital Signs/Intake and Output Vital Signs (last 24 hours): Temp Pulse Resp BP Pulse Ox 98.1 F 92 H 18 101/74 100 12/31/17 12:00 12/31/17 12:00 12/31/17 12:00 12/31/17 12:00 12/31/17 12:00 Intake and Output: 12/31/17 12/31/17 06:59 18:59 Intake Total 1220 610 Output Total 600 Balance 620 610 - Medications Medications: Current Medications Acetaminophen (Tylenol 650mg/20.3ml Solution Ud) 650 mg PO Q6 PRN PRN Reason: fever > 100.4 Last Admin: 12/30/17 09:38 Dose: 650 mg Aspirin (Aspirin Chewable) 81 mg NG DAILY [facility] Last Admin: 12/31/17 09:24 Dose: 81 mg Atorvastatin Calcium (Lipitor) 40 mg PO HS [facility] Last Admin: 12/30/17 21:21 Dose: 40 mg Clopidogrel Bisulfate (Plavix) 75 mg NG DAILY [facility] Last Admin: 12/31/17 09:24 Dose: 75 mg Enoxaparin Sodium (Lovenox) 40 mg SC HS [facility] PRN Reason: Protocol Last Admin: 12/30/17 22:39 Dose: 40 mg Famotidine (Pepcid) 40 mg PO DAILY [facility] Last Admin: 12/31/17 09:27 Dose: 40 mg Ferrous Sulfate (Feosol Liq) 300 mg PO DAILY [facility] Last Admin: 12/31/17 09:24 Dose: 300 mg Folic Acid (Folic Acid) 1 mg GT DAILY [facility] Last Admin: 12/31/17 09:25 Dose: 1 mg Ampicillin Sodium/Sulbactam (Sodium 1.5 gm/ Sodium Chloride) 100 mls @ 100 mls/ hr IVPB Q6 [facility] PRN Reason: Protocol Last Admin: 12/31/17 09:25 Dose: 100 mls/hr Thiamine HCl (Vitamin B1 Tab) 100 mg NG DAILY [facility] Last Admin: 12/31/17 09:24 Dose: 100 mg - Labs Labs: 12/31/17 10:00 12/31/17 10:00 PT 14.1 Seconds (9.8-13.1) H 12/01/17 09:44 INR 1.3 (0.9-1.2) H 12/01/17 09:44 APTT 34.4 Seconds (25.6-37.1) 12/01/17 09:44 - Constitutional Appears: chronically ill, Intubated on Vent - Head Exam Head Exam: NORMAL INSPECTION, NORMOCEPHALIC - Eye Exam Eye Exam: Pupil Exam: Fixed, not reactive to light, R pupil > L - ENT Exam ENT Exam: Mucous Membranes Dry, Normal External Ear Exam - Neck Exam Neck Exam: absent: Meningismus - Respiratory Exam Respiratory Exam: Rhonchi, coarse rales Additional comments: Intubated on Vent - Cardiovascular Exam Cardiovascular Exam: REGULAR RHYTHM, +S1, +S2 - GI/Abdominal Exam GI & Abdominal Exam: Soft, Normal Bowel Sounds OGT in place - Extremities Exam Extremities Exam: Pedal Edema, edematous upper ext - Neurological Exam Additional comments: responds to deep pain by sl movement fixed pupils no gag reflex breathes over the Vent Assessment and Plan (1) Acute CVA (cerebrovascular accident) Status: Acute (2) Altered mental status Status: Acute (3) Slurring of speech Status: Acute (4) HTN (hypertension) Status: Chronic (5) Acute metabolic encephalopathy Status: Acute (6) Acute respiratory insufficiency Status: Acute (7) DVT prophylaxis Status: Acute - Assessment and Plan (Free Text) Assessment: 62 y/o White male , initially admitted as Tez White , now identified by Police as Jesus Grayson , unknown PMH was brought by EMS after he was observed by bystanders falling in the street. Patient was lethargic on admission however arousable , noted to have a facial droop and his speech was slurred. 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 He was transferred to ICU and intubated for airway protection. Repeat CT of head showed no change but MRI showed pontine, midbrain, cerebellar hemispheres and thalami infarct. 11/22: With episode of vomiting and possible aspiration became hypotensive, tachycardic, febrile, and hypoxemic Repeat CT head 11/28 showed :Gross edematous changes affect cerebellar hemispheres bilaterally sparing only the inferior margins somewhat and causing compression on the the mid to lower brainstem. The 4th ventricle is partially effaced but no obstructive hydrocephalus appreciated at this time. Edema has extend into the bilateral thalami, right greater than left further indicative of expanding infarction. No intracranial hemorrhage. Patient is comatose. Today his pupils are unequal size ( right 4 m, left 2 mm ) not reactive to light stimuli, gag and cornea reflex present , not withdrawing to painful stimuli Given patient's poor prognosis medical team following him has decided that it is appropriate to " not Escalate treatment " and DNR order placed. Ethics Committee meeting recommended Emergency guardianship which is in progress. Temporary guardians came to hospital 12/20 and received all information in regards to patient's medical condition and prognosis.They agreed to DNR order, no trache , no peg for now. 1. Acute CVA/ Coma state Patient is comatose , pupils fixed , unequal size not reactive to light ,gag reflex present. Breaths over the vent and maintains his BP MRI brain showed pontine , midbrain, cerebellar hemispheres and thalamic infarct Repeat CT of head 11/28 showed :Gross edematous changes affect cerebellar hemispheres bilaterally sparing only the inferior margins somewhat and causing compression on the the mid to lower brainstem. The 4th ventricle is partially effaced but no obstructive hydrocephalus appreciated at this time. Edema has extend into the bilateral thalami, right greater than left further indicative of expanding infarction. No intracranial hemorrhage. Poor Prognosis Neurology on consult Continue ASA [facility] has been notified Given patient's poor prognosis medical team following him has decided a Do not Escalate treatment and DNR order in place. Temporary guardianship is in effect and agrees to DNR order Repeat CT of head 12/26 -Interval evolution previously noted of large acute infarct which involves keshia in both cerebellar hemispheres including vermis. There also has been interval evolution of posterior bilateral basal nuclei ischemic changes Diffuse/confluent chronic periventricular white matter ischemic changes extending peripherally into the deep and subcortical white matter both cerebral hemispheres. In addition, there are multiple additional chronic appearing bilateral basal nuclei lacunar type infarcts also seen. There is persistent dilatation of the temporal horns and atria bilaterally likely due to asymmetric central volume loss most pronounced in the posterior temporal lobes and occipital parietal regions Discussed case with Dr Mcneill - he does not feel that pt would improved or have meaningful life ahead- pt has extensive CVA , brain does not communicate with spinal cord. 12/27 : Temporary Guardian- George Garland , given pt's very poor prognosis/ comatose state , discussed plan f withdrawal of care - she stated that since she is not in the medical field and does not know pt, she would like to defer this decision and wait for the Public Guardianship to decide of these. 12/31: Temp Guardian agrees to Trach and PEG placement- will consult Surgery Hold off on ASA and PLavix as pt is for Trach and PEG 2. Sepsis due to Aspiration Pneumonia-resolved Still orally Intubated since 11/16 ( ET tube changed 12/09) on Vent (PVRC/AC 16/450 /5/50%) procalcitonin was elevated , intermittent fever Off Levophed, all antibiotics d/c trachea aspirate: positive for Citrobacter and 1 blood cx positive for Staph coag negative ( ? contaminant),repeat blood cultures negative completed IV antibiotic treatment with Cipro and Vanco - now off antibiotics ID consulted : Dr. Anderson Keep HOB elevated , aspiration, precautions,respiratory toilet with frequent suctioning CXR showed no infiltrate today Repeat Trach Aspirate c/s : Beta hemolytic Strep - Unasyn started on 12/26 #11/14 3. Atelectasis , left lung likely from mucus plugging CXR showed whole left lung white out and presently opened Trach Asp C/S: Beta hemolytic Strep- Unasyn started by Dr Finn Continue Deep suctioning by Respiratory team CXR today shows no infiltrate 4. UTI-treated urine cx positive for Strep viridans - completed treatment with Vanco IV for 2 weeks 5. ? Alcoholism unclear if alcoholic, cannot obtain hx however ED note stated that patient has history of ETOH ETOH level low urine Tox : neg cont Thiamine and FA 6. Anemia, chronic dis sl. drop during hospitalization likely due to acute medical condition, blood drawing will hold off on transfusion unless Hgb drops to less than 7 or if pt shows any signs on hemodynamic instability/. 7.DVT prophylaxis Acute Lovenox
--- NOTE | 2017-12-31 18:30 | CP.PCM.CON ---
<Arturo Medina - Last Filed: 12/31/17 18:04> History of Present Illness - History of Present Illness History of Present Illness: Surgery Consult note. Dr. Junior Consulted for Trach/PEG placement History obtained from chart review due to patient's current status. 62yo M who was brought in for evaluation on 11/14/17 after he was found dysarthric , lethargic, and with an unsteady gait. He was found to have evidence of acute pontine infarcts with smaller infarcts in the midbrain, cerebellum and thalami. Intubated on 11/16/17 for airway protection and unable to be weaned. Currently on the Vent with settings: PRVC A/C 450/18/5/50%. He has a court appointed temporary POA: George Garland, who agrees to make patient DNR and agrees to undergo Trach/PEG for patient comfort. Complete patient history unable to be obtained due to patient's current obtunded state. A full 12-point ROS unobtainable. Court Appointed Guardian (POA): George Garland ([phone]) PMHx: Unknown PSHx: Unknown (has right lower inguinal hernia repair well healed surgical scar) Social Hx: Unknown Family Hx: Unobtainable Allergy: Unknown Review of Systems - Review of Systems Systems not reviewed;Unavailable: Altered Mental Status, Intubated Past Patient History - Past Medical History & Family History Past Medical History?: No - Past Social History Smoking Status: unknown - MUSCULOSKELETAL/RHEUMATOLOGICAL Hx Falls: (unknown) - PSYCHIATRIC Hx Substance Use: No (Unknown) - SURGICAL HISTORY Hx Surgeries: No Other/Comment: Unknown - ANESTHESIA Hx Anesthesia: (unknown) Meds Allergies/Adverse Reactions: Allergies Allergy/AdvReac Type Severity Reaction Status Date / Time Unobtainable Allergy Verified 11/14/17 15:27 - Medications Medications: Current Medications Acetaminophen (Tylenol 650mg/20.3ml Solution Ud) 650 mg PO Q6 PRN PRN Reason: fever > 100.4 Last Admin: 12/30/17 09:38 Dose: 650 mg Aspirin (Aspirin Chewable) 81 mg NG DAILY [facility] Last Admin: 12/31/17 09:24 Dose: 81 mg Atorvastatin Calcium (Lipitor) 40 mg PO HS [facility] Last Admin: 12/30/17 21:21 Dose: 40 mg Clopidogrel Bisulfate (Plavix) 75 mg NG DAILY [facility] Last Admin: 12/31/17 09:24 Dose: 75 mg Enoxaparin Sodium (Lovenox) 40 mg SC HS [facility] PRN Reason: Protocol Last Admin: 12/30/17 22:39 Dose: 40 mg Famotidine (Pepcid) 40 mg PO DAILY [facility] Last Admin: 12/31/17 09:27 Dose: 40 mg Ferrous Sulfate (Feosol Liq) 300 mg PO DAILY [facility] Last Admin: 12/31/17 09:24 Dose: 300 mg Folic Acid (Folic Acid) 1 mg GT DAILY [facility] Last Admin: 12/31/17 09:25 Dose: 1 mg Ampicillin Sodium/Sulbactam (Sodium 1.5 gm/ Sodium Chloride) 100 mls @ 100 mls/ hr IVPB Q6 [facility] PRN Reason: Protocol Last Admin: 12/31/17 16:53 Dose: 100 mls/hr Thiamine HCl (Vitamin B1 Tab) 100 mg NG DAILY [facility] Last Admin: 12/31/17 09:24 Dose: 100 mg Physical Exam - Constitutional Appears: Older Than Stated Age, Chronically Ill - Head Exam Head Exam: ATRAUMATIC, NORMAL INSPECTION, NORMOCEPHALIC - Eye Exam Eye Exam: absent: Conjunctival injection, Scleral icterus Pupil Exam: Fixed Additional comments: minimally reactive to light. - ENT Exam ENT Exam: Mucous Membranes Moist Additional comments: Intubated and ETT secured at 23cm at the lip. - Neck Exam Neck exam: Positive for: Normal Inspection. Negative for: Lymphadenopathy, Thyromegaly - Respiratory Exam Additional comments: Intubated and on vent. PRVC A/C 18RR, 450TV, PEEP 5, FiO2 50%. OGT in place with tube feedings ongoing. - Cardiovascular Exam Cardiovascular Exam: absent: JVD - GI/Abdominal Exam GI & Abdominal Exam: Soft. absent: Distended, Firm, Guarding, Rebound, Rigid, Tenderness Additional comments: presumed right inguinal hernia well-healed scar present. Soft, non-tender, non-distended. - Exam External exam: Swelling Additional comments: Holloway in place with yellow urine output - Extremities Exam Additional comments: diffusely edematous - Neurological Exam Additional comments: decerebrate posturing to deeply painful stimuli. No purposeful movements noted. No spontaneous eye movements - Skin Skin Exam: Dry, Intact, Normal Color, Warm Results - Vital Signs Recent Vital Signs: Last Vital Signs Temp 99 F 12/31/17 16:00 Pulse 98 H 12/31/17 16:00 Resp 18 12/31/17 16:00 BP 125/76 12/31/17 16:00 Pulse Ox 100 12/31/17 16:00 - Labs Result Diagrams: 12/31/17 10:00 12/31/17 10:00 Labs: Laboratory Results - last 24 hr 12/31/17 12/31/17 12/31/17 04:00 10:00 10:00 WBC 10.2 RBC 2.88 L Hgb 9.1 L Hct 26.9 L MCV 93.5 MCH 31.5 H MCHC 33.7 RDW 18.9 H Plt Count 283 pCO2 61 H pO2 71 L HCO3 38.4 H ABG pH 7.46 H ABG Total CO2 45.3 H ABG O2 Saturation 97.7 ABG O2 Content 12.2 L ABG Base Excess 17.3 H ABG Hemoglobin 9.1 L ABG Carboxyhemoglobin 2.1 H POC ABG HHb (Measured) 2.2 ABG Methemoglobin 1.2 ABG O2 Capacity 12.5 L Roberto Test Yes A-a O2 Difference 209.0 Hgb O2 Saturation 94.5 L Vent Mode A/c Mechanical Rate 16 FiO2 50.0 Tidal Volume 450 PEEP 5 Sodium 136 Potassium 4.0 Chloride 91 L Carbon Dioxide 41 H* Anion Gap 8 L BUN 19 Creatinine 0.4 L Est GFR ( Amer) > 60 Est GFR (Non-Af Amer) > 60 Random Glucose 107 Calcium 8.0 L Assessment & Plan - Assessment and Plan (Free Text) Assessment: 62yo M in comatose state. Surgery consulted for Trach/PEG Plan: - Recommend GI consult and evaluation for PEG placement - Hold ASA/Plavix for now - Will hold Lovenox 40mg SC depending on exact timing of possible Trach placement. Will hold tube feeds at midnight prior - f/u repeat coags as ordered for the AM - f/u AM labs - wean FiO2 to <40% - Maintain PEEP 5 - will obtain consent for Trach from the court appointed POA: George Garland ) - continue vent management as per ICU team Further recs as per Dr. Sandi Medina PGY1 surgery pager: [phone] <Chris Junior - Last Filed: 12/31/17 21:03> History of Present Illness - History of Present Illness History of Present Illness: Patient was seen and examined at the bedside. Agree with resident's note above. Meds - Medications Medications: Current Medications Acetaminophen (Tylenol 650mg/20.3ml Solution Ud) 650 mg PO Q6 PRN PRN Reason: fever > 100.4 Last Admin: 12/30/17 09:38 Dose: 650 mg Aspirin (Aspirin Chewable) 81 mg NG DAILY [facility] Last Admin: 12/31/17 09:24 Dose: 81 mg Atorvastatin Calcium (Lipitor) 40 mg PO HS [facility] Last Admin: 12/30/17 21:21 Dose: 40 mg Clopidogrel Bisulfate (Plavix) 75 mg NG DAILY [facility] Last Admin: 12/31/17 09:24 Dose: 75 mg Enoxaparin Sodium (Lovenox) 40 mg SC HS [facility] PRN Reason: Protocol Last Admin: 12/30/17 22:39 Dose: 40 mg Famotidine (Pepcid) 40 mg PO DAILY [facility] Last Admin: 12/31/17 09:27 Dose: 40 mg Ferrous Sulfate (Feosol Liq) 300 mg PO DAILY [facility] Last Admin: 12/31/17 09:24 Dose: 300 mg Folic Acid (Folic Acid) 1 mg GT DAILY [facility] Last Admin: 12/31/17 09:25 Dose: 1 mg Ampicillin Sodium/Sulbactam (Sodium 1.5 gm/ Sodium Chloride) 100 mls @ 100 mls/ hr IVPB Q6 [facility] PRN Reason: Protocol Last Admin: 12/31/17 16:53 Dose: 100 mls/hr Thiamine HCl (Vitamin B1 Tab) 100 mg NG DAILY [facility] Last Admin: 12/31/17 09:24 Dose: 100 mg Results - Vital Signs Recent Vital Signs: Last Vital Signs Temp 99.3 F 12/31/17 19:48 Pulse 87 12/31/17 19:48 Resp 23 12/31/17 19:48 BP 106/69 12/31/17 19:48 Pulse Ox 100 12/31/17 19:48 - Labs Result Diagrams: 12/31/17 10:00 12/31/17 10:00 Labs: Laboratory Results - last 24 hr 12/31/17 12/31/1718 04:00 10:00 10:00 WBC 10.2 RBC 2.88 L Hgb 9.1 L Hct 26.9 L MCV 93.5 MCH 31.5 H MCHC 33.7 RDW 18.9 H Plt Count 283 pCO2 61 H pO2 71 L HCO3 38.4 H ABG pH 7.46 H ABG Total CO2 45.3 H ABG O2 Saturation 97.7 ABG O2 Content 12.2 L ABG Base Excess 17.3 H ABG Hemoglobin 9.1 L ABG Carboxyhemoglobin 2.1 H POC ABG HHb (Measured) 2.2 ABG Methemoglobin 1.2 ABG O2 Capacity 12.5 L Roberto Test Yes A-a O2 Difference 209.0 Hgb O2 Saturation 94.5 L Vent Mode A/c Mechanical Rate 16 FiO2 50.0 Tidal Volume 450 PEEP 5 Sodium 136 Potassium 4.0 Chloride 91 L Carbon Dioxide 41 H* Anion Gap 8 L BUN 19 Creatinine 0.4 L Est GFR ( Amer) > 60 Est GFR (Non-Af Amer) > 60 Random Glucose 107 Calcium 8.0 L Assessment & Plan - Assessment and Plan (Free Text) Plan: - Titrate down FiO2 - Hold Aspirin and Plavix - Medical clearance prior to surgery - Tentative plan for Tracheostomy once Aspirin and Plavix will wear off - Will follow
[2017-12-31] MEDS: Enoxaparin 40 mg Syringe SC SCH (22:02)
[2018-01-01 07:18] LABS: HEMOGLOBIN 8.4 g/dL (12.0-18.0); MEAN CELL VOLUME 92.9 fl (80.0-94.0); MEAN CORPUSCULAR HGB CONC 33.4 g/dL (33.0-37.0); RBC 2.71 Mil/uL (4.40-5.90); RED CELL DISTRIBUTION WIDTH 18.7 % (11.5-14.5); WHITE BLOOD COUNT 7.1 K/uL (4.8-10.8)
[2018-01-01 07:19] LABS: BLOOD UREA NITROGEN 20 mg/dl (9-20); CALCIUM 7.8 mg/dL (8.4-10.2); GFR AFRICAN-AMERICAN > 60; GFR NON-AFRICAN AMERICAN > 60
[2018-01-01] MEDS ORDERED: Potassium Chloride 20 mEq/15 ml LIQ UD NG ONE (07:29)
[2018-01-01 07:55] LABS: INR 1.1 (0.9-1.2); PARTIAL THROMBOPLASTIN TIME 35.6 Seconds (25.6-37.1); PROTHROMBIN TIME 12.4 Seconds (9.8-13.1)
--- NOTE | 2018-01-01 08:00 | CP.PCM.PN ---
<Gutierrez Nuñez - Last Filed: 01/01/18 08:05> Subjective - Date & Time of Evaluation Date of Evaluation: 01/01/18 Time of Evaluation: 07:00 - Subjective Subjective: Surgery- Dr. Junior Patient seen and examined at bedside this AM. Intubated on PRVC 18 450 50 5. Unable to obtain ROS due to intubation. Nursing notes reviewed. Objective - Vital Signs/Intake and Output Vital Signs (last 24 hours): Temp Pulse Resp BP Pulse Ox 99.1 F 91 H 18 147/90 100 01/01/18 04:00 01/01/18 06:00 01/01/18 06:00 01/01/18 06:00 01/01/18 06:00 Intake and Output: 01/01/18 01/01/18 06:59 18:59 Intake Total 1328 60 Output Total 700 Balance 628 60 - Medications Medications: Current Medications Acetaminophen (Tylenol 650mg/20.3ml Solution Ud) 650 mg PO Q6 PRN PRN Reason: fever > 100.4 Last Admin: 12/30/17 09:38 Dose: 650 mg Aspirin (Aspirin Chewable) 81 mg NG DAILY [facility] Last Admin: 12/31/17 09:24 Dose: 81 mg Atorvastatin Calcium (Lipitor) 40 mg PO HS [facility] Last Admin: 12/31/17 22:00 Dose: 40 mg Clopidogrel Bisulfate (Plavix) 75 mg NG DAILY [facility] Last Admin: 12/31/17 09:24 Dose: 75 mg Enoxaparin Sodium (Lovenox) 40 mg SC HS [facility] PRN Reason: Protocol Last Admin: 12/31/17 22:02 Dose: 40 mg Famotidine (Pepcid) 40 mg PO DAILY [facility] Last Admin: 12/31/17 09:27 Dose: 40 mg Ferrous Sulfate (Feosol Liq) 300 mg PO DAILY [facility] Last Admin: 12/31/17 09:24 Dose: 300 mg Folic Acid (Folic Acid) 1 mg GT DAILY [facility] Last Admin: 12/31/17 09:25 Dose: 1 mg Ampicillin Sodium/Sulbactam (Sodium 1.5 gm/ Sodium Chloride) 100 mls @ 100 mls/ hr IVPB Q6 [facility] PRN Reason: Protocol Last Admin: 01/01/18 04:08 Dose: 100 mls/hr Thiamine HCl (Vitamin B1 Tab) 100 mg NG DAILY [facility] Last Admin: 12/31/17 09:24 Dose: 100 mg - Labs Labs: 01/01/18 07:00 01/01/18 07:00 PT 12.4 Seconds (9.8-13.1) 01/01/18 07:00 INR 1.1 (0.9-1.2) 01/01/18 07:00 APTT 35.6 Seconds (25.6-37.1) 01/01/18 07:00 - Constitutional Appears: Non-toxic, No Acute Distress - Head Exam Head Exam: ATRAUMATIC - ENT Exam ENT Exam: Mucous Membranes Moist - Respiratory Exam Respiratory Exam: absent: Accessory Muscle Use, Respiratory Distress Additional comments: Intubated on PRVC - Cardiovascular Exam Cardiovascular Exam: +S1, +S2. absent: Bradycardia, Tachycardia - GI/Abdominal Exam GI & Abdominal Exam: Soft. absent: Distended, Firm, Guarding, Rigid, Tenderness - Neurological Exam Neurological Exam: absent: Awake - Psychiatric Exam Psychiatric exam: Normal Affect - Skin Skin Exam: Warm Assessment and Plan - Assessment and Plan (Free Text) Assessment: 62M intubated on PRVC. Initial intubation on 11/16/17. Surgery consulted for Trach Plan: - Recommend GI consult and evaluation for PEG placement - Hold ASA/Plavix - Will hold Lovenox 40mg SC depending on exact timing of possible Trach placement. Will hold tube feeds at midnight prior - f/u AM labs - wean FiO2 to <40% - Maintain PEEP 5 - will obtain consent for Trach from the court appointed POA: George Garland ( [phone]) - continue vent management as per ICU team Further recs as per Dr. Sandi Nuñez PGY1 <Chris Junior - Last Filed: 01/01/18 18:18> Subjective - Date & Time of Evaluation Time of Evaluation: 18:05 - Subjective Subjective: Patient was seen and examined at the bedside. Agree with resident's note above. Objective - Vital Signs/Intake and Output Vital Signs (last 24 hours): Temp Pulse Resp BP Pulse Ox 98.4 F 100 H 18 122/68 100 01/01/18 16:00 01/01/18 17:59 01/01/18 17:59 01/01/18 17:59 01/01/18 17:59 Intake and Output: 01/01/18 01/01/18 06:59 18:59 Intake Total 1328 970 Output Total 700 600 Balance 628 370 - Medications Medications: Current Medications Acetaminophen (Tylenol 650mg/20.3ml Solution Ud) 650 mg PO Q6 PRN PRN Reason: fever > 100.4 Last Admin: 12/30/17 09:38 Dose: 650 mg Aspirin (Aspirin Chewable) 81 mg NG DAILY [facility] Last Admin: 12/31/17 09:24 Dose: 81 mg Atorvastatin Calcium (Lipitor) 40 mg PO HS [facility] Last Admin: 12/31/17 22:00 Dose: 40 mg Clopidogrel Bisulfate (Plavix) 75 mg NG DAILY [facility] Last Admin: 12/31/17 09:24 Dose: 75 mg Enoxaparin Sodium (Lovenox) 40 mg SC HS [facility] PRN Reason: Protocol Last Admin: 12/31/17 22:02 Dose: 40 mg Famotidine (Pepcid) 40 mg PO DAILY [facility] Last Admin: 01/01/18 08:30 Dose: 40 mg Ferrous Sulfate (Feosol Liq) 300 mg PO DAILY [facility] Last Admin: 01/01/18 08:29 Dose: 300 mg Folic Acid (Folic Acid) 1 mg GT DAILY [facility] Last Admin: 01/01/18 08:29 Dose: 1 mg Ampicillin Sodium/Sulbactam (Sodium 1.5 gm/ Sodium Chloride) 100 mls @ 100 mls/ hr IVPB Q6 [facility] PRN Reason: Protocol Last Admin: 01/01/18 15:42 Dose: 100 mls/hr Thiamine HCl (Vitamin B1 Tab) 100 mg NG DAILY [facility] Last Admin: 01/01/18 08:29 Dose: 100 mg - Labs Labs: 01/01/18 07:00 01/01/18 07:00 PT 12.4 Seconds (9.8-13.1) 01/01/18 07:00 INR 1.1 (0.9-1.2) 01/01/18 07:00 APTT 35.6 Seconds (25.6-37.1) 01/01/18 07:00
[2018-01-01] MEDS: Ferrous Sulfate 300 mg/5 mL Liq UD PO SCH (08:29)
--- NOTE | 2018-01-01 08:40 | RAD ---
HISTORY: intubation COMPARISON: Portable chest 12/31/2017. FINDINGS: LUNGS: Endotracheal and nasogastric tubes do not appear significantly changed in position. Developing airspace disease is noted at the medial left base posterior to the heart. No right-sided infiltrate. PLEURA: No significant pleural effusion identified, no pneumothorax apparent. CARDIOVASCULAR: Normal. OSSEOUS STRUCTURES: No significant abnormalities. VISUALIZED UPPER ABDOMEN: Normal. OTHER FINDINGS: None. IMPRESSION: Limited medial left basilar airspace disease with remaining lung peres clear. No interval cardiovascular pathologic changes evident.
--- NOTE | 2018-01-01 10:28 | CP.PCM.PN ---
Subjective - Date & Time of Evaluation Date of Evaluation: 01/01/18 Time of Evaluation: 10:15 - Subjective Subjective: Pt remains intubated on [facility] Vent 18/450/5/50% Febrile yesterday - no fever today so far Responds to deep pain by sl movement of head and shoulders Breaths over the Vent Vomited this am - tube feeding held Objective - Vital Signs/Intake and Output Vital Signs (last 24 hours): Temp Pulse Resp BP Pulse Ox 98.4 F 93 H 18 113/70 96 01/01/18 08:00 01/01/18 10:00 01/01/18 10:00 01/01/18 10:00 01/01/18 10:00 Intake and Output: 01/01/18 01/01/18 06:59 18:59 Intake Total 1328 160 Output Total 700 Balance 628 160 - Medications Medications: Current Medications Acetaminophen (Tylenol 650mg/20.3ml Solution Ud) 650 mg PO Q6 PRN PRN Reason: fever > 100.4 Last Admin: 12/30/17 09:38 Dose: 650 mg Aspirin (Aspirin Chewable) 81 mg NG DAILY [facility] Last Admin: 12/31/17 09:24 Dose: 81 mg Atorvastatin Calcium (Lipitor) 40 mg PO HS [facility] Last Admin: 12/31/17 22:00 Dose: 40 mg Clopidogrel Bisulfate (Plavix) 75 mg NG DAILY [facility] Last Admin: 12/31/17 09:24 Dose: 75 mg Enoxaparin Sodium (Lovenox) 40 mg SC HS [facility] PRN Reason: Protocol Last Admin: 12/31/17 22:02 Dose: 40 mg Famotidine (Pepcid) 40 mg PO DAILY [facility] Last Admin: 01/01/18 08:30 Dose: 40 mg Ferrous Sulfate (Feosol Liq) 300 mg PO DAILY [facility] Last Admin: 01/01/18 08:29 Dose: 300 mg Folic Acid (Folic Acid) 1 mg GT DAILY [facility] Last Admin: 01/01/18 08:29 Dose: 1 mg Ampicillin Sodium/Sulbactam (Sodium 1.5 gm/ Sodium Chloride) 100 mls @ 100 mls/ hr IVPB Q6 [facility] PRN Reason: Protocol Last Admin: 01/01/18 09:11 Dose: 100 mls/hr Thiamine HCl (Vitamin B1 Tab) 100 mg NG DAILY [facility] Last Admin: 01/01/18 08:29 Dose: 100 mg - Labs Labs: 01/01/18 07:00 01/01/18 07:00 PT 12.4 Seconds (9.8-13.1) 01/01/18 07:00 INR 1.1 (0.9-1.2) 01/01/18 07:00 APTT 35.6 Seconds (25.6-37.1) 01/01/18 07:00 - Constitutional Appears: chronically ill, Intubated on Vent - Head Exam Head Exam: NORMAL INSPECTION, NORMOCEPHALIC - Eye Exam Eye Exam: Pupil Exam: Left pupil fixed ,not reactive to light, R pupil sluggishly reactive to light 4mm - ENT Exam ENT Exam: Mucous Membranes Dry, Normal External Ear Exam - Neck Exam Neck Exam: absent: Meningismus - Respiratory Exam Respiratory Exam: Rhonchi, coarse rales Additional comments: Intubated on Vent - Cardiovascular Exam Cardiovascular Exam: REGULAR RHYTHM, +S1, +S2 - GI/Abdominal Exam GI & Abdominal Exam: Soft, Normal Bowel Sounds OGT in place - Extremities Exam Extremities Exam: Pedal Edema, edematous upper ext - Neurological Exam Additional comments: responds to deep pain by sl movement of head fixed pupils no gag reflex breathes over the Vent Assessment and Plan (1) Acute CVA (cerebrovascular accident) Status: Acute (2) Altered mental status Status: Acute (3) Slurring of speech Status: Acute (4) HTN (hypertension) Status: Chronic (5) Acute metabolic encephalopathy Status: Acute (6) Acute respiratory insufficiency Status: Acute (7) DVT prophylaxis Status: Acute - Assessment and Plan (Free Text) Assessment: 62 y/o White male , initially admitted as Tez White , now identified by Police as Jesus Grayson , unknown PMH was brought by EMS after he was observed by bystanders falling in the street. Patient was lethargic on admission however arousable , noted to have a facial droop and his speech was slurred. 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 He was transferred to ICU and intubated for airway protection. Repeat CT of head showed no change but MRI showed pontine, midbrain, cerebellar hemispheres and thalami infarct. 11/22: With episode of vomiting and possible aspiration became hypotensive, tachycardic, febrile, and hypoxemic Repeat CT head 11/28 showed :Gross edematous changes affect cerebellar hemispheres bilaterally sparing only the inferior margins somewhat and causing compression on the the mid to lower brainstem. The 4th ventricle is partially effaced but no obstructive hydrocephalus appreciated at this time. Edema has extend into the bilateral thalami, right greater than left further indicative of expanding infarction. No intracranial hemorrhage. Given patient's poor prognosis medical team following him has decided that it is appropriate to " not Escalate treatment " and DNR order placed. Ethics Committee meeting recommended Emergency guardianship which is in progress. Temporary guardians came to hospital 12/20 and received all information in regards to patient's medical condition and prognosis. They agreed to DNR order, also agreed to Trach and PEG placement 1. Acute CVA/ Coma state Patient is comatose , pupils fixed , unequal size not reactive to light ,gag reflex present. Breaths over the vent and maintains his BP MRI brain showed pontine , midbrain, cerebellar hemispheres and thalamic infarct Repeat CT of head 11/28 showed :Gross edematous changes affect cerebellar hemispheres bilaterally sparing only the inferior margins somewhat and causing compression on the the mid to lower brainstem. The 4th ventricle is partially effaced but no obstructive hydrocephalus appreciated at this time. Edema has extend into the bilateral thalami, right greater than left further indicative of expanding infarction. No intracranial hemorrhage. Poor Prognosis Neurology on consult Continue ASA [facility] [facility] has been notified Given patient's poor prognosis medical team following him has decided a Do not Escalate treatment and DNR order in place. Temporary guardianship is in effect and agrees to DNR order Repeat CT of head 12/26 -Interval evolution previously noted of large acute infarct which involves keshia in both cerebellar hemispheres including vermis. There also has been interval evolution of posterior bilateral basal nuclei ischemic changes Diffuse/confluent chronic periventricular white matter ischemic changes extending peripherally into the deep and subcortical white matter both cerebral hemispheres. In addition, there are multiple additional chronic appearing bilateral basal nuclei lacunar type infarcts also seen. There is persistent dilatation of the temporal horns and atria bilaterally likely due to asymmetric central volume loss most pronounced in the posterior temporal lobes and occipital parietal regions Discussed case with Dr Mcneill - he does not feel that pt would improved or have meaningful life ahead- pt has extensive CVA , brain does not communicate with spinal cord. 12/27 : Temporary Guardian- George Garland , given pt's very poor prognosis/ comatose state , discussed withdrawal of care - she stated that since she is not in the medical field and does not know pt, she would like to defer this decision and wait for the Public Guardianship to decide of these. 12/31: Temp Guardian agrees to Trach and PEG placement- consulted Surgery and GI Hold off on ASA and PLavix as pt is for Trach and PEG 2. Sepsis due to Aspiration Pneumonia-resolved Still orally Intubated since 11/16 ( ET tube changed 12/09) on Vent (PVRC/AC 16/450 /5/50%) procalcitonin was elevated , intermittent fever Off Levophed, all antibiotics d/c trachea aspirate: positive for Citrobacter and 1 blood cx positive for Staph coag negative ( ? contaminant),repeat blood cultures negative completed IV antibiotic treatment with Cipro and Vanco - now off antibiotics ID consulted : Dr. Anderson Keep HOB elevated , aspiration, precautions,respiratory toilet with frequent suctioning CXR showed no infiltrate today Repeat Trach Aspirate c/s : Beta hemolytic Strep - Unasyn started on 12/26 #6/ 3. Atelectasis , left lung likely from mucus plugging CXR showed whole left lung white out and presently opened Trach Asp C/S: Beta hemolytic Strep- Unasyn started by Dr Finn Continue Deep suctioning by Respiratory team 4. UTI-treated urine cx positive for Strep viridans - completed treatment with Vanco IV for 2 weeks 5. ? Alcoholism unclear if alcoholic, cannot obtain hx however ED note stated that patient has history of ETOH ETOH level low urine Tox : neg cont Thiamine and FA 6. Anemia, chronic dis sl. drop during hospitalization likely due to acute medical condition, blood drawing will hold off on transfusion unless Hgb drops to less than 7 or if pt shows any signs on hemodynamic instability/. 7.DVT prophylaxis Acute Lovenox
--- NOTE | 2018-01-01 17:19 | CP.CCUPN ---
CCU Subjective - Physician Review Events Since Last Encounter (Free Text): 01/01/18 17:17 comatose , no change in condition, had vomiting today, TF held for short time. CCU Objective - Vital Signs / Intake & Output Vital Signs (Last 4 hours): Vital Signs Temp Pulse Resp BP Pulse Ox 01/01/18 16:00 98.4 F 88 23 103/62 100 01/01/18 14:00 98 H 18 133/74 99 Intake and Output (Last 8hrs): Intake & Output 01/01/18 01/01/18 01/01/18 06:59 14:59 22:59 Intake Total 992 480 220 Output Total 700 Balance 292 480 220 Intake: IV 12 Intake, Piggyback 200 100 100 Tube Feeding 480 180 120 Free Water Flush 300 200 Output: Urine 700 2-way Urethral 700 Other: # Bowel Movements 1 - Physical Exam Narrative Physical Exam (Free Text): 01/01/18 17:18 P/E Neck: No JVD Lungs: Rt basal crackles Abdomen: soft, non-tender Ext: +1 edema Heart: No gallop Head: Positive for: Atraumatic, Normocephalic. Negative for: Ecchymosis, Abrasion, Laceration Pupils: Negative for: PERRL Extroacular Muscles: Negative for: EOMI Conjunctiva: Positive for: Normal. Negative for: Injected, Icteric Ears: Positive for: Normal Mouth: Positive for: Moist Mucous Membranes Pharnyx: Negative for: ERYTHEMA, EXUDATE, TONSILS ENLARGED Neck: Positive for: Trachea Midline. Negative for: JVD, Lymphadenopathy Respiratory/Chest: Positive for: Clear to Auscultation ( distant breath sounds b /l). Negative for: Rales, Retracting, Rhonchi Cardiovascular: Positive for: Regular Rate and Rhythm, Normal S1, S2, Peripheal Pulses Present (faint). Negative for: Rub, Gallop Abdomen: Positive for: Normal Bowel Sounds. Negative for: Distention, Peritoneal Signs Upper Extremity: Positive for: Capillary Refill < 2s. Negative for: Cyanosis, Erythema Lower Extremity: Negative for: Normal Inspection (DTI), Edema, NORMAL PULSES ( faint), Swelling, Temperature Abnormalties Neurological: Positive for: Other (on ventilator, no response to verbal stimuli) . Negative for: GCS=15 (4T), Speech Normal, Motor Func Grossly Intact, Normal Sensory Function Skin: Positive for: Dry. Negative for: Laceration Lymphatic: Negative for: Cervical Adenopathy Psychiatric: Positive for: Other (comatose). Negative for: Alert, Oriented x 3 - Medications Active Medications: Active Medications Generic Name Dose Route Start Last Admin Trade Name Freq PRN Reason Stop Dose Admin Acetaminophen 650 mg 11/27/17 00:56 12/30/17 09:38 Tylenol 650mg/20.3ml Solution Ud PO 650 mg Q6 PRN Administration fever > 100.4 Aspirin 81 mg 11/19/17 09:00 12/31/17 09:24 Aspirin Chewable NG 81 mg DAILY [facility] Administration Atorvastatin Calcium 40 mg 11/17/17 22:00 12/31/17 22:00 Lipitor PO 40 mg HS [facility] Administration Clopidogrel Bisulfate 75 mg 11/18/17 09:45 12/31/17 09:24 Plavix NG 75 mg DAILY [facility] Administration Enoxaparin Sodium 40 mg 12/22/17 22:00 12/31/17 22:02 Lovenox SC 40 mg HS [facility] Administration Protocol Famotidine 40 mg 12/02/17 09:00 01/01/18 08:30 Pepcid PO 40 mg DAILY [facility] Administration Ferrous Sulfate 300 mg 12/18/17 09:00 01/01/18 08:29 Feosol Liq PO 300 mg DAILY [facility] Administration Folic Acid 1 mg 11/17/17 09:00 01/01/18 08:29 Folic Acid GT 1 mg DAILY [facility] Administration Ampicillin Sodium/Sulbactam 100 mls @ 100 mls/hr 12/26/17 16:00 01/01/18 15: 42 Sodium 1.5 gm/ Sodium Chloride IVPB 100 mls/hr Q6 [facility] Administration Protocol Thiamine HCl 100 mg 12/12/17 09:00 01/01/18 08:29 Vitamin B1 Tab NG 100 mg DAILY [facility] Administration - Patient Studies Lab Studies: Lab Studies 01/01/18 01/01/18 01/01/18 Range/Units 07:00 07:00 07:00 WBC 7.1 (4.8-10.8) K/uL RBC 2.71 L (4.40-5.90) Mil/uL Hgb 8.4 L (12.0-18.0) g/dL Hct 25.2 L (35.0-51.0) % MCV 92.9 (80.0-94.0) fl MCH 31.0 (27.0-31.0) pg MCHC 33.4 (33.0-37.0) g/dL RDW 18.7 H (11.5-14.5) % Plt Count 260 (130-400) K/uL PT 12.4 (9.8-13.1) Seconds INR 1.1 (0.9-1.2) APTT 35.6 (25.6-37.1) Seconds Sodium 137 (132-148) mmol/l Potassium 3.5 L (3.6-5.0) MMOL/L Chloride 95 L (98-107) mmol/L Carbon Dioxide 39 H (22-30) mmol/L Anion Gap 7 L (10-20) BUN 20 (9-20) mg/dl Creatinine 0.5 L (0.8-1.5) mg/dl Est GFR ( Amer) > 60 Est GFR (Non-Af Amer) > 60 Random Glucose 99 (75-110) mg/dL Calcium 7.8 L (8.4-10.2) mg/dL Laboratory Results - last 24 hr 01/01/18 01/01/18 01/01/18 07:00 07:00 07:00 WBC 7.1 RBC 2.71 L Hgb 8.4 L Hct 25.2 L MCV 92.9 MCH 31.0 MCHC 33.4 RDW 18.7 H Plt Count 260 PT 12.4 INR 1.1 APTT 35.6 Sodium 137 Potassium 3.5 L Chloride 95 L Carbon Dioxide 39 H Anion Gap 7 L BUN 20 Creatinine 0.5 L Est GFR ( Amer) > 60 Est GFR (Non-Af Amer) > 60 Random Glucose 99 Calcium 7.8 L Fingerstick Blood Sugar Results: 142 Assessment/Plan - Assessment and Plan (Free Text) Assessment: 1-CVA Patient is comatose , pupils fixed , ,gag reflex present. MRI brain showed pontine , midbrain, cerebellar hemispheres and thalamic infarct Very poor prognosis On ASA, Statin, Plavix Given patient's poor prognosis medical team following him has decided a Do not Escalate treatment and DNR order in place. DNR, as per temporary guardianship. Repeat CT of head 12/26 -Interval evolution previously noted of large acute infarct which involves keshia in both cerebellar hemispheres including vermis. There also has been interval evolution of posterior bilateral basal nuclei ischemic changes Diffuse/confluent chronic periventricular white matter ischemic changes extending peripherally into the deep and subcortical white matter both cerebral hemispheres. In addition, there are multiple additional chronic appearing bilateral basal nuclei lacunar type 12/27 : Temporary Guardian- George Garland , given pt's very poor prognosis/ comatose state , discussed plan for Trach/PEG vs withdrawal of care - she stated that since she is not in the medical field and does not know pt, she would like to defer this decision and wait for the Public Guardianship to decide of these. 2. Resp failure, aspiration PNA , sepsis Still orally Intubated since 11/16 ( ET tube changed 12/09) on Vent (PVRC/AC 16/450 /5/50%) procalcitonin was elevated , intermittent fever Off Levophed, all antibiotics d/c completed IV antibiotic treatment with Cipro and Vanco - now off antibiotics Keep HOB elevated , aspiration, precautions,respiratory toilet with frequent suctioning CXR showed no infiltrate today Vent setting adjusted, AC, VT 450 PEEP 5 Rate 18/m Fio 0.50 3. UTI-treated urine cx positive for Strep viridans - completed treatment with Vanco IV for 2 weeks 4. Anemia, chronic dis sl. drop during hospitalization likely due to acute medical condition, blood drawing will hold off on transfusion unless Hgb drops to less than 7 ot if pt shows any signs on hemodynamic instability/. 5.DVT prophylaxis Acute Lovenox
[2018-01-01] MEDS: Enoxaparin 40 mg Syringe SC SCH (21:56)
[2018-01-02 04:55] LABS: ABG ALLEN TEST YES; ARTERIAL BLOOD GAS HCO3 35.3 mmol/L (21-28); ARTERIAL BLOOD GAS O2 CAPACITY 11.3 mL/dL (16-24); ARTERIAL BLOOD GAS O2 CONTENT 11.4 ML/dL (15-23); ARTERIAL BLOOD GAS O2 SAT 100.8 % (95-98); ARTERIAL BLOOD GAS PCO2 41 mm/Hg (35-45); ARTERIAL BLOOD GAS PH 7.56 (7.35-7.45); ARTERIAL BLOOD GAS PO2 177 mm/Hg (80-100)
[2018-01-02 05:57] LABS: BASO # 0.1 K/uL (0.0-0.2); BASO % 0.9 % (0.0-2.0); EOS # 0.3 K/uL (0.0-0.7); HEMOGLOBIN 8.5 g/dL (12.0-18.0); LYMPH % 26.8 % (20.0-40.0); MEAN CELL VOLUME 94.2 fl (80.0-94.0); MEAN CORPUSCULAR HGB CONC 32.9 g/dL (33.0-37.0); MEAN PLATELET VOLUME 8.1 fl (7.2-11.7); MONO # 0.7 K/uL (0.0-0.8); NEUT # 4.4 K/uL (1.8-7.0); NEUT % 58.3 % (50.0-75.0); RBC 2.74 Mil/uL (4.40-5.90); RED CELL DISTRIBUTION WIDTH 18.8 % (11.5-14.5); WHITE BLOOD COUNT 7.5 K/uL (4.8-10.8)
[2018-01-02 06:14] LABS: BLOOD UREA NITROGEN 15 mg/dl (9-20); GFR AFRICAN-AMERICAN > 60; GFR NON-AFRICAN AMERICAN > 60
[2018-01-02] MEDS ORDERED: Potassium Chloride 20 mEq/15 ml LIQ UD PO ONE (07:45)
[2018-01-02] MEDS: Ferrous Sulfate 300 mg/5 mL Liq UD PO SCH (08:30)
--- NOTE | 2018-01-02 10:15 | RAD ---
HISTORY: intubation COMPARISON: Portable chest 01/01/2018. FINDINGS: LUNGS: Endotracheal tube is been retracted slightly, terminating just above the level of clavicles in the current view submitted, terminating 9.4 cm above the haresh. Consider advancing the tube at least 4-5 cm antegrade. Nasogastric tube does not appear significantly changed in position. Left basilar airspace disease is not excluded increased with none identified at the right. PLEURA: Opacity at the left base is felt to be a function primarily of interval left pleural effusion. Underlying airspace disease not excluded at the left base. No right pleural effusion. No pneumothorax bilaterally. CARDIOVASCULAR: Normal. OSSEOUS STRUCTURES: No significant abnormalities. VISUALIZED UPPER ABDOMEN: Normal. OTHER FINDINGS: None. IMPRESSION: Interval left basilar airspace disease is question underlying likely new but mild left pleural effusion. Remaining lung peres clear. Endotracheal tube terminates above the level of clavicles. Consider advancing the tube 4-5 cm antegrade follow-up by confirmation radiography. .
--- NOTE | 2018-01-02 12:17 | CP.PCM.PN ---
Subjective - Date & Time of Evaluation Date of Evaluation: 01/02/18 Time of Evaluation: 11:30 - Subjective Subjective: Pt remains intubated on [facility] Vent 18/450/5/40% - ( FiO2 decreased to 40% at 9am today) Low grade fever last night Responds to deep pain by sl movement of head and shoulders Breaths over the Vent Objective - Vital Signs/Intake and Output Vital Signs (last 24 hours): Temp Pulse Resp BP Pulse Ox 98.3 F 93 H 18 125/78 100 01/02/18 12:00 01/02/18 12:00 01/02/18 12:00 01/02/18 12:00 01/02/18 12:00 Intake and Output: 01/02/18 01/02/18 06:59 18:59 Intake Total 1328 400 Output Total 1000 Balance 328 400 - Medications Medications: Current Medications Acetaminophen (Tylenol 650mg/20.3ml Solution Ud) 650 mg PO Q6 PRN PRN Reason: fever > 100.4 Last Admin: 12/30/17 09:38 Dose: 650 mg Aspirin (Aspirin Chewable) 81 mg NG DAILY [facility] Last Admin: 12/31/17 09:24 Dose: 81 mg Atorvastatin Calcium (Lipitor) 40 mg PO HS [facility] Last Admin: 01/01/18 21:56 Dose: 40 mg Clopidogrel Bisulfate (Plavix) 75 mg NG DAILY [facility] Last Admin: 12/31/17 09:24 Dose: 75 mg Docusate Sodium (Colace Liquid) 100 mg PO TID [facility] Last Admin: 01/02/18 12:11 Dose: 100 mg Enoxaparin Sodium (Lovenox) 40 mg SC [facility] PRN Reason: Protocol Last Admin: 01/01/18 21:56 Dose: 40 mg Famotidine (Pepcid) 40 mg PO DAILY [facility] Last Admin: 01/02/18 08:31 Dose: 40 mg Ferrous Sulfate (Feosol Liq) 300 mg PO DAILY [facility] Last Admin: 01/02/18 08:30 Dose: 300 mg Folic Acid (Folic Acid) 1 mg GT DAILY [facility] Last Admin: 01/02/18 08:31 Dose: 1 mg Thiamine HCl (Vitamin B1 Tab) 100 mg NG DAILY [facility] Last Admin: 01/02/18 08:30 Dose: 100 mg - Labs Labs: 01/02/18 05:00 01/02/18 05:00 PT 12.4 Seconds (9.8-13.1) 01/01/18 07:00 INR 1.1 (0.9-1.2) 01/01/18 07:00 APTT 35.6 Seconds (25.6-37.1) 01/01/18 07:00 - Constitutional Appears: chronically ill, Intubated on Vent - Head Exam Head Exam: NORMAL INSPECTION, NORMOCEPHALIC - Eye Exam Eye Exam: Pupil Exam: pupils not reactive to light 4mm - ENT Exam ENT Exam: Mucous Membranes Dry, Normal External Ear Exam - Neck Exam Neck Exam: absent: Meningismus - Respiratory Exam Respiratory Exam: Rhonchi, coarse rales Additional comments: Intubated on Vent - Cardiovascular Exam Cardiovascular Exam: REGULAR RHYTHM, +S1, +S2 - GI/Abdominal Exam GI & Abdominal Exam: Soft, Normal Bowel Sounds OGT in place - Extremities Exam Extremities Exam: Pedal Edema, edematous upper ext - Neurological Exam Additional comments: responds to deep pain by sl movement of head fixed pupils no gag reflex breathes over the Vent Assessment and Plan (1) Acute CVA (cerebrovascular accident) Status: Acute (2) Altered mental status Status: Acute (3) Slurring of speech Status: Acute (4) HTN (hypertension) Status: Chronic (5) Acute metabolic encephalopathy Status: Acute (6) Acute respiratory insufficiency Status: Acute (7) DVT prophylaxis Status: Acute - Assessment and Plan (Free Text) Assessment: 62 y/o White male , initially admitted as Tez White , now identified by Police as Jesus Garyson , unknown PMH was brought by EMS after he was observed by bystanders falling in the street. Patient was lethargic on admission however arousable , noted to have a facial droop and his speech was slurred. 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 He was transferred to ICU and intubated for airway protection. Repeat CT of head showed no change but MRI showed pontine, midbrain, cerebellar hemispheres and thalami infarct. 11/22: With episode of vomiting and possible aspiration became hypotensive, tachycardic, febrile, and hypoxemic Repeat CT head 11/28 showed :Gross edematous changes affect cerebellar hemispheres bilaterally sparing only the inferior margins somewhat and causing compression on the the mid to lower brainstem. The 4th ventricle is partially effaced but no obstructive hydrocephalus appreciated at this time. Edema has extend into the bilateral thalami, right greater than left further indicative of expanding infarction. No intracranial hemorrhage. Given patient's poor prognosis medical team following him has decided that it is appropriate to " not Escalate treatment " and DNR order placed. Ethics Committee meeting recommended Emergency guardianship which is in progress. Temporary guardians came to hospital 12/20 and received all information in regards to patient's medical condition and prognosis. They agreed to DNR order, also agreed to Trach and PEG placement 1. Acute CVA/ Coma state Patient is comatose , pupils fixed , unequal size not reactive to light ,gag reflex present. Breaths over the vent and maintains his BP MRI brain showed pontine , midbrain, cerebellar hemispheres and thalamic infarct Repeat CT of head 11/28 showed :Gross edematous changes affect cerebellar hemispheres bilaterally sparing only the inferior margins somewhat and causing compression on the the mid to lower brainstem. The 4th ventricle is partially effaced but no obstructive hydrocephalus appreciated at this time. Edema has extend into the bilateral thalami, right greater than left further indicative of expanding infarction. No intracranial hemorrhage. Poor Prognosis Neurology on consult Continue ASA [employer] has been notified Given patient's poor prognosis medical team following him has decided a Do not Escalate treatment and DNR order in place. Temporary guardianship is in effect and agrees to DNR order and Trach/PEG Repeat CT of head 12/26 -Interval evolution previously noted of large acute infarct which involves keshia in both cerebellar hemispheres including vermis. There also has been interval evolution of posterior bilateral basal nuclei ischemic changes Diffuse/confluent chronic periventricular white matter ischemic changes extending peripherally into the deep and subcortical white matter both cerebral hemispheres. In addition, there are multiple additional chronic appearing bilateral basal nuclei lacunar type infarcts also seen. There is persistent dilatation of the temporal horns and atria bilaterally likely due to asymmetric central volume loss most pronounced in the posterior temporal lobes and occipital parietal regions Discussed case with Dr Mcneill - he does not feel that pt would improved or have meaningful life ahead- pt has extensive CVA , brain does not communicate with spinal cord. 12/27 : Temporary Guardian- George Garland , given pt's very poor prognosis/ comatose state , discussed withdrawal of care - she stated that since she is not in the medical field and does not know pt, she would like to defer this decision and wait for the Public Guardianship to decide of these. 12/31: Temp Guardian agrees to Trach and PEG placement- consulted Surgery and GI Hold off on ASA and Plavix as pt is for Trach and PEG 2. Sepsis due to Aspiration Pneumonia-resolved Still orally Intubated since 11/16 ( ET tube changed 12/09) on Vent (PVRC/AC 16/450 /5/50%) procalcitonin was elevated , intermittent fever Off Levophed, all antibiotics d/c trachea aspirate: positive for Citrobacter and 1 blood cx positive for Staph coag negative ( ? contaminant),repeat blood cultures negative completed IV antibiotic treatment with Cipro and Vanco - now off antibiotics ID consulted : Dr. Anderson Keep HOB elevated , aspiration, precautions,respiratory toilet with frequent suctioning CXR showed no infiltrate today Repeat Trach Aspirate c/s : Beta hemolytic Strep - Unasyn started on 12/26 #01/14 - will d/c in am 3. Atelectasis , left lung likely from mucus plugging CXR showed whole left lung white out and presently opened Trach Asp C/S: Beta hemolytic Strep- Unasyn started by Dr Finn Continue Deep suctioning by Respiratory team 4. UTI-treated urine cx positive for Strep viridans - completed treatment with Vanco IV for 2 weeks 5. ? Alcoholism unclear if alcoholic, cannot obtain hx however ED note stated that patient has history of ETOH ETOH level low urine Tox : neg cont Thiamine and FA 6. Anemia, chronic dis sl. drop during hospitalization likely due to acute medical condition, blood drawing will hold off on transfusion unless Hgb drops to less than 7 or if pt shows any signs on hemodynamic instability/. 7.DVT prophylaxis Acute Lovenox
--- NOTE | 2018-01-02 17:51 | PN ---
DATE: 01/02/2018 CRITICAL CARE PROGRESS NOTE LOCATION: The patient in ICU, bed 435. TIME SPENT: 25 minutes. SUBJECTIVE: The patient is seen and evaluated at the bedside. Case discussed in early childhood education coordinator ICU rounds. Past medical, surgical, family, and social history reviewed. A 62-year-old male with extensive CVA involving putamen, thalamus, mid brain, and cerebellum, remains intubated on mechanical ventilation. No sedation. Currently on AC/PRVC rate 18, set tidal volume 450, PEEP of 5, FiO2 50%, saturation 100%, peak airway pressure 18, minute ventilation 8.1 liters, exhaled tidal volume 460. PHYSICAL EXAMINATION: VITAL SIGNS: Telemetry, sinus rhythm. Temperature afebrile. Blood pressure 125/78, mean arterial pressure 93, respiratory rate 18, saturation 100%, intake 2298 and output 1600, positive balance 698. HEAD, EYES, EARS, NOSE, AND THROAT: Pupils are poorly reactive. No gaze preference. Endotracheal tube in place. Mild thin secretion noted. CHEST: Bilateral breath sounds. Scattered rhonchi. HEART: Rhythm regular. ABDOMEN: Bowel sounds present, soft. EXTREMITIES: Trace edema. SKIN: Maceration noted in the digital as well as the plantar surface of right foot. NEURO: Responds to painful stimuli by withdrawing his head and arm. Gag reflex present,overdrive the ventilator by _1 to 2 breaths. CURRENT MEDICATIONS: Include Tylenol 650 every 6 p.r.n., aspirin 81 mg daily, Lipitor 40 mg p.o. daily, Plavix 75 mg p.o. daily, Colace 100 mg three times daily, Lovenox 40 mg subcu daily, Pepcid 40 mg daily, ferrous sulfate 300 mg p.o. daily, folic acid 1 mg daily, thiamine 100 mg daily. LABORATORY DATA: WBC 7.5, hemoglobin 8.5, hematocrit 25.8, platelet count 227, lymphocytes 26.8, neutrophils 58.3. PT 12.4, INR 1.1, PTT 35.6. ABG: PH 7.56, pCO2 of 41, pO2 of 177, saturation 100.8 on AC/PRVC 18, 450, 50%, PEEP of 5. SMA-7: Sodium 139, potassium 3.5, chloride 98, CO2 is 36, blood urea nitrogen 15, creatinine 0.5, calcium 8. Urinalysis: Rbc 18, wbc 2, bacteria rare. Toxicology screen negative. RPR nonreactive. HIV negative. IMPRESSION: 1. Neurologic: No significant change in the patient's mental status, remains comatosed with very minimal brainstem reflex, fluctuating blood pressure off pressors. 2. Pulmonary: Vent-dependant respiratory failure, status post left lung collapse, cleared up now. Saturating well over 94%. Continue DuoNeb. 3. Cardiac: History of hypertension, controlled on current medications. 4. GI: No acute issues. 5. Hematology: Anemia of chronic disease. No active GI bleeding. Continue GI prophylaxis. 6. Renal: No acute issues. Supplement potassium as needed. 7. Infectious Disease: Status post mucus plug of left lung cleared. Discontinue IV antibiotic. 8. Podiatry: Laceration of skin, right foot. Podiatry consult requested. PLAN: Awaiting for tracheostomy and PEG placement. Raul Finn MD MTDD
[2018-01-02] MEDS: Enoxaparin 40 mg Syringe SC SCH (21:37)
--- NOTE | 2018-01-02 23:44 | CP.PCM.CON ---
History of Present Illness - History of Present Illness History of Present Illness: 62 yo female referred for PEG. Patient had large CVA and is comatose. Vital signs and other organs are stable. Review of Systems - Review of Systems Systems not reviewed;Unavailable: Altered Mental Status Past Patient History - Past Medical History & Family History Past Medical History?: No - Past Social History Smoking Status: unknown - MUSCULOSKELETAL/RHEUMATOLOGICAL Hx Falls: (unknown) - PSYCHIATRIC Hx Substance Use: No (Unknown) - SURGICAL HISTORY Hx Surgeries: No Other/Comment: Unknown - ANESTHESIA Hx Anesthesia: (unknown) Meds Allergies/Adverse Reactions: Allergies Allergy/AdvReac Type Severity Reaction Status Date / Time Unobtainable Allergy Verified 11/14/17 15:27 - Medications Medications: Current Medications Acetaminophen (Tylenol 650mg/20.3ml Solution Ud) 650 mg PO Q6 PRN PRN Reason: fever > 100.4 Last Admin: 12/30/17 09:38 Dose: 650 mg Aspirin (Aspirin Chewable) 81 mg NG DAILY [facility] Last Admin: 12/31/17 09:24 Dose: 81 mg Atorvastatin Calcium (Lipitor) 40 mg PO HS [facility] Last Admin: 01/02/18 21:37 Dose: 40 mg Clopidogrel Bisulfate (Plavix) 75 mg NG DAILY [facility] Last Admin: 12/31/17 09:24 Dose: 75 mg Docusate Sodium (Colace Liquid) 100 mg PO TID [facility] Last Admin: 01/02/18 16:37 Dose: 100 mg Enoxaparin Sodium (Lovenox) 40 mg SC HS [facility] PRN Reason: Protocol Last Admin: 01/02/18 21:37 Dose: 40 mg Famotidine (Pepcid) 40 mg PO DAILY [facility] Last Admin: 01/02/18 08:31 Dose: 40 mg Ferrous Sulfate (Feosol Liq) 300 mg PO DAILY [facility] Last Admin: 01/02/18 08:30 Dose: 300 mg Folic Acid (Folic Acid) 1 mg GT DAILY [facility] Last Admin: 01/02/18 08:31 Dose: 1 mg Ampicillin Sodium/Sulbactam (Sodium 1.5 gm/ Sodium Chloride) 100 mls @ 100 mls/ hr IVPB Q6 [facility] PRN Reason: Protocol Stop: 01/03/18 17:17 Last Admin: 01/02/18 21:53 Dose: 100 mls/hr Thiamine HCl (Vitamin B1 Tab) 100 mg NG DAILY [facility] Last Admin: 01/02/18 08:30 Dose: 100 mg Physical Exam - Head Exam Head Exam: ATRAUMATIC - Eye Exam Eye Exam: Normal appearance - ENT Exam ENT Exam: Normal Exam - Neck Exam Neck exam: Positive for: Normal Inspection - Respiratory Exam Respiratory Exam: Clear to Auscultation Bilateral - Cardiovascular Exam Cardiovascular Exam: REGULAR RHYTHM, +S1, +S2 - GI/Abdominal Exam GI & Abdominal Exam: Normal Bowel Sounds, Soft. absent: Tenderness - Extremities Exam Extremities exam: Positive for: normal inspection Results - Vital Signs Recent Vital Signs: Last Vital Signs Temp 98.7 F 01/02/18 20:00 Pulse 98 H 01/02/18 22:00 Resp 18 01/02/18 22:00 BP 110/71 01/02/18 22:00 Pulse Ox 99 01/02/18 22:00 - Labs Result Diagrams: 01/02/18 05:00 01/02/18 05:00 Labs: Laboratory Results - last 24 hr 01/02/18 01/02/18 01/02/18 04:37 05:00 05:00 WBC 7.5 RBC 2.74 L Hgb 8.5 L Hct 25.8 L MCV 94.2 H MCH 31.0 MCHC 32.9 L RDW 18.8 H Plt Count 227 MPV 8.1 Neut % (Auto) 58.3 Lymph % (Auto) 26.8 [place] % (Auto) 10.0 Eos % (Auto) 4.0 Baso % (Auto) 0.9 Neut # (Auto) 4.4 Lymph # (Auto) 2.0 [place] # (Auto) 0.7 Eos # (Auto) 0.3 Baso # (Auto) 0.1 pCO2 41 pO2 177 H HCO3 35.3 H ABG pH 7.56 H ABG Total CO2 38.0 H ABG O2 Saturation 100.8 H ABG O2 Content 11.4 L ABG Base Excess 13.3 H ABG Hemoglobin 8.0 L ABG Carboxyhemoglobin 1.9 H POC ABG HHb (Measured) -0.8 L ABG Methemoglobin 1.0 ABG O2 Capacity 11.3 L Roberto Test Yes A-a O2 Difference 128.0 Hgb O2 Saturation 97.8 Vent Mode Prvc ac Mechanical Rate 18 FiO2 50.0 Tidal Volume 450 PEEP 5 Sodium 139 Potassium 3.5 L Chloride 98 Carbon Dioxide 36 H Anion Gap 9 L BUN 15 Creatinine 0.5 L Est GFR ( Amer) > 60 Est GFR (Non-Af Amer) > 60 Random Glucose 107 Calcium 8.0 L Assessment & Plan (1) Altered mental status Assessment and Plan: Unable to ingest food due to coma. If PEG is desired by legal guardian will perform procedure toward the end of the week. Plavix stopped yesterday. Status: Acute Priority: High
[2018-01-03 04:46] LABS: ABG ALLEN TEST YES; ARTERIAL BLOOD GAS HCO3 33.7 mmol/L (21-28); ARTERIAL BLOOD GAS HEMOGLOBIN 7.7 g/dL (11.7-17.4); ARTERIAL BLOOD GAS O2 CAPACITY 10.6 mL/dL (16-24); ARTERIAL BLOOD GAS O2 CONTENT 10.7 ML/dL (15-23); ARTERIAL BLOOD GAS O2 SAT 100.6 % (95-98); ARTERIAL BLOOD GAS PCO2 43 mm/Hg (35-45); ARTERIAL BLOOD GAS PH 7.52 (7.35-7.45); ARTERIAL BLOOD GAS PO2 92 mm/Hg (80-100); ARTERIAL BLOOD GAS TCO2 36.4 mmol/L (22-28)
[2018-01-03 05:38] LABS: HEMOGLOBIN 7.7 g/dL (12.0-18.0); MEAN CELL VOLUME 94.1 fl (80.0-94.0); MEAN CORPUSCULAR HEMOGLOBIN 31.3 pg (27.0-31.0); MEAN CORPUSCULAR HGB CONC 33.3 g/dL (33.0-37.0); RBC 2.46 Mil/uL (4.40-5.90); RED CELL DISTRIBUTION WIDTH 18.4 % (11.5-14.5); WHITE BLOOD COUNT 7.5 K/uL (4.8-10.8)
[2018-01-03 05:42] LABS: BLOOD UREA NITROGEN 16 mg/dl (9-20); CALCIUM 7.9 mg/dL (8.4-10.2); GFR AFRICAN-AMERICAN > 60; GFR NON-AFRICAN AMERICAN > 60
[2018-01-03] MEDS: Ferrous Sulfate 300 mg/5 mL Liq UD PO SCH (08:20)
--- NOTE | 2018-01-03 09:47 | CP.PCM.PN ---
Subjective - Date & Time of Evaluation Date of Evaluation: 01/03/18 Time of Evaluation: 09:00 - Subjective Subjective: Patient continues to be intubated PRVC/AC 18/450/5/40% No new fevers No change from yesterday Responds to deep pain Objective - Vital Signs/Intake and Output Vital Signs (last 24 hours): Temp Pulse Resp BP Pulse Ox 99.6 F 94 H 18 88/59 L 100 01/03/18 08:00 01/03/18 08:00 01/03/18 08:00 01/03/18 08:00 01/03/18 08:00 Intake and Output: 01/03/18 01/03/18 06:59 18:59 Intake Total 1330 120 Output Total 680 Balance 650 120 - Medications Medications: Current Medications Acetaminophen (Tylenol 650mg/20.3ml Solution Ud) 650 mg PO Q6 PRN PRN Reason: fever > 100.4 Last Admin: 12/30/17 09:38 Dose: 650 mg Aspirin (Aspirin Chewable) 81 mg NG DAILY [facility] Last Admin: 12/31/17 09:24 Dose: 81 mg Atorvastatin Calcium (Lipitor) 40 mg PO HS [facility] Last Admin: 01/02/18 21:37 Dose: 40 mg Clopidogrel Bisulfate (Plavix) 75 mg NG DAILY [facility] Last Admin: 12/31/17 09:24 Dose: 75 mg Docusate Sodium (Colace Liquid) 100 mg PO TID [facility] Last Admin: 01/03/18 08:20 Dose: 100 mg Enoxaparin Sodium (Lovenox) 40 mg SC HS [facility] PRN Reason: Protocol Last Admin: 01/02/18 21:37 Dose: 40 mg Famotidine (Pepcid) 40 mg PO DAILY [facility] Last Admin: 01/03/18 08:20 Dose: 40 mg Ferrous Sulfate (Feosol Liq) 300 mg PO DAILY [facility] Last Admin: 01/03/18 08:20 Dose: 300 mg Folic Acid (Folic Acid) 1 mg GT DAILY [facility] Last Admin: 01/03/18 08:20 Dose: 1 mg Ampicillin Sodium/Sulbactam (Sodium 1.5 gm/ Sodium Chloride) 100 mls @ 100 mls/ hr IVPB Q6 [facility] PRN Reason: Protocol Stop: 01/03/18 17:17 Last Admin: 01/03/18 04:27 Dose: 100 mls/hr Thiamine HCl (Vitamin B1 Tab) 100 mg NG DAILY [facility] Last Admin: 01/03/18 08:20 Dose: 100 mg - Labs Labs: 01/03/18 04:40 01/03/18 04:40 PT 12.4 Seconds (9.8-13.1) 01/01/18 07:00 INR 1.1 (0.9-1.2) 01/01/18 07:00 APTT 35.6 Seconds (25.6-37.1) 01/01/18 07:00 - Additional Findings Additional findings: Physical exam: Constitutional- chronically ill, intubated on ventilator Head- NCAT, Pupils not reactive to light 4 mm Eye- PERRL, EOMI ENT- normal exam, MMM. +No gag reflex Neck- normal inspection, supple, no JVD Respiratory- CTAB, no wheezes rales rhonchi Cardiovascular- RRR, +S1, +S2 no MRG GI/Abdominal- + OG tube, normal bowel sounds, soft, no mass, no hsm Skin- warm, dry. + Pedal edema, edematous upper extremity. Extremities Exam- normal capillary refill, normal inspection Neurological Exam- Fixed pupils, nonreactive, breathing over the vent. Assessment and Plan - Assessment and Plan (Free Text) Plan: Assessment and Plan (1) Acute CVA (cerebrovascular accident) Status: Acute (2) Altered mental status Status: Acute (3) Slurring of speech Status: Acute (4) HTN (hypertension) Status: Chronic (5) Acute metabolic encephalopathy Status: Acute (6) Acute respiratory insufficiency Status: Acute (7) DVT prophylaxis Status: Acute 62 y/o White male , initially admitted as Tez White , now identified by Police as Jesus Grayson , unknown PMH was brought by EMS after he was observed by bystanders falling in the street. Patient was lethargic on admission however arousable , noted to have a facial droop and his speech was slurred. 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 He was transferred to ICU and intubated for airway protection. Repeat CT of head showed no change but MRI showed pontine, midbrain, cerebellar hemispheres and thalami infarct. 11/22: With episode of vomiting and possible aspiration became hypotensive, tachycardic, febrile, and hypoxemic Repeat CT head 11/28 showed :Gross edematous changes affect cerebellar hemispheres bilaterally sparing only the inferior margins somewhat and causing compression on the the mid to lower brainstem. The 4th ventricle is partially effaced but no obstructive hydrocephalus appreciated at this time. Edema has extend into the bilateral thalami, right greater than left further indicative of expanding infarction. No intracranial hemorrhage. Given patient's poor prognosis medical team following him has decided that it is appropriate to " not Escalate treatment " and DNR order placed. Ethics Committee meeting recommended Emergency guardianship which is in progress. Temporary guardians came to hospital 12/20 and received all information in regards to patient's medical condition and prognosis. They agreed to DNR order, also agreed to Trach and PEG placement 1. Acute CVA/ Coma state Patient is comatose , pupils fixed , unequal size not reactive to light ,gag reflex present. Breaths over the vent and maintains his BP MRI brain showed pontine , midbrain, cerebellar hemispheres and thalamic infarct Repeat CT of head 11/28 showed :Gross edematous changes affect cerebellar hemispheres bilaterally sparing only the inferior margins somewhat and causing compression on the the mid to lower brainstem. The 4th ventricle is partially effaced but no obstructive hydrocephalus appreciated at this time. Edema has extend into the bilateral thalami, right greater than left further indicative of expanding infarction. No intracranial hemorrhage. Poor Prognosis Neurology on consult Continue ASA [facility] has been notified Given patient's poor prognosis medical team following him has decided a Do not Escalate treatment and DNR order in place. Temporary guardianship is in effect and agrees to DNR order and Trach/PEG Repeat CT of head 12/26 -Interval evolution previously noted of large acute infarct which involves keshia in both cerebellar hemispheres including vermis. There also has been interval evolution of posterior bilateral basal nuclei ischemic changes Diffuse/confluent chronic periventricular white matter ischemic changes extending peripherally into the deep and subcortical white matter both cerebral hemispheres. In addition, there are multiple additional chronic appearing bilateral basal nuclei lacunar type infarcts also seen. There is persistent dilatation of the temporal horns and atria bilaterally likely due to asymmetric central volume loss most pronounced in the posterior temporal lobes and occipital parietal regions Discussed case with Dr Mcneill - he does not feel that pt would improved or have meaningful life ahead- pt has extensive CVA , brain does not communicate with spinal cord. 12/27 : Temporary Guardian- George Garland , given pt's very poor prognosis/ comatose state , discussed withdrawal of care - she stated that since she is not in the medical field and does not know pt, she would like to defer this decision and wait for the Public Guardianship to decide of these. 12/31: Temp Guardian agrees to Trach and PEG placement- consulted Surgery and GI Hold off on ASA and Plavix as pt is for Trach and PEG 2. Sepsis due to Aspiration Pneumonia-resolved Still orally Intubated since 11/16 ( ET tube changed 12/09) on Vent (PVRC/AC 16/450 /5/50%) procalcitonin was elevated , intermittent fever Off Levophed, all antibiotics d/c trachea aspirate: positive for Citrobacter and 1 blood cx positive for Staph coag negative ( ? contaminant),repeat blood cultures negative completed IV antibiotic treatment with Cipro and Vanco - now off antibiotics ID consulted : Dr. Anderson Keep HOB elevated , aspiration, precautions,respiratory toilet with frequent suctioning CXR showed no infiltrate today Repeat Trach Aspirate c/s : Beta hemolytic Strep - Unasyn started on 12/26 #01/14 - will d/c in am 3. Atelectasis , left lung likely from mucus plugging CXR showed whole left lung white out and presently opened Trach Asp C/S: Beta hemolytic Strep- Unasyn started by Dr Finn Continue Deep suctioning by Respiratory team 4. UTI-treated urine cx positive for Strep viridans - completed treatment with Vanco IV for 2 weeks 5. ? Alcoholism unclear if alcoholic, cannot obtain hx however ED note stated that patient has history of ETOH ETOH level low urine Tox : neg cont Thiamine and FA 6. Anemia, chronic dis sl. drop during hospitalization likely due to acute medical condition, blood drawing will hold off on transfusion unless Hgb drops to less than 7 or if pt shows any signs on hemodynamic instability/. 7.DVT prophylaxis Acute Lovenox
--- NOTE | 2018-01-03 10:10 | RAD ---
HISTORY: intubation COMPARISON: Comparison 01/02/2018 FINDINGS: In situ ETT, tip of which lies lies well above the haresh (approximately 8.85 cm). In situ NGT with distal aspect coiled below EG junction. LUNGS: Mild bibasilar atelectasis left greater than right with improved left-sided effusion. PLEURA: No significant pleural effusion identified, no pneumothorax apparent. CARDIOVASCULAR: Normal. OSSEOUS STRUCTURES: No significant abnormalities. VISUALIZED UPPER ABDOMEN: Normal. OTHER FINDINGS: None. IMPRESSION: ETT and NGT as above. Mild bibasilar atelectasis left greater than right. Improved left-sided effusion
--- NOTE | 2018-01-03 12:34 | CP.CCUPN ---
CCU Subjective - Physician Review Subjective (Free Text): 01/03/18 The patient was Seen and examined by me at the bedside during ICU round, Medical records reviewed and Management issues were discussed and formulated with the house staff. Events reviewed Pt remains orally intubated and mechanically ventilated. PRVC AC12 TV450 FiO2 40 % PEEP5. Remains Afebrile, Currently on antibiotics with IV Vanco and Cipro BP stable. NSR on the monitor Comatosed, no improvement of mental status, unresponsive to painful stimuli. Pupils remain fixed and dilated, No corneal reflex or Gag reflex identified. intact. Patient breathing over the vent. Tolerating tube feeding. Pt off antibiotics, completed a course of Vanco and Zosyn 12/02; Sputum C/S positive Citrobacter Diversus 12/05; Urine C/S no growth (11/16: Urine C/S positive for gram positive Cocci ( Strep viridans ) 12/05; Blood C/S with no growth 12/05; Blood C/S Pos Coagulase negative Staph Last 24H I&O 1900/1575 This morning labs revealed No Leucocytosis, Stable renal function. Plavix on hold possible Trach/Peg this week Discussed the plan with Temporary Guardian- George Garland [phone], She has given consent for perusing with Trach, but not for PEG. She does not feel comfortable consenting for withdrawal of care since she is not in the medical field and does not know pt, she would like to defer this decision for the permanent Public Guardianship. CCU Objective - Vital Signs / Intake & Output Vital Signs (Last 4 hours): Vital Signs Pulse Resp BP Pulse Ox 01/03/18 10:00 95 H 18 109/63 100 Intake and Output (Last 8hrs): Intake & Output 01/02/18 01/03/18 01/03/18 22:59 06:59 14:59 Intake Total 728 992 490 Output Total 600 680 Balance 128 312 490 Weight 152 lb Intake: IV 8 12 Intake, Piggyback 200 100 Tube Feeding 420 480 240 Free Water Flush 300 300 150 Output: Urine 600 680 2-way Urethral 600 680 Other: # Bowel Movements 1 - Physical Exam Head: Positive for: Atraumatic, Normocephalic. Negative for: Ecchymosis, Abrasion, Laceration Pupils: Negative for: PERRL Extroacular Muscles: Negative for: EOMI Conjunctiva: Positive for: Normal. Negative for: Injected, Icteric Ears: Positive for: Normal Mouth: Positive for: Moist Mucous Membranes Pharnyx: Negative for: ERYTHEMA, EXUDATE, TONSILS ENLARGED Neck: Positive for: Trachea Midline. Negative for: JVD, Lymphadenopathy Respiratory/Chest: Positive for: Clear to Auscultation ( distant breath sounds b /l). Negative for: Rales, Retracting, Rhonchi Cardiovascular: Positive for: Regular Rate and Rhythm, Normal S1, S2, Peripheal Pulses Present (faint). Negative for: Rub, Gallop Abdomen: Positive for: Normal Bowel Sounds. Negative for: Distention, Peritoneal Signs Upper Extremity: Positive for: Capillary Refill < 2s. Negative for: Cyanosis, Erythema Lower Extremity: Negative for: Normal Inspection (DTI), Edema, NORMAL PULSES ( faint), Swelling, Temperature Abnormalties Neurological: Positive for: Other (on ventilator, no response to verbal stimuli) . Negative for: GCS=15 (4T), Speech Normal, Motor Func Grossly Intact, Normal Sensory Function Skin: Positive for: Dry. Negative for: Laceration Lymphatic: Negative for: Cervical Adenopathy Psychiatric: Positive for: Other (comatose). Negative for: Alert, Oriented x 3 - Medications Active Medications: Active Medications Generic Name Dose Route Start Last Admin Trade Name Freq PRN Reason Stop Dose Admin Acetaminophen 650 mg 11/27/17 00:56 12/30/17 09:38 Tylenol 650mg/20.3ml Solution Ud PO 650 mg Q6 PRN Administration fever > 100.4 Aspirin 81 mg 11/19/17 09:00 12/31/17 09:24 Aspirin Chewable NG 81 mg DAILY [facility] Administration Atorvastatin Calcium 40 mg 11/17/17 22:00 01/02/18 21:37 Lipitor PO 40 mg HS [facility] Administration Clopidogrel Bisulfate 75 mg 11/18/17 09:45 12/31/17 09:24 Plavix NG 75 mg DAILY [facility] Administration Docusate Sodium 100 mg 01/02/18 13:00 01/03/18 12:08 Colace Liquid PO 100 mg TID [facility] Administration Enoxaparin Sodium 40 mg 12/22/17 22:00 01/02/18 21:37 Lovenox SC 40 mg HS [facility] Administration Protocol Famotidine 40 mg 12/02/17 09:00 06/26/18 08:20 Pepcid PO 40 mg DAILY [facility] Administration Ferrous Sulfate 300 mg 12/18/17 09:00 01/03/18 08:20 Feosol Liq PO 300 mg DAILY [facility] Administration Folic Acid 1 mg 11/17/17 09:00 01/03/18 08:20 Folic Acid GT 1 mg DAILY [facility] Administration Ampicillin Sodium/Sulbactam 100 mls @ 100 mls/hr 01/02/18 17:16 01/03/18 10: 31 Sodium 1.5 gm/ Sodium Chloride IVPB 01/03/18 17:17 100 mls/hr Q6 [facility] Administration Protocol Thiamine HCl 100 mg 12/12/17 09:00 01/03/18 08:20 Vitamin B1 Tab NG 100 mg DAILY [facility] Administration - Patient Studies Lab Studies: Lab Studies 01/03/18 01/03/18 01/03/18 Range/Units 04:40 04:40 04:18 WBC 7.5 (4.8-10.8) K/uL RBC 2.46 L (4.40-5.90) Mil/uL Hgb 7.7 L (12.0-18.0) g/dL Hct 23.2 L (35.0-51.0) % MCV 94.1 H (80.0-94.0) fl MCH 31.3 H (27.0-31.0) pg MCHC 33.3 (33.0-37.0) g/dL RDW 18.4 H (11.5-14.5) % Plt Count 215 (130-400) K/uL pCO2 43 (35-45) mm/Hg pO2 92 (80-100) mm/Hg HCO3 33.7 H (21-28) mmol/L ABG pH 7.52 H (7.35-7.45) ABG Total CO2 36.4 H (22-28) mmol/L ABG O2 Saturation 100.6 H (95-98) % ABG O2 Content 10.7 L (15-23) ML/dL ABG Base Excess 11.2 H (-2.0-3.0) mmol/L ABG Hemoglobin 7.7 L (11.7-17.4) g/dL ABG Carboxyhemoglobin 2.4 H (0.5-1.5) % POC ABG HHb (Measured) -0.6 L (0.0-5.0) % ABG Methemoglobin 1.2 (0.0-3.0) % ABG O2 Capacity 10.6 L (16-24) mL/dL Roberto Test Yes A-a O2 Difference 139.0 mm/Hg Hgb O2 Saturation 97.0 (95.0-98.0) % Vent Mode A/c Mechanical Rate 18 FiO2 40.0 % Tidal Volume 450 PEEP 5 Sodium 136 (132-148) mmol/l Potassium 3.7 (3.6-5.0) MMOL/L Chloride 97 L (98-107) mmol/L Carbon Dioxide 31 H (22-30) mmol/L Anion Gap 12 (10-20) BUN 16 (9-20) mg/dl Creatinine 0.5 L (0.8-1.5) mg/dl Est GFR ( Amer) > 60 Est GFR (Non-Af Amer) > 60 Random Glucose 97 (75-110) mg/dL Calcium 7.9 L (8.4-10.2) mg/dL Laboratory Results - last 24 hr 01/03/18 01/03/18 01/03/18 04:18 04:40 04:40 WBC 7.5 RBC 2.46 L Hgb 7.7 L Hct 23.2 L MCV 94.1 H MCH 31.3 H MCHC 33.3 RDW 18.4 H Plt Count 215 pCO2 43 pO2 92 HCO3 33.7 H ABG pH 7.52 H ABG Total CO2 36.4 H ABG O2 Saturation 100.6 H ABG O2 Content 10.7 L ABG Base Excess 11.2 H ABG Hemoglobin 7.7 L ABG Carboxyhemoglobin 2.4 H POC ABG HHb (Measured) -0.6 L ABG Methemoglobin 1.2 ABG O2 Capacity 10.6 L Roberto Test Yes A-a O2 Difference 139.0 Hgb O2 Saturation 97.0 Vent Mode A/c Mechanical Rate 18 FiO2 40.0 Tidal Volume 450 PEEP 5 Sodium 136 Potassium 3.7 Chloride 97 L Carbon Dioxide 31 H Anion Gap 12 BUN 16 Creatinine 0.5 L Est GFR ( Amer) > 60 Est GFR (Non-Af Amer) > 60 Random Glucose 97 Calcium 7.9 L Fingerstick Blood Sugar Results: 142 Review of Systems - Review of Systems Systems not reviewed;Unavailable: Altered Mental Status Critical Care Progress Note - Ventilator Checklist Head of Bed 30 Degrees: Yes Daily Sedation Vacation: Yes Daily Assessment of Readiness to Wean: Yes Daily Spontaneous Breathing Trial: Yes PUD Prophalyxis: Yes DVT Prophylaxis: Yes Oral Care with Chlorhexidine Gluconate {CHG}: Yes Assessment/Plan (1) Acute respiratory insufficiency Current Visit: Yes Status: Acute Comment: Patient intubated for airway protection, due to Altered Level of consciousness Not a candidate for Vent weaning due to poor mental status Aggressive pulmonary toilet Maintain aspiration precautions GI/DVT PPX (2) Ischemic stroke Current Visit: Yes Status: Acute Comment: 11/21/2017: CT HEAD WITHOUT CONTRAST. Evolution of brain infarction is identified partially obscured at the brainstem and more obvious at the bilateral cerebral peduncle as well as small foci at both cerebellar hemispheres as discussed above. No intracranial hemorrhage or significant mass appreciable this at this time. Reiteration of age related neuro degenerative changes. 12/26/2017: Repeat CT of head Interval evolution previously noted of large acute infarct which involves keshia in both cerebellar hemispheres including vermis. There also has been interval evolution of posterior bilateral basal nuclei ischemic changes Diffuse/confluent chronic periventricular white matter ischemic changes extending peripherally into the deep and subcortical white matter both cerebral hemispheres. In addition, there are multiple additional chronic appearing bilateral basal nuclei lacunar type (3) Severe sepsis Current Visit: Yes Status: Acute Priority: High Comment: Pt off antibiotics Pt completed a course of Vanco and Zosyn for 2 weeks, Aso completed a course of IV Cipro 12/02; Sputum C/S positive Citrobacter Diversus 12/05; Urine C/S no growth (11/16: Urine C/S positive for gram positive Cocci ) 12/05; Blood C/S with no growth Last 24H I&O 2864/2300 This morning labs revealed No Leucocytosis, Stable renal function. (4) Acute metabolic encephalopathy Current Visit: Yes Status: Acute Priority: High Comment: Pt Comatosed, no improvement of mental status
[2018-01-03] MEDS: Enoxaparin 40 mg Syringe SC SCH (21:22)
[2018-01-04 05:32] LABS: ABG ALLEN TEST YES; ARTERIAL BLOOD GAS HCO3 34.1 mmol/L (21-28); ARTERIAL BLOOD GAS HEMOGLOBIN 7.8 g/dL (11.7-17.4); ARTERIAL BLOOD GAS O2 CAPACITY 10.9 mL/dL (16-24); ARTERIAL BLOOD GAS O2 CONTENT 10.9 ML/dL (15-23); ARTERIAL BLOOD GAS O2 SAT 99.9 % (95-98); ARTERIAL BLOOD GAS PCO2 39 mm/Hg (35-45); ARTERIAL BLOOD GAS PH 7.56 (7.35-7.45); ARTERIAL BLOOD GAS PO2 123 mm/Hg (80-100); ARTERIAL BLOOD GAS TCO2 36.1 mmol/L (22-28)
[2018-01-04 05:44] LABS: HEMOGLOBIN 7.8 g/dL (12.0-18.0); MEAN CELL VOLUME 95.5 fl (80.0-94.0); MEAN CORPUSCULAR HEMOGLOBIN 31.4 pg (27.0-31.0); MEAN CORPUSCULAR HGB CONC 32.9 g/dL (33.0-37.0); RBC 2.47 Mil/uL (4.40-5.90); RED CELL DISTRIBUTION WIDTH 19.3 % (11.5-14.5); WHITE BLOOD COUNT 8.1 K/uL (4.8-10.8)
[2018-01-04 06:12] LABS: BLOOD UREA NITROGEN 16 mg/dl (9-20); CALCIUM 8.1 mg/dL (8.4-10.2); GFR AFRICAN-AMERICAN > 60; GFR NON-AFRICAN AMERICAN > 60
[2018-01-04] MEDS: Ferrous Sulfate 300 mg/5 mL Liq UD PO SCH (08:36)
--- NOTE | 2018-01-04 10:10 | RAD ---
PROCEDURE: CHEST RADIOGRAPH, 1 VIEW HISTORY: pt intubated COMPARISON: Comparison chest 01/03/2018. FINDINGS: In situ ETT tip of which lies approximately 7.1 cm. In situ NGT tip of which has not been included on this film though distal aspect lies in the mid right parasagittal abdomen LUNGS: Mild bibasilar atelectasis right greater PLEURA: No pneumothorax or pleural fluid seen. CARDIOVASCULAR: Normal. OSSEOUS STRUCTURES: No significant abnormalities. VISUALIZED UPPER ABDOMEN: Normal. OTHER FINDINGS: None. IMPRESSION: ETT and NGT as above. Mild bibasilar atelectasis.
--- NOTE | 2018-01-04 10:29 | CP.PCM.PN ---
Subjective - Date & Time of Evaluation Date of Evaluation: 01/04/18 Time of Evaluation: 10:15 - Subjective Subjective: General surgery Pt seen and examined this AM. Pt is not arousable to verbal stimuli. Pt is pending tracheostomy placement if consent is given, Plavix and aspirin held with last dose on 12/31/17. This pt currently has a temporary legal guardian, Mary Kate Garland [phone], and when I called her to get consent today she reports that the court hearing that was originally scheduled for 01/19/18 was pushed up to tomorrow 01/05/18 at 1330. She states at this time a permanent guardian will be granted by the office of public guardians. After the hearing, she will ask the heat engineering teacher if she can continue to make decisions until the permanent guardian's paperwork goes through. She would like the team to call her in the late afternoon tomorrow for an update on her role with the patient. Labs and vitals noted. PE Gen: Pt laying in bed in NAD. Comatosed. Skin: warm and dry ENT: (+) intubated, FiO2 40% Peep 5, RR18 Cardio: S1S2 RRR Lungs: CTA Bilaterally of anterior lung peres Abd: soft, (-) apparent tenderness A/P AMS/CVA/Vent dependent Pt is pending tracheostomy Pt is still pending medical clearance, spoke with hospitalist and title vehicle service attendant If consent is given for trach tomorrow, then the pt will be scheduled for 01/06 Objective - Vital Signs/Intake and Output Vital Signs (last 24 hours): Temp Pulse Resp BP Pulse Ox 98.4 F 79 18 96/68 L 100 01/04/18 08:00 01/04/18 08:00 01/04/18 08:00 01/04/18 08:00 01/04/18 08:00 Intake and Output: 01/04/18 01/04/18 06:59 18:59 Intake Total 1170 120 Output Total 1000 Balance 170 120 - Medications Medications: Current Medications Acetaminophen (Tylenol 650mg/20.3ml Solution Ud) 650 mg PO Q6 PRN PRN Reason: fever > 100.4 Last Admin: 12/30/17 09:38 Dose: 650 mg Aspirin (Aspirin Chewable) 81 mg NG DAILY [facility] Last Admin: 12/31/17 09:24 Dose: 81 mg Atorvastatin Calcium (Lipitor) 40 mg PO HS [facility] Last Admin: 01/03/18 21:21 Dose: 40 mg Clopidogrel Bisulfate (Plavix) 75 mg NG DAILY [facility] Last Admin: 12/31/17 09:24 Dose: 75 mg Docusate Sodium (Colace Liquid) 100 mg PO TID [facility] Last Admin: 01/04/18 08:36 Dose: 100 mg Enoxaparin Sodium (Lovenox) 40 mg SC HS [facility] PRN Reason: Protocol Last Admin: 01/03/18 21:22 Dose: 40 mg Famotidine (Pepcid) 40 mg PO DAILY [facility] Last Admin: 01/04/18 08:37 Dose: 40 mg Ferrous Sulfate (Feosol Liq) 300 mg PO DAILY [facility] Last Admin: 01/04/18 08:36 Dose: 300 mg Folic Acid (Folic Acid) 1 mg GT DAILY [facility] Last Admin: 01/04/18 08:37 Dose: 1 mg Thiamine HCl (Vitamin B1 Tab) 100 mg NG DAILY [facility] Last Admin: 01/04/18 08:37 Dose: 100 mg - Labs Labs: 01/04/18 04:50 01/04/18 04:50 PT 12.4 Seconds (9.8-13.1) 01/01/18 07:00 INR 1.1 (0.9-1.2) 01/01/18 07:00 APTT 35.6 Seconds (25.6-37.1) 01/01/18 07:00
--- NOTE | 2018-01-04 14:50 | CP.PCM.PN ---
Subjective - Date & Time of Evaluation Date of Evaluation: 01/04/18 Time of Evaluation: 11:00 - Subjective Subjective: Patient was seen and examined this morning. Continues to be intubated, no acute events overnight. Responds to deep painful stimuli. Permanent guardianship hearing planned for 01/05/18 at 1330, after which time the decision will be made concerning trach/PEG by the permanent guardian if granted (trach likely for 01/06/18) Objective - Vital Signs/Intake and Output Vital Signs (last 24 hours): Temp Pulse Resp BP Pulse Ox 98.9 F 86 18 116/76 100 01/04/18 12:00 01/04/18 12:00 01/04/18 12:00 01/04/18 12:00 01/04/18 12:00 Intake and Output: 01/04/18 01/04/18 06:59 18:59 Intake Total 1170 510 Output Total 1000 Balance 170 510 - Medications Medications: Current Medications Acetaminophen (Tylenol 650mg/20.3ml Solution Ud) 650 mg PO Q6 PRN PRN Reason: fever > 100.4 Last Admin: 12/30/17 09:38 Dose: 650 mg Aspirin (Aspirin Chewable) 81 mg NG DAILY [facility] Last Admin: 12/31/17 09:24 Dose: 81 mg Atorvastatin Calcium (Lipitor) 40 mg PO HS [facility] Last Admin: 01/03/18 21:21 Dose: 40 mg Clopidogrel Bisulfate (Plavix) 75 mg NG DAILY [facility] Last Admin: 12/31/17 09:24 Dose: 75 mg Docusate Sodium (Colace Liquid) 100 mg PO TID [facility] Last Admin: 01/04/18 12:20 Dose: 100 mg Enoxaparin Sodium (Lovenox) 40 mg SC HS [facility] PRN Reason: Protocol Last Admin: 01/03/18 21:22 Dose: 40 mg Famotidine (Pepcid) 40 mg PO DAILY [facility] Last Admin: 01/04/18 08:37 Dose: 40 mg Ferrous Sulfate (Feosol Liq) 300 mg PO DAILY [facility] Last Admin: 01/04/18 08:36 Dose: 300 mg Folic Acid (Folic Acid) 1 mg GT DAILY [facility] Last Admin: 01/04/18 08:37 Dose: 1 mg Thiamine HCl (Vitamin B1 Tab) 100 mg NG DAILY [facility] Last Admin: 01/04/18 08:37 Dose: 100 mg - Labs Labs: 01/04/18 04:50 01/04/18 04:50 PT 12.4 Seconds (9.8-13.1) 01/01/18 07:00 INR 1.1 (0.9-1.2) 01/01/18 07:00 APTT 35.6 Seconds (25.6-37.1) 01/01/18 07:00 - Additional Findings Additional findings: Physical exam: Constitutional- chronically ill, intubated on ventilator Head- NCAT, Pupils not reactive to light 4 mm Eye- PERRL, EOMI ENT- normal exam, MMM. +No gag reflex Neck- normal inspection, supple, no JVD Respiratory- CTAB, no wheezes rales rhonchi Cardiovascular- RRR, +S1, +S2 no MRG GI/Abdominal- + OG tube, normal bowel sounds, soft, no mass, no hsm Skin- warm, dry. + Pedal edema, edematous upper extremity. Extremities Exam- normal capillary refill, normal inspection Neurological Exam- Fixed pupils, nonreactive, breathing over the vent. Assessment and Plan - Assessment and Plan (Free Text) Plan: Assessment and Plan - Assessment and Plan (Free Text) Plan: Assessment and Plan (1) Acute CVA (cerebrovascular accident) Status: Acute (2) Altered mental status Status: Acute (3) Slurring of speech Status: Acute (4) HTN (hypertension) Status: Chronic (5) Acute metabolic encephalopathy Status: Acute (6) Acute respiratory insufficiency Status: Acute (7) DVT prophylaxis Status: Acute 62 y/o White male , initially admitted as Tez White , now identified by Police as Jesus Grayson , unknown PMH was brought by EMS after he was observed by bystanders falling in the street. Patient was lethargic on admission however arousable , noted to have a facial droop and his speech was slurred. 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 He was transferred to ICU and intubated for airway protection. Repeat CT of head showed no change but MRI showed pontine, midbrain, cerebellar hemispheres and thalami infarct. 11/22: With episode of vomiting and possible aspiration became hypotensive, tachycardic, febrile, and hypoxemic Repeat CT head 11/28 showed :Gross edematous changes affect cerebellar hemispheres bilaterally sparing only the inferior margins somewhat and causing compression on the the mid to lower brainstem. The 4th ventricle is partially effaced but no obstructive hydrocephalus appreciated at this time. Edema has extend into the bilateral thalami, right greater than left further indicative of expanding infarction. No intracranial hemorrhage. Given patient's poor prognosis medical team following him has decided that it is appropriate to " not Escalate treatment " and DNR order placed. Ethics Committee meeting recommended Emergency guardianship which is in progress. Temporary guardians came to hospital 12/20 and received all information in regards to patient's medical condition and prognosis. They agreed to DNR order, also agreed to Trach and PEG placement 1. Acute CVA/ Coma state Patient is comatose , pupils fixed , unequal size not reactive to light ,gag reflex present. Breaths over the vent and maintains his BP MRI brain showed pontine , midbrain, cerebellar hemispheres and thalamic infarct Repeat CT of head 11/28 showed :Gross edematous changes affect cerebellar hemispheres bilaterally sparing only the inferior margins somewhat and causing compression on the the mid to lower brainstem. The 4th ventricle is partially effaced but no obstructive hydrocephalus appreciated at this time. Edema has extend into the bilateral thalami, right greater than left further indicative of expanding infarction. No intracranial hemorrhage. Poor Prognosis Neurology on consult Continue ASA [facility] network has been notified Given patient's poor prognosis medical team following him has decided a Do not Escalate treatment and DNR order in place. Permanent guardianship hearing planned for 01/05/18 Patient at acceptable medical risk for low risk procedure (tracheostomy), if desired by the permanent guardian. Continue to hold ASA/Plavix Repeat CT of head 12/26 -Interval evolution previously noted of large acute infarct which involves keshia in both cerebellar hemispheres including vermis. There also has been interval evolution of posterior bilateral basal nuclei ischemic changes Diffuse/confluent chronic periventricular white matter ischemic changes extending peripherally into the deep and subcortical white matter both cerebral hemispheres. In addition, there are multiple additional chronic appearing bilateral basal nuclei lacunar type infarcts also seen. There is persistent dilatation of the temporal horns and atria bilaterally likely due to asymmetric central volume loss most pronounced in the posterior temporal lobes and occipital parietal regions Discussed case with Dr Mcneill - he does not feel that pt would improved or have meaningful life ahead- pt has extensive CVA , brain does not communicate with spinal cord. 12/27 : Temporary Guardian- George Garland , given pt's very poor prognosis/ comatose state , discussed withdrawal of care - she stated that since she is not in the medical field and does not know pt, she would like to defer this decision and wait for the Public Guardianship to decide of these. 12/31: Temp Guardian agrees to Trach and PEG placement- consulted Surgery and GI Hold off on ASA and Plavix as pt is for Trach and PEG 2. Sepsis due to Aspiration Pneumonia-resolved Still orally Intubated since 11/16 ( ET tube changed 12/09) on Vent (PVRC/AC 16/450 /5/50%) procalcitonin was elevated , intermittent fever Off Levophed, all antibiotics d/c trachea aspirate: positive for Citrobacter and 1 blood cx positive for Staph coag negative ( ? contaminant),repeat blood cultures negative completed IV antibiotic treatment with Cipro and Vanco - now off antibiotics ID consulted : Dr. Anderson Keep HOB elevated , aspiration, precautions,respiratory toilet with frequent suctioning CXR showed no infiltrate today Repeat Trach Aspirate c/s : Beta hemolytic Strep - Unasyn started on 12/26 #01/14 - will d/c in am 3. Atelectasis , left lung likely from mucus plugging CXR showed whole left lung white out and presently opened Trach Asp C/S: Beta hemolytic Strep- Unasyn started by Dr Finn Continue Deep suctioning by Respiratory team 4. UTI-treated urine cx positive for Strep viridans - completed treatment with Vanco IV for 2 weeks 5. ? Alcoholism unclear if alcoholic, cannot obtain hx however ED note stated that patient has history of ETOH ETOH level low urine Tox : neg cont Thiamine and FA 6. Anemia, chronic dis sl. drop during hospitalization likely due to acute medical condition, blood drawing will hold off on transfusion unless Hgb drops to less than 7 or if pt shows any signs on hemodynamic instability/. 7.DVT prophylaxis Acute Lovenox
--- NOTE | 2018-01-04 16:39 | CP.CCUPN ---
CCU Subjective - Physician Review Subjective (Free Text): Overall neuromental status unchanged with deep coma, moves and writhes shoulders in response to pain stimulus, breathing 18 on AC 18. BP s remain low with SBP 80-90s, HR 70s. Other vitals and I/O's reviewed. T max 100.6 over last 24H. ROS: No other pertinent negs or positives on 10+ system review obtainable due to comatose date. PMSFH: Unknown relative to current disease state. All other Nursing and physician documentation reviewed to date; no new pertinent info noted relevant to current medical problems. EXAM- HEENT: no icterus, no gaze preference, pupils 3mm and NR, midline, blinks eyes on corneal reflex testing; +cough on ETT suctioning. NECK: No JVD, supple, carotids equal upstroke bilat/no bruits CHEST: decreased BS bases, no wheezes audible HEART: regular, distant, S1S2, no rubs or murmurs ABD: soft, no distention, no tympany, no palp tenderness, BS hypoactive EXT: No peripheral/ digital cyanosis, no calf tenderness or palpable cords, distal pulses intact and symmetrical. NEURO: flaccid x4 extremities SKIN: no rashes, warm and dry. LABS: ABG 7.56/39/123 WBC= 8.1 HGB= 7.8 PLTs= 219K Nm=215 K= 3.7 CL=96 HCO3= 32 BUN/Cr= 16/0.5 BS= 103 CXR: ETT position Ok above haresh, no new consolidation ( my interp). IMPRESSION / MAJOR PROBLEMS NOW: 1. Multi-CVA involving Genie, thalamic nuclei, and cerebellum 2. Acute Resp Failure 2 #1 3. s/p Accelerated HTN 2 CVA 4. s/p S. viridans UTI 5. Possible h/o ETOH Abuse suspected PLAN: 1. Stable, non-deteriorating neurologic status, with brain stem reflexes. Temporary Guardianship ends January 06, subsequently consent for Trach withdrawn and [facility] to be appointed after this date. 2. Persistent anemia, albeit from daily blood draws and no active bleeding evident. As blood test results have been stable, will change to every other day testing or if abnormalities suspected, or if there is a change in status. 3. If low BP levels evident, will not start vasopressors. In addition, transfusing PRBCs would be a life-pronging measure, will re-discuss with PMD and Guardian. 4. Present course of abx have been allowed to after over a 14 day course. No new leukocytosis nor signs of Sepsis noted. 5. Being excessively ventilated at current rate of 18 on A/C mode. Would decrease set rate to 12. Renal compensation for mild chronic CO2 retention.
[2018-01-04] MEDS: Enoxaparin 40 mg Syringe SC SCH (21:15)
[2018-01-05 04:11] LABS: ABG ALLEN TEST YES; ARTERIAL BLOOD GAS HCO3 32.4 mmol/L (21-28); ARTERIAL BLOOD GAS HEMOGLOBIN 9.6 g/dL (11.7-17.4); ARTERIAL BLOOD GAS O2 CAPACITY 13.3 mL/dL (16-24); ARTERIAL BLOOD GAS O2 CONTENT 13.3 ML/dL (15-23); ARTERIAL BLOOD GAS O2 SAT 99.8 % (95-98); ARTERIAL BLOOD GAS PCO2 42 mm/Hg (35-45); ARTERIAL BLOOD GAS PH 7.51 (7.35-7.45); ARTERIAL BLOOD GAS PO2 115 mm/Hg (80-100); ARTERIAL BLOOD GAS TCO2 34.8 mmol/L (22-28)
[2018-01-05 05:37] LABS: HEMOGLOBIN 7.9 g/dL (12.0-18.0); MEAN CELL VOLUME 95.7 fl (80.0-94.0); MEAN CORPUSCULAR HEMOGLOBIN 31.4 pg (27.0-31.0); MEAN CORPUSCULAR HGB CONC 32.8 g/dL (33.0-37.0); RBC 2.53 Mil/uL (4.40-5.90); RED CELL DISTRIBUTION WIDTH 19.6 % (11.5-14.5); WHITE BLOOD COUNT 7.6 K/uL (4.8-10.8)
[2018-01-05 05:47] LABS: BLOOD UREA NITROGEN 15 mg/dl (9-20); CALCIUM 8.3 mg/dL (8.4-10.2); GFR AFRICAN-AMERICAN > 60; GFR NON-AFRICAN AMERICAN > 60
--- NOTE | 2018-01-05 07:23 | CP.PCM.PN ---
Subjective - Date & Time of Evaluation Date of Evaluation: 01/05/18 Time of Evaluation: 07:19 - Subjective Subjective: pt intubated, sedated vitals stable no changes in status no acute distress. Objective - Vital Signs/Intake and Output Vital Signs (last 24 hours): Temp Pulse Resp BP Pulse Ox 97.9 F 86 18 120/70 100 01/05/18 06:00 01/05/18 06:00 01/05/18 06:00 01/05/18 06:00 01/05/18 06:00 Intake and Output: 01/05/18 01/05/18 06:59 18:59 Intake Total 1146 Output Total 1305 Balance -159 Vitals Reviewed GEN: intubated, sedated, unresponsive HEENT: NCAT, PERRL HEART: RRR, +S1S2, NO MRG LUNG: CTAB, NO WRR ABD: soft, ND, No HSM, No masses EXT: normal pedal pulses, normal capillary refill NEURO: intubated, sedated, unresponsive SKIN: warm, dry PSYCH: unable to obtain at this time - Medications Medications: Current Medications Acetaminophen (Tylenol 650mg/20.3ml Solution Ud) 650 mg PO Q6 PRN PRN Reason: fever > 100.4 Last Admin: 12/30/17 09:38 Dose: 650 mg Aspirin (Aspirin Chewable) 81 mg NG DAILY [facility] Last Admin: 12/31/17 09:24 Dose: 81 mg Atorvastatin Calcium (Lipitor) 40 mg PO HS [facility] Last Admin: 01/04/18 21:17 Dose: 40 mg Clopidogrel Bisulfate (Plavix) 75 mg NG DAILY [facility] Last Admin: 12/31/17 09:24 Dose: 75 mg Docusate Sodium (Colace Liquid) 100 mg PO TID [facility] Last Admin: 01/04/18 16:16 Dose: 100 mg Enoxaparin Sodium (Lovenox) 40 mg SC HS [facility] PRN Reason: Protocol Last Admin: 01/04/18 21:15 Dose: 40 mg Famotidine (Pepcid) 40 mg PO DAILY [facility] Last Admin: 01/04/18 08:37 Dose: 40 mg Ferrous Sulfate (Feosol Liq) 300 mg PO DAILY [facility] Last Admin: 01/04/18 08:36 Dose: 300 mg Folic Acid (Folic Acid) 1 mg GT DAILY [facility] Last Admin: 01/04/18 08:37 Dose: 1 mg Thiamine HCl (Vitamin B1 Tab) 100 mg NG DAILY [facility] Last Admin: 01/04/18 08:37 Dose: 100 mg - Labs Labs: 01/05/18 04:25 01/05/18 04:25 PT 12.4 Seconds (9.8-13.1) 01/01/18 07:00 INR 1.1 (0.9-1.2) 01/01/18 07:00 APTT 35.6 Seconds (25.6-37.1) 01/01/18 07:00 Assessment and Plan - Assessment and Plan (Free Text) Plan: (1) Acute CVA (cerebrovascular accident) Status: Acute (2) Altered mental status Status: Acute (3) Slurring of speech Status: Acute (4) HTN (hypertension) Status: Chronic (5) Acute metabolic encephalopathy Status: Acute (6) Acute respiratory insufficiency Status: Acute (7) DVT prophylaxis Status: Acute 62 y/o White male , initially admitted as Tez White , now identified by Police as Jesus Grayson , unknown PMH was brought by EMS after he was observed by bystanders falling in the street. Patient was lethargic on admission however arousable , noted to have a facial droop and his speech was slurred. 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 He was transferred to ICU and intubated for airway protection. Repeat CT of head showed no change but MRI showed pontine, midbrain, cerebellar hemispheres and thalami infarct. 11/22: With episode of vomiting and possible aspiration became hypotensive, tachycardic, febrile, and hypoxemic Repeat CT head 11/28 showed: Gross edematous changes affect cerebellar hemispheres bilaterally sparing only the inferior margins somewhat and causing compression on the the mid to lower brainstem. The 4th ventricle is partially effaced but no obstructive hydrocephalus appreciated at this time. Edema has extend into the bilateral thalami, right greater than left further indicative of expanding infarction. No intracranial hemorrhage. Given patient's poor prognosis medical team following him has decided that it is appropriate to " not Escalate treatment " and DNR order placed. Ethics Committee meeting recommended Emergency guardianship which is in progress. Temporary guardians came to hospital 12/20 and received all information in regards to patient's medical condition and prognosis. They agreed to DNR order, also agreed to Trach and PEG placement 1. Acute CVA/ Coma state Patient is comatose , pupils fixed , unequal size not reactive to light ,gag reflex present. Breaths over the vent and maintains his BP MRI brain showed pontine , midbrain, cerebellar hemispheres and thalamic infarct Repeat CT of head 11/28 showed :Gross edematous changes affect cerebellar hemispheres bilaterally sparing only the inferior margins somewhat and causing compression on the the mid to lower brainstem. The 4th ventricle is partially effaced but no obstructive hydrocephalus appreciated at this time. Edema has extend into the bilateral thalami, right greater than left further indicative of expanding infarction. No intracranial hemorrhage. Poor Prognosis Neurology on consult Continue ASA Sh[facility] network has been notified Given patient's poor prognosis medical team following him has decided a Do not Escalate treatment and DNR order in place. Permanent guardianship hearing planned for 01/05/18 Patient at acceptable medical risk for low risk procedure (tracheostomy), if desired by the permanent guardian. Continue to hold ASA/Plavix Repeat CT of head 12/26 -Interval evolution previously noted of large acute infarct which involves keshia in both cerebellar hemispheres including vermis. There also has been interval evolution of posterior bilateral basal nuclei ischemic changes Diffuse/confluent chronic periventricular white matter ischemic changes extending peripherally into the deep and subcortical white matter both cerebral hemispheres. In addition, there are multiple additional chronic appearing bilateral basal nuclei lacunar type infarcts also seen. There is persistent dilatation of the temporal horns and atria bilaterally likely due to asymmetric central volume loss most pronounced in the posterior temporal lobes and occipital parietal regions Discussed case with Dr Mcneill - he does not feel that pt would improved or have meaningful life ahead- pt has extensive CVA , brain does not communicate with spinal cord. 12/27 : Temporary Guardian- George Garland , given pt's very poor prognosis/ comatose state , discussed withdrawal of care - she stated that since she is not in the medical field and does not know pt, she would like to defer this decision and wait for the Public Guardianship to decide of these. 12/31: Temp Guardian agrees to Trach and PEG placement- consulted Surgery and GI Hold off on ASA and Plavix as pt is for Trach and PEG 01/05: Permanent guardianship hearing today, once declared, will obtain trach/ peg consent 2. Sepsis due to Aspiration Pneumonia-resolved Still orally Intubated since 11/16 ( ET tube changed 12/09) on Vent (PVRC/AC 16/450 /5/50%) procalcitonin was elevated , intermittent fever Off Levophed, all antibiotics d/c trachea aspirate: positive for Citrobacter and 1 blood cx positive for Staph coag negative ( ? contaminant),repeat blood cultures negative completed IV antibiotic treatment with Cipro and Vanco - now off antibiotics ID consulted : Dr. Anderson Keep HOB elevated , aspiration, precautions,respiratory toilet with frequent suctioning CXR showed no infiltrate today Repeat Trach Aspirate c/s : Beta hemolytic Strep - Unasyn started on 12/26 #01/14 - will d/c in am 3. Atelectasis , left lung likely from mucus plugging CXR showed whole left lung white out and presently opened Trach Asp C/S: Beta hemolytic Strep- Unasyn started by Dr Finn Continue Deep suctioning by Respiratory team 4. UTI-treated urine cx positive for Strep viridans - completed treatment with Vanco IV for 2 weeks 5. ? Alcoholism unclear if alcoholic, cannot obtain hx however ED note stated that patient has history of ETOH ETOH level low urine Tox : neg cont Thiamine and FA 6. Anemia, chronic dis sl. drop during hospitalization likely due to acute medical condition, blood drawing will hold off on transfusion unless Hgb drops to less than 7 or if pt shows any signs on hemodynamic instability/. 7.DVT prophylaxis Acute Lovenox
[2018-01-05] MEDS: Ferrous Sulfate 300 mg/5 mL Liq UD PO SCH (08:52)
--- NOTE | 2018-01-05 09:29 | RAD ---
HISTORY: vented COMPARISON: Comparison chest dated 01/04/2018. FINDINGS: In situ ETT, tip of which lies approximately 6.1 cm above haresh. In situ NGT, tip of which has not been included on this film though distal aspect lies within the right parasagittal mid abdomen. LUNGS: Persistent minor bibasilar atelectasis right greater than left. PLEURA: No significant pleural effusion identified, no pneumothorax apparent. CARDIOVASCULAR: Normal. OSSEOUS STRUCTURES: No significant abnormalities. VISUALIZED UPPER ABDOMEN: Normal. OTHER FINDINGS: None. IMPRESSION: ETT and NGT as above. . Persistent bibasilar atelectasis right greater than left
--- NOTE | 2018-01-05 14:13 | CP.PCM.PN ---
Subjective - Date & Time of Evaluation Date of Evaluation: 01/05/18 Time of Evaluation: 14:00 - Subjective Subjective: General Surgery Pt seen this AM. Remains intubated and is comatosed. Guardianship hearing today. Will need to follow up with outcome for consent for trach placement possibly tomorrow, if guardian agrees. Medical clearance noted as per medicine team, "Patient at acceptable medical risk for low risk procedure (tracheostomy) " Labs and vitals noted PE: Gen: Pt intubated in NAD. Not arousable to verbal stimuli. (+) arousable to touch Skin: warm and dry ENT: (+) intubated PEEP 5, fiO2 40% RR 12. OGT in place. Cardio: s1s2 rrr Lungs: (+) rhonchi bilaterally in anterior lung peres Abd: (+) anasarca, (-) apparent tenderness A/P CVA, AMS, vent dependent due to AMS Pending guardian's consent for trach tomorrow If granted consent, pt to npo tonight and lovenox to be held after tonight's dose Continue holding plavix and aspirin Objective - Vital Signs/Intake and Output Vital Signs (last 24 hours): Temp Pulse Resp BP Pulse Ox 98.7 F 90 13 133/76 100 01/05/18 12:00 01/05/18 12:00 01/05/18 12:00 01/05/18 12:00 01/05/18 12:00 Intake and Output: 01/05/18 01/05/18 06:59 18:59 Intake Total 1146 100 Output Total 1305 Balance -159 100 - Medications Medications: Current Medications Acetaminophen (Tylenol 650mg/20.3ml Solution Ud) 650 mg PO Q6 PRN PRN Reason: fever > 100.4 Last Admin: 12/30/17 09:38 Dose: 650 mg Aspirin (Aspirin Chewable) 81 mg NG DAILY [facility] Last Admin: 12/31/17 09:24 Dose: 81 mg Atorvastatin Calcium (Lipitor) 40 mg PO HS [facility] Last Admin: 01/04/18 21:17 Dose: 40 mg Clopidogrel Bisulfate (Plavix) 75 mg NG DAILY [facility] Last Admin: 12/31/17 09:24 Dose: 75 mg Docusate Sodium (Colace Liquid) 100 mg PO TID [facility] Last Admin: 06/28/18 08:52 Dose: 100 mg Enoxaparin Sodium (Lovenox) 40 mg SC [facility] PRN Reason: Protocol Last Admin: 01/04/18 21:15 Dose: 40 mg Famotidine (Pepcid) 40 mg PO DAILY [facility] Last Admin: 01/05/18 08:52 Dose: 40 mg Ferrous Sulfate (Feosol Liq) 300 mg PO DAILY [facility] Last Admin: 01/05/18 08:52 Dose: 300 mg Folic Acid (Folic Acid) 1 mg GT DAILY [facility] Last Admin: 01/05/18 08:52 Dose: 1 mg Thiamine HCl (Vitamin B1 Tab) 100 mg NG DAILY [facility] Last Admin: 01/05/18 08:53 Dose: 100 mg - Labs Labs: 01/05/18 04:25 01/05/18 04:25 PT 12.4 Seconds (9.8-13.1) 01/01/18 07:00 INR 1.1 (0.9-1.2) 01/01/18 07:00 APTT 35.6 Seconds (25.6-37.1) 01/01/18 07:00
--- NOTE | 2018-01-05 15:21 | CP.CCUPN ---
CCU Subjective - Physician Review Subjective (Free Text): Overall neuromental status unchanged with deep coma, moves and writhes shoulders in response to pain stimulus, breathing 15 on AC 12. BPs improved with SBP 130s, HR 80s. Other vitals and I/O's reviewed. No fever spikes. ROS: No other pertinent negs or positives on 10+ system review obtainable due to comatose state. PMSFH: Unknown relative to current disease state. All other Nursing and physician documentation reviewed to date; no new pertinent info noted relevant to current medical problems. EXAM- HEENT: no icterus, no gaze preference, pupils 3mm and NR, midline, blinks eyes on corneal reflex testing; +cough on ETT suctioning. NECK: No JVD, supple, carotids equal upstroke bilat/no bruits CHEST: decreased BS bases, no wheezes audible HEART: regular, distant, S1S2, no rubs or murmurs ABD: soft, no distention, no tympany, no palp tenderness, BS hypoactive EXT: No peripheral/ digital cyanosis, no calf tenderness or palpable cords, distal pulses intact and symmetrical. NEURO: flaccid x4 extremities SKIN: no rashes, warm and dry. LABS: ABG 7.51/42/115 on AC 18, TV 4540, 40% +5PEEP WBC= 7.6 HGB= 7.9 PLTs= 243K Dc=550 K= 3.6 CL=98 HCO3= 29 BUN/Cr= 15/0.4 BS= 99 CXR: ETT position Ok above haresh, no new consolidation, essentially unchanged from several days ago. ( my interp). IMPRESSION / MAJOR PROBLEMS NOW: 1. Multi-CVA involving Genie, thalamic nuclei, and cerebellum 2. Acute Resp Failure 2 #1 3. s/p Accelerated HTN 2 CVA 4. s/p S. viridans UTI 5. Possible h/o ETOH Abuse suspected PLAN: 1. Stable, non-deteriorating neurologic status, with brain stem reflexes. Temporary Guardianship ends January 06, subsequently consent for Trach withdrawn and will be presented to new Permanent Public Guardian to be appointed after this date. Therefore, no final decision made on Trach. 2. Persistent anemia, albeit from daily blood draws and no active bleeding evident. As blood test results have been stable, will change to every other day testing or if abnormalities suspected, or if there is a change in status. 3. If low BP levels evident, will not start vasopressors. In addition, transfusing PRBCs would be a life-pronging measure, will re-discuss with PMD and Guardian. 4. Present course of abx have been allowed to after over a 14 day course. No new leukocytosis nor signs of Sepsis noted. 5. Had been excessively ventilated at current rate of 18 on A/C mode, decreased set rate to 12. Renal compensation for mild chronic CO2 retention.
[2018-01-05] MEDS: Enoxaparin 40 mg Syringe SC SCH (21:20)
--- NOTE | 2018-01-05 23:28 | CP.PCM.PN ---
Subjective - Date & Time of Evaluation Date of Evaluation: 01/05/18 Time of Evaluation: 23:26 - Subjective Subjective: Surgery Progress note- Dr. Junior Discussed case with Mary Kate Hartmann court appointed POA. Case cancelled for trach tomorrow. Pending final authorization from court next week. OK to resume tube feeds, and DVT ppx Case discussed with Dr. Junior surgical attending [facility] PGY1 Mary Kate Hartmann ([phone]) Objective - Vital Signs/Intake and Output Vital Signs (last 24 hours): Temp Pulse Resp BP Pulse Ox 98.6 F 95 H 14 97/62 L 96 01/05/18 22:00 01/05/18 22:00 01/05/18 22:00 01/05/18 22:00 01/05/18 22:00 Intake and Output: 01/05/18 01/06/18 18:59 06:59 Intake Total 1270 240 Output Total 1300 Balance -30 240 - Medications Medications: Current Medications Acetaminophen (Tylenol 650mg/20.3ml Solution Ud) 650 mg PO Q6 PRN PRN Reason: fever > 100.4 Last Admin: 12/30/17 09:38 Dose: 650 mg Aspirin (Aspirin Chewable) 81 mg NG DAILY [facility] Last Admin: 12/31/17 09:24 Dose: 81 mg Atorvastatin Calcium (Lipitor) 40 mg PO HS [facility] Last Admin: 01/05/18 21:20 Dose: 40 mg Clopidogrel Bisulfate (Plavix) 75 mg NG DAILY [facility] Last Admin: 12/31/17 09:24 Dose: 75 mg Docusate Sodium (Colace Liquid) 100 mg PO TID [facility] Last Admin: 01/05/18 16:39 Dose: 100 mg Enoxaparin Sodium (Lovenox) 40 mg SC HS [facility] PRN Reason: Protocol Last Admin: 01/05/18 21:20 Dose: 40 mg Famotidine (Pepcid) 40 mg PO DAILY [facility] Last Admin: 01/05/18 08:52 Dose: 40 mg Ferrous Sulfate (Feosol Liq) 300 mg PO DAILY [facility] Last Admin: 01/05/18 08:52 Dose: 300 mg Folic Acid (Folic Acid) 1 mg GT DAILY [facility] Last Admin: 01/05/18 08:52 Dose: 1 mg Thiamine HCl (Vitamin B1 Tab) 100 mg NG DAILY [facility] Last Admin: 01/05/18 08:53 Dose: 100 mg - Labs Labs: 01/05/18 04:25 01/05/18 04:25 PT 12.4 Seconds (9.8-13.1) 01/01/18 07:00 INR 1.1 (0.9-1.2) 01/01/18 07:00 APTT 35.6 Seconds (25.6-37.1) 01/01/18 07:00
[2018-01-06] MEDS ORDERED: Chlorhexidine Gluconate 1 APPL/PKT TP ONE (03:17)
[2018-01-06 05:24] LABS: ABG ALLEN TEST YES; ARTERIAL BLOOD GAS HCO3 30.4 mmol/L (21-28); ARTERIAL BLOOD GAS HEMOGLOBIN 9.2 g/dL (11.7-17.4); ARTERIAL BLOOD GAS O2 CAPACITY 12.4 mL/dL (16-24); ARTERIAL BLOOD GAS O2 CONTENT 10.2 ML/dL (15-23); ARTERIAL BLOOD GAS PCO2 45 mm/Hg (35-45); ARTERIAL BLOOD GAS PH 7.46 (7.35-7.45); ARTERIAL BLOOD GAS PO2 41 mm/Hg (80-100); ARTERIAL BLOOD GAS TCO2 33.4 mmol/L (22-28)
[2018-01-06 05:35] LABS: BLOOD UREA NITROGEN 15 mg/dl (9-20); CALCIUM 8.2 mg/dL (8.4-10.2); GFR AFRICAN-AMERICAN > 60; GFR NON-AFRICAN AMERICAN > 60
--- NOTE | 2018-01-06 07:19 | RAD ---
HISTORY: ETT placement COMPARISON: Portable chest 01/05/2018. FINDINGS: LUNGS: Endotracheal tube terminates 8 cm above yes the haresh. Nasogastric tube is unchanged in placement. Increasing opacity at the left base suggest developing small left pleural effusion with none on the right. No pneumothorax bilaterally. Limited underlying airspace disease not excluded the medial left base. None is seen at the right. Cardiac size normal. No pulmonary vascular congestion. PLEURA: As above. CARDIOVASCULAR: As above. OSSEOUS STRUCTURES: No significant abnormalities. VISUALIZED UPPER ABDOMEN: Normal. OTHER FINDINGS: None. IMPRESSION: ET tube terminates 8 cm above the haresh. Nasogastric stable. Developing small pleural effusion with underlying medial basilar airspace disease question on the left.
[2018-01-06 08:08] LABS: HEMOGLOBIN 10.1 g/dL (12.0-18.0); MEAN CELL VOLUME 97.4 fl (80.0-94.0); MEAN CORPUSCULAR HEMOGLOBIN 31.8 pg (27.0-31.0); MEAN CORPUSCULAR HGB CONC 32.6 g/dL (33.0-37.0); RBC 3.18 Mil/uL (4.40-5.90); WHITE BLOOD COUNT 14.6 K/uL (4.8-10.8)
[2018-01-06] MEDS: Ferrous Sulfate 300 mg/5 mL Liq UD PO SCH (09:02)
--- NOTE | 2018-01-06 09:39 | CP.PCM.PN ---
Subjective - Date & Time of Evaluation Date of Evaluation: 01/06/18 Time of Evaluation: 09:39 - Subjective Subjective: PT STABLE NO NEW CHANGES HD STABLE NAD pt likley for trach today or tomorrow Objective - Vital Signs/Intake and Output Vital Signs (last 24 hours): Temp Pulse Resp BP Pulse Ox 98.8 F 92 H 11 L 99/59 L 100 01/06/18 08:00 01/06/18 08:00 01/06/18 08:00 01/06/18 08:00 01/06/18 08:00 Intake and Output: 01/06/18 01/06/18 06:59 18:59 Intake Total 1170 60 Output Total 1100 Balance 70 60 - Medications Medications: Current Medications Acetaminophen (Tylenol 650mg/20.3ml Solution Ud) 650 mg PO Q6 PRN PRN Reason: fever > 100.4 Last Admin: 12/30/17 09:38 Dose: 650 mg Aspirin (Aspirin Chewable) 81 mg NG DAILY [facility] Last Admin: 12/31/17 09:24 Dose: 81 mg Atorvastatin Calcium (Lipitor) 40 mg PO HS [facility] Last Admin: 01/05/18 21:20 Dose: 40 mg Clopidogrel Bisulfate (Plavix) 75 mg NG DAILY [facility] Last Admin: 12/31/17 09:24 Dose: 75 mg Docusate Sodium (Colace Liquid) 100 mg PO TID [facility] Last Admin: 01/06/18 09:03 Dose: 100 mg Enoxaparin Sodium (Lovenox) 40 mg SC HS [facility] PRN Reason: Protocol Last Admin: 01/05/18 21:20 Dose: 40 mg Famotidine (Pepcid) 40 mg PO DAILY [facility] Last Admin: 01/06/18 09:04 Dose: 40 mg Ferrous Sulfate (Feosol Liq) 300 mg PO DAILY [facility] Last Admin: 01/06/18 09:02 Dose: 300 mg Folic Acid (Folic Acid) 1 mg GT DAILY [facility] Last Admin: 01/06/18 09:02 Dose: 1 mg Thiamine HCl (Vitamin B1 Tab) 100 mg NG DAILY [facility] Last Admin: 01/06/18 09:04 Dose: 100 mg - Labs Labs: 01/06/18 04:45 01/06/18 04:45 PT 12.4 Seconds (9.8-13.1) 01/01/18 07:00 INR 1.1 (0.9-1.2) 01/01/18 07:00 APTT 35.6 Seconds (25.6-37.1) 01/01/18 07:00 - Constitutional Appears: Non-toxic, No Acute Distress - Head Exam Head Exam: ATRAUMATIC, NORMOCEPHALIC - Eye Exam Eye Exam: Normal appearance. absent: Scleral icterus - Respiratory Exam Respiratory Exam: Clear to Ausculation Bilateral, NORMAL BREATHING PATTERN Additional comments: intubated. sedated. - Cardiovascular Exam Cardiovascular Exam: RRR, +S1, +S2 - GI/Abdominal Exam GI & Abdominal Exam: Soft, Normal Bowel Sounds - Extremities Exam Extremities Exam: Normal Capillary Refill, Normal Inspection - Back Exam Back Exam: NORMAL INSPECTION. absent: CVA tenderness (L), CVA tenderness (R) - Neurological Exam Neurological Exam: absent: Alert, Awake - Psychiatric Exam Psychiatric exam: absent: Normal Affect, Normal Mood - Skin Skin Exam: Dry, Warm Assessment and Plan - Assessment and Plan (Free Text) Plan: (1) Acute CVA (cerebrovascular accident) Status: Acute (2) Altered mental status Status: Acute (3) Slurring of speech Status: Acute (4) HTN (hypertension) Status: Chronic (5) Acute metabolic encephalopathy Status: Acute (6) Acute respiratory insufficiency Status: Acute (7) DVT prophylaxis Status: Acute 62 y/o White male , initially admitted as Tez White , now identified by Police as Jesus Grayson , unknown PMH was brought by EMS after he was observed by bystanders falling in the street. Patient was lethargic on admission however arousable , noted to have a facial droop and his speech was slurred. 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 He was transferred to ICU and intubated for airway protection. Repeat CT of head showed no change but MRI showed pontine, midbrain, cerebellar hemispheres and thalami infarct. 11/22: With episode of vomiting and possible aspiration became hypotensive, tachycardic, febrile, and hypoxemic Repeat CT head 11/28 showed: Gross edematous changes affect cerebellar hemispheres bilaterally sparing only the inferior margins somewhat and causing compression on the the mid to lower brainstem. The 4th ventricle is partially effaced but no obstructive hydrocephalus appreciated at this time. Edema has extend into the bilateral thalami, right greater than left further indicative of expanding infarction. No intracranial hemorrhage. Given patient's poor prognosis medical team following him has decided that it is appropriate to " not Escalate treatment " and DNR order placed. Ethics Committee meeting recommended Emergency guardianship which is in progress. Temporary guardians came to hospital 12/20 and received all information in regards to patient's medical condition and prognosis. They agreed to DNR order, also agreed to Trach and PEG placement No medical contraindications for trach and peg placement likely Tuesday. RCRI score 2 for low risk procedure. 1. Acute CVA/ Coma state Patient is comatose , pupils fixed , unequal size not reactive to light, gag reflex present. Breaths over the vent and maintains his BP MRI brain showed pontine , midbrain, cerebellar hemispheres and thalamic infarct Repeat CT of head 11/28 showed :Gross edematous changes affect cerebellar hemispheres bilaterally sparing only the inferior margins somewhat and causing compressionPatient is medically stable for trach placement on the the mid to lower brainstem. The 4th ventricle is partially effaced but no obstructive hydrocephalus appreciated at this time. Edema has extend into the bilateral thalami, right greater than left further indicative of expanding infarction. No intracranial hemorrhage. Poor Prognosis Neurology on consult Continue ASA [facility] has been notified Given patient's poor prognosis medical team following him has decided a Do not Escalate treatment and DNR order in place. Permanent guardianship hearing planned for 01/05/18 Patient at acceptable medical risk for low risk procedure (tracheostomy), if desired by the permanent guardian. Continue to hold ASA/Plavix Repeat CT of head 12/26 -Interval evolution previously noted of large acute infarct which involves keshia in both cerebellar hemispheres including vermis. There also has been interval evolution of posterior bilateral basal nuclei ischemic changes Diffuse/confluent chronic periventricular white matter ischemic changes extending peripherally into the deep and subcortical white matter both cerebral hemispheres. In addition, there are multiple additional chronic appearing bilateral basal nuclei lacunar type infarcts also seen. There is persistent dilatation of the temporal horns and atria bilaterally likely due to asymmetric central volume loss most pronounced in the posterior temporal lobes and occipital parietal regions Discussed case with Dr Mcneill - he does not feel that pt would improved or have meaningful life ahead- pt has extensive CVA , brain does not communicate with spinal cord. 12/27 : Temporary Guardian- George Garland , given pt's very poor prognosis/ comatose state , discussed withdrawal of care - she stated that since she is not in the medical field and does not know pt, she would like to defer this decision and wait for the Public Guardianship to decide of these. 12/31: Temp Guardian agrees to Trach and PEG placement- consulted Surgery and GI Hold off on ASA and Plavix as pt is for Trach and PEG 01/05: Permanent guardianship hearing today, once declared, will obtain trach/ peg consent 2. Sepsis due to Aspiration Pneumonia-resolved Still orally Intubated since 11/16 ( ET tube changed 12/09) on Vent (PVRC/AC 16/450 /5/50%) procalcitonin was elevated , intermittent fever Off Levophed, all antibiotics d/c trachea aspirate: positive for Citrobacter and 1 blood cx positive for Staph coag negative ( ? contaminant),repeat blood cultures negative completed IV antibiotic treatment with Cipro and Vanco - now off antibiotics ID consulted : Dr. Anderson Keep HOB elevated , aspiration, precautions,respiratory toilet with frequent suctioning CXR showed no infiltrate today Repeat Trach Aspirate c/s : Beta hemolytic Strep - Unasyn started on 12/26 #01/14 - will d/c in am 3. Atelectasis , left lung likely from mucus plugging CXR showed whole left lung white out and presently opened Trach Asp C/S: Beta hemolytic Strep- Unasyn started by Dr Finn Continue Deep suctioning by Respiratory team 4. UTI-treated urine cx positive for Strep viridans - completed treatment with Vanco IV for 2 weeks 5. ? Alcoholism unclear if alcoholic, cannot obtain hx however ED note stated that patient has history of ETOH ETOH level low urine Tox : neg cont Thiamine and FA 6. Anemia, chronic dis sl. drop during hospitalization likely due to acute medical condition, blood drawing will hold off on transfusion unless Hgb drops to less than 7 or if pt shows any signs on hemodynamic instability/. 7.DVT prophylaxis Acute Lovenox
--- NOTE | 2018-01-06 12:24 | CP.CCUPN ---
CCU Subjective - Physician Review Subjective (Free Text): Remains in coma, no overall deterioration in status noted, continues to move / shrugs shoulders in response to pain stimuli, breathing 15 on AC 12. BPs stable with SBP 130s, HR 80s. Other vitals and I/O's reviewed. No new fever spikes. ROS: No other pertinent negs or positives on 10+ system review obtainable due to comatose state. PMSFH: Unknown relative to current disease state. All other Nursing and physician documentation reviewed to date; no new pertinent info noted relevant to current medical problems. EXAM- HEENT: no icterus, no gaze preference, pupils 3mm and NR, midline, blinks eyes on corneal reflex testing; +cough on ETT suctioning. NECK: No JVD, supple, carotids equal upstroke bilat/no bruits CHEST: decreased BS bases, no wheezes audible HEART: regular, distant, S1S2, no rubs or murmurs ABD: soft, no distention, no tympany, no palp tenderness, BS hypoactive EXT: No peripheral/ digital cyanosis, no calf tenderness or palpable cords, distal pulses intact and symmetrical. NEURO: flaccid x4 extremities SKIN: no rashes, warm and dry. LABS: ABG 7.46/45/41 suspect venous blood sample, given concomitant SPo2 was 100% on AC 12, TV 4540, 40% +5PEEP WBC= 14.6 HGB= 10.1 PLTs= 292K Hw=738 K= 4.3 CL=97 HCO3= 26 BUN/Cr= 15/0.4 BS= 100 CXR: ETT position Ok above haresh, no new consolidation ( my interp). IMPRESSION / MAJOR PROBLEMS NOW: 1. Multi-CVA involving Genie, thalamic nuclei, and cerebellum 2. Acute Resp Failure 2 #1 3. s/p Accelerated HTN 2 CVA 4. s/p S. viridans UTI 5. Possible h/o ETOH Abuse suspected PLAN: 1. Guardianship being re-obtained, trach re-scheduled in the interim for early next week. Remains off antiplatelet therapy in anticipation of procedure. 2. Medical clearance given and noted for Trach procedure. 3. Present course of abx have been allowed to after over a +14 day course. No new leukocytosis nor signs of Sepsis noted
[2018-01-06] MEDS: Enoxaparin 40 mg Syringe SC SCH (21:09)
[2018-01-07 05:48] LABS: ABG ALLEN TEST YES; ARTERIAL BLOOD GAS HCO3 32.6 mmol/L (21-28); ARTERIAL BLOOD GAS HEMOGLOBIN 8.7 g/dL (11.7-17.4); ARTERIAL BLOOD GAS O2 CAPACITY 11.8 mL/dL (16-24); ARTERIAL BLOOD GAS O2 CONTENT 11.6 ML/dL (15-23); ARTERIAL BLOOD GAS O2 SAT 98.2 % (95-98); ARTERIAL BLOOD GAS PCO2 52 mm/Hg (35-45); ARTERIAL BLOOD GAS PH 7.44 (7.35-7.45); ARTERIAL BLOOD GAS PO2 75 mm/Hg (80-100); ARTERIAL BLOOD GAS TCO2 36.9 mmol/L (22-28)
[2018-01-07 06:22] LABS: HEMOGLOBIN 8.2 g/dL (12.0-18.0); MEAN CELL VOLUME 96.5 fl (80.0-94.0); MEAN CORPUSCULAR HEMOGLOBIN 31.7 pg (27.0-31.0); MEAN CORPUSCULAR HGB CONC 32.8 g/dL (33.0-37.0); RBC 2.59 Mil/uL (4.40-5.90); RED CELL DISTRIBUTION WIDTH 20.1 % (11.5-14.5)
[2018-01-07 06:31] LABS: BLOOD UREA NITROGEN 17 mg/dl (9-20); CALCIUM 8.2 mg/dL (8.4-10.2); GFR AFRICAN-AMERICAN > 60; GFR NON-AFRICAN AMERICAN > 60
--- NOTE | 2018-01-07 07:21 | RAD ---
HISTORY: ETT placement COMPARISON: No prior. FINDINGS: LUNGS: No active pulmonary disease. PLEURA: No significant pleural effusion identified, no pneumothorax apparent. CARDIOVASCULAR: Normal. OSSEOUS STRUCTURES: No significant abnormalities. VISUALIZED UPPER ABDOMEN: Normal. OTHER FINDINGS: NG tube in the stomach. IMPRESSION: No active disease.
--- NOTE | 2018-01-07 07:35 | CP.PCM.PN ---
Subjective - Date & Time of Evaluation Date of Evaluation: 01/07/18 Time of Evaluation: 07:34 - Subjective Subjective: pt stable no acute changes permanent guardianship process underway NAD Objective - Vital Signs/Intake and Output Vital Signs (last 24 hours): Temp Pulse Resp BP Pulse Ox 99.9 F H 76 23 107/62 100 01/07/18 04:00 01/07/18 06:00 01/07/18 06:00 01/07/18 06:00 01/07/18 06:00 Vitals Reviewed GEN: intubated, coma HEENT: NCAT, PERRL, EOMI HEART: RRR, +S1S2, NO MRG LUNG: CTAB, NO WRR ABD: soft, ND, No HSM, No masses EXT: normal pedal pulses, normal capillary refill Neuro: unresponsive. SKIN: warm, dry Intake and Output: 01/07/18 01/07/18 06:59 18:59 Intake Total 1170 Output Total 1175 Balance -5 - Medications Medications: Current Medications Acetaminophen (Tylenol 650mg/20.3ml Solution Ud) 650 mg PO Q6 PRN PRN Reason: fever > 100.4 Last Admin: 12/30/17 09:38 Dose: 650 mg Aspirin (Aspirin Chewable) 81 mg NG DAILY [facility] Last Admin: 12/31/17 09:24 Dose: 81 mg Atorvastatin Calcium (Lipitor) 40 mg PO HS [facility] Last Admin: 01/06/18 21:09 Dose: 40 mg Clopidogrel Bisulfate (Plavix) 75 mg NG DAILY [facility] Last Admin: 12/31/17 09:24 Dose: 75 mg Docusate Sodium (Colace Liquid) 100 mg PO TID [facility] Last Admin: 01/06/18 16:35 Dose: 100 mg Enoxaparin Sodium (Lovenox) 40 mg SC HS [facility] PRN Reason: Protocol Last Admin: 01/06/18 21:09 Dose: 40 mg Famotidine (Pepcid) 40 mg PO DAILY [facility] Last Admin: 01/06/18 09:04 Dose: 40 mg Ferrous Sulfate (Feosol Liq) 300 mg PO DAILY [facility] Last Admin: 01/06/18 09:02 Dose: 300 mg Folic Acid (Folic Acid) 1 mg GT DAILY [facility] Last Admin: 01/06/18 09:02 Dose: 1 mg Thiamine HCl (Vitamin B1 Tab) 100 mg NG DAILY [facility] Last Admin: 01/06/18 09:04 Dose: 100 mg - Labs Labs: 01/07/18 05:30 01/07/18 05:30 PT 12.4 Seconds (9.8-13.1) 01/01/18 07:00 INR 1.1 (0.9-1.2) 01/01/18 07:00 APTT 35.6 Seconds (25.6-37.1) 01/01/18 07:00 Assessment and Plan - Assessment and Plan (Free Text) Plan: (1) Acute CVA (cerebrovascular accident) Status: Acute (2) Altered mental status Status: Acute (3) Slurring of speech Status: Acute (4) HTN (hypertension) Status: Chronic (5) Acute metabolic encephalopathy Status: Acute (6) Acute respiratory insufficiency Status: Acute (7) DVT prophylaxis Status: Acute 62 y/o White male , initially admitted as Tez White , now identified by Police as Jesus Grayson , unknown PMH was brought by EMS after he was observed by bystanders falling in the street. Patient was lethargic on admission however arousable , noted to have a facial droop and his speech was slurred. 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 He was transferred to ICU and intubated for airway protection. Repeat CT of head showed no change but MRI showed pontine, midbrain, cerebellar hemispheres and thalami infarct. 11/22: With episode of vomiting and possible aspiration became hypotensive, tachycardic, febrile, and hypoxemic Repeat CT head 11/28 showed: Gross edematous changes affect cerebellar hemispheres bilaterally sparing only the inferior margins somewhat and causing compression on the the mid to lower brainstem. The 4th ventricle is partially effaced but no obstructive hydrocephalus appreciated at this time. Edema has extend into the bilateral thalami, right greater than left further indicative of expanding infarction. No intracranial hemorrhage. Given patient's poor prognosis medical team following him has decided that it is appropriate to " not Escalate treatment " and DNR order placed. Ethics Committee meeting recommended Emergency guardianship which is in progress. Temporary guardians came to hospital 12/20 and received all information in regards to patient's medical condition and prognosis. They agreed to DNR order, also agreed to Trach and PEG placement No medical contraindications for trach and peg placement likely Tuesday. RCRI score 2 for low risk procedure. 1. Acute CVA/ Coma state Patient is comatose , pupils fixed , unequal size not reactive to light, gag reflex present. Breaths over the vent and maintains his BP MRI brain showed pontine , midbrain, cerebellar hemispheres and thalamic infarct Repeat CT of head 11/28 showed :Gross edematous changes affect cerebellar hemispheres bilaterally sparing only the inferior margins somewhat and causing compressionPatient is medically stable for trach placement on the the mid to lower brainstem. The 4th ventricle is partially effaced but no obstructive hydrocephalus appreciated at this time. Edema has extend into the bilateral thalami, right greater than left further indicative of expanding infarction. No intracranial hemorrhage. Poor Prognosis Neurology on consult Continue ASA [employer] network has been notified Given patient's poor prognosis medical team following him has decided a Do not Escalate treatment and DNR order in place. Permanent guardianship hearing planned for 01/05/18 Patient at acceptable medical risk for low risk procedure (tracheostomy), if desired by the permanent guardian. Continue to hold ASA/Plavix Repeat CT of head 12/26 -Interval evolution previously noted of large acute infarct which involves keshia in both cerebellar hemispheres including vermis. There also has been interval evolution of posterior bilateral basal nuclei ischemic changes Diffuse/confluent chronic periventricular white matter ischemic changes extending peripherally into the deep and subcortical white matter both cerebral hemispheres. In addition, there are multiple additional chronic appearing bilateral basal nuclei lacunar type infarcts also seen. There is persistent dilatation of the temporal horns and atria bilaterally likely due to asymmetric central volume loss most pronounced in the posterior temporal lobes and occipital parietal regions Discussed case with Dr Mcneill - he does not feel that pt would improved or have meaningful life ahead- pt has extensive CVA , brain does not communicate with spinal cord. 12/27 : Temporary Guardian- George Garland , given pt's very poor prognosis/ comatose state , discussed withdrawal of care - she stated that since she is not in the medical field and does not know pt, she would like to defer this decision and wait for the Public Guardianship to decide of these. 12/31: Temp Guardian agrees to Trach and PEG placement- consulted Surgery and GI Hold off on ASA and Plavix as pt is for Trach and PEG 01/05: Permanent guardianship hearing today, once declared, will obtain trach/ peg consent 2. Sepsis due to Aspiration Pneumonia-resolved Still orally Intubated since 11/16 ( ET tube changed 12/09) on Vent (PVRC/AC 16/450 /5/50%) procalcitonin was elevated , intermittent fever Off Levophed, all antibiotics d/c trachea aspirate: positive for Citrobacter and 1 blood cx positive for Staph coag negative ( ? contaminant),repeat blood cultures negative completed IV antibiotic treatment with Cipro and Vanco - now off antibiotics ID consulted : Dr. Anderson Keep HOB elevated , aspiration, precautions,respiratory toilet with frequent suctioning CXR showed no infiltrate today Repeat Trach Aspirate c/s : Beta hemolytic Strep - Unasyn started on 12/26 #01/14 - will d/c in am 3. Atelectasis , left lung likely from mucus plugging CXR showed whole left lung white out and presently opened Trach Asp C/S: Beta hemolytic Strep- Unasyn started by Dr Finn Continue Deep suctioning by Respiratory team 4. UTI-treated urine cx positive for Strep viridans - completed treatment with Vanco IV for 2 weeks 5. ? Alcoholism unclear if alcoholic, cannot obtain hx however ED note stated that patient has history of ETOH ETOH level low urine Tox : neg cont Thiamine and FA 6. Anemia, chronic dis sl. drop during hospitalization likely due to acute medical condition, blood drawing will hold off on transfusion unless Hgb drops to less than 7 or if pt shows any signs on hemodynamic instability/. 7.DVT prophylaxis Acute Lovenox
[2018-01-07] MEDS: Ferrous Sulfate 300 mg/5 mL Liq UD PO SCH (08:16)
--- NOTE | 2018-01-07 17:48 | PN ---
DATE: 01/07/2018 LOCATION: The patient in ICU, bed 435. TIME SPENT: 35 minutes. SUBJECTIVE: The patient is seen and evaluated at the bedside. Events since admission reviewed. Overnight intubated on mechanical ventilation. AC/PRVC rate 12, observed rate 14 to 16, exhaled tidal volume 480, minute ventilation 6.2 liters, FiO2 of 40%, saturation 100%, peak airway pressure 18, end-tidal CO2 of 38, remains comatose, responds to painful stimuli by moving head and shrugging of shoulder, no response to verbal stimuli. PHYSICAL EXAMINATION: VITAL SIGNS: Temperature 95.9, heart rate 85, blood pressure 115/71, mean arterial pressure 85, respiratory rate 16, oxygen saturation 100%, intake 3330, output 1725, balance positive 1605, and weight 152 pounds. HEAD, EYES, EARS, NOSE, AND THROAT: No icterus. No gaze preference. Pupils are 3 mm, nonreactive, midline. Blinks eyes on corneal reflex testing and present. Gag reflex present. NECK: No jugular venous distention. No carotid bruit. CHEST: Bilateral breath sounds diminished in intensity. HEART: Rhythm regular. S1, S2 normal. ABDOMEN: Bowel sounds present and soft. NG tube in place. EXTREMITIES: Maceration of skin left foot. DP palpable. NEUROLOGIC: Flaccid. CURRENT MEDICATIONS: Tylenol 650 every six hours p.r.n., aspirin 81 mg daily, Lipitor 40 mg daily, Plavix 75 mg daily, Colace 100 mg three times daily, Lovenox 40 subcu daily, Pepcid 40 mg daily, ferrous sulfate 300 mg daily, folic acid 1 mg daily, and thiamine 100 mg daily. LABORATORY DATA: WBC 16, hemoglobin 8.2, hematocrit 25, and platelet count of 296. PT 12.4, INR 1.1, PTT 35.6. ABG; pH of 7.44, pCO2 of 52, pO2 of 75, saturation 98.2 on AC 12, tidal volume 450, rate 12, PEEP of 5. SMA-7: Sodium 137, potassium 3.7, chloride 96, CO2 of 34, blood urea nitrogen , creatinine 0.5, calcium 8.2. Urinalysis leukoesterase negative, rbc 18, wbc 2. Toxicology noted. Serology; RPR nonreactive. HIV negative. Microbiology; sputum culture positive for beta-hemolytic Streptococcus group B. Chest x-ray, endotracheal tube at the level of the clavicle. NG tube in place. No pneumothorax, pleural effusion, haziness left lower lobe. IMPRESSION AND PLAN: Status post multiple cerebrovascular accidents involving keshia, thalamus, and cerebellum, remains comatose, prolonged intubation, awaiting for tracheostomy pending ,_ tentatively scheduled early next week. Aspirin and Plavix on hold for the procedure. Acute respiratory failure ventilator-dependent, secondary to above, status post pneumonia/left lung collapse, mucus plug, status post antibiotic for two weeks, status post Streptococcus viridans urinary tract infection, history of ethanol abuse and dependence, leukocytosis noted trending up. Monitor for evidence of infection. Prognosis remains guarded. Raul Finn MD MTDD
[2018-01-07] MEDS: Enoxaparin 40 mg Syringe SC SCH (23:06)
[2018-01-08 05:06] LABS: ABG ALLEN TEST YES; ARTERIAL BLOOD GAS HCO3 35.2 mmol/L (21-28); ARTERIAL BLOOD GAS HEMOGLOBIN 7.8 g/dL (11.7-17.4); ARTERIAL BLOOD GAS O2 CAPACITY 10.8 mL/dL (16-24); ARTERIAL BLOOD GAS O2 CONTENT 10.8 ML/dL (15-23); ARTERIAL BLOOD GAS O2 SAT 100.4 % (95-98); ARTERIAL BLOOD GAS PCO2 51 mm/Hg (35-45); ARTERIAL BLOOD GAS PH 7.48 (7.35-7.45); ARTERIAL BLOOD GAS PO2 107 mm/Hg (80-100); ARTERIAL BLOOD GAS TCO2 39.6 mmol/L (22-28)
[2018-01-08 06:03] LABS: HEMOGLOBIN 7.5 g/dL (12.0-18.0); MEAN CELL VOLUME 96.8 fl (80.0-94.0); MEAN CORPUSCULAR HEMOGLOBIN 31.7 pg (27.0-31.0); MEAN CORPUSCULAR HGB CONC 32.8 g/dL (33.0-37.0); RBC 2.36 Mil/uL (4.40-5.90); RED CELL DISTRIBUTION WIDTH 19.7 % (11.5-14.5); WHITE BLOOD COUNT 8.7 K/uL (4.8-10.8)
[2018-01-08 06:21] LABS: BLOOD UREA NITROGEN 19 mg/dl (9-20); GFR AFRICAN-AMERICAN > 60; GFR NON-AFRICAN AMERICAN > 60
--- NOTE | 2018-01-08 08:31 | RAD ---
PROCEDURE: CHEST RADIOGRAPH, 1 VIEW HISTORY: Intubated COMPARISON: 01/07/18 FINDINGS: LUNGS: Clear. PLEURA: Left pleural effusion and/or infiltrate at left base.. CARDIOVASCULAR: Normal. OSSEOUS STRUCTURES: No significant abnormalities. VISUALIZED UPPER ABDOMEN: Normal. OTHER FINDINGS: ETT above haresh.. IMPRESSION: Left pleural effusion and/or infiltrate at left base..
[2018-01-08] MEDS: Ferrous Sulfate 300 mg/5 mL Liq UD PO SCH (09:04)
--- NOTE | 2018-01-08 09:41 | CP.PCM.PN ---
Subjective - Date & Time of Evaluation Date of Evaluation: 01/08/18 Time of Evaluation: 09:30 - Subjective Subjective: Pt had low grade fever yesterday 99.9 Tmax Remains on the Vent /5/40% Tolerating tube feeding Permanent guardianship approved 01/05 Objective - Vital Signs/Intake and Output Vital Signs (last 24 hours): Temp Pulse Resp BP Pulse Ox 98.8 F 91 H 9 L 141/62 95 01/08/18 07:58 01/08/18 07:58 01/08/18 07:58 01/08/18 07:58 01/08/18 07:58 Intake and Output: 01/08/18 01/08/18 06:59 18:59 Intake Total 1170 Output Total 400 Balance 770 - Medications Medications: Current Medications Aspirin (Aspirin Chewable) 81 mg NG DAILY [facility] Last Admin: 12/31/17 09:24 Dose: 81 mg Atorvastatin Calcium (Lipitor) [address] [facility] Last Admin: 01/07/18 23:06 Dose: 40 mg Clopidogrel Bisulfate (Plavix) 75 mg NG DAILY [facility] Last Admin: 12/31/17 09:24 Dose: 75 mg Docusate Sodium (Colace Liquid) 100 mg PO TID [facility] Last Admin: 01/08/18 09:08 Dose: 100 mg Enoxaparin Sodium (Lovenox) [address] [facility] PRN Reason: Protocol Last Admin: 01/07/18 23:06 Dose: 40 mg Famotidine (Pepcid) 40 mg PO DAILY [facility] Last Admin: 01/08/18 09:04 Dose: 40 mg Ferrous Sulfate (Feosol Liq) 300 mg PO DAILY [facility] Last Admin: 01/08/18 09:04 Dose: 300 mg Folic Acid (Folic Acid) 1 mg GT DAILY [facility] Last Admin: 01/08/18 09:04 Dose: 1 mg Iron Sucrose 100 mg/ Sodium (Chloride) 105 mls @ 105 mls/hr IVPB DAILY [facility] Stop: 01/09/18 09:59 Last Admin: 01/08/18 09:08 Dose: 105 mls/hr Thiamine HCl (Vitamin B1 Tab) 100 mg NG DAILY [facility] Last Admin: 01/08/18 09:04 Dose: 100 mg - Labs Labs: 01/08/18 05:30 01/08/18 05:30 PT 12.4 Seconds (9.8-13.1) 01/01/18 07:00 INR 1.1 (0.9-1.2) 01/01/18 07:00 APTT 35.6 Seconds (25.6-37.1) 01/01/18 07:00 - Constitutional Appears: chronically ill, Intubated on Vent - Head Exam Head Exam: NORMAL INSPECTION, NORMOCEPHALIC - Eye Exam Eye Exam: Pupil Exam: Left pupil fixed ,not reactive to light, R pupil sluggishly reactive to light 4mm - ENT Exam ENT Exam: Mucous Membranes Dry, Normal External Ear Exam - Neck Exam Neck Exam: absent: Meningismus - Respiratory Exam Respiratory Exam: Rhonchi, coarse rales Additional comments: Intubated on Vent - Cardiovascular Exam Cardiovascular Exam: REGULAR RHYTHM, +S1, +S2 - GI/Abdominal Exam GI & Abdominal Exam: Soft, Normal Bowel Sounds OGT in place - Extremities Exam Extremities Exam: Pedal Edema, edematous upper ext - Neurological Exam Additional comments: responds to deep pain by sl movement of head and shoulders fixed pupils breathes over the Vent Assessment and Plan (1) Acute CVA (cerebrovascular accident) Status: Acute (2) Altered mental status Status: Acute (3) Slurring of speech Status: Acute (4) HTN (hypertension) Status: Chronic (5) Acute metabolic encephalopathy Status: Acute (6) Acute respiratory insufficiency Status: Acute (7) DVT prophylaxis Status: Acute - Assessment and Plan (Free Text) Assessment: 62 y/o White male , initially admitted as Tez White , now identified by Police as Jesus Grayson , unknown PMH was brought by EMS after he was observed by bystanders falling in the street. Patient was lethargic on admission however arousable , noted to have a facial droop and his speech was slurred. 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 He was transferred to ICU and intubated for airway protection. Repeat CT of head showed no change but MRI showed pontine, midbrain, cerebellar hemispheres and thalami infarct. 11/22: With episode of vomiting and possible aspiration became hypotensive, tachycardic, febrile, and hypoxemic Repeat CT head 11/28 showed :Gross edematous changes affect cerebellar hemispheres bilaterally sparing only the inferior margins somewhat and causing compression on the the mid to lower brainstem. The 4th ventricle is partially effaced but no obstructive hydrocephalus appreciated at this time. Edema has extend into the bilateral thalami, right greater than left further indicative of expanding infarction. No intracranial hemorrhage. Given patient's poor prognosis medical team following him has decided that it is appropriate to " not Escalate treatment " and DNR order placed. Ethics Committee meeting recommended Emergency guardianship which is in progress. Temporary guardian came to hospital 12/20 and received all information in regards to patient's medical condition and prognosis, agreed to DNR order. 01/05 : Permanent Guardianship granted. Plan for Trach and PEG placement 1. Acute CVA/ Coma state Patient is comatose , pupils fixed , unequal size not reactive to light ,gag reflex present. Breaths over the vent and maintains his BP MRI brain showed pontine , midbrain, cerebellar hemispheres and thalamic infarct Repeat CT of head 11/28 showed :Gross edematous changes affect cerebellar hemispheres bilaterally sparing only the inferior margins somewhat and causing compression on the the mid to lower brainstem. The 4th ventricle is partially effaced but no obstructive hydrocephalus appreciated at this time. Edema has extend into the bilateral thalami, right greater than left further indicative of expanding infarction. No intracranial hemorrhage. Poor Prognosis Neurology on consult ASA and Plavix- on hold for TRach and PEG [employer] network has been notified Given patient's poor prognosis medical team following him has decided a Do not Escalate treatment and DNR order in place. Repeat CT of head 12/26 -Interval evolution previously noted of large acute infarct which involves keshia in both cerebellar hemispheres including vermis. There also has been interval evolution of posterior bilateral basal nuclei ischemic changes Diffuse/confluent chronic periventricular white matter ischemic changes extending peripherally into the deep and subcortical white matter both cerebral hemispheres. In addition, there are multiple additional chronic appearing bilateral basal nuclei lacunar type infarcts also seen. There is persistent dilatation of the temporal horns and atria bilaterally likely due to asymmetric central volume loss most pronounced in the posterior temporal lobes and occipital parietal regions Discussed case with Dr Mcneill - he does not feel that pt would improved or have meaningful life ahead- pt has extensive CVA , brain does not communicate with spinal cord. 12/27 : Temporary Guardian- George Garland - given pt's very poor prognosis/ comatose state , discussed withdrawal of care - she stated that since she is not in the medical field and does not know pt, she would like to defer this decision and wait for the Public Guardianship to decide of these. 12/31: Temp Guardian agrees to Trach and PEG placement- consulted Surgery and GI Hold off on ASA and Plavix as pt is for Trach and PEG 01/05: Permanent guardianship 2. Sepsis due to Aspiration Pneumonia-resolved Still orally Intubated since 11/16 ( ET tube changed 12/09) on Vent (PVRC/AC 16/450 /5/50%) procalcitonin was elevated , intermittent fever Off Levophed, all antibiotics d/c trachea aspirate: positive for Citrobacter and 1 blood cx positive for Staph coag negative ( ? contaminant),repeat blood cultures negative completed IV antibiotic treatment with Cipro and Vanco - now off antibiotics ID consulted : Dr. Anderson Keep HOB elevated , aspiration, precautions,respiratory toilet with frequent suctioning CXR showed no infiltrate today Repeat Trach Aspirate c/s : Beta hemolytic Strep - Unasyn treatment completed 3. Atelectasis , left lung likely from mucus plugging, resolved CXR showed whole left lung white out and presently opened Trach Asp C/S: Beta hemolytic Strep- completed Unasyn Continue Deep suctioning by Respiratory team 4. UTI-treated urine cx positive for Strep viridans - completed treatment with Vanco IV for 2 weeks 5. ? Alcoholism unclear if alcoholic, cannot obtain hx however ED note stated that patient has history of ETOH ETOH level low urine Tox : neg cont Thiamine and FA 6. Anemia, chronic dis drop during hospitalization likely due to acute medical condition, blood drawing will hold off on transfusion unless Hgb drops to less than 7 or if pt shows any signs on hemodynamic instability/. will give Venofer IV 7.DVT prophylaxis Acute Lovenox
--- NOTE | 2018-01-08 15:59 | PN ---
DATE: 01/08/2018 CRITICAL CARE PROGRESS NOTE LOCATION: The patient in ICU, bed 435. TIME SPENT: 35 minutes. SUBJECTIVE: The patient is seen and evaluated at the bedside. Event since admission reviewed. Overnight, remains intubated on mechanical ventilation, day 57, on AC/PRVC rate 12, tidal volume 450, PEEP of 5, FiO2 40%, observed rate of 14, exhaled tidal volume 440 to 460, minute ventilation 5.6 L, saturation 100%, peak airway pressure is normal, end tidal CO2 39. PHYSICAL EXAMINATION: HEAD, EYE, EAR, NOSE, AND THROAT: Pupils reactive but sluggish. No icterus. No gaze preference. Blinks eyes to flashing light. Gag reflex present. Responds to pain, moving his head. No jugular venous distention, carotid bruit. CHEST: Bilateral breath sounds, diminished in intensity. HEART: Rhythm regular. S1 and S2 normal. ABDOMEN: Bowel sounds are present. Soft. NG tube in place. EXTREMITIES: Maceration of the skin, left foot, unchanged. DP palpable. NEUROLOGIC: Flaccid x4 extremities. CURRENT MEDICATIONS: Tylenol 650 every 6 hours p.r.n., aspirin 81 mg daily, Lipitor 40 mg daily, Plavix 75 mg daily, Colace 100 mg three times daily, Lovenox 40 subcu daily, Pepcid 40 mg daily, ferrous sulphate 300 mg daily, folic acid 1 mg daily, thiamine 100 mg daily. LABORATORY DATA: WBC 8.7, hemoglobin 7.5, hematocrit 22.8, platelet count 309. PT/PTT pending. ABG: pH of 7.48, PCO2 51, PO2 107, saturation 100.4 on AC/PRVC 12, 450, 40 with a PEEP of 5. SMA-7: Sodium 130, potassium 4, chloride 95, CO2 34, blood, urea, nitrogen 19, creatinine 0.4, calcium 8. Urinalysis negative. Chest x-ray: ETT above the haresh, no pneumothorax, left pleural effusion and/or infiltrate at the left base. IMPRESSION/PLAN: Status post multiple cerebrovascular accidents involving keshia, thalamus, and cerebellum, remains comatose, prolonged intubation, awaiting for tracheostomy, pending, tentatively scheduled next week. Aspirin and Plavix on hold for the procedure. May consider transfusion of packed red blood cells. Hemoglobin and hematocrit 10/30 for the procedure. Awaiting call from Gastrointestinal and surgery. Acute respiratory failure, vent dependent, secondary to above, status post pneumonia, left lung collapse, mucous plug, status post antibiotic for two weeks, status post Streptococcus viridans urinary tract infection, history of ethanol abuse and dependence, leukocytosis trending down. Monitor for any evidence of ongoing infarction. Prognosis remains guarded. Discussed with primary medical doctor. Raul Finn MD MTDD
[2018-01-08] MEDS ORDERED: Acetaminophen 650mg/20.3ml solution UD PO PRN (16:54)
[2018-01-09 05:29] LABS: ABG ALLEN TEST YES; ARTERIAL BLOOD GAS HCO3 35.7 mmol/L (21-28); ARTERIAL BLOOD GAS O2 CAPACITY 10.9 mL/dL (16-24); ARTERIAL BLOOD GAS O2 CONTENT 10.1 ML/dL (15-23); ARTERIAL BLOOD GAS PCO2 43 mm/Hg (35-45); ARTERIAL BLOOD GAS PH 7.55 (7.35-7.45); ARTERIAL BLOOD GAS PO2 51 mm/Hg (80-100); ARTERIAL BLOOD GAS TCO2 38.9 mmol/L (22-28)
[2018-01-09 05:38] LABS: HEMOGLOBIN 8.4 g/dL (12.0-18.0); MEAN CORPUSCULAR HEMOGLOBIN 31.1 pg (27.0-31.0); MEAN CORPUSCULAR HGB CONC 32.1 g/dL (33.0-37.0); RBC 2.71 Mil/uL (4.40-5.90); RED CELL DISTRIBUTION WIDTH 20.3 % (11.5-14.5); WHITE BLOOD COUNT 10.2 K/uL (4.8-10.8)
[2018-01-09 06:05] LABS: BLOOD UREA NITROGEN 14 mg/dl (9-20); CALCIUM 8.1 mg/dL (8.4-10.2); GFR AFRICAN-AMERICAN > 60; GFR NON-AFRICAN AMERICAN > 60
--- NOTE | 2018-01-09 08:20 | CP.CCUPN ---
CCU Subjective - Physician Review Subjective (Free Text): 01/09/18 The patient was Seen and examined by me at the bedside during ICU round, Medical records reviewed and Management issues were discussed and formulated with the house staff. Events reviewed Pt remains orally intubated and mechanically ventilated. PRVC AC12 TV450 FiO2 40 % PEEP5. Remains Afebrile, Currently on antibiotics with IV Vanco and Cipro BP stable. NSR on the monitor Comatosed, no improvement of mental status, unresponsive to painful stimuli. Pupils remain fixed and dilated, No corneal reflex or Gag reflex identified. intact. Patient breathing over the vent. Tolerating tube feeding. Pt off antibiotics, completed a course of Vanco and Zosyn 12/02; Sputum C/S positive Citrobacter Diversus 12/05; Urine C/S no growth (11/16: Urine C/S positive for gram positive Cocci ( Strep viridans ) 12/05; Blood C/S with no growth 12/05; Blood C/S Pos Coagulase negative Staph Last 24H I&O 1900/1575 No neurological improvement This morning labs revealed No Leucocytosis, Stable renal function. Plavix on hold due to intial plan of Trach/Peg this week Discussed the patient condition and the plans with The hospitalist Dr Mcdowell and the court appointed permanent Guardian, we reviewed the rationale, risks, benefits and alternatives to treatment, we strongly fee that patient outcome is very poor in light of extensive stroke, he has been in ICU, intubated septic with no neurological improvements in almost 2 month now, and accordingly 2 physician signed for terminal extubation and the paper was faxed to the permanent Public Guardianship (She agrees with our recommendations as outlined above). CCU Objective - Vital Signs / Intake & Output Vital Signs (Last 4 hours): Vital Signs Pulse Resp BP Pulse Ox 01/09/18 06:00 85 17 102/71 100 Intake and Output (Last 8hrs): Intake & Output 01/08/18 01/09/18 01/09/18 22:59 06:59 14:59 Intake Total 1260 240 Output Total 500 475 Balance 760 -235 Intake: Tube Feeding 960 240 Free Water Flush 300 Output: Urine 500 475 2-way Urethral 500 475 Other: # Bowel Movements 0 - Physical Exam Head: Positive for: Atraumatic, Normocephalic. Negative for: Ecchymosis, Abrasion, Laceration Pupils: Negative for: PERRL Extroacular Muscles: Negative for: EOMI Conjunctiva: Positive for: Normal. Negative for: Injected, Icteric Ears: Positive for: Normal Mouth: Positive for: Moist Mucous Membranes Pharnyx: Negative for: ERYTHEMA, EXUDATE, TONSILS ENLARGED Neck: Positive for: Trachea Midline. Negative for: JVD, Lymphadenopathy Respiratory/Chest: Positive for: Clear to Auscultation ( distant breath sounds b /l). Negative for: Rales, Retracting, Rhonchi Cardiovascular: Positive for: Regular Rate and Rhythm, Normal S1, S2, Peripheal Pulses Present (faint). Negative for: Rub, Gallop Abdomen: Positive for: Normal Bowel Sounds. Negative for: Distention, Peritoneal Signs Upper Extremity: Positive for: Capillary Refill < 2s. Negative for: Cyanosis, Erythema Lower Extremity: Negative for: Normal Inspection (DTI), Edema, NORMAL PULSES ( faint), Swelling, Temperature Abnormalties Neurological: Positive for: Other (on ventilator, no response to verbal stimuli) . Negative for: GCS=15 (4T), Speech Normal, Motor Func Grossly Intact, Normal Sensory Function Skin: Positive for: Dry. Negative for: Laceration Lymphatic: Negative for: Cervical Adenopathy Psychiatric: Positive for: Other (comatose). Negative for: Alert, Oriented x 3 - Medications Active Medications: Active Medications Generic Name Dose Route Start Last Admin Trade Name Freq PRN Reason Stop Dose Admin Acetaminophen 650 mg 01/08/18 16:54 Tylenol 650mg/20.3ml Solution Ud PO Q4 PRN Temperature Aspirin 81 mg 11/19/17 09:00 12/31/17 09:24 Aspirin Chewable NG 81 mg DAILY [facility] Administration Atorvastatin Calcium 40 mg 11/17/17 22:00 01/08/18 21:33 Lipitor PO 40 mg HS [facility]IA Administration Clopidogrel Bisulfate 75 mg 11/18/17 09:45 12/31/17 09:24 Plavix NG 75 mg DAILY [facility] Administration Docusate Sodium 100 mg 01/02/18 13:00 01/08/18 16:38 Colace Liquid PO 100 mg TID ZIA Administration Enoxaparin Sodium 40 mg 12/22/17 22:00 01/07/18 23:06 Lovenox SC 40 mg HS ZIA Administration Protocol Famotidine 40 mg 12/02/17 09:00 01/08/18 09:04 Pepcid PO 40 mg DAILY ZIA Administration Ferrous Sulfate 300 mg 12/18/17 09:00 01/08/18 09:04 Feosol Liq PO 300 mg DAILY ZIA Administration Folic Acid 1 mg 11/17/17 09:00 01/08/18 09:04 Folic Acid GT 1 mg DAILY [facility]IA Administration Iron Sucrose 100 mg/ Sodium 105 mls @ 105 mls/hr 01/08/18 09:00 01/08/18 09: 08 Chloride IVPB 01/09/18 09:59 105 mls/hr DAILY [facility] Administration Thiamine HCl 100 mg 12/12/17 09:00 01/08/18 09:04 Vitamin B1 Tab NG 100 mg DAILY ZIA Administration - Patient Studies Lab Studies: Lab Studies 01/09/18 01/09/18 01/09/18 Range/Units 05:23 05:00 04:45 WBC 10.2 (4.8-10.8) K/uL RBC 2.71 L (4.40-5.90) Mil/uL Hgb 8.4 L (12.0-18.0) g/dL Hct 26.3 L (35.0-51.0) % MCV 97.0 H (80.0-94.0) fl MCH 31.1 H (27.0-31.0) pg MCHC 32.1 L (33.0-37.0) g/dL RDW 20.3 H (11.5-14.5) % Plt Count 343 (130-400) K/uL pCO2 43 (35-45) mm/Hg pO2 51 L (80-100) mm/Hg HCO3 35.7 H (21-28) mmol/L ABG pH 7.55 H (7.35-7.45) ABG Total CO2 38.9 H (22-28) mmol/L ABG O2 Saturation 93.0 L (95-98) % ABG O2 Content 10.1 L (15-23) ML/dL ABG Base Excess 13.9 H (-2.0-3.0) mmol/L ABG Hemoglobin 8.0 L (11.7-17.4) g/dL ABG Carboxyhemoglobin 2.6 H (0.5-1.5) % POC ABG HHb (Measured) 6.7 H (0.0-5.0) % ABG Methemoglobin 1.2 (0.0-3.0) % ABG O2 Capacity 10.9 L (16-24) mL/dL Roberto Test Yes A-a O2 Difference 180.0 mm/Hg Hgb O2 Saturation 89.4 L (95.0-98.0) % Vent Mode A/c Mechanical Rate 12 FiO2 40.0 % Tidal Volume 450 PEEP 5 Sodium 136 (132-148) mmol/l Potassium 4.0 (3.6-5.0) MMOL/L Chloride 96 L (98-107) mmol/L Carbon Dioxide 32 H (22-30) mmol/L Anion Gap 12 (10-20) BUN 14 (9-20) mg/dl Creatinine 0.4 L (0.8-1.5) mg/dl Est GFR ( Amer) > 60 Est GFR (Non-Af Amer) > 60 Random Glucose 95 (75-110) mg/dL Calcium 8.1 L (8.4-10.2) mg/dL Laboratory Results - last 24 hr 01/09/18 01/09/18 01/09/18 04:45 05:00 05:23 WBC 10.2 RBC 2.71 L Hgb 8.4 L Hct 26.3 L MCV 97.0 H MCH 31.1 H MCHC 32.1 L RDW 20.3 H Plt Count 343 pCO2 43 pO2 51 L HCO3 35.7 H ABG pH 7.55 H ABG Total CO2 38.9 H ABG O2 Saturation 93.0 L ABG O2 Content 10.1 L ABG Base Excess 13.9 H ABG Hemoglobin 8.0 L ABG Carboxyhemoglobin 2.6 H POC ABG HHb (Measured) 6.7 H ABG Methemoglobin 1.2 ABG O2 Capacity 10.9 L Roberto Test Yes A-a O2 Difference 180.0 Hgb O2 Saturation 89.4 L Vent Mode A/c Mechanical Rate 12 FiO2 40.0 Tidal Volume 450 PEEP 5 Sodium 136 Potassium 4.0 Chloride 96 L Carbon Dioxide 32 H Anion Gap 12 BUN 14 Creatinine 0.4 L Est GFR ( Amer) > 60 Est GFR (Non-Af Amer) > 60 Random Glucose 95 Calcium 8.1 L Fingerstick Blood Sugar Results: 142 Critical Care Progress Note - Nutrition Nutrition: Nutrition Category Date Time Status NPO Diet [DIET] Diets 01/09/18 Breakfast Active Assessment/Plan (1) Acute respiratory insufficiency Current Visit: Yes Status: Acute Comment: Patient intubated for airway protection, due to Altered Level of consciousness Not a candidate for Vent weaning due to poor mental status Aggressive pulmonary toilet Maintain aspiration precautions GI/DVT PPX (2) Ischemic stroke Current Visit: Yes Status: Acute Comment: 11/21/2017: CT HEAD WITHOUT CONTRAST. Evolution of brain infarction is identified partially obscured at the brainstem and more obvious at the bilateral cerebral peduncle as well as small foci at both cerebellar hemispheres as discussed above. No intracranial hemorrhage or significant mass appreciable this at this time. Reiteration of age related neuro degenerative changes. 12/26/2017: Repeat CT of head Interval evolution previously noted of large acute infarct which involves keshia in both cerebellar hemispheres including vermis. There also has been interval evolution of posterior bilateral basal nuclei ischemic changes Diffuse/confluent chronic periventricular white matter ischemic changes extending peripherally into the deep and subcortical white matter both cerebral hemispheres. In addition, there are multiple additional chronic appearing bilateral basal nuclei lacunar type (3) Severe sepsis Current Visit: Yes Status: Acute Priority: High Comment: Pt off antibiotics Pt completed a course of Vanco and Zosyn for 2 weeks, Aso completed a course of IV Cipro 12/02; Sputum C/S positive Citrobacter Diversus 12/05; Urine C/S no growth (11/16: Urine C/S positive for gram positive Cocci ) 12/05; Blood C/S with no growth Last 24H I&O 2864/2300 This morning labs revealed No Leucocytosis, Stable renal function. (4) Acute metabolic encephalopathy Current Visit: Yes Status: Acute Priority: High Comment: Pt Comatosed, no improvement of mental status
--- NOTE | 2018-01-09 08:31 | RAD ---
HISTORY: Intubated. COMPARISON: 01/08/2018 FINDINGS: LUNGS: Extensive diffuse left-sided pulmonary opacity. This may be due to a combination of consolidation and left pleural effusion. This has increased in extent when compared to the prior examination. No right-sided opacity. No pneumothorax. PLEURA: As above CARDIOVASCULAR: ETT and NG tube unchanged. OSSEOUS STRUCTURES: No significant abnormalities. VISUALIZED UPPER ABDOMEN: Normal. OTHER FINDINGS: None. IMPRESSION: Increasing left-sided opacity likely combination of pleural effusion and pulmonary consolidation. Lines and tubes unchanged.
--- NOTE | 2018-01-09 08:46 | CP.PCM.PN ---
Subjective - Date & Time of Evaluation Date of Evaluation: 01/09/18 Time of Evaluation: 08:45 - Subjective Subjective: Completed form sent by Public Guardian Office for Withdrawal of care. Form faxed back. [facility]40% Pupils nonreactive to light Slight head movement to deep pain Tolerating tube feeding Objective - Vital Signs/Intake and Output Vital Signs (last 24 hours): Temp Pulse Resp BP Pulse Ox 98.8 F 89 12 95/59 L 100 01/09/18 08:00 01/09/18 08:00 01/09/18 08:00 01/09/18 08:00 01/09/18 08:00 Intake and Output: 01/09/18 01/09/18 06:59 18:59 Intake Total 630 Output Total 475 Balance 155 - Medications Medications: Current Medications Acetaminophen (Tylenol 650mg/20.3ml Solution Ud) 650 mg PO Q4 PRN PRN Reason: Temperature Aspirin (Aspirin Chewable) 81 mg NG DAILY [facility] Last Admin: 12/31/17 09:24 Dose: 81 mg Atorvastatin Calcium (Lipitor) 40 mg PO HS [facility] Last Admin: 01/08/18 21:33 Dose: 40 mg Clopidogrel Bisulfate (Plavix) 75 mg NG DAILY [facility] Last Admin: 12/31/17 09:24 Dose: 75 mg Docusate Sodium (Colace Liquid) 100 mg PO TID [facility] Last Admin: 01/08/18 16:38 Dose: 100 mg Enoxaparin Sodium (Lovenox) 40 mg SC HS [facility] PRN Reason: Protocol Last Admin: 01/07/18 23:06 Dose: 40 mg Famotidine (Pepcid) 40 mg PO DAILY [facility] Last Admin: 01/08/18 09:04 Dose: 40 mg Ferrous Sulfate (Feosol Liq) 300 mg PO DAILY [facility] Last Admin: 01/08/18 09:04 Dose: 300 mg Folic Acid (Folic Acid) 1 mg GT DAILY [facility] Last Admin: 01/08/18 09:04 Dose: 1 mg Iron Sucrose 100 mg/ Sodium (Chloride) 105 mls @ 105 mls/hr IVPB DAILY [facility] Stop: 01/09/18 09:59 Last Admin: 01/08/18 09:08 Dose: 105 mls/hr Thiamine HCl (Vitamin B1 Tab) 100 mg NG DAILY [facility]IA Last Admin: 01/08/18 09:04 Dose: 100 mg - Labs Labs: 01/09/18 05:00 01/09/18 04:45 PT 12.4 Seconds (9.8-13.1) 01/01/18 07:00 INR 1.1 (0.9-1.2) 01/01/18 07:00 APTT 35.6 Seconds (25.6-37.1) 01/01/18 07:00 - Constitutional Appears: chronically ill, Intubated on Vent - Head Exam Head Exam: NORMAL INSPECTION, NORMOCEPHALIC - Eye Exam Eye Exam: Pupil Exam: pupils fixed ,not reactive to light - ENT Exam ENT Exam: Mucous Membranes Dry, Normal External Ear Exam - Neck Exam Neck Exam: absent: Meningismus - Respiratory Exam Respiratory Exam: Rhonchi, coarse rales Additional comments: Intubated on Vent - Cardiovascular Exam Cardiovascular Exam: REGULAR RHYTHM, +S1, +S2 - GI/Abdominal Exam GI & Abdominal Exam: Soft, Normal Bowel Sounds OGT in place - Extremities Exam Extremities Exam: Pedal Edema, edematous upper ext - Neurological Exam Additional comments: responds to deep pain by sl movement of head fixed pupils breathes over the Vent Assessment and Plan (1) Acute CVA (cerebrovascular accident) Status: Acute (2) Altered mental status Status: Acute (3) Slurring of speech Status: Acute (4) HTN (hypertension) Status: Chronic (5) Acute metabolic encephalopathy Status: Acute (6) Acute respiratory insufficiency Status: Acute (7) DVT prophylaxis Status: Acute - Assessment and Plan (Free Text) Assessment: 62 y/o White male , initially admitted as Tez White , now identified by Police as Jesus Grayson , unknown PMH was brought by EMS after he was observed by bystanders falling in the street. Patient was lethargic on admission however arousable , noted to have a facial droop and his speech was slurred. 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 He was transferred to ICU and intubated for airway protection. Repeat CT of head showed no change but MRI showed pontine, midbrain, cerebellar hemispheres and thalami infarct. 5/15: With episode of vomiting and possible aspiration became hypotensive, tachycardic, febrile, and hypoxemic Repeat CT head 11/28 showed :Gross edematous changes affect cerebellar hemispheres bilaterally sparing only the inferior margins somewhat and causing compression on the the mid to lower brainstem. The 4th ventricle is partially effaced but no obstructive hydrocephalus appreciated at this time. Edema has extend into the bilateral thalami, right greater than left further indicative of expanding infarction. No intracranial hemorrhage. Given patient's poor prognosis medical team following him has decided that it is appropriate to " not Escalate treatment " and DNR order placed. Ethics Committee meeting recommended Emergency guardianship which is in progress. Temporary guardian came to hospital 12/20 and received all information in regards to patient's medical condition and prognosis, agreed to DNR order. 01/05 : Permanent Guardianship granted. 01/09: Plan for Withdrawal of care - Form completed . Hospice consult. 1. Acute CVA/ Coma state Patient is comatose , pupils fixed , unequal size not reactive to light ,gag reflex present. Breaths over the vent and maintains his BP MRI brain showed pontine , midbrain, cerebellar hemispheres and thalamic infarct Repeat CT of head 11/28 showed :Gross edematous changes affect cerebellar hemispheres bilaterally sparing only the inferior margins somewhat and causing compression on the the mid to lower brainstem. The 4th ventricle is partially effaced but no obstructive hydrocephalus appreciated at this time. Edema has extend into the bilateral thalami, right greater than left further indicative of expanding infarction. No intracranial hemorrhage. Poor Prognosis Neurology on consult ASA and Plavix [facility] network has been notified Given patient's poor prognosis medical team following him has decided a Do not Escalate treatment and DNR order in place. Repeat CT of head 12/26 -Interval evolution previously noted of large acute infarct which involves keshia in both cerebellar hemispheres including vermis. There also has been interval evolution of posterior bilateral basal nuclei ischemic changes Diffuse/confluent chronic periventricular white matter ischemic changes extending peripherally into the deep and subcortical white matter both cerebral hemispheres. In addition, there are multiple additional chronic appearing bilateral basal nuclei lacunar type infarcts also seen. There is persistent dilatation of the temporal horns and atria bilaterally likely due to asymmetric central volume loss most pronounced in the posterior temporal lobes and occipital parietal regions Discussed case with Dr Mcneill - he does not feel that pt would improved or have meaningful life ahead- pt has extensive CVA , brain does not communicate with spinal cord. 12/27 : Temporary Guardian- George Garland - given pt's very poor prognosis/ comatose state , discussed withdrawal of care - she stated that since she is not in the medical field and does not know pt, she would like to defer this decision and wait for the Public Guardianship to decide of these. 12/31: Temp Guardian agrees to Trach and PEG placement- consulted Surgery and GI 01/05: Permanent guardianship - 01/09: Hospice consult 2. Sepsis due to Aspiration Pneumonia-resolved Still orally Intubated since 11/16 ( ET tube changed 12/09) on Vent (PVRC/AC 16/450 /5/50%) procalcitonin was elevated , intermittent fever Off Levophed, all antibiotics d/c trachea aspirate: positive for Citrobacter and 1 blood cx positive for Staph coag negative ( ? contaminant),repeat blood cultures negative completed IV antibiotic treatment with Cipro and Vanco - now off antibiotics ID consulted : Dr. Anderson Keep HOB elevated , aspiration, precautions,respiratory toilet with frequent suctioning CXR showed no infiltrate today Repeat Trach Aspirate c/s : Beta hemolytic Strep - Unasyn treatment completed 3. Atelectasis , left lung likely from mucus plugging, resolved CXR showed whole left lung white out and presently opened Trach Asp C/S: Beta hemolytic Strep- completed Unasyn Continue Deep suctioning by Respiratory team 4. UTI-treated urine cx positive for Strep viridans - completed treatment with Vanco IV for 2 weeks 5. ? Alcoholism unclear if alcoholic, cannot obtain hx however ED note stated that patient has history of ETOH ETOH level low urine Tox : neg cont Thiamine and FA 6. Anemia, chronic dis drop during hospitalization likely due to acute medical condition, blood drawing will hold off on transfusion unless Hgb drops to less than 7 or if pt shows any signs on hemodynamic instability/. cont Venofer IV 7.DVT prophylaxis Acute Lovenox
[2018-01-09] MEDS: Ferrous Sulfate 300 mg/5 mL Liq UD PO SCH (10:08)
[2018-01-10 04:23] LABS: ABG ALLEN TEST YES; ARTERIAL BLOOD GAS HEMOGLOBIN 7.5 g/dL (11.7-17.4); ARTERIAL BLOOD GAS O2 CAPACITY 10.2 mL/dL (16-24); ARTERIAL BLOOD GAS O2 CONTENT 10.2 ML/dL (15-23); ARTERIAL BLOOD GAS O2 SAT 99.7 % (95-98); ARTERIAL BLOOD GAS PCO2 44 mm/Hg (35-45); ARTERIAL BLOOD GAS PH 7.53 (7.35-7.45); ARTERIAL BLOOD GAS PO2 78 mm/Hg (80-100); ARTERIAL BLOOD GAS TCO2 38.2 mmol/L (22-28)
[2018-01-10 05:51] LABS: HEMOGLOBIN 7.3 g/dL (12.0-18.0); MEAN CELL VOLUME 97.2 fl (80.0-94.0); MEAN CORPUSCULAR HEMOGLOBIN 30.8 pg (27.0-31.0); MEAN CORPUSCULAR HGB CONC 31.7 g/dL (33.0-37.0); RBC 2.37 Mil/uL (4.40-5.90); RED CELL DISTRIBUTION WIDTH 20.3 % (11.5-14.5); WHITE BLOOD COUNT 15.6 K/uL (4.8-10.8)
[2018-01-10 06:09] LABS: BLOOD UREA NITROGEN 15 mg/dl (9-20); CALCIUM 8.1 mg/dL (8.4-10.2); GFR AFRICAN-AMERICAN > 60; GFR NON-AFRICAN AMERICAN > 60
--- NOTE | 2018-01-10 07:49 | RAD ---
HISTORY: Intubated. COMPARISON: Portable chest 01/09/2018. FINDINGS: LUNGS: Endotracheal and nasogastric tubes are stable in position. Right lung remains clear. Diminishing left pleural effusion and airspace disease appreciated at the mid and inferior left lung zones. No pneumothorax bilaterally. Volume loss of the left lung shifts the mediastinum leftward although an element of this is caused rotation of the patient to the left. CARDIOVASCULAR: Normal cardiac size. No pulmonary vascular congestion. OSSEOUS STRUCTURES: No significant abnormalities. VISUALIZED UPPER ABDOMEN: Normal. OTHER FINDINGS: None. IMPRESSION: Improving left pneumonia and pleural effusion though atelectasis results in volume loss shifting the mediastinum slightly leftward.
[2018-01-10] MEDS: Ferrous Sulfate 300 mg/5 mL Liq UD PO SCH (09:43)
--- NOTE | 2018-01-10 10:55 | CP.PCM.PN ---
Subjective - Date & Time of Evaluation Date of Evaluation: 01/10/18 Time of Evaluation: 10:55 - Subjective Subjective: no changes at this time vitals reviewed no apparent distress awaiting further documentation from the state regarding further care Objective - Vital Signs/Intake and Output Vital Signs (last 24 hours): Temp Pulse Resp BP Pulse Ox 97.5 F L 84 12 95/63 L 100 01/10/18 08:00 01/10/18 10:00 01/10/18 10:00 01/10/18 10:00 01/10/18 10:00 Gen: intubated, coma HEENT: NCAT, PERRL, EOMI HEART: RRR +S1S2 LUNG: CTAB, No WRR ABD: soft no masses, no HSM Ext: warm, well perfused Back: aligned, no rashes Neuro: coma, reflexes Skin: Warm, Dry Psych: unable to assess Intake and Output: 01/10/18 01/10/18 06:59 18:59 Intake Total 1020 390 Balance 1020 390 - Medications Medications: Current Medications Acetaminophen (Tylenol 650mg/20.3ml Solution Ud) 650 mg PO Q4 PRN PRN Reason: Temperature Aspirin (Aspirin Chewable) 81 mg NG DAILY [facility] Last Admin: 12/31/17 09:24 Dose: 81 mg Atorvastatin Calcium (Lipitor) 40 mg PO HS [facility] Last Admin: 01/09/18 21:52 Dose: 40 mg Clopidogrel Bisulfate (Plavix) 75 mg NG DAILY [facility] Last Admin: 12/31/17 09:24 Dose: 75 mg Docusate Sodium (Colace Liquid) 100 mg PO TID [facility] Last Admin: 01/10/18 09:44 Dose: 100 mg Enoxaparin Sodium (Lovenox) 40 mg SC HS [facility] PRN Reason: Protocol Last Admin: 01/07/18 23:06 Dose: 40 mg Famotidine (Pepcid) 40 mg PO DAILY [facility] Last Admin: 01/10/18 10:28 Dose: 40 mg Ferrous Sulfate (Feosol Liq) 300 mg PO DAILY [facility] Last Admin: 01/10/18 09:43 Dose: 300 mg Folic Acid (Folic Acid) 1 mg GT DAILY [facility] Last Admin: 01/10/18 09:43 Dose: 1 mg Thiamine HCl (Vitamin B1 Tab) 100 mg NG DAILY [facility] Last Admin: 01/10/18 09:43 Dose: 100 mg - Labs Labs: 01/10/18 04:50 01/10/18 04:50 PT 12.4 Seconds (9.8-13.1) 01/01/18 07:00 INR 1.1 (0.9-1.2) 01/01/18 07:00 APTT 35.6 Seconds (25.6-37.1) 01/01/18 07:00 Assessment and Plan - Assessment and Plan (Free Text) Plan: 62 y/o White male , initially admitted as Tez White , now identified by Police as Jessu Grayson , unknown PMH was brought by EMS after he was observed by bystanders falling in the street. Patient was lethargic on admission however arousable , noted to have a facial droop and his speech was slurred. 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 He was transferred to ICU and intubated for airway protection. Repeat CT of head showed no change but MRI showed pontine, midbrain, cerebellar hemispheres and thalami infarct. 11/22: With episode of vomiting and possible aspiration became hypotensive, tachycardic, febrile, and hypoxemic Repeat CT head 11/28 showed :Gross edematous changes affect cerebellar hemispheres bilaterally sparing only the inferior margins somewhat and causing compression on the the mid to lower brainstem. The 4th ventricle is partially effaced but no obstructive hydrocephalus appreciated at this time. Edema has extend into the bilateral thalami, right greater than left further indicative of expanding infarction. No intracranial hemorrhage. Given patient's poor prognosis medical team following him has decided that it is appropriate to " not Escalate treatment " and DNR order placed. Ethics Committee meeting recommended Emergency guardianship which is in progress. Temporary guardian came to hospital 12/20 and received all information in regards to patient's medical condition and prognosis, agreed to DNR order. 01/05 : Permanent Guardianship granted. 01/09: Plan for Withdrawal of care - Form completed . Hospice consult. 1. Acute CVA/ Coma state Patient is comatose , pupils fixed , unequal size not reactive to light ,gag reflex present. Breaths over the vent and maintains his BP MRI brain showed pontine , midbrain, cerebellar hemispheres and thalamic infarct Repeat CT of head 11/28 showed :Gross edematous changes affect cerebellar hemispheres bilaterally sparing only the inferior margins somewhat and causing compression on the the mid to lower brainstem. The 4th ventricle is partially effaced but no obstructive hydrocephalus appreciated at this time. Edema has extend into the bilateral thalami, right greater than left further indicative of expanding infarction. No intracranial hemorrhage. Poor Prognosis Neurology on consult ASA and [facility] network has been notified Given patient's poor prognosis medical team following him has decided a Do not Escalate treatment and DNR order in place. Repeat CT of head 12/26 -Interval evolution previously noted of large acute infarct which involves keshia in both cerebellar hemispheres including vermis. There also has been interval evolution of posterior bilateral basal nuclei ischemic changes Diffuse/confluent chronic periventricular white matter ischemic changes extending peripherally into the deep and subcortical white matter both cerebral hemispheres. In addition, there are multiple additional chronic appearing bilateral basal nuclei lacunar type infarcts also seen. There is persistent dilatation of the temporal horns and atria bilaterally likely due to asymmetric central volume loss most pronounced in the posterior temporal lobes and occipital parietal regions Discussed case with Dr Mcneill - he does not feel that pt would improved or have meaningful life ahead- pt has extensive CVA , brain does not communicate with spinal cord. 12/27 : Temporary Guardian- George Garland - given pt's very poor prognosis/ comatose state , discussed withdrawal of care - she stated that since she is not in the medical field and does not know pt, she would like to defer this decision and wait for the Public Guardianship to decide of these. 12/31: Temp Guardian agrees to Trach and PEG placement- consulted Surgery and GI 01/05: Permanent guardianship - 01/09: Hospice consult 01/10: awaiting hospice consult, and documents from state regarding further care 2. Sepsis due to Aspiration Pneumonia-resolved Still orally Intubated since 11/16 ( ET tube changed 12/09) on Vent (PVRC/AC 16/450 /5/50%) procalcitonin was elevated , intermittent fever Off Levophed, all antibiotics d/c trachea aspirate: positive for Citrobacter and 1 blood cx positive for Staph coag negative ( ? contaminant),repeat blood cultures negative completed IV antibiotic treatment with Cipro and Vanco - now off antibiotics ID consulted : Dr. Anderson Keep HOB elevated , aspiration, precautions,respiratory toilet with frequent suctioning CXR showed no infiltrate today Repeat Trach Aspirate c/s : Beta hemolytic Strep - Unasyn treatment completed 3. Atelectasis , left lung likely from mucus plugging, resolved CXR showed whole left lung white out and presently opened Trach Asp C/S: Beta hemolytic Strep- completed Unasyn Continue Deep suctioning by Respiratory team 4. UTI-treated urine cx positive for Strep viridans - completed treatment with Vanco IV for 2 weeks 5. ? Alcoholism unclear if alcoholic, cannot obtain hx however ED note stated that patient has history of ETOH ETOH level low urine Tox : neg cont Thiamine and FA 6. Anemia, chronic dis drop during hospitalization likely due to acute medical condition, blood drawing will hold off on transfusion unless Hgb drops to less than 7 or if pt shows any signs on hemodynamic instability/. cont Venofer IV 7.DVT prophylaxis Acute Lovenox
--- NOTE | 2018-01-10 20:31 | PN ---
DATE: 01/10/2018 LOCATION: The patient in room 435. TIME SPENT: 25 minutes. SUBJECTIVE: The patient is seen and evaluated at the bedside. Case discussed in a.m. rounds. Discussed with permanent guardian from [facility], as the patient remains status post multiple cerebrovascular accident involving keshia thalamus and cerebellum, remains comatose, prolonged intubation, awaiting for plan for a tracheostomy and PEG, but as per discussion with the permanent guardian and as the prognosis remains poor, decision was reached to terminally extubate the patient. Currently, DNR. Hospice evaluation and seen by Hospice. We will concur with the permanent guardian and we will terminally extubate, place the patient on a nonrebreather. Hospice care in progress. Raul Finn MD
[2018-01-11 08:18] VITALS: BP 132/71; PULSE 93; RESP 13; TEMP 96.5; O2SAT 87
--- NOTE | 2018-01-11 09:40 | CP.PCM.PRO ---
Pronouncement of Note - Clinical Findings Physical Exam: No Response Verbal/Painful Stimuli, Absent Peripheral Pulses{ Carotid & Femoral}, Absent Heart & Breath Sounds, No Pupillary Light Reflex, No Corneal Reflex, Pupils Fixed & Dilated, Absence of Vital Signs - Pronouncement Time Time of Pronouncement of : 08:57 - Notifications Pronouncement Notifications: Atending Notified Aluminum Siding Installer Notified: No - Autopsy Autopsy Requested: No [place]: [id number]
--- NOTE | 2018-01-11 09:44 | CP.PCM.DIS ---
Provider - Provider Date of Admission: 11/14/17 18:26 Attending physician: Helio Beaulieu MD Time Spent in preparation of Discharge (in minutes): 30 Diagnosis - Discharge Diagnosis (1) Acute CVA (cerebrovascular accident) Status: Acute (2) Acute metabolic encephalopathy Status: Acute Priority: High (3) Acute respiratory insufficiency Status: Acute (4) Altered mental status Status: Acute Priority: High (5) Ischemic stroke Status: Acute Hospital Course - Lab Results Lab Results: Micro Results 12/24/17 05:21 Blood-Thru Central Line Blood Culture - Final NO GROWTH AFTER 5 DAYS 12/24/17 05:21 Blood-Thru Central Line Gram Stain - Final TEST NOT PERFORMED 12/23/17 18:30 Trachasp Gram Stain - Final 12/23/17 18:30 Trachasp Sputum Culture - Final Beta Hemolytic Strep Group B 12/23/17 18:42 Urine Urine Culture - Final No Growth (<1,000 CFU/ML) 12/14/17 04:20 Blood Blood Culture - Final NO GROWTH AFTER 5 DAYS 12/14/17 04:20 Blood Gram Stain - Final TEST NOT PERFORMED 12/05/17 12:08 Blood S.aureus & Coag-Neg Staph PNA FISH - Final 12/05/17 12:08 Blood Blood Culture - Final Coagulase Neg Staphylococcus 12/05/17 12:08 Blood Gram Stain - Final 12/05/17 12:08 Blood Blood Culture - Final NO GROWTH AFTER 5 DAYS 12/05/17 12:08 Blood Gram Stain - Final TEST NOT PERFORMED 12/05/17 12:08 Urine,Catheterized Urine Culture - Final No Growth (<1,000 CFU/ML) 12/02/17 18:00 Trachasp Gram Stain - Final 12/02/17 18:00 Trachasp Sputum Culture - Final Citrobacter Diversus 11/22/17 08:48 Blood Blood Culture - Final NO GROWTH AFTER 5 DAYS 11/22/17 08:48 Blood Gram Stain - Final TEST NOT PERFORMED 11/22/17 08:48 Blood Blood Culture - Final NO GROWTH AFTER 5 DAYS 11/22/17 08:48 Blood Gram Stain - Final TEST NOT PERFORMED 11/19/17 21:00 Blood-Venous Blood Culture - Final NO GROWTH AFTER 5 DAYS 11/19/17 21:00 Blood-Venous Gram Stain - Final TEST NOT PERFORMED 11/19/17 21:00 Blood-Venous Blood Culture - Final NO GROWTH AFTER 5 DAYS 11/19/17 21:00 Blood-Venous Gram Stain - Final TEST NOT PERFORMED 11/22/17 13:48 Urine,[place] Urine Culture - Final No Growth (<1,000 CFU/ML) 11/22/17 13:48 Trachasp Gram Stain - Final 11/22/17 13:48 Trachasp Sputum Culture - Final Citrobacter Diversus 11/17/17 04:30 Blood-Venous Blood Culture - Final NO GROWTH AFTER 5 DAYS 11/17/17 04:30 Blood-Venous Gram Stain - Final TEST NOT PERFORMED 11/17/17 04:40 Blood-Venous Blood Culture - Final NO GROWTH AFTER 5 DAYS 11/17/17 04:40 Blood-Venous Gram Stain - Final TEST NOT PERFORMED 11/16/17 11:40 Urine,[place] Urine Culture - Final Streptococcus Viridans 11/16/17 12:20 Sputum Gram Stain - Final 11/16/17 12:20 Sputum Sputum Culture - Final NORMAL ORAL FRANCES 11/16/17 12:20 Urine,[place] Urine Culture - Final No Growth (<1,000 CFU/ML) 11/16/17 11:40 Sputum Gram Stain - Final 11/16/17 11:40 Sputum Sputum Culture - Final NORMAL ORAL FRANCES 11/16/17 11:40 Naris MRSA Culture (Admit) - Final MRSA NOT DETECTED Most Recent Lab Values WBC 15.6 K/uL (4.8-10.8) H D 01/10/18 04:50 RBC 2.37 Mil/uL (4.40-5.90) L 01/10/18 04:50 Hgb 7.3 g/dL (12.0-18.0) L 01/10/18 04:50 Hct 23.0 % (35.0-51.0) L 01/10/18 04:50 MCV 97.2 fl (80.0-94.0) H 01/10/18 04:50 MCH 30.8 pg (27.0-31.0) 01/10/18 04:50 MCHC 31.7 g/dL (33.0-37.0) L 01/10/18 04:50 RDW 20.3 % (11.5-14.5) H 01/10/18 04:50 Plt Count 348 K/uL (130-400) 01/10/18 04:50 MPV 8.1 fl (7.2-11.7) 01/02/18 05:00 Neut % (Auto) 58.3 % (50.0-75.0) 01/02/18 05:00 Lymph % (Auto) 26.8 % (20.0-40.0) 01/02/18 05:00 [place] % (Auto) 10.0 % (0.0-10.0) 01/02/18 05:00 Eos % (Auto) 4.0 % (0.0-4.0) 01/02/18 05:00 Baso % (Auto) 0.9 % (0.0-2.0) 01/02/18 05:00 Neut # (Auto) 4.4 K/uL (1.8-7.0) 01/02/18 05:00 Lymph # (Auto) 2.0 K/uL (1.0-4.3) 01/02/18 05:00 [place] # (Auto) 0.7 K/uL (0.0-0.8) 01/02/18 05:00 Eos # (Auto) 0.3 K/uL (0.0-0.7) 01/02/18 05:00 Baso # (Auto) 0.1 K/uL (0.0-0.2) 01/02/18 05:00 Neutrophils % (Manual) 88 % (42-75) H 12/02/17 04:20 Band Neutrophils % 2 % (0-2) 12/02/17 04:20 Lymphocytes % (Manual) 5 % (20-50) L 12/02/17 04:20 Monocytes % (Manual) 4 % (0-10) 12/02/17 04:20 Eosinophils % (Manual) 1 % (0-7) 11/26/17 04:25 Basophils % (Manual) 1 % (0-2) 12/02/17 04:20 Platelet Estimate Normal (NORMAL) 12/02/17 04:20 ESR 19 mm/hr (0-20) 11/16/17 12:40 PT 12.4 Seconds (9.8-13.1) 01/01/18 07:00 INR 1.1 (0.9-1.2) 01/01/18 07:00 APTT 35.6 Seconds (25.6-37.1) 01/01/18 07:00 pCO2 44 mm/Hg (35-45) 01/10/18 04:00 pO2 78 mm/Hg (80-100) L 01/10/18 04:00 HCO3 35.0 mmol/L (21-28) H 01/10/18 04:00 ABG pH 7.53 (7.35-7.45) H 01/10/18 04:00 ABG Total CO2 38.2 mmol/L (22-28) H 01/10/18 04:00 ABG O2 Saturation 99.7 % (95-98) H 01/10/18 04:00 ABG O2 Content 10.2 ML/dL (15-23) L 01/10/18 04:00 ABG Base Excess 12.9 mmol/L (-2.0-3.0) H 01/10/18 04:00 ABG Hemoglobin 7.5 g/dL (11.7-17.4) L 01/10/18 04:00 ABG Carboxyhemoglobin 2.9 % (0.5-1.5) H 01/10/18 04:00 POC ABG HHb (Measured) 0.3 % (0.0-5.0) 01/10/18 04:00 ABG Methemoglobin 1.4 % (0.0-3.0) 01/10/18 04:00 ABG O2 Capacity 10.2 mL/dL (16-24) L 01/10/18 04:00 Roberto Test Yes 01/10/18 04:00 ABG Potassium 4.2 mmol/L (3.6-5.2) 11/26/17 05:35 VBG pH 7.49 (7.32-7.43) H 12/08/17 12:50 VBG pCO2 50 mmHg (40-60) 12/08/17 12:50 VBG HCO3 34.8 mmol/L 12/08/17 12:50 VBG Total CO2 22.5 mmol/L (22-28) 11/22/17 10:30 VBG O2 Sat (Calc) 87.5 % (40-65) H 12/08/17 12:50 VBG Base Excess 13.0 mmol/L (0.0-2.0) H 12/08/17 12:50 VBG Hgb O2 Saturation 84.6 % (95.0-98.0) L 12/08/17 12:50 VBG Potassium 3.5 mmol/L (3.6-5.2) L 11/22/17 10:30 A-a O2 Difference 152.0 mm/Hg 01/10/18 04:00 Hemoglobin 11.1 g/dL (11.7-17.4) L 12/08/17 12:50 Hgb O2 Saturation 95.4 % (95.0-98.0) 01/10/18 04:00 Sodium 133.0 mmol/L (132-148) 11/26/17 05:35 Chloride 104.0 mmol/L (98-107) 11/26/17 05:35 Glucose 162 mg/dL (75-110) H 11/26/17 05:35 Lactate 0.9 mmol/L (0.7-2.1) 11/26/17 05:35 Vent Mode A/c 01/10/18 04:00 Mechanical Rate 12 01/10/18 04:00 FiO2 40.0 % 01/10/18 04:00 Tidal Volume 450 01/10/18 04:00 PEEP 5 01/10/18 04:00 CPAP 5 12/11/17 05:39 Crit Value Called To Yenifer carrion rn 01/06/18 05:13 Crit Value Called By 333 01/06/18 05:13 Crit Value Read Back Y 01/06/18 05:13 Blood Gas Notified Time 523 01/06/18 05:13 Sodium 135 mmol/l (132-148) 01/10/18 04:50 Potassium 3.7 MMOL/L (3.6-5.0) 01/10/18 04:50 Chloride 96 mmol/L (98-107) L 01/10/18 04:50 Carbon Dioxide 36 mmol/L (22-30) H 01/10/18 04:50 Anion Gap 7 (10-20) L 01/10/18 04:50 BUN 15 mg/dl (9-20) 01/10/18 04:50 Creatinine 0.4 mg/dl (0.8-1.5) L 01/10/18 04:50 Est GFR ( Amer) > 60 01/10/18 04:50 Est GFR (Non-Af Amer) > 60 01/10/18 04:50 POC Glucose (mg/dL) 150 mg/dL (65-110) H 12/10/17 21:32 Random Glucose 99 mg/dL (75-110) 01/10/18 04:50 Hemoglobin A1c 5.6 % (4.2-6.5) 11/15/17 06:00 Serum Osmolality 303 mosm/kg (272-300) H 12/01/17 04:30 Lactic Acid 1.4 MMOL/L (0.7-2.1) 12/22/17 10:35 Calcium 8.1 mg/dL (8.4-10.2) L 01/10/18 04:50 Phosphorus 3.1 mg/dl (2.5-4.5) 11/26/17 04:25 Magnesium 2.1 MG/DL (1.6-2.3) 11/26/17 04:25 Total Bilirubin 0.7 mg/dl (0.2-1.3) 12/20/17 04:20 AST 65 U/L (17-59) H 12/20/17 04:20 ALT 35 U/L (21-72) 12/20/17 04:20 Alkaline Phosphatase 107 U/L (38-126) 12/20/17 04:20 Ammonia 13 umo/L (16-60) L D 11/16/17 12:40 Troponin I < 0.0120 ng/mL (0.00-0.120) 11/14/17 16:30 C-Reactive Protein 74.50 mg/L (0.0-9.9) H 11/16/17 12:40 Total Protein 7.6 G/DL (6.3-8.2) 12/20/17 04:20 Albumin 3.1 g/dL (3.5-5.0) L 12/20/17 04:20 Globulin 4.5 gm/dL (2.2-3.9) H 12/20/17 04:20 Albumin/Globulin Ratio 0.7 (1.0-2.1) L 12/20/17 04:20 Triglycerides 118 mg/DL (0-149) 11/15/17 06:00 Cholesterol 180 mg/dL (0-199) 11/15/17 06:00 LDL Cholesterol Direct 117 mg/dL (0-129) 11/15/17 06:00 HDL Cholesterol 43 MG/DL (30-70) 11/15/17 06:00 Vitamin B12 292 pg/mL (239-931) 11/15/17 06:00 25-OH Vitamin D Total < 12.8 NG/ML (30.0-100.0) L 11/15/17 06:00 Ethanolamine TNP 11/14/17 19:09 Procalcitonin 0.11 NG/ML (0.19-0.49) L 12/22/17 10:35 Thyroxine (T4) 7.05 ug/dl (5.5-11.0) 11/15/17 06:00 Total T3 1.00 nmol/L (1.49-2.60) L 11/15/17 06:00 TSH 3rd Generation 0.61 mIU/ML (0.46-4.68) 11/15/17 06:00 Prolactin 7.6 ng/mL (3.7-17.9) 11/16/17 12:40 Arterial Blood Potassium 4.2 mmol/L (3.6-5.2) 11/26/17 05:35 Venous Blood Potassium 3.5 mmol/L (3.6-5.2) L 11/22/17 10:30 Urine Color Yellow (YELLOW) 11/16/17 11:40 Urine Clarity Slighty-cloudy (Clear) 11/16/17 11:40 Urine pH 6.0 (5.0-8.0) 11/16/17 11:40 Ur Specific [place] 1.016 (1.003-1.030) 11/16/17 11:40 Urine Protein Negative mg/dL (NEGATIVE) 11/16/17 11:40 Urine Glucose (UA) Neg mg/dL (Normal) 11/16/17 11:40 Urine Ketones 20 mg/dL (NEGATIVE) 11/16/17 11:40 Urine Blood Moderate (NEGATIVE) 11/16/17 11:40 Urine Nitrate Negative (NEGATIVE) 11/16/17 11:40 Urine Bilirubin Negative (NEGATIVE) 11/16/17 11:40 Urine Urobilinogen 2.0 mg/dL (0.2-1.0) 11/16/17 11:40 Ur Leukocyte Esterase Neg [place]/uL (Negative) 11/16/17 11:40 Urine RBC (Auto) 18 /hpf (0-3) H 11/16/17 11:40 Urine Microscopic WBC 2 /hpf (0-5) 11/16/17 11:40 Ur Squamous Epith Cells 1 /hpf (0-5) 11/16/17 11:40 Amorphous Sediment Rare /ul (<OCC) H 11/16/17 11:40 Urine Bacteria Rare (<OCC) 11/16/17 11:40 Vancomycin Trough < 5.0 ug/mL (5.0-10.0) L 11/27/17 04:18 Random Vancomycin 14.7 ug/mL 12/10/17 04:19 Urine Opiates Screen Negative (NEGATIVE) 11/14/17 18:30 Urine Methadone Screen Negative (NEGATIVE) 11/14/17 18:30 Ur Barbiturates Screen Negative (NEGATIVE) 11/14/17 18:30 Ur Phencyclidine Scrn Negative (NEGATIVE) 11/14/17 18:30 Ur Amphetamines Screen Negative (NEGATIVE) 11/14/17 18:30 U Benzodiazepines Scrn Negative (NEGATIVE) 11/14/17 18:30 U Oth Cocaine Metabols Negative (NEGATIVE) 11/14/17 18:30 U Cannabinoids Screen Negative (NEGATIVE) 11/14/17 18:30 Toxicology Panel TNP 11/14/17 19:09 Alcohol, Quantitative < 10 mg/dl (0-10) 11/14/17 16:30 Methyl Alcohol Level TNP 11/14/17 19:09 Isopropanol TNP 11/14/17 19:09 Acetone Level TNP 11/14/17 19:09 RPR Nonreactive (NONREACTIVE) 11/15/17 08:15 HSV I IgG Ab 26.40 index H 11/17/17 09:55 HSV II IgG <0.90 index 11/17/17 09:55 HIV 1&2 Ag/Ab, 4th Gen Nonreactive (Nonreactive) 11/16/17 12:40 Blood Type O POSITIVE 12/24/17 05:00 Blood Type Confirm O POSITIVE 12/24/17 10:10 Antibody Screen Negative 12/24/17 05:00 BBK History Checked No verified bt 12/24/17 05:00 - Hospital Course Hospital Course: 62 y/o White male , initially admitted as Tez Christopher , now identified by Police as Jesus Creglia , unknown PMH was brought by EMS after he was observed by bystanders falling in the street. Patient was lethargic on admission however arousable , noted to have a facial droop and his speech was slurred. 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 He was transferred to ICU and intubated for airway protection. Repeat CT of head showed no change but MRI showed pontine, midbrain, cerebellar hemispheres and thalami infarct. 11/22: With episode of vomiting and possible aspiration became hypotensive, tachycardic, febrile, and hypoxemic Repeat CT head 11/28 showed :Gross edematous changes affect cerebellar hemispheres bilaterally sparing only the inferior margins somewhat and causing compression on the the mid to lower brainstem. The 4th ventricle is partially effaced but no obstructive hydrocephalus appreciated at this time. Edema has extend into the bilateral thalami, right greater than left further indicative of expanding infarction. No intracranial hemorrhage. Given patient's poor prognosis medical team following him has decided that it is appropriate to " not Escalate treatment " and DNR order placed. Ethics Committee meeting recommended Emergency guardianship which is in progress. Temporary guardian came to hospital 12/20 and received all information in regards to patient's medical condition and prognosis, agreed to DNR order. 01/05 : Permanent Guardianship granted. 01/09: Plan for Withdrawal of care - Form completed . Hospice consult. 01/11: Patient was terminally extubated yesterday. Today patient was continued on full comfort care measures. O2 mask discontinued as it did not provide any comfort measures. Patient pronounced at 0857AM this morning. See note for exam. 1. Acute CVA/ Coma state Patient is comatose , pupils fixed , unequal size not reactive to light ,gag reflex present. Breaths over the vent and maintains his BP MRI brain showed pontine , midbrain, cerebellar hemispheres and thalamic infarct Repeat CT of head 11/28 showed :Gross edematous changes affect cerebellar hemispheres bilaterally sparing only the inferior margins somewhat and causing compression on the the mid to lower brainstem. The 4th ventricle is partially effaced but no obstructive hydrocephalus appreciated at this time. Edema has extend into the bilateral thalami, right greater than left further indicative of expanding infarction. No intracranial hemorrhage. Poor Prognosis Neurology on consult [facility] and [facility] network has been notified Given patient's poor prognosis medical team following him has decided a Do not Escalate treatment and DNR order in place. Repeat CT of head 12/26 -Interval evolution previously noted of large acute infarct which involves keshia in both cerebellar hemispheres including vermis. There also has been interval evolution of posterior bilateral basal nuclei ischemic changes Diffuse/confluent chronic periventricular white matter ischemic changes extending peripherally into the deep and subcortical white matter both cerebral hemispheres. In addition, there are multiple additional chronic appearing bilateral basal nuclei lacunar type infarcts also seen. There is persistent dilatation of the temporal horns and atria bilaterally likely due to asymmetric central volume loss most pronounced in the posterior temporal lobes and occipital parietal regions Discussed case with Dr Mcneill - he does not feel that pt would improved or have meaningful life ahead- pt has extensive CVA , brain does not communicate with spinal cord. 12/27 : Temporary Guardian- George Garland - given pt's very poor prognosis/ comatose state , discussed withdrawal of care - she stated that since she is not in the medical field and does not know pt, she would like to defer this decision and wait for the Public Guardianship to decide of these. 12/31: Temp Guardian agrees to Trach and PEG placement- consulted Surgery and GI 01/05: Permanent guardianship - 01/09: Hospice consult 01/10: awaiting hospice consult, and documents from state regarding further care 01/11: Patient was terminally extubated yesterday. Today patient was continued on full comfort care measures. O2 mask discontinued as it did not provide any comfort measures. Patient pronounced at 0857AM this morning. See note for exam. 2. Sepsis due to Aspiration Pneumonia-resolved Still orally Intubated since 11/16 ( ET tube changed 12/09) on Vent (PVRC/AC 16/450 /5/50%) procalcitonin was elevated , intermittent fever Off Levophed, all antibiotics d/c trachea aspirate: positive for Citrobacter and 1 blood cx positive for Staph coag negative ( ? contaminant),repeat blood cultures negative completed IV antibiotic treatment with Cipro and Vanco - now off antibiotics ID consulted : Dr. Anderson Keep HOB elevated , aspiration, precautions,respiratory toilet with frequent suctioning CXR showed no infiltrate today Repeat Trach Aspirate c/s : Beta hemolytic Strep - Unasyn treatment completed 3. Atelectasis , left lung likely from mucus plugging, resolved CXR showed whole left lung white out and presently opened Trach Asp C/S: Beta hemolytic Strep- completed Unasyn Continue Deep suctioning by Respiratory team 4. UTI-treated urine cx positive for Strep viridans - completed treatment with Vanco IV for 2 weeks 5. ? Alcoholism unclear if alcoholic, cannot obtain hx however ED note stated that patient has history of ETOH ETOH level low urine Tox : neg cont Thiamine and FA 6. Anemia, chronic dis drop during hospitalization likely due to acute medical condition, blood drawing will hold off on transfusion unless Hgb drops to less than 7 or if pt shows any signs on hemodynamic instability/. cont Venofer IV 7.DVT prophylaxis Acute Lovenox Discharge Exam - Head Exam Additional comments: see note. Discharge Plan - Follow Up Plan Condition: FAIR Disposition: WITH WITHOUT AUTOPSY
== END 2018-01-11 12:00 | DRG 64 ==
LOC: H.ER 15:26 → H.ERHOLD 18:26 → EDBD 18:26 → H.TEL 21:49 → H.ICU/CCU 11-16 10:10
PROC: 0BH17EZ Insertion of Endotracheal Airway into Trachea, Via Natural or Artificial Opening (ICD-10-PCS; principal; 2017-11-16)
PROC: 5A1955Z Respiratory Ventilation, Greater than 96 Consecutive Hours (ICD-10-PCS; 2017-11-16)
PROC: 3E0H76Z Introduction of Nutritional Substance into Lower GI, Via Natural or Artificial Opening (ICD-10-PCS; 2017-11-16)
PROC: 06HM33Z Insertion of Infusion Device into Right Femoral Vein, Percutaneous Approach (ICD-10-PCS; 2017-11-22)
PROC: 05HM33Z Insertion of Infusion Device into Right Internal Jugular Vein, Percutaneous Approach (ICD-10-PCS; 2017-11-24)
PROC: 3E0234Z Introduction of Serum, Toxoid and Vaccine into Muscle, Percutaneous Approach (ICD-10-PCS; 2017-11-30)
DX: I63.9 Cerebral infarction, unspecified (principal); G93.6 Cerebral edema; R40.20 Unspecified coma; A41.9 Sepsis, unspecified organism; J69.0 Pneumonitis due to inhalation of food and vomit; G93.41 Metabolic encephalopathy; J96.01 Acute respiratory failure with hypoxia; R65.20 Severe sepsis without septic shock; N39.0 Urinary tract infection, site not specified; E87.3 Alkalosis; Z99.11 Dependence on respirator [ventilator] status; T17.898A Other foreign object in other parts of respiratory tract causing other injury, initial encounter; J98.11 Atelectasis; R29.810 Facial weakness; R47.81 Slurred speech; Z66 Do not resuscitate; Z51.5 Encounter for palliative care; D63.8 Anemia in other chronic diseases classified elsewhere; Z78.1 Physical restraint status; E87.6 Hypokalemia; R40.2430 Glasgow coma scale score 3-8, unspecified time; D69.59 Other secondary thrombocytopenia; B95.4 Other streptococcus as the cause of diseases classified elsewhere; I10 Essential (primary) hypertension; Z23 Encounter for immunization; N50.89 Other specified disorders of the male genital organs; B95.7 Other staphylococcus as the cause of diseases classified elsewhere